=== PATIENT | female | born 1945 | race Caucasian/White ===

== ENCOUNTER 2017-10-25 20:29 | Inpatient (IN) ==
--- OUTSIDE RECORDS SUMMARY | 2017-10-25 21:13 | External Medical Summary | Referral Summary ---
:1945 [facility] Address [address] [place] [address] Care Team Providers Name Role Phone Josh Canas Primary Care Physician Encounter VC Date(s): 08/20/16 - 08/20/16 [facility] [address] [place] [address] [place] Discharge Diagnosis: Lower urinary tract symptoms (LUTS) Discharge Diagnosis: Acute pain of left shoulder Discharge Diagnosis: Left shoulder pain Discharge Diagnosis: Lower urinary tract symptoms (LUTS) Discharge Diagnosis: Diabetes mellitus type 2, uncontrolled, with complications Discharge Disposition: 01-Home or Self Care Attending Physician: Danna Clifton MD Admitting Physician: Josh Canas DO Vital Signs Most recent to oldest [Reference Range]: 1 Temperature Oral [35.8-37.3 degC] 36.1 degC (08/20/16 2:38 PM) Peripheral Pulse Rate [60-100 bpm] 80 bpm (08/20/16 2:38 PM) Respiratory Rate [14-20 br/min] 20 br/min (08/20/16 2:38 PM) Blood Pressure [90-140/60-90 mmHg] 136/82 mmHg (08/20/16 2:38 PM) Problem List Condition Effective Dates Status Health Status Informant Acute pain(Confirmed) Active Antimicrobial resistant Active organism(Confirmed)1 Anxiety(Confirmed) Active At risk for activity Active intolerance(Confirmed)2 At risk for falls(Confirmed)3 Active At risk for infection(Confirmed)4 Active At risk for injury(Confirmed)5 Active At risk for unstable blood glucose Active level(Confirmed)6 At risk of pressure sore(Confirmed) Active Bowel dysfunction(Confirmed)7 Active Chronic back pain(Confirmed) Active Back pain, chronic(Confirmed) Active Chronic tension headaches(Confirmed) Active Coronary disease(Confirmed) < 01/08/15 Resolved Diabetes(Confirmed) < 01/27/14 Resolved patient Gastroparesis due to DM(Confirmed) Active ESBL(Confirmed)8 Active Fluid imbalance(Confirmed)9 Active H/O osteopenia(Confirmed) Active Heart disease(Confirmed) Active patient Hypercholesteremia(Confirmed) Active patient Hypertension(Confirmed) Active patient Acute kidney injury(Confirmed) Active Insomnia(Confirmed) Active Knowledge deficit(Confirmed)10 Active LBP (low back pain)(Confirmed) Active Depression with anxiety(Confirmed) Active Chronic insomnia(Confirmed) Active Depression(Confirmed) Active Tissue perfusion Active alteration(Confirmed)11 Diabetes mellitus type 2, Active uncontrolled, with complications(Confirmed) 1Urine from NOT FOUND collected 04/13/16 12:36:00 [id number] added automatically by system based on initiation of At Risk for Activity Intolerance Plan of Oyff0Lfbf problem was added by Discern Expert.4Problem added automatically by system based on initiation of At Risk for Infection in Nutrition Planof Magi9Ymkgsbi added automatically by system based on initiation of Risk for Injury Plan of Ehni9Dqcveww added automatically by system based on initiation of At Risk for Unstable Blood Glucose Planof Twvd8Ytxihme added automatically by system based on initiation of Bowel Dysfunction Plan of Bult7Tlosj from NOT FOUND collected 09/07/15 17:48:00 [id number] added automatically by system based on initiation of Fluid Volume Imbalance Plan of [id number] added automatically by system based on initiation of Knowledge Deficit Plan of [id number] added automatically by system based on initiation of Tissue Perfusion Cerebral Plan of Care Allergies, Adverse Reactions, Alerts Substance Reaction Severity Status Macrodantin Convulsion Severe Active penicillin Hives Medium Active Medications acetaminophen 500 mg oral tablet 500 mg 1 tabs, Oral, q8hr, Headache, 0 Refill(s) Start Date: 09/14/15 Status: Orderedaspirin 81 mg oral tablet 1 tabs, Oral, Daily, # 30 tabs, 0 Refill(s), other reason (Rx) Start Date: 06/14/14 Status: OrderedGlucometer (DME) DME Item Glucometer (1) Lancets ( 1 box) Test Strips ( 1 box) 6 refills each on Test Strips , Lancets INSURANCE WILL COVER ON EACH Test FBS, 2 Hours after each Meal Daily Diag:E11.65 Length: 99months HgbA1C: 9.1 11/01/2015, See Instructions,... Start Date: 11/22/15 Status: OrderedKeflex 500 mg oral capsule 500 mg 1 caps, Oral, BID, X 7 days, # 14 caps, 0 Refill(s), Pharmacy: [facility], 1 capsOral BID,x7 days Start Date: 08/20/16 Stop Date: 08/27/16 Status: OrderedLevemir 100 units/mL subcutaneous solution 30 units, SubCutaneous, Bedtime (once a day), please give patient 28 day supply , # 10 mL, 0 Refill(s), Pharmacy: [facility], 30 units SubCutaneous Bedtime (once a day),Instr:please give patient 28 day supply Start Date: 05/09/16 Status: Orderedlisinopril 10 mg oral tablet 10 mg 1 tabs, Oral, Daily, 0 Refill(s) Start Date: 01/03/16 Status: OrderedmetFORMIN 500 mg oral tablet, extended release 1,000 mg 2 tabs, Oral, BID, Take with meals, start with 1 tab BID x 1 week, then 2 tabs qAM and 1tabqPM x1 week, then 2 tabs BID, # 120 tabs, 6 Refill(s), Pharmacy: [place] [id number], 2 tabs OralBID,x30 days,Instr:Take with meals , start with 1... Start Date: 11/22/15 Stop Date: 06/19/16 Status: OrderedNovoLOG 100 units/mL subcutaneous solution See Instructions, INJECT 8 UNITS SUBCUTANEOUSLY THREE TIMES DAILY BEFORE MEAL(S) , # 10 unknown unit,eRx: [facility] Start Date: 07/30/16 Status: OrderedReglan 10 mg oral tablet 10 mg 1 tabs, Oral, QID, # 120 tabs, 0 Refill(s), Pharmacy: [facility], 1 tabs Oral QID Start Date: 11/01/15 Status: Orderedsertraline 100 mg oral tablet See Instructions, TAKE TWO TABLETS BY MOUTH ONCE DAILY, # 60 tabs, 2 Refill(s), eRx: [facility], TAKE TWO TABLETS BY MOUTH ONCE DAILY Start Date: 02/28/16 Status: Ordered Results Hematology Most recent to oldest [Reference Range]: 1 WBC [4.8-10.8 10*3/uL] 9.1 10*3/uL (08/20/16 3:24 PM) RBC [4.00-5.20] 4.72 (08/20/16 3:24 PM) Hgb [12.0-16.0 gm/dL] 12.8 gm/dL (08/20/16 3:24 PM) Hct [37.0-47.0 %] 40.9 % (08/20/16 3:24 PM) MCV [82.0-99.0 fL] 86.7 fL (08/20/16 3:24 PM) MCH [27.0-32.0 pg] 27.1 pg (08/20/16 3:24 PM) MCHC [32.0-36.0 gm/dL] 31.3 gm/dL *LOW* (08/20/16 3:24 PM) RDW [11.5-14.5 %] 14.1 % (08/20/16 3:24 PM) Platelet [150-400 10*3/uL] 196 10*3/uL (08/20/16 3:24 PM) MPV [8.8-14.8 fL] 11.0 fL (08/20/16 3:24 PM) Chemistry Most recent to oldest [Reference Range]: 1 Sodium Lvl [135-144 mEq/L] 134 mEq/L *LOW* (08/20/16 3:24 PM) Potassium Lvl [3.5-5.2 mEq/L] 5.5 mEq/L *HI* (08/20/16 3:24 PM) Chloride [99-111 mEq/L] 104 mEq/L (08/20/16 3:24 PM) CO2 [22-31 mEq/L] 19 mEq/L *LOW* (08/20/16 3:24 PM) AGAP [3-20] 11 (08/20/16 3:24 PM) BUN [10-20 mg/dL] 28 mg/dL *HI* (08/20/16 3:24 PM) Glucose Lvl [70-99 mg/dL] 461 mg/dL *HHI* (08/20/16 3:24 PM) Creatinine Lvl [0.57-1.11 mg/dL] 1.35 mg/dL *HI* (08/20/16 3:24 PM) eGFR [>60 mL/min] 39 mL/min 1 *ABN* (08/20/16 3:24 PM) Calcium Lvl [8.9-10.5 mg/dL] 9.6 mg/dL (08/20/16 3:24 PM) Albumin Lvl [3.4-4.8 gm/dL] 4.2 gm/dL (08/20/16 3:24 PM) Phosphorus [2.3-4.7 mg/dL] 3.7 mg/dL (08/20/16 3:24 PM) Hgb A1c [4.1-5.6 %] 10.0 % *HI* (08/20/16 3:24 PM) eAvg Glucose 240.3 mg/dL (08/20/16 3:24 PM) 1Result Comment: Multiply eGFR results by 1.21 for race.Urinalysis Most recent to oldest [Reference Range]: 1 UA Color Yellow (08/20/16 3:28 PM) UA Appear Sl Cloudy (08/20/16 3:28 PM) UA pH [5.0-8.0] 5.5 (08/20/16 3:28 PM) UA Leuk Est [Negative] Pos 1+ *ABN* (08/20/16 3:28 PM) UA Nitrite [Negative] Positive *ABN* (08/20/16 3:28 PM) UA Protein [Negative] Trace *ABN* (08/20/16 3:28 PM) UA Glucose [Negative] Pos 3+ *ABN* (08/20/16 3:28 PM) UA Ketones [Negative] Negative (08/20/16 3:28 PM) UA Urobilinogen [<=1.0 mg/dL] 0.2 mg/dL (08/20/16 3:28 PM) UA Bili [Negative] Negative (08/20/16 3:28 PM) UA Blood [Negative] Trace *ABN* (08/20/16 3:28 PM) UA Spec Grav [1.003-1.030] 1.015 (08/20/16 3:28 PM) Type Cl Catch (08/20/16 3:28 PM) UA WBC [0-4 /HPF] >50 /HPF *ABN* (08/20/16 3:28 PM) UA RBC [0-4] 0-4 (08/20/16 3:28 PM) Epithelial Cells 5-10 (08/20/16 3:28 PM) UA Hyal Cast [0-3] 1-3 (08/20/16 3:28 PM) Immunizations Given and Recorded Vaccine Date Status Refusal Reason influenza virus vaccine, inactivated 05/09/16 Given influenza virus vaccine, inactivated1 05/24/15 Given influenza virus vaccine, inactivated2 05/24/15 Given influenza virus vaccine, inactivated 06/14/14 Given pneumococcal 23-polyvalent vaccine3 01/28/14 Given 1Early/Late Reason: Other : DID NOT CROSS [id number] Comment: did not cross [id number]/Late Reason: Other : STATUS Procedures Procedure Date Related Diagnosis Body Site Open Reduction Internal Fixation Ankle (Left)1 11/01/14 Adrenalectomy Appendectomy Cholecystectomy Hysterectomy Provision of stents or bite blocks Total knee arthroplasty 1auto-populated from documented surgical case Social History Social History Type Response Smoking Status Never smoker Assessment and Plan No data available for this section
--- OUTSIDE RECORDS SUMMARY | 2017-10-25 21:13 | External Medical Summary | Referral Summary ---
:[address] [facility] Address [address] [place] [address] Care Team Providers Name Role Phone Josh Canas Primary Care Physician Encounter VC Date(s): 04/25/16 - 04/25/[address] [facility] [address], [place] [address] Discharge Diagnosis: Left foot pain Discharge Diagnosis: Contusion of foot, right Discharge Diagnosis: Accidental fall Discharge Disposition: 01-Home or Self Care Attending Physician: Benja Moran MD Admitting Physician: Benja Moran MD Vital Signs Most recent to oldest [Reference Range]: 1 Temperature Oral [35.8-37.3 degC] 36.8 degC (04/25/16 10:08 AM) Peripheral Pulse Rate [60-100 bpm] 94 bpm (04/25/16 12:29 PM) Respiratory Rate [14-20 br/min] 16 br/min (04/25/16 10:08 AM) Blood Pressure [90-140/60-90 mmHg] 141/82 mmHg *HI* (04/25/16 12:29 PM) SpO2 100 % (04/25/16 12:29 PM) Problem List Condition Effective Dates Status [...] Chronic tension headaches(Confirmed) Active Coronary disease(Confirmed) < 5/24/15 Resolved Diabetes(Confirmed) < 01/27/14 Resolved patient Gastroparesis [...] 1Urine from NOT FOUND collected 04/13/16 12:36:00 [id number] added automatically by system based on initiation of At Risk for Activity Intolerance Plan of Xlnq8Uznw problem was added by Discern Expert.4Problem added automatically by system based on initiation of At Risk for Infection in Nutrition Planof Scby7Teybzdr added automatically by system based on initiation of Risk for Injury Plan of Wqnd1Nhgcuvq added automatically by system based on initiation of At Risk for Unstable Blood Glucose Planof Cysc0Sdpnsix added automatically by system based on initiation of Bowel Dysfunction Plan of Zfgf8Fgsqy from NOT FOUND collected 09/07/15 17:48:00 [id number] added automatically by system based on initiation of Fluid Volume Imbalance Plan of Qykp76Qjxlqak added automatically by system based on initiation of Knowledge Deficit Plan of Pqxh61Aoeekby added automatically by system based on initiation [...] 11/01/2015, See Instructions,... Start Date: 11/22/15 Status: OrderedLevemir 100 units/mL subcutaneous solution 35 units, SubCutaneous, Bedtime (once a day), # 15 mL, 3 Refill(s), Pharmacy: [facility], 35 units SubCutaneous Bedtime (once a day) Start Date: 01/19/16 Status: Orderedlisinopril 10 mg oral tablet 10 mg 1 tabs, Oral, Daily, 0 Refill(s) Start Date: 01/03/16 Status: OrderedmetFORMIN 500 mg oral tablet, extended release 1,000 mg 2 tabs, Oral, BID, Take with meals, start with 1 tab BID x 1 week, then 2 tabs qAM and 1tabqPM x1 week, then 2 tabs BID, # 120 tabs, 6 Refill(s), Pharmacy: [facility], 2 tabs OralBID,x30 days,Instr:Take with meals , start with 1... Start Date: 11/22/15 Stop Date: 06/19/16 Status: OrderedNovoLOG 10 units, SubCutaneous, TIDAC, 0 Refill(s) Start Date: 11/01/15 Status: OrderedNovoLOG 100 units/mL subcutaneous solution 8 units, SubCutaneous, TIDAC, # 10 mL, 0 Refill(s), Pharmacy: [facility], 8 units SubCutaneous TIDAC Start Date: 04/24/16 Status: OrderedReglan 10 mg oral tablet 10 mg 1 tabs, Oral, QID, # 120 tabs, 0 Refill(s), Pharmacy: [facility], 1 tabs Oral QID Start Date: 11/01/15 Status: Orderedsertraline 100 mg oral tablet See Instructions, TAKE TWO TABLETS BY MOUTH ONCE DAILY, # 60 tabs, 2 Refill(s), eRx: [facility], TAKE TWO TABLETS BY MOUTH ONCE DAILY Start Date: 02/28/16 Status: OrderedtraMADol 50 mg oral tablet 50 mg 1 tabs, Oral, q12hr, as needed for pain, X 3 days, # 6 tabs, 0 Refill(s) Start Date: 04/25/16 Stop Date: 04/28/16 Status: Ordered Results No data available for this section Immunizations Vaccine Date Refusal Reason influenza virus vaccine, inactivated1 05/24/15 influenza virus vaccine, inactivated 06/14/14 pneumococcal 23-polyvalent vaccine2 01/28/14 1Early/Late Reason: Other : DID NOT CROSS [id number] Reason: Other : STATUS Procedures Procedure Date Related Diagnosis Body Site Open Reduction Internal Fixation Ankle (Left)1 11/01/14 Adrenalectomy Appendectomy Cholecystectomy Hysterectomy Provision of stents or bite blocks Total knee arthroplasty 1auto-populated from documented surgical case Social History Social History Type Response Smoking Status Never smoker Assessment and Plan No data available for this section
--- OUTSIDE RECORDS SUMMARY | 2017-10-25 21:13 | External Medical Summary | Referral Summary ---
:1945 Author Organization [facility] Address [address] [place] [address] Care Team Providers Name Role Phone Josh Canas Primary Care Physician Encounter VC Date(s): 04/13/16 - 04/13/16 [facility] [address], [place] [address] Discharge Diagnosis: Neck muscle strain Discharge Diagnosis: Acute UTI Discharge Disposition: 01-Home or Self Care Attending Physician: Chay Wen MD Admitting Physician: Chay Wen MD Vital Signs Most recent to oldest [Reference Range]: 1 Temperature Oral [35.8-37.3 degC] 36.8 degC (04/13/16 11:46 AM) Peripheral Pulse Rate [60-100 bpm] 83 bpm (04/13/16 1:41 PM) Heart Rate Monitored [60-100 bpm] 73 bpm (04/13/16 1:22 PM) Respiratory Rate [14-20 br/min] 18 br/min (04/13/16 1:41 PM) Blood Pressure [90-140/60-90 mmHg] 118/95 mmHg (04/13/16 1:41 PM) Mean Arterial Pressure, Cuff 103 mmHg (04/13/16 1:22 PM) SpO2 98 % (04/13/16 1:41 PM) Problem List Condition Effective Dates Status Health Status Informant Acute pain(Confirmed) Active Anxiety(Confirmed) Active At risk for activity Active intolerance(Confirmed)1 At risk for falls(Confirmed)2 Active At risk for infection(Confirmed)3 Active At risk for injury(Confirmed)4 Active At risk for unstable blood glucose Active level(Confirmed)5 At risk of pressure sore(Confirmed) Active Bowel dysfunction(Confirmed)6 Active Chronic back pain(Confirmed) Active Back pain, chronic(Confirmed) Active Chronic tension headaches(Confirmed) Active Coronary disease(Confirmed) < 01/08/15 Resolved Diabetes(Confirmed) < 01/27/14 Resolved patient Gastroparesis due to DM(Confirmed) Active ESBL(Confirmed)7 Active Fluid imbalance(Confirmed)8 Active H/O osteopenia(Confirmed) Active Heart disease(Confirmed) Active patient Hypercholesteremia(Confirmed) Active patient Hypertension(Confirmed) Active patient Acute kidney injury(Confirmed) Active Insomnia(Confirmed) Active Knowledge deficit(Confirmed)9 Active LBP (low back pain)(Confirmed) Active Depression with anxiety(Confirmed) Active Chronic insomnia(Confirmed) Active Depression(Confirmed) Active Tissue perfusion Active alteration(Confirmed)10 Diabetes mellitus type 2, Active uncontrolled, with complications(Confirmed) 1Problem added automatically by system based on initiation of At Risk for Activity Intolerance Plan of Rafo2Ngtg problem was added by Discern Expert.3Problem added automatically by system based on initiation of At Risk for Infection in Nutrition Planof Daon7Yipknkz added automatically by system based on initiation of Risk for Injury Plan of Zmsf8Kfbuabo added automatically by system based on initiation of At Risk for Unstable Blood Glucose Planof Cyxx8Blfjphb added automatically by system based on initiation of Bowel Dysfunction Plan of Rvzm2Lnzdh from NOT FOUND collected 09/07/15 17:48:00 [id number] added automatically by system based on initiation of Fluid Volume Imbalance Plan of Jukp9Mokswfr added automatically by system based on initiation of Knowledge Deficit Plan of Gdpj75Jjpknzn added automatically by system based on initiation [...] other reason (Rx) Start Date: 06/14/14 Status: Orderedcephalexin 500 mg oral tablet 500 mg 1 tabs, Oral, BID, X 7 days, # 14 tabs, 0 Refill(s) Start Date: 04/13/16 Stop Date: 04/20/16 Status: Orderedcyclobenzaprine 10 mg oral tablet 10 mg 1 tabs, Oral, TID, as needed for spasm, X 5 days, # 15 tabs, 0 Refill(s) Start Date: 04/13/16 Stop Date: 04/18/16 Status: OrderedGlucometer (DME) DME Item Glucometer (1) [...] day), # 15 mL, 3 Refill(s), Pharmacy: [facility], 35 units SubCutaneous Bedtime (once a day) Start Date: 01/19/16 Status: Orderedlisinopril 10 mg oral tablet 10 mg 1 tabs, Oral, Daily, 0 Refill(s) Start Date: 01/03/16 Status: OrderedLortab 5/325 oral tablet 1 tabs, Oral, q6hr, X 3 days, # 12 tabs, 0 Refill(s) Start Date: 04/13/16 Stop Date: 04/16/16 Status: OrderedmetFORMIN 500 mg oral tablet, extended release 1,000 mg 2 tabs, Oral, BID, Take with meals, start with 1 tab BID x 1 week, then 2 tabs qAM and 1tabqPM x1 week, then 2 tabs BID, # 120 tabs, 6 Refill(s), Pharmacy: [facility], 2 tabs OralBID,x30 days,Instr:Take with meals , start with 1... Start Date: 11/22/15 Stop Date: 06/19/16 Status: OrderedNovoLOG 10 units, SubCutaneous, TIDAC, 0 Refill(s) Start Date: 11/01/15 Status: OrderedReglan 10 mg oral tablet 10 mg 1 tabs, Oral, QID, # 120 tabs, 0 Refill(s), Pharmacy: [facility], 1 tabs Oral QID Start Date: 11/01/15 Status: Orderedsertraline 100 mg oral tablet See Instructions, TAKE TWO TABLETS BY MOUTH ONCE DAILY, # 60 tabs, 2 Refill(s), eRx: [facility], TAKE TWO TABLETS BY MOUTH ONCE DAILY Start Date: 02/28/16 Status: Ordered Results Chemistry Most recent to oldest [Reference Range]: 1 Sodium Venous [136-144 mEq/L] 136 mEq/L (04/13/16 12:41 PM) Potassium Venous [3.6-5.1 mEq/L] 4.5 mEq/L 1 (04/13/16 12:41 PM) Calcium Ionized Venous [1.19-1.41 mmol/L] 1.15 mmol/L *LOW* (04/13/16 12:41 PM) Total CO2 Venous [25-29 mEq/L] 14 mEq/L *LOW* (04/13/16 12:41 PM) HGB Venous NPT [12.0-16.0 gm/dL] 12.9 gm/dL (04/13/16 12:41 PM) HCT Venous [37.0-47.0 %] 38.0 % (04/13/16 12:41 PM) Glucose Venous [70-100 mg/dL] 169 mg/dL *HI* (04/13/16 12:41 PM) BUN Venous [4-20] 25 *HI* (04/13/16 12:41 PM) Creatinine Venous [0.4-1.0 mg/dL] 1.2 mg/dL *HI* (04/13/16 12:41 PM) Venous CL [99-109 mEq/L] 114 mEq/L *HI* (04/13/16 12:41 PM) Anion Gap, Les [3-20] 8 (04/13/16 12:41 PM) 1Result Comment: This test was performed on a whole blood specimen. The presence or absence of hemolysis cannot be assessed. Hemolysis can falsely elevate potassium levels. Normals are for venous specimens only.Urinalysis Most recent to oldest [Reference Range]: 1 UA Color Yellow (04/13/16 12:36 PM) UA Appear Cloudy *ABN* (04/13/16 12:36 PM) UA pH [5.0-8.0] 5.0 (04/13/16 12:36 PM) UA Leuk Est [Negative] Pos 3+ *ABN* (04/13/16 12:36 PM) UA Nitrite [Negative] Positive *ABN* (04/13/16 12:36 PM) UA Protein [Negative] Negative (04/13/16 12:36 PM) UA Glucose [Negative] Negative (04/13/16 12:36 PM) UA Ketones [Negative] Negative (04/13/16 12:36 PM) UA Urobilinogen [<1.0] Negative (04/13/16 12:36 PM) UA Bili [Negative] Negative (04/13/16 12:36 PM) UA Blood [Negative] Negative (04/13/16 12:36 PM) UA Spec Grav [1.003-1.030] 1.025 (04/13/16 12:36 PM) Type Clean Catch (04/13/16 12:36 PM) UA WBC [0-4 /HPF] >50 /HPF *ABN* (04/13/16 12:36 PM) UA RBC [0-2] 2-5 (04/13/16 12:36 PM) Epithelial Cells 5-10 (04/13/16 12:36 PM) UA Bacteria Numerous *ABN* (04/13/16 12:36 PM) UA Hyal Cast [0-3] 4-6 *ABN* (04/13/16 12:36 PM) UA Mucous Present (04/13/16 12:36 PM) Immunizations Vaccine Date Refusal Reason influenza virus vaccine, inactivated1 05/24/15 influenza virus vaccine, inactivated 06/14/14 pneumococcal 23-polyvalent vaccine2 01/28/14 1Early/Late Reason: Other : DID NOT CROSS [id number]/Late Reason: Other : STATUS Procedures Procedure Date Related Diagnosis Body Site Open Reduction Internal Fixation Ankle (Left)1 11/01/14 Adrenalectomy Appendectomy Cholecystectomy Hysterectomy Provision of stents or bite blocks Total knee arthroplasty 1auto-populated from documented surgical case Social History Social History Type Response Smoking Status Never smoker Assessment and Plan No data available for this section
--- OUTSIDE RECORDS SUMMARY | 2017-10-25 21:15 | External Medical Summary | Referral Summary ---
:1945 [facility] Address [address] [place] [address] Care Team Providers Name Role Phone Josh Canas Primary Care Physician Encounter VC Date(s): 02/27/15 - 02/27/15 [facility] [address] [place] [address] [place] Discharge Diagnosis: Type 2 diabetes mellitus not at goal Discharge Diagnosis: Ankle pain, left Discharge Disposition: 01-Home or Self Care Attending Physician: Som Hernández MD Admitting Physician: Josh Canas DO Vital Signs No data available for this section Problem List Condition Effective Dates Status Health Status Informant Acute pain(Confirmed) Active Anxiety(Confirmed) Active At risk for activity Active intolerance(Confirmed)1 At risk for falls(Confirmed)2 Active At risk for infection(Confirmed)3 Active At risk for injury(Confirmed)4 Active At risk for unstable blood glucose Active level(Confirmed)5 At risk of pressure sore(Confirmed) Active Chronic back pain(Confirmed) Active Back pain, chronic(Confirmed) Active Chronic tension headaches(Confirmed) Active Coronary disease(Confirmed) < 01/08/15 Resolved Diabetes(Confirmed) < 01/27/14 Resolved patient H/O osteopenia(Confirmed) Active Heart disease(Confirmed) Active patient Hypercholesteremia(Confirmed) Active patient Hypertension(Confirmed) Active patient Acute kidney injury(Confirmed) Active Insomnia(Confirmed) Active Knowledge deficit(Confirmed)6 Active LBP (low back pain)(Confirmed) Active Depression with anxiety(Confirmed) Active Chronic insomnia(Confirmed) Active Depression(Confirmed) Active Tissue perfusion Active alteration(Confirmed)7 Diabetes mellitus type 2, Active uncontrolled, with complications(Confirmed) 1Problem added automatically by system based on initiation of At Risk for Activity Intolerance Plan of Yvzq6Lowc problem was added by Discern Expert.3Problem added automatically by system based on initiation of At Risk for Infection in Nutrition Planof Mzon3Qhbvped added automatically by system based on initiation of Risk for Injury Plan of Migx8Vvnsvvr added automatically by system based on initiation of At Risk for Unstable Blood Glucose Planof Cdkb3Ktlhchu added automatically by system based on initiation of Knowledge Deficit Plan of Bxrf3Iymrcyh added automatically by system based on initiation of Tissue Perfusion Cerebral Plan of Care Allergies, Adverse Reactions, Alerts Substance Reaction Severity Status Macrodantin Convulsion Severe Active penicillin Hives Medium Active Medications aspirin 81 mg oral tablet 1 tabs, Oral, Daily, # 30 tabs, 0 Refill(s), other reason (Rx) Start Date: 06/14/14 Status: OrderedbusPIRone 15 mg oral tablet 15 mg 1 tabs, Oral, BID, 0 Refill(s) Start Date: 07/15/15 Status: OrderedhydrOXYzine hydrochloride 50 mg oral tablet 50 mg 1 tabs, Oral, QID, as needed for anxiety, # 40 tabs, 3 Refill(s), Pharmacy : [facility], 1 tabs Oral QID,PRN:as needed for anxiety Start Date: 08/24/15 Status: OrderedLevemir 100 units/mL subcutaneous solution 30 units, SubCutaneous, Bedtime (once a day), # 15 mL, 3 Refill(s), Pharmacy: [facility], 30 units SubCutaneous Bedtime (once a day) Start Date: 07/24/15 Status: OrderedmetFORMIN 1000 mg oral tablet 1,000 mg 1 tabs, Oral, BID, # 60 tabs, 3 Refill(s), Pharmacy: [facility], 1 tabs Oral BID Start Date: 06/05/15 Status: Orderedmetoprolol tartrate 25 mg oral tablet 25 mg 1 tabs, Oral, BID, # 60 tabs, 0 Refill(s), Pharmacy: [facility] Start Date: 07/16/15 Status: OrderedMiscellaneous DME DME Item Test Strips for Glucometer (Insurance will cover) Test Four Times Daily: FBS, 2 hours after each Meal Quanity: 1 Box (100) Length of Need: 99 months Diag: E11.8 HgbA1C: 8.8 07/15/2015, See Instructions, # 1 boxes, 0 Refill(s), Supply Start Date: 07/24/15 Status: OrderedNovoLOG 100 units/mL subcutaneous solution 10 units, SubCutaneous, TIDAC, # 15 mL, 3 Refill(s), Pharmacy: [facility], 10 units SubCutaneous TIDAC Start Date: 07/24/15 Status: OrderedReglan 10 mg oral tablet 10 mg, Oral, Daily, # 30 tabs, 3 Refill(s), Pharmacy: [facility], 10 mg Oral Daily Start Date: 03/22/15 Status: OrderedtraZODone 50 mg oral tablet 50 mg 1 tabs, Oral, Bedtime (once a day), # 30 tabs, 0 Refill(s), Pharmacy: [facility], 1 tabs Oral Bedtime (once a day) Start Date: 05/10/15 Status: OrderedVoltaren 1% topical gel 1 deric, Topical, QID, as needed for pain, # 100 g, 0 Refill(s) Start Date: 07/14/15 Status: OrderedWellbutrin XL 150 mg/24 hours oral tablet, extended release 150 mg 1 tabs, Oral, q24hr, # 30 tabs, 0 Refill(s), Pharmacy: [facility], 1 tabs Oral q24hr Start Date: 05/10/15 Status: OrderedZoloft 100 mg oral tablet 200 mg 2 tabs, Oral, Daily, # 60 tabs, 3 Refill(s), Pharmacy: [facility], 2 tabs Oral Daily,x30 days Start Date: 06/19/15 Stop Date: 10/17/15 Status: Ordered Results Chemistry Most recent to oldest [Reference Range]: 1 Sodium Lvl [135-144 mEq/L] 137 mEq/L (02/27/15 2:51 PM) Potassium Lvl [3.5-5.2 mEq/L] 5.4 mEq/L *HI* (02/27/15 2:51 PM) Chloride [99-111 mEq/L] 106 mEq/L (02/27/15 2:51 PM) CO2 [22-31 mEq/L] 26 mEq/L (02/27/15 2:51 PM) AGAP [3-20] 5 (02/27/15 2:51 PM) BUN [10-20 mg/dL] 15 mg/dL (02/27/15 2:51 PM) Glucose Lvl [70-99 mg/dL] 219 mg/dL *HI* (02/27/15 2:51 PM) Creatinine Lvl [0.57-1.11 mg/dL] 0.98 mg/dL (02/27/15 2:51 PM) eGFR [>60 mL/min] 56 mL/min 1 *ABN* (02/27/15 2:51 PM) Calcium Lvl [8.9-10.5 mg/dL] 9.5 mg/dL (02/27/15 2:51 PM) 1Result Comment: Multiply eGFR results by 1.21 for race. Immunizations Vaccine Date Refusal Reason influenza virus vaccine, inactivated1 05/24/15 influenza virus vaccine, inactivated 06/14/14 pneumococcal 23-polyvalent vaccine2 01/28/14 1Early/Late Reason: Other : DID NOT CROSS [id number] Reason: Other : STATUS Procedures Procedure Date Related Diagnosis Body Site Open Reduction Internal Fixation Ankle (Left)1 11/01/14 Adrenalectomy Appendectomy Cholecystectomy Hysterectomy Provision of stents or bite blocks Total knee arthroplasty 1auto-populated from documented surgical case Social History Social History Type Response Smoking Status Never smoker Assessment and Plan No data available for this section
--- OUTSIDE RECORDS SUMMARY | 2017-10-25 21:15 | External Medical Summary | Referral Summary ---
:1945 Author [facility] Address [address] [place] [address] Care Team Providers Name Role Phone Josh Canas Primary Care Physician Encounter VC Date(s): 01/12/15 - 01/12/15 [facility] [address] [place] [address] [place] Discharge Disposition: 01-Home or Self Care Attending Physician: Josh Canas DO Admitting Physician: Josh Canas DO Vital Signs [...] At Risk for Activity Intolerance Plan of Cwlk2Xcih problem was added by Discern Expert.3Problem added automatically by system based on initiation of At Risk for Infection in Nutrition Planof Qbst8Fomvkky added automatically by system based on initiation of Risk for Injury Plan of Eoci0Yaojxjs added automatically by system based on initiation of At Risk for Unstable Blood Glucose Planof Jzpu3Vdfacre added automatically by system based on initiation of Knowledge Deficit Plan of Tmkr0Waeqvvb added automatically by system based on initiation [...] as needed for anxiety, # 40 tabs, 0 Refill(s), Pharmacy : [facility], 1 tabs Oral QID,PRN:as needed for anxiety Start Date: 07/24/15 Status: OrderedLevemir 100 units/mL subcutaneous solution 30 units, SubCutaneous, Bedtime (once a day), # 15 mL, 3 Refill(s), Pharmacy: [facility], 30 units SubCutaneous Bedtime (once a day) Start Date: 07/24/15 Status: OrderedmetFORMIN 1000 mg oral tablet 1,000 mg 1 tabs, Oral, BID, # 60 tabs, 3 Refill(s), Pharmacy: [facility], 1 tabs Oral BID Start Date: 06/05/15 Status: Orderedmetoprolol tartrate 25 mg oral tablet 25 mg 1 tabs, Oral, BID, # 60 tabs, 0 Refill(s), Pharmacy: [facility] Start Date: 07/16/15 Status: [...] TIDAC, # 15 mL, 3 Refill(s), Pharmacy: [facility], 10 units SubCutaneous TIDAC Start Date: 07/24/15 Status: OrderedReglan 10 mg oral tablet 10 mg, Oral, Daily, # 30 tabs, 3 Refill(s), Pharmacy: [facility], 10 mg Oral Daily Start Date: 03/22/15 Status: OrderedtraZODone 50 mg oral tablet 50 mg 1 tabs, Oral, Bedtime (once a day), # 30 tabs, 0 Refill(s), Pharmacy: [facility], 1 tabs Oral Bedtime (once a day) Start Date: 05/10/15 Status: OrderedVoltaren 1% topical gel 1 deric, Topical, QID, as needed for pain, # 100 g, 0 Refill(s) Start Date: 07/14/15 Status: OrderedWellbutrin XL 150 mg/24 hours oral tablet, extended release 150 mg 1 tabs, Oral, q24hr, # 30 tabs, 0 Refill(s), Pharmacy: [facility], 1 tabs Oral q24hr Start Date: 05/10/15 Status: OrderedZoloft 100 mg oral tablet 200 mg 2 tabs, Oral, Daily, # 60 tabs, 3 Refill(s), Pharmacy: [facility], 2 tabs Oral Daily,x30 days Start Date: 06/19/15 Stop Date: 10/17/15 Status: Ordered Results No data available for this section Immunizations Vaccine Date Refusal Reason influenza virus vaccine, inactivated1 05/24/15 influenza virus vaccine, inactivated 06/14/14 pneumococcal 23-polyvalent vaccine2 01/28/14 1Early/Late Reason: Other : DID NOT CROSS [id number]/Late Reason: Other : STATUS Procedures Procedure Date Related Diagnosis Body Site Open Reduction Internal Fixation Ankle (Left)1 11/01/14 Adrenalectomy Appendectomy Cholecystectomy Hysterectomy Total knee arthroplasty 1auto-populated from documented surgical case Social History Social History Type Response Smoking Status Never smoker Assessment and Plan No data available for this section
--- OUTSIDE RECORDS SUMMARY | 2017-10-25 21:15 | External Medical Summary | Referral Summary ---
:1945 Author Organization [facility] Address [address] [place] [address] Care Team Providers Name Role Phone Josh Canas Primary Care Physician Encounter VC Date(s): 03/05/16 - 03/05/16 [facility] [address] [place] [address] [place] Discharge Disposition: 01-Home or Self Care Attending Physician: Sabi Bobo MD Admitting Physician: Ken Dickson MD Vital Signs Most recent to oldest [Reference Range]: 1 Temperature Oral [35.8-37.3 degC] 36.8 degC (03/05/16 3:52 PM) Peripheral Pulse Rate [60-100 bpm] 76 bpm (03/05/16 3:52 PM) Respiratory Rate [14-20 br/min] 20 br/min (03/05/16 3:52 PM) Blood Pressure [90-140/60-90 mmHg] 132/62 mmHg (03/05/16 3:52 PM) Problem List Condition Effective Dates Status [...] At Risk for Activity Intolerance Plan of Fszu6Lxcm problem was added by Discern Expert.3Problem added automatically by system based on initiation of At Risk for Infection in Nutrition Planof Jyup5Otufbgi added automatically by system based on initiation of Risk for Injury Plan of Ahav0Lrgtkgk added automatically by system based on initiation of At Risk for Unstable Blood Glucose Planof Tfxc4Huxahxx added automatically by system based on initiation of Bowel Dysfunction Plan of Mngl3Osodt from NOT FOUND collected 09/07/15 17:48:00 BGX3Kicvysy added automatically by system based on initiation of Fluid Volume Imbalance Plan of Jwaj8Katcexy added automatically by system based on initiation of Knowledge Deficit Plan of [id number] added automatically by system based on initiation [...] day), # 15 mL, 3 Refill(s), Pharmacy: [facility], 35 units SubCutaneous Bedtime (once [...] BID, # 120 tabs, 6 Refill(s), Pharmacy: [facility], 2 tabs OralBID,x30 days,Instr:Take with meals , start with 1... Start Date: 11/22/15 Stop Date: 06/19/16 Status: OrderedNovoLOG 10 units, SubCutaneous, TIDAC, 0 Refill(s) Start Date: 11/01/15 Status: OrderedReglan 10 mg oral tablet 10 mg 1 tabs, Oral, QID, # 120 tabs, 0 Refill(s), Pharmacy: [facility], 1 tabs Oral QID Start Date: 11/01/15 Status: Orderedsertraline 100 mg oral tablet See Instructions, TAKE TWO TABLETS BY MOUTH ONCE DAILY, # 60 tabs, 2 Refill(s), eRx: [facility], TAKE TWO TABLETS BY MOUTH ONCE DAILY Start Date: 02/28/16 Status: Ordered Results Urinalysis Most recent to oldest [Reference Range]: 1 UA Color Yellow (03/05/16 4:10 PM) UA Appear Clear (03/05/16 4:10 PM) UA pH [5.0-8.0] 5.0 (03/05/16 4:10 PM) UA Leuk Est [Negative] Negative (03/05/16 4:10 PM) UA Nitrite [Negative] Negative (03/05/16 4:10 PM) UA Protein [Negative] Pos 1+ *ABN* (03/05/16 4:10 PM) UA Glucose [Negative] Trace *ABN* (03/05/16 4:10 PM) UA Ketones [Negative] Negative (03/05/16 4:10 PM) UA Urobilinogen [<=1.0 mg/dL] 0.2 mg/dL (03/05/16 4:10 PM) UA Bili [Negative] Negative (03/05/16 4:10 PM) UA Blood [Negative] Negative (03/05/16 4:10 PM) UA Spec Grav [1.003-1.030] 1.020 (03/05/16 4:10 PM) Type Cl Catch (03/05/16 4:10 PM) UA WBC [0-4] 20-50 *ABN* (03/05/16 4:10 PM) UA RBC [0-4] 0-4 (03/05/16 4:10 PM) Epithelial Cells 2-5 (03/05/16 4:10 PM) UA Bacteria Numerous *ABN* (03/05/16 4:10 PM) UA Hyal Cast [0-3] 4-6 *ABN* (03/05/16 4:10 PM) Immunizations Vaccine Date Refusal Reason influenza virus vaccine, inactivated1 05/24/15 influenza virus vaccine, inactivated 06/14/14 pneumococcal 23-polyvalent vaccine2 01/28/14 1Early/Late Reason: Other : DID NOT CROSS [id number]/Late Reason: Other : STATUS Procedures Procedure Date Related Diagnosis Body Site Open Reduction Internal Fixation Ankle (Left)1 11/01/14 Adrenalectomy Appendectomy Cholecystectomy Hysterectomy Provision of stents or bite blocks Total knee arthroplasty 1auto-populated from documented surgical case Social History Social History Type Response Smoking Status Never smoker Assessment and Plan No data available for this section
--- OUTSIDE RECORDS SUMMARY | 2017-10-25 21:15 | External Medical Summary | Referral Summary ---
:1945 Author Organization [facility] Address [address] [place] [address] Care Team Providers Name Role Phone Josh Canas Primary Care Physician Encounter VC Date(s): 01/31/15 - 01/31/15 [facility] [address] [place], [place] [address] Final: CHRONIC MAXILLARY SINUSITIS Discharge Diagnosis: Headache Discharge Diagnosis: Maxillary sinusitis Discharge Diagnosis: Maxillary sinusitis Discharge Diagnosis: Headache Discharge Diagnosis: Maxillary sinusitis Discharge Diagnosis: Headache Discharge Disposition: 01-Home or Self Care Attending Physician: Juanito Baig MD Admitting Physician: Juanito Baig MD Vital Signs Most recent to oldest [Reference Range]: 1 Temperature Oral [35.8-37.3 degC] 36.8 degC (01/31/15 7:40 AM) Peripheral Pulse Rate [60-100 bpm] 55 bpm *LOW* (01/31/15 10:38 AM) Heart Rate Monitored [60-100 bpm] 55 bpm *LOW* (01/31/15 10:00 AM) Respiratory Rate [14-20 br/min] 18 br/min (01/31/15 10:38 AM) Blood Pressure [90-140/60-90 mmHg] 160/78 mmHg *HI* (01/31/15 10:38 AM) Mean Arterial Pressure, Cuff 123 mmHg (01/31/15 10:00 AM) SpO2 98 % (01/31/15 10:38 AM) Problem List Condition Effective Dates Status Health [...] At Risk for Activity Intolerance Plan of Wxmi2Nvkq problem was added by Discern Expert.3Problem added automatically by system based on initiation of At Risk for Infection in Nutrition Planof Rzmu5Uanhkdy added automatically by system based on initiation of Risk for Injury Plan of Dymz6Avdbqim added automatically by system based on initiation of At Risk for Unstable Blood Glucose Planof Ovwq6Gyvvvbp added automatically by system based on initiation of Knowledge Deficit Plan of Pmst0Nepcqcz added automatically by system based on initiation [...] # 40 tabs, 0 Refill(s), Pharmacy : [facility], 1 tabs Oral QID,PRN:as needed for anxiety Start Date: 07/24/15 Status: OrderedLevemir 100 units/mL subcutaneous solution 30 units, SubCutaneous, Bedtime (once a day), # 15 mL, 3 Refill(s), Pharmacy: [facility], 30 units SubCutaneous Bedtime (once a day) Start Date: 07/24/15 Status: OrderedmetFORMIN 1000 mg oral tablet 1,000 mg 1 tabs, Oral, BID, # 60 tabs, 3 Refill(s), Pharmacy: [facility], 1 tabs Oral BID Start Date: 06/05/15 Status: Orderedmetoprolol tartrate 25 mg oral tablet 25 mg 1 tabs, Oral, BID, # 60 tabs, 0 Refill(s), Pharmacy: [facility] Start Date: 07/16/15 Status: OrderedMiscellaneous [...] TIDAC, # 15 mL, 3 Refill(s), Pharmacy: [facility], 10 units SubCutaneous TIDAC Start Date: 07/24/15 Status: OrderedReglan 10 mg oral tablet 10 mg, Oral, Daily, # 30 tabs, 3 Refill(s), Pharmacy: [facility], 10 mg Oral Daily Start Date: 03/22/15 Status: OrderedtraZODone 50 mg oral tablet 50 mg 1 tabs, Oral, Bedtime (once a day), # 30 tabs, 0 Refill(s), Pharmacy: [facility], 1 tabs Oral Bedtime (once a day) Start Date: 05/10/15 Status: OrderedVoltaren 1% topical gel 1 deric, Topical, QID, as needed for pain, # 100 g, 0 Refill(s) Start Date: 07/14/15 Status: OrderedWellbutrin XL 150 mg/24 hours oral tablet, extended release 150 mg 1 tabs, Oral, q24hr, # 30 tabs, 0 Refill(s), Pharmacy: [facility], 1 tabs Oral q24hr Start Date: 05/10/15 Status: OrderedZoloft 100 mg oral tablet 200 mg 2 tabs, Oral, Daily, # 60 tabs, 3 Refill(s), Pharmacy: [facility], 2 tabs Oral Daily,x30 days Start Date: 06/19/15 Stop Date: 10/17/15 Status: Ordered Results Chemistry Most recent to oldest [Reference Range]: 1 Blood Glucose, Capillary [70-100 mg/dL] 127 mg/dL *HI* (01/31/15 9:58 AM) Immunizations Vaccine Date Refusal Reason influenza virus vaccine, inactivated1 05/24/15 influenza virus vaccine, inactivated 06/14/14 pneumococcal 23-polyvalent vaccine2 01/28/14 1Early/Late Reason: Other : DID NOT CROSS [id number]/Late Reason: Other : STATUS Procedures Procedure Date Related Diagnosis Body Site Open Reduction Internal Fixation Ankle (Left)1 11/01/14 Adrenalectomy Appendectomy Cholecystectomy Hysterectomy Total knee arthroplasty 1auto-populated from documented surgical case Social History Social History Type Response Smoking Status Never smoker Assessment and Plan No data available for this section
--- OUTSIDE RECORDS SUMMARY | 2017-10-25 21:15 | External Medical Summary | Referral Summary ---
:1945 [facility] [address] [place] [address] Care Team Providers Name Role Phone Josh Canas Primary Care Physician Encounter VC Date(s): 04/26/16 - 04/26/16 [facility] [address] [place] [address] [place] Discharge Diagnosis: Diabetes mellitus type 2, uncontrolled, with complications Discharge Diagnosis: Injury of right foot Discharge Disposition: 01-Home or Self Care Attending Physician: Som Hernández MD Admitting Physician: Josh Canas DO Vital Signs Most recent to oldest [Reference Range]: 1 Temperature Oral [35.8-37.3 degC] 36.5 degC (04/26/16 3:02 PM) Peripheral Pulse Rate [60-100 bpm] 80 bpm (04/26/16 3:02 PM) Respiratory Rate [14-20 br/min] 16 br/min (04/26/16 3:02 PM) Blood Pressure [90-140/60-90 mmHg] 142/90 mmHg *HI* (04/26/16 3:02 PM) Problem List Condition Effective Dates Status [...] 1Urine from NOT FOUND collected 04/13/16 12:36:00 [id number] added automatically by system based on initiation of At Risk for Activity Intolerance Plan of Ryej6Rawm problem was added by Discern Expert.4Problem added automatically by system based on initiation of At Risk for Infection in Nutrition Planof [id number] added automatically by system based on initiation of Risk for Injury Plan of Oqii2Yeswknf added automatically by system based on initiation of At Risk for Unstable Blood Glucose Planof Dwme2Rijpdki added automatically by system based on initiation of Bowel Dysfunction Plan of Vich5Rdgcb from NOT FOUND collected 09/07/15 17:48:00 [id number] added automatically by system based on initiation of Fluid Volume Imbalance Plan of [id number] added automatically by system based on initiation of Knowledge Deficit Plan of [id number] added automatically by system based on initiation [...] day), # 15 mL, 3 Refill(s), Pharmacy: [facility], 35 units SubCutaneous Bedtime (once a day) [...] BID, # 120 tabs, 6 Refill(s), Pharmacy: [facility], 2 tabs OralBID,x30 days,Instr:Take with meals , start with 1... Start Date: 11/22/15 Stop Date: 06/19/16 Status: OrderedNovoLOG 10 units, SubCutaneous, TIDAC, 0 Refill(s) Start Date: 11/01/15 Status: OrderedNovoLOG 100 units/mL subcutaneous solution 8 units, SubCutaneous, TIDAC, # 10 mL, 0 Refill(s), Pharmacy: [id number], 8 units SubCutaneous TIDAC Start Date: 04/24/16 Status: OrderedReglan 10 mg oral tablet 10 mg 1 tabs, Oral, QID, # 120 tabs, 0 Refill(s), Pharmacy: [facility], 1 tabs Oral QID Start Date: 11/01/15 Status: Orderedsertraline 100 mg oral tablet See Instructions, TAKE TWO TABLETS BY MOUTH ONCE DAILY, # 60 tabs, 2 Refill(s), eRx: [id number], TAKE TWO TABLETS BY MOUTH ONCE DAILY Start Date: 02/28/16 Status: OrderedtraMADol 50 mg oral tablet 50 mg 1 tabs, Oral, q12hr, as needed for pain, X 3 days, # 6 tabs, 0 Refill(s) Start Date: 04/25/16 Stop Date: 04/28/16 Status: Ordered Results Hematology Most recent to oldest [Reference Range]: 1 WBC [4.8-10.8 10*3/uL] 7.9 10*3/uL (04/26/16 3:57 PM) RBC [4.00-5.20] 4.56 (04/26/16 3:57 PM) Hgb [12.0-16.0 gm/dL] 12.6 gm/dL (04/26/16 3:57 PM) Hct [37.0-47.0 %] 37.6 % (04/26/16 3:57 PM) MCV [82.0-99.0 fL] 82.5 fL (04/26/16 3:57 PM) MCH [27.0-32.0 pg] 27.6 pg (04/26/16 3:57 PM) MCHC [32.0-36.0 gm/dL] 33.5 gm/dL (04/26/16 3:57 PM) RDW [11.5-14.5 %] 14.9 % *HI* (04/26/16 3:57 PM) Platelet [150-400 10*3/uL] 204 10*3/uL (04/26/16 3:57 PM) MPV [8.8-14.8 fL] 10.5 fL (04/26/16 3:57 PM) Chemistry Most recent to oldest [Reference Range]: 1 Sodium Lvl [135-144 mEq/L] 137 mEq/L (04/26/16 3:57 PM) Potassium Lvl [3.5-5.2 mEq/L] 5.3 mEq/L *HI* (04/26/16 3:57 PM) Chloride [99-111 mEq/L] 108 mEq/L (04/26/16 3:57 PM) CO2 [22-31 mEq/L] 21 mEq/L *LOW* (04/26/16 3:57 PM) AGAP [3-20] 8 (04/26/16 3:57 PM) BUN [10-20 mg/dL] 29 mg/dL *HI* (04/26/16 3:57 PM) Glucose Lvl [70-99 mg/dL] 251 mg/dL *HI* (04/26/16 3:57 PM) Creatinine Lvl [0.57-1.11 mg/dL] 1.34 mg/dL *HI* (04/26/16 3:57 PM) eGFR [>60 mL/min] 39 mL/min 1 *ABN* (04/26/16 3:57 PM) Calcium Lvl [8.9-10.5 mg/dL] 9.7 mg/dL (04/26/16 3:57 PM) Albumin Lvl [3.4-4.8 gm/dL] 4.4 gm/dL (04/26/16 3:57 PM) Phosphorus [2.3-4.7 mg/dL] 3.2 mg/dL (04/26/16 3:57 PM) Hgb A1c [4.1-5.6 %] 7.7 % *HI* (04/26/16 3:57 PM) eAvg Glucose 174.3 mg/dL (04/26/16 3:57 PM) 1Result Comment: Multiply eGFR results by 1.21 for race. Immunizations Vaccine Date Refusal Reason influenza virus vaccine, inactivated1 05/24/15 influenza virus vaccine, inactivated 06/14/14 pneumococcal 23-polyvalent vaccine2 01/28/14 1Early/Late Reason: Other : DID NOT CROSS [id number]/Late Reason: Other : STATUS Procedures Procedure Date Related Diagnosis Body Site Open Reduction Internal Fixation Ankle (Left)1 11/01/14 Adrenalectomy Appendectomy Cholecystectomy Hysterectomy Provision of stents or bite blocks Total knee arthroplasty 1auto-populated from documented surgical case Social History Social History Type Response Smoking Status Never smoker Assessment and Plan Extracted from: Title: Ambulatory Patient Education Author: Josh Canas DO Date: 04/26/16 Family [facility] Insulin Treatment for Diabetes Diabetes is a disease that does not go away (chronic). It occurs when the body does not properly use the sugar (glucose) that is released from food after it is digested. Glucose levels are controlled by a hormone called insulin, which is made by your pancreas. Depending on the type of diabetes you have, either of the following will apply: The pancreas does not make any insulin (type 1 diabetes). The pancreas makes too little insulin, and the body cannot respond normally to the insulin that is made (type 2 diabetes). Without insulin, can occur. However, with the addition of insulin, blood sugar monitoring, and treatment, someone with diabetes can live a full and productive life. This document will discuss the role of insulin in your treatment and provide information about its use. HOW IS INSULIN GIVEN? Insulin is a medicine that can only be given by injection. Taking it by mouth makes it inactive because of the acid in your stomach. Insulin is injected under the skin by a syringe and needle, an insuli n pen, a pump, or a jet injector. Your dose will be determined by your health care provider based on your individual needs. You will also be given guidance on which method of giving insulin is right for you. Remember that if you give insulin with a needle and syringe, you must do so using only a special insulin syringe made for this purpose. WHERE ON THE BODY SHOULD INSULIN BE INJECTED? Insulin is injected into the fatty layer of tissue just under your skin. Good places to inject insulin include the upper arm, the front and outer area of the thigh, the hips, and the abdomen. Giving you r insulin in the abdomen is preferred because this provides the most rapid and consistent absorption. Avoid the area 2 inches (5 cm) around the navel and avoid injecting into areas on your body with sca r tissue. In addition, it is important to rotate your injection sites with every shot to prevent irritation and improve absorption. WHAT ARE THE DIFFERENT TYPES OF INSULIN? If you have type 1 diabetes, you must take insulin to stay alive. Your body does not produce it. If you have type 2 diabetes, you might require insulin in addition to, or instead of, other medicines. In either case, proper use of insulin is critical to control your diabetes. There are a number of different types of insulin. Usually, you will give yourself injections, though others can be trained to give them to you. Some people have an insulin pump that delivers insulin con tinuously through a tube (cannula) that is placed under the skin. Using insulin requires that you check your blood sugar several times a day. The exact number of times and time of day to check will vary depending on your type of diabetes, your type of insulin, and [place] atment goals. Your health care provider will direct you. Generally, different insulins have different properties. The following is a general guide. Specifics will vary by product, and new products are introduced periodically. Rapid-acting insulin starts working quickly (in as little as 5 minutes) and wears off in 4 to 6 hours (sometimes longer). This type of insulin works well when taken just before a meal to bring your blood sugar quickly back to normal. Short-acting insulin starts working in about 30 minutes and can last 6 to 10 hours. This type of insulin should be taken about 30 minutes before you start eating a meal. Intermediate-acting insulin starts working in 1-2 hours and wears off after about 10 to 18 hours. This insulin will lower your blood sugar for a longer period of time, but it will not be as effec tive in lowering your blood sugar right after a meal. Long-acting insulin mimics the small amount of insulin that your pancreas usually produces throughout the day. You need to have some insulin present at all times. It is crucial to the metabolism of brain cells and other cells. Long-acting insulin is meant to be used either once or twice a day. It is usually used in combination with other types of insulin, or in combination with other diabetes medicines. Discuss the type of insulin you are taking with your health care provider or pharmacist. You will then be aware of when the insulin can be expected to peak and when it will wear off. This is important t o know so you can plan for meal times and periods of exercise. Your health care provider will usually have a strategy in mind when treating you with insulin. This will vary with your type of diabetes, your diabetes treatment goals, and your health history. It is im portant that you understand this strategy so you can be an active partner in treating your diabetes. Here are some terms you might hear: Basal insulin. This refers to the small amount of insulin that needs to be present in your blood at all times. Sometimes oral medicines will be enough. For other people, and especially for people with type 1 diabetes, insulin is needed. Usually, intermediate-acting or long- acting insulin is used once or twice a day to accomplish this. Prandial (meal-related) insulin. Your blood sugar will rise rapidly after a meal. Rapid-acting or short-acting insulin can be used right before the meal to bring your blood sugar back to normal q uickly. You might be instructed to adjust the amount of insulin depending on how much carbohydrate (starch) is in your meal. Corrective insulin. You might be instructed to check your blood sugar at certain times of the day. You then might use a small amount of rapid-acting or short-acting insulin to bring the blood sugar down to normal if it is elevated. Tight control (also called intensive therapy). Tight control means keeping your blood sugar as close to your target as possible and keeping it from going too high after meals. People with tight c ontrol of their diabetes are shown to have fewer long-term problems from their diabetes. Glycohemoglobin (also called glyco, glycosylated hemoglobin, hemoglobin A1c, or A1c) level. This measures how well your blood sugar has been controlled during the past 1 to 3 months. It helps you r health care provider see how effective your treatment is and decide if any changes are needed. Your health care provider will discuss your target glycohemoglobin level with you. Insulin treatment requires your careful attention. While you are being treated with insulin, you should check your blood glucose at least two times each day. Treatment plans will be different for differ ent people. Some people do well with a simple program. Others require more complicated programs, with multiple insulin injections daily. You will work with your health care provider to develop the best program for you. Regardless of your insulin treatment plan, you must also do your best on weight control, diet and food choices, exercise, blood pressure control, cholesterol control, and stress levels. WHAT ARE THE SIDE EFFECTS OF INSULIN? Although insulin treatment is important, it does have some side effects, such as: Insulin can cause your blood sugar to go too low (hypoglycemia). Weight gain can occur. Improper injection technique can cause hypoglycemia, blood sugar to go too high (hyperglycemia), skin injury or irritation, or other problems. You must learn to inject insulin properly. This information is not intended to replace advice given to you by your health care provider. Make sure you discuss any questions you have with your health care provider. Document Released: 10/31/2009 Document Revised: 2015 Document Reviewed: 01/16/2014 Exit[employer] Patient Information 2016 [employer], [employer]. No follow up information was provided.
--- OUTSIDE RECORDS SUMMARY | 2017-10-25 21:15 | External Medical Summary | Referral Summary ---
:1945 Author Organization [facility] Address [address] [place] [address] Care Team Providers Name Role Phone Josh Canas Primary Care Physician Encounter VC Date(s): 05/24/15 - 05/24/15 [facility] [address] [place] [address] [place] Discharge Diagnosis: Anxiety Discharge Diagnosis: Diabetes mellitus type 2, uncontrolled, with complications Discharge Diagnosis: Chronic back pain Discharge Diagnosis: Hypertension Discharge Diagnosis: H/O osteopenia Discharge Diagnosis: Acute kidney injury Discharge Diagnosis: Insomnia Discharge Diagnosis: Depression Discharge Disposition: 01-Home or Self Care Attending Physician: Karyn Ngo MD Admitting Physician: Josh Canas DO Vital Signs Most recent to oldest [Reference Range]: 1 Temperature Oral [35.8-37.3 degC] 36.5 degC (05/24/15 9:51 AM) Peripheral Pulse Rate [60-100 bpm] 76 bpm (05/24/15 9:51 AM) Respiratory Rate [14-20 br/min] 20 br/min (05/24/15 9:51 AM) Blood Pressure [90-140/60-90 mmHg] 138/78 mmHg (05/24/15 9:51 AM) Problem List Condition Effective Dates Status Health Status Informant Acute pain(Confirmed) Active Anxiety(Confirmed) Active At risk for activity Active intolerance(Confirmed)1 At risk for infection(Confirmed)2 Active At risk for injury(Confirmed)3 Active At risk for unstable blood glucose Active level(Confirmed)4 At risk of pressure sore(Confirmed) Active Chronic back pain(Confirmed) Active Back pain, chronic(Confirmed) Active Coronary disease(Confirmed) < 5/24/15 Resolved Diabetes(Confirmed) < 01/27/14 Resolved patient H/O osteopenia(Confirmed) Active Heart disease(Confirmed) Active patient Hypercholesteremia(Confirmed) Active patient Hypertension(Confirmed) Active patient Acute kidney injury(Confirmed) Active Insomnia(Confirmed) Active Knowledge deficit(Confirmed)5 Active LBP (low back pain)(Confirmed) Active Depression with anxiety(Confirmed) Active Chronic insomnia(Confirmed) Active Depression(Confirmed) Active Tissue perfusion Active alteration(Confirmed)6 Diabetes mellitus type 2, Active uncontrolled, with complications(Confirmed) 1Problem added automatically by system based on initiation of At Risk for Activity Intolerance Plan of Uyuh5Mxnwrzl added automatically by system based on initiation of At Risk for Infection in Nutrition Planof Micx2Emlabns added automatically by system based on initiation of Risk for Injury Plan of [id number] added automatically by system based on initiation of At Risk for Unstable Blood Glucose Planof Etfc8Apdhgin added automatically by system based on initiation of Knowledge Deficit Plan of Hbpa1Pjlfvvc added automatically by system based on initiation of Tissue Perfusion Cerebral Plan of Care Allergies, Adverse Reactions, Alerts Substance Reaction Severity Status Macrodantin Convulsion Severe Active penicillin Hives Medium Active Medications aspirin 81 mg oral tablet 1 tabs, Oral, Daily, # 30 tabs, 0 Refill(s), other reason (Rx) Start Date: 06/14/14 Status: Orderedatorvastatin 40 mg oral tablet 1 tabs, Oral, Bedtime (once a day), # 30 tabs, 11 Refill(s), Pharmacy: [id number], 1 tabs Oral Bedtime (once a day) Start Date: 07/28/14 Status: OrderedhydrOXYzine hydrochloride 50 mg oral tablet 50 mg 1 tabs, Oral, QID, as needed for anxiety, # 40 tabs, 1 Refill(s), called to pharmacy (Rx), 1 tabs Oral QID,PRN:as needed for anxiety Start Date: 05/22/15 Status: OrderedLevemir 100 units/mL subcutaneous solution 20 units, SubCutaneous, 0 Refill(s) Start Date: 05/10/15 Status: Orderedlisinopril 2.5 mg oral tablet 2.5 mg 1 tabs, Oral, Daily, # 30 tabs, 0 Refill(s), Pharmacy: [id number] Start Date: 05/10/15 Status: OrderedLunesta 1 mg oral tablet 1 mg 1 tabs, Oral, Bedtime (once a day), as needed for insomnia, # 30 tabs, 5 Refill(s) Start Date: 01/25/15 Status: OrderedmetFORMIN 1000 mg oral tablet 1,000 mg 1 tabs, Oral, BID, # 60 tabs, 0 Refill(s), Pharmacy: [facility], 1 tabs Oral BID Start Date: 02/28/15 Status: OrderedMetoprolol Tartrate 25 mg, Oral, BID, 0 Refill(s) Start Date: 01/08/15 Status: OrderedNovoLOG 100 units/mL subcutaneous solution 6 units, SubCutaneous, TIDAC, # 15 mL, 3 Refill(s), called to pharmacy (Rx) Start Date: 04/10/15 Status: OrderedReglan 10 mg oral tablet 10 mg, Oral, Daily, # 30 tabs, 3 Refill(s), Pharmacy: [facility], 10 mg Oral Daily Start Date: 03/22/15 Status: OrderedtraZODone 50 mg oral tablet 50 mg 1 tabs, Oral, Bedtime (once a day), # 30 tabs, 0 Refill(s), Pharmacy: [facility], 1 tabs Oral Bedtime (once a day) Start Date: 05/10/15 Status: OrderedVoltaren 1% topical gel 1 deric, Topical, QID, # 100 g, 0 Refill(s), called to pharmacy (Rx) Start Date: 01/13/15 Status: OrderedSixto (DME) DME Item FWW/Dx: L nelly ankle fracture S/P ORIF/ Duration: 20 weeks/ H: 172.5 cm W:68 kg, See Instructions, # 1 Each, 0 Refill(s), Supply Start Date: 11/03/14 Status: OrderedWellbutrin XL 150 mg/24 hours oral tablet, extended release 150 mg 1 tabs, Oral, q24hr, # 30 tabs, 0 Refill(s), Pharmacy: [facility], 1 tabs Oral q24hr Start Date: 05/10/15 Status: OrderedZoloft 100 mg oral tablet 200 mg 2 tabs, Oral, Daily, # 60 tabs, 0 Refill(s), Pharmacy: [id number], 2 tabs Oral Daily,x30 days Start Date: 04/20/15 Stop Date: 05/20/15 Status: Ordered Results No data available for this section Immunizations Vaccine Date Refusal Reason influenza virus vaccine, inactivated 05/24/15 influenza virus vaccine, inactivated 06/14/14 pneumococcal 23-polyvalent vaccine1 01/28/14 1Early/Late Reason: Other : STATUS Procedures Procedure Date Related Diagnosis Body Site Open Reduction Internal Fixation Ankle (Left)1 11/01/14 Adrenalectomy Appendectomy Cholecystectomy Hysterectomy Total knee arthroplasty 1auto-populated from documented surgical case Social History Social History Type Response Smoking Status Never smoker Assessment and Plan No data available for this section
--- OUTSIDE RECORDS SUMMARY | 2017-10-25 21:15 | External Medical Summary | Referral Summary ---
:1945 Author Organization Via [facility] Address [address] [place] [address] Care Team Providers Name Role Phone Josh Canas Primary Care Physician Encounter VC Date(s): 11/19/16 - 11/19/16 [facility] [address], [place] [address] Discharge Diagnosis: Lumbar strain Discharge Diagnosis: Chronic migraine Discharge Disposition: 01-Home or Self Care Attending Physician: Beto Townsend DO Admitting Physician: Beto Townsend DO Referring Physician: No PCP, Pt States Vital Signs Most recent to oldest [Reference Range]: 1 Temperature Oral [35.8-37.3 degC] 36.8 degC (11/19/16 6:18 PM) Peripheral Pulse Rate [60-100 bpm] 69 bpm (11/19/16 9:29 PM) Respiratory Rate [14-20 br/min] 14 br/min (11/19/16 9:29 PM) Blood Pressure [90-140/60-90 mmHg] 156/79 mmHg *HI* (11/19/16 9:29 PM) SpO2 94 % (11/19/16 9:29 PM) Problem List Condition Effective Dates Status [...] deficit(Confirmed)10 Active LBP (low back pain)(Confirmed) Active Lumbar strain(Confirmed) Active Chronic migraine(Confirmed) Active Depression with anxiety(Confirmed) Active Chronic insomnia(Confirmed) Active Depression(Confirmed) Active Tissue perfusion Active alteration(Confirmed)11 Diabetes mellitus, insulin dependent Active (IDDM), uncontrolled(Confirmed) Diabetes mellitus type 2, Resolved uncontrolled, with complications(Confirmed) 1Urine from NOT FOUND collected 04/13/16 12:36:00 [id number] added automatically by system based on initiation of At Risk for Activity Intolerance Plan of Kqzu8Fako problem was added by Discern Expert.4Problem added automatically by system based on initiation of At Risk for Infection in Nutrition Planof Ptku0Flvdzza added automatically by system based on initiation of Risk for Injury Plan of Zwgp8Nrxvrgw added automatically by system based on initiation of At Risk for Unstable Blood Glucose Planof Svif5Gsqlppa added automatically by system based on initiation of Bowel Dysfunction Plan of Rzog0Gxfnr from NOT FOUND collected 09/07/15 17:48:00 [id number] added automatically by system based on initiation of Fluid Volume Imbalance Plan of Mfzb54Fcxymza added automatically by system based on initiation of Knowledge Deficit Plan of Thng15Dwycymr added automatically by system based on initiation [...] other reason (Rx) Start Date: 06/14/14 Status: Orderedcyclobenzaprine 10 mg oral tablet 10 mg 1 tabs, Oral, TID, as needed for spasm, # 30 tabs, 0 Refill(s) Start Date: 11/19/16 Stop Date: 11/20/16 Status: OrderedGlucometer (DME) DME Item Glucometer (1) Lancets ( 1 box) Test Strips ( 1 box) 6 refills each on Test Strips , Lancets INSURANCE WILL COVER ON EACH Test FBS, 2 Hours after each Meal Daily Diag:E11.65 Length: 99months HgbA1C: 9.1 11/01/2015, See Instructions,... Start Date: 11/22/15 Status: OrderedKeflex 500 mg oral capsule 500 mg 1 caps, Oral, q8hr, # 15 caps, 0 Refill(s), Pharmacy: [facility] Start Date: 10/23/16 Status: OrderedLantus Solostar Pen 100 units/mL subcutaneous solution 30 units, SubCutaneous, Daily, # 15 mL, 0 Refill(s) Start Date: 09/13/16 Status: Orderedlisinopril 10 mg oral tablet 10 mg 1 tabs, Oral, Daily, 0 Refill(s) Start Date: 01/03/16 Status: OrderedNovoLOG 100 units/mL subcutaneous solution See Instructions, INJECT 8 UNITS SUBCUTANEOUSLY THREE TIMES DAILY BEFORE MEAL(S) , # 10 unknown unit,eRx: [facility] Start Date: 07/30/16 Status: OrderedPercocet 7.5/325 oral tablet 1 tabs, Oral, q4hr, as needed for pain, # 10 tabs, 0 Refill(s) Start Date: 11/19/16 Stop Date: 11/20/16 Status: Orderedsertraline 100 mg oral tablet 200 mg 2 tabs, Oral, Daily, # 60 tabs, 3 Refill(s), called to pharmacy (Rx) Start Date: 10/02/16 Status: OrderedZofran ODT 4 mg oral tablet, disintegrating 4 mg 1 tabs, Oral, q4hr, Nausea or Vomiting | as needed for nausea/vomiting, # 9 tabs, 0 Refill(s) Start Date: 10/26/16 Stop Date: 10/29/16 Status: Ordered Results Hematology Most recent to oldest [Reference Range]: 1 WBC [4.8-10.8 10*3/uL] 9.3 10*3/uL (11/19/16 8:24 PM) RBC [4.00-5.20] 4.39 (11/19/16 8:24 PM) Hgb [12.0-16.0 gm/dL] 12.4 gm/dL (11/19/16 8:24 PM) Hct [37.0-47.0 %] 37.7 % (11/19/16 8:24 PM) MCV [82.0-99.0 fL] 85.9 fL (11/19/16 8:24 PM) MCH [27.0-32.0 pg] 28.2 pg (11/19/16 8:24 PM) MCHC [32.0-36.0 gm/dL] 32.9 gm/dL (11/19/16 8:24 PM) RDW [11.5-14.5 %] 13.9 % (11/19/16 8:24 PM) Platelet [150-400 10*3/uL] 169 10*3/uL (11/19/16 8:24 PM) MPV [9.4-12.4 fL] 10.9 fL (11/19/16 8:24 PM) Immature Granulocytes [0.0-1.0 %] 0.2 % (11/19/16 8:24 PM) Neutrophils [51-75 %] 62 % (11/19/16 8:24 PM) Lymphocytes [20-46 %] 29 % (11/19/16 8:24 PM) Monocytes [4-11 %] 6 % (11/19/16 8:24 PM) Eosinophils [0-4 %] 2 % (11/19/16 8:24 PM) Basophils [0-2 %] 0 % (11/19/16 8:24 PM) Neutro Absolute [1.90-7.00] 5.79 (11/19/16 8:24 PM) Lymph Absolute [0.80-3.30] 2.72 (11/19/16 8:24 PM) Kidder Absolute [0.30-1.00] 0.58 (11/19/16 8:24 PM) Eos Absolute [0.00-0.50] 0.17 (11/19/16 8:24 PM) Baso Absolute [0.00-0.20] 0.02 (11/19/16 8:24 PM) Chemistry Most recent to oldest [Reference Range]: 1 Sodium Lvl [136-144 mEq/L] 138 mEq/L (11/19/16 8:24 PM) Potassium Lvl [3.6-5.1 mEq/L] 5.0 mEq/L 1 (11/19/16 8:24 PM) Chloride [99-109 mEq/L] 108 mEq/L (11/19/16 8:24 PM) CO2 [22-32 mEq/L] 20 mEq/L *LOW* (11/19/16 8:24 PM) AGAP [3-20] 10 (11/19/16 8:24 PM) BUN [4-20 mg/dL] 25 mg/dL *HI* (11/19/16 8:24 PM) Glucose Lvl [70-100 mg/dL] 80 mg/dL (11/19/16 8:24 PM) Creatinine Lvl [0.44-1.03 mg/dL] 1.31 mg/dL *HI* (11/19/16 8:24 PM) eGFR [>60] 40 2 *ABN* (11/19/16 8:24 PM) Calcium Lvl [8.6-10.0 mg/dL] 8.9 mg/dL (11/19/16 8:24 PM) Albumin Lvl [3.5-4.8 gm/dL] 3.6 gm/dL (11/19/16 8:24 PM) Total Protein [6.1-7.9 gm/dL] 5.7 gm/dL *LOW* (11/19/16 8:24 PM) Globulin [1.9-4.3 gm/dL] 2.1 gm/dL (11/19/16 8:24 PM) ALT [14-54 U/L] 46 U/L (11/19/16 8:24 PM) AST [15-41 U/L] 49 U/L *HI* (11/19/16 8:24 PM) Alk Phos [26-104 U/L] 66 U/L (11/19/16 8:24 PM) Bili Total [0.2-1.2 mg/dL] 1.5 mg/dL 3 *HI* (11/19/16 8:24 PM) 1Result Comment: Hemolyzed specimen. The following tests may be affected: ALT, AST, Ammonia, Iron, Potassium, LDH, Amylase, CPK, and Total Bilirubin.2Result Comment : Multiply eGFR results by 1.21 for race.3Result Comment: Naproxen, specifically the metabolite O-desmethylnaproxen, may cause spurious elevation in Total Bilirubin levels. Immunizations Given and Recorded Vaccine Date Status Refusal Reason influenza virus vaccine, inactivated 05/09/16 Given influenza virus vaccine, inactivated1 05/24/15 Given influenza virus vaccine, inactivated2 05/24/15 Given influenza virus vaccine, inactivated 06/14/14 Given pneumococcal 23-polyvalent vaccine3 01/28/14 Given 1Early/Late Reason: Other : DID NOT CROSS [id number] Comment: did not cross [id number]/Late Reason: Other : STATUS Procedures Procedure Date Related Diagnosis Body Site Open Reduction Internal Fixation Ankle (Left)1 11/01/14 Adrenalectomy Appendectomy Cholecystectomy Hysterectomy Provision of stents or bite blocks Total knee arthroplasty 1auto-populated from documented surgical case Social History Social History Type Response Smoking Status Never smoker Assessment and Plan No data available for this section"
--- OUTSIDE RECORDS SUMMARY | 2017-10-25 21:15 | External Medical Summary | Referral Summary ---
:1945 Author Organization [facility] Address [address] [place] [address] Care Team Providers Name Role Phone Josh Canas Primary Care Physician Encounter VC Date(s): 12/23/14 - 12/23/14 [facility] [address], [place] [address] Final: ASYMPTOMATIC POSTMENOPAUSAL STATUS (AGE-RELATED) (NATURAL) Final: DISORDER OF BONE AND CARTILAGE, UNSPECIFIED Discharge Disposition: 01-Home or Self Care Attending Physician: Jaymie West MD Vital Signs No data available for this [...] At Risk for Activity Intolerance Plan of Rgjy3Lxtvutv added automatically by system based on initiation of At Risk for Infection in Nutrition Planof Pyro5Glhfnsv added automatically by system based on initiation of Risk for Injury Plan of Hebh8Lmypgkt added automatically by system based on initiation of At Risk for Unstable Blood Glucose Planof Xmhh8Sqauwsv added automatically by system based on initiation of Knowledge Deficit Plan of Cikr6Uvalisj added automatically by system based on initiation [...] day), # 30 tabs, 11 Refill(s), Pharmacy: [facility], 1 tabs Oral Bedtime (once a day) Start Date: 07/28/14 Status: OrderedhydrOXYzine hydrochloride 50 mg oral tablet 50 mg 1 tabs, Oral, QID, as needed for anxiety, # 40 tabs, 1 Refill(s), called to pharmacy (Rx), 1 tabs Oral QID,PRN:as needed for anxiety Start Date: 05/22/15 Status: OrderedLevemir 100 units/mL subcutaneous solution 20 units, SubCutaneous, Bedtime (once a day), call office if having hypoglycemic episodes, # 10 mL, 0 Refill(s), Pharmacy: [facility], 20 units SubCutaneous Bedtime (once a day),Instr:call office if having hypoglycemic episodes Start Date: 06/21/15 Status: Orderedlisinopril 2.5 mg oral tablet 2.5 mg 1 tabs, Oral, Daily, # 30 tabs, 3 Refill(s), Pharmacy: [facility] Start Date: 06/19/15 Status: OrderedLunesta 1 mg oral tablet 1 mg 1 tabs, Oral, Bedtime (once a day), as needed for insomnia, # 30 tabs, 5 Refill(s) Start Date: 01/25/15 Status: OrderedmetFORMIN 1000 mg oral tablet 1,000 mg 1 tabs, Oral, BID, # 60 tabs, 3 Refill(s), Pharmacy: [facility], 1 tabs Oral BID Start Date: 06/05/15 Status: OrderedMetoprolol Tartrate 25 mg, Oral, BID, [...] 30 tabs, 0 Refill(s), Pharmacy: [facility], 1 tabs Oral Bedtime (once a day) Start Date: 05/10/15 Status: OrderedVoltaren 1% topical gel 1 deric, Topical, QID, # 100 g, 0 Refill(s), called to pharmacy (Rx) Start Date: 01/13/15 Status: OrderedWalker (DME) DME Item FWW/Dx: L nelly ankle [...] 1Early/Late Reason: Other : DID NOT CROSS [id number]/Late Reason: Other : STATUS Procedures Procedure Date Related Diagnosis Body Site Open Reduction Internal Fixation Ankle (Left)1 11/01/14 Adrenalectomy Appendectomy Cholecystectomy Hysterectomy Total knee arthroplasty 1auto-populated from documented surgical case Social History Social History Type Response Smoking Status Never smoker Assessment and Plan No data available for this section
--- OUTSIDE RECORDS SUMMARY | 2017-10-25 21:15 | External Medical Summary | Referral Summary ---
:1945 [facility] Address [address] [place] [address] Care Team Providers Name Role Phone Josh Canas Primary Care Physician Encounter VC Date(s): 01/19/16 - 01/19/16 [facility] [address] [place] [address] [place] Discharge Diagnosis: Diabetes mellitus type 2, uncontrolled, with complications Discharge Disposition: 01-Home or Self Care Attending Physician: Jaymie West MD Admitting Physician: Josh Canas DO Vital Signs Most recent to oldest [Reference Range]: 1 Temperature Oral [35.8-37.3 degC] 37.2 degC (01/19/16 10:53 AM) Peripheral Pulse Rate [60-100 bpm] 70 bpm (01/19/16 10:53 AM) Respiratory Rate [14-20 br/min] 16 br/min (01/19/16 10:53 AM) Blood Pressure [90-140/60-90 mmHg] 120/68 mmHg (01/19/16 10:53 AM) Problem List Condition Effective Dates Status [...] At Risk for Activity Intolerance Plan of Polx8Kpie problem was added by Discern Expert.3Problem added automatically by system based on initiation of At Risk for Infection in Nutrition Planof Dqkc9Ewljgfy added automatically by system based on initiation of Risk for Injury Plan of Azjs8Adjxwck added automatically by system based on initiation of At Risk for Unstable Blood Glucose Planof Kvqo1Xncyamo added automatically by system based on initiation of Bowel Dysfunction Plan of Gmdu8Sjgqv from NOT FOUND collected 09/07/15 17:48:00 [id number] added automatically by system based on initiation of Fluid Volume Imbalance Plan of Fvjd1Lzcwqho added automatically by system based on initiation of Knowledge Deficit Plan of Whkk60Xdwaeyh added automatically by system based on initiation [...] day), # 15 mL, 3 Refill(s), Pharmacy: [facility], 35 units SubCutaneous Bedtime (once [...] BID, # 120 tabs, 6 Refill(s), Pharmacy: [facility], 2 tabs OralBID,x30 days,Instr:Take with meals , start with 1... Start Date: 11/22/15 Stop Date: 06/19/16 Status: Orderedmetoprolol tartrate 25 mg oral tablet 25 mg 1 tabs, Oral, BID, # 60 tabs, 0 Refill(s), Pharmacy: [facility] Start Date: 07/16/15 Status: OrderedNovoLOG 10 units, SubCutaneous, TIDAC, 0 Refill(s) Start Date: 11/01/15 Status: OrderedReglan 10 mg oral tablet 10 mg 1 tabs, Oral, QID, # 120 tabs, 0 Refill(s), Pharmacy: [facility], 1 tabs Oral QID Start Date: 11/01/15 Status: OrderedZoloft 100 mg oral tablet 200 mg 2 tabs, Oral, Daily, # 60 tabs, 3 Refill(s), Pharmacy: [facility], 2 tabs Oral Daily,x30 days Start Date: 06/19/15 Stop Date: 10/17/15 Status: Ordered Results No data available for this section Immunizations Vaccine Date Refusal Reason influenza virus vaccine, inactivated1 05/24/15 influenza virus vaccine, inactivated 06/14/14 pneumococcal 23-polyvalent vaccine2 01/28/14 1Early/Late Reason: Other : DID NOT CROSS [id number]/Late Reason: Other : STATUS Procedures Procedure Date Related Diagnosis Body Site Open Reduction Internal Fixation Ankle (Left)1 11/01/14 Adrenalectomy Appendectomy Cholecystectomy Hysterectomy Provision of stents or bite blocks Total knee arthroplasty 1auto-populated from documented surgical case Social History Social History Type Response Smoking Status Never smoker Assessment and Plan No data available for this section
--- OUTSIDE RECORDS SUMMARY | 2017-10-25 21:16 | External Medical Summary | Referral Summary ---
:1945 Author Organization [facility] Address [address] [place] [address] Care Team Providers Name Role Phone Josh Canas Primary Care Physician Encounter VC Date(s): 04/05/15 - 04/05/15 [facility] [address] [place] [address] [place] Discharge Diagnosis: Acute hyponatremia Discharge Diagnosis: Chronic generalized pain Discharge Diagnosis: Diabetes Discharge Diagnosis: Visit for suture removal Discharge Disposition: 01-Home or Self Care Attending Physician: Seth Sawyer MD Admitting Physician: Josh Canas DO Vital Signs Most recent to oldest [Reference Range]: 1 Temperature Oral [35.8-37.3 degC] 38 degC *HI* (04/05/15 2:35 PM) Peripheral Pulse Rate [60-100 bpm] 68 bpm (04/05/15 2:35 PM) Respiratory Rate [14-20 br/min] 16 br/min (04/05/15 2:35 PM) Blood Pressure [90-140/60-90 mmHg] 132/90 mmHg (04/05/15 2:35 PM) Problem List Condition Effective Dates Status [...] 01/08/15 Resolved Diabetes(Confirmed) < 01/27/14 Resolved patient ESBL(Confirmed)7 Active Fluid imbalance(Confirmed)8 Active H/O osteopenia(Confirmed) [...] At Risk for Activity Intolerance Plan of Yeka5Letn problem was added by Discern Expert.3Problem added automatically by system based on initiation of At Risk for Infection in Nutrition Planof Gdqd7Lnggnlr added automatically by system based on initiation of Risk for Injury Plan of Rqtt6Clevwkh added automatically by system based on initiation of At Risk for Unstable Blood Glucose Planof Ccbh2Fzwwpiv added automatically by system based on initiation of Bowel Dysfunction Plan of Hwak3Cmibc from NOT FOUND collected 09/07/15 17:48:00 [id number] added automatically by system based on initiation of Fluid Volume Imbalance Plan of Ewzv5Giqnghj added automatically by system based on initiation of Knowledge Deficit Plan of Pmbl72Dvkukml added automatically by system based on initiation [...] other reason (Rx) Start Date: 06/14/14 Status: OrderedBentyl 10 mg oral capsule 10 mg 1 caps, Oral, QID, Abdominal Cramping, 0 Refill(s) Start Date: 09/14/15 Status: OrderedColace 100 mg oral capsule 100 mg 1 caps, Oral, BID, 0 Refill(s) Start Date: 09/14/15 Status: OrderedHeparin Lock Flush 10 units/mL intravenous solution 10 units 1 mL, IV Push, BID, 0 Refill(s) Start Date: 09/14/15 Status: OrderedhydrOXYzine hydrochloride 50 mg oral tablet 50 mg 1 tabs, Oral, QID, as needed for anxiety, # 40 tabs, 3 Refill(s), Pharmacy : [facility], 1 tabs Oral QID,PRN:as needed for anxiety Start Date: 08/24/15 Status: Orderedketorolac 15 mg/mL injectable solution 15 mg 1 mL, IV Push, q6hr, Other (See Comment), Use for moderate-severe pain (5- 05/27). not to exceed 4 days duration for all dose forms, 0 Refill(s) Start Date: 09/14/15 Status: OrderedLevemir 100 units/mL subcutaneous solution 30 units, SubCutaneous, Bedtime (once a day), # 15 mL, 3 Refill(s), Pharmacy: [facility], 30 units SubCutaneous Bedtime (once a day) Start Date: 07/24/15 Status: Orderedmetoprolol tartrate 25 mg oral tablet 25 mg 1 tabs, Oral, BID, # 60 tabs, 0 Refill(s), Pharmacy: [facility] Start Date: 07/16/15 Status: OrderedMiraLax 17 g 1 packets, Oral, Daily, Constipation, 0 Refill(s) Start Date: 09/14/15 Status: OrderedNovoLOG 100 units/mL subcutaneous solution 10 units, SubCutaneous, TIDAC, # 15 mL, 3 Refill(s), Pharmacy: [facility], 10 units SubCutaneous TIDAC Start Date: 07/24/15 Status: OrderedZoloft 100 mg oral tablet 200 mg 2 tabs, Oral, Daily, # 60 tabs, 3 Refill(s), Pharmacy: [facility], 2 tabs Oral Daily,x30 days Start Date: 06/19/15 Stop Date: 10/17/15 Status: Ordered Results Chemistry Most recent to oldest [Reference Range]: 1 Sodium Lvl [135-144 mEq/L] 135 mEq/L (04/05/15 3:13 PM) Potassium Lvl [3.5-5.2 mEq/L] 4.8 mEq/L (04/05/15 3:13 PM) Chloride [99-111 mEq/L] 102 mEq/L (04/05/15 3:13 PM) CO2 [22-31 mEq/L] 24 mEq/L (04/05/15 3:13 PM) AGAP [3-20] 9 (04/05/15 3:13 PM) BUN [10-20 mg/dL] 25 mg/dL *HI* (04/05/15 3:13 PM) Glucose Lvl [70-99 mg/dL] 263 mg/dL *HI* (04/05/15 3:13 PM) Creatinine Lvl [0.57-1.11 mg/dL] 1.16 mg/dL *HI* (04/05/15 3:13 PM) eGFR [>60 mL/min] 46 mL/min 1 *ABN* (04/05/15 3:13 PM) Calcium Lvl [8.9-10.5 mg/dL] 10.0 mg/dL (04/05/15 3:13 PM) Hgb A1c [4.1-5.6 %] 7.8 % *HI* (04/05/15 3:13 PM) eAvg Glucose 177.2 mg/dL (04/05/15 3:13 PM) 1Result Comment: Multiply eGFR results by 1.21 for race. Immunizations Vaccine Date Refusal Reason influenza virus vaccine, inactivated1 05/24/15 influenza virus vaccine, inactivated 06/14/14 pneumococcal 23-polyvalent vaccine2 01/28/14 1Early/Late Reason: Other : DID NOT CROSS [id number]/Late Reason: Other : STATUS Procedures Procedure Date Related Diagnosis Body Site Open Reduction Internal Fixation Ankle (Left)1 11/01/14 Adrenalectomy Appendectomy Cholecystectomy Hysterectomy Provision of stents or bite blocks Total knee arthroplasty 1auto-populated from documented surgical case Social History Social History Type Response Smoking Status Never smoker Assessment and Plan No data available for this section
--- OUTSIDE RECORDS SUMMARY | 2017-10-25 21:16 | External Medical Summary | Referral Summary ---
:1945 Author Organization Via [facility] Address [address] [place] [address] Care Team Providers Name Role Phone Josh Canas Primary Care Physician Encounter VC Date(s): 01/08/15 - 01/12/15 [facility] [address], [place] [address] Final: ACUTE AND SUBACUTE NECROSIS OF LIVER Final: Diabetes mellitus with ketoacidosis, type II or unspecified type, uncontrolled Final: HYPOSMOLALITY AND/OR HYPONATREMIA Final: Acute Kidney Failure, Unspecified Final: CORONARY ATHEROSCLEROSIS OF UNSPECIFIED TYPE OF VESSEL, RINCON OR GRAFT Final: POISONING BY AROMATIC ANALGESICS, NOT ELSEWHERE CLASSIFIED Final: UNSPECIFIED ESSENTIAL HYPERTENSION Final: ANEMIA, UNSPECIFIED Final: DEPRESSIVE DISORDER, NOT ELSEWHERE CLASSIFIED Final: ANXIETY STATE, UNSPECIFIED Final: ACCIDENTAL POISONING BY AROMATIC ANALGESICS, NOT ELSEWHERE CLASSIFIED Final: HOME ACCIDENTS Final: OTHER AND UNSPECIFIED HYPERLIPIDEMIA Discharge Disposition: 01-Home or Self Care Attending Physician: Comfort Davila MD Admitting Physician: Ortega Albarado MD Vital Signs Most recent to oldest [Reference Range]: 1 Temperature Oral [35.8-37.3 degC] 36.9 degC (01/12/15 3:00 PM) Temperature Temporal Artery [36.3-37.8 degC] 36.5 degC (01/10/15 8:00 PM) Apical Heart Rate [60-100 bpm] 89 bpm (01/08/15 4:51 PM) Peripheral Pulse Rate [60-100 bpm] 65 bpm (01/12/15 3:00 PM) Heart Rate Monitored [60-100 bpm] 61 bpm (01/11/15 3:00 AM) Respiratory Rate [14-20 br/min] 16 br/min (01/12/15 3:00 PM) Blood Pressure [90-140/60-90 mmHg] 131/64 mmHg (01/12/15 3:00 PM) Mean Arterial Pressure, Cuff 88 mmHg (01/10/15 9:00 PM) SpO2 96 % (01/12/15 3:00 PM) Problem List Condition Effective Dates Status [...] At Risk for Activity Intolerance Plan of [id number] problem was added by Discern Expert.3Problem added automatically by system based on initiation of At Risk for Infection in Nutrition Planof [id number] added automatically by system based on initiation of Risk for Injury Plan of [id number] added automatically by system based on initiation of At Risk for Unstable Blood Glucose Planof Aers5Ppdtseu added automatically by system based on initiation of Knowledge Deficit Plan of [id number] added automatically by system based on initiation [...] # 40 tabs, 0 Refill(s), Pharmacy : [id number], 1 tabs Oral QID,PRN:as needed for anxiety Start Date: 07/24/15 Status: OrderedLevemir 100 units/mL subcutaneous solution 30 units, SubCutaneous, Bedtime (once a day), # 15 mL, 3 Refill(s), Pharmacy: [facility], 30 units SubCutaneous Bedtime (once a day) Start Date: 07/24/15 Status: OrderedmetFORMIN 1000 mg oral tablet 1,000 mg 1 tabs, Oral, BID, # 60 tabs, 3 Refill(s), Pharmacy: [facility], 1 tabs Oral BID Start Date: 06/05/15 Status: Orderedmetoprolol tartrate 25 mg oral tablet 25 mg 1 tabs, Oral, BID, # 60 tabs, 0 Refill(s), Pharmacy: [id number] Start Date: 07/16/15 Status: [...] TIDAC, # 15 mL, 3 Refill(s), Pharmacy: [id number], 10 units SubCutaneous TIDAC Start Date: 07/24/15 Status: OrderedReglan 10 mg oral tablet 10 mg, Oral, Daily, # 30 tabs, 3 Refill(s), Pharmacy: [facility], 10 mg Oral Daily Start Date: 03/22/15 Status: OrderedtraZODone 50 mg oral tablet 50 mg 1 tabs, Oral, Bedtime (once a day), # 30 tabs, 0 Refill(s), Pharmacy: [facility], 1 tabs Oral Bedtime (once a day) Start Date: 05/10/15 Status: OrderedVoltaren 1% topical gel 1 deric, Topical, QID, as needed for pain, # 100 g, 0 Refill(s) Start Date: 07/14/15 Status: OrderedWellbutrin XL 150 mg/24 hours oral tablet, extended release 150 mg 1 tabs, Oral, q24hr, # 30 tabs, 0 Refill(s), Pharmacy: [facility], 1 tabs Oral q24hr Start Date: 05/10/15 Status: OrderedZoloft 100 mg oral tablet 200 mg 2 tabs, Oral, Daily, # 60 tabs, 3 Refill(s), Pharmacy: [id number], 2 tabs Oral Daily,x30 days Start Date: 06/19/15 Stop Date: 10/17/15 Status: Ordered Results Blood Gases Most recent to oldest [Reference Range]: 1 pH [7.35-7.45] 7.35 (01/08/15 7:27 PM) pCO2 Art [35-45 mmHg] 29 mmHg *LOW* (01/08/15 7:27 PM) Arterial PO2 [80-100 mmHg] 91 mmHg (01/08/15 7:27 PM) Bicarbonate [22-26 mEq/L] 16 mEq/L *LOW* (01/08/15 7:27 PM) Base Excess Art [0-2] -9 *LOW* (01/08/15 7:27 PM) pO2 Art [90.0-97.0 %] 96.2 % (01/08/15 7:27 PM) O2 Panel Room Air (01/08/15 7:27 PM) FiO2 Art [0-100] 21 (01/08/15 7:27 PM) Spec Site Radial-L (01/08/15 7:27 PM) Hematology Most recent to oldest [Reference Range]: 1 WBC [4.8-10.8 10*3/uL] 8.3 10*3/uL (01/12/15 4:54 AM) RBC [4.00-5.20 10*6/uL] 3.89 10*6/uL *LOW* (01/12/15 4:54 AM) Hgb [12.0-16.0 gm/dL] 10.6 gm/dL *LOW* (5/28/15 4:54 AM) Hct [37.0-47.0 %] 33.2 % *LOW* (01/12/15 4:54 AM) MCV [82.0-99.0 fL] 85.3 fL (01/12/15 4:54 AM) MCH [27.0-32.0 pg] 27.2 pg (01/12/15 4:54 AM) MCHC [32.0-36.0 gm/dL] 31.9 gm/dL *LOW* (01/12/15 4:54 AM) RDW [11.5-14.5 %] 15.0 % *HI* (01/12/15 4:54 AM) Platelet [150-400 10*3/uL] 215 10*3/uL (01/12/15 4:54 AM) MPV [9.4-12.4 fL] 9.3 fL *LOW* (01/12/15 4:54 AM) Immature Granulocytes [0.0-1.0 %] 0.6 % (01/09/15 4:22 AM) Neutrophils [51-75 %] 78 % *HI* (01/09/15 4:22 AM) Band Man [0-8 %] 4 % (01/08/15 2:06 PM) Lymphocytes [20-46 %] 12 % *LOW* (01/09/15 4:22 AM) Monocytes [4-11 %] 9 % (01/09/15 4:22 AM) Eosinophils [0-4 %] 1 % (01/09/15 4:22 AM) Basophils [0-2 %] 0 % (01/09/15 4:22 AM) Neutro Absolute [1.90-7.00 10*3] 5.62 10*3 (01/09/15 4:22 AM) Lymph Absolute [0.80-3.30 10*3] 0.86 10*3 (01/09/15 4:22 AM) Jay Absolute [0.30-1.00 10*3] 0.65 10*3 (01/09/15 4:22 AM) Eos Absolute [0.00-0.50 10*3] 0.05 10*3 (01/09/15 4:22 AM) Baso Absolute [0.00-0.20 10*3] 0.01 10*3 (01/09/15 4:22 AM) Hyperseg Present *ABN* (01/08/15 2:06 PM) Polychrom Occasional *ABN* (01/08/15 2:06 PM) Ovalocytes Occasional *ABN* (01/08/15 2:06 PM) Nucleated RBC Automated [0 /100 WBC] 0.0 /100 WBC (01/09/15 4:22 AM) Differential Scanned Slide (01/09/15 4:22 AM) Reticulocyte [0.6-2.5 %] 2.0 % (01/10/15 2:49 AM) Coagulation Most recent to oldest [Reference Range]: 1 INR [0.9-1.2] 1.0 (01/11/15 2:40 AM) Chemistry Most recent to oldest [Reference Range]: 1 Sodium Lvl [136-144 mEq/L] 132 mEq/L *LOW* (01/12/15 4:54 AM) Potassium Lvl [3.6-5.1 mEq/L] 4.1 mEq/L (01/12/15 4:54 AM) Chloride [99-109 mEq/L] 98 mEq/L *LOW* (01/12/15 4:54 AM) CO2 [22-32 mEq/L] 27 mEq/L (01/12/15 4:54 AM) AGAP [3-20] 7 (01/12/15 4:54 AM) BUN [4-20 mg/dL] 12 mg/dL (01/12/15 4:54 AM) Glucose Lvl [70-100 mg/dL] 170 mg/dL *HI* (01/12/15 4:54 AM) Creatinine Lvl [0.44-1.03 mg/dL] 0.69 mg/dL (01/12/15 4:54 AM) eGFR [>60] >60 1 (01/12/15 4:54 AM) Calcium Lvl [8.6-10.0 mg/dL] 8.8 mg/dL (01/12/15 4:54 AM) Albumin Lvl [3.5-4.8 gm/dL] 2.6 gm/dL *LOW* (01/12/15 4:54 AM) Total Protein [6.1-7.9 gm/dL] 5.0 gm/dL *LOW* (01/11/15 2:40 AM) Globulin [1.9-4.3 gm/dL] 2.5 gm/dL (01/11/15 2:40 AM) ALT [14-54 U/L] 605 U/L *HI* (01/11/15 2:40 AM) AST [15-41 U/L] 187 U/L *HI* (01/11/15 2:40 AM) Alk Phos [26-104 U/L] 82 U/L (01/11/15 2:40 AM) Bili Total [0.2-1.2 mg/dL] 0.6 mg/dL 2 (01/11/15 2:40 AM) Iron [50-170 mcg/dL] 36 mcg/dL *LOW* (01/10/15 2:49 AM) TIBC [286-569 mcg/dL] 249 mcg/dL *LOW* (01/10/15 2:49 AM) Iron Sat 14 % (01/10/15 2:49 AM) Transferrin [192-382 mg/dL] 167 mg/dL *LOW* (01/10/15 2:49 AM) Ferritin Lvl [11-307 ng/mL] 612 ng/mL *HI* (01/10/15 2:49 AM) Magnesium Lvl [1.8-2.5 mg/dL] 1.7 mg/dL *LOW* (01/12/15 4:54 AM) Phosphorus [2.4-4.7 mg/dL] 2.7 mg/dL 3 (01/12/15 4:54 AM) Troponin [<0.06 ng/mL] <0.05 ng/mL (01/08/15 2:06 PM) Lipase Lvl [8-48 U/L] 27 U/L (01/08/15 2:06 PM) Lactic Acid Lvl [0.5-2.2 mEq/L] 1.3 mEq/L (01/08/15 6:55 PM) Osmolality [275-300 mOsm/kg] 307 mOsm/kg *HI* (01/08/15 2:06 PM) Vitamin B12 Lvl [213-816 pg/mL] 1480 pg/mL *HI* (01/10/15 2:49 AM) Folate Lvl [7.0-31.4 ng/mL] 11.7 ng/mL (01/10/15 2:49 AM) Blood Glucose, Capillary [70-100 mg/dL] 122 mg/dL *HI* (01/12/15 2:19 PM) Blood Glucose, Capillary Out of Range High (01/10/15 9:43 AM) Hep A IgM Negative (01/08/15 6:55 PM) Hep Bs Ag Negative (01/08/15 6:55 PM) Hep C Ab Negative (01/08/15 6:55 PM) Hep B Core IgM Negative (01/08/15 6:55 PM) TSH with Reflex Free T4 [0.35-5.50] 0.66 (01/09/15 4:22 AM) Hgb A1c [4.1-5.6 %] 12.0 % *HI* (01/09/15 4:22 AM) eAvg Glucose 297.7 mg/dL (01/09/15 4:22 AM) 1Result Comment: Multiply eGFR results by 1.21 for race.2Result Comment: Naproxen, specifically the metabolite O-desmethylnaproxen, may cause spurious elevation in Total Bilirubin levels.3Result Comment: High dosages of liposomal Amphotericin B (AmBisome) therapy or other drug preparations that use a liposomal envelope to facilitate drug delivery may cause falsely elevated results for phosphorus.Therapeutic Drug Monitoring Most recent to oldest [Reference Range]: 1 Acetaminophen Lvl [10-30 mcg/mL] <10 mcg/mL (01/08/15 2:06 PM) Salicylate Lvl [0-30 mg/dL] <4 mg/dL (01/08/15 6:55 PM) Toxicology Most recent to oldest [Reference Range]: 1 Ethanol Lvl Not Detected (01/08/15 6:55 PM) Location, Toxicology CCU (01/09/15 12:51 AM) [facility] (01/09/15 12:51 AM) Reason UDS (01/09/15 12:51 AM) SSN NA (01/09/15 12:51 AM) U Amphetamine Scrn Negative (01/09/15 6:19 AM) U Cocaine Scrn Negative (01/09/15 6:19 AM) U Cannab Scrn Negative (01/09/15 6:19 AM) U Opiate Scrn Positive *ABN* (01/09/15 6:19 AM) U PCP Scrn Negative (01/09/15 6:19 AM) U Benzodiazepine Scrn Negative (01/09/15 6:19 AM) U Barbiturate Scrn Negative (01/09/15 6:19 AM) Methadone Lvl Negative (01/09/15 6:19 AM) Tricyclics Negative 1 (01/09/15 6:19 AM) 1Result Comment: Cut-off concentrations: Amphetamines: 1000 ng/mL Cocaine: 300 ng/mL Cannabinoid: 50 ng/mL Opiate: 300 ng/mL Phencyclidine (PCP): 25 ng/mL Benzodiazepine: 200 ng/mL Barbiturate: 200 ng/mL Methadone: 300 ng/mL Tricyclic: 300 ng/mL The urine drug screen assays are qualitative screens. A more specific GC/MS method must be performed to obtain a confirmed analytical result. Unconfirmed screening results must not be used for non-medical purposes(e.g. employment or legal testing)Urinalysis Most recent to oldest [Reference Range]: 1 UA Color Lt Yellow (01/08/15 2:06 PM) UA Appear Clear (01/08/15 2:06 PM) UA pH [5.0-8.0] 6.5 (01/08/15 2:06 PM) UA Leuk Est [Negative] Negative (01/08/15 2:06 PM) UA Nitrite [Negative] Negative (01/08/15 2:06 PM) UA Protein [Negative] Negative (01/08/15 2:06 PM) UA Glucose [Negative] Pos 3+ *ABN* (01/08/15 2:06 PM) UA Ketones [Negative] Pos 3+ *ABN* (01/08/15 2:06 PM) UA Urobilinogen [<1.0] Negative (01/08/15 2:06 PM) UA Bili [Negative] Negative (01/08/15 2:06 PM) UA Blood [Negative] Negative (01/08/15 2:06 PM) UA Spec Grav [1.003-1.030] 1.020 (01/08/15 2:06 PM) Type Clean Catch (01/08/15 2:06 PM) Immunizations Vaccine Date Refusal Reason influenza virus vaccine, inactivated1 05/24/15 influenza virus vaccine, inactivated 06/14/14 pneumococcal 23-polyvalent vaccine2 01/28/14 1Early/Late Reason: Other : DID NOT CROSS [id number] Reason: Other : STATUS Procedures Procedure Date Related Diagnosis Body Site Arterial puncture, withdrawal of blood for 01/08/15 diagnosis Open Reduction Internal Fixation Ankle (Left)1 11/01/14 Adrenalectomy Appendectomy Cholecystectomy Hysterectomy Total knee arthroplasty 1auto-populated from documented surgical case Social History Social History Type Response Smoking Status Never smoker Assessment and Plan No data available for this section
--- OUTSIDE RECORDS SUMMARY | 2017-10-25 21:16 | External Medical Summary | Referral Summary ---
:1945 Author Organization [facility] Address [address] [place] [address] Care Team Providers Name Role Phone Josh Canas Primary Care Physician Encounter VC Date(s): 09/13/16 - 09/13/16 [facility] [address] [place] [address] [place] Discharge Diagnosis: Chronic kidney disease Discharge Diagnosis: Diabetes mellitus, insulin dependent (IDDM), uncontrolled Discharge Disposition: 01-Home or Self Care Attending Physician: Comfort Davila MD Admitting Physician: Josh Canas DO Vital Signs Most recent to oldest [Reference Range]: 1 Temperature Oral [35.8-37.3 degC] 36.5 degC (09/13/16 2:32 PM) Peripheral Pulse Rate [60-100 bpm] 70 bpm (09/13/16 2:32 PM) Respiratory Rate [14-20 br/min] 16 br/min (09/13/16 2:32 PM) Blood Pressure [90-140/60-90 mmHg] 120/78 mmHg (09/13/16 2:32 PM) Problem List Condition Effective Dates Status [...] 1Urine from NOT FOUND collected 04/13/16 12:36:00 [id number] added automatically by system based on initiation of At Risk for Activity Intolerance Plan of Fphz4Getc problem was added by Discern Expert.4Problem added automatically by system based on initiation of At Risk for Infection in Nutrition Planof [id number] added automatically by system based on initiation of Risk for Injury Plan of [id number] added automatically by system based on initiation of At Risk for Unstable Blood Glucose Planof [id number] added automatically by system based on initiation of Bowel Dysfunction Plan of Xbmr8Dtpch from NOT FOUND collected 09/07/15 17:48:00 [id number] added automatically by system based on initiation of Fluid Volume Imbalance Plan of [id number] added automatically by system based on initiation of Knowledge Deficit Plan of [id number] added automatically by system based on initiation [...] 11/01/2015, See Instructions,... Start Date: 11/22/15 Status: OrderedLantus Solostar Pen 100 units/mL subcutaneous solution 30 units, SubCutaneous, Daily, # 15 mL, 0 Refill(s) Start Date: 09/13/16 Status: Orderedlisinopril 10 mg oral tablet 10 mg 1 tabs, Oral, Daily, 0 Refill(s) Start Date: 01/03/16 Status: OrderedNovoLOG 100 units/mL subcutaneous solution See Instructions, INJECT 8 UNITS SUBCUTANEOUSLY THREE TIMES DAILY BEFORE MEAL(S) , # 10 unknown unit,eRx: [facility] Start Date: 07/30/16 Status: Orderedsertraline 100 mg oral tablet See Instructions, TAKE TWO TABLETS BY MOUTH ONCE DAILY, # 60 tabs, 2 Refill(s), eRx: [facility], TAKE TWO TABLETS BY MOUTH ONCE DAILY Start Date: 02/28/16 Status: Ordered Results No data available for this section Immunizations Given and Recorded Vaccine Date Status Refusal Reason influenza virus vaccine, inactivated 05/09/16 Given influenza virus vaccine, inactivated1 05/24/15 Given influenza virus vaccine, inactivated2 05/24/15 Given influenza virus vaccine, inactivated 06/14/14 Given pneumococcal 23-polyvalent vaccine3 01/28/14 Given 1Early/Late Reason: Other : DID NOT CROSS [id number] Comment: did not cross [id number]/Late Reason: Other : STATUS Procedures Procedure Date Related Diagnosis Body Site Open Reduction Internal Fixation Ankle (Left)1 11/01/14 Adrenalectomy Appendectomy Cholecystectomy Hysterectomy Provision of stents or bite blocks Total knee arthroplasty 1auto-populated from documented surgical case Social History Social History Type Response Smoking Status Never smoker Assessment and Plan No data available for this section
--- OUTSIDE RECORDS SUMMARY | 2017-10-25 21:16 | External Medical Summary | Referral Summary ---
:1945 [address] [facility] Address [address] [place] [address] Care Team Providers Name Role Phone Josh Canas Primary Care Physician Encounter VC Date(s): 07/14/15 - 07/16/[address] [facility] [address], [place] [address] Discharge Diagnosis: Hyperkalemia Discharge Diagnosis: Hyperglycemia Discharge Disposition: 01-Home or Self Care Attending Physician: Danna Clifton MD Admitting Physician: Danna Clifton MD Vital Signs Most recent to oldest [Reference Range]: 1 Temperature Oral [35.8-37.3 degC] 36.8 degC (07/16/15 12:00 PM) Peripheral Pulse Rate [60-100 bpm] 62 bpm (07/16/15 12:00 PM) Heart Rate Monitored [60-100 bpm] 54 bpm *LOW* (07/16/15 9:33 AM) Respiratory Rate [14-20 br/min] 16 br/min (07/16/15 12:00 PM) Blood Pressure [90-140/60-90 mmHg] 166/84 mmHg *HI* (07/16/15 12:00 PM) Mean Arterial Pressure, Cuff 107 mmHg (07/14/15 11:30 PM) SpO2 96 % (07/16/15 12:00 PM) Problem List Condition Effective Dates Status [...] At Risk for Activity Intolerance Plan of [id number] problem was added by Discern Expert.3Problem added automatically by system based on initiation of At Risk for Infection in Nutrition Planof [id number] added automatically by system based on initiation of Risk for Injury Plan of Fmmr2Mnzhspd added automatically by system based on initiation of At Risk for Unstable Blood Glucose Planof Dyid7Nogdyme added automatically by system based on initiation of Knowledge Deficit Plan of [id number] added automatically by system based on initiation of Tissue Perfusion Cerebral Plan of Care Allergies, Adverse Reactions, Alerts Substance Reaction Severity Status Macrodantin Convulsion Severe Active penicillin Hives Medium Active Medications aspirin 81 mg oral tablet 1 tabs, Oral, Daily, # 30 tabs, 0 Refill(s), other reason (Rx) Start Date: 06/14/14 Status: OrderedbusPIRone 15 mg, Oral, Daily, as needed, 0 Refill(s) Start Date: 07/15/15 Status: OrderedbusPIRone 15 mg oral tablet 15 mg 1 tabs, Oral, BID, 0 Refill(s) Start Date: 07/15/15 Status: OrderedhydrOXYzine hydrochloride 50 mg oral tablet 50 mg 1 tabs, Oral, QID, as needed for anxiety, # 40 tabs, 1 Refill(s), called to pharmacy (Rx), 1 tabs Oral QID,PRN:as needed for anxiety Start Date: 05/22/15 Status: Orderedibuprofen 400 mg oral tablet 400 mg 1 tabs, Oral, q8hr, Pain Mild (1-3), 0 Refill(s) Start Date: 07/16/15 Status: OrderedLevemir 12 units, SubCutaneous, Bedtime (once a day), 0 Refill(s) Start Date: 07/15/15 Status: OrderedmetFORMIN 1000 mg oral tablet 1,000 mg 1 tabs, Oral, BID, # 60 tabs, 3 Refill(s), Pharmacy: [id number], 1 tabs Oral BID Start Date: 06/05/15 Status: Orderedmetoprolol tartrate 25 mg oral tablet 25 mg 1 tabs, Oral, BID, # 60 tabs, 0 Refill(s), Pharmacy: [id number] Start Date: 07/16/15 Status: OrderedNovoLOG 100 units/mL subcutaneous solution 6 units, SubCutaneous, TIDAC, # 15 mL, 3 Refill(s), called to pharmacy (Rx) Start Date: 04/10/15 Status: OrderedReglan 10 mg oral tablet 10 mg, Oral, Daily, # 30 tabs, 3 Refill(s), Pharmacy: [id number], 10 mg Oral Daily Start Date: 03/22/15 Status: OrderedtraZODone 50 mg oral tablet 50 mg 1 tabs, Oral, Bedtime (once a day), # 30 tabs, 0 Refill(s), Pharmacy: [id number], 1 tabs Oral Bedtime (once a day) Start Date: 05/10/15 Status: OrderedVoltaren 1% topical gel 1 deric, Topical, QID, as needed for pain, # 100 g, 0 Refill(s) Start Date: 07/14/15 Status: OrderedWellbutrin XL 150 mg/24 hours oral tablet, extended release 150 mg 1 tabs, Oral, q24hr, # 30 tabs, 0 Refill(s), Pharmacy: [id number], 1 tabs Oral q24hr Start Date: 05/10/15 Status: OrderedZoloft 100 mg oral tablet 200 mg 2 tabs, Oral, Daily, # 60 tabs, 3 Refill(s), Pharmacy: [id number], 2 tabs Oral Daily,x30 days Start Date: 06/19/15 Stop Date: 10/17/15 Status: Ordered Results Hematology Most recent to oldest [Reference Range]: 1 WBC [4.8-10.8 10*3/uL] 5.0 10*3/uL (07/16/15 4:17 AM) RBC [4.00-5.20] 3.76 *LOW* (07/16/15 4:17 AM) Hgb [12.0-16.0 gm/dL] 10.2 gm/dL *LOW* (07/16/15 4:17 AM) Hct [37.0-47.0 %] 31.8 % *LOW* (07/16/15 4:17 AM) MCV [82.0-99.0 fL] 84.6 fL (07/16/15 4:17 AM) MCH [27.0-32.0 pg] 27.1 pg (07/16/15: AM) MCHC [32.0-36.0 gm/dL] 32.1 gm/dL (07/16/15 4:17 AM) RDW [11.5-14.5 %] 13.5 % (07/16/15 4:17 AM) Platelet [150-400 10*3/uL] 130 10*3/uL *LOW* (07/16/15 4:17 AM) MPV [9.4-12.4 fL] 10.8 fL (07/16/15 4:17 AM) Immature Granulocytes [0.0-1.0 %] 0.0 % (07/16/15 4:17 AM) Neutrophils [51-75 %] 49 % *LOW* (07/16/15 4:17 AM) Lymphocytes [20-46 %] 36 % (07/16/15 4:17 AM) Monocytes [4-11 %] 11 % (07/16/15 4:17 AM) Eosinophils [0-4 %] 4 % (07/16/15 4:17 AM) Basophils [0-2 %] 0 % (07/16/15 4:17 AM) Neutro Absolute [1.90-7.00 10*3] 2.49 10*3 (07/16/15 4:17 AM) Lymph Absolute [0.80-3.30 10*3] 1.80 10*3 (07/16/15 4:17 AM) [place] Absolute [0.30-1.00 10*3] 0.55 10*3 (07/16/15 4:17 AM) Eos Absolute [0.00-0.50 10*3] 0.18 10*3 (07/16/15 4:17 AM) Baso Absolute [0.00-0.20 10*3] 0.02 10*3 (07/16/15 4:17 AM) Coagulation Most recent to oldest [Reference Range]: 1 INR [0.9-1.2] 1.0 (07/15/15 1:46 AM) Chemistry Most recent to oldest [Reference Range]: 1 Sodium Lvl [136-144 mEq/L] 133 mEq/L *LOW* (07/16/15 4:17 AM) Potassium Lvl [3.6-5.1 mEq/L] 4.5 mEq/L (07/16/15 4:17 AM) Chloride [99-109 mEq/L] 103 mEq/L (07/16/15 4:17 AM) CO2 [22-32 mEq/L] 24 mEq/L (07/16/15 4:17 AM) AGAP [3-20] 6 (07/16/15 4:17 AM) BUN [4-20 mg/dL] 16 mg/dL (07/16/15 4:17 AM) Glucose Lvl [70-100 mg/dL] 130 mg/dL *HI* (07/16/15 4:17 AM) Creatinine Lvl [0.44-1.03 mg/dL] 0.87 mg/dL (07/16/15 4:17 AM) eGFR [>60] >60 1 (07/16/15 4:17 AM) Calcium Lvl [8.6-10.0 mg/dL] 8.7 mg/dL (07/16/15 4:17 AM) Albumin Lvl [3.5-4.8 gm/dL] 2.7 gm/dL *LOW* (07/16/15 4:17 AM) Total Protein [6.1-7.9 gm/dL] 5.1 gm/dL *LOW* (07/16/15 4:17 AM) Globulin [1.9-4.3 gm/dL] 2.4 gm/dL (07/16/15 4:17 AM) ALT [14-54 U/L] 65 U/L *HI* (07/16/15 4:17 AM) AST [15-41 U/L] 39 U/L (07/16/15 4:17 AM) Alk Phos [26-104 U/L] 80 U/L (07/16/15 4:17 AM) Bili Total [0.2-1.2 mg/dL] 0.8 mg/dL 2 (07/16/15 4:17 AM) Bili Direct [0.0-0.2 mg/dL] 0.1 mg/dL (07/15/15 12:34 AM) Bili Indirect [0.0-1.0 mg/dL] 0.7 mg/dL (07/15/15 12:34 AM) Magnesium Lvl [1.8-2.5 mg/dL] 1.2 mg/dL *LOW* (07/16/15 4:17 AM) Troponin [<0.06 ng/mL] <0.05 ng/mL (07/14/15 7:34 PM) Ammonia [9-35 mcmol/L] 26 mcmol/L (07/15/15 12:33 AM) Osmolality [275-300 mOsm/kg] 297 mOsm/kg (07/15/15 12:34 AM) Sodium Venous [136-144 mEq/L] 134 mEq/L *LOW* (07/14/15 11:08 PM) Potassium Venous [3.6-5.1 mEq/L] 5.6 mEq/L 3 *HI* (07/14/15 11:08 PM) Calcium Ionized Venous [1.19-1.41 mmol/L] 1.24 mmol/L (07/14/15 11:08 PM) Total CO2 Venous [25-29 mEq/L] 22 mEq/L *LOW* (07/14/15 11:08 PM) HGB Venous NPT [12.0-16.0 gm/dL] 12.2 gm/dL (07/14/15 11:08 PM) HCT Venous [37.0-47.0 %] 36.0 % *LOW* (07/14/15 11:08 PM) Glucose Venous [70-100 mg/dL] 304 mg/dL *HI* (07/14/15 11:08 PM) BUN Venous [4-20] 23 *HI* (07/14/15 11:08 PM) Creatinine Venous [0.4-1.0 mg/dL] 0.9 mg/dL (07/14/15 11:08 PM) Venous CL [99-109 mEq/L] 102 mEq/L (07/14/15 11:08 PM) Anion Gap, Les [3-20] 10 (07/14/15 11:08 PM) Blood Glucose, Capillary [74-106 mg/dL] 233 mg/dL *HI* (07/16/15 12:35 PM) TSH with Reflex Free T4 [0.35-5.50] 2.30 (07/15/15 12:34 AM) Hgb A1c [4.1-5.6 %] 8.8 % *HI* (07/15/15 12:33 AM) eAvg Glucose 205.9 mg/dL (07/15/15 12:33 AM) 1Result Comment: Multiply eGFR results by 1.21 for race.2Result Comment: Naproxen, specifically the metabolite O-desmethylnaproxen, may cause spurious elevation in Total Bilirubin levels.3Result Comment: This test was performed on a whole blood specimen. The presence or absence of hemolysis cannot be assessed. Hemolysis can falsely elevate potassium levels. Normals are for venous specimens only.Therapeutic Drug Monitoring Most recent to oldest [Reference Range]: 1 Acetaminophen Lvl [10-30 ug/mL] <10 ug/mL (07/15/15 12:34 AM) Salicylate Lvl [0-30 mg/dL] <4 mg/dL (07/15/15 12:34 AM) Toxicology Most recent to oldest [Reference Range]: 1 Ethanol Lvl Not Detected (07/15/15 12:34 AM) U Amphetamine Scrn Negative (07/14/15 7:34 PM) U Cocaine Scrn Negative (07/14/15 7:34 PM) U Cannab Scrn Negative (07/14/15 7:34 PM) U Opiate Scrn Positive *ABN* (07/14/15 7:34 PM) U PCP Scrn Negative (07/14/15 7:34 PM) U Benzodiazepine Scrn Negative (07/14/15 7:34 PM) U Barbiturate Scrn Negative (07/14/15 7:34 PM) Methadone Lvl Negative (07/14/15 7:34 PM) Tricyclics Negative 1 (07/14/15 7:34 PM) 1Result Comment: Cut-off concentrations: Amphetamines: 1000 ng/mL [...] [Reference Range]: 1 UA Color Lt Yellow (07/14/15 7:34 PM) UA Appear Clear (07/14/15 7:34 PM) UA pH [5.0-8.0] 7.0 (07/14/15 7:34 PM) UA Leuk Est [Negative] Negative (07/14/15 7:34 PM) UA Nitrite [Negative] Negative (07/14/15 7:34 PM) UA Protein [Negative] Negative (07/14/15 7:34 PM) UA Glucose [Negative] Pos 3+ *ABN* (07/14/15 7:34 PM) UA Ketones [Negative] Negative (07/14/15 7:34 PM) UA Urobilinogen [<1.0] Negative (07/14/15 7:34 PM) UA Bili [Negative] Negative (07/14/15 7:34 PM) UA Blood [Negative] Negative (07/14/15 7:34 PM) UA Spec Grav [1.003-1.030] 1.013 (07/14/15 7:34 PM) Type Clean Catch (07/14/15 7:34 PM) Immunizations Vaccine Date Refusal Reason influenza virus vaccine, inactivated1 05/24/15 influenza virus vaccine, inactivated 06/14/14 pneumococcal 23-polyvalent vaccine2 01/28/14 1Early/Late Reason: Other : DID NOT CROSS [id number] Reason: Other : STATUS Procedures Procedure Date Related Diagnosis Body Site Open Reduction Internal Fixation Ankle (Left)1 3/17/15 Adrenalectomy Appendectomy Cholecystectomy Hysterectomy Total knee arthroplasty 1auto-populated from documented surgical case Social History Social History Type Response Smoking Status Never smoker Assessment and Plan No data available for this section
--- OUTSIDE RECORDS SUMMARY | 2017-10-25 21:16 | External Medical Summary | Referral Summary ---
:1945 Author [facility] Address [address] [place] [address] Care Team Providers Name Role Phone Josh Canas Primary Care Physician Encounter VC Date(s): 01/03/16 - 01/03/16 [facility] [address] [place] [address] [place] Discharge Diagnosis: Diabetes mellitus type 2, uncontrolled, with complications Discharge Disposition: 01-Home or Self Care Attending Physician: Danna Clifton MD Admitting Physician: Josh Canas DO Vital Signs Most recent to oldest [Reference Range]: 1 Temperature Oral [35.8-37.3 degC] 36.6 degC (01/03/16 11:08 AM) Peripheral Pulse Rate [60-100 bpm] 76 bpm (01/03/16 11:08 AM) Respiratory Rate [14-20 br/min] 20 br/min (01/03/16 11:08 AM) Blood Pressure [90-140/60-90 mmHg] 118/78 mmHg (01/03/16 11:08 AM) Problem List Condition Effective Dates Status [...] At Risk for Activity Intolerance Plan of Wzud2Nhag problem was added by Discern Expert.3Problem added automatically by system based on initiation of At Risk for Infection in Nutrition Planof Tdls5Fdowsbm added automatically by system based on initiation of Risk for Injury Plan of Oaeq9Sxpcvoe added automatically by system based on initiation of At Risk for Unstable Blood Glucose Planof Atbd5Saslors added automatically by system based on initiation of Bowel Dysfunction Plan of Xcsm5Ynggs from NOT FOUND collected 09/07/15 17:48:00 HQS2Tvsvnog added automatically by system based on initiation of Fluid Volume Imbalance Plan of Bdxi5Xhnaqgi added automatically by system based on initiation of Knowledge Deficit Plan of Gktw23Eldnscn added automatically by system based on initiation [...] BID, 0 Refill(s) Start Date: 09/14/15 Status: OrderedGlucometer (DME) DME Item Glucometer (1) Lancets ( 1 box) Test Strips ( 1 box) 6 refills each on Test Strips , Lancets INSURANCE WILL COVER ON EACH Test FBS, 2 Hours after each Meal Daily Diag:E11.65 Length: 99months HgbA1C: 9.1 11/01/2015, See Instructions,... Start Date: 11/22/15 Status: OrderedHeparin Lock Flush 10 units/mL intravenous solution 10 units 1 mL, IV Push, BID, 0 Refill(s) Start Date: 09/14/15 Status: OrderedhydrOXYzine hydrochloride 50 mg oral tablet 50 mg 1 tabs, Oral, QID, as needed for anxiety, # 40 tabs, 3 Refill(s), Pharmacy : [facility], 1 tabs Oral QID,PRN:as needed for anxiety Start Date: 08/24/15 Status: Orderedketorolac 15 mg/mL injectable solution 15 mg 1 mL, IV Push, q6hr, Other (See Comment), Use for moderate-severe pain (5- 10/10). not to exceed 4 days duration for all dose forms, 0 Refill(s) Start Date: 09/14/15 Status: OrderedLevemir 100 units/mL subcutaneous solution 30 units, SubCutaneous, Bedtime (once a day), # 15 mL, 3 Refill(s), Pharmacy: [facility], 30 units SubCutaneous Bedtime (once a day) Start Date: 07/24/15 Status: Orderedlisinopril 10 mg oral tablet 10 mg 1 tabs, Oral, Daily, 0 Refill(s) Start Date: 01/03/16 Status: OrderedmetFORMIN 500 mg oral tablet, extended release 1,000 mg 2 tabs, Oral, BID, Take with meals, start with 1 tab BID x 1 week, then 2 tabs qAM and 1tabqPM x1 week, then 2 tabs BID, # 120 tabs, 6 Refill(s), Pharmacy: [facility], 2 tabs OralBID,x30 days,Instr:Take with meals , start with 1... Start Date: 11/22/15 Stop Date: 06/19/16 Status: Orderedmetoprolol tartrate 25 mg oral tablet 25 mg 1 tabs, Oral, BID, # 60 tabs, 0 Refill(s), Pharmacy: [facility] Start Date: 07/16/15 Status: OrderedMiraLax 17 g 1 packets, Oral, Daily, Constipation, 0 Refill(s) Start Date: 09/14/15 Status: OrderedNovoLOG 8 units, SubCutaneous, TIDAC, 0 Refill(s) Start Date: 11/01/15 Status: OrderedReglan 10 mg oral tablet 10 mg 1 tabs, Oral, QID, # 120 tabs, 0 Refill(s), Pharmacy: [facility], 1 tabs Oral QID Start Date: 11/01/15 Status: OrderedZoloft 100 mg oral tablet 200 mg 2 tabs, Oral, Daily, # 60 tabs, 3 Refill(s), Pharmacy: [facility], 2 tabs Oral Daily,x30 days Start Date: 06/19/15 Stop Date: 10/17/15 Status: Ordered Results Chemistry Most recent to oldest [Reference Range]: 1 Sodium Lvl [135-144 mEq/L] 134 mEq/L *LOW* (01/03/16 12:11 PM) Potassium Lvl [3.5-5.2 mEq/L] 4.8 mEq/L (01/03/16 12:11 PM) Chloride [99-111 mEq/L] 105 mEq/L (01/03/16 12:11 PM) CO2 [22-31 mEq/L] 20 mEq/L *LOW* (01/03/16 12:11 PM) AGAP [3-20] 9 (01/03/16 12:11 PM) BUN [10-20 mg/dL] 17 mg/dL (01/03/16 12:11 PM) Glucose Lvl [70-99 mg/dL] 252 mg/dL *HI* (01/03/16 12:11 PM) Creatinine Lvl [0.57-1.11 mg/dL] 0.93 mg/dL (01/03/16 12:11 PM) eGFR [>60 mL/min] 60 mL/min 1 (01/03/16 12:11 PM) Calcium Lvl [8.9-10.5 mg/dL] 9.1 mg/dL (01/03/16 12:11 PM) 1Result Comment: Multiply eGFR results by 1.21 for race. Immunizations Vaccine Date Refusal Reason influenza virus vaccine, inactivated1 05/24/15 influenza virus vaccine, inactivated 06/14/14 pneumococcal 23-polyvalent vaccine2 01/28/14 1Early/Late Reason: Other : DID NOT CROSS [id number]/Late Reason: Other : STATUS Procedures Procedure Date Related Diagnosis Body Site Open Reduction Internal Fixation Ankle (Left)1 11/01/14 Adrenalectomy Appendectomy Cholecystectomy Hysterectomy Provision of stents or bite blocks Total knee arthroplasty 1auto-populated from documented surgical case Social History Social History Type Response Smoking Status Never smoker Assessment and Plan No data available for this section
--- OUTSIDE RECORDS SUMMARY | 2017-10-25 21:16 | External Medical Summary | Referral Summary ---
:1945 Author Organization Via [facility] Address [address] [place] [address] Care Team Providers Name Role Phone Josh Canas Primary Care Physician Encounter VC Date(s): 08/24/15 - 08/24/15 [facility] [address], [place] [address] Discharge Diagnosis: Acute lower UTI Discharge Diagnosis: Chronic tension headache Discharge Disposition: 01-Home or Self Care Attending Physician: Arun Perdomo MD Admitting Physician: Arun Perdomo MD Vital Signs Most recent to oldest [Reference Range]: 1 Temperature Temporal Artery [36.3-37.8 degC] 36.5 degC (08/24/15 4:45 AM) Peripheral Pulse Rate [60-100 bpm] 71 bpm (08/24/15 6:54 AM) Respiratory Rate [14-20 br/min] 18 br/min (08/24/15 4:45 AM) Blood Pressure [90-140/60-90 mmHg] 156/87 mmHg *HI* (08/24/15 6:54 AM) SpO2 98 % (08/24/15 6:54 AM) Problem List Condition Effective Dates Status [...] At Risk for Activity Intolerance Plan of [id number] problem was added by Discern Expert.3Problem added automatically by system based on initiation of At Risk for Infection in Nutrition Planof Hvdt9Jzpfxim added automatically by system based on initiation of Risk for Injury Plan of Kioo2Afornta added automatically by system based on initiation of At Risk for Unstable Blood Glucose Planof Xgln8Gdqkgjz added automatically by system based on initiation of Knowledge Deficit Plan of Qspx4Cusygrz added automatically by system based on initiation of Tissue Perfusion Cerebral Plan of Care Allergies, Adverse Reactions, Alerts Substance Reaction Severity Status Macrodantin Convulsion Severe Active penicillin Hives Medium Active Medications acetaminophen 500 mg oral tablet 500 mg 1 tabs, Oral, q4hr, as needed for pain, X 7 days, # 42 tabs, 0 Refill(s) Start Date: 08/24/15 Stop Date: 08/31/15 Status: Orderedaspirin 81 mg oral tablet 1 tabs, Oral, Daily, # 30 tabs, 0 Refill(s), other reason (Rx) Start Date: 06/14/14 Status: OrderedbusPIRone 15 mg oral tablet 15 mg 1 tabs, Oral, BID, 0 Refill(s) Start Date: 07/15/15 Status: Orderedcefuroxime 250 mg oral tablet 250 mg 1 tabs, Oral, BID, X 7 days, # 14 tabs, 0 Refill(s) Start Date: 08/24/15 Stop Date: 08/31/15 Status: OrderedhydrOXYzine hydrochloride 50 mg oral tablet 50 mg 1 tabs, Oral, QID, as needed for anxiety, # 40 tabs, 3 Refill(s), Pharmacy : [facility], 1 tabs Oral QID,PRN:as needed for anxiety Start Date: 08/24/15 Status: OrderedLevemir 100 units/mL subcutaneous solution 30 units, SubCutaneous, Bedtime (once a day), # 15 mL, 3 Refill(s), Pharmacy: [facility], 30 units SubCutaneous Bedtime (once a day) Start Date: 07/24/15 Status: OrderedmetFORMIN 1000 mg oral tablet 1,000 mg 1 tabs, Oral, BID, # 60 tabs, 3 Refill(s), Pharmacy: [facility], 1 tabs Oral BID Start Date: 06/05/15 Status: Orderedmetoprolol tartrate 25 mg oral tablet 25 mg 1 tabs, Oral, BID, # 60 tabs, 0 Refill(s), Pharmacy: [facility] Start Date: 07/16/15 Status: [...] TIDAC, # 15 mL, 3 Refill(s), Pharmacy: [facility], 10 units SubCutaneous TIDAC Start Date: 07/24/15 Status: OrderedReglan 10 mg oral tablet 10 mg 1 tabs, Oral, QID, Headache, X 7 days, # 28 tabs, 0 Refill(s) Start Date: 08/24/15 Stop Date: 08/31/15 Status: OrderedReglan 10 mg oral tablet 10 mg, Oral, Daily, # 30 tabs, 3 Refill(s), Pharmacy: [facility], 10 mg Oral Daily Start Date: 03/22/15 Status: OrderedtraZODone 50 mg oral tablet 50 mg 1 tabs, Oral, Bedtime (once a day), # 30 tabs, 0 Refill(s), Pharmacy: [facility], 1 tabs Oral Bedtime (once a day) Start Date: 05/10/15 Status: OrderedVoltaren 1% topical gel 1 deric, Topical, QID, as needed for pain, # 100 g, 0 Refill(s) Start Date: 07/14/15 Status: OrderedWellbutrin XL 150 mg/24 hours oral tablet, extended release 150 mg 1 tabs, Oral, q24hr, # 30 tabs, 0 Refill(s), Pharmacy: [facility], 1 tabs Oral q24hr Start Date: 05/10/15 Status: OrderedZoloft 100 mg oral tablet 200 mg 2 tabs, Oral, Daily, # 60 tabs, 3 Refill(s), Pharmacy: [facility], 2 tabs Oral Daily,x30 days Start Date: 06/19/15 Stop Date: 10/17/15 Status: Ordered Results Hematology Most recent to oldest [Reference Range]: 1 WBC [4.8-10.8 10*3/uL] 11.3 10*3/uL *HI* (08/24/15 5:32 AM) RBC [4.00-5.20] 4.79 (08/24/15 5:32 AM) Hgb [12.0-16.0 gm/dL] 12.7 gm/dL (08/24/15 5:32 AM) Hct [37.0-47.0 %] 38.0 % (08/24/15 5:32 AM) MCV [82.0-99.0 fL] 79.3 fL *LOW* (08/24/15 5:32 AM) MCH [27.0-32.0 pg] 26.5 pg *LOW* (08/24/15 5:32 AM) MCHC [32.0-36.0 gm/dL] 33.4 gm/dL (08/24/15 5:32 AM) RDW [11.5-14.5 %] 13.6 % (08/24/15 5:32 AM) Platelet [150-400 10*3/uL] 226 10*3/uL (08/24/15 5:32 AM) MPV [9.4-12.4 fL] 9.9 fL (08/24/15 5:32 AM) Immature Granulocytes [0.0-1.0 %] 0.0 % (08/24/15 5:32 AM) Neutrophils [51-75 %] 65 % (08/24/15 5:32 AM) Lymphocytes [20-46 %] 28 % (08/24/15 5:32 AM) Monocytes [4-11 %] 6 % (08/24/15 5:32 AM) Eosinophils [0-4 %] 1 % (08/24/15 5:32 AM) Basophils [0-2 %] 0 % (08/24/15 5:32 AM) Neutro Absolute [1.90-7.00 10*3] 7.29 10*3 *HI* (08/24/15 5:32 AM) Lymph Absolute [0.80-3.30 10*3] 3.15 10*3 (08/24/15 5:32 AM) [place] Absolute [0.30-1.00 10*3] 0.72 10*3 (08/24/15 5:32 AM) Eos Absolute [0.00-0.50 10*3] 0.11 10*3 (08/24/15 5:32 AM) Baso Absolute [0.00-0.20 10*3] 0.02 10*3 (08/24/15 5:32 AM) Chemistry Most recent to oldest [Reference Range]: 1 Sodium Lvl [136-144 mEq/L] 139 mEq/L (08/24/15 5:32 AM) Potassium Lvl [3.6-5.1 mEq/L] 4.3 mEq/L (08/24/15 5:32 AM) Chloride [99-109 mEq/L] 106 mEq/L (08/24/15 5:32 AM) CO2 [22-32 mEq/L] 21 mEq/L *LOW* (08/24/15 5:32 AM) AGAP [3-20] 12 (08/24/15 5:32 AM) BUN [4-20 mg/dL] 27 mg/dL *HI* (08/24/15 5:32 AM) Glucose Lvl [70-100 mg/dL] 213 mg/dL *HI* (08/24/15 5:32 AM) Creatinine Lvl [0.44-1.03 mg/dL] 1.58 mg/dL *HI* (08/24/15 5:32 AM) eGFR [>60] 32 1 *ABN* (08/24/15 5:32 AM) Calcium Lvl [8.6-10.0 mg/dL] 9.5 mg/dL (08/24/15 5:32 AM) Albumin Lvl [3.5-4.8 gm/dL] 4.2 gm/dL (08/24/15 5:32 AM) Total Protein [6.1-7.9 gm/dL] 6.8 gm/dL (08/24/15 5:32 AM) Globulin [1.9-4.3 gm/dL] 2.6 gm/dL (08/24/15 5:32 AM) ALT [14-54 U/L] 21 U/L (08/24/15 5:32 AM) AST [15-41 U/L] 21 U/L (08/24/15 5:32 AM) Alk Phos [26-104 U/L] 70 U/L (08/24/15 5:32 AM) Bili Total [0.2-1.2 mg/dL] 0.6 mg/dL 2 (08/24/15 5:32 AM) Lipase Lvl [8-48 U/L] 52 U/L *HI* (08/24/15 5:32 AM) Blood Glucose, Capillary [70-100 mg/dL] 169 mg/dL *HI* (08/24/15 4:50 AM) 1Result Comment: Multiply eGFR results by 1.21 for race.2Result Comment: Naproxen, specifically the metabolite O-desmethylnaproxen, may cause spurious elevation in Total Bilirubin levels.Urinalysis Most recent to oldest [Reference Range]: 1 UA Color Yellow (08/24/15 5:32 AM) UA Appear Clear (08/24/15 5:32 AM) UA pH [5.0-8.0] 5.0 (08/24/15 5:32 AM) UA Leuk Est [Negative] Pos 2+ *ABN* (08/24/15 5:32 AM) UA Nitrite [Negative] Negative (08/24/15 5:32 AM) UA Protein [Negative] Negative (08/24/15 5:32 AM) UA Glucose [Negative] Negative (08/24/15 5:32 AM) UA Ketones [Negative] Negative (08/24/15 5:32 AM) UA Urobilinogen [<1.0] Negative (08/24/15 5:32 AM) UA Bili [Negative] Negative (08/24/15 5:32 AM) UA Blood [Negative] Negative (08/24/15 5:32 AM) UA Spec Grav [1.003-1.030] 1.020 (08/24/15 5:32 AM) Type Voided (08/24/15 5:32 AM) UA WBC [0-4] 20-50 *ABN* (08/24/15 5:32 AM) UA RBC [0-2] 0-2 (08/24/15 5:32 AM) Epithelial Cells 0-2 (08/24/15 5:32 AM) UA Bacteria None Seen (08/24/15 5:32 AM) UA Hyal Cast [0-3] 1-3 (08/24/15 5:32 AM) Immunizations Vaccine Date Refusal Reason influenza virus vaccine, inactivated1 05/24/15 influenza virus vaccine, inactivated 06/14/14 pneumococcal 23-polyvalent vaccine2 01/28/14 1Early/Late Reason: Other : DID NOT CROSS [id number]/Late Reason: Other : STATUS Procedures Procedure Date Related Diagnosis Body Site Open Reduction Internal Fixation Ankle (Left)1 11/01/14 Adrenalectomy Appendectomy Cholecystectomy Hysterectomy Total knee arthroplasty 1auto-populated from documented surgical case Social History Social History Type Response Smoking Status Never smoker Assessment and Plan No data available for this section
--- OUTSIDE RECORDS SUMMARY | 2017-10-25 21:16 | External Medical Summary | Referral Summary ---
:1945 Author Organization [facility] Address [address] [place] [address] Care Team Providers Name Role Phone Josh Canas Primary Care Physician Encounter VC Date(s): 10/23/16 - 10/23/16 [facility] [address] [place] [address] [place] Discharge Diagnosis: Acute lower UTI (urinary tract infection) Discharge Disposition: 01-Home or Self Care Attending Physician: Helio Grover MD Admitting Physician: Helio Grover MD Vital Signs Most recent to oldest [Reference Range]: 1 Temperature Oral [35.8-37.3 degC] 36.2 degC (10/23/16 8:59 AM) Peripheral Pulse Rate [60-100 bpm] 70 bpm (10/23/16 8:59 AM) Respiratory Rate [14-20 br/min] 16 br/min (10/23/16 8:59 AM) Blood Pressure [90-140/60-90 mmHg] 120/70 mmHg (10/23/16 8:59 AM) Problem List Condition Effective Dates Status [...] 1Urine from NOT FOUND collected 04/13/16 12:36:00 [id number] added automatically by system based on initiation of At Risk for Activity Intolerance Plan of Iiqn4Fxps problem was added by Discern Expert.4Problem added automatically by system based on initiation of At Risk for Infection in Nutrition Planof Tmix0Wwsprhi added automatically by system based on initiation of Risk for Injury Plan of Yrdp2Spwezum added automatically by system based on initiation of At Risk for Unstable Blood Glucose Planof Faug1Mfuhrfn added automatically by system based on initiation of Bowel Dysfunction Plan of Rctt6Fozsp from NOT FOUND collected 09/07/15 17:48:00 [id number] added automatically by system based on initiation of Fluid Volume Imbalance Plan of Oykf29Auqgszv added automatically by system based on initiation of Knowledge Deficit Plan of Xfgh44Qyiooas added automatically by system based on initiation [...] q8hr, # 15 caps, 0 Refill(s), Pharmacy: [facility] Start Date: 10/23/16 Status: OrderedLantus [...] BEFORE MEAL(S) , # 10 unknown unit,eRx: [facility] Start Date: 07/30/16 Status: Orderedsertraline 100 mg oral tablet 200 mg 2 tabs, Oral, Daily, # 60 tabs, 3 Refill(s), called to pharmacy (Rx) Start Date: 10/02/16 Status: Ordered Results Urinalysis Most recent to oldest [Reference Range]: 1 UA Color Yellow (10/23/16 9:30 AM) UA Appear Cloudy *ABN* (10/23/16 9:30 AM) UA pH [5.0-8.0] 5.5 (10/23/16 9:30 AM) UA Leuk Est [Negative] Pos 3+ *ABN* (10/23/16 9:30 AM) UA Nitrite [Negative] Negative (10/23/16 9:30 AM) UA Protein [Negative] Pos 2+ *ABN* (10/23/16 9:30 AM) UA Glucose [Negative] Negative (10/23/16 9:30 AM) UA Ketones [Negative] Negative (10/23/16 9:30 AM) UA Urobilinogen [<=1.0 mg/dL] 0.2 mg/dL (10/23/16 9:30 AM) UA Bili [Negative] Negative (10/23/16 9:30 AM) UA Blood [Negative] Pos 2+ *ABN* (10/23/16 9:30 AM) UA Spec Grav [1.003-1.030] >=1.030 (10/23/16 9:30 AM) Type Cl Catch (10/23/16 9:30 AM) UA WBC [0-4 /HPF] >50 /HPF *ABN* (10/23/16 9:30 AM) UA RBC [0-4] 10-20 *ABN* (10/23/16 9:30 AM) Epithelial Cells 10-20 (10/23/16 9:30 AM) UA Bacteria Numerous *ABN* (10/23/16 9:30 AM) Immunizations Given and Recorded Vaccine Date Status Refusal Reason influenza virus vaccine, inactivated 05/09/16 Given influenza virus vaccine, inactivated1 05/24/15 Given influenza virus vaccine, inactivated2 05/24/15 Given influenza virus vaccine, inactivated 06/14/14 Given pneumococcal 23-polyvalent vaccine3 01/28/14 Given 1Early/Late Reason: Other : DID NOT CROSS [id number] Comment: did not cross vhqrxynxs5Wgdlh/Late Reason: Other : STATUS Procedures Procedure Date Related Diagnosis Body Site Open Reduction Internal Fixation Ankle (Left)1 11/01/14 Adrenalectomy Appendectomy Cholecystectomy Hysterectomy Provision of stents or bite blocks Total knee arthroplasty 1auto-populated from documented surgical case Social History Social History Type Response Smoking Status Never smoker Assessment and Plan Extracted from: Title: Office Visit Note Author: Helio Grover MD Date: 10/23/16 Assessment/Plan Acute lower UTI (urinary tract infection) will treat with Kefex for 5 days Follow upwith PCP Culture pending History of urinary tract infection will see Nephro or Uro next month
--- OUTSIDE RECORDS SUMMARY | 2017-10-25 21:16 | External Medical Summary | Referral Summary ---
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 Discharge Diagnosis: Anxiety Discharge Diagnosis: Diabetes mellitus type 2, uncontrolled, with complications Discharge Disposition: 01-Home or Self Care Attending Physician: Som Hernández MD Admitting Physician: Josh Canas DO Vital Signs Most recent to oldest [Reference Range]: 1 Temperature Oral [35.8-37.3 degC] 36.6 degC (11/22/15 1:26 PM) Blood Pressure [90-140/60-90 mmHg] 130/84 mmHg (11/22/15 1:26 PM) Problem List Condition Effective Dates Status [...] At Risk for Activity Intolerance Plan of Rwyj9Gjvh problem was added by Discern Expert.3Problem added automatically by system based on initiation of At Risk for Infection in Nutrition Planof Tsbg5Qpfbvle added automatically by system based on initiation of Risk for Injury Plan of Cvpx4Ibchois added automatically by system based on initiation of At Risk for Unstable Blood Glucose Planof Edkn5Smmkqul added automatically by system based on initiation of Bowel Dysfunction Plan of Wved5Qbnvi from NOT FOUND collected 09/07/15 17:48:00 LNH0Lemtzrk added automatically by system based on initiation of Fluid Volume Imbalance Plan of Rzkp5Mjrlmqr added automatically by system based on initiation of Knowledge Deficit Plan of Frcu78Sejrpjx added automatically by system based on initiation [...] # 40 tabs, 3 Refill(s), Pharmacy : [facility], 1 tabs Oral QID,PRN:as [...] day), # 15 mL, 3 Refill(s), Pharmacy: [facility], 30 units SubCutaneous Bedtime (once a day) Start Date: 07/24/15 Status: OrderedmetFORMIN 500 mg oral tablet, extended release 1,000 mg 2 tabs, Oral, BID, Take with meals, start with 1 tab BID x 1 week, then 2 tabs qAM and 1tabqPM x1 week, then 2 tabs BID, # 120 tabs, 6 Refill(s), Pharmacy: [facility], 2 tabs OralBID,x30 days,Instr:Take with meals , start with 1... Start Date: 11/22/15 Stop Date: 06/19/16 Status: Orderedmetoprolol tartrate 25 mg oral tablet 25 mg 1 tabs, Oral, BID, # 60 tabs, 0 Refill(s), Pharmacy: [facility] Start Date: 07/16/15 Status: OrderedMiraLax 17 g 1 packets, Oral, Daily, Constipation, 0 Refill(s) Start Date: 09/14/15 Status: OrderedNovoLOG 8 units, SubCutaneous, TIDAC, 0 Refill(s) Start Date: 11/01/15 Status: OrderedReglan 10 mg oral tablet 10 mg 1 tabs, Oral, QID, # 120 tabs, 0 Refill(s), Pharmacy: [facility], 1 tabs Oral QID Start Date: 11/01/15 Status: OrderedZoloft 100 mg oral tablet 200 mg 2 tabs, Oral, Daily, # 60 tabs, 3 Refill(s), Pharmacy: [facility], 2 tabs Oral Daily,x30 days Start Date: 06/19/15 Stop Date: 10/17/15 Status: Ordered Results No data available for this section Immunizations Vaccine Date Refusal Reason influenza virus vaccine, inactivated1 05/24/15 influenza virus vaccine, inactivated 06/14/14 pneumococcal 23-polyvalent vaccine2 01/28/14 1Early/Late Reason: Other : DID NOT CROSS [id number]/Late Reason: Other : STATUS Procedures Procedure Date Related Diagnosis Body Site Open Reduction Internal Fixation Ankle (Left)1 11/01/14 Adrenalectomy Appendectomy Cholecystectomy Hysterectomy Provision of stents or bite blocks Total knee arthroplasty 1auto-populated from documented surgical case Social History Social History Type Response Smoking Status Never smoker Assessment and Plan Referrals to Other ProvidersCKD 2/2 DM Referred by: Josh Canas DO
--- OUTSIDE RECORDS SUMMARY | 2017-10-25 21:17 | External Medical Summary | Referral Summary ---
:1945 Author Organization Via [facility] Address [address] [place] [address] Care Team Providers Name Role Phone Josh Canas Primary Care Physician Encounter VC Date(s): 09/07/15 - 09/07/15 [facility] [address], [place] [address] Discharge Diagnosis: Hyperglycemia Discharge Diagnosis: UTI (urinary tract infection) Discharge Diagnosis: Noncompliance with medication regimen Discharge Disposition: 01-Home or Self Care Attending Physician: Marvin Espinoza MD Admitting Physician: Marvin Espinoza MD Vital Signs Most recent to oldest [Reference Range]: 1 2 Temperature Oral [35.8-37.3 degC] 37.1 degC (09/07/15 7:41 PM) Peripheral Pulse Rate [60-100 bpm] 81 bpm (09/07/15 7:41 PM) Heart Rate Monitored [60-100 bpm] 81 bpm (09/07/15 7:41 PM) Respiratory Rate [14-20 br/min] 14 br/min (09/07/15 7:41 PM) Blood Pressure [90-140/60-90 mmHg] 127/57 mmHg 127/57 mmHg (09/07/15 7:41 PM) (09/07/15 7:41 PM) Mean Arterial Pressure, Cuff 93 mmHg (09/07/15 7:41 PM) SpO2 98 % 95 % (09/07/15 7:41 PM) (09/07/15 7:41 PM) Problem List Condition Effective Dates Status [...] At Risk for Activity Intolerance Plan of Ruak4Grco problem was added by Discern Expert.3Problem added automatically by system based on initiation of At Risk for Infection in Nutrition Planof Mudu9Gsskctb added automatically by system based on initiation of Risk for Injury Plan of Wdvx5Rbacmdz added automatically by system based on initiation of At Risk for Unstable Blood Glucose Planof Aizw2Uxlkakk added automatically by system based on initiation of Knowledge Deficit Plan of Tbtv1Vircfks added automatically by system based on initiation [...] BID, # 60 tabs, 3 Refill(s), Pharmacy: [facility], 1 tabs Oral BID [...] Daily, # 30 tabs, 3 Refill(s), Pharmacy: [facility], 10 mg Oral Daily Start Date: 03/22/15 Status: OrderedtraZODone 50 mg oral tablet 50 mg 1 tabs, Oral, Bedtime (once a day), # 30 tabs, 0 Refill(s), Pharmacy: [facility], 1 tabs Oral Bedtime (once a day) Start Date: 05/10/15 Status: OrderedVoltaren 1% topical gel 1 deric, Topical, QID, as needed for pain, # 100 g, 0 Refill(s) Start Date: 07/14/15 Status: OrderedWellbutrin XL 150 mg/24 hours oral tablet, extended release 150 mg 1 tabs, Oral, q24hr, # 30 tabs, 0 Refill(s), Pharmacy: [facility], 1 tabs Oral q24hr Start Date: 05/10/15 Status: OrderedZoloft 100 mg oral tablet 200 mg 2 tabs, Oral, Daily, # 60 tabs, 3 Refill(s), Pharmacy: [facility], 2 tabs Oral Daily,x30 days Start Date: 06/19/15 Stop Date: 10/17/15 Status: Ordered Results Chemistry Most recent to oldest [Reference Range]: 1 Sodium Lvl [136-144 mEq/L] 130 mEq/L *LOW* (09/07/15 4:50 PM) Potassium Lvl [3.6-5.1 mEq/L] 4.7 mEq/L (09/07/15 4:50 PM) Chloride [99-109 mEq/L] 100 mEq/L (09/07/15 4:50 PM) CO2 [22-32 mEq/L] 24 mEq/L (09/07/15 4:50 PM) AGAP [3-20] 6 (09/07/15 4:50 PM) BUN [4-20 mg/dL] 23 mg/dL *HI* (09/07/15 4:50 PM) Glucose Lvl [70-100 mg/dL] 374 mg/dL *HI* (09/07/15 4:50 PM) Creatinine Lvl [0.44-1.03 mg/dL] 1.42 mg/dL *HI* (09/07/15 4:50 PM) eGFR [>60] 37 1 *ABN* (09/07/15 4:50 PM) Calcium Lvl [8.6-10.0 mg/dL] 8.6 mg/dL (09/07/15 4:50 PM) Sodium Venous [136-144 mEq/L] 132 mEq/L *LOW* (09/07/15 4:57 PM) Potassium Venous [3.6-5.1 mEq/L] 4.7 mEq/L 2 (09/07/15 4:57 PM) Calcium Ionized Venous [1.19-1.41 mmol/L] 1.13 mmol/L *LOW* (09/07/15 4:57 PM) Total CO2 Venous [25-29 mEq/L] 18 mEq/L *LOW* (09/07/15 4:57 PM) HGB Venous NPT [12.0-16.0 gm/dL] 12.2 gm/dL (09/07/15 4:57 PM) HCT Venous [37.0-47.0 %] 36.0 % *LOW* (09/07/15 4:57 PM) Glucose Venous [70-100 mg/dL] 369 mg/dL *HI* (09/07/15 4:57 PM) BUN Venous [4-20] 26 *HI* (09/07/15 4:57 PM) Creatinine Venous [0.4-1.0 mg/dL] 1.4 mg/dL *HI* (09/07/15 4:57 PM) Venous CL [99-109 mEq/L] 100 mEq/L (09/07/15 4:57 PM) Anion Gap, Les [3-20] 14 (09/07/15 4:57 PM) Blood Glucose, Capillary [70-100 mg/dL] 170 mg/dL *HI* (09/07/15 7:20 PM) 1Result Comment: Multiply eGFR results by 1.21 for race.2Result Comment: This test was performed on a whole blood specimen. The presence or absence of hemolysis cannot be assessed. Hemolysis can falsely elevate potassium levels. Normals are for venous specimens only.Toxicology Most recent to oldest [Reference Range]: 1 U Amphetamine Scrn Negative (09/07/15 4:50 PM) U Cocaine Scrn Negative (09/07/15 4:50 PM) U Cannab Scrn Negative (09/07/15 4:50 PM) U Opiate Scrn Positive *ABN* (09/07/15 4:50 PM) U PCP Scrn Negative (09/07/15 4:50 PM) U Benzodiazepine Scrn Positive *ABN* (09/07/15 4:50 PM) U Barbiturate Scrn Negative (09/07/15 4:50 PM) Methadone Lvl Negative (09/07/15 4:50 PM) Tricyclics Negative 1 (09/07/15 4:50 PM) 1Result Comment: Cut-off concentrations: Amphetamines: 1000 [...] oldest [Reference Range]: 1 UA Color Yellow (09/07/15 5:48 PM) UA Appear Cloudy *ABN* (09/07/15 5:48 PM) UA pH [5.0-8.0] 5.0 (09/07/15 5:48 PM) UA Leuk Est [Negative] Pos 3+ *ABN* (09/07/15 5:48 PM) UA Nitrite [Negative] Positive *ABN* (09/07/15 5:48 PM) UA Protein [Negative] Pos 1+ *ABN* (09/07/15 5:48 PM) UA Glucose [Negative] Pos 3+ *ABN* (09/07/15 5:48 PM) UA Ketones [Negative] Negative (09/07/15 5:48 PM) UA Urobilinogen [<1.0] Negative (09/07/15 5:48 PM) UA Bili [Negative] Negative (09/07/15 5:48 PM) UA Blood [Negative] Pos 1+ *ABN* (09/07/15 5:48 PM) UA Spec Grav [1.003-1.030] 1.010 (09/07/15 5:48 PM) Type Clean Catch (09/07/15 5:48 PM) UA WBC [0-4 /HPF] >50 /HPF *ABN* (09/07/15 5:48 PM) UA RBC [0-2] 5-10 *ABN* (09/07/15 5:48 PM) Epithelial Cells None Seen (09/07/15 5:48 PM) UA Bacteria Occasional *ABN* (09/07/15 5:48 PM) UA Hyal Cast [0-3] 1-3 (09/07/15 5:48 PM) UA Mucous Present (09/07/15 5:48 PM) Immunizations Vaccine Date Refusal Reason influenza virus vaccine, inactivated1 05/24/15 influenza virus vaccine, inactivated 06/14/14 pneumococcal 23-polyvalent vaccine2 01/28/14 1Early/Late Reason: Other : DID NOT CROSS [id number]/Late Reason: Other : STATUS Procedures Procedure Date Related Diagnosis Body Site Open Reduction Internal Fixation Ankle (Left)1 11/01/14 Adrenalectomy Appendectomy Cholecystectomy Hysterectomy Provision of stents or bite blocks Total knee arthroplasty 1auto-populated from documented surgical case Social History Social History Type Response Smoking Status Never smoker Assessment and Plan No data available for this section
--- OUTSIDE RECORDS SUMMARY | 2017-10-25 21:17 | External Medical Summary | Referral Summary ---
:1945 Author Organization Via [facility] Address [address] [place] [address] Care Team Providers Name Role Phone Josh Canas Primary Care Physician Encounter VC Date(s): 09/11/15 - 09/14/15 [facility] [address] [place] [address] Disposition: [facility] Attending Physician: Seth Sawyer MD Admitting Physician: Danna Clifton MD Vital Signs Most recent to oldest [Reference Range]: 1 Temperature Oral [35.8-37.3 degC] 36.8 degC (09/14/15 12:00 PM) Peripheral Pulse Rate [60-100 bpm] 58 bpm *LOW* (09/14/15 12:00 PM) Heart Rate Monitored [60-100 bpm] 54 bpm *LOW* (09/13/15 8:30 PM) Respiratory Rate [14-20 br/min] 18 br/min (09/14/15 12:00 PM) Blood Pressure [90-140/60-90 mmHg] 140/73 mmHg (09/14/15 12:00 PM) Mean Arterial Pressure, Cuff 102 mmHg (09/11/15 7:15 PM) SpO2 96 % (09/14/15 12:00 PM) Problem List Condition Effective Dates [...] At Risk for Activity Intolerance Plan of Gfou7Fmwj problem was added by Discern Expert.3Problem added automatically by system based on initiation of At Risk for Infection in Nutrition Planof Idgi8Sewaefn added automatically by system based on initiation of Risk for Injury Plan of Ihub3Dyiyjll added automatically by system based on initiation of At Risk for Unstable Blood Glucose Planof Kihj0Utkgkye added automatically by system based on initiation of Bowel Dysfunction Plan of Sfup5Yawgc from NOT FOUND collected 09/07/15 17:48:00 [id number] added automatically by system based on initiation of Fluid Volume Imbalance Plan of Zytj2Zzerzbo added automatically by system based on initiation of Knowledge Deficit Plan of Yewh45Mopiuug added automatically by system based on initiation [...] # 40 tabs, 3 Refill(s), Pharmacy : [facility], 1 tabs Oral QID,PRN:as [...] # 15 mL, 3 Refill(s), Pharmacy: [facility], 30 units SubCutaneous Bedtime (once a day) Start Date: 07/24/15 Status: Orderedmeropenem 500 mg intravenous injection 500 mg, IV, q8hr, # 4,500 mg, 0 Refill(s), other reason (Rx) Start Date: 09/14/15 Stop Date: 09/17/15 Status: Orderedmetoprolol tartrate 25 mg oral tablet 25 mg 1 tabs, Oral, BID, # 60 tabs, 0 Refill(s), Pharmacy: [facility] Start Date: 07/16/15 Status: OrderedMiraLax 17 g 1 packets, Oral, Daily, Constipation, 0 Refill(s) Start Date: 09/14/15 Status: OrderedNovoLOG 100 units/mL subcutaneous solution 10 units, SubCutaneous, TIDAC, # 15 mL, 3 Refill(s), Pharmacy: [facility], 10 units SubCutaneous TIDAC Start Date: 07/24/15 Status: OrderedZoloft 100 mg oral tablet 200 mg 2 tabs, Oral, Daily, # 60 tabs, 3 Refill(s), Pharmacy: [facility], 2 tabs Oral Daily,x30 days Start Date: 06/19/15 Stop Date: 10/17/15 Status: Ordered Results Hematology Most recent to oldest [Reference Range]: 1 WBC [4.8-10.8 10*3/uL] 6.3 10*3/uL (09/12/15 4:16 AM) RBC [4.00-5.20] 3.89 *LOW* (09/12/15 4:16 AM) Hgb [12.0-16.0 gm/dL] 9.9 gm/dL *LOW* (09/12/15 4:16 AM) Hct [37.0-47.0 %] 31.6 % *LOW* (09/12/15 4:16 AM) MCV [82.0-99.0 fL] 81.2 fL *LOW* (09/12/15 4:16 AM) MCH [27.0-32.0 pg] 25.4 pg *LOW* (09/12/15 4:16 AM) MCHC [32.0-36.0 gm/dL] 31.3 gm/dL *LOW* (09/12/15 4:16 AM) RDW [11.5-14.5 %] 14.1 % (09/12/15 4:16 AM) Platelet [150-400 10*3/uL] 165 10*3/uL (09/12/15 4:16 AM) MPV [9.4-12.4 fL] 9.9 fL (09/12/15 4:16 AM) Immature Granulocytes [0.0-1.0 %] 0.0 % (09/12/15 4:16 AM) Neutrophils [51-75 %] 55 % (09/12/15 4:16 AM) Lymphocytes [20-46 %] 35 % (09/12/15 4:16 AM) Monocytes [4-11 %] 7 % (09/12/15 4:16 AM) Eosinophils [0-4 %] 3 % (09/12/15 4:16 AM) Basophils [0-2 %] 0 % (09/12/15 4:16 AM) Neutro Absolute [1.90-7.00 10*3] 3.44 10*3 (09/12/15 4:16 AM) Lymph Absolute [0.80-3.30 10*3] 2.18 10*3 (1/26/16 4:16 AM) [place] Absolute [0.30-1.00 10*3] 0.46 10*3 (09/12/15 4:16 AM) Eos Absolute [0.00-0.50 10*3] 0.19 10*3 (09/12/15 4:16 AM) Baso Absolute [0.00-0.20 10*3] 0.02 10*3 (09/12/15 4:16 AM) Nucleated RBC Automated [0 /100 WBC] 0.0 /100 WBC (09/12/15 4:16 AM) Chemistry Most recent to oldest [Reference Range]: 1 Sodium Lvl [136-144 mEq/L] 138 mEq/L (09/14/15 5:24 AM) Potassium Lvl [3.6-5.1 mEq/L] 4.5 mEq/L (09/14/15 5:24 AM) Chloride [99-109 mEq/L] 111 mEq/L *HI* (09/14/15 5:24 AM) CO2 [22-32 mEq/L] 23 mEq/L (09/14/15 5:24 AM) AGAP [3-20] 4 (09/14/15 5:24 AM) BUN [4-20 mg/dL] 10 mg/dL (09/14/15 5:24 AM) Glucose Lvl [70-100 mg/dL] 178 mg/dL *HI* (09/14/15 5:24 AM) Creatinine Lvl [0.44-1.03 mg/dL] 0.81 mg/dL (09/14/15 5:24 AM) eGFR [>60] >60 1 (09/14/15 5:24 AM) Calcium Lvl [8.6-10.0 mg/dL] 8.5 mg/dL *LOW* (09/14/15 5:24 AM) Albumin Lvl [3.5-4.8 gm/dL] 2.7 gm/dL *LOW* (09/14/15 5:24 AM) Total Protein [6.1-7.9 gm/dL] 5.2 gm/dL *LOW* (09/12/15 4:16 AM) ALT [14-54 U/L] 24 U/L (09/12/15 4:16 AM) AST [15-41 U/L] 17 U/L (09/12/15 4:16 AM) Alk Phos [26-104 U/L] 85 U/L (09/12/15 4:16 AM) Bili Total [0.2-1.2 mg/dL] 0.5 mg/dL 2 (09/12/15 4:16 AM) Bili Direct [0.0-0.2 mg/dL] 0.1 mg/dL (09/12/15 4:16 AM) Bili Indirect [0.0-1.0 mg/dL] 0.4 mg/dL (09/12/15 4:16 AM) Phosphorus [2.4-4.7 mg/dL] 3.1 mg/dL 3 (09/14/15 5:24 AM) Blood Glucose, Capillary [74-106 mg/dL] 142 mg/dL *HI* (09/14/15 11:55 AM) 1Result Comment: Multiply eGFR results by 1.21 for race.2Result Comment: Naproxen, specifically the metabolite O-desmethylnaproxen, may cause spurious elevation in Total Bilirubin levels.3Result Comment: High dosages of liposomal Amphotericin B (AmBisome) therapy or other drug preparations that use a liposomal envelope to facilitate drug delivery may cause falsely elevated results for phosphorus.Toxicology Most recent to oldest [Reference Range]: 1 U Amphetamine Scrn Negative (09/12/15 10:45 AM) U Cocaine Scrn Negative (09/12/15 10:45 AM) U Cannab Scrn Negative (09/12/15 10:45 AM) U Opiate Scrn Positive *ABN* (09/12/15 10:45 AM) U PCP Scrn Negative (09/12/15 10:45 AM) U Benzodiazepine Scrn Positive *ABN* (09/12/15 10:45 AM) U Barbiturate Scrn Negative (09/12/15 10:45 AM) Methadone Lvl Negative (09/12/15 10:45 AM) Tricyclics Negative 1 (09/12/15 10:45 AM) 1Result Comment: Cut-off concentrations: Amphetamines: 1000 [...] to oldest [Reference Range]: 1 UA Color Straw (09/11/15 8:23 PM) UA Appear Sl Cloudy (09/11/15 8:23 PM) UA pH [5.0-8.0] 5.0 (09/11/15 8:23 PM) UA Leuk Est [Negative] Pos 3+ *ABN* (09/11/15 8:23 PM) UA Nitrite [Negative] Positive *ABN* (09/11/15 8:23 PM) UA Protein [Negative] Negative (09/11/15 8:23 PM) UA Glucose [Negative] Negative (09/11/15 8:23 PM) UA Ketones [Negative] Negative (09/11/15 8:23 PM) UA Urobilinogen [<1.0] Negative (09/11/15 8:23 PM) UA Bili [Negative] Negative (09/11/15 8:23 PM) UA Blood [Negative] Negative (09/11/15 8:23 PM) UA Spec Grav [1.003-1.030] 1.005 (09/11/15 8:23 PM) Type Not Specified (09/11/15 8:23 PM) UA WBC [0-4] 10-20 *ABN* (09/11/15 8:23 PM) UA RBC [0-2] 0-2 (09/11/15 8:23 PM) Epithelial Cells 0-2 (09/11/15 8:23 PM) UA Bacteria Moderate *ABN* (09/11/15 8:23 PM) Microbiology Reports TEST:Urine Culture STATUS:Auth (Verified) BODY SITE: SOURCE:Urine COLLECTED DATE/TIME:09/11/15 8:23 PMUrine CultureMixed rosalinda indicative of vaginal and/or skin contaminationTEST:Blood Culture STATUS:Order in Progress BODY SITE: SOURCE:Blood COLLECTED DATE/TIME:09/11/15 6:50 PMBlood CultureNo growth after 12 hours incubation. Nursing unit will be called if growth is detected. - A blood culture drawn through a catheter with a differential time to positivity at least 2 hours sooner than one drawn from a peripheral vein at the same time suggests a catheter-related bloodstream infection.TEST:Blood Culture STATUS:Order in Progress BODY SITE: SOURCE:Blood COLLECTED DATE/TIME:09/11/15 6:23 PMBlood CultureNo growth after 12 hours incubation. Nursing unit will be called if growth is detected. - A blood culture drawn through a catheter with a differential time to positivity at least 2 hours sooner than one drawn from a peripheral vein at the same time suggests a catheter-related bloodstream infection. Immunizations Vaccine Date Refusal Reason influenza virus vaccine, inactivated1 05/24/15 influenza virus vaccine, inactivated 06/14/14 pneumococcal 23-polyvalent vaccine2 01/28/14 1Early/Late Reason: Other : DID NOT CROSS [id number]/Late Reason: Other : STATUS Procedures Procedure Date Related Diagnosis Body Site Insertion of peripherally inserted central venous 09/12/15 catheter (PICC), without subcutaneous port or pump; age 5 years or older.. Open Reduction Internal Fixation Ankle (Left)1 11/01/14 Adrenalectomy Appendectomy Cholecystectomy Hysterectomy Provision of stents or bite blocks Total knee arthroplasty 1auto-populated from documented surgical case Social History Social History Type Response Smoking Status Never smoker Assessment and Plan No data available for this section
--- OUTSIDE RECORDS SUMMARY | 2017-10-25 21:17 | External Medical Summary | Referral Summary ---
:1945 [facility] Address [address] [place] [address] Care Team Providers Name Role Phone Josh Canas Primary Care Physician Encounter VC Date(s): 04/19/16 - 04/19/16 [facility] [address] [place] [address] [place] Discharge Diagnosis: Neck pain Discharge Diagnosis: Bacterial UTI Discharge Diagnosis: Trigger point Discharge Diagnosis: Hypoglycemia Discharge Disposition: 01-Home or Self Care Attending Physician: Jaymie West MD Admitting Physician: Josh Canas DO Vital Signs Most recent to oldest [Reference Range]: 1 Temperature Oral [35.8-37.3 degC] 37.2 degC (04/19/16 10:34 AM) Peripheral Pulse Rate [60-100 bpm] 92 bpm (04/19/16 10:34 AM) Respiratory Rate [14-20 br/min] 20 br/min (04/19/16 10:34 AM) Blood Pressure [90-140/60-90 mmHg] 110/70 mmHg (04/19/16 10:34 AM) Problem List Condition Effective Dates Status [...] 1Urine from NOT FOUND collected 04/13/16 12:36:00 PBL9Tiyrads added automatically by system based on initiation of At Risk for Activity Intolerance Plan of Emog9Mewh problem was added by Discern Expert.4Problem added automatically by system based on initiation of At Risk for Infection in Nutrition Planof Vtja6Btunqrj added automatically by system based on initiation of Risk for Injury Plan of Cmoo6Mxababj added automatically by system based on initiation of At Risk for Unstable Blood Glucose Planof Nwmt8Pqevxee added automatically by system based on initiation of Bowel Dysfunction Plan of Oeeo2Khwxs from NOT FOUND collected 09/07/15 17:48:00 QCN3Drararc added automatically by system based on initiation of Fluid Volume Imbalance Plan of Nmha05Kitywrb added automatically by system based on initiation of Knowledge Deficit Plan of Dytc84Vcfciwg added automatically by system based on initiation [...] Start Date: 04/13/16 Stop Date: 04/20/16 Status: OrderedGlucometer (DME) DME Item Glucometer (1) [...] day), # 15 mL, 3 Refill(s), Pharmacy: [facility], 35 units SubCutaneous Bedtime [...] BID, # 120 tabs, 6 Refill(s), Pharmacy: [facility], 2 tabs OralBID,x30 days,Instr:Take with meals , start with 1... Start Date: 11/22/15 Stop Date: 06/19/16 Status: OrderedNovoLOG 10 units, SubCutaneous, TIDAC, 0 Refill(s) Start Date: 11/01/15 Status: OrderedReglan 10 mg oral tablet 10 mg 1 tabs, Oral, QID, # 120 tabs, 0 Refill(s), Pharmacy: [facility], 1 tabs Oral QID Start Date: 11/01/15 Status: Orderedsertraline 100 mg oral tablet See Instructions, TAKE TWO TABLETS BY MOUTH ONCE DAILY, # 60 tabs, 2 Refill(s), eRx: [facility], TAKE TWO TABLETS BY MOUTH ONCE DAILY Start Date: 02/28/16 Status: Ordered Results No data available for this section Immunizations Vaccine Date Refusal Reason influenza virus vaccine, inactivated1 05/24/15 influenza virus vaccine, inactivated 06/14/14 pneumococcal 23-polyvalent vaccine2 01/28/14 1Early/Late Reason: Other : DID NOT CROSS [id number]/Late Reason: Other : STATUS Procedures Procedure Date Related Diagnosis Body Site Injection(s); single or multiple trigger 04/19/16 point(s), 1 or 2 muscle(s) Open Reduction Internal Fixation Ankle (Left)1 11/01/14 Adrenalectomy Appendectomy Cholecystectomy Hysterectomy Provision of stents or bite blocks Total knee arthroplasty 1auto-populated from documented surgical case Social History Social History Type Response Smoking Status Never smoker Assessment and Plan Extracted from: Title: Ambulatory Patient Education Author: Josh Canas DO Date: 04/19/16 Family Medicine Blood Glucose Monitoring, Adult Monitoring your blood glucose (also know as blood sugar) helps you to manage your diabetes. It also helps you and your health care provider monitor your diabetes and determine how well your treatment plan is working. WHY SHOULD YOU MONITOR YOUR BLOOD GLUCOSE? It can help you understand how food, exercise, and medicine affect your blood glucose. It allows you to know what your blood glucose is at any given moment. You can quickly tell if you are having low blood glucose (hypoglycemia) or high blood glucose (hyperglycemia). It can help you and your health care provider know how to adjust your medicines. It can help you understand how to manage an illness or adjust medicine for exercise. WHEN SHOULD YOU TEST? Your health care provider will help you decide how often you should check your blood glucose. This may depend on the type of diabetes you have, your diabetes control, or the types of medicines you are t aking. Be sure to write down all of your blood glucose readings so that this information can be reviewed with your health care provider. See below for examples of testing times that your health care provider may suggest. Type 1 Diabetes Test at least 2 times per day if your diabetes is well controlled, if you are using an insulin pump, or if you perform multiple daily injections. If your diabetes is not well controlled or if you are sick, you may need to test more often. It is a good idea to also test: Before every insulin injection. Before and after exercise. Between meals and 2 hours after a meal. Occasionally between 2:00 a.m. and 3:00 a.m. Type 2 Diabetes If you are taking insulin, test at least 2 times per day. However, it is best to test before every insulin injection. If you take medicines by mouth (orally), test 2 times a day. If you are on a controlled diet, test once a day. If your diabetes is not well controlled or if you are sick, you may need to monitor more often. HOW TO MONITOR YOUR BLOOD GLUCOSE Supplies Needed Blood glucose meter. Test strips for your meter. Each meter has its own strips. You must use the strips that go with your own meter. A pricking needle (lancet). A device that holds the lancet (lancing device). A journal or log book to write down your results. Procedure Wash your hands with soap and water. Alcohol is not preferred. Prick the side of your finger (not the tip) with the lancet. Gently milk the finger until a small drop of blood appears. Follow the instructions that come with your meter for inserting the test strip, applying blood to the strip, and using your blood glucose meter. Other Areas to Get Blood for Testing Some meters allow you to use other areas of your body (other than your finger) to test your blood. These areas are called alternative sites. The most common alternative sites are: The forearm. The thigh. The back area of the lower leg. The palm of the hand. The blood flow in these areas is slower. Therefore, the blood glucose values you get may be delayed, and the numbers are different from what you would get from your fingers. Do not use alternative sites if you think you are having hypoglycemia. Your reading will not be accurate. Always use a finger if you are having hypoglycemia. Also, if you cannot feel your lows (hypoglycemia unawareness), always use your fingers for your blood glucose checks. ADDITIONAL TIPS FOR GLUCOSE MONITORING Do not reuse lancets. Always carry your supplies with you. All blood glucose meters have a 24-hour "hotline" number to call if you have questions or need help. Adjust (calibrate) your blood glucose meter with a control solution after finishing a few boxes of strips. BLOOD GLUCOSE RECORD KEEPING It is a good idea to keep a daily record or log of your blood glucose readings. Most glucose meters, if not all, keep your glucose records stored in the meter. Some meters come with the ability to downl oad your records to your home computer. Keeping a record of your blood glucose readings is especially helpful if you are wanting to look for patterns. Make notes to go along with the blood glucose readi ngs because you might forget what happened at that exact time. Keeping good records helps you and your health care provider to work together to achieve good diabetes management. This information is not intended to replace advice given to you by your health care provider. Make sure you discuss any questions you have with your health care provider. Document Released: 08/06/2004 Document Revised: 2015 Document Reviewed: 12/27/2013 Exit[employer] Patient Information 2016 [employer]. No follow up information was provided. Extracted from: Title: Office Visit Note Author: Missael Josh K DO Date: 04/19/16 Assessment/Plan Hypoglycemia reduce levemir from 35U qHS to 30qHS and novolog from 10U TIDAC to 8U TIDAC. will record BG over this week and bring log to next visit. Counseled over hypoglycemia episodes, she is to call clinic i f she continues to have any low blood glucose levels. Hx of UTI still on treatmentwithkeflex. reviewed cultures, continue keflex. Resolving. Will follow at next visit. Left shoulder pain Suspect the patient slept wrong and now has hypertonic musculature in the subacute phase which has resulted in trigger point of her left supraspinatus muscle. recommended trigger point injection. T he procedure, risks, potential consequences and complications, and alternatives have been explained to the patient in person in detail, and the patient expressed understanding and accepted. We will inje ct this today as noted below.Attempted to send patient to PT but patient denies wanting to go because she statesshe cant afford this. Demonstrated and educated patient on stretching exercises to perNo body tenderness, no indication for imaging apparent today. trigger point injection Area was cleaned with alcohol and in sterile fashion I Injected 3ml of 1% lidocainejust superior and medial to the superior medial aspect of the scapula on the left at the point of greatest tendernes s.The area was then subsequently needled. Patient tolerated the procedure well. no blood loss. routine post procedure wound care was given. Patient is to return in 1 week for follow-up of hypoglycemia and diabetes management. I discussed the patient with the precepting physician who is in agreement with the above stated assessment and plan and was also present for a phelps portion of the encounter including the procedure trigger point injection as noted above. I personally interviewed and examined this patient, reviewed the chart and note, and discussed it with the Resident/REGIONAL ACCOUNT EXECUTIVE/PA/RN/PharmD, and was physically present and assisted during the entire procedur e, and concur with the assessment and plan as above.
--- OUTSIDE RECORDS SUMMARY | 2017-10-25 21:17 | External Medical Summary | Referral Summary ---
:1945 Author Organization Via [facility] Address [address] [place] [address] Care Team Providers Name Role Phone anibal Josh Shaista Primary Care Physician Encounter VC Date(s): 04/20/15 - 04/20/15 [facility] [address] [place] [address] [place] Discharge Diagnosis: Depression Discharge Diagnosis: Anxiety Discharge Disposition: 01-Home or Self Care Attending Physician: Comfort Davila MD Admitting Physician: Feroz Chino MD Vital Signs Most recent to oldest [Reference Range]: 1 Temperature Oral [35.8-37.3 degC] 37 degC (04/20/15 1:57 PM) Peripheral Pulse Rate [60-100 bpm] 69 bpm (04/20/15 1:57 PM) Respiratory Rate [14-20 br/min] 17 br/min (04/20/15 1:57 PM) Blood Pressure [90-140/60-90 mmHg] 100/60 mmHg (04/20/15 1:57 PM) SpO2 97 % (04/20/15 1:57 PM) Problem List Condition Effective Dates Status [...] At Risk for Activity Intolerance Plan of Oxek5Sdmd problem was added by Discern Expert.3Problem added automatically by system based on initiation of At Risk for Infection in Nutrition Planof Rnav6Lscbtmn added automatically by system based on initiation of Risk for Injury Plan of Bsug4Wvobunj added automatically by system based on initiation of At Risk for Unstable Blood Glucose Planof Uhiy0Imjczuf added automatically by system based on initiation of Bowel Dysfunction Plan of Esqj0Kdntl from NOT FOUND collected 09/07/15 17:48:00 IYY2Ovjkfqm added automatically by system based on initiation of Fluid Volume Imbalance Plan of Kqck3Czfuzjm added automatically by system based on initiation of Knowledge Deficit Plan of Xgal61Yfnzloh added automatically by system based on initiation [...] # 40 tabs, 3 Refill(s), Pharmacy : [facility], 1 tabs Oral QID,PRN:as needed [...] day), # 15 mL, 3 Refill(s), Pharmacy: [facility], 30 units SubCutaneous Bedtime (once a day) Start Date: 07/24/15 Status: Orderedmetoprolol tartrate 25 mg oral tablet 25 mg 1 tabs, Oral, BID, # 60 tabs, 0 Refill(s), Pharmacy: [facility] Start Date: 07/16/15 Status: OrderedMiraLax 17 g 1 packets, Oral, Daily, Constipation, 0 Refill(s) Start Date: 09/14/15 Status: OrderedNovoLOG 100 units/mL subcutaneous solution 10 units, SubCutaneous, TIDAC, # 15 mL, 3 Refill(s), Pharmacy: [facility], 10 units SubCutaneous TIDAC Start Date: 07/24/15 Status: OrderedZoloft 100 mg oral tablet 200 mg 2 tabs, Oral, Daily, # 60 tabs, 3 Refill(s), Pharmacy: [facility], 2 tabs Oral Daily,x30 days Start Date: 06/19/15 Stop Date: 10/17/15 Status: Ordered Results No data available for this section Immunizations Vaccine Date Refusal Reason influenza virus vaccine, inactivated1 05/24/15 influenza virus vaccine, inactivated 06/14/14 pneumococcal 23-polyvalent vaccine2 01/28/14 1Early/Late Reason: Other : DID NOT CROSS [id number]/Late Reason: Other : STATUS Procedures Procedure Date Related Diagnosis Body Site Open Reduction Internal Fixation Ankle (Left)1 11/01/14 Adrenalectomy Appendectomy Cholecystectomy Hysterectomy Provision of stents or bite blocks Total knee arthroplasty 1auto-populated from documented surgical case Social History Social History Type Response Smoking Status Never smoker Assessment and Plan Extracted from: Title: OV - anxiety Author: Feroz Chino MD Date: 04/20/15 Assessment/Plan Anxiety Depression Patient's symptoms are most consistent with major depressive disorder as well as generalized anxiety disorder. Given the length of time that they last in the symptoms, I'm less concerned fo r panic attacks. I do not feel that Ativan is anappropriate treatment at this time, especially because she has not been trialed at the maximum dose of her Zoloft. Plan: Increase Zoloft to 200 mg daily. - Hydroxyzine 50 mg 4 times daily as needed for acute anxiety. Patient counseled on side effects of this medication, including drowsiness. -Patient provided with handout to follow up with a mental health counselor. Patient states that she will pursue this. Follow-up visit in [address] Lennon. PHQ-9 of 10-14. - The patient was briefly assessed in regards to major depressive disorder. - Will have patient schedule a follow up visit to discuss diagnosis and treatment options for depression. Orders: hydrOXYzine, 50 mg 1 tabs, Oral, QID, as needed for anxiety, # 40 tabs, 0 Refill(s), Pharmacy: [facility], 1 tabs Oral QID,PRN:as needed for anxiety sertraline, 200 mg 2 tabs, Oral, Daily, # 60 tabs, 0 Refill(s), Pharmacy: [facility], 2 tabs Oral Daily,x30 days I have discussed this patient with my preceptor, Dr. Davila. Feroz Chino M.D. PGY-2, Family Medicine Addendum by Comfort Davila MD on I discussed the patient with the April 20, 2015 17:00:10 CDT Resident/ALODIZE MACHINE HELPER/PA/RN/PharmD, reviewed the chart , and concur with the assessment and plan as above. ~Comfort Davila MD
--- OUTSIDE RECORDS SUMMARY | 2017-10-25 21:17 | External Medical Summary | Referral Summary ---
:1945 Author Organization [facility] Address [address] [place] [address] Care Team Providers Name Role Phone anibal Josh K Primary Care Physician Encounter VC Date(s): 01/25/15 - 01/25/15 [facility] [address] [place] [address] [place] Discharge Diagnosis: Diabetes Discharge Diagnosis: Insomnia Discharge Disposition: 01-Home or Self Care Attending Physician: Karyn Ngo MD Admitting Physician: Yue Ruby DO Vital Signs Most recent to oldest [Reference Range]: 1 Temperature Oral [35.8-37.3 degC] 36.3 degC (01/25/15 1:55 PM) Peripheral Pulse Rate [60-100 bpm] 72 bpm (01/25/15 1:55 PM) Respiratory Rate [14-20 br/min] 16 br/min (01/25/15 1:55 PM) Blood Pressure [90-140/60-90 mmHg] 98/52 mmHg (01/25/15 1:55 PM) Problem List Condition Effective Dates Status [...] At Risk for Activity Intolerance Plan of Bwun9Jkdwdll added automatically by system based on initiation of At Risk for Infection in Nutrition Planof Pnvl6Jmwpxbl added automatically by system based on initiation of Risk for Injury Plan of Ltnd8Pzravok added automatically by system based on initiation of At Risk for Unstable Blood Glucose Planof Zvfw6Ylopolt added automatically by system based on initiation of Knowledge Deficit Plan of Yvmp7Obuqmce added automatically by system based on initiation [...] day), # 30 tabs, 11 Refill(s), Pharmacy: [facility], 1 tabs Oral Bedtime [...] episodes, # 10 mL, 0 Refill(s), Pharmacy: [facility], 20 units SubCutaneous Bedtime (once a day),Instr:call office if having hypoglycemic episodes Start Date: 06/21/15 Status: Orderedlisinopril 2.5 mg oral tablet 2.5 mg 1 tabs, Oral, Daily, # 30 tabs, 3 Refill(s), Pharmacy: [facility] Start Date: 06/19/15 Status: OrderedLunesta 1 mg oral tablet 1 mg 1 tabs, Oral, Bedtime (once a day), as needed for insomnia, # 30 tabs, 5 Refill(s) Start Date: 01/25/15 Status: OrderedmetFORMIN 1000 mg oral tablet 1,000 mg 1 tabs, Oral, BID, # 60 tabs, 3 Refill(s), Pharmacy: [facility], 1 tabs Oral BID Start Date: 06/05/15 Status: OrderedMetoprolol Tartrate 25 mg, Oral, BID, 0 Refill(s) Start Date: 01/08/15 Status: OrderedNovoLOG 100 units/mL subcutaneous solution 6 units, SubCutaneous, TIDAC, # 15 mL, 3 Refill(s), called to pharmacy (Rx) Start Date: 04/10/15 Status: OrderedReglan 10 mg oral tablet 10 mg, Oral, Daily, # 30 tabs, 3 Refill(s), Pharmacy: [facility], 10 mg Oral Daily Start Date: 03/22/15 Status: OrderedtraZODone 50 mg oral tablet 50 mg 1 tabs, Oral, Bedtime (once a day), # 30 tabs, 0 Refill(s), Pharmacy: [facility], 1 tabs Oral Bedtime (once [...] q24hr, # 30 tabs, 0 Refill(s), Pharmacy: [facility], 1 tabs Oral q24hr Start Date: 05/10/15 Status: OrderedZoloft 100 mg oral tablet 200 mg 2 tabs, Oral, Daily, # 60 tabs, 3 Refill(s), Pharmacy: [facility], 2 tabs Oral Daily,x30 days Start Date: 06/19/15 Stop Date: 10/17/15 Status: Ordered Results No data available for this section Immunizations Vaccine Date Refusal Reason influenza virus vaccine, inactivated1 05/24/15 influenza virus vaccine, inactivated 06/14/14 pneumococcal 23-polyvalent vaccine2 01/28/14 1Early/Late Reason: Other : DID NOT CROSS [id number]/Late Reason: Other : STATUS Procedures Procedure Date Related Diagnosis Body Site Open Reduction Internal Fixation Ankle (Left)1 11/01/14 Adrenalectomy Appendectomy Cholecystectomy Hysterectomy Total knee arthroplasty 1auto-populated from documented surgical case Social History Social History Type Response Smoking Status Never smoker Assessment and Plan Extracted from: Title: Office Visit Note: DM Author: Friend, Yue Vasquez DO Date: Assessment/Plan Diabetes We made sure pharmacy had Lantus for Heriberto before she left the clinic. I gave her a low dose insulin sliding scale and reviewed it at length with her. I want her back in the office in 1 claudia h to review logs with Dr Canas. I am hoping we will be able to titrate her off insulin and back on oral medications. Insomnia Will try lunesta. I doubt her insurance will cover. If not she may increase her trazadone to 1.5 tabs (150 mg tabs). Is not to take both medications simultaneously. Orders: eszopiclone, 1 mg 1 tabs, Oral, Bedtime (once a day), as needed for insomnia, # 30 tabs, 5 Refill(s) I discussed the patient with the preceptor. FU in 1 mo for DM. I discussed the patient with the resident, reviewed the chart, and concur with the assessment and plan as above. Ileana Ngo MD, MMM, FAAFP
--- OUTSIDE RECORDS SUMMARY | 2017-10-25 21:17 | External Medical Summary | Referral Summary ---
:1945 [facility] Address [address] [place] [address] Care Team Providers Name Role Phone Josh Canas Primary Care Physician Encounter VC Date(s): 01/08/15 - 01/08/15 [facility] [address] [place] [address] [place] Discharge Disposition: 01-Home or Self Care [...] At Risk for Activity Intolerance Plan of Jind3Faza problem was added by Discern Expert.3Problem added automatically by system based on initiation of At Risk for Infection in Nutrition Planof Hhsa6Gsqjhkz added automatically by system based on initiation of Risk for Injury Plan of Qnkv9Ldjusly added automatically by system based on initiation of At Risk for Unstable Blood Glucose Planof Pkxq4Odgypbc added automatically by system based on initiation of Knowledge Deficit Plan of Ybzm7Pxvovce added automatically by system based on initiation [...] BID, # 60 tabs, 3 Refill(s), Pharmacy: [facility], 1 tabs Oral BID Start Date: 06/05/15 Status: Orderedmetoprolol tartrate 25 mg oral tablet 25 mg 1 tabs, Oral, BID, # 60 tabs, 0 Refill(s), Pharmacy: [facility] Start Date: 07/16/15 Status: OrderedNovoLOG 100 units/mL subcutaneous solution 6 units, SubCutaneous, TIDAC, # 15 mL, 3 Refill(s), called to pharmacy (Rx) Start Date: 04/10/15 Status: OrderedReglan 10 mg oral tablet 10 mg, Oral, Daily, # 30 tabs, 3 Refill(s), Pharmacy: [facility], 10 mg Oral Daily Start Date: 03/22/15 Status: OrderedtraZODone 50 mg oral tablet 50 mg 1 tabs, Oral, Bedtime (once a day), # 30 tabs, 0 Refill(s), Pharmacy: [facility], 1 tabs Oral Bedtime (once a day) Start Date: 05/10/15 Status: OrderedVoltaren 1% topical gel 1 deric, Topical, QID, as needed for pain, # 100 g, 0 Refill(s) Start Date: 07/14/15 Status: OrderedWellbutrin XL 150 mg/24 hours oral tablet, extended release 150 mg 1 tabs, Oral, q24hr, # 30 tabs, 0 Refill(s), Pharmacy: [facility], 1 tabs Oral q24hr Start Date: 05/10/15 Status: OrderedZoloft 100 mg oral tablet 200 mg 2 tabs, Oral, Daily, # 60 tabs, 3 Refill(s), Pharmacy: [facility], 2 tabs Oral Daily,x30 days Start Date: 06/19/15 Stop Date: 10/17/15 Status: Ordered Results No data available for this section Immunizations Vaccine Date Refusal Reason influenza virus vaccine, inactivated1 05/24/15 influenza virus vaccine, inactivated 06/14/14 pneumococcal 23-polyvalent vaccine2 01/28/14 1Early/Late Reason: Other : DID NOT CROSS [id number]/Late Reason: Other : STATUS Procedures Procedure Date Related Diagnosis Body Site Open Reduction Internal Fixation Ankle (Left)1 11/01/14 Adrenalectomy Appendectomy Cholecystectomy Hysterectomy Total knee arthroplasty 1auto-populated from documented surgical case Social History Social History Type Response Smoking Status Never smoker Assessment and Plan No data available for this section
--- OUTSIDE RECORDS SUMMARY | 2017-10-25 21:17 | External Medical Summary | Referral Summary ---
:1945 Author Care Team Providers Name Role Phone FriendYue Primary Care Physician Encounter VC [facility] [id number] Date(s): 11/30/14 - 11/30/14 Via [facility], [facility] Medicine [facility] [place] [address] Discharge Diagnosis: Encounter for pain management counseling Discharge Disposition: Home or Self Care Attending Physician: Helio Grover MD Admitting Physician: Yue Ruby DO Vital Signs Most recent to oldest [Reference Range]: 1 Temperature Oral [35.8-37.3 degC] 36.1 degC (11/30/14 3:13 PM) Peripheral Pulse Rate [60-100 bpm] 72 bpm (11/30/14 3:13 PM) Respiratory Rate [14-20 br/min] 18 br/min (11/30/14 3:13 PM) Blood Pressure [90-140/60-90 mmHg] 120/60 mmHg (11/30/14 3:13 PM) Problem List Condition Effective Dates Status Health Status Informant Acute pain(Confirmed) Active Anxiety(Confirmed) Active At risk for activity Active intolerance(Confirmed)1 At risk for infection(Confirmed)2 Active At risk for injury(Confirmed)3 Active Chronic back pain(Confirmed) Active Back pain, chronic(Confirmed) Active Depression(Confirmed) Active Diabetes(Confirmed) Active patient Heart disease(Confirmed) Active patient LBP (low back pain)(Confirmed) Active Depression with anxiety(Confirmed) Active Chronic insomnia(Confirmed) Active Tissue perfusion Active alteration(Confirmed)4 1Problem added automatically by system based on initiation of At Risk for Activity Intolerance Plan of Cgfb4Cftttss added automatically by system based on initiation of At Risk for Infection in Nutrition Planof Onjm6Hrbltps added automatically by system based on initiation of Risk for Injury Plan of Palj2Lcedknf added automatically by system based on initiation of Tissue Perfusion Cerebral Plan of Care Allergies, Adverse Reactions, Alerts Substance Reaction Severity Status Macrodantin Convulsion Severe Active penicillin Adverse Reaction Active Medications amitriptyline 50 mg oral tablet 1 tabs, Oral, Bedtime (once a day), # 30 tabs, 4 Refill(s), Pharmacy: [facility], 1 tabsOral Bedtime (once a day) Start Date: 11/30/14 Status: Orderedaspirin 81 mg oral tablet 1 tabs, Oral, Daily, # 30 tabs, 0 Refill(s), other reason (Rx) Start Date: 06/14/14 Status: Orderedatorvastatin 40 mg oral tablet 1 tabs, Oral, Bedtime (once a day), # 30 tabs, 11 Refill(s), Pharmacy: [facility], 1 tabs Oral Bedtime (once a day) Start Date: 07/28/14 Status: OrderedBrilinta 90 mg oral tablet 1 tabs, Oral, BID, 0 Refill(s) Start Date: 01/31/14 Status: OrderedbusPIRone 15 mg oral tablet 1 tabs, Oral, BID, May take up to TID., # 90 tabs, 11 Refill(s), Pharmacy: [facility], 1tabs Oral BID,Instr:May take up to TID. Special Instructions: May take up to TID. Start Date: 10/20/14 Status: Orderedmagnesium oxide 1 tabs, Oral, Daily, 0 Refill(s) Start Date: 11/01/14 Status: OrderedmetFORMIN 1000 mg oral tablet 1 tabs, Oral, BID, # 60 tabs, 2 Refill(s), Pharmacy: [facility], 1 tabs Oral BID Start Date: 08/19/14 Status: Orderedmetoclopramide 10 mg, Oral, TID, as needed for nausea/vomiting, 0 Refill(s) Start Date: 01/28/14 Status: Orderedmetoprolol tartrate 25 mg oral tablet 1 tabs, Oral, BID, 0 Refill(s) Start Date: 01/31/14 Status: OrderedNorco 10 mg-325 mg oral tablet 1 tabs, Oral, q4hr, as needed for pain, # 120 tabs, 0 Refill(s) Start Date: 11/11/14 Status: Orderedsertraline 100 mg oral tablet 1.5 tabs, Oral, Daily, # 135 tabs, 3 Refill(s), Pharmacy: [facility] , 1.5 tabs Oral Daily Start Date: 06/14/14 Status: OrderedWalker (DME) DME Item FWW/Dx: L nelly ankle fracture S/P ORIF/ Duration: 20 weeks/ H: 172.5 cm W:68 kg, See Instructions, # 1 Each, 0 Refill(s), Supply Special Instructions: FWW/Dx: L nelly ankle fracture S/P ORIF/ Duration: 20 weeks/ H: 172.5 cm W:68kg Start Date: 11/03/14 Status: Ordered Results No data available for this section Immunizations Vaccine Date Refusal Reason influenza virus vaccine, inactivated 06/14/14 pneumococcal 23-polyvalent [...]
--- OUTSIDE RECORDS SUMMARY | 2017-10-25 21:17 | External Medical Summary | Referral Summary ---
:1945 [facility] Address [address] [place] [address] Care Team Providers Name Role Phone Josh Canas Primary Care Physician Encounter [facility] Date(s): 01/11/15 - 01/11/15 [facility] [address] [place] [address] [place] Discharge Disposition: 01-Home or Self Care [...] At Risk for Activity Intolerance Plan of Mwjg0Zgag problem was added by Discern Expert.3Problem added automatically by system based on initiation of At Risk for Infection in Nutrition Planof Qvqr1Paiktqa added automatically by system based on initiation of Risk for Injury Plan of Bnfd2Briddvl added automatically by system based on initiation of At Risk for Unstable Blood Glucose Planof Kvhu6Nwfumws added automatically by system based on initiation of Knowledge Deficit Plan of Aghe9Bvvqxkn added automatically by system based on initiation [...] day), # 30 tabs, 0 Refill(s), Pharmacy: [facility], 1 tabs Oral Bedtime (once [...] 1Early/Late Reason: Other : DID NOT CROSS [id number]/Late Reason: Other : STATUS Procedures Procedure Date Related Diagnosis Body Site Open Reduction Internal Fixation Ankle (Left)1 11/01/14 Adrenalectomy Appendectomy Cholecystectomy Hysterectomy Total knee arthroplasty 1auto-populated from documented surgical case Social History Social History Type Response Smoking Status Never smoker Assessment and Plan No data available for this section
--- OUTSIDE RECORDS SUMMARY | 2017-10-25 21:17 | External Medical Summary | Referral Summary ---
:1945 Author Organization Via [facility] Address [address] [place] [address] Care Team Providers Name Role Phone Josh Canas Primary Care Physician Encounter VC Date(s): 04/16/15 - 04/16/15 [facility] [address], [place] [address] Discharge Diagnosis: Migraine Discharge Diagnosis: Depression Discharge Diagnosis: Anxiety Final: Migraine without aura, without mention of intractable migraine, without mention of status migrainosus Final: ANXIETY STATE, UNSPECIFIED Final: DEPRESSIVE DISORDER, NOT ELSEWHERE CLASSIFIED Discharge Disposition: 01-Home or Self Care Attending Physician: Colten Huggins MD Admitting Physician: Colten Huggins MD Vital Signs Most recent to oldest [Reference Range]: 1 Temperature Oral [35.8-37.3 degC] 36.4 degC (04/16/15 11:21 AM) Peripheral Pulse Rate [60-100 bpm] 73 bpm (04/16/15 3:48 PM) Heart Rate Monitored [60-100 bpm] 77 bpm (04/16/15 2:12 PM) Respiratory Rate [14-20 br/min] 16 br/min (04/16/15 3:48 PM) Blood Pressure [90-140/60-90 mmHg] 176/88 mmHg *HI* (04/16/15 3:48 PM) Mean Arterial Pressure, Cuff 110 mmHg (04/16/15 2:12 PM) SpO2 97 % (04/16/15 3:48 PM) Problem List Condition Effective Dates Status [...] At Risk for Activity Intolerance Plan of Abje7Ljew problem was added by Discern Expert.3Problem added automatically by system based on initiation of At Risk for Infection in Nutrition Planof Krov0Tjyipdn added automatically by system based on initiation of Risk for Injury Plan of Soyx8Vrwbidc added automatically by system based on initiation of At Risk for Unstable Blood Glucose Planof Ozgq6Cfffnrd added automatically by system based on initiation of Bowel Dysfunction Plan of Rfwc7Btabp from NOT FOUND collected 09/07/15 17:48:00 [id number] added automatically by system based on initiation of Fluid Volume Imbalance Plan of Dcrx3Iybxgib added automatically by system based on initiation of Knowledge Deficit Plan of Swnn37Izppaix added automatically by system based on initiation [...] 40 tabs, 3 Refill(s), Pharmacy : [facility], 1 tabs Oral QID,PRN:as needed [...] # 15 mL, 3 Refill(s), Pharmacy: [facility], 30 units SubCutaneous Bedtime (once a day) Start Date: 07/24/15 Status: Orderedmetoprolol tartrate 25 mg oral tablet 25 mg 1 tabs, Oral, BID, # 60 tabs, 0 Refill(s), Pharmacy: [facility] Start Date: 07/16/15 Status: OrderedMiraLax 17 g 1 packets, Oral, Daily, Constipation, 0 Refill(s) Start Date: 09/14/15 Status: OrderedNovoLOG 100 units/mL subcutaneous solution 10 units, SubCutaneous, TIDAC, # 15 mL, 3 Refill(s), Pharmacy: [facility], 10 units SubCutaneous TIDAC Start Date: 07/24/15 Status: OrderedZoloft 100 mg oral tablet 200 mg 2 tabs, Oral, Daily, # 60 tabs, 3 Refill(s), Pharmacy: [facility], 2 tabs Oral Daily,x30 days Start Date: 06/19/15 Stop Date: 10/17/15 Status: Ordered Results No data available for this section Immunizations Vaccine Date Refusal Reason influenza virus vaccine, inactivated1 05/24/15 influenza virus vaccine, inactivated 06/14/14 pneumococcal 23-polyvalent vaccine2 01/28/14 1Early/Late Reason: Other : DID NOT CROSS [id number]/Late Reason: Other : STATUS Procedures Procedure Date Related Diagnosis Body Site Open Reduction Internal Fixation Ankle (Left)1 11/01/14 Adrenalectomy Appendectomy Cholecystectomy Hysterectomy Provision of stents or bite blocks Total knee arthroplasty 1auto-populated from documented surgical case Social History Social History Type Response Smoking Status Never smoker Assessment and Plan No data available for this section
--- OUTSIDE RECORDS SUMMARY | 2017-10-25 21:18 | External Medical Summary | Referral Summary ---
:1945 Author Organization [facility] Address [address] [place] [address] Care Team Providers Name Role Phone Josh Canas Primary Care Physician Encounter VC Date(s): 07/24/15 - 07/24/15 [facility] [address] [place] [address] [place] Discharge Diagnosis: Transaminitis Discharge Diagnosis: LAVELLE (acute kidney injury) Discharge Diagnosis: Diabetes mellitus type 2, uncontrolled, with complications Discharge Diagnosis: Hypertension Discharge Diagnosis: Depression Discharge Diagnosis: LBP (low back pain) Discharge Disposition: 01-Home or Self Care Attending Physician: Killian Cordero MD Admitting Physician: Josh Canas DO Vital Signs Most recent to oldest [Reference Range]: 1 Temperature Oral [35.8-37.3 degC] 36.3 degC (07/24/15 1:08 PM) Peripheral Pulse Rate [60-100 bpm] 68 bpm (07/24/15 1:08 PM) Respiratory Rate [14-20 br/min] 20 br/min (07/24/15 1:08 PM) Blood Pressure [90-140/60-90 mmHg] 138/70 mmHg (07/24/15 1:08 PM) Problem List Condition Effective Dates Status [...] At Risk for Activity Intolerance Plan of Hobt6Slqh problem was added by Discern Expert.3Problem added automatically by system based on initiation of At Risk for Infection in Nutrition Planof Wmkr8Rqujmsz added automatically by system based on initiation of Risk for Injury Plan of Qbjg1Fbhjvoo added automatically by system based on initiation of At Risk for Unstable Blood Glucose Planof Bwpu1Msjrmbp added automatically by system based on initiation of Knowledge Deficit Plan of Weim2Vfpgpbk added automatically by system based on initiation [...] # 40 tabs, 0 Refill(s), Pharmacy : [facility], 1 tabs Oral QID,PRN:as needed for anxiety Start Date: 07/24/15 Status: OrderedLevemir 100 units/mL subcutaneous solution 30 units, SubCutaneous, Bedtime (once a day), # 15 mL, 3 Refill(s), Pharmacy: [facility], 30 units SubCutaneous Bedtime (once a day) Start Date: 07/24/15 Status: OrderedmetFORMIN 1000 mg oral tablet 1,000 mg 1 tabs, Oral, BID, # 60 tabs, 3 Refill(s), Pharmacy: [facility], 1 tabs Oral BID Start Date: 06/05/15 Status: Orderedmetoprolol tartrate 25 mg oral tablet 25 mg 1 tabs, Oral, BID, # 60 tabs, 0 Refill(s), Pharmacy: [facility] Start Date: 07/16/15 Status: OrderedMiscellaneous [...] TIDAC, # 15 mL, 3 Refill(s), Pharmacy: [facility], 10 units SubCutaneous TIDAC Start Date: 07/24/15 Status: OrderedReglan 10 mg oral tablet 10 mg, Oral, Daily, # 30 tabs, 3 Refill(s), Pharmacy: [facility], 10 mg Oral Daily Start Date: 03/22/15 Status: OrderedtraZODone 50 mg oral tablet 50 mg 1 tabs, Oral, Bedtime (once a day), # 30 tabs, 0 Refill(s), Pharmacy: [facility], 1 tabs Oral Bedtime (once a day) Start Date: 05/10/15 Status: OrderedVoltaren 1% topical gel 1 deric, Topical, QID, as needed for pain, # 100 g, 0 Refill(s) Start Date: 07/14/15 Status: OrderedWellbutrin XL 150 mg/24 hours oral tablet, extended release 150 mg 1 tabs, Oral, q24hr, # 30 tabs, 0 Refill(s), Pharmacy: [facility], 1 tabs Oral q24hr Start Date: 05/10/15 Status: OrderedZoloft 100 mg oral tablet 200 mg 2 tabs, Oral, Daily, # 60 tabs, 3 Refill(s), Pharmacy: [facility], 2 tabs Oral Daily,x30 days Start Date: 06/19/15 Stop Date: 10/17/15 Status: Ordered Results Chemistry Most recent to oldest [Reference Range]: 1 Sodium Lvl [135-144 mEq/L] 137 mEq/L (07/24/15 2:52 PM) Potassium Lvl [3.5-5.2 mEq/L] 5.2 mEq/L (07/24/15 2:52 PM) Chloride [99-111 mEq/L] 107 mEq/L (07/24/15 2:52 PM) CO2 [22-31 mEq/L] 20 mEq/L *LOW* (07/24/15 2:52 PM) AGAP [3-20] 10 (07/24/15 2:52 PM) BUN [10-20 mg/dL] 27 mg/dL *HI* (07/24/15 2:52 PM) Glucose Lvl [70-99 mg/dL] 103 mg/dL *HI* (07/24/15 2:52 PM) Creatinine Lvl [0.57-1.11 mg/dL] 1.07 mg/dL (07/24/15 2:52 PM) eGFR [>60 mL/min] 51 mL/min 1 *ABN* (07/24/15 2:52 PM) Calcium Lvl [8.9-10.5 mg/dL] 9.6 mg/dL (07/24/15 2:52 PM) Albumin Lvl [3.4-4.8 gm/dL] 4.4 gm/dL (07/24/15 2:52 PM) Total Protein [6.2-8.1 gm/dL] 6.6 gm/dL (07/24/15 12:01 AM) Globulin [1.8-4.0 gm/dL] 2.4 gm/dL (07/24/15 12:01 AM) ALT [0-55 U/L] 16 U/L (07/24/15 12:01 AM) AST [5-34 U/L] 15 U/L (07/24/15 12:01 AM) Alk Phos [40-150 U/L] 84 U/L (07/24/15 12:01 AM) Bili Total [0.2-1.2 mg/dL] 0.6 mg/dL (07/24/15 12:01 AM) Phosphorus [2.3-4.7 mg/dL] 3.9 mg/dL (07/24/15 2:52 PM) 1Result Comment: Multiply eGFR results by 1.21 for race.Urinalysis Most recent to oldest [Reference Range]: 1 UA WBC [0-4] 5-10 *ABN* (07/24/15 12:01 AM) UA RBC [0-4] 0-4 (07/24/15 12:01 AM) Epithelial Cells 5-10 (07/24/15 12:01 AM) UA Hyal Cast [0-3] 4-6 *ABN* (07/24/15 12:01 AM) Immunizations Vaccine Date Refusal Reason influenza virus vaccine, inactivated1 05/24/15 influenza virus vaccine, inactivated 06/14/14 pneumococcal 23-polyvalent vaccine2 01/28/14 1Early/Late Reason: Other : DID NOT CROSS [id number]/Late Reason: Other : STATUS Procedures Procedure Date Related Diagnosis Body Site Open Reduction Internal Fixation Ankle (Left)1 11/01/14 Adrenalectomy Appendectomy Cholecystectomy Hysterectomy Total knee arthroplasty 1auto-populated from documented surgical case Social History Social History Type Response Smoking Status Never smoker Assessment and Plan No data available for this section
--- OUTSIDE RECORDS SUMMARY | 2017-10-25 21:18 | External Medical Summary | Referral Summary ---
:1945 Author Organization [facility] Address [address] [place] [address] Care Team Providers Name Role Phone anibal Josh Shaista Primary Care Physician Encounter VC Date(s): 05/09/16 - 05/09/16 [facility] [address] [place] [address] [place] Discharge Diagnosis: Ankle sprain Discharge Diagnosis: Diabetes Discharge Disposition: 01-Home or Self Care Attending Physician: Comfort Davila MD Admitting Physician: Mary Lou Wiley MD Vital Signs Most recent to oldest [Reference Range]: 1 Temperature Oral [35.8-37.3 degC] 36.7 degC (05/09/16 10:44 AM) Apical Heart Rate [60-100 bpm] 80 bpm (05/09/16 10:44 AM) Respiratory Rate [14-20 br/min] 18 br/min (05/09/16 10:44 AM) Blood Pressure [90-140/60-90 mmHg] 122/70 mmHg (05/09/16 10:44 AM) Problem List Condition Effective Dates Status [...] 1Urine from NOT FOUND collected 04/13/16 12:36:00 [id number] added automatically by system based on initiation of At Risk for Activity Intolerance Plan of Fhdu1Cxyw problem was added by Discern Expert.4Problem added automatically by system based on initiation of At Risk for Infection in Nutrition Planof Vpbq7Frlwewv added automatically by system based on initiation of Risk for Injury Plan of Coxo5Bixejdi added automatically by system based on initiation of At Risk for Unstable Blood Glucose Planof Phfg4Frstsij added automatically by system based on initiation of Bowel Dysfunction Plan of Fjrs4Chpfo from NOT FOUND collected 09/07/15 17:48:00 RDT9Jzduhyq added automatically by system based on initiation of Fluid Volume Imbalance Plan of Oiig72Lewvnqd added automatically by system based on initiation of Knowledge Deficit Plan of Zwbk40Ykafbat added automatically by system based on initiation [...] 11/22/15 Status: OrderedLevemir 100 units/mL subcutaneous solution 30 units, SubCutaneous, Bedtime (once a day), please give patient 28 day supply , # 10 mL, 0 Refill(s), Pharmacy: [facility], 30 units SubCutaneous Bedtime (once a day),Instr:please [...] BID, # 120 tabs, 6 Refill(s), Pharmacy: [facility], 2 tabs OralBID,x30 days,Instr:Take with meals , start with 1... Start Date: 11/22/15 Stop Date: 06/19/16 Status: OrderedNovoLOG 10 units, SubCutaneous, TIDAC, 0 Refill(s) Start Date: 11/01/15 Status: OrderedNovoLOG 100 units/mL subcutaneous solution 8 units, SubCutaneous, TIDAC, please give patient 28 day supply, # 10 mL, 0 Refill(s), Pharmacy: [facility], 8 units SubCutaneous TIDAC,Instr: please give patient 28 day supply Start Date: 05/09/16 Status: OrderedReglan 10 mg oral tablet 10 mg 1 tabs, Oral, QID, # 120 tabs, 0 Refill(s), Pharmacy: [facility], 1 tabs Oral QID Start Date: 11/01/15 Status: Orderedsertraline 100 mg oral tablet See Instructions, TAKE TWO TABLETS BY MOUTH ONCE DAILY, # 60 tabs, 2 Refill(s), eRx: [facility], TAKE TWO TABLETS BY MOUTH ONCE DAILY Start Date: 02/28/16 Status: Ordered Results No data available for this section Immunizations Vaccine Date Refusal Reason influenza virus vaccine, inactivated 05/09/16 influenza virus vaccine, inactivated1 05/24/15 influenza virus vaccine, inactivated 06/14/14 pneumococcal 23-polyvalent vaccine2 01/28/14 1Early/Late Reason: Other : DID NOT CROSS [id number]/Late Reason: Other : STATUS Procedures Procedure Date Related Diagnosis Body Site Open Reduction Internal Fixation Ankle (Left)1 11/01/14 Adrenalectomy Appendectomy Cholecystectomy Hysterectomy Provision of stents or bite blocks Total knee arthroplasty 1auto-populated from documented surgical case Social History Social History Type Response Smoking Status Never smoker Assessment and Plan Extracted from: Title: Ambulatory Patient Education Author: Lesvia Morales DO Date: 05/09/16 Family Medicine Ankle Sprain An ankle sprain is an injury to the strong, fibrous tissues (ligaments) that hold the bones of your ankle joint together. CAUSES An ankle sprain is usually caused by a fall or by twisting your ankle. Ankle sprains most commonly occur when you step on the outer edge of your foot, and your ankle turns inward. People who participate in sports are more prone to these types of injuries. SYMPTOMS Pain in your ankle. The pain may be present at rest or only when you are trying to stand or walk. Swelling. Bruising. Bruising may develop immediately or within 1 to 2 days after your injury. Difficulty standing or walking, particularly when turning corners or changing directions. DIAGNOSIS Your caregiver will ask you details about your injury and perform a physical exam of your ankle to determine if you have an ankle sprain. During the physical exam, your caregiver will press on and apply pressure to specific areas of your foot and ankle. Your caregiver will try to move your ankle in certain ways. An X-ray exam may be done to be sure a bone was not broken or a ligament did not separate from one of the bones in your ankle (avulsion fracture). TREATMENT Certain types of braces can help stabilize your ankle. Your caregiver can make a recommendation for this. Your caregiver may recommend the use of medicine for pain. If your sprain is severe, your caregi pierre may refer you to a surgeon who helps to restore function to parts of your skeletal system (orthopedist) or a physical therapist. HOME CARE INSTRUCTIONS Apply ice to your injury for 12 days or as directed by your caregiver. Applying ice helps to reduce inflammation and pain. Put ice in a plastic bag. Place a towel between your skin and the bag. Leave the ice on for 15-20 minutes at a time, every 2 hours while you are awake. Only take lbpu-bfp-acmpluk or prescription medicines for pain, discomfort, or fever as directed by your caregiver. Elevate your injured ankle above the level of your heart as much as possible for 23 days. If your caregiver recommends crutches, use them as instructed. Gradually put weight on the affected ankle. Continue to use crutches or a cane until you can walk without feeling pain in your ankle. If you have a plaster splint, wear the splint as directed by your caregiver. Do not rest it on anything harder than a pillow for the first 24 hours. Do not put weight on it. Do not get it wet. You may take it off to take a shower or bath. You may have been given an elastic bandage to wear around your ankle to provide support. If the elastic bandage is too tight (you have numbness or tingling in your foot or your foot becomes cold and blue), adjust the bandage to make it comfortable. If you have an air splint, you may blow more air into it or let air out to make it more comfortable. You may take your splint off at night and before taking a shower or bath. Wiggle your toes in the splint several times per day to decrease swelling. SEEK MEDICAL CARE IF: You have rapidly increasing bruising or swelling. Your toes feel extremely cold or you lose feeling in your foot. Your pain is not relieved with medicine. SEEK IMMEDIATE MEDICAL CARE IF: Your toes are numb or blue. You have severe pain that is increasing. MAKE SURE YOU: Understand these instructions. Will watch your condition. Will get help right away if you are not doing well or get worse. This information is not intended to replace advice given to you by your health care provider. Make sure you discuss any questions you have with your health care provider. Document Released: 08/04/2006 Document Revised: 2015 Document Reviewed: 08/15/2012 Exit[employer] Patient Information 2016 [employer]. No follow up information was provided. Extracted from: Title: OV-DM Check Author: Lesvia Morales DO Date: 05/09/16 Assessment/Plan TII DM HgA1c 7.7 on 04/26, improved from 9.1 on 10/31 Pt has rx for Metformin, but has not been taking it BUN/Cr: 15/09.34 on 04/26, it appears that patient has hx. of LAVELLE and possibly CKD Consider restarting Metformin (risk of poor BG control vs. kidney function), will talk with Dr. Canas as he is her PCP and hasbetrina followingher kidney function, will inquire as to whether he chiquis es to re-start the Metformin. Will send him a message and have him call her with instructions. On Novolog and Levemir, re-fills today Did not bring BG log today, will bring next time Ankle Injury Pt fell and twisted ankle, went to ED 04/23, seen by Dr. Owen Canas for this problem on 04/24 Pain and swelling are improving Reassurance given that ankle sprains often take time to heal, advised to elevate, use ice, and activity to tolerance Shoulder Pain Pt instructed to schedule OMT appt. for recurrent shoulder pain I discussed the patient with the preceptor, Dr. Davila.The preceptor also was present for the phelps portion of the encounter. Addendum by Comfort Davila MD on I discussed the patient with the May 09, 2016 15:09:46 CDT Resident/VP GENETIC/PA/RN/PharmD, reviewed the chart and was physically present during the critical portion of the provided service, and concur with the assessment and plan as above. ~Comfort Davila MD
--- OUTSIDE RECORDS SUMMARY | 2017-10-25 21:18 | External Medical Summary | Referral Summary ---
:1945 [facility] Address [address] [place] [address] Care Team Providers Name Role Phone Josh Canas Primary Care Physician Encounter VC Date(s): 01/10/15 - 01/10/15 [facility] [address] [place] [address] [place] Discharge Disposition: 01-Home or Self Care [...] At Risk for Activity Intolerance Plan of Qpqf8Pado problem was added by Discern Expert.3Problem added automatically by system based on initiation of At Risk for Infection in Nutrition Planof Weip1Aapzdau added automatically by system based on initiation of Risk for Injury Plan of Veit0Islaaut added automatically by system based on initiation of At Risk for Unstable Blood Glucose Planof Ueja0Mladwhb added automatically by system based on initiation of Knowledge Deficit Plan of Ofbj1Eylshwz added automatically by system based on initiation [...] BID, # 60 tabs, 3 Refill(s), Pharmacy: [facility], 1 tabs Oral BID Start Date: 06/05/15 Status: Orderedmetoprolol tartrate 25 mg oral tablet 25 mg 1 tabs, Oral, BID, # 60 tabs, 0 Refill(s), Pharmacy: [facility] Start Date: 07/16/15 Status: OrderedNovoLOG 100 units/mL subcutaneous solution 6 units, SubCutaneous, TIDAC, # 15 mL, 3 Refill(s), called to pharmacy (Rx) Start Date: 04/10/15 Status: OrderedReglan 10 mg oral tablet 10 mg, Oral, Daily, # 30 tabs, 3 Refill(s), Pharmacy: [facility], 10 mg Oral Daily Start Date: 03/22/15 Status: OrderedtraZODone 50 mg oral tablet 50 mg 1 tabs, Oral, Bedtime (once a day), # 30 tabs, 0 Refill(s), Pharmacy: [facility], 1 tabs Oral Bedtime (once a day) Start Date: 05/10/15 Status: OrderedVoltaren 1% topical gel 1 deric, Topical, QID, as needed for pain, # 100 g, 0 Refill(s) Start Date: 07/14/15 Status: OrderedWellbutrin XL 150 mg/24 hours oral tablet, extended release 150 mg 1 tabs, Oral, q24hr, # 30 tabs, 0 Refill(s), Pharmacy: [facility], 1 tabs Oral q24hr Start Date: 05/10/15 Status: OrderedZoloft 100 mg oral tablet 200 mg 2 tabs, Oral, Daily, # 60 tabs, 3 Refill(s), Pharmacy: [facility], 2 tabs Oral Daily,x30 days Start Date: 06/19/15 Stop Date: 10/17/15 Status: Ordered Results No data available for this section Immunizations Vaccine Date Refusal Reason influenza virus vaccine, inactivated1 05/24/15 influenza virus vaccine, inactivated 06/14/14 pneumococcal 23-polyvalent vaccine2 01/28/14 1Early/Late Reason: Other : DID NOT CROSS [id number]/Late Reason: Other : STATUS Procedures Procedure Date Related Diagnosis Body Site Open Reduction Internal Fixation Ankle (Left)1 11/01/14 Adrenalectomy Appendectomy Cholecystectomy Hysterectomy Total knee arthroplasty 1auto-populated from documented surgical case Social History Social History Type Response Smoking Status Never smoker Assessment and Plan No data available for this section
--- OUTSIDE RECORDS SUMMARY | 2017-10-25 21:18 | External Medical Summary | Referral Summary ---
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 Discharge Diagnosis: Diabetes mellitus type 2, uncontrolled, with complications Discharge Disposition: 01-Home or Self Care Attending Physician: Karyn Ngo MD Admitting Physician: Josh Canas DO Vital Signs Most recent to oldest [Reference Range]: 1 Temperature Oral [35.8-37.3 degC] 36.5 degC (11/01/15 1:49 PM) Peripheral Pulse Rate [60-100 bpm] 90 bpm (11/01/15 1:49 PM) Respiratory Rate [14-20 br/min] 20 br/min (11/01/15 1:49 PM) Blood Pressure [90-140/60-90 mmHg] 110/70 mmHg (11/01/15 1:49 PM) Problem List Condition Effective Dates Status [...] At Risk for Activity Intolerance Plan of Xzaw9Leak problem was added by Discern Expert.3Problem added automatically by system based on initiation of At Risk for Infection in Nutrition Planof Qtiw9Iqubayq added automatically by system based on initiation of Risk for Injury Plan of Momw6Qvgtzvx added automatically by system based on initiation of At Risk for Unstable Blood Glucose Planof Xxhb5Qtqzjrp added automatically by system based on initiation of Bowel Dysfunction Plan of Tvtv8Ojpoj from NOT FOUND collected 09/07/15 17:48:00 BIC5Qwzpopy added automatically by system based on initiation of Fluid Volume Imbalance Plan of Heeg8Mqanuby added automatically by system based on initiation of Knowledge Deficit Plan of Qela40Sckvijd added automatically by system based on initiation [...] tabs, 3 Refill(s), Pharmacy : [facility], 1 tabs Oral QID,PRN:as needed [...] 15 mL, 3 Refill(s), Pharmacy: [facility], 30 units SubCutaneous Bedtime (once a day) Start Date: 07/24/15 Status: Orderedmetoprolol tartrate 25 mg oral tablet 25 mg 1 tabs, Oral, BID, # 60 tabs, 0 Refill(s), Pharmacy: [facility] Start Date: 07/16/15 Status: OrderedMiraLax 17 g 1 packets, Oral, Daily, Constipation, 0 Refill(s) Start Date: 09/14/15 Status: OrderedNovoLOG 8 units, SubCutaneous, TIDAC, 0 Refill(s) Start Date: 11/01/15 Status: OrderedNovoLOG 100 units/mL subcutaneous solution 10 units, SubCutaneous, TIDAC, # 15 mL, 3 Refill(s), Pharmacy: [facility], 10 units SubCutaneous TIDAC Start Date: 07/24/15 Status: OrderedReglan 10 mg oral tablet 10 mg 1 tabs, Oral, QID, # 120 tabs, 0 Refill(s), Pharmacy: [facility], 1 tabs Oral QID Start Date: 11/01/15 Status: OrderedZoloft 100 mg oral tablet 200 mg 2 tabs, Oral, Daily, # 60 tabs, 3 Refill(s), Pharmacy: [facility], 2 tabs Oral Daily,x30 days Start Date: 06/19/15 Stop Date: 10/17/15 Status: Ordered Results Hematology Most recent to oldest [Reference Range]: 1 WBC [4.8-10.8 10*3/uL] 8.8 10*3/uL (11/01/15 2:46 PM) RBC [4.00-5.20] 5.19 (11/01/15 2:46 PM) Hgb [12.0-16.0 gm/dL] 13.0 gm/dL (11/01/15 2:46 PM) Hct [37.0-47.0 %] 39.6 % (11/01/15 2:46 PM) MCV [82.0-99.0 fL] 76.3 fL *LOW* (11/01/15 2:46 PM) MCH [27.0-32.0 pg] 25.0 pg *LOW* (11/01/15 2:46 PM) MCHC [32.0-36.0 gm/dL] 32.8 gm/dL (11/01/15 2:46 PM) RDW [11.5-14.5 %] 14.4 % (11/01/15 2:46 PM) Platelet [150-400 10*3/uL] 208 10*3/uL (11/01/15 2:46 PM) MPV [8.8-14.8 fL] 10.3 fL (11/01/15 2:46 PM) Immature Granulocytes [0.0-1.0 %] 0.1 % (11/01/15 2:46 PM) Neutrophils [51-75 %] 58 % (11/01/15 2:46 PM) Lymphocytes [20-46 %] 34 % (11/01/15 2:46 PM) Monocytes [4-11 %] 5 % (11/01/15 2:46 PM) Eosinophils [0-4 %] 2 % (11/01/15 2:46 PM) Basophils [0-2 %] 1 % (11/01/15 2:46 PM) Neutro Absolute [1.90-7.00 10*3] 5.07 10*3 (11/01/15 2:46 PM) Lymph Absolute [0.80-3.30 10*3] 3.00 10*3 (11/01/15 2:46 PM) [place] Absolute [0.30-1.00 10*3] 0.47 10*3 (11/01/15 2:46 PM) Eos Absolute [0.00-0.50 10*3] 0.19 10*3 (11/01/15 2:46 PM) Baso Absolute [0.00-0.20 10*3] 0.05 10*3 (11/01/15 2:46 PM) Chemistry Most recent to oldest [Reference Range]: 1 Sodium Lvl [135-144 mEq/L] 135 mEq/L (11/01/15 2:46 PM) Potassium Lvl [3.5-5.2 mEq/L] 4.9 mEq/L (11/01/15 2:46 PM) Chloride [99-111 mEq/L] 105 mEq/L (11/01/15 2:46 PM) CO2 [22-31 mEq/L] 21 mEq/L *LOW* (11/01/15 2:46 PM) AGAP [3-20] 9 (11/01/15 2:46 PM) BUN [10-20 mg/dL] 26 mg/dL *HI* (11/01/15 2:46 PM) Glucose Lvl [70-99 mg/dL] 230 mg/dL *HI* (11/01/15 2:46 PM) Creatinine Lvl [0.57-1.11 mg/dL] 1.36 mg/dL *HI* (11/01/15 2:46 PM) eGFR [>60 mL/min] 38 mL/min 1 *ABN* (11/01/15 2:46 PM) Calcium Lvl [8.9-10.5 mg/dL] 9.8 mg/dL (11/01/15 2:46 PM) Albumin Lvl [3.4-4.8 gm/dL] 4.4 gm/dL (11/01/15 2:46 PM) Total Protein [6.2-8.1 gm/dL] 6.8 gm/dL (11/01/15 2:46 PM) Globulin [1.8-4.0 gm/dL] 2.4 gm/dL (11/01/15 2:46 PM) ALT [0-55 U/L] 15 U/L (11/01/15 2:46 PM) AST [5-34 U/L] 15 U/L (11/01/15 2:46 PM) Alk Phos [40-150 U/L] 95 U/L (11/01/15 2:46 PM) Bili Total [0.2-1.2 mg/dL] 0.7 mg/dL (11/01/15 2:46 PM) Chol [0-199 mg/dL] 266 mg/dL *HI* (11/01/15 2:46 PM) Trig [0-149 mg/dL] 171 mg/dL *HI* (11/01/15 2:46 PM) HDL [40-84 mg/dL] 72 mg/dL (11/01/15 2:46 PM) LDL [0-130 mg/dL] 160 mg/dL *HI* (11/01/15 2:46 PM) VLDL Cholesterol [0-28 mg/dL] 34 mg/dL *HI* (11/01/15 2:46 PM) Cardiac Risk [0.0-5.0] 3.7 (11/01/15 2:46 PM) TSH with Reflex Free T4 [0.35-4.94] 0.56 (11/01/15 2:46 PM) Hgb A1c [4.1-5.6 %] 9.1 % *HI* (11/01/15 2:46 PM) eAvg Glucose 214.5 mg/dL (11/01/15 2:46 PM) 1Result Comment: Multiply eGFR results by 1.21 for race. Immunizations Vaccine Date Refusal Reason influenza virus vaccine, inactivated1 05/24/15 influenza virus vaccine, inactivated 06/14/14 pneumococcal 23-polyvalent vaccine2 01/28/14 1Early/Late Reason: Other : DID NOT CROSS [id number]/Late Reason: Other : STATUS Procedures Procedure Date Related Diagnosis Body Site Open Reduction Internal Fixation Ankle (Left)1 11/01/14 Adrenalectomy Appendectomy Cholecystectomy Hysterectomy Provision of stents or bite blocks Total knee arthroplasty 1auto-populated from documented surgical case Social History Social History Type Response Smoking Status Never smoker Assessment and Plan No data available for this section
--- OUTSIDE RECORDS SUMMARY | 2017-10-25 21:18 | External Medical Summary | Referral Summary ---
:1945 Author Organization [facility] Address [address] [place] [address] Care Team Providers Name Role Phone Josh Canas Primary Care Physician Encounter VC Date(s): 05/24/15 - 05/24/15 [facility] [address] [place] [address] Discharge Diagnosis: Anxiety Discharge Diagnosis: Diabetes mellitus [...] At Risk for Activity Intolerance Plan of Epds4Xicg problem was added by Discern Expert.3Problem added automatically by system based on initiation of At Risk for Infection in Nutrition Planof Dlqw8Szfvlaa added automatically by system based on initiation of Risk for Injury Plan of Oyel6Zvrtflr added automatically by system based on initiation of At Risk for Unstable Blood Glucose Planof Kvsr9Yhbsoqi added automatically by system based on initiation of Bowel Dysfunction Plan of Eihf8Qewnz from NOT FOUND collected 09/07/15 17:48:00 LYC6Ojvedfo added automatically by system based on initiation of Fluid Volume Imbalance Plan of Xmqq9Biaifrg added automatically by system based on initiation of Knowledge Deficit Plan of Utwg42Hwcmcps added automatically by system based on initiation [...] # 40 tabs, 3 Refill(s), Pharmacy : [facility], 1 tabs Oral QID,PRN:as [...] day), # 15 mL, 3 Refill(s), Pharmacy: [facility], 30 units SubCutaneous Bedtime (once a day) Start Date: 07/24/15 Status: OrderedmetFORMIN 500 mg oral tablet, extended release 1,000 mg 2 tabs, Oral, BID, Take with meals, start with 1 tab BID x 1 week, then 2 tabs qAM and 1tabqPM x1 week, then 2 tabs BID, # 120 tabs, 6 Refill(s), Pharmacy: [facility], 2 tabs OralBID,x30 days,Instr:Take with meals , start with 1... Start Date: 11/22/15 Stop Date: 06/19/16 Status: Orderedmetoprolol tartrate 25 mg oral tablet 25 mg 1 tabs, Oral, BID, # 60 tabs, 0 Refill(s), Pharmacy: [facility] Start Date: 07/16/15 Status: OrderedMiraLax 17 g 1 packets, Oral, Daily, Constipation, 0 Refill(s) Start Date: 09/14/15 Status: OrderedNovoLOG 8 units, SubCutaneous, TIDAC, 0 Refill(s) Start Date: 11/01/15 Status: OrderedReglan 10 mg oral tablet 10 mg 1 tabs, Oral, QID, # 120 tabs, 0 Refill(s), Pharmacy: [facility], 1 tabs Oral QID Start Date: 11/01/15 Status: OrderedZoloft 100 mg oral tablet 200 mg 2 tabs, Oral, Daily, # 60 tabs, 3 Refill(s), Pharmacy: [facility], 2 tabs Oral Daily,x30 days Start Date: 06/19/15 Stop Date: 10/17/15 Status: Ordered Results No data available for this section Immunizations Vaccine Date Refusal Reason influenza virus vaccine, inactivated1 05/24/15 influenza virus vaccine, inactivated 06/14/14 pneumococcal 23-polyvalent vaccine2 01/28/14 1Early/Late Reason: Other : DID NOT CROSS [id number]/Late Reason: Other : STATUS Procedures Procedure Date Related Diagnosis Body Site Open Reduction Internal Fixation Ankle (Left)1 11/01/14 Adrenalectomy Appendectomy Cholecystectomy Hysterectomy Provision of stents or bite blocks Total knee arthroplasty 1auto-populated from documented surgical case Social History Social History Type Response Smoking Status Never smoker Assessment and Plan No data available for this section
--- OUTSIDE RECORDS SUMMARY | 2017-10-25 21:18 | External Medical Summary | Referral Summary ---
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 Discharge Diagnosis: Depression Discharge Diagnosis: Anxiety Discharge Disposition: 01-Home or Self Care Attending Physician: Dani Kenny MD Admitting Physician: Josh Canas DO Vital Signs Most recent to oldest [Reference Range]: 1 Temperature Oral [35.8-37.3 degC] 37 degC (05/10/15 3:05 PM) Peripheral Pulse Rate [60-100 bpm] 76 bpm (05/10/15 3:05 PM) Respiratory Rate [14-20 br/min] 17 br/min (05/10/15 3:05 PM) Blood Pressure [90-140/60-90 mmHg] 140/68 mmHg (05/10/15 3:05 PM) SpO2 99 % (05/10/15 3:05 PM) Problem List Condition Effective Dates Status [...] At Risk for Activity Intolerance Plan of Riuk9Yuhd problem was added by Discern Expert.3Problem added automatically by system based on initiation of At Risk for Infection in Nutrition Planof Lukr6Qqkbmpn added automatically by system based on initiation of Risk for Injury Plan of Otnt1Fryuahl added automatically by system based on initiation of At Risk for Unstable Blood Glucose Planof Cfrz8Xsdgmgt added automatically by system based on initiation of Bowel Dysfunction Plan of Ejsn0Ovqhf from NOT FOUND collected 09/07/15 17:48:00 HXU8Omwumjl added automatically by system based on initiation of Fluid Volume Imbalance Plan of Wbac2Gioeqie added automatically by system based on initiation of Knowledge Deficit Plan of Hzjd74Qnsvxim added automatically by system based on initiation [...] # 40 tabs, 3 Refill(s), Pharmacy : [facility], 1 tabs Oral QID,PRN:as [...] day), # 15 mL, 3 Refill(s), Pharmacy: [facility], 30 units SubCutaneous Bedtime (once a day) Start Date: 07/24/15 Status: Orderedmetoprolol tartrate 25 mg oral tablet 25 mg 1 tabs, Oral, BID, # 60 tabs, 0 Refill(s), Pharmacy: [facility] Start Date: 07/16/15 Status: OrderedMiraLax 17 g 1 packets, Oral, Daily, Constipation, 0 Refill(s) Start Date: 09/14/15 Status: OrderedNovoLOG 8 units, SubCutaneous, TIDAC, 0 Refill(s) Start Date: 11/01/15 Status: OrderedNovoLOG 100 units/mL subcutaneous solution 10 units, SubCutaneous, TIDAC, # 15 mL, 3 Refill(s), Pharmacy: [facility], 10 units SubCutaneous TIDAC Start Date: 07/24/15 Status: OrderedReglan 10 mg oral tablet 10 mg 1 tabs, Oral, QID, # 120 tabs, 0 Refill(s), Pharmacy: [facility], 1 tabs Oral QID Start Date: 11/01/15 Status: OrderedZoloft 100 mg oral tablet 200 mg 2 tabs, Oral, Daily, # 60 tabs, 3 Refill(s), Pharmacy: [facility], 2 tabs Oral Daily,x30 days Start Date: 06/19/15 Stop Date: 10/17/15 Status: Ordered Results Chemistry Most recent to oldest [Reference Range]: 1 Sodium Lvl [135-144 mEq/L] 136 mEq/L (05/10/15 4:11 PM) Potassium Lvl [3.5-5.2 mEq/L] 5.4 mEq/L *HI* (05/10/15 4:11 PM) Chloride [99-111 mEq/L] 110 mEq/L (05/10/15 4:11 PM) CO2 [22-31 mEq/L] 20 mEq/L *LOW* (05/10/15 4:11 PM) AGAP [3-20] 6 (05/10/15 4:11 PM) BUN [10-20 mg/dL] 19 mg/dL (05/10/15 4:11 PM) Glucose Lvl [70-99 mg/dL] 176 mg/dL *HI* (05/10/15 4:11 PM) Creatinine Lvl [0.57-1.11 mg/dL] 1.33 mg/dL *HI* (05/10/15 4:11 PM) eGFR [>60 mL/min] 39 mL/min 1 *ABN* (05/10/15 4:11 PM) Calcium Lvl [8.9-10.5 mg/dL] 8.9 mg/dL (05/10/15 4:11 PM) 1Result Comment: Multiply eGFR results by 1.21 for race. Immunizations Vaccine Date Refusal Reason influenza virus vaccine, inactivated1 05/24/15 influenza virus vaccine, inactivated 06/14/14 pneumococcal 23-polyvalent vaccine2 01/28/14 1Early/Late Reason: Other : DID NOT CROSS [id number]/Late Reason: Other : STATUS Procedures Procedure Date Related Diagnosis Body Site Open Reduction Internal Fixation Ankle (Left)1 11/01/14 Adrenalectomy Appendectomy Cholecystectomy Hysterectomy Provision of stents or bite blocks Total knee arthroplasty 1auto-populated from documented surgical case Social History Social History Type Response Smoking Status Never smoker Assessment and Plan No data available for this section
--- OUTSIDE RECORDS SUMMARY | 2017-10-25 21:18 | External Medical Summary | Referral Summary ---
:1945 Author Organization [facility] Address [address] [place] [address] Care Team Providers Name Role Phone AshGuzman dominique A Primary Care Physician Encounter VC Date(s): 11/20/16 - 11/20/16 [facility] [address] [place] [address] [place] Discharge Diagnosis: Diabetes mellitus, insulin dependent (IDDM), uncontrolled Discharge Disposition: 01-Home or Self Care Attending Physician: Jaymie West MD Admitting Physician: Josh Canas DO Vital Signs Most recent to oldest [Reference Range]: 1 Temperature Oral [35.8-37.3 degC] 36.3 degC (11/20/16 3:25 PM) Peripheral Pulse Rate [60-100 bpm] 70 bpm (11/20/16 3:25 PM) Respiratory Rate [14-20 br/min] 16 br/min (11/20/16 3:25 PM) Blood Pressure [90-140/60-90 mmHg] 118/68 mmHg (11/20/16 3:25 PM) Problem List Condition Effective Dates Status [...] 1Urine from NOT FOUND collected 04/13/16 12:36:00 WZQ9Fragply added automatically by system based on initiation of At Risk for Activity Intolerance Plan of Macu0Zyki problem was added by Discern Expert.4Problem added automatically by system based on initiation of At Risk for Infection in Nutrition Planof Adgf3Imwgchi added automatically by system based on initiation of Risk for Injury Plan of Htwd5Krwyacx added automatically by system based on initiation of At Risk for Unstable Blood Glucose Planof Bfwu7Alscxzk added automatically by system based on initiation of Bowel Dysfunction Plan of Affg1Ezxus from NOT FOUND collected 09/07/15 17:48:00 FEK9Mytslqx added automatically by system based on initiation of Fluid Volume Imbalance Plan of Mepv68Pyfugvf added automatically by system based on initiation of Knowledge Deficit Plan of Etqs23Wrtcilv added automatically by system based on initiation [...] q8hr, # 15 caps, 0 Refill(s), Pharmacy: [facility] Start Date: 10/23/16 Status: OrderedLantus [...] BEFORE MEAL(S) , # 10 unknown unit,eRx: [facility] Start Date: 07/30/16 Status: Orderedsertraline [...] 10/26/16 Stop Date: 10/29/16 Status: Ordered Results Chemistry Most recent to oldest [Reference Range]: 1 Hgb A1c [4.1-5.6 %] 7.4 % *HI* (11/20/16 4:18 PM) eAvg Glucose 165.7 mg/dL (11/20/16 4:18 PM) Urinalysis Most recent to oldest [Reference Range]: 1 UA WBC [0-4] 10-20 *ABN* (11/20/16 4:09 PM) UA RBC [0-4] 0-4 (11/20/16 4:09 PM) Epithelial Cells 5-10 (11/20/16 4:09 PM) UA Hyal Cast [0-3] 1-3 (11/20/16 4:09 PM) Immunizations Given and Recorded Vaccine Date Status Refusal Reason influenza virus vaccine, inactivated 05/09/16 Given influenza virus vaccine, inactivated1 05/24/15 Given influenza virus vaccine, inactivated2 05/24/15 Given influenza virus vaccine, inactivated 06/14/14 Given pneumococcal 23-polyvalent vaccine3 01/28/14 Given 1Early/Late Reason: Other : DID NOT CROSS [id number] Comment: did not cross [id number]/Late Reason: Other : STATUS Procedures Procedure Date Related Diagnosis Body Site Open Reduction Internal Fixation Ankle (Left)1 11/01/14 Adrenalectomy Appendectomy Cholecystectomy Hysterectomy Provision of stents or bite blocks Total knee arthroplasty 1auto-populated from documented surgical case Social History Social History Type Response Smoking Status Never smoker Assessment and Plan Extracted from: Title: Ambulatory Patient Education Author: Josh Canas DO Date: 11/20/16 Preventive Health Blood Glucose Monitoring, Adult Monitoring your blood [...] 08/06/2004 Document Revised: 2015 Document Reviewed: 12/27/2013 Elsevier Interactive Patient Education 2016 [employer] No follow up information was provided.
--- OUTSIDE RECORDS SUMMARY | 2017-10-25 21:18 | External Medical Summary | Referral Summary ---
:[address] [facility] Address [address] [place] [address] Care Team Providers Name Role Phone Josh Canas Primary Care Physician Encounter VC Date(s): 10/26/16 - 10/26/[address] [facility] [address], [place] [address] Discharge Diagnosis: Acute UTI Discharge Diagnosis: Nausea & vomiting Discharge Disposition: 01-Home or Self Care Attending Physician: Tavo Palomares DO Admitting Physician: Juanito Baig MD Vital Signs Most recent to oldest [Reference Range]: 1 Temperature Oral [35.8-37.3 degC] 36.6 degC (10/26/16 2:41 PM) Peripheral Pulse Rate [60-100 bpm] 67 bpm (10/26/16 5:24 PM) Respiratory Rate [14-20 br/min] 18 br/min (10/26/16 5:24 PM) Blood Pressure [90-140/60-90 mmHg] 162/81 mmHg *HI* (10/26/16 5:24 PM) SpO2 97 % (10/26/16 5:24 PM) Problem List Condition Effective Dates Status [...] 1Urine from NOT FOUND collected 04/13/16 12:36:00 JTW8Kmfctag added automatically by system based on initiation of At Risk for Activity Intolerance Plan of Xkww7Uknc problem was added by Discern Expert.4Problem added automatically by system based on initiation of At Risk for Infection in Nutrition Planof Wfhx3Pxaqqkf added automatically by system based on initiation of Risk for Injury Plan of Yboi2Eccjovn added automatically by system based on initiation of At Risk for Unstable Blood Glucose Planof Losh4Uyuktqi added automatically by system based on initiation of Bowel Dysfunction Plan of Ltuc7Qwtbi from NOT FOUND collected 09/07/15 17:48:00 YMG5Qacqqvj added automatically by system based on initiation of Fluid Volume Imbalance Plan of Geap15Fmwhrxt added automatically by system based on initiation of Knowledge Deficit Plan of Pcab55Glaugrl added automatically by system based on initiation [...] q8hr, # 15 caps, 0 Refill(s), Pharmacy: [facility] Start Date: 10/23/16 Status: OrderedLantus [...] BEFORE MEAL(S) , # 10 unknown unit,eRx: [facility] Start Date: 07/30/16 Status: Orderedphenazopyridine 100 mg oral tablet 100 mg 1 tabs, Oral, TID, Pain, X 3 days, # 9 tabs, 0 Refill(s) Start Date: 10/26/16 Stop Date: 10/29/16 Status: Orderedsertraline 100 mg oral tablet 200 [...] oldest [Reference Range]: 1 WBC [4.8-10.8 10*3/uL] 8.5 10*3/uL (10/26/16 3:31 PM) RBC [4.00-5.20] 4.59 (10/26/16 3:31 PM) Hgb [12.0-16.0 gm/dL] 13.0 gm/dL (10/26/16 3:31 PM) Hct [37.0-47.0 %] 39.3 % (10/26/16 3:31 PM) MCV [82.0-99.0 fL] 85.6 fL (10/26/16 3:31 PM) MCH [27.0-32.0 pg] 28.3 pg (10/26/16 3:31 PM) MCHC [32.0-36.0 gm/dL] 33.1 gm/dL (10/26/16 3:31 PM) RDW [11.5-14.5 %] 13.8 % (10/26/16 3:31 PM) Platelet [150-400 10*3/uL] 167 10*3/uL (10/26/16 3:31 PM) MPV [9.4-12.4 fL] 10.6 fL (10/26/16 3:31 PM) Immature Granulocytes [0.0-1.0 %] 0.1 % (10/26/16 3:31 PM) Neutrophils [51-75 %] 70 % (10/26/16 3:31 PM) Lymphocytes [20-46 %] 23 % (10/26/16 3:31 PM) Monocytes [4-11 %] 5 % (10/26/16 3:31 PM) Eosinophils [0-4 %] 1 % (10/26/16 3:31 PM) Basophils [0-2 %] 0 % (10/26/16 3:31 PM) Neutro Absolute [1.90-7.00] 5.95 (10/26/16 3:31 PM) Lymph Absolute [0.80-3.30] 1.99 (10/26/16 3:31 PM) [place] Absolute [0.30-1.00] 0.44 (10/26/16 3:31 PM) Eos Absolute [0.00-0.50] 0.09 (10/26/16 3:31 PM) Baso Absolute [0.00-0.20] 0.02 (10/26/16 3:31 PM) Chemistry Most recent to oldest [Reference Range]: 1 Sodium Lvl [136-144 mEq/L] 137 mEq/L (10/26/16 3:31 PM) Potassium Lvl [3.6-5.1 mEq/L] 4.6 mEq/L (10/26/16 3:31 PM) Chloride [99-109 mEq/L] 102 mEq/L (10/26/16 3:31 PM) CO2 [22-32 mEq/L] 24 mEq/L (10/26/16 3:31 PM) AGAP [3-20] 11 (10/26/16 3:31 PM) BUN [4-20 mg/dL] 20 mg/dL (10/26/16 3:31 PM) Glucose Lvl [70-100 mg/dL] 169 mg/dL *HI* (10/26/16 3:31 PM) Creatinine Lvl [0.44-1.03 mg/dL] 1.07 mg/dL *HI* (10/26/16 3:31 PM) eGFR [>60] 51 1 *ABN* (10/26/16 3:31 PM) Calcium Lvl [8.6-10.0 mg/dL] 9.1 mg/dL (10/26/16 3:31 PM) Albumin Lvl [3.5-4.8 gm/dL] 4.0 gm/dL (10/26/16 3:31 PM) Total Protein [6.1-7.9 gm/dL] 6.5 gm/dL (10/26/16 3:31 PM) Globulin [1.9-4.3 gm/dL] 2.5 gm/dL (10/26/16 3:31 PM) ALT [14-54 U/L] 34 U/L (10/26/16 3:31 PM) AST [15-41 U/L] 35 U/L (10/26/16 3:31 PM) Alk Phos [26-104 U/L] 81 U/L (10/26/16 3:31 PM) Bili Total [0.2-1.2 mg/dL] 0.9 mg/dL 2 (10/26/16 3:31 PM) Troponin [<0.06 ng/mL] <0.05 ng/mL (10/26/16 3:31 PM) Lipase Lvl [8-48 U/L] 26 U/L (10/26/16 3:31 PM) Blood Glucose, Capillary [70-100 mg/dL] 163 mg/dL *HI* (10/26/16 2:48 PM) 1Result Comment: Multiply eGFR results by 1.21 for race.2Result Comment: Naproxen, specifically the metabolite O-desmethylnaproxen, may cause spurious elevation in Total Bilirubin levels.Urinalysis Most recent to oldest [Reference Range]: 1 UA Color Yellow (10/26/16 3:31 PM) UA Appear Sl Cloudy (10/26/16 3:31 PM) UA pH [5.0-8.0] 5.0 (10/26/16 3:31 PM) UA Leuk Est [Negative] Pos 1+ *ABN* (10/26/16 3:31 PM) UA Nitrite [Negative] Negative (10/26/16 3:31 PM) UA Protein [Negative] Negative (10/26/16 3:31 PM) UA Glucose [Negative] Negative (10/26/16 3:31 PM) UA Ketones [Negative] Pos 1+ *ABN* (10/26/16 3:31 PM) UA Urobilinogen [<1.0] Negative (10/26/16 3:31 PM) UA Bili [Negative] Negative (10/26/16 3:31 PM) UA Blood [Negative] Negative (10/26/16 3:31 PM) UA Spec Grav [1.003-1.030] 1.025 (10/26/16 3:31 PM) Type Catheter (10/26/16 3:31 PM) UA WBC [0-4] 10-20 *ABN* (10/26/16 3:31 PM) UA RBC [0-2] 0-2 (10/26/16 3:31 PM) Epithelial Cells 0-2 (10/26/16 3:31 PM) UA Bacteria Occasional *ABN* (10/26/16 3:31 PM) UA Mucous Present (10/26/16 3:31 PM) Immunizations Given and Recorded Vaccine Date Status Refusal Reason influenza virus vaccine, inactivated 05/09/16 Given influenza virus vaccine, inactivated1 05/24/15 Given influenza virus vaccine, inactivated2 05/24/15 Given influenza virus vaccine, inactivated 06/14/14 Given pneumococcal 23-polyvalent vaccine3 01/28/14 Given 1Early/Late Reason: Other : DID NOT CROSS [id number] Comment: did not cross [id number]/Late Reason: Other : STATUS Procedures Procedure Date Related Diagnosis Body Site Open Reduction Internal Fixation Ankle (Left)1 11/01/14 Adrenalectomy Appendectomy Cholecystectomy Hysterectomy Provision of stents or bite blocks Total knee arthroplasty 1auto-populated from documented surgical case Social History Social History Type Response Smoking Status Never smoker Assessment and Plan No data available for this section"
--- OUTSIDE RECORDS SUMMARY | 2017-10-25 21:18 | External Medical Summary | Referral Summary ---
:1945 Author [facility] Address [address] [place] [address] Care Team Providers Name Role Phone Josh Canas Primary Care Physician Encounter VC Date(s): 01/09/15 - 01/09/15 [facility] [address] [place] [address] [place] Discharge Disposition: 01-Home or Self Care [...] At Risk for Activity Intolerance Plan of Qcgu9Ylpp problem was added by Discern Expert.3Problem added automatically by system based on initiation of At Risk for Infection in Nutrition Planof Dzal7Mgpyieg added automatically by system based on initiation of Risk for Injury Plan of Klzz4Weuydqq added automatically by system based on initiation of At Risk for Unstable Blood Glucose Planof Dgnw5Fddofdt added automatically by system based on initiation of Knowledge Deficit Plan of Zeun0Jyxacyu added automatically by system based on initiation [...] BID, # 60 tabs, 3 Refill(s), [facility], 1 tabs Oral BID Start Date: 06/05/15 Status: Orderedmetoprolol tartrate 25 mg oral tablet 25 mg 1 tabs, Oral, BID, # 60 tabs, 0 Refill(s), [facility]acy[facility] Start Date: 07/16/15 Status: OrderedNovoLOG 100 units/mL subcutaneous solution 6 units, SubCutaneous, TIDAC, # 15 mL, 3 Refill(s), called to pharmacy (Rx) Start Date: 04/10/15 Status: OrderedReglan 10 mg oral tablet 10 mg, Oral, Daily, # 30 tabs, 3 Refill(s), Pharmacy: [facility], 10 mg Oral Daily Start [...] q24hr, # 30 tabs, 0 Refill(s), Pharmacy: [facility], 1 tabs Oral q24hr Start Date: 05/10/15 Status: OrderedZoloft 100 mg oral tablet 200 mg 2 tabs, Oral, Daily, # 60 tabs, 3 Refill(s), Pharmacy: [facility], 2 tabs Oral Daily,x30 days Start Date: 06/19/15 Stop Date: 10/17/15 Status: Ordered Results No data available for this section Immunizations Vaccine Date Refusal Reason influenza virus vaccine, inactivated1 05/24/15 influenza virus vaccine, inactivated 06/14/14 pneumococcal 23-polyvalent vaccine2 01/28/14 1Early/Late Reason: Other : DID NOT CROSS [id number]/Late Reason: Other : STATUS Procedures Procedure Date Related Diagnosis Body Site Open Reduction Internal Fixation Ankle (Left)1 11/01/14 Adrenalectomy Appendectomy Cholecystectomy Hysterectomy Total knee arthroplasty 1auto-populated from documented surgical case Social History Social History Type Response Smoking Status Never smoker Assessment and Plan No data available for this section
--- OUTSIDE RECORDS SUMMARY | 2017-10-25 21:19 | External Medical Summary | Referral Summary ---
:1945 Author Organization [facility] Address [address] [place] [address] Care Team Providers Name Role Phone Josh Canas Primary Care Physician Encounter [facility] [id number] Date(s): 03/26/15 - 03/26/15 [facility] [address], [place] [address] Discharge Diagnosis: Lip laceration Discharge Diagnosis: Syncope Discharge Diagnosis: Head injury Final: HEAD INJURY, UNSPECIFIED Final: OPEN WOUND OF LIP, UNCOMPLICATED Final: SYNCOPE AND COLLAPSE Final: FALL RESULTING IN STRIKING AGAINST SHARP OBJECT Final: ACCIDENTS CAUSED BY OTHER SPECIFIED CUTTING AND PIERCING INSTRUMENTS OR OBJECTS Final: HOME ACCIDENTS Discharge Disposition: 01-Home or Self Care Attending Physician: Alexander Galaviz MD Admitting Physician: Alexander Galaviz MD Vital Signs Most recent to oldest [Reference Range]: 1 Temperature Oral [35.8-37.3 degC] 36.9 degC (03/26/15 11:52 AM) Peripheral Pulse Rate [60-100 bpm] 83 bpm (03/26/15 11:52 AM) Heart Rate Monitored [60-100 bpm] 69 bpm (03/26/15 2:53 PM) Respiratory Rate [14-20 br/min] 16 br/min (03/26/15 2:53 PM) Blood Pressure [90-140/60-90 mmHg] 120/93 mmHg (03/26/15 2:53 PM) Mean Arterial Pressure, Cuff 108 mmHg (03/26/15 2:53 PM) SpO2 99 % (03/26/15 2:53 PM) Problem List Condition Effective Dates Status [...] At Risk for Activity Intolerance Plan of Bwjo4Stou problem was added by Discern Expert.3Problem added automatically by system based on initiation of At Risk for Infection in Nutrition Planof Plak6Iyouaan added automatically by system based on initiation of Risk for Injury Plan of Didb2Nlytqhd added automatically by system based on initiation of At Risk for Unstable Blood Glucose Planof Bicg2Kpbdkxx added automatically by system based on initiation of Bowel Dysfunction Plan of Dfrl9Ogrtp from NOT FOUND collected 09/07/15 17:48:00 XED5Spmbcyy added automatically by system based on initiation of Fluid Volume Imbalance Plan of Grgq2Mkkitns added automatically by system based on initiation of Knowledge Deficit Plan of Altl69Avsjqqe added automatically by system based on initiation [...] # 40 tabs, 3 Refill(s), Pharmacy : [facility], 1 tabs Oral QID,PRN:as needed [...] day), # 15 mL, 3 Refill(s), Pharmacy: [facility], 30 units SubCutaneous Bedtime (once a day) Start Date: 07/24/15 Status: Orderedmetoprolol tartrate 25 mg oral tablet 25 mg 1 tabs, Oral, BID, # 60 tabs, 0 Refill(s), Pharmacy: [facility] Start Date: 07/16/15 Status: OrderedMiraLax 17 g 1 packets, Oral, Daily, Constipation, 0 Refill(s) Start Date: 09/14/15 Status: OrderedNovoLOG 100 units/mL subcutaneous solution 10 units, SubCutaneous, TIDAC, # 15 mL, 3 Refill(s), Pharmacy: [facility], 10 units SubCutaneous TIDAC Start Date: 07/24/15 Status: OrderedZoloft 100 mg oral tablet 200 mg 2 tabs, Oral, Daily, # 60 tabs, 3 Refill(s), Pharmacy: [facility], 2 tabs Oral Daily,x30 days Start Date: 06/19/15 Stop Date: 10/17/15 Status: Ordered Results Hematology Most recent to oldest [Reference Range]: 1 WBC [4.8-10.8 10*3/uL] 9.1 10*3/uL (03/26/15 1:20 PM) RBC [4.00-5.20 10*6/uL] 4.47 10*6/uL (03/26/15 1:20 PM) Hgb [12.0-16.0 gm/dL] 12.0 gm/dL (03/26/15 1:20 PM) Hct [37.0-47.0 %] 37.1 % (03/26/15 1:20 PM) MCV [82.0-99.0 fL] 83.0 fL (03/26/15 1:20 PM) MCH [27.0-32.0 pg] 26.8 pg *LOW* (03/26/15 1:20 PM) MCHC [32.0-36.0 gm/dL] 32.3 gm/dL (03/26/15 1:20 PM) RDW [11.5-14.5 %] 13.8 % (03/26/15 1:20 PM) Platelet [150-400 10*3/uL] 147 10*3/uL *LOW* (03/26/15 1:20 PM) MPV [9.4-12.4 fL] 10.3 fL (03/26/15 1:20 PM) Immature Granulocytes [0.0-1.0 %] 0.0 % (03/26/15 1:20 PM) Neutrophils [51-75 %] 66 % (03/26/15 1:20 PM) Lymphocytes [20-46 %] 24 % (03/26/15 1:20 PM) Monocytes [4-11 %] 7 % (03/26/15 1:20 PM) Eosinophils [0-4 %] 2 % (03/26/15 1:20 PM) Basophils [0-2 %] 0 % (03/26/15 1:20 PM) Neutro Absolute [1.90-7.00 10*3] 6.03 10*3 (03/26/15 1:20 PM) Lymph Absolute [0.80-3.30 10*3] 2.19 10*3 (03/26/15 1:20 PM) [place] Absolute [0.30-1.00 10*3] 0.65 10*3 (03/26/15 1:20 PM) Eos Absolute [0.00-0.50 10*3] 0.20 10*3 (03/26/15 1:20 PM) Baso Absolute [0.00-0.20 10*3] 0.03 10*3 (03/26/15 1:20 PM) Coagulation Most recent to oldest [Reference Range]: 1 INR [0.9-1.2] 1.0 (03/26/15 1:20 PM) Chemistry Most recent to oldest [Reference Range]: 1 Sodium Lvl [136-144 mEq/L] 130 mEq/L *LOW* (03/26/15 1:20 PM) Potassium Lvl [3.6-5.1 mEq/L] 4.5 mEq/L (03/26/15 1:20 PM) Chloride [99-109 mEq/L] 101 mEq/L (03/26/15 1:20 PM) CO2 [22-32 mEq/L] 22 mEq/L (03/26/15 1:20 PM) AGAP [3-20] 7 (03/26/15 1:20 PM) BUN [4-20 mg/dL] 43 mg/dL *HI* (03/26/15 1:20 PM) Glucose Lvl [70-100 mg/dL] 164 mg/dL *HI* (03/26/15 1:20 PM) Creatinine Lvl [0.44-1.03 mg/dL] 1.72 mg/dL *HI* (03/26/15 1:20 PM) eGFR [>60] 29 1 *ABN* (03/26/15 1:20 PM) Calcium Lvl [8.6-10.0 mg/dL] 9.2 mg/dL (03/26/15 1:20 PM) Albumin Lvl [3.5-4.8 gm/dL] 4.1 gm/dL (03/26/15 1:20 PM) Total Protein [6.1-7.9 gm/dL] 6.5 gm/dL (03/26/15 1:20 PM) Globulin [1.9-4.3 gm/dL] 2.4 gm/dL (03/26/15 1:20 PM) ALT [14-54 U/L] 14 U/L (03/26/15 1:20 PM) AST [15-41 U/L] 18 U/L (03/26/15 1:20 PM) Alk Phos [26-104 U/L] 51 U/L (03/26/15 1:20 PM) Bili Total [0.2-1.2 mg/dL] 0.8 mg/dL 2 (03/26/15 1:20 PM) BNP [0-99 pg/mL] 13 pg/mL (03/26/15 1:20 PM) Troponin [<0.06 ng/mL] <0.05 ng/mL (03/26/15 1:20 PM) Blood Glucose, Capillary [70-100 mg/dL] 152 mg/dL *HI* (03/26/15 11:51 AM) 1Result Comment: Multiply eGFR results by 1.21 for race.2Result Comment: Naproxen, specifically the metabolite O-desmethylnaproxen, may cause spurious elevation in Total Bilirubin levels. Immunizations Vaccine Date Refusal Reason influenza virus vaccine, inactivated1 05/24/15 influenza virus vaccine, inactivated 06/14/14 pneumococcal 23-polyvalent vaccine2 01/28/14 1Early/Late Reason: Other : DID NOT CROSS [id number]/Late Reason: Other : STATUS Procedures Procedure Date Related Diagnosis Body Site Repair lip, full thickness; vermilion only 03/26/15 Open Reduction Internal Fixation Ankle (Left)1 11/01/14 Adrenalectomy Appendectomy Cholecystectomy Hysterectomy Provision of stents or bite blocks Total knee arthroplasty 1auto-populated from documented surgical case Social History Social History Type Response Smoking Status Never smoker Assessment and Plan No data available for this section
--- OUTSIDE RECORDS SUMMARY | 2017-10-25 21:19 | External Medical Summary | Referral Summary ---
:1945 Author Organization Via [facility] Address [address] [place] [address] Care Team Providers Name Role Phone Josh Canas Primary Care Physician Encounter VC Date(s): 08/30/15 - 08/30/15 [facility] [address] [place], [place] [address] Discharge Diagnosis: Benzodiazepine overdose Discharge Diagnosis: Altered mental status Discharge Disposition: -Home or Self Care Attending Physician: Elaine Stuart MD Admitting Physician: lEaine Stuart MD Vital Signs Most recent to oldest [Reference Range]: 1 Temperature Oral [35.8-37.3 degC] 36.6 degC (08/30/15 6:15 PM) Peripheral Pulse Rate [60-100 bpm] 60 bpm (08/30/15 8:15 PM) Respiratory Rate [14-20 br/min] 16 br/min (08/30/15 8:15 PM) Blood Pressure [90-140/60-90 mmHg] 130/75 mmHg (08/30/15 8:15 PM) SpO2 100 % (08/30/15 8:15 PM) Problem List Condition Effective Dates Status [...] At Risk for Activity Intolerance Plan of Nzpt8Htdz problem was added by Discern Expert.3Problem added automatically by system based on initiation of At Risk for Infection in Nutrition Planof Dlny8Djbphzi added automatically by system based on initiation of Risk for Injury Plan of Skaz2Pkeggbu added automatically by system based on initiation of At Risk for Unstable Blood Glucose Planof Yjyk1Bnfspth added automatically by system based on initiation of Knowledge Deficit Plan of Bdia8Yavukto added automatically by system based on initiation [...] # 40 tabs, 3 Refill(s), Pharmacy : [id number], 1 tabs Oral QID,PRN:as needed for anxiety Start Date: 08/24/15 Status: OrderedLevemir 100 units/mL subcutaneous solution 30 units, SubCutaneous, Bedtime (once a day), # 15 mL, 3 Refill(s), Pharmacy: [id number], 30 units SubCutaneous Bedtime (once a day) Start Date: 07/24/15 Status: OrderedmetFORMIN 1000 mg oral tablet 1,000 mg 1 tabs, Oral, BID, # 60 tabs, 3 Refill(s), Pharmacy: [facility], 1 tabs Oral BID Start Date: 06/05/15 Status: Orderedmetoprolol tartrate 25 mg oral tablet 25 mg 1 tabs, Oral, BID, # 60 tabs, 0 Refill(s), Pharmacy: [facility] Start Date: 07/16/15 Status: OrderedMiscellaneous [...] TIDAC, # 15 mL, 3 Refill(s), Pharmacy: [facility], 10 units SubCutaneous TIDAC Start Date: 07/24/15 Status: OrderedReglan 10 mg oral tablet 10 mg 1 tabs, Oral, QID, Headache, X 7 days, # 28 tabs, 0 Refill(s) Start Date: 08/24/15 Stop Date: 08/31/15 Status: OrderedReglan 10 mg oral tablet 10 mg, Oral, Daily, # 30 tabs, 3 Refill(s), Pharmacy: [facility], 10 mg Oral Daily Start Date: 03/22/15 Status: OrderedtraZODone 50 mg oral tablet 50 mg 1 tabs, Oral, Bedtime (once a day), # 30 tabs, 0 Refill(s), Pharmacy: [facility], 1 tabs Oral Bedtime (once a day) Start Date: 05/10/15 Status: OrderedVoltaren 1% topical gel 1 deric, Topical, QID, as needed for pain, # 100 g, 0 Refill(s) Start Date: 07/14/15 Status: OrderedWellbutrin XL 150 mg/24 hours oral tablet, extended release 150 mg 1 tabs, Oral, q24hr, # 30 tabs, 0 Refill(s), Pharmacy: [facility], 1 tabs Oral q24hr Start Date: 05/10/15 Status: OrderedZoloft 100 mg oral tablet 200 mg 2 tabs, Oral, Daily, # 60 tabs, 3 Refill(s), Pharmacy: [facility], 2 tabs Oral Daily,x30 days Start Date: 06/19/15 Stop Date: 10/17/15 Status: Ordered Results Hematology Most recent to oldest [Reference Range]: 1 WBC [4.8-10.8 10*3/uL] 8.4 10*3/uL (08/30/15 6:48 PM) RBC [4.00-5.20] 4.15 (08/30/15 6:48 PM) Hgb [12.0-16.0 gm/dL] 10.6 gm/dL *LOW* (08/30/15 6:48 PM) Hct [37.0-47.0 %] 34.2 % *LOW* (08/30/15 6:48 PM) MCV [82.0-99.0 fL] 82.4 fL (08/30/15 6:48 PM) MCH [27.0-32.0 pg] 25.5 pg *LOW* (08/30/15 6:48 PM) MCHC [32.0-36.0 gm/dL] 31.0 gm/dL *LOW* (08/30/15 6:48 PM) RDW [11.5-14.5 %] 13.8 % (08/30/15 6:48 PM) Platelet [150-400 10*3/uL] 183 10*3/uL (08/30/15 6:48 PM) MPV [9.4-12.4 fL] 10.6 fL (08/30/15 6:48 PM) Immature Granulocytes [0.0-1.0 %] 0.1 % (08/30/15 6:48 PM) Neutrophils [51-75 %] 45 % *LOW* (08/30/15 6:48 PM) Lymphocytes [20-46 %] 43 % (08/30/15 6:48 PM) Monocytes [4-11 %] 8 % (08/30/15 6:48 PM) Eosinophils [0-4 %] 4 % (08/30/15 6:48 PM) Basophils [0-2 %] 0 % (08/30/15 6:48 PM) Neutro Absolute [1.90-7.00 10*3] 3.78 10*3 (08/30/15 6:48 PM) Lymph Absolute [0.80-3.30 10*3] 3.60 10*3 *HI* (08/30/15 6:48 PM) [place] Absolute [0.30-1.00 10*3] 0.69 10*3 (08/30/15 6:48 PM) Eos Absolute [0.00-0.50 10*3] 0.29 10*3 (08/30/15 6:48 PM) Baso Absolute [0.00-0.20 10*3] 0.03 10*3 (08/30/15 6:48 PM) Chemistry Most recent to oldest [Reference Range]: 1 Sodium Lvl [136-144 mEq/L] 136 mEq/L (08/30/15 6:48 PM) Potassium Lvl [3.6-5.1 mEq/L] 4.5 mEq/L (08/30/15 6:48 PM) Chloride [99-109 mEq/L] 107 mEq/L (08/30/15 6:48 PM) CO2 [22-32 mEq/L] 23 mEq/L (08/30/15 6:48 PM) AGAP [3-20] 6 (08/30/15 6:48 PM) BUN [4-20 mg/dL] 24 mg/dL *HI* (08/30/15 6:48 PM) Glucose Lvl [70-100 mg/dL] 118 mg/dL *HI* (08/30/15 6:48 PM) Creatinine Lvl [0.44-1.03 mg/dL] 1.13 mg/dL *HI* (08/30/15 6:48 PM) eGFR [>60] 48 1 *ABN* (08/30/15 6:48 PM) Calcium Lvl [8.6-10.0 mg/dL] 9.1 mg/dL (08/30/15 6:48 PM) Albumin Lvl [3.5-4.8 gm/dL] 3.6 gm/dL (08/30/15 6:48 PM) Total Protein [6.1-7.9 gm/dL] 5.9 gm/dL *LOW* (08/30/15 6:48 PM) Globulin [1.9-4.3 gm/dL] 2.3 gm/dL (08/30/15 6:48 PM) ALT [14-54 U/L] 15 U/L (08/30/15 6:48 PM) AST [15-41 U/L] 21 U/L (08/30/15 6:48 PM) Alk Phos [26-104 U/L] 62 U/L (08/30/15 6:48 PM) Bili Total [0.2-1.2 mg/dL] 0.4 mg/dL 2 (08/30/15 6:48 PM) 1Result Comment: Multiply eGFR results by 1.21 for race.2Result Comment: Naproxen, specifically the metabolite O-desmethylnaproxen, may cause spurious elevation in Total Bilirubin levels.Therapeutic Drug Monitoring Most recent to oldest [Reference Range]: 1 Acetaminophen Lvl [10-30 ug/mL] 16 ug/mL (08/30/15 6:48 PM) Salicylate Lvl [0-30 mg/dL] <4 mg/dL (08/30/15 6:48 PM) Toxicology Most recent to oldest [Reference Range]: 1 Ethanol Lvl None Detected (08/30/15 6:48 PM) U Amphetamine Scrn Negative (08/30/15 6:48 PM) U Cocaine Scrn Negative (08/30/15 6:48 PM) U Cannab Scrn Negative (08/30/15 6:48 PM) U Opiate Scrn Positive *ABN* (08/30/15 6:48 PM) U PCP Scrn Negative (08/30/15 6:48 PM) U Benzodiazepine Scrn Positive *ABN* (08/30/15 6:48 PM) U Barbiturate Scrn Negative (08/30/15 6:48 PM) Methadone Lvl Negative (08/30/15 6:48 PM) Tricyclics Negative 1 (08/30/15 6:48 PM) 1Result Comment: Cut-off concentrations: Amphetamines: 1000 [...] oldest [Reference Range]: 1 UA Color Yellow (08/30/15 6:48 PM) UA Appear Sl Cloudy (08/30/15 6:48 PM) UA pH [5.0-8.0] 5.0 (08/30/15 6:48 PM) UA Leuk Est [Negative] Pos 1+ *ABN* (08/30/15 6:48 PM) UA Nitrite [Negative] Negative (08/30/15 6:48 PM) UA Protein [Negative] Negative (08/30/15 6:48 PM) UA Glucose [Negative] Pos 1+ *ABN* (08/30/15 6:48 PM) UA Ketones [Negative] Negative (08/30/15 6:48 PM) UA Urobilinogen [<1.0] Negative (08/30/15 6:48 PM) UA Bili [Negative] Negative (08/30/15 6:48 PM) UA Blood [Negative] Pos 2+ *ABN* (08/30/15 6:48 PM) UA Spec Grav [1.003-1.030] 1.015 (08/30/15 6:48 PM) Type Clean Catch (08/30/15 6:48 PM) UA WBC [0-4] 5-10 *ABN* (08/30/15 6:48 PM) UA RBC [0-2] 10-20 *ABN* (08/30/15 6:48 PM) Epithelial Cells 10-20 (08/30/15 6:48 PM) UA Bacteria Moderate *ABN* (08/30/15 6:48 PM) UA Mucous Present (08/30/15 6:48 PM) Immunizations Vaccine Date Refusal Reason influenza virus vaccine, inactivated1 05/24/15 influenza virus vaccine, inactivated 06/14/14 pneumococcal 23-polyvalent vaccine2 01/28/14 1Early/Late Reason: Other : DID NOT CROSS [id number]/Late Reason: Other : STATUS Procedures Procedure Date Related Diagnosis Body Site Open Reduction Internal Fixation Ankle (Left)1 11/01/14 Adrenalectomy Appendectomy Cholecystectomy Hysterectomy Total knee arthroplasty 1auto-populated from documented surgical case Social History Social History Type Response Smoking Status Never smoker Assessment and Plan No data available for this section
--- OUTSIDE RECORDS SUMMARY | 2017-10-25 21:19 | External Medical Summary | Referral Summary ---
:1945 Author Organization [facility] Address [address] [place] [address] Care Team Providers Name Role Phone Josh Canas Primary Care Physician Encounter VC Date(s): 08/26/16 - 08/26/16 [facility] [address] [place] [address] [place] Discharge Disposition: 01-Home or Self Care Attending Physician: Som Hernández MD Admitting Physician: Ze Guevara MD Vital Signs Most recent to oldest [Reference Range]: 1 Temperature Oral [35.8-37.3 degC] 36.5 degC (08/26/16 11:05 AM) Peripheral Pulse Rate [60-100 bpm] 72 bpm (08/26/16 11:05 AM) Respiratory Rate [14-20 br/min] 20 br/min (08/26/16 11:05 AM) Blood Pressure [90-140/60-90 mmHg] 122/78 mmHg (08/26/16 11:05 AM) Problem List Condition Effective Dates Status [...] 1Urine from NOT FOUND collected 04/13/16 12:36:00 [id number] added automatically by system based on initiation of At Risk for Activity Intolerance Plan of Avaj0Pfjl problem was added by Discern Expert.4Problem added automatically by system based on initiation of At Risk for Infection in Nutrition Planof Vmab0Xzwcpke added automatically by system based on initiation of Risk for Injury Plan of Scsf3Cxywroe added automatically by system based on initiation of At Risk for Unstable Blood Glucose Planof Fmif4Vliqyys added automatically by system based on initiation of Bowel Dysfunction Plan of Bqco0Hqhdd from NOT FOUND collected 09/07/15 17:48:00 ZQR4Ylrectm added automatically by system based on initiation of Fluid Volume Imbalance Plan of Wget57Afgfjia added automatically by system based on initiation of Knowledge Deficit Plan of Clyr27Wnvciwx added automatically by system based on initiation [...] HgbA1C: 9.1 11/01/2015, See Instructions,... Start Date: 4/6/16 Status: OrderedKeflex 500 mg oral capsule 500 mg 1 caps, Oral, BID, X 7 days, # 14 caps, 0 Refill(s), Pharmacy: [facility], 1 capsOral BID,x7 days Start Date: 08/20/16 Stop Date: 08/27/16 Status: OrderedLevemir 100 units/mL subcutaneous solution 30 units, SubCutaneous, Bedtime (once a day), please give patient 28 day supply , # 10 mL, 0 Refill(s), Pharmacy: [facility], 30 units SubCutaneous Bedtime (once a day),Instr:please [...] BID, # 120 tabs, 6 Refill(s), Pharmacy: [place] [id number], 2 tabs OralBID,x30 days,Instr:Take with meals , start with 1... Start Date: 11/22/15 Stop Date: 06/19/16 Status: OrderedNovoLOG 100 units/mL subcutaneous solution See Instructions, INJECT 8 UNITS SUBCUTANEOUSLY THREE TIMES DAILY BEFORE MEAL(S) , # 10 unknown unit,eRx: [facility] Start Date: 07/30/16 Status: OrderedReglan 10 mg oral tablet 10 mg 1 tabs, Oral, QID, # 120 tabs, 0 Refill(s), Pharmacy: [facility], 1 tabs Oral QID Start Date: 11/01/15 Status: Orderedsertraline 100 mg oral tablet See Instructions, TAKE TWO TABLETS BY MOUTH ONCE DAILY, # 60 tabs, 2 Refill(s), eRx: [facility], TAKE TWO TABLETS BY MOUTH ONCE DAILY Start Date: 02/28/16 Status: Ordered Results Chemistry Most recent to oldest [Reference Range]: 1 Sodium Lvl [135-144 mEq/L] 136 mEq/L (08/26/16 11:48 AM) Potassium Lvl [3.5-5.2 mEq/L] 5.1 mEq/L (08/26/16 11:48 AM) Chloride [99-111 mEq/L] 107 mEq/L (08/26/16 11:48 AM) CO2 [22-31 mEq/L] 17 mEq/L *LOW* (08/26/16 11:48 AM) AGAP [3-20] 12 (08/26/16 11:48 AM) BUN [10-20 mg/dL] 25 mg/dL *HI* (08/26/16 11:48 AM) Glucose Lvl [70-99 mg/dL] 254 mg/dL *HI* (08/26/16 11:48 AM) Creatinine Lvl [0.57-1.11 mg/dL] 1.37 mg/dL *HI* (08/26/16 11:48 AM) eGFR [>60 mL/min] 38 mL/min 1 *ABN* (08/26/16 11:48 AM) Calcium Lvl [8.9-10.5 mg/dL] 9.5 mg/dL (08/26/16 11:48 AM) Albumin Lvl [3.4-4.8 gm/dL] 4.4 gm/dL (08/26/16 11:48 AM) Phosphorus [2.3-4.7 mg/dL] 3.2 mg/dL (08/26/16 11:48 AM) 1Result Comment: Multiply eGFR results by 1.21 for race. Immunizations Given and Recorded Vaccine Date Status Refusal Reason influenza virus vaccine, inactivated 05/09/16 Given influenza virus vaccine, inactivated1 05/24/15 Given influenza virus vaccine, inactivated2 05/24/15 Given influenza virus vaccine, inactivated 06/14/14 Given pneumococcal 23-polyvalent vaccine3 01/28/14 Given 1Early/Late Reason: Other : DID NOT CROSS [id number] Comment: did not cross habamqgeg3Gthcm/Late Reason: Other : STATUS Procedures Procedure Date Related Diagnosis Body Site Open Reduction Internal Fixation Ankle (Left)1 11/01/14 Adrenalectomy Appendectomy Cholecystectomy Hysterectomy Provision of stents or bite blocks Total knee arthroplasty 1auto-populated from documented surgical case Social History Social History Type Response Smoking Status Never smoker Assessment and Plan No data available for this section
--- OUTSIDE RECORDS SUMMARY | 2017-10-25 21:19 | External Medical Summary ---
:1945 Author Name GENERATED, SYSTEM Care Team Providers Name Role Phone Unavailable Primary Care Provider Unavailable Reason For Visit Reason for Visit from 03/28/2017 6:09 PM:Pt Stated Reason for Adm : Hyperglycemia , suicidial Chief Complaint HYPERGLYCEMIA Social History Social History from 03/29/2017 11:52 AM:Tobacco Use? : Never SmokerSocial History from 03/28/2017 6:09 PM:Tobacco Use? : Never Smoker Functional Status Functional Status from 03/29/2017 7:26 AM:LOC : AlertOriented To : Person,Place, Time,EventWeight Bearing Status : FullAssist Level : Dependent# Assists : 1Functional Status from 03/28/2017 7:20 PM:LOC : AlertOriented To : Person,Place, TimeWeight Bearing Status : FullAssist Level : Partial# Assists : 1Functional Status from 03/28/2017 6:09 PM:LOC : AlertOriented To : Person,Place,Time, EventWeight Bearing Status : FullAssist Level : Dependent# Assists : 1 Vital Signs Hospital Vital Signs from 03/29/2017 2:10 PM:Height : 5/8 ft,inBP : 133/ 80Hospital Vital Signs from 03/29/2017 12:00 PM:Heart Rate : 72Resp Rate : 11Systolic BP (mmHg) : 132Diastolic BP (mmHg) : 80Mean BP (mmHg) : 90O2 Saturation (%) : 98Hospital Vital Signs from 03/29/2017 11:00 AM:Temp : 98.3Heart Rate : 70Resp Rate : 12Systolic BP (mmHg) : 123Diastolic BP (mmHg) : 55Mean BP (mmHg) : 92O2 Saturation (%) : 97Hospital Vital Signs from 03/29/2017 10:00 AM:Heart Rate : 78Resp Rate : 7Systolic BP (mmHg) : 131Diastolic BP (mmHg ) : 64Mean BP (mmHg) : 86O2 Saturation (%) : 98Hospital Vital Signs from 2016 9:00 AM:Heart Rate : 72Resp Rate : 11Systolic BP (mmHg) : 128Diastolic BP ( mmHg) : 51Mean BP (mmHg) : 75O2 Saturation (%) : 96Hospital Vital Signs from 07/2017 8:00 AM:Heart Rate : 72Resp Rate : 14Systolic BP (mmHg) : 148Diastolic BP (mmHg) : 72Mean BP (mmHg) : 96O2 Saturation (%) : 98Hospital Vital Signs from 03/29/2017 7:26 AM:Heart Rate : 88Hospital Vital Signs from 03/29/2017 7:00 AM:Temp : 98.4Heart Rate : 81Resp Rate : 12Systolic BP (mmHg) : 104Diastolic BP (mmHg) : 73Mean BP (mmHg) : 90O2 Saturation (%) : 96Hospital Vital Signs from 07/2017 6:00 AM:Heart Rate : 73Resp Rate : 14Systolic BP (mmHg) : 127Diastolic BP (mmHg) : 55Mean BP (mmHg) : 72O2 Saturation (%) : 96Hospital Vital Signs from 03/29/2017 5:00 AM:Heart Rate : 79Resp Rate : 13Systolic BP (mmHg) : 128Diastolic BP (mmHg) : 75Mean BP (mmHg) : 95O2 Saturation (%) : 95Hospital Vital Signs from 03/29/2017 4:00 AM:Heart Rate : 86Resp Rate : 13Systolic BP ( mmHg) : 121Diastolic BP (mmHg) : 54Mean BP (mmHg) : 77O2 Saturation (%) : 95Hospital Vital Signs from 03/29/2017 3:00 AM:Temp : 98.9Heart Rate : 71Resp Rate : 13Systolic BP (mmHg) : 96Diastolic BP (mmHg) : 42Mean BP (mmHg) : 72O2 Saturation (%) : 95Hospital Vital Signs from 03/29/2017 2:00 AM:Heart Rate : 74Resp Rate : 9Systolic BP (mmHg) : 115Diastolic BP (mmHg) : 86Mean BP (mmHg) : 98O2 Saturation (%) : 96Hospital Vital Signs from 03/29/2017 1:00 AM:Heart Rate : 89Resp Rate : 16Systolic BP (mmHg) : 118Diastolic BP (mmHg) : 66Mean BP (mmHg ) : 79O2 Saturation (%) : 95Hospital Vital Signs from 03/29/2017 12:00 AM:Heart Rate : 81Resp Rate : 14Systolic BP (mmHg) : 113Diastolic BP (mmHg) : 93Mean BP ( mmHg) : 99O2 Saturation (%) : 94Hospital Vital Signs from 03/28/2017 11:00 PM: Temp : 98.7Heart Rate : 87Resp Rate : 20Systolic BP (mmHg) : 148Diastolic BP ( mmHg) : 76Mean BP (mmHg) : 111O2 Saturation (%) : 98Hospital Vital Signs from 06/2017 10:00 PM:Heart Rate : 90Resp Rate : 14Systolic BP (mmHg) : 121Diastolic BP (mmHg) : 56Mean BP (mmHg) : 72O2 Saturation (%) : 98Hospital Vital Signs from 03/28/2017 9:00 PM:Heart Rate : 96Resp Rate : 16Systolic BP (mmHg) : 147Diastolic BP (mmHg) : 63Mean BP (mmHg) : 104O2 Saturation (%) : 100Hospital Vital Signs from 03/28/2017 8:00 PM:Heart Rate : 83Resp Rate : 8Systolic BP (mmHg ) : 132Diastolic BP (mmHg) : 50Mean BP (mmHg) : 91O2 Saturation (%) : 97Hospital Vital Signs from 03/28/2017 7:20 PM:Heart Rate : 86Hospital Vital Signs from 03/28/2017 7:00 PM:Temp : 98.3Heart Rate : 83Resp Rate : 9Systolic BP (mmHg) : 141Diastolic BP (mmHg) : 61Mean BP (mmHg) : 83O2 Saturation (%) : 98Hospital Vital Signs from 03/28/2017 6:09 PM:Weight : 82.8/ kgHeight : 5/8 ft, inHospital Vital Signs from 03/28/2017 6:00 PM:Temp : 98.1Heart Rate : 76Resp Rate : 10Systolic BP (mmHg) : 142Diastolic BP (mmHg) : 62Mean BP (mmHg) : 84O2 Saturation (%) : 97Hospital Vital Signs from 03/28/2017 5:51 PM:Heart Rate : 79Resp Rate : 17Systolic BP (mmHg) : 148Diastolic BP (mmHg) : 67Mean BP (mmHg) : 94O2 Saturation (%) : 98 Results Chemistry from 03/29/2017 4:15 [id number] MMOL/L (136-145 MMOL/L) POTASSIUM4.0 MMOL/L (3.5-5.1 MMOL/L) [id number] MMOL/L H (98-107 MMOL/L) DIA871.2 MMOL/L (21.0-32.0 MMOL/L) *ANION GAP5.8 MMOL/L L (8.0-16.0 MMOL/L) BUN22 MG/DL H (7-18 MG/DL) CREATININE1.06 MG/DL H (0.55-1.02 MG/DL) *BUN/CREATININE RATIO20.8 H (9.1-17.0 ) [id number] MG/DL H (65-99 MG/DL) *GFR EST NON AFR [id number] ML/MIN (Reference Range: not available) *GFR EST AFR AMER61 ML/MIN (Reference Range: not available) CALCIUM8.6 MG/DL (8.5-10.1 MG/DL) ALBUMIN2.9 GM/DL L (3.4-5.0 GM/DL) PHOSPHORUS1.6 MG/DL L (2.6-4.7 MG/DL)Hematology from 03/29/2017 4:15 AMWBC7.4 X10e3/UL (3.6-11.2 X10e3/UL) RBC3.87 X10e6/UL (3.63-4.92 X10e6/UL) KSJJLWHFFC58.4 G/DL L (11.0-14.3 G/DL) DVLFJTAALC01.1 % L (31.2-41.9 %) *MCV80.4 FL (79.0-98.0 FL) *MCH26.8 PG L (27.0-33.0 PG) *MCHC33.4 G/DL (32.0-36.0 G/DL) *RDW15.5 % (12.3-17.0 %) *RDWSD43.3 (37.1-47.8 ) [id number] X10e3/UL L (159-386 X10e3/UL) *MPV9.0 FL (7.4-10.4 FL) AUTOMATED DIFFPERFORMED (Reference Range: not available) SEGS59.2 % (Reference Range: not available) *CGJPOADKEXL12.8 % (Reference Range: not available) *MONOCYTES6.5 % (Reference Range: not available) *EOSINOPHILS2.8 % (Reference Range: not available) *BASOPHILS0.7 % (Reference Range: not available) *ABSOLUTE NEUTROPHILS4.40 X10e3/UL (1.80-7.80 X10e3/UL) *ABSOLUTE LYMPHOCYTES2.30 X10e3/UL (1.00-3.00 X10e3/UL) *ABSOLUTE MONOCYTES0.50 X10e3/UL (0.30-1.00 X10e3/UL) *ABSOLUTE EOSINOPHILS0.20 X10e3/UL (0.00-0.50 X10e3/UL) *ABSOLUTE BASOPHILS0.00 X10e3/UL (0.00-0.20 X10e3/UL) Problems Encounter Diagnosis Acute Urinary Tract infection Status:Active.Fall Risk Status:Active.Feeling Suicidal Status:Active.Hyperglycemia Status:Active.Mobility Impairment Status: Active. Encounters Encounter Diagnosis Acute Urinary Tract infection Status:Active.Fall Risk Status:Active.Feeling Suicidal Status:Active.Hyperglycemia Status:Active.Mobility Impairment Status: Active. Plan of Care Follow-up Appointments from 03/29/2017 11:52 AM:#1 Office appointment: : PCP in [facility] : Patient will call on Friday to make return apptTreatment Plan from 03/29/2017 1:12 PM:Care Management Note : BODY,TD,TH,BUTTON,INPUT, SELECT,TEXTAREA{FONT-SIZE: 10pt; FONT-FAMILY: [place],Helvetica; COLOR: black;} P, DIV,UL,OL,BLOCKQUOTE{MARGIN-BOTTOM: 0px; MARGIN-TOP: 0px;} BODY{MARGIN: 5px;} Patient discharging to home later today. SW notified of plan. Patient remained Outpatient Observation status appropriate and did not meet Medicare's 2 midnight benchmark.Treatment Plan from 03/29/2017 12:09 AM:Care Management Note : BODY,TD,TH,BUTTON,INPUT,SELECT,TEXTAREA{FONT-SIZE: 10pt; FONT-FAMILY: [place], Connorvetica; COLOR: black;} P,DIV,UL,OL,BLOCKQUOTE{MARGIN-BOTTOM: 0px; MARGIN-TOP : 0px;} BODY{MARGIN: 5px;} Patient is Outpatient Observation status in an ICU bed. Patient was visiting a friend and was notfeeling well. Blood sugar was taken and note to be 500 and Patient was brought to ER. Patient was diagnosed with hyperglycemia, suicidal ideation, UTI, and ARF. POC currently includes lovenox daily, home medications PO, mag IV 4 doses, rocephin IV daily, NS@100, NS 1L bolus 1, insulin drip, and Psych consult. Abnormal labs: Na-130, TCO2- 17.9, Bun- 37, Cr- 1.74, Glu- 618, Alb- 3.3, mag- 1.6, Fe- 41, Platelets- 139. VSS on RA, BP noted at 146/67, and NSR on telemetry. UA was positive or > 1000Glucose, Nitrites, and moderate bacteria. Culture is pending results at this time. SW notified of POC. Care Management will continue to follow. Procedures No relevant procedures performed. Immunizations No immunizations administered or ordered. Hospital Course Hospital Discharge Instructions How to care for yourself at home from 03/29/2017 11:52 AM:Discharge Activity : Activity as toleratedDischarge Diet : Diet as directed by dieticianDischarge Diet: : Diabetic 2000 calorie diet, low fat, low cholesterol dietCall your doctor if: : Fever over 101 F or severe chills,Chest pain or other unexplained symptoms,Tingling or numbness develops,A sudden increase or decrease in weight, You have persistent or worsening symptoms,If you have Heart Failure and you gain 3 pounds within 1 week or your symptoms worsen. (Weigh at home tomorrow morning)Specific Discharge Teaching Instructions provided: : YesDischarge on Warfarin : No Allergies, Adverse Reactions, Alerts This section is livestock sales representative of the current allergy information, at the time of the CCD generation. In the case of regeneration of the CCD, the allergy information may not reflect the state of known allergies at the time of the CCD' s subject visit. Macrodantin causes Neck/head stiffness. Onset Hours.Penicillins causes Hives. Onset sudden.No Latex Allergy.No IV Contrast Allergy. Medication It is the responsibility of the patient or patient livestock sales representative to confirm the list of medicationswith either the patient's personal care provider or the patient's follow-up care provider to ensure the patient has an appropriate list of medications to take at home. Discharge medicationsNew medicationsciprofloxacin HCl 250 mg Tablet, Ordered By : JARETH IRAHETA MD Directions: 1 tablet oral twice a day Continued medicationsinsulin aspart (NovoLOG PenFill) 100 unit/mL Cartridge, Ordered By: JARETH IRAHETA MD Directions: 10 unit subcutaneous three times a day with or after meal insulin glargine (LanTUS) 100 unit/mL Solution, Ordered By: JARETH LANGLEY MD Directions: 30 unit subcutaneous daily at bedtime Changed medicationssertraline 200mg Tablet, Ordered By: JARETH IRAHETA MD Directions: 1 tablet oral daily Stopped medicationsNone
--- OUTSIDE RECORDS SUMMARY | 2017-10-25 21:19 | External Medical Summary | Referral Summary ---
:1945 Author Organization [facility] Address [address] [place] [address] Care Team Providers Name Role Phone Josh Canas Primary Care Physician Encounter VC Date(s): 02/24/15 - 02/24/15 [facility] [address], [place] [address] Discharge Diagnosis: Left foot pain Final: EDEMA Final: PAIN IN LIMB Discharge Disposition: 01-Home or Self Care Attending Physician: Beto Brar MD Admitting Physician: Beto Brar MD Referring Physician: Self Referred, X Vital Signs Most recent to oldest [Reference Range]: 1 Temperature Oral [35.8-37.3 degC] 36.8 degC (02/24/15 6:58 PM) Peripheral Pulse Rate [60-100 bpm] 62 bpm (02/24/15 10:45 PM) Respiratory Rate [14-20 br/min] 18 br/min (02/24/15 10:45 PM) Blood Pressure [90-140/60-90 mmHg] 141/70 mmHg *HI* (02/24/15 10:45 PM) SpO2 99 % (02/24/15 10:45 PM) Problem List Condition Effective Dates Status [...] At Risk for Activity Intolerance Plan of Mshc1Elva problem was added by Discern Expert.3Problem added automatically by system based on initiation of At Risk for Infection in Nutrition Planof Qwso8Virzyhs added automatically by system based on initiation of Risk for Injury Plan of [id number] added automatically by system based on initiation of At Risk for Unstable Blood Glucose Planof Gvuj0Sppxgia added automatically by system based on initiation of Knowledge Deficit Plan of [id number] added automatically by system based on initiation [...] # 40 tabs, 3 Refill(s), Pharmacy : [facility], 1 tabs Oral QID,PRN:as needed for anxiety Start Date: 08/24/15 Status: OrderedLevemir 100 units/mL subcutaneous solution 30 units, SubCutaneous, Bedtime (once a day), # 15 mL, 3 Refill(s), Pharmacy: [facility], 30 units SubCutaneous Bedtime (once a day) Start Date: 07/24/15 Status: OrderedmetFORMIN 1000 mg oral tablet 1,000 mg 1 tabs, Oral, BID, # 60 tabs, 3 Refill(s), Pharmacy: [facility], 1 tabs Oral BID Start Date: 06/05/15 Status: Orderedmetoprolol tartrate 25 mg oral tablet 25 mg 1 tabs, Oral, BID, # 60 tabs, 0 Refill(s), Pharmacy: [facility] Start Date: 07/16/15 Status: [...] TIDAC, # 15 mL, 3 Refill(s), Pharmacy: [facility], 10 units SubCutaneous TIDAC Start Date: 07/24/15 Status: OrderedReglan 10 mg oral tablet 10 mg, Oral, Daily, # 30 tabs, 3 Refill(s), Pharmacy: [facility], 10 mg Oral Daily Start Date: 03/22/15 Status: OrderedtraZODone 50 mg oral tablet 50 mg 1 tabs, Oral, Bedtime (once a day), # 30 tabs, 0 Refill(s), Pharmacy: [facility], 1 tabs Oral Bedtime (once a day) Start Date: 05/10/15 Status: OrderedVoltaren 1% topical gel 1 deric, Topical, QID, as needed for pain, # 100 g, 0 Refill(s) Start Date: 07/14/15 Status: OrderedWellbutrin XL 150 mg/24 hours oral tablet, extended release 150 mg 1 tabs, Oral, q24hr, # 30 tabs, 0 Refill(s), Pharmacy: [facility], 1 tabs Oral q24hr Start Date: 05/10/15 Status: OrderedZoloft 100 mg oral tablet 200 mg 2 tabs, Oral, Daily, # 60 tabs, 3 Refill(s), Pharmacy: [facility], 2 tabs Oral Daily,x30 days Start Date: 06/19/15 Stop Date: 10/17/15 Status: Ordered Results No data available for this section Immunizations Vaccine Date Refusal Reason influenza virus vaccine, inactivated1 05/24/15 influenza virus vaccine, inactivated 06/14/14 pneumococcal 23-polyvalent vaccine2 01/28/14 1Early/Late Reason: Other : DID NOT CROSS [id number] Reason: Other : STATUS Procedures Procedure Date Related Diagnosis Body Site Open Reduction Internal Fixation Ankle (Left)1 11/01/14 Adrenalectomy Appendectomy Cholecystectomy Hysterectomy Total knee arthroplasty 1auto-populated from documented surgical case Social History Social History Type Response Smoking Status Never smoker Assessment and Plan No data available for this section
--- OUTSIDE RECORDS SUMMARY | 2017-10-25 21:19 | External Medical Summary | Referral Summary ---
:1945 Author Organization [facility] Address [address] [place] [address] Care Team Providers Name Role Phone anibal Josh Shaista Primary Care Physician Encounter VC Date(s): 01/25/15 - 01/25/[address] [facility] [address] [place] [address] [place] Discharge Diagnosis: Diabetes Discharge Diagnosis: Insomnia [...] At Risk for Activity Intolerance Plan of Rohs1Fkfd problem was added by Discern Expert.3Problem added automatically by system based on initiation of At Risk for Infection in Nutrition Planof Eghe0Sinjkmu added automatically by system based on initiation of Risk for Injury Plan of Nsej2Phqdowb added automatically by system based on initiation of At Risk for Unstable Blood Glucose Planof Tbeq6Cjdbzrk added automatically by system based on initiation of Knowledge Deficit Plan of Nkop9Hjrcinf added automatically by system based on initiation [...] # 40 tabs, 0 Refill(s), Pharmacy : [facility], 1 tabs Oral QID,PRN:as needed for anxiety Start Date: 07/24/15 Status: OrderedLevemir 100 units/mL subcutaneous solution 30 units, SubCutaneous, Bedtime (once a day), # 15 mL, 3 Refill(s), Pharmacy: [facility], 30 units SubCutaneous Bedtime (once a day) Start Date: 07/24/15 Status: OrderedmetFORMIN 1000 mg oral tablet 1,000 mg 1 tabs, Oral, BID, # 60 tabs, 3 Refill(s), Pharmacy: [facility], 1 tabs Oral BID Start Date: 06/05/15 Status: Orderedmetoprolol tartrate 25 mg oral tablet 25 mg 1 tabs, Oral, BID, # 60 tabs, 0 Refill(s), Pharmacy: [facility] Start Date: 07/16/15 Status: [...] TIDAC, # 15 mL, 3 Refill(s), Pharmacy: [facility], 10 units SubCutaneous TIDAC Start Date: 07/24/15 Status: OrderedReglan 10 mg oral tablet 10 mg, Oral, Daily, # 30 tabs, 3 Refill(s), Pharmacy: [facility], 10 mg Oral Daily Start Date: 03/22/15 Status: OrderedtraZODone 50 mg oral tablet 50 mg 1 tabs, Oral, Bedtime (once a day), # 30 tabs, 0 Refill(s), Pharmacy: [facility], 1 tabs Oral Bedtime (once a day) Start Date: 05/10/15 Status: OrderedVoltaren 1% topical gel 1 deric, Topical, QID, as needed for pain, # 100 g, 0 Refill(s) Start Date: 07/14/15 Status: OrderedWellbutrin XL 150 mg/24 hours oral tablet, extended release 150 mg 1 tabs, Oral, q24hr, # 30 tabs, 0 Refill(s), Pharmacy: [facility], 1 tabs Oral q24hr Start Date: 05/10/15 Status: OrderedZoloft 100 mg oral tablet 200 mg 2 tabs, Oral, Daily, # 60 tabs, 3 Refill(s), Pharmacy: [facility], 2 tabs Oral Daily,x30 days Start Date: 06/19/15 Stop Date: 10/17/15 Status: Ordered Results No data available for this section Immunizations Vaccine Date Refusal Reason influenza virus vaccine, inactivated1 05/24/15 influenza virus vaccine, inactivated 06/14/14 pneumococcal 23-polyvalent vaccine2 01/28/14 1Early/Late Reason: Other : DID NOT CROSS [id number]/Late Reason: Other : STATUS Procedures Procedure Date [...]
--- OUTSIDE RECORDS SUMMARY | 2017-10-25 21:19 | External Medical Summary | Referral Summary ---
:1945 Author Organization [facility] Address [address] [place] [address] Care Team Providers Name Role Phone Josh Canas Primary Care Physician Encounter VC Date(s): 06/18/15 - 06/18/15 [facility] [address], [place] [address] Discharge Diagnosis: Chronic tension headaches Discharge Disposition: 01-Home or Self Care Attending Physician: Beto Townsend DO Admitting Physician: Beto Townsend DO Referring Physician: No PCP, Pt States Vital Signs Most recent to oldest [Reference Range]: 1 Temperature Oral [35.8-37.3 degC] 36.8 degC (06/18/15 8:54 PM) Peripheral Pulse Rate [60-100 bpm] 78 bpm (06/18/15 11:20 PM) Respiratory Rate [14-20 br/min] 16 br/min (06/18/15 11:20 PM) Blood Pressure [90-140/60-90 mmHg] 126/85 mmHg (06/18/15 11:20 PM) SpO2 96 % (06/18/15 11:20 PM) Problem List Condition Effective Dates Status [...] At Risk for Activity Intolerance Plan of [id number] added automatically by system based on initiation of At Risk for Infection in Nutrition Planof Mopf8Abuvdst added automatically by system based on initiation of Risk for Injury Plan of Dkzj2Pwxnpuz added automatically by system based on initiation of At Risk for Unstable Blood Glucose Planof Aicc4Esdpgdw added automatically by system based on initiation of Knowledge Deficit Plan of Cdwd1Zkytrih added automatically by system based on initiation [...] day), # 30 tabs, 11 Refill(s), Pharmacy: [facility], 1 tabs Oral Bedtime [...] Daily, # 30 tabs, 0 Refill(s), [facility] Start Date: 05/10/15 Status: OrderedLunesta 1 mg oral tablet 1 mg 1 tabs, Oral, Bedtime (once a day), as needed for insomnia, # 30 tabs, 5 Refill(s) Start Date: 01/25/15 Status: OrderedmetFORMIN 1000 mg oral tablet 1,000 mg 1 tabs, Oral, BID, # 60 tabs, 3 Refill(s), Pharmacy: [facility], 1 tabs Oral BID Start Date: 06/05/15 Status: OrderedMetoprolol Tartrate 25 mg, Oral, BID, 0 Refill(s) Start Date: 01/08/15 Status: OrderedNorco 5 mg-325 mg oral tablet 1 tabs, Oral, q6hr, as needed for pain, # 6 tabs, 0 Refill(s) Start Date: 06/18/15 Stop Date: 06/19/15 Status: OrderedNovoLOG 100 units/mL subcutaneous solution 6 units, SubCutaneous, TIDAC, # 15 mL, 3 Refill(s), called to pharmacy (Rx) Start Date: 04/10/15 Status: OrderedReglan 10 mg oral tablet 10 mg, Oral, Daily, # 30 tabs, 3 Refill(s), Pharmacy: [facility], 10 mg Oral Daily Start Date: 03/22/15 Status: OrderedtraZODone 50 mg oral tablet 50 mg 1 tabs, Oral, Bedtime (once a day), # 30 tabs, 0 Refill(s), Pharmacy: [facility], 1 tabs Oral [...] q24hr, # 30 tabs, 0 Refill(s), Pharmacy: [facility], 1 tabs Oral q24hr Start Date: 05/10/15 Status: OrderedZoloft 100 mg oral tablet 200 mg 2 tabs, Oral, Daily, # 60 tabs, 0 Refill(s), Pharmacy: [facility], 2 tabs Oral Daily,x30 days Start Date: 04/20/15 Stop Date: 05/20/15 Status: Ordered Results Chemistry Most recent to oldest [Reference Range]: 1 Sodium Venous [136-144 mEq/L] 133 mEq/L *LOW* (06/18/15 9:33 PM) Potassium Venous [3.6-5.1 mEq/L] 4.4 mEq/L 1 (06/18/15 9:33 PM) Calcium Ionized Venous [1.19-1.41 mmol/L] 1.23 mmol/L (06/18/15 9:33 PM) Total CO2 Venous [25-29 mEq/L] 21 mEq/L *LOW* (06/18/15 9:33 PM) HGB Venous NPT [12.0-16.0 gm/dL] 11.9 gm/dL *LOW* (06/18/15 9:33 PM) HCT Venous [37.0-47.0 %] 35.0 % *LOW* (06/18/15 9:33 PM) Glucose Venous [70-100 mg/dL] 220 mg/dL *HI* (06/18/15 9:33 PM) BUN Venous [4-20] 20 (06/18/15 9:33 PM) Creatinine Venous [0.4-1.0 mg/dL] 1.2 mg/dL *HI* (06/18/15 9:33 PM) Venous CL [99-109 mEq/L] 102 mEq/L (06/18/15 9:33 PM) Anion Gap, Les [3-20] 10 (06/18/15 9:33 PM) 1Result Comment: This test was performed on a whole blood specimen. The presence or absence of hemolysis cannot be assessed. Hemolysis can falsely elevate potassium levels. Normals are for venous specimens only. Immunizations Vaccine Date Refusal Reason influenza virus vaccine, inactivated1 05/24/15 influenza virus vaccine, inactivated 06/14/14 pneumococcal 23-polyvalent vaccine2 01/28/14 1Early/Late Reason: Other : DID NOT CROSS [id number] Reason: Other : STATUS Procedures Procedure Date Related Diagnosis Body Site Open Reduction Internal Fixation Ankle (Left)1 11/01/14 Adrenalectomy Appendectomy Cholecystectomy Hysterectomy Total knee arthroplasty 1auto-populated from documented surgical case Social History Social History Type Response Smoking Status Never smoker Assessment and Plan No data available for this section
--- OUTSIDE RECORDS SUMMARY | 2017-10-25 21:20 | External Medical Summary | Continuity of Care Document ---
:1945 Author Organization [facility] Allergies Active Description Code Type Severity Reaction Onset Reported/ Identified Relationship Clinical to Patient Status Yes nitrofuranto nitro Drug Severe HIVES 07/13/2017 in furan Aller toin gy Yes Penicillins Penic Drug Severe HIVES 07/13/2017 illin Aller s gy Medications Medication Packaging Start Date Stop Date Route Dosage Sig Tablet 03/29/2017 oral 1 tablet ciprofloxacin HCl Problems Date Dx Attending Type Code Diagnosis Diagnosed By Coded 07/22/2014 Guy FRANCOIS, F 008.8 VIRAL ENTERITIS NOS Kasi D 07/22/2014 Guy FRANCOIS, F 250.00 DIAB FELY WO COMPL, Kasi D TYPE II OR UNSPEC TYPE, NOT UN 07/22/2014 Guy FRANCOIS, F 272.4 HYPERLIPIDEMIA Kasi D NEC/NOS 07/22/2014 Guy FRANCOIS, F 275.2 DIS MAGNESIUM Kasi D METABOLISM 07/22/2014 Guy FRANCOIS, F 276.1 HYPOSMOLALITY Kasi D 07/22/2014 Guy FRANCOIS, F 276.2 ACIDOSIS Kasi D 07/22/2014 Guy FRANCOIS, F 296.20 DEPRESS Kasi D DISORDER-UNSPEC 07/22/2014 Guy FRANCOIS, F 401.9 HYPERTENSION NOS Kasi D 07/22/2014 Guy FRANCOIS, F 412 OLD MYOCARDIAL Kasi D INFARCT 07/22/2014 Guy FRANCOIS, F 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 07/22/2014 Guy FRANCOIS, F 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 07/22/2014 Guy FRANCOIS, F 584.9 ACUTE RENAL FAILURE, Kasi D UNSPECIFIED 07/22/2014 Guy FRANCOIS, F 780.79 OTH MALAISE FATIGUE Kasi D 07/22/2014 Guy FRANCOIS, F 920 CONTUSION Kasi D FACE/SCALP/NCK 07/22/2014 Guy FRANCOIS, F E849.0 ACCIDENT IN HOME Kasi D 07/22/2014 Guy FRANCOIS, F E885.9 FALL FROM SLIPPING, Kasi D TRIPPING, OR STUMBLING NEC 07/22/2014 Guy FRANCOIS, F V43.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 07/22/2014 Guy FRANCOIS, F V45.82 PERCUTANEOUS TRANSLUM Kasi Boss CORON ANGIOPLASTY STATUS 07/22/2014 Tovar , F V58.66 LONG-TERM (CURRENT) Kasi Boss USE OF ASPIRIN 08/31/2017 Jazzmine Meléndez MD A41.9 SEPSIS, UNSPECIFIED A ORGANISM 08/31/2017 Jazzmine Meléndez MD B96.20 UNSP ESCHERICHIA COLI A THE CAUSE OF DISEASES CLA 08/31/2017 Jazzmine Meléndez MD E11.9 TYPE 2 DIABETES A MELLITUS WITHOUT COMPLICATIONS 08/31/2017 Jazzmine Meléndez MD E55.9 VITAMIN D DEFICIENCY, A UNSPECIFIED 08/31/2017 Jazzmine Meléndez MD E78.5 HYPERLIPIDEMIA, A UNSPECIFIED 08/31/2017 Jazzmine Meléndez MD F03.90 UNSPECIFIED DEMENTIA A WITHOUT BEHAVIORAL DISTURBANC 08/31/2017 Jazzmine Meléndez MD G93.41 METABOLIC A ENCEPHALOPATHY 08/31/2017 Jazzmine Meléndez MD 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 08/31/2017 Jazzmine Meléndez MD J32.9 CHRONIC SINUSITIS, A UNSPECIFIED 08/31/2017 Jazzmine Meléndez MD N30.00 ACUTE CYSTITIS A WITHOUT HEMATURIA 08/31/2017 Jazzmine Meléndez MD N39.0 URINARY TRACT A INFECTION, SITE NOT SPECIFIED 08/31/2017 Jazzmine Meléndez MD R41.82 ALTERED MENTAL A STATUS, UNSPECIFIED 08/31/2017 Jazzmine Meléndez MD Z79.4 SENIOR CARE (CURRENT) A USE OF INSULIN 08/31/2017 Jazzmine Meléndez MD Z79.[address] ATT[address]ANT (CURRENT) A USE OF ASPIRIN 08/31/2017 Jazzmine Meléndez MD Z88.0 ALLERGY STATUS TO A PENICILLIN 08/31/2017 Jazzmine Meléndez MD 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 angina pectoris 09/15/2017 ARELY CURTIS, N39.0 Urinary tract JHON BALDWIN MD infection, site not RODY A specified 09/15/2017 ARELY CURTIS, Z16.12 Extended spectrum JHON BALDWIN MD beta lactamase (ESBL) RODY A resistance 09/15/2017 ARELY CURTIS, Z16.24 Resistance to JHON BALDWIN MD multiple antibiotics RODY A 09/15/2017 ARELY CURTIS, Z79.2 snf (current) JHON BALDWIN MD use of antibiotics RODY A 09/15/2017 ARELY CURTIS, Z79.4 snf (current) JHON BALDWIN MD use of insulin RODY A 09/15/2017 ARELY CURTIS, Z88.0 Allergy status to JHON BALDWIN MD penicillin RODY A 10/03/2017 ARELY CURTIS, A41.9 Sepsis, unspecified JHON MCGEE MD organism JHON E 10/03/2017 ARELY CURTIS, B96.29 Other Escherichia JHON MCGEE MD coli [E. 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 MCGEE MD disease of knik JHON E coronary artery without angina pectoris 10/03/2017 ARELY CURTIS, N39.0 Urinary tract JHON MCGEE MD infection, site not JHON E specified 10/03/2017 ARELY CURTIS, Z16.12 Extended spectrum JHON MCGEE MD beta lactamase (ESBL) JHON Crys resistance 10/03/2017 ARELY CURTIS, Z16.24 Resistance to JHON MCGEE MD multiple antibiotics JHON Crys 10/03/2017 ARELY CURTIS, Z79.2 snf (current) JHON MCGEE MD use of antibiotics JHON Crys 10/03/2017 ARELY CURTIS, 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 JHON Spangler 10/03/2017 ARELY CURTIS, Z88.0 Allergy status to JHON MCGEE MD penicillin JHON Spangler Procedures Code Description Performed By Performed On INSERTION OF Jazzmine Meléndez MD 08/31/2017 [id number] INFUSION DEV INTO [place], [place] [address] Initial RODY BALDWIN MD 09/15/2017 hospital care, per day, for the evaluation and management of a patient, which requires these 04154 Subsequent RODY BALDWIN MD 09/15/2017 hospital care, per day, for the evaluation [place], [place] [address] Initial RODY BALDWIN MD 09/22/2017 hospital care, per day, for the evaluation and management of a patient, which requires these 67249 Subsequent RODY BALDWIN MD 09/22/2017 hospital care, per day, for the evaluation and management of a patient, which requires at LAB Lab only JHON MCGEE MD 10/03/2017 <section xmlns="urn:hl7-org:v3" xmlns:xsi="http://www.w3.org/ 2001/XMLSchema-instance"> <templateId root=" [id number]" /> <templateId root=" [id number]" /> <code codeSystemName=" LOINC" codeSystem="[email or web address]" code="45962-7&quot ; displayName="Results" /> <title>Results</title> &lt ;text> <table> <thead> <tr> <th& gt;Test</th> <th>Result</th> <th>Range </th> </tr> </thead> <tbody> &lt ;tr> <th colspan="10">METABOLIC PANEL, COMPREHN - 14:20</th> </tr> <tr> <td> POTASSIUM</td> <td>5.0 mmol/L</td> <td> 3.5-5.3</td> </tr> <tr> <td>EST GFR(MDRD)</td> <td>12 mL/min</td> <td> > 59</td> </tr> <tr> <td> ANION GAP</td> <td>20 mmol/L</td> <td> 5-15</td> </tr> <tr> <td>EST CrCl (CG)</td> <td>13 mL/min</td> <td> > 59</td> </tr> <tr> <td> GLUCOSE</td> <td>299 mg/dL</td> <td>70 -99</td> </tr> <tr> <td>CALCIUM</ td> <td>8.2 mg/dL</td> <td>8.5-10.1</ td> </tr> <tr> <td>BLOOD UREA NITROGEN</td> <td>60 mg/dL</td> <td>7-20 </td> </tr> <tr> <td>CREATININE& lt;/td> <td>3.9 mg/dL</td> <td>0.6-1.0&lt ;/td> </tr> <tr> <td>SODIUM</td& gt; <td>131 mmol/L</td> <td>135-148</td&gt ; </tr> <tr> <td>CHLORIDE</td> <td>96 mmol/L</td> <td>98-110</td> </tr& gt; <tr> <td>AST/SGOT</td> <td> 11 Units/L</td> <td>10-37</td> </tr> <tr> <td>ALT/SGPT</td> <td>11 Units/L</td> <td>< 66</td> </tr> <tr> <td>CARBON DIOXIDE</td> <td> 15 mmol/L</td> <td>21-32</td> </tr> &lt ;tr> <td>TOTAL PROTEIN</td> <td>7.2 gm/dL </td> <td>6.4-8.2</td> </tr> < tr> <td>ALBUMIN</td> <td>4.1 gm/dL</td > <td>3.4-5.0</td> </tr> <tr> <td>BILI TOTAL</td> <td>2.1 mg/dL</td&gt ; <td>0.0-1.0</td> </tr> <tr> <td>ALKALINE PHOSPHATASE TOTAL</td> <td>55 IU/L</ td> <td>45-117</td> </tr> <tr&gt ; <th colspan="10">MAGNESIUM - 07/22/14 14:20</th&gt ; </tr> <tr> <td>MAGNESIUM</td> <td>1.7 mg/dL</td> <td>1.8-2.4</td> & lt;/tr> <tr> <th colspan="10">BETA HYDROXYBUTYRATE - 07/22/14 14:20</th> </tr> <tr&gt ; <td>BETA HYDROXYBUTYRATE</td> <td>0.4 mmol /L</td> <td>< 0.6</td> </tr> <tr> <th colspan="10">LIPASE - 07/22/14 14:20 </th> </tr> <tr> <td>LIPASE</ td> <td>276 Units/L</td> <td>73-393</ td> </tr> <tr> <th colspan="10"> THYROID STIM HORMONE (TSH) - 07/22/14 14:20</th> </tr> <tr> <td>THYROID STIM HORMONE (TSH)</td> & lt;td>0.83 uIU/mL</td> <td>0.34-4.82</td> & lt;/tr> <tr> <th colspan="10"> HEMOGLOBIN A1C - 07/22/14 14:20</th> </tr> <tr> <td>HEMOGLOBIN A1C</td> <td>7.0 %& lt;/td> <td>< 5.7</td> </tr> <tr> <th colspan="10">TROPONIN I BEDSIDE - 14:47</th> </tr> <tr> <td>METHOD< /td> <td>Bedside </td> <td /> < /tr> <tr> <td>TROPONIN I</td> < td>< 0.04 ng/mL</td> <td>< 0.11</td&gt ; </tr> <tr> <th colspan="10"> CBC W/DIFF - 07/23/14 06:02</th> </tr> <tr> <td>EOSINOPHIL #</td> <td>0.1 k/cumm</td> <td>0.1-0.5</td> </tr> <tr><td& gt;EOSINOPHIL %</td> <td>1 %</td> <td>2-4</td> </tr> <tr> & lt;td>GRANULOCYTE #</td> <td>5.1 k/cumm</td> <td>2.0-9.0</td> </tr> <tr> <td> GRANULOCYTE %</td> <td>68 %</td> <td>50-75</td> </tr> <tr> & lt;td>LYMPHOCYTE #</td> <td>1.7 k/cumm</td> <td>1.0-4.0</td> </tr> <tr> &lt ;td>LYMPHOCYTE %</td> <td>23 %</td&gt ; <td>20-30</td> </tr> <tr> <td>MEAN CELL HGB</td> <td>28.0 pg</td> <td>27.0-33.0</td> </tr> <tr> <td>MEAN CELL HGB CONCENTRATION</td> <td>32.6 g /dL</td> <td>32.0-37.0</td> </tr> < tr> <td>MEAN CELL VOLUME</td> <td>86.1 fl </td> <td>80.0-100.0</td> </tr> & lt;tr> <td>MONOCYTE #</td> <td>0.5 k/cumm</td& gt; <td>0.1-1.0</td> </tr> <tr> <td>MONOCYTE %</td> <td>7 %</ td> <td>4-6</td> </tr> <tr> <td>RED BLOOD CELL</td> <td>4.03 m/cumm</ td> <td>4.00-6.00</td> </tr> <tr> <td>RED CELL DISTRIBUTION WIDTH</td> <td> 14.7 %</td> <td>11.0-15.6</td> </tr > <tr> <td>WHITE BLOOD CELL</td> <td >7.5 k/cumm</td> <td>5.0-10.0</td> </tr& gt; <tr> <td>HEMOGLOBIN</td> <td>11.3 gm/dL</td> <td>12.0-16.0</td> </tr> < tr> <td>HEMATOCRIT</td> <td>34.7 &#37 ;</td> <td>37.0-47.0</td> </tr> <tr& gt; <td>PLATELET COUNT</td> <td>177 k/cumm& lt;/td> <td>150-400</td> </tr> < tr> <th colspan="10">METABOLIC PANEL, [facility] - 01/29 06:02</th> </tr> <tr> <td> POTASSIUM</td> <td>4.5 mmol/L</td> <td&gt ;3.5-5.3</td> </tr> <tr> <td>EST GFR (MDRD)</td> <td>14 mL/min</td> <td&gt ;> 59</td> </tr> <tr> <td> ANION GAP</td> <td>12mmol/L</td> <td>5 -15</td> </tr> <tr> <td>EST CrCl (CG)</td> <td>15 mL/min</td> <td>& gt;59</td> </tr> <tr> <td>GLUCOSE </td> <td>179 mg/dL</td> <td>70-99< /td> </tr> <tr> <td>CALCIUM</td&gt ; <td>7.2 mg/dL</td> <td>8.5-10.1</td&gt ; </tr> <tr> <td>BLOOD UREA NITROGEN&lt ;/td> <td>59 mg/dL</td> <td>7-20</td& gt; </tr> <tr> <td>CREATININE</td> <td>3.4 mg/dL</td> <td>0.6-1.0</td> </tr& gt; <tr> <td>SODIUM</td> <td> 132 mmol/L</td> <td>135-148</td> </tr> <tr> <td>CHLORIDE</td> <td>104 mmol/L</td> <td>98-110</td> </tr> &lt ;tr> <td>AST/SGOT</td> <td>8 Units/L</ td> <td>10-37</td> </tr> <tr> <td>ALT/SGPT</td> <td>10 Units/L</td&gt ; <td>< 66</td> </tr> <tr> <td>CARBON DIOXIDE</td> <td>16 mmol/L</ td> <td>21-32</td> </tr> <tr> <td>TOTAL PROTEIN</td> <td>5.8 gm/dL</td&gt ; <td>6.4-8.2</td> </tr> <tr> &lt ;td>ALBUMIN</td> <td>3.3 gm/dL</td> < td>3.4-5.0</td> </tr> <tr> <td&gt ;BILI TOTAL</td> <td>1.1 mg/dL</td> <td& gt;0.0-1.0</td> </tr> <tr> <td> ALKALINE PHOSPHATASE TOTAL</td> <td>46 IU/L</td> < td>45-117</td> </tr> <tr> <th colspan="10">LIPID PANEL - 12/06/14 06:02</th> </tr > <tr> <td>CHOLESTEROL/HDL RATIO</td> <td>3.7 </td> <td> < 5.0</td> </tr> <tr> <td>LDL CHOLESTEROL</td> <td>17 mg/dL</td> <td>< 100</td> </tr> <tr> <td>VLDL CHOLESTEROL</td> <td>54 mg/dL</td> <td>< 30</td> </tr> <tr> <td>TRIGLYCERIDES</td> <td>269 mg/dL</td> <td>< 150</td> </tr> <tr> <td>CHOLESTEROL</td> <td>97 mg/dL</td> <td>< 200</td& gt; </tr> <tr> <td>HDL CHOLESTEROL</td& gt; <td>26 mg/dL</td> <td>> 39</td > </tr> <tr> <th colspan="10" >PHOSPHORUS - 07/23/14 06:02</th> </tr> <tr> <td>PHOSPHORUS</td> <td>5.0 mg/dL</td&gt ; <td>2.5-4.9</td> </tr> <tr> <th colspan="10">MAGNESIUM - 07/23/14 06:02</th> & lt;/tr> <tr> <td>MAGNESIUM</td> & lt;td>2.0 mg/dL</td> <td>1.8-2.4</td> </ tr> <tr> <th colspan="10">GLUCOSE (POC ) - 07/23/14 06:10</th> </tr> <tr> < td>GLUCOSE (POC)</td> <td>178 mg/dL</td> <td>70-99</td> </tr> <tr> <th colspan="10">UR SODIUM - 07/23/14 07:08</th> </tr& gt; <tr> <td>UR SODIUM COMMENT</td> <td> RANDOM </td> <td /> </tr> <tr> <td>UR SODIUM LEVEL</td> <td>57 mmol/L</td& gt; <td>20-40</td> </tr> <tr> & lt;th colspan="10">UR CREATININE - 07/23/14 07:08</th> </tr> <tr> <td>UR CREATININE COMMENT</td> <td>RANDOM </td> <td /> </tr> <tr> <td>UR CREATININE LEVEL</td> < td>63.5 mg/dL</td> <td>44-467</td> </tr& gt; <tr> <th colspan="10">LACTIC ACID - 09:21</th> </tr> <tr> <td> LACTIC ACID</td> <td>1.4 mmol/L</td> <td& gt;0.5-2.2</td> </tr> <tr> <th colspan= "10">TROPONIN I - 07/23/14 09:21</th> </tr> & lt;tr> <td>TROPONIN I</td> <td>< 0.02 ng/mL</td> <td>< 0.07</td> </tr > <tr> <th colspan="10">CREATINE KINASE (CK/CPK) - 07/23/14 09:21</th> </tr> <tr> <td>CREATINE KINASE (CK/CPK)</td> <td>63 Units/L</td> <td>< 193</td> </tr&gt ; <tr> <th colspan="10">GLUCOSE (POC) - 10:03</th> </tr> <tr> <td> GLUCOSE (POC)</td> <td>293 mg/dL</td> <td>70- 99</td> </tr> <tr> <th colspan=&quot ;10">GLUCOSE (POC) - 07/23/14 13:58</th> </tr> <tr> <td>GLUCOSE (POC)</td> <td>358 mg/dL</td> <td>70-99</td> </tr> & lt;tr> <th colspan="10">GLUCOSE (POC) - 07/23/14 20: 48</th> </tr> <tr> <td>GLUCOSE ( POC)</td> <td>65 mg/dL</td> <td>70-99& lt;/td> </tr> <tr> <th colspan="10& quot;>GLUCOSE (POC) - 07/23/14 21:46</th> </tr> <tr > <td>GLUCOSE (POC)</td> <td>99mg/dL</ td> <td>70-99</td> </tr> <tr> <th colspan="10">GLUCOSE (POC) - 07/24/14 05:29</th > </tr> <tr> <td>GLUCOSE (POC)</ td> <td>189 mg/dL</td> <td>70-99</td> </tr> <tr> <th colspan="10">CBC W/ DIFF - 07/24/14 06:40</th> </tr> <tr> & lt;td>EOSINOPHIL #</td> <td>0.1 k/cumm</td> <td>0.1-0.5</td> </tr> <tr> & lt;td>EOSINOPHIL %</td> <td>2 %</td& gt; <td>2-4</td> </tr> <tr> <td>GRANULOCYTE #</td> <td>4.7 k/cumm</td&gt ; <td>2.0-9.0</td> </tr> <tr> <td>GRANULOCYTE %</td> <td>57 &#37 ;</td> <td>50-75</td> </tr> < tr> <td>LYMPHOCYTE #</td> <td>2.6 k/cumm& lt;/td> <td>1.0-4.0</td> </tr> < tr> <td>LYMPHOCYTE %</td> <td>32 %</td> <td>20-30</td> </tr> <tr> <td>MEAN CELL HGB</td> <td>28.8 pg< /td> <td>27.0-33.0</td> </tr> <tr > <td>MEAN CELL HGB CONCENTRATION</td> <td& gt;32.2 g/dL</td> <td>32.0-37.0</td> </tr& gt; <tr> <td>MEAN CELL VOLUME</td> & lt;td>89.5 fl</td> <td>80.0-100.0</td> < /tr> <tr> <td>MONOCYTE #</td> < td>0.7 k/cumm</td> <td>0.1-1.0</td> </tr > <tr> <td>MONOCYTE %</td> < td>9 %</td> <td>4-6</td> </tr&gt ; <tr> <td>RED BLOOD CELL</td> <td >3.71 m/cumm</td> <td>4.00-6.00</td> </ tr> <tr> <td>RED CELL DISTRIBUTION WIDTH</td& gt; <td>14.9%</td> <td>11.0-15.6< /td> </tr> <tr> <td>WHITE BLOOD CELL< /td> <td>8.3 k/cumm</td> <td>5.0-10.0< /td> </tr> <tr> <td>HEMOGLOBIN</ td> <td>10.7 gm/dL</td> <td>12.0-16.0</ td> </tr> <tr> <td>HEMATOCRIT</td& gt; <td>33.2 %</td> <td>37.0-47.0&lt ;/td> </tr> <tr> <td>PLATELET COUNT& lt;/td> <td>145 k/cumm</td> <td>150-400& lt;/td> </tr> <tr> <th colspan="10 ">RENAL FUNCTION PANEL- 07/24/14 08:58</th> </tr> <tr> <td>POTASSIUM</td> <td>4.5 mmol/L</td> <td>3.5-5.3</td> </tr> <tr> <td>EST GFR (MDRD)</td> <td> 37 mL/min</td> <td>> 59</td> </tr&gt ; <tr> <td>ANION GAP</td> <td> 7 mmol/L</td> <td>5-15</td> </tr> <tr > <td>EST CrCl (CG)</td> <td>35 mL/min&lt ;/td> <td>> 59</td> </tr> &lt ;tr> <td>GLUCOSE</td> <td>237 mg/dL</td> <td>70-99</td> </tr> <tr> <td>CALCIUM</td> <td>7.7 mg/dL</td> & lt;td>8.5-10.1</td> </tr> <tr> <td> BLOOD UREA NITROGEN</td> <td>31 mg/dL</td> & lt;td>7-20</td> </tr> <tr> <td&gt ;CREATININE</td> <td>1.5 mg/dL</td> <td>0.6- 1.0</td> </tr> <tr> <td>SODIUM&lt ;/td> <td>137 mmol/L</td> <td>135-148< /td> </tr> <tr> <td>CHLORIDE</td& gt; <td>109 mmol/L</td> <td>98-110</td> </tr> <tr> <td>CARBON DIOXIDE</td> <td>21 mmol/L</td> <td>21-32</td> </ tr> <tr> <td>ALBUMIN</td> <td& gt;3.0 gm/dL</td> <td>3.4-5.0</td> </tr&gt ; <tr> <td>PHOSPHORUS</td> <td> 2.1 mg/dL</td> <td>2.5-4.9</td> </tr> <tr> <th colspan="10">MAGNESIUM - 07/24/14 08:58</th> </tr> <tr> <td> MAGNESIUM</td> <td>1.7 mg/dL</td> <td> 1.8-2.4</td> </tr> <tr> <th colspan= "10">GLUCOSE (POC) - 07/24/14 10:06</th> </tr> <tr> <td>GLUCOSE (POC)</td> <td&gt ;190 mg/dL</td> <td>70-99</td> </tr> <tr> <th colspan="10">GLUCOSE (POC) - 12:53</th> </tr> <tr> <td> GLUCOSE (POC)</td> <td>226 mg/dL</td> <td >70-99</td> </tr> <tr> <th colspan=&quot ;10">GLUCOSE (POC) - 07/24/14 13:43</th> </tr> < tr> <td>GLUCOSE (POC)</td> <td>248 mg/dL& lt;/td> <td>70-99</td> </tr> <tr> <th colspan="10">GLUCOSE (POC) - 07/24/14 16:54</th > </tr> <tr> <td>GLUCOSE (POC)</ td> <td>144 mg/dL</td> <td>70-99</td& gt; </tr> <tr> <th colspan="10"& gt;CBC W/DIFF - 07/25/14 05:44</th> </tr> <tr> <td>EOSINOPHIL #</td> <td>0.2 k/cumm</td& gt; <td>0.1-0.5</td> </tr> <tr> <td>EOSINOPHIL %</td> <td>3 &#37 ;</td> <td>2-4</td> </tr> <tr& gt; <td>GRANULOCYTE #</td> <td>3.1 k/cumm&lt ;/td> <td>2.0-9.0</td> </tr> <tr& gt; <td>GRANULOCYTE %</td><td>54 %&lt ;/td> <td>50-75</td> </tr> <tr&gt ; <td>LYMPHOCYTE #</td> <td>1.9 k/cumm</ td> <td>1.0-4.0</td> </tr> <tr&gt ; <td>LYMPHOCYTE %</td> <td>34 & #37;</td> <td>20-30</td> </tr> & lt;tr> <td>MEAN CELL HGB</td> <td>28.6 pg </td> <td>27.0-33.0</td> </tr> & lt;tr> <td>MEAN CELL HGB CONCENTRATION</td> &lt ;td>33.3 g/dL</td> <td>32.0-37.0</td> </ tr> <tr> <td>MEAN CELL VOLUME</td> <td>85.8 fl</td> <td>80.0-100.0</td> & lt;/tr> <tr> <td>MONOCYTE #</td> & lt;td>0.4 k/cumm</td> <td>0.1-1.0</td> < /tr> <tr> <td>MONOCYTE %</td> <td>8 %</td> <td>4-6</td> & lt;/tr> <tr> <td>RED BLOOD CELL</td> <td>3.46 m/cumm</td> <td>4.00-6.00</td> </tr> <tr> <td>RED CELL DISTRIBUTION WIDTH& lt;/td> <td>14.5 %</td> <td>11.0- 15.6</td> </tr> <tr> <td>WHITE BLOOD CELL</td> <td>5.6 k/cumm</td> <td& gt;5.0-10.0</td> </tr> <tr> <td> HEMOGLOBIN</td> <td>9.9 gm/dL</td> <td&gt ;12.0-16.0</td> </tr> <tr> <td> HEMATOCRIT</td> <td>29.7 %</td> < td>37.0-47.0</td> </tr> <tr> <td& gt;PLATELET COUNT</td> <td>161 k/cumm</td> & lt;td>150-400</td> </tr> <tr> <th colspan="10">METABOLIC PANEL, [facility] - 07/25/14 05:44</th> </tr> <tr> <td>POTASSIUM</td> <td>5.2 mmol/L</td> <td>3.5-5.3</td> </tr> <tr> <td>EST GFR (MDRD)</td&gt ; <td>59 mL/min</td> <td>> 59</td& gt; </tr> <tr> <td>ANION GAP</td&gt ; <td>8 mmol/L</td> <td>5-15</td> </tr> <tr> <td>EST CrCl (CG)</td> <td>52 mL/min</td> <td>> 59</td> </tr> <tr> <td>GLUCOSE</td> & lt;td>262 mg/dL</td> <td>70-99</td> </tr > <tr> <td>CALCIUM</td> <td> 8.3 mg/dL</td> <td>8.5-10.1</td> </tr> <tr> <td>BLOOD UREA NITROGEN</td> &lt ;td>22 mg/dL</td> <td>7-20</td> </tr&gt ; <tr> <td>CREATININE</td> <td> 1.0 mg/dL</td> <td>0.6-1.0</td> </tr> <tr> <td>SODIUM</td> <td>149 mmol/L</ td> <td>135-148</td> </tr> <tr&gt ; <td>CHLORIDE</td> <td>116 mmol/L</td&gt ; <td>98-110</td> </tr> <tr> <td>AST/SGOT</td> <td>6 Units/L</td> & lt;td>10-37</td> </tr> <tr> <td& gt;ALT/SGPT</td> <td>12 Units/L</td> <td& gt;< 66</td> </tr> <tr> <td& gt;CARBON DIOXIDE</td> <td>25 mmol/L</td> & lt;td>21-32</td> </tr> <tr> <td& gt;TOTAL PROTEIN</td> <td>5.5 gm/dL</td> &lt ;td>6.4-8.2</td> </tr> <tr> <td&gt ;ALBUMIN</td> <td>2.9 gm/dL</td> <td>3.4-5.0 </td> </tr> <tr> <td>BILI TOTAL& lt;/td> <td>0.4 mg/dL</td> <td>0.0-1.0&lt ;/td> </tr> <tr> <td>ALKALINE PHOSPHATASE TOTAL</td> <td>41 IU/L</td> < td>45-117</td> </tr> <tr><th colspan=&quot ;10">PHOSPHORUS - 07/25/14 05:44</th> </tr> & lt;tr> <td>PHOSPHORUS</td> <td>1.8 mg/dL& lt;/td> <td>2.5-4.9</td> </tr> < tr> <th colspan="10">MAGNESIUM - 07/25/14 05:44</ th> </tr> <tr> <td>MAGNESIUM</td& gt; <td>1.4 mg/dL</td> <td>1.8-2.4</td&gt ; </tr> <tr> <th colspan="10"> GLUCOSE (POC) - 07/25/14 05:51</th> </tr> <tr> <td>GLUCOSE (POC)</td> <td>258 mg/dL</td> <td>70-99</td> </tr> <tr> <th colspan="10">CAMPYLOBACTER ANTIGEN - 07/25/14 08:09</th > </tr> <tr> <td>Microbiology</td&gt ; <td> </td> <td /> </tr> <tr> <th colspan="10">STOOL LEUKOCYTES - 07/25 08:09</th> </tr> <tr> <td> Microbiology</td> <td> </td> <td /> </tr> <tr> <th colspan="10"> OVA AND PARASITES - 07/25/14 08:09</th> </tr> <tr& gt; <td>Microbiology</td> <td> </td> <td /> </tr> <tr> <th colspan="10">GLUCOSE (POC) - 07/25/14 10:20</th> </ tr> <tr> <td>GLUCOSE (POC)</td> < td>316 mg/dL</td> <td>70-99</td> </tr&gt ; <tr> <th colspan="10">HGB HCT - 11:17</th> </tr> <tr> <td> MEAN CELL VOLUME</td> <td>85.5 fl</td> < td>80.0-100.0</td> </tr> <tr> <td> HEMOGLOBIN</td> <td>10.4 gm/dL</td> <td& gt;12.0-16.0</td> </tr> <tr> <td> HEMATOCRIT</td> <td>31.2 %</td> < td>37.0-47.0</td> </tr> <tr> <th colspan="10">METABOLIC PANEL, BASIC - 07/25/14 11:17</th> </tr> <tr> <td>POTASSIUM</td> <td>4.6 mmol/L</td> <td>3.5-5.3</td> & lt;/tr> <tr> <td>EST GFR (MDRD)</td> <td>> 60 mL/min</td> <td>> 59</ td> </tr> <tr> <td>ANION GAP</td& gt; <td>5 mmol/L</td> <td>5-15</td> </tr> <tr> <td>EST CrCl (CG)</td> <td>58 mL/min</td> <td>> 59</td> </tr> <tr> <td>GLUCOSE</td> <td>252 mg/dL</td> <td>70-99</td> </tr&gt ; <tr> <td>CALCIUM</td> <td> 8.7 mg/dL</td> <td>8.5-10.1</td> </tr> <tr> <td>BLOOD UREA NITROGEN</td> < td>19 mg/dL</td> <td>7-20</td> </tr> <tr> <td>CREATININE</td> <td> 0.9 mg/dL</td> <td>0.6-1.0</td> </tr> & lt;tr> <td>SODIUM</td> <td>137 mmol/L< /td> <td>135-148</td> </tr> <tr& gt; <td>CHLORIDE</td> <td>109 mmol/L</td& gt; <td>98-110</td> </tr> <tr> <td>CARBON DIOXIDE</td> <td>23 mmol/L</td&gt ; <td>21-32</td> </tr> <tr> < th colspan="10">CBC W/DIFF - 01/22/17 19:30</th> </ tr> <tr> <td>EOSINOPHIL #</td> &lt ;td>0.2 k/cumm</td> <td>0.1-0.5</td> </tr> <tr> <td>EOSINOPHIL %</td> < td>2 %</td> <td>2-4</td> </tr&gt ; <tr> <td>GRANULOCYTE #</td> <td& gt;6.2 k/cumm</td> <td>2.0-9.0</td> </tr&gt ; <tr> <td>GRANULOCYTE %</td> <td>68 %</td> <td>50-75</td> & lt;/tr> <tr> <td>LYMPHOCYTE #</td> < td>2.3 k/cumm</td> <td>1.0-4.0</td> </tr ><tr> <td>LYMPHOCYTE %</td> < td>25 %</td> <td>20-30</td> </tr > <tr> <td>MEANCELL HGB</td> < td>26.7 pg</td> <td>27.0-33.0</td> </tr> <tr> <td>MEAN CELL HGB CONCENTRATION</td>< td>32.4 g/dL</td> <td>32.0-37.0</td> </ tr> <tr> <td>MEAN CELL VOLUME</td> <td>82.3 fl</td><td>80.0-100.0</td> </tr&gt ; <tr> <td>MONOCYTE #</td> <td> 0.5 k/cumm</td> <td>0.1-1.0</td> </tr> <tr> <td>MONOCYTE %</td> < td>5 %</td> <td>4-6</td> </tr&gt ; <tr> <td>RED BLOOD CELL</td> <td >4.57 m/cumm</td> <td>4.00-6.00</td> </ tr> <tr> <td>RED CELL DISTRIBUTION WIDTH</td& gt; <td>13.7 %</td> <td>11.0-15.6&lt ;/td> </tr> <tr> <td>WHITE BLOOD CELL</td> <td>9.1 k/cumm</td> <td>5.0- 10.0</td> </tr> <tr> <td> HEMOGLOBIN</td> <td>12.2 gm/dL</td> <td& gt;12.0-16.0</td> </tr> <tr> <td> HEMATOCRIT</td> <td>37.6 %</td> < td>37.0-47.0</td> </tr> <tr> <td& gt;PLATELET COUNT</td> <td>191 k/cumm</td><td> 150-450</td> </tr> <tr> <th colspan= "10">SED RATE - 01/22/17 19:30</th> </tr> <tr> <td>SED RATE</td> <td>11 mm/hr& lt;/td> <td>0-15</td> </tr> <tr& gt; <th colspan="10">METABOLIC PANEL, COMPREHN - 19:30</th> </tr> <tr> <td> POTASSIUM</td> <td>4.3 mmol/L</td> <td> 3.5-5.3</td> </tr> <tr> <td>EST GFR ( MDRD)</td> <td>34 mL/min</td> <td>& gt; 59</td> </tr> <tr> <td>ANION GAP</td> <td>12 mmol/L</td> <td>5-15& lt;/td> </tr> <tr> <td>EST CrCl (CG) </td> <td>38 mL/min</td> <td>> 59</td> </tr> <tr> <td>GLUCOSE&lt ;/td> <td>238 mg/dL</td> <td>70-99</td > </tr> <tr> <td>CALCIUM</td> <td>9.0 mg/dL</td> <td>8.5-10.1</td> </tr> <tr><td>BLOOD UREA NITROGEN</td> <td>24 mg/dL</td> <td>7-20</td> </tr> <tr> <td>CREATININE</td><td> 1.5 mg/dL</td> <td>0.6-1.0</td> </tr> <tr> <td>SODIUM</td> <td>139 mmol/L</td> <td>135-148</td> </tr> <tr> <td>CHLORIDE</td> <td>106 mmol/L< /td> <td>98-110</td> </tr> <tr&gt ; <td>AST/SGOT</td> <td>13 Units/L</td&gt ; <td>10-37</td> </tr> <tr> <td>ALT/SGPT</td> <td>< 6 Units/L</td&gt ; <td>< 66</td> </tr> <tr&gt ; <td>CARBON DIOXIDE</td> <td>21 mmol/L</ td> <td>21-32</td> </tr> <tr> <td>TOTAL PROTEIN</td> <td>6.7 gm/dL</td > <td>6.4-8.2</td> </tr> <tr> <td>ALBUMIN</td> <td>3.7gm/dL</td> <td>3.4-5.0</td> </tr> <tr><td& gt;BILI TOTAL</td> <td>0.7 mg/dL</td> <td >0.0-1.0</td> </tr> <tr> <td> ALKALINE PHOSPHATASE TOTAL</td> <td>81 IU/L</td> <td>45-117</td> </tr> <tr> < th colspan="10">CSF TOTAL PROTEIN - 01/24/17 19:05</th> </tr> <tr> <td>CSF TOTAL PROTEIN</td> <td>46 mg/dL</td> <td>15-45</td> </tr> <tr> <td>CSF COLOR-CENTRIFUGED</td> <td>COLORLESS </td> <td>COLORLESS</td&gt ; </tr> <tr> <th colspan="10"&gt ;CSF GLUCOSE - 01/24/17 19:05</th> </tr> <tr> <td>CSF GLUCOSE</td> <td>113 mg/dL</td&gt ; <td>40-70</td> </tr> <tr> <th colspan="10">CSF CELL CT/DIFF - 01/24/17 19:05</th> </tr> <tr> <td>CSF APPEARANCE</td& gt; <td>CLEAR </td> <td>CLEAR</td> </tr><tr> <td>CSF COLOR</td> < td>COLORLESS </td><td>COLORLESS</td> </tr> <tr> <td>CSF RBC</td> <td>168 #/ cumm</td> <td>0-5</td> </tr> <tr& gt; <td>CSF TUBE #</td> <td>#1 </td> <td /> </tr> <tr> <td> CSF VOLUME</td> <td>4.0 mL</td> <td /&gt ; </tr> <tr> <td>CSF WBC</td> <td>1 #/cumm</td> <td>0-5</td> </tr& gt; <tr> <th colspan="10">CSF CELL CT/ DIFF - 01/24/1719:05</th> </tr> <tr> & lt;td>CSF APPEARANCE</td> <td>CLEAR </td> & lt;td>CLEAR</td> </tr> <tr> <td& gt;CSF COLOR</td> <td>COLORLESS </td> <td >COLORLESS</td> </tr> <tr> <td&gt ;CSF RBC</td> <td>1 #/cumm</td> <td>0- 5</td> </tr> <tr> <td>CSF TUBE #& lt;/td> <td>#4 </td> <td/> </tr > <tr> <td>CSF VOLUME</td> <td& gt;4.0 mL</td> <td /> </tr> <tr> <td>CSF WBC</td> <td>2 #/cumm</td> <td>0-5</td> </tr> <tr> & lt;th colspan="10">GRAM STAIN - 01/24/17 19:05</th> & lt;/tr> <tr> <td>Microbiology</td> <td> </td> <td /> </tr> <tr& gt; <th colspan="10">CBC W/DIFF - 02/23/17 20:35</th > </tr> <tr><td>EOSINOPHIL #</td> <td>0.1 k/cumm</td> <td>0.1-0.5</td> </tr> <tr> <td>EOSINOPHIL %</td& gt; <td>1 %</td> <td>2-4</td> </tr><tr> <td>GRANULOCYTE #</td> <td>5.2 k/cumm</td> <td>2.0-9.0</td> </tr > <tr> <td>GRANULOCYTE%</td> <td>70 %</td> <td>50-75</td> & lt;/tr> <tr> <td>LYMPHOCYTE #</td> <td>1.7 k/cumm</td> <td>1.0-4.0</td> & lt;/tr> <tr> <td>LYMPHOCYTE %</td> <td>24 %</td> <td>20-30</td> & lt;/tr> <tr> <td>MEAN CELL HGB</td> <td>27.5 pg</td> <td>27.0-33.0</td> & lt;/tr> <tr> <td>MEAN CELL HGB CONCENTRATION</td& gt; <td>33.1 g/dL</td> <td>32.0-37.0</td& gt; </tr> <tr> <td>MEAN CELL VOLUME< /td> <td>83.0 fl</td> <td>80.0-100.0</ td> </tr> <tr> <td>MONOCYTE #</td ><td>0.4 k/cumm</td> <td>0.1-1.0</td> </tr> <tr> <td>MONOCYTE %</td&gt ; <td>5 %</td> <td>4-6</td> </tr> <tr> <td>RED BLOOD CELL</td> <td>4.11 m/cumm</td> <td>4.00-6.00</td> </tr> <tr> <td>RED CELL DISTRIBUTION WIDTH</td> <td>14.5 %</td> <td&gt ;11.0-15.6</td> </tr> <tr> <td> WHITE BLOOD CELL</td> <td>7.4 k/cumm</td> <td&gt ;5.0-10.0</td> </tr> <tr> <td> HEMOGLOBIN</td> <td>11.3 gm/dL</td> <td& gt;12.0-16.0</td> </tr> <tr> <td> HEMATOCRIT</td> <td>34.1 %</td> < td>37.0-47.0</td> </tr> <tr> <td& gt;PLATELET COUNT</td> <td>148 k/cumm</td> & lt;td>150-450</td> </tr> <tr> < th colspan="10">METABOLIC PANEL, [facility] - 02/23/17 20:35</th& gt; </tr> <tr> <td>POTASSIUM</td&gt ; <td>4.5 mmol/L</td> <td>3.5-5.3</td&gt ; </tr> <tr> <td>EST GFR (MDRD)</td> <td>40mL/min</td> <td>> 59</td&gt ; </tr> <tr> <td>ANION GAP</td> <td>14 mmol/L</td> <td>5-15</td> &lt ;/tr> <tr> <td>EST CrCl (CG)</td> <td>44 mL/min</td> <td>> 59</td> </tr> <tr> <td>GLUCOSE</td> &lt ;td>317 mg/dL</td> <td>70-99</td> </tr& gt; <tr> <td>CALCIUM</td> <td>9.3 mg/ dL</td> <td>8.5-10.1</td> </tr> & lt;tr> <td>BLOOD UREA NITROGEN</td> <td> 25 mg/dL</td> <td>7-20</td> </tr> & lt;tr> <td>CREATININE</td> <td>1.3 mg/dL& lt;/td> <td>0.6-1.0</td> </tr> < tr> <td>SODIUM</td> <td>137 mmol/L</td > <td>135-148</td> </tr> <tr> <td>CHLORIDE</td> <td>104 mmol/L</td&gt ; <td>98-110</td> </tr> <tr> <td>AST/SGOT</td> <td>13 Units/L</td> <td>10-37</td> </tr> <tr> <td>ALT/SGPT</td> <td>18 Units/L</td> <td>< 66</td> </tr> <tr> & lt;td>CARBON DIOXIDE</td> <td>19 mmol/L</td> <td>21-32</td> </tr> <tr> <td> TOTAL PROTEIN</td> <td>6.7 gm/dL</td> <td >6.4-8.2</td> </tr> <tr> <td> ALBUMIN</td> <td>3.3 gm/dL</td> <td> 3.4-5.0</td> </tr> <tr> <td>BILI TOTAL</td> <td>0.6 mg/dL</td> <td>0.0- 1.0</td> </tr> <tr> <td>ALKALINE PHOSPHATASE TOTAL</td> <td>92 IU/L</td> < td>45-117</td> </tr> <tr> <th colspan="10">TROPONIN I - 02/23/17 20:35</th> </tr& gt; <tr> <td>TROPONIN I</td> <td& gt;< 0.02 ng/mL</td> <td>< 0.07</td> </tr><tr> <th colspan="10">GLUCOSE, METER - 03/28/17 15:18</th> </tr> <tr> <td >GLUCOSE, METER</td> <td>548 </td> <td >65-99</td> </tr> <tr> <th colspan="10">CBC WITH PLATELET AND DIFFERENTIAL - 03/28/17 15:25&lt ;/th> </tr> <tr> <td>SEGS</td&gt ; <td>58.1 %</td> <td>NRG</td&gt ; </tr> <tr> <td>*BASOPHILS</td> <td>1.1 %</td> <td>NRG</td> </tr> <tr> <td>*EOSINOPHILS</td> <td>2.8 %</td> <td>NRG</td> </tr> <tr> <td>AUTOMATED DIFF</td&gt ; <td>PERFORMED </td> <td>NRG</td> </tr> <tr> <td>*LYMPHOCYTES</td> <td>30.6 %</td> <td>NRG</td> </tr> <tr> <td>*MONOCYTES</td> <td>7.4 %</td> <td>NRG</td> & lt;/tr> <tr> <td>*ABSOLUTE BASOPHILS</td> <td>0.10 10*3/uL</td> <td>0.00-0.20</td& gt; </tr> <tr> <td>*ABSOLUTE EOSINOPHILS</td> <td>0.20 10*3/uL</td> < td>0.00-0.50</td> </tr> <tr> <td& gt;*ABSOLUTE LYMPHOCYTES</td> <td>2.50 10*3/uL</td> <td>1.00-3.00</td> </tr> <tr> <td>*ABSOLUTE MONOCYTES</td> <td>0.60 10*3/uL& lt;/td> <td>0.30-1.00</td> </tr> &lt ;tr> <td>*ABSOLUTE NEUTROPHILS</td> <td> 4.80 10*3/uL</td> <td>1.80-7.80</td> </tr& gt; <tr> <td>MPV</td> <td>8.8 fL& lt;/td> <td>7.4-10.4</td> </tr> < tr> <td>PLATELETS</td> <td>139 10*3/uL&lt ;/td> <td>159-386</td> </tr> <tr& gt; <td>WBC</td> <td>8.2 10*3/uL</td> <td>3.6-11.2</td> </tr> <tr> <td>RBC</td> <td>3.98 </td> < td>3.63-4.92</td> </tr> <tr> <td> HEMOGLOBIN</td> <td>10.6 </td> <td> 11.0-14.3</td> </tr> <tr> <td> HEMATOCRIT</td> <td>32.4 %</td> < td>31.2-41.9</td> </tr> <tr> <td& gt;MCV</td> <td>81.3 fL</td> <td>79.0- 98.0</td> </tr> <tr> <td>MCH</ td><td>26.7 pg</td> <td>27.0-33.0</td> </tr> <tr> <td>MCHC</td> &lt ;td>32.9 </td> <td>32.0-36.0</td> </tr& gt; <tr> <td>RDW</td> <td>15.7 %</td> <td>12.3-17.0</td> </tr> <tr> <td>RDWSD</td> <td>45.1 & lt;/td> <td>37.1-47.8</td> </tr> &lt ;tr> <th colspan="10">VENOUS BLOOD GAS - 03/28/17 15 :25</th> </tr> <tr> <td>*INGA. BASE EXCESS</td> <td>-7.7 </td> <td>- 3.0-3.0</td> </tr> <tr> <td>INGA. BICARBONATE</td> <td>17.3 meq/L</td> <td& gt;22.0-29.0</td> </tr> <tr> <td> INGA. O2 SATURATION</td> <td>96.8 %</td><td >70.0-80.0</td> </tr> <tr> <td&gt ;VENOUS PCO2</td> <td>35.2 mm[Hg]</td> < td>38.0-50.0</td> </tr> <tr> <td& gt;*VENOUS PH</td> <td>7.312 </td> <td&gt ;7.320-7.430</td> </tr> <tr> <td> *VENOUS PO2</td> <td>85 mm[Hg]</td> <td& gt;38-42</td> </tr> <tr> <td>* VENOUS TCO2</td> <td>16.3 </td> <td> 23.0-30.0</td> </tr> <tr> <th colspan="10">KETONE (B-HYDROXY) WB - 03/28/17 15:25</th> </tr> <tr> <td>KETONE (B-HYDROXY) WB</td > <td><0.6mmol/L</td> <td>< 0.6</td> </tr> <tr> <th colspan="10& quot;>DKA CALCULATIONS - 03/28/17 15:25</th> </tr> <tr> <td>SODIUM</td> <td>130 mmol/L&lt ;/td> <td>136-145</td> </tr> <tr> <td>BUN</td> <td>37 </td> &lt ;td>7-18</td> </tr> <tr> <td> GLUCOSE</td> <td>616 </td> <td>65-99& lt;/td> </tr> <tr> <td>SODIUM, CORRECTED</td> <td>138 mmol/L</td> <td&gt ;136-145</td> </tr> <tr> <td> OSMOLALITY, CALCULATED</td> <td>307 mosm/kg</td> <td>278-305</td> </tr> <tr> <thcolspan="10">COMPREHENSIVE METABOLIC PANEL - 03/28/17 15:25 </th> </tr> <tr> <td>BILIFUBIN TOTAL</td> <td>0.50 </td> <td>0.20- 1.00</td> </tr> <tr> <td>TOTAL PROTEIN</td> <td>6.4 </td> <td>6.4-8.2 </td></tr> <tr> <td>ALBUMIN</td> <td>3.3 </td> <td>3.4-5.0</td> </tr> <tr> <td>*GLOBULIN</td> & lt;td>3.1 </td> <td>2.3-3.5</td> </tr&gt ; <tr> <td>*A/G RATIO</td> <td> 1.1 </td> <td>1.5-2.2</td> </tr> & lt;tr> <td>ALK PHOS</td> <td>92 U/L</ td> <td>46-116</td> </tr> <tr&gt ; <td>ALT (SGPT)</td> <td>19 U/L</td> <td>16-63</td> </tr> <tr> <td>AST (SGOT)</td> <td>19 U/L</td> <td>15-37</td> </tr> <tr> < th colspan="10">MAGNESIUM - 03/28/17 15:25</th> </ tr> <tr> <td>MAGNESIUM</td> <td >1.6</td> <td>1.8-2.4</td> </tr> <tr> <th colspan="10">PHOSPHORUS - 03/28/17 15:25</th> </tr> <tr> <td> PHOSPHORUS</td> <td>2.7 </td> <td>2.6- 4.7</td> </tr> <tr> <th colspan=& quot;10">TROPONIN-I - 03/28/17 15:25</th> </tr> <tr> <td>TROPONIN-I</td> <td>& lt;0.017 ng/mL</td> <td>0.000-0.056</td> </ tr> <tr> <th colspan="10">DRUG SCREEN PLASMA -03/28/17 15:25</th> </tr> <tr> <td>ALCOHOL</td> <td><0.003 </td> <td>NRG</td> </tr> <tr> <td> ACETAMINOPHEN</td> <td>7 </td><td>10-30</td& gt; </tr> <tr> <td>SALICYLATE</td&gt ; <td>1.2 </td> <td>2.8-20.0</td> </tr> <tr> <th colspan="10">GFR ESTIMATION - 03/28/17 15:25</th> </tr> <tr> <td>*GFR EST NON AFR CYMRO</td> <td>29 mL/min& lt;/td> <td>NRG</td> </tr> <tr&gt ; <td>*GRFA EST AFR AMER</td> <td>33 mL/min& lt;/td> <td>NRG</td> </tr> <tr&gt ; <th colspan="10">IRON PROFILE - 03/28/17 15:25</th > </tr> <tr> <td>*PERCENT SATURATION </td> <td>12 %</td> <td>20-55& lt;/td> </tr> <tr> <td>IRON</td& gt; <td>41 ug/dL</td> <td>50-170</td> </tr> <tr> <th colspan="10"> FERRITIN - 03/28/17 15:25</th> </tr> <tr> <td>FERRITIN</td> <td>55 ng/mL</td> <td>13-150</td> </tr> <tr> &lt ;th colspan="10">TSH - 03/28/17 15:25</th> </tr&gt ; <tr> <td>TSH</td> <td>1.636 u[IU] /L</td> <td>0.340-4.820</td> </tr> <tr> <th colspan="10">VITAMIN B12 & FOLATE - 03/28/1715:25</th> </tr> <tr> <td>VITAMIN B12</td> <td>301 pg/mL</td> < td>180-914</td> </tr> <tr> <th colspan="10">URINALYSIS (CULTURE PRN) - 03/28/17 16:22</th> </tr> <tr> <td>*URINE APPEARANCE</td > <td>CLEAR </td> <td>CLEAR</td> </tr> <tr> <td>*URINE BILIRUBIN</td> <td>NEGATIVE </td> <td>NEGATIVE</td> </tr> <tr> <td>*URINE BLOOD</td> <td>NEGATIVE </td> <td>NEGATIVE</td> </tr> <tr> <td>*URINE GLUCOSE</td> <td>>1000 </td> <td>NEGATIVE</td&gt ; </tr> <tr> <td>*URINE KETONES</td& gt; <td>NEGATIVE </td> <td>NEGATIVE</td& gt; </tr> <tr> <td>*URINE LEUKOCYTES&lt ;/td> <td>NEGATIVE </td> <td>NEGATIVE< /td> </tr> <tr> <td>URINE PH</td& gt; <td>5.5 </td> <td>5.0-8.0</td> </tr> <tr> <td>*URINE PROTEIN</td> <td>NEGATIVE </td> <td>NEGATIVE</td> &lt ;/tr> <tr> <td>URINE SPECIFIC GRAVITY</td> <td>1.010 </td> <td><=1.005->= 1.030</td> </tr> <tr> <td>*URINE UROBILINOGEN</td> <td>0.2 </td> <td> 0.2-1.0</td> </tr> <tr> <td>* URINE COLOR</td> <td>YELLOW </td> <td>STRAW/ YELL/DK YELL</td> </tr> <tr> <th colspan="10">URINE MICROSCOPIC - 03/28/17 16:22</th> & lt;/tr> <tr> <td>WBC</td> <td& gt;1-5 /[HPF]</td> <td>0-5</td> </tr> <tr> <td>RBC</td> <td>0-1 /[HPF] </td> <td>0-1</td> </tr> <tr& gt; <td>MICROSCOPIC EXAM PERFORMED</td> <td> PERFORMED </td> <td>NRG</td> </tr> <tr> <td>SQUAMOUS EP. CELLS</td> <td> FEW /[LPF]</td> <td>NEG-FEW</td> </tr> <tr> <td>BACTERIA</td> <td> MODERATE /[HPF]</td> <td>NEGATIVE</td> </tr > <tr> <th colspan="10">UR DRUGS OF ABUSE SCREEN - 03/28/17 16:22</th> </tr> <tr> <td>*COCAINE</td> <td>NEGATIVE ng/mL</td& gt; <td>NEG <150</td> </tr> <tr& gt; <td>*BARBITURATES</td> <td>NEGATIVE ng/ mL</td> <td>NEG <200</td> </tr> <tr> <td>*BENZODIAZEINE</td> <td& gt;NEGATIVE ng/mL</td> <td>NEG <200</td> </tr> <tr> <td>*AMPHETAMINE</td> <td>NEGATIVE ng/mL</td> <td>NEG <500</ td> </tr> <tr> <td>*CANNABINOIDS< /td> <td>NEGATIVE </td> <td>NEG < 50</td> </tr> <tr> <td>*OPIATES& lt;/td> <td>POSITIVE ng/mL</td> <td>NEG & amp;lt;300</td> </tr> <tr> <td>* PCP</td> <td>NEGATIVE ng/mL</td> <td> NEG <25</td> </tr> <tr> <th colspan="10">CULTURE URINE - 03/28/17 16:22</th> </tr > <tr> <td>CULTURE URINE</td> < td>>100,000 cfu/ml~ESBL + organism isolated.~Use Infection Control Precautions. </td> <td>NRG</td> </tr& gt; <tr> <th colspan="10">ISOLATE1 - 03/28 16:22</th> </tr> <tr> <td> ORGANISM</td> <td>Escherichia coli </td> &lt ;td>NRG</td> </tr> <tr> <td> Ampicillin</td> <td>>=32 </td> <td >NRG</td> </tr> <tr> <td>Ampicillin /sulbactam</td> <td>>=32 </td> <td >NRG</td> </tr> <tr> <td> Cefazolin</td> <td>>=64 </td> <td&gt ;NRG</td> </tr> <tr> <td>Cefepime</td > <td>=2 </td> <td>NRG</td> </tr> <tr> <td>Ceftazidime</td> < td><=1 </td> <td>NRG</td> </tr&gt ; <tr> <td>Ceftriaxone</td> <td&gt ;=32 </td> <td>NRG</td> </tr> &lt ;tr> <td>Ertapenem</td> <td><=0.5 </td > <td>NRG</td> </tr> <tr> <td>ESBL</td> <td>Pos </td> < td>NRG</td> </tr> <tr> <td> Gentamicin</td> <td>>=16 </td> <td >NRG</td> </tr> <tr> <td> Levofloxacin</td> <td>>=8 </td> < td>NRG</td> </tr> <tr> <td> Meropenem</td> <td><=0.25 </td> <td> NRG</td> </tr> <tr> <td> Nitrofurantoin</td> <td><=16 </td> <td >NRG</td> </tr> <tr> <td> Piperacillin/tazobactam</td> <td>=8 </td> & lt;td>NRG</td> </tr> <tr> <td> Tobramycin</td> <td>=8 </td> <td>NRG< /td> </tr> <tr> <td>Trimethoprim/ Sulfa</td> <td>>=320 </td> <td> NRG</td> </tr> <tr> <td>Aztreonam</ td> <td>=4 </td> <td>NRG</td> </tr> <tr> <th colspan="10"> GLUCOSE, METER - 03/28/17 17:08</th> </tr> <tr> <td>GLUCOSE, METER</td> <td>420 </td> <td>65-99</td> </tr> <tr> & lt;th colspan="10">GLUCOSE, METER - 03/28/17 18:25</th> </tr> <tr> <td>GLUCOSE, METER</td> <td>472 </td> <td>65-99</td> &lt ;/tr> <tr> <th colspan="10">GLUCOSE, METER - 03/28/17 19:49</th> </tr> <tr> <td>GLUCOSE, METER</td> <td>385 </td> <td>65-99</td> </tr> <tr> <th colspan=& quot;10">GLUCOSE, METER - 03/28/17 20:59</th> </tr> <tr> <td>GLUCOSE, METER</td> <td>213 & lt;/td> <td>65-99</td> </tr> <tr> <th colspan="10">GLUCOSE, METER - 03/28/17 22:22</th&gt ; </tr> <tr> <td>GLUCOSE, METER</td& gt; <td>85 </td> <td>65-99</td> & lt;/tr> <tr> <th colspan="10">GLUCOSE, METER - 03/29/17 00:16</th> </tr> <tr> <td>GLUCOSE, METER</td> <td>148 </td> <td>65-99</td> </tr> <tr> <th colspan="10">GLUCOSE, METER - 03/29/17 01:23</th> < /tr> <tr> <td>GLUCOSE, METER</td> <td>149 </td> <td>65-99</td> </tr&gt ; <tr> <th colspan="10">GLUCOSE, METER - 03/29/17 02:25</th> </tr> <tr> <td& gt;GLUCOSE, METER</td> <td>146 </td> <td& gt;65-99</td> </tr> <tr> <th colspan ="10">GLUCOSE, METER - 03/29/17 03:26</th> </tr&gt ; <tr> <td>GLUCOSE, METER</td> <td >119 </td> <td>65-99</td> </tr> <tr> <th colspan="10">CBC WITH PLATELET AND DIFFERENTIAL - 03/29/17 04:15</th> </tr> <tr> <td>SEGS</td> <td>59.2 %</td> <td>NRG</td> </tr> <tr> < td>*BASOPHILS</td> <td>0.7 %</td> & lt;td>NRG</td> </tr> <tr> <td> *EOSINOPHILS</td> <td>2.8 %</td> &lt ;td>NRG</td> </tr> <tr> <td> AUTOMATED DIFF</td> <td>PERFORMED </td> < td>NRG</td> </tr> <tr> <td>* LYMPHOCYTES</td> <td>30.8 %</td> &lt ;td>NRG</td> </tr> <tr> <td>* MONOCYTES</td> <td>6.5 %</td> <td >NRG</td> </tr> <tr> <td>*ABSOLUTE BASOPHILS</td> <td>0.00 10*3/uL</td> <td& gt;0.00-0.20</td> </tr> <tr> <td> *ABSOLUTE EOSINOPHILS</td> <td>0.20 10*3/uL</td> <td>0.00-0.50</td> </tr> <tr> &lt ;td>*ABSOLUTE LYMPHOCYTES</td> <td>2.30 10*3/uL</td& gt; <td>1.00-3.00</td> </tr> <tr&gt ; <td>*ABSOLUTE MONOCYTES</td> <td>0.50 10*3 /uL</td> <td>0.30-1.00</td> </tr> <tr > <td>*ABSOLUTE NEUTROPHILS</td> <td> 4.40 10*3/uL</td> <td>1.80-7.80</td> </tr& gt; <tr> <td>MPV</td> <td>9.0 fL</td> <td>7.4-10.4</td> </tr> & lt;tr> <td>PLATELETS</td> <td>135 10*3/uL </td> <td>159-386</td> </tr> < tr> <td>WBC</td> <td>7.4 10*3/uL</td& gt; <td>3.6-11.2</td> </tr> <tr> <td>RBC</td> <td>3.87 </td> <td> 3.63-4.92</td> </tr> <tr> <td> HEMOGLOBIN</td> <td>10.4 </td> <td> 11.0-14.3</td> </tr> <tr> <td> HEMATOCRIT</td> <td>31.1 %</td> < td>31.2-41.9</td> </tr> <tr> <td& gt;MCV</td> <td>80.4 fL</td> <td>79.0- 98.0</td> </tr> <tr> <td>MCH</td > <td>26.8 pg</td> <td>27.0-33.0</td& gt; </tr> <tr> <td>MCHC</td> <td>33.4 </td> <td>32.0-36.0</td> </tr> <tr> <td>RDW</td> <td>15.5 %</td> <td>12.3-17.0</td> </tr> <tr> <td>RDWSD</td> <td>43.3 & lt;/td> <td>37.1-47.8</td> </tr> &lt ;tr> <th colspan="10">RENAL FUNCTION PANEL - 03/29/17 04: 15</th> </tr> <tr> <td>SODIUM< /td> <td>138 mmol/L</td> <td>136-145</td > </tr> <tr> <td>POTASSIUM</td&gt ; <td>4.0 mmol/L</td> <td>3.5-5.1</td&gt ; </tr> <tr> <td>CHLORIDE</td> <td>109 mmol/L</td> <td>98-107</td> </tr> <tr> <td>TCO2</td> & lt;td>23.2 mmol/L</td> <td>21.0-32.0</td> </ tr> <tr> <td>*ANION GAP</td> < td>5.8 mmol/L</td> <td>8.0-16.0</td> </ tr> <tr> <td>BUN</td> <td> 22 </td> <td>7-18</td> </tr> < tr> <td>CREATININE</td> <td>1.06 </td& gt; <td>0.55-1.02</td> </tr> <tr&gt ; <td>*BUN/CREATININE RATIO</td> <td>20.8 & lt;/td> <td>9.1-17.0</td> </tr> < tr> <td>GLUCOSE</td> <td>113 </td> <td>65-99</td> </tr> <tr> <td>CALCIUM</td> <td>8.6 </td> &lt ;td>8.5-10.1</td> </tr> <tr> <td> ALBUMIN</td> <td>2.9 </td> <td>3.4-5.0 </td> </tr> <tr> <td>PHOSPHORUS& lt;/td> <td>1.6 </td> <td>2.6-4.7</td& gt; </tr> <tr> <th colspan="10">GFR ESTIMATION - 03/29/17 04:15</th> </tr> <tr> <td>*GFR EST NON AFR CYMRO</td> <td>53 mL/ min</td> <td>NRG</td> </tr> <tr& gt; <td>*GRFA EST AFR AMER</td> <td>61 mL/ min</td> <td>NRG</td> </tr> < tr> <th colspan="10">GLUCOSE, METER - 03/29/17 04:34 </th> </tr> <tr> <td>GLUCOSE, METER&lt ;/td> <td>109 </td> <td>65-99</td> </tr> <tr> <th colspan="10"> GLUCOSE, METER - 03/29/17 06:29</th> </tr> <tr> <td>GLUCOSE, METER</td> <td>130 </td&gt ; <td>65-99</td> </tr> <tr> <th colspan="10">GLUCOSE, METER - 03/29/17 07:22</th&gt ; </tr> <tr> <td>GLUCOSE, METER</td& gt; <td>120 </td> <td>65-99</td> </tr> <tr> <th colspan="10">GLUCOSE, METER - 03/29/17 09:33</th> </tr> <tr> <td >GLUCOSE, METER</td> <td>225 </td> <td>65-99 </td> </tr> <tr> <th colspan=" 10">GLUCOSE, METER - 03/29/17 10:54</th> </tr> <tr> <td>GLUCOSE, METER</td> <td> 200 </td> <td>65-99</td> </tr> &lt ;tr> <th colspan="10">CHEM/HEM PROFILE-BEDSIDE - 09:33</th> </tr> <tr> <td> POTASSIUM</td> <td>5.4 mmol/L</td> <td&gt ;3.5-5.3</td> </tr> <tr> <td> METHOD</td> <td>Bedside </td> <td /> </tr> <tr> <td>ANION GAP</td> < td>17 mmol/L</td> <td>10-20</td> </tr&gt ; <tr> <td>METHOD</td> <td> Bedside </td> <td /> </tr> <tr> <td>GLUCOSE</td> <td>266 mg/dL</td> <td>70-99</td> </tr> <tr> <td>BLOOD UREA NITROGEN</td> <td>21 mg/dL</td&gt ; <td>7-20</td> </tr> <tr> <td>CREATININE</td> <td>1.0 mg/dL</td> <td>0.6-1.0</td> </tr> <tr> <td>HEMOGLOBIN</td> <td>14.6 gm/dL</td> <td>12.0-16.0</td> </tr> <tr> <td>HEMATOCRIT</td> <td>43.0 %</td> <td>37.0-47.0</td> </tr> <tr> <td>SODIUM</td> <td>138 mmol/L</td> <td>135-148</td> </tr> <tr> <td>CHLORIDE</td> <td>105 mmol/L</td> <td>98-110</td> </tr> <tr> &lt ;td>CARBON DIOXIDE</td> <td>22 mmol/L</td> <td>21-32</td> </tr> <tr> < td>CALCIUM IONIZED</td> <td>4.8 mg/dL</td> <td>4.5-5.3</td> </tr> <tr> & lt;th colspan="10">CBC W/DIFF - 08/30/17 09:40</th> & lt;/tr> <tr> <td>BASOPHIL #</td> & lt;td>0.0 k/cumm</td> <td>0.0-0.2</td> < /tr> <tr> <td>BASOPHIL %</td> <td>0.4 %</td> <td>0-1</td> < /tr> <tr> <td>EOSINOPHIL #</td> & lt;td>0.2 k/cumm</td> <td>0.1-0.5</td> </tr > <tr> <td>EOSINOPHIL %</td> <td>2.2 %</td> <td>2-4</td> </tr> <tr> <td>GRANULOCYTE #</td> <td>6.4 k/cumm</td> <td>2.0-9.0</td> & lt;/tr> <tr> <td>GRANULOCYTE %</td&gt ; <td>69.1 %</td> <td>50-75</td& gt; </tr> <tr> <td>LYMPHOCYTE #</td& gt; <td>2.2 k/cumm</td> <td>1.0-4.0</td& gt; </tr> <tr> <td>LYMPHOCYTE % </td> <td>23.4 %</td> <td>20- 30</td> </tr> <tr> <td>MEAN CELL HGB</td> <td>26.4 pg</td> <td>27.0-33.0</ td> </tr> <tr> <td>MEAN CELL HGB CONCENTRATION</td> <td>32.7 g/dL</td> <td >32.0-37.0</td> </tr> <tr> <td&gt ;MEAN CELL VOLUME</td> <td>80.9 fl</td> < td>80.0-100.0</td> </tr> <tr> <td >MONOCYTE #</td> <td>0.4 k/cumm</td> < td>0.1-1.0</td> </tr> <tr> <td> MONOCYTE %</td> <td>4.6 %</td> <td>4-6</td> </tr> <tr> < td>MEAN PLATELET VOLUME</td> <td>10.5 fl</td> <td>8.5-10.9</td> </tr> <tr> <td>RED BLOOD CELL</td> <td>5.03 m/cumm</td&gt ; <td>4.00-6.00</td> </tr> <tr> <td>RED CELL DISTRIBUTION WIDTH</td> <td> 13.6 %</td> <td>11.0-15.6</td> </tr > <tr> <td>WHITE BLOOD CELL</td> & lt;td>9.3 k/cumm</td> <td>5.0-10.0</td> &lt ;/tr> <tr> <td>HEMOGLOBIN</td> &lt ;td>13.3 gm/dL</td> <td>12.0-16.0</td> < /tr> <tr> <td>HEMATOCRIT</td> < td>40.7 %</td> <td>37.0-47.0</td> & lt;/tr> <tr> <td>NRBC %</td> <td>0.0 /100 WBC</td> <td>0.0-0.0</td> </tr> <tr> <td>PLATELET COUNT</td> <td>196 k/cumm</td> <td>150-400</td> &lt ;/tr> <tr> <td>IMMATURE GRANULOCYTE %< /td> <td>0.3 %</td> <td>0.0-0.6& lt;/td> </tr> <tr> <td>IMMATURE GRANULOCYTE #</td> <td>0.03 k/cumm</td> <td& gt;0.00-0.09</td> </tr> <tr> <th colspan ="10">THYROID STIM HORMONE (TSH) - 08/30/17 09:40</th> </tr> <tr> <td>THYROID STIM HORMONE (TSH)&lt ;/td> <td>0.89 uIU/mL</td> <td>0.34-4.82& lt;/td> </tr> <tr> <th colspan="10 ">VITAMIN D 25-HYDROXY - 08/30/17 09:40</th> </tr> <tr> <td>VITAMIN D 25-HYDROXY</td> < td>7.2 ng/mL</td> <td>30.0-100.0</td> </ tr> <tr> <th colspan="10">VITAMIN B12 - 09:40</th> </tr> <tr> <td> VITAMIN B12</td> <td>414 pg/mL</td> <td& gt;211-911</td> </tr> <tr> <th colspan="10">HEMOGLOBIN A1C - 08/30/17 09:40</th> < /tr> <tr> <td>HEMOGLOBIN A1C</td> <td>9.5 %</td> <td>< 5.7</td> </tr> <tr> <th colspan="10"> URINALYSIS, ROUTINE - 08/30/17 10:30</th> </tr> <tr > <td>UA LEUKOCYTE ESTERASE DIPSTICK</td> < td>NEGATIVE </td> <td>NEGATIVE</td> </tr > <tr> <td>UANITRITE DIPSTICK</td> <td>POSITIVE </td> <td>NEGATIVE</td> & lt;/tr> <tr> <td>UA PROTEIN DIPSTICK</td> & lt;td>TRACE </td> <td>NEGATIVE</td> </tr > <tr> <td>UA GLUCOSE DIPSTICK</td> <td>4+ </td> <td>NEGATIVE</td> </ tr> <tr> <td>UA KETONE DIPSTICK</td> <td>1+ </td> <td>NEGATIVE</td> </ tr> <tr> <td>UA UROBILINOGEN DIPSTICK</td> <td>NORMAL</td> <td>NORMAL</td> </tr> <tr> <td>UA BILIRUBIN DIPSTICK</td > <td>NEGATIVE </td> <td>NEGATIVE</td& gt; </tr> <tr> <td>UA BLOOD DIPSTICK&lt ;/td> <td>NEGATIVE </td> <td>NEGATIVE</ td> </tr> <tr> <td>UA SPECIFIC GRAVITY&lt ;/td> <td>1.023 </td> <td>1.015-1.025</ td> </tr> <tr> <td>URPH</td> <td>6.0 </td> <td>5.0-7.0</td> </tr> <tr> <th colspan="10">UA - 08/30/17 10:30</th> </tr> <tr> <td>UA BACTERIA</td> <td>5+ </td> <td>NEGATIVE</td> </tr> <tr> <td& gt;UA EPITHELIAL CELLS</td> <td>0 epi/hpf</td> <td>0 - 1+</td> </tr> <tr> & lt;td>UA RBC</td> <td>0 rbc/hpf</td> <td>0 - 3</td> </tr> <tr> <td>UA VOLUME FOR EXAM</td> <td>12.0 mL</td><td>(12mL STD)</td> </tr> <tr> <td>UA WBC& lt;/td> <td>10-20 wbc/hpf</td> <td>0 - 5& lt;/td> </tr> <tr> <td>WBC CLUMPS&lt ;/td> <td>PRESENT </td> <td>NEGATIVE</ td> </tr> <tr> <th colspan="10& quot;>UR DRUGS OF ABUSE SCREEN - 08/30/17 10:30</th> </tr&gt ; <tr> <td>UR AMPHETAMINES SCREEN</td> <td>NEG (<1000 ng/mL) </td> <td>NEGATIVE& lt;/td> </tr> <tr> <td>UR BARBITURATE SCREEN</td> <td>NEG (< 200 ng/mL) </ td> <td>NEGATIVE</td> </tr> <tr> <td>DRUGS OF ABUSE SCREEN COMMENT</td> <td> </td> <td /> </tr> <tr> <td>UR OPIATES SCREEN</td> <td>POS (> 300 ng/mL) </td> <td>NEGATIVE</td> </tr&gt ; <tr> <td>UR PHENCYCLIDINE (PCP) SCREEN</td> <td>NEG (< 25 ng/mL) </td> <td> NEGATIVE</td> </tr> <tr> <td>UR CANNABINOIDS (THC) SCREEN</td> <td>NEG (< 50 ng/mL ) </td> <td>NEGATIVE</td> </tr> & lt;tr> <td>UR COCAINE METABOLITE SCREEN</td> & lt;td>NEG (< 300 ng/mL) </td> <td>NEGATIVE</ td> </tr> <tr> <td>URMETHADONE SCREEN</td> <td>NEG (< 300 ng/mL) </td> <td>NEGATIVE</td> </tr> <tr> <td>UR BENZODIAZEPINE SCREEN</td> <td>NEG (&lt ; 200 ng/mL) </td> <td>NEGATIVE</td> </tr& gt; <tr> <th colspan="10">URINE CULTURE - 08/30/17 10:30</th> </tr> <tr> <td& gt;Microbiology</td> <td> </td> <td /&gt ; </tr> <tr> <th colspan="10"> GLUCOSE (POC) - 08/30/17 11:35</th> </tr> <tr> <td>GLUCOSE (POC)</td> <td>149 mg/dL</td& gt; <td>70-99</td> </tr> <tr> <th colspan="10">AMMONIA (NH3) - 08/30/17 13:21</th&gt ; </tr> <tr> <td>AMMONIA (NH3)</td> <td>10 mcmol/L</td> <td>11-32</td> </tr> <tr> <th colspan="10">GLUCOSE (POC) - 08/30/17 16:22</th> </tr> <tr> <td>GLUCOSE (POC)</td> <td>158 mg/dL</td> <td>70-99</td> </tr> <tr> & lt;th colspan="10">GLUCOSE (POC) - 08/30/17 20:38</th> </tr> <tr> <td>GLUCOSE (POC)</td> <td>213 mg/dL</td> <td>70-99</td> </tr> <tr> <th colspan="10">CBC W/ DIFF - 08/31/17 05:22</th> </tr> <tr> &lt ;td>BASOPHIL #</td> <td>0.0 k/cumm</td> < td>0.0-0.2</td> </tr> <tr> <td&gt ;BASOPHIL%</td> <td>0.2 %</td> <td>0-1</td> </tr> <tr> <td& gt;EOSINOPHIL #</td> <td>0.2k/cumm</td> < td>0.1-0.5</td> </tr> <tr> <td> EOSINOPHIL %</td> <td>1.9 %</td> <td>2-4</td> </tr> <tr> &lt ;td>GRANULOCYTE #</td> <td>5.7 k/cumm</td> <td>2.0-9.0</td> </tr> <tr> <td& gt;GRANULOCYTE %</td> <td>67.1 %</td&gt ; <td>50-75</td> </tr> <tr> <td>LYMPHOCYTE #</td> <td>2.0 k/cumm</td> <td>1.0-4.0</td> </tr> <tr> <td>LYMPHOCYTE %</td><td>23.5 %</td& gt; <td>20-30</td> </tr> <tr> <td>MEAN CELL HGB</td> <td>26.0 pg</td> <td>27.0-33.0</td> </tr> <tr> <td>MEAN CELL HGB CONCENTRATION</td> <td> 31.5 g/dL</td> <td>32.0-37.0</td> </tr> <tr> <td>MEAN CELL VOLUME</td> < td>82.6 fl</td> <td>80.0-100.0</td> </tr > <tr> <td>MONOCYTE #</td> <td& gt;0.6 k/cumm</td> <td>0.1-1.0</td> </tr&gt ; <tr> <td>MONOCYTE %</td> & lt;td>7.1 %</td> <td>4-6</td> </ tr> <tr> <td>MEAN PLATELET VOLUME</td> <td>10.6 fl</td> <td>8.5-10.9</td> </tr> <tr> <td>RED BLOOD CELL</td> <td>4.61 m/cumm</td> <td>4.00-6.00</td> </tr> <tr> <td>RED CELL DISTRIBUTION WIDTH</td> <td>13.8 %</td> <td&gt ;11.0-15.6</td> </tr> <tr> <td> WHITE BLOOD CELL</td> <td>8.5 k/cumm</td> & lt;td>5.0-10.0</td> </tr> <tr> < td>HEMOGLOBIN</td> <td>12.0 gm/dL</td> & lt;td>12.0-16.0</td> </tr> <tr> < td>HEMATOCRIT</td> <td>38.1 %</td> <td>37.0-47.0</td> </tr> <tr> <td>NRBC %</td> <td>0.0 /100 WBC</td> <td>0.0-0.0</td> </tr> <tr> <td>PLATELET COUNT</td> <td>166 k/cumm</td&gt ; <td>150-400</td> </tr> <tr> <td>IMMATURE GRANULOCYTE %</td> <td> 0.2 %</td> <td>0.0-0.6</td> </tr&gt ; <tr> <td>IMMATURE GRANULOCYTE #</td> <td>0.02 k/cumm</td> <td>0.00-0.09</td> & lt;/tr> <tr> <th colspan="10"> METABOLIC PANEL, BASIC - 08/31/17 05:22</th> </tr> &lt ;tr> <td>POTASSIUM</td> <td>3.8 mmol/L&lt ;/td> <td>3.5-5.3</td> </tr> <tr& gt; <td>EST GFR (MDRD)</td> <td>55 mL/min< /td> <td>> 59</td> </tr> < tr> <td>ANION GAP</td> <td>9 mmol/L</ td> <td>5-15</td> </tr> <tr> <td>EST CrCl (CG)</td> <td>59 mL/min</td> <td>> 59</td> </tr> <tr> <td>GLUCOSE</td> <td>163 mg/dL</td> <td>70-99</td> </tr> <tr> <td>CALCIUM</td> <td>8.8 mg/dL</td> <td>8.5-10.1</td> </tr> <tr> <td> BLOOD UREA NITROGEN</td> <td>14 mg/dL</td> & lt;td>7-20</td> </tr> <tr> <td&gt ;CREATININE</td> <td>1.0 mg/dL</td> <td& gt;0.6-1.0</td> </tr> <tr> <td> SODIUM</td> <td>138 mmol/L</td> <td> 135-148</td> </tr> <tr> <td>CHLORIDE& lt;/td> <td>107 mmol/L</td> <td>98-110&lt ;/td> </tr> <tr> <td>CARBON DIOXIDE& lt;/td> <td>22 mmol/L</td> <td>21-32</td> </tr> <tr> <th colspan="10"> MAGNESIUM - 08/31/17 05:22</th> </tr> <tr> <td>MAGNESIUM</td> <td>1.6 mg/dL</td> <td>1.8-2.4</td> </tr> <tr> <th colspan="10">GLUCOSE (POC) - 08/31/17 05:44</th> </tr> <tr> <td>GLUCOSE (POC)</td> & lt;td>148 mg/dL</td> <td>70-99</td> </tr > <tr> <th colspan="10">GLUCOSE (POC) - 08/31/17 10:56</th> </tr> <tr> <td >GLUCOSE (POC)</td> <td>242 mg/dL</td> & lt;td>70-99</td> </tr> <tr> <th colspan="10">ARTERIAL BLOOD GAS - 08/31/17 11:40</th> </tr> <tr> <td>ABG BASE EXCESS</td> & lt;td>-3.2 meq/L</td> <td>-3.0-3.0</td> &lt ;/tr><tr> <td>ABG BICARBONATE</td> <td >18.2 meq/L</td> <td>23.0-28.0</td> </tr&gt ; <tr> <td>ABG PCO2</td> <td> 24 mm Hg</td> <td>34-45</td> </tr> <tr> <td>ABG PH</td> <td>7.50 </ td> <td>7.35-7.45</td> </tr> <tr> <td>ABG PO2</td> <td>32 mm Hg</td> <td>75-100</td> </tr> <tr> <td>ABG O2 SATURATION</td> <td>72 %</td&gt ; <td>93-100</td> </tr> <tr> <thcolspan="10">PARATHYROID HORMONE (INTACT) - 08/31/17 15 :16</th> </tr> <tr> <td> PARATHYROID HORMONE (INTACT)</td> <td>72 pg/mL</td> <td>14-85</td> </tr> <tr> <th colspan="10">GLUCOSE (POC) - 08/31/17 16:13</th> </tr> <tr> <td>GLUCOSE (POC)</td> <td>239 mg/dL</td><td>70-99</td> </ tr> <tr> <th colspan="10">GLUCOSE (POC ) - 08/31/17 20:19</th> </tr> <tr> < td>GLUCOSE (POC)</td> <td>254 mg/dL</td> <td>70-99</td> </tr> <tr> <th colspan="10">CBC W/DIFF - 09/01/17 05:22</th> </tr& gt; <tr> <td>BASOPHIL #</td> <td> 0.0 k/cumm</td> <td>0.0-0.2</td> </tr>& lt;tr> <td>BASOPHIL %</td> <td> 0.3 %</td> <td>0-1</td> </tr> <tr> <td>EOSINOPHIL #</td> <td> 0.2 k/cumm</td> <td>0.1-0.5</td> </tr> & lt;tr> <td>EOSINOPHIL %</td> <td> 2.8 %</td> <td>2-4</td> </tr> <tr> <td>GRANULOCYTE #</td> <td>3.8 k/ cumm</td> <td>2.0-9.0</td> </tr> <tr> <td>GRANULOCYTE %</td> <td& gt;58.7 %</td> <td>50-75</td> </tr& gt; <tr> <td>LYMPHOCYTE #</td> <td >2.0 k/cumm</td> <td>1.0-4.0</td> </tr& gt; <tr> <td>LYMPHOCYTE %</td> <td>30.5 %</td> <td>20-30</td> </tr> <tr> <td>MEAN CELL HGB</td> <td>25.5 pg</td> <td>27.0-33.0</td> </tr> <tr> <td>MEAN CELL HGB CONCENTRATION </td> <td>31.1 g/dL</td> <td>32.0-37.0 </td> </tr> <tr> <td>MEAN CELL VOLUME</td> <td>81.8 fl</td> <td>80.0- 100.0</td> </tr> <tr> <td> MONOCYTE #</td> <td>0.5 k/cumm</td> <td& gt;0.1-1.0</td> </tr> <tr> <td>MONOCYTE %</td> <td>7.4 %</td> <td >4-6</td> </tr> <tr> <td>MEAN PLATELET VOLUME</td> <td>10.2 fl</td> <td >8.5-10.9</td> </tr> <tr> <td> RED BLOOD CELL</td> <td>4.40 m/cumm</td> &lt ;td>4.00-6.00</td> </tr> <tr> <td >RED CELL DISTRIBUTION WIDTH</td> <td>13.9 %< /td> <td>11.0-15.6</td> </tr> <tr > <td>WHITE BLOOD CELL</td> <td>6.5 k/ cumm</td> <td>5.0-10.0</td> </tr> <tr> <td>HEMOGLOBIN</td> <td>11.2 gm /dL</td> <td>12.0-16.0</td> </tr> <tr> <td>HEMATOCRIT</td> <td>36.0 & amp;#37;</td> <td>37.0-47.0</td> </tr> <tr> <td>NRBC %</td> <td& gt;0.0 /100 WBC</td> <td>0.0-0.0</td> </tr& gt; <tr> <td>PLATELET COUNT</td> < td>150 k/cumm</td> <td>150-400</td> </tr > <tr> <td>IMMATURE GRANULOCYTE %</td& gt; <td>0.3 %</td> <td>0.0-0.6</ td> </tr> <tr> <td>IMMATURE GRANULOCYTE #</td> <td>0.02 k/cumm</td> <td> 0.00-0.09</td> </tr><tr> <th colspan=" 10">METABOLIC PANEL, BASIC - 09/01/17 05:22</th> </tr&gt ; <tr> <td>POTASSIUM</td> <td> 3.4 mmol/L</td> <td>3.5-5.3</td> </tr> <tr> <td>EST GFR (MDRD)</td> <td>& gt; 60 mL/min</td> <td>> 59</td> </ tr> <tr> <td>ANION GAP</td> <td >10 mmol/L</td> <td>5-15</td> </tr> <tr> <td>EST CrCl (CG)</td> <td>& amp;gt; 60 mL/min</td> <td>> 59</td> & lt;/tr> <tr> <td>GLUCOSE</td> < td>161 mg/dL</td> <td>70-99</td> </tr> <tr> <td>CALCIUM</td> <td>8.0 mg/dL</td> <td>8.5-10.1</td> </tr> <tr> <td>BLOOD UREA NITROGEN</td> <td& gt;10 mg/dL</td> <td>7-20</td> </tr> <tr> <td>CREATININE</td> <td>0.9 mg/dL</td> <td>0.6-1.0</td> </tr> <tr> <td>SODIUM</td> <td>138 mmol/L& lt;/td> <td>135-148</td> </tr> < tr> <td>CHLORIDE</td> <td>107 mmol/L</td> <td>98-110</td> </tr> <tr> <td>CARBON DIOXIDE</td> <td>21 mmol/L</td> <td>21-32</td> </tr> <tr> <th colspan="10">HEPATIC FUNCTION PANEL - 09/01/17 05:22</ th> </tr> <tr><td>BILI UNCONJUGATED</td&gt ; <td>0.6 mg/dL</td> <td>0.0-0.7</td> </tr> <tr> <td>AST/SGOT</td>< td>16 Units/L</td> <td>10-37</td> </tr& gt; <tr> <td>ALT/SGPT</td> <td> 21 Units/L</td> <td>< 66</td> </tr& gt; <tr> <td>TOTAL PROTEIN</td> < td>6.5 gm/dL</td> <td>6.4-8.2</td> </tr& gt; <tr> <td>ALBUMIN</td> <td> 3.3 gm/dL</td> <td>3.4-5.0</td> </tr> <tr> <td>BILI TOTAL</td> <td>0.7 mg/dL </td> <td>0.0-1.0</td> </tr> < tr> <td>ALKALINE PHOSPHATASE TOTAL</td> <td& gt;79 IU/L</td> <td>45-117</td> </tr> <tr> <td>BILI CONJUGATED</td> <td>0.1 mg/ dL</td> <td>0.0-0.3</td> </tr> & lt;tr> <th colspan="10">PHOSPHORUS - 09/01/17 05:22& lt;/th> </tr> <tr> <td>PHOSPHORUS&lt ;/td> <td>2.3 mg/dL</td> <td>2.5-4.9</ td> </tr> <tr> <th colspan="10& quot;>MAGNESIUM - 09/01/17 05:22</th> </tr> <tr& gt; <td>MAGNESIUM</td> <td>1.7 mg/dL</td& gt; <td>1.8-2.4</td> </tr> <tr> & lt;th colspan="10">GLUCOSE (POC) - 09/01/17 05:40</th> </tr> <tr> <td>GLUCOSE (POC)</td> & lt;td>160 mg/dL</td> <td>70-99</td> </tr> <tr> <th colspan="10">GLUCOSE (POC) - 11:14</th> </tr> <tr> <td> GLUCOSE (POC)</td> <td>166 mg/dL</td> <td >70-99</td> </tr> <tr> <th colspan="10">GLUCOSE (POC) -09/01/17 17:47</th> </ tr> <tr> <td>GLUCOSE (POC)</td> & lt;td>194 mg/dL</td> <td>70-99</td> </tr > <tr> <th colspan="10">GLUCOSE (POC) - 09/01/17 20:37</th> </tr> <tr> <td& gt;GLUCOSE (POC)</td> <td>140 mg/dL</td> &lt ;td>70-99</td> </tr> <tr> <th colspan=& quot;10">CBC W/DIFF - 09/02/17 05:05</th> </tr> <tr> <td>BASOPHIL #</td> <td>0.0 k/ cumm</td><td>0.0-0.2</td> </tr> <tr&gt ; <td>BASOPHIL %</td> <td>0.3 &# 37;</td> <td>0-1</td> </tr> < tr> <td>EOSINOPHIL #</td> <td>0.2 k/cumm& lt;/td> <td>0.1-0.5</td> </tr> < tr> <td>EOSINOPHIL %</td> <td> 2.6 %</td> <td>2-4</td> </tr> <tr> <td>GRANULOCYTE #</td> <td>4.6 k/ cumm</td> <td>2.0-9.0</td> </tr> <tr> <td>GRANULOCYTE %</td> <td& gt;61.5 %</td> <td>50-75</td> </tr& gt; <tr> <td>LYMPHOCYTE #</td> <td >2.0 k/cumm</td> <td>1.0-4.0</td> </tr> <tr> <td>LYMPHOCYTE %</td> & lt;td>26.8 %</td> <td>20-30</td> & lt;/tr> <tr> <td>MEAN CELL HGB</td> <td>26.5 pg</td> <td>27.0-33.0</td> & lt;/tr> <tr> <td>MEAN CELL HGB CONCENTRATION</ td> <td>32.7 g/dL</td> <td>32.0-37.0</ td> </tr> <tr> <td>MEAN CELL VOLUME</td > <td>81.1 fl</td> <td>80.0-100.0</td& gt; </tr> <tr> <td>MONOCYTE #</td> <td>0.6 k/cumm</td> <td>0.1-1.0</td> </tr> <tr> <td>MONOCYTE %</td&gt ; <td>8.5 %</td> <td>4-6</td> </tr><tr> <td>MEAN PLATELET VOLUME</td> <td>10.8 fl</td> <td>8.5-10.9</td> </tr> <tr> <td>RED BLOOD CELL</td> <td>4.71 m/cumm</td> <td>4.00-6.00</td> </tr> <tr> <td>RED CELL DISTRIBUTION WIDTH</td> <td>13.8 %</td> <td>11.0- 15.6</td> </tr> <tr> <td>WHITE BLOOD CELL</td> <td>7.4 k/cumm</td> <td>5.0- 10.0</td> </tr> <tr> <td> HEMOGLOBIN</td> <td>12.5 gm/dL</td> <td& gt;12.0-16.0</td> </tr> <tr> <td> HEMATOCRIT</td> <td>38.2 %</td> < td>37.0-47.0</td> </tr> <tr> <td> NRBC %</td> <td>0.0 /100 WBC</td> & lt;td>0.0-0.0</td> </tr> <tr> <td >PLATELET COUNT</td> <td>127 k/cumm</td> <td>150-400</td> </tr> <tr> <td& gt;IMMATURE GRANULOCYTE %</td> <td>0.3%< /td> <td>0.0-0.6</td> </tr> <tr& gt; <td>IMMATURE GRANULOCYTE #</td> <td>0.02 k/ cumm</td> <td>0.00-0.09</td> </tr> <tr> <td>IMMATURE PLATELET FRACTION</td> <td>2.5 %</td> <td>1.1-6.1</td> </tr> <tr> <th colspan="10">RENAL FUNCTION PANEL - 09/02/17 05:05</th> </tr> <tr> <td>POTASSIUM</td> <td>3.9 mmol/L</td&gt ; <td>3.5-5.3</td> </tr> <tr> <td>EST GFR (MDRD)</td> <td>> 60 mL/min </td> <td>> 59</td> </tr> <tr> <td>ANION GAP</td> <td>13 mmol/L</td&gt ; <td>5-15</td> </tr> <tr> <td>EST CrCl (CG)</td> <td>> 60 mL/min< /td> <td>> 59</td> </tr> <tr&gt ; <td>GLUCOSE</td> <td>187 mg/dL</td> <td>70-99</td> </tr> <tr> <td>CALCIUM</td> <td>8.4 mg/dL</td> <td>8.5-10.1</td> </tr> <tr> <td >BLOOD UREA NITROGEN</td> <td>11 mg/dL</td> <td>7-20</td> </tr> <tr> < td>CREATININE</td> <td>0.9 mg/dL</td> &lt ;td>0.6-1.0</td> </tr> <tr> <td& gt;SODIUM</td> <td>139 mmol/L</td> <td&gt ;135-148</td> </tr> <tr> <td> CHLORIDE</td> <td>109 mmol/L</td> <td> 98-110</td> </tr> <tr> <td>CARBON DIOXIDE</td> <td>17 mmol/L</td> <td>21 -32</td> </tr> <tr> <td>ALBUMIN& lt;/td> <td>3.5 gm/dL</td> <td>3.4-5.0&lt ;/td> </tr> <tr> <td>PHOSPHORUS</ td> <td>3.2 mg/dL</td> <td>2.5-4.9</td > </tr> <tr> <th colspan="10"> MAGNESIUM - 09/02/17 05:05</th> </tr><tr> < td>MAGNESIUM</td> <td>2.1 mg/dL</td> < td>1.8-2.4</td> </tr> <tr> <th colspan="10">GLUCOSE (POC) - 09/02/17 05:21</th> </ tr> <tr> <td>GLUCOSE (POC)</td> & lt;td>208 mg/dL</td> <td>70-99</td> </tr > <tr> <th colspan="10">GLUCOSE (POC) - 09/02/17 11:25</th> </tr> <tr> <td >GLUCOSE (POC)</td> <td>295 mg/dL</td> & lt;td>70-99</td> </tr> <tr> <th colspan="10">GLUCOSE (POC) - 09/02/17 16:05</th> </tr& gt; <tr> <td>GLUCOSE (POC)</td> < td>252 mg/dL</td> <td>70-99</td> </tr&gt ; <tr> <th colspan="10">GLUCOSE (POC) - 21:30</th> </tr> <tr> <td> GLUCOSE (POC)</td> <td>173 mg/dL</td> <td>70- 99</td> </tr> <tr> <th colspan=&quot ;10">GLUCOSE (POC) - 09/03/17 00:11</th> </tr> <tr> <td>GLUCOSE (POC)</td> <td>188 mg/dL</td> <td>70-99</td> </tr> & lt;tr> <th colspan="10">GLUCOSE (POC) - 09/03/17 04: 33</th> </tr> <tr> <td>GLUCOSE ( POC)</td> <td>131 mg/dL</td> <td>70-99 </td> </tr> <tr> <th colspan="10& quot;>CBC W/DIFF - 01/ 05:16</th> </tr> <tr> <td>BASOPHIL #</td> <td>0.0 k/cumm</td& gt; <td>0.0-0.2</td> </tr> <tr> <td>BASOPHIL %</td> <td>0.4 &#37 ;</td> <td>0-1</td> </tr> <tr& gt; <td>EOSINOPHIL #</td> <td>0.3 k/cumm</td> <td>0.1-0.5</td> </tr> <tr> <td>EOSINOPHIL %</td> <td>4.8 % </td> <td>2-4</td> </tr> <tr& gt; <td>GRANULOCYTE #</td> <td>4.5 k/cumm&lt ;/td> <td>2.0-9.0</td> </tr> <tr> <td>GRANULOCYTE %</td> <td>63.4 &# 37;</td> <td>50-75</td> </tr> &lt ;tr> <td>LYMPHOCYTE #</td> <td>1.7 k/cumm& lt;/td> <td>1.0-4.0</td> </tr> < tr> <td>LYMPHOCYTE %</td> <td> 24.0 %</td> <td>20-30</td> </tr&gt ; <tr> <td>MEAN CELL HGB</td> <td& gt;25.8 pg</td> <td>27.0-33.0</td> </tr&gt ; <tr> <td>MEAN CELL HGB CONCENTRATION</td> <td>31.6 g/dL</td> <td>32.0-37.0</td> </tr> <tr> <td>MEAN CELL VOLUME</td& gt; <td>81.7 fl</td> <td>80.0-100.0</td& gt; </tr> <tr> <td>MONOCYTE #</td> <td>0.5 k/cumm</td> <td>0.1-1.0</td> </tr> <tr> <td>MONOCYTE %</td&gt ; <td>7.3 %</td> <td>4-6</td> </tr> <tr> <td>MEAN PLATELET VOLUME</td > <td>10.2 fl</td> <td>8.5-10.9</td&gt ; </tr> <tr> <td>RED BLOOD CELL</td> <td>4.49 m/cumm</td> <td>4.00-6.00</td& gt; </tr> <tr> <td>RED CELL DISTRIBUTIONWIDTH</td> <td>13.9 %</td> <td>11.0-15.6</td> </tr> <tr> <td>WHITE BLOOD CELL</td> <td>7.0 k/cumm</td&gt ; <td>5.0-10.0</td> </tr> <tr> <td>HEMOGLOBIN</td> <td>11.6 gm/dL</td> <td>12.0-16.0</td> </tr> <tr> <td>HEMATOCRIT</td> <td>36.7 %</td&gt ; <td>37.0-47.0</td> </tr> <tr> <td>NRBC %</td> <td>0.0 /100 WBC< /td> <td>0.0-0.0</td> </tr> <tr& gt; <td>PLATELET COUNT</td> <td>140 k/cumm& lt;/td> <td>150-400</td> </tr> < tr> <td>IMMATURE GRANULOCYTE %</td> < td>0.1 %</td> <td>0.0-0.6</td> < /tr> <tr> <td>IMMATURE GRANULOCYTE #</td> <td>0.01 k/cumm</td> <td>0.00-0.09</td&gt ; </tr> <tr> <td>IMMATURE PLATELET FRACTION</td> <td>1.9 %</td> <td& gt;1.1-6.1</td> </tr> <tr> <th colspan="10">METABOLIC PANEL, BASIC - 09/03/17 05:16</th> </tr> <tr><td>POTASSIUM</td> <td >4.1 mmol/L</td> <td>3.5-5.3</td> </tr& gt; <tr> <td>EST GFR (MDRD)</td> < td>> 60 mL/min</td> <td>> 59</td> </tr> <tr> <td>ANION GAP</td> <td>8 mmol/L</td> <td>5-15</td> </tr&gt ; <tr> <td>EST CrCl (CG)</td> <td& gt;> 60 mL/min</td> <td>> 59</td> </tr> <tr> <td>GLUCOSE</td> & lt;td>123 mg/dL</td> <td>70-99</td> </tr > <tr> <td>CALCIUM</td> <td> 8.3 mg/dL</td> <td>8.5-10.1</td> </tr> <tr> <td>BLOOD UREA NITROGEN</td> &lt ;td>10 mg/dL</td> <td>7-20</td> </tr&gt ; <tr> <td>CREATININE</td> <td> 0.9 mg/dL</td> <td>0.6-1.0</td> </tr> <tr> <td>SODIUM</td> <td>140 mmol/L</td> <td>135-148</td> </tr> <tr> <td>CHLORIDE</td> <td>110 mmol /L</td> <td>98-110</td> </tr> &lt ;tr> <td>CARBON DIOXIDE</td> <td>22 mmol/ L</td> <td>21-32</td> </tr> <tr> <th colspan="10">GLUCOSE (POC) - 09/03/17 10:56</th > </tr> <tr> <td>GLUCOSE (POC)</td&gt ; <td>219 mg/dL</td> <td>70-99</td> </tr> <tr> <th colspan="10"> CBC W/MANUAL DIFF - 09/08/17 14:45</th> </tr> <tr> <td>MEAN CELL HGB</td> <td>25.9 pg</td> <td>27.0-33.0</td> </tr> <tr> &lt ;td>MEAN CELL HGB CONCENTRATION</td> <td>31.6 g/dL</ td> <td>32.0-37.0</td> </tr> <tr& gt; <td>MEAN CELL VOLUME</td> <td>81.9 fl&lt ;/td> <td>80.0-100.0</td> </tr> < tr> <td>MEAN PLATELET VOLUME</td> <td> 10.3 fl</td> <td>8.5-10.9</td> </tr> < tr> <td>RED BLOOD CELL</td> <td>4.52 m/ cumm</td> <td>4.00-6.00</td></tr> <tr > <td>RED CELL DISTRIBUTION WIDTH</td> <td& gt;13.7 %</td> <td>11.0-15.6</td> < /tr> <tr> <td>WHITE BLOOD CELL</td> <td>7.3 k/cumm</td> <td>5.0-10.0</td> </ tr> <tr> <td>HEMOGLOBIN</td> < td>11.7 gm/dL</td> <td>12.0-16.0</td> </ tr> <tr> <td>HEMATOCRIT</td> < td>37.0 %</td> <td>37.0-47.0</td> & lt;/tr> <tr> <td>NRBC %</td> <td>0.0 /100 WBC</td> <td>0.0-0.0</td> </tr> <tr> <td>PLATELET COUNT</td> <td>202 k/cumm</td> <td>150-400</td> </tr> <tr> <td>IMMATURE GRANULOCYTE %& lt;/td> <td>0.1 %</td> <td>0.0- 0.6</td> </tr> <tr> <td>IMMATURE GRANULOCYTE #</td> <td>0.01 k/cumm</td> < td>0.00-0.09</td> </tr> <tr> <th colspan="10">MANUAL DIFF(O) - 09/08/17 14:45</th> < /tr> <tr> <td>BASOPHIL #</td> < td>0.1 k/cumm</td> <td>0.0-0.2</td> </tr&gt ; <tr> <td>BASOPHIL %</td> & lt;td>1.0 %</td> <td>0-1</td> </ tr> <tr> <td>EOSINOPHIL #</td> <td& gt;0.1 k/cumm</td> <td>0.1-0.5</td> </tr&gt ; <tr> <td>EOSINOPHIL %</td> <td>1.0 %</td> <td>2-4</td> < /tr> <tr> <td>GRANULOCYTE #</td> & lt;td>5.1 k/cumm</td> <td>2.0-9.0</td> < /tr> <tr> <td>LYMPHOCYTE #</td> & lt;td>1.8 k/cumm</td> <td>1.0-4.0</td> </tr > <tr> <td>LYMPHOCYTE %</td> <td>25.0 %</td> <td>20-30</td> </tr> <tr> <td>DIFFERENTIAL</td> <td>MANUAL </td> <td /> </tr> <tr> <td>MONOCYTE #</td> <td>0.2 k/cumm</td> <td>0.1-1.0</td> </tr> <tr> <td>MONOCYTE %</td> <td> 3.0 %</td> <td>4-6</td> </tr> <tr> <td>RBC MORPH</td> <td>NOTED & lt;/td> <td /> </tr> <tr> <td&gt ;SEGMENTED NEUTROPHIL %</td> <td>70 %</ td> <td>50-70</td> </tr> <tr> <td>REACTIVE LYMPH</td> <td>NOTED </td> <td /> </tr> <tr> <th colspan="10">METABOLIC PANEL, BASIC - 09/08/17 14:45</th> </tr> <tr> <td>POTASSIUM</td> <td>4.0 mmol/L</td> <td>3.5-5.3</td> </tr> <tr><td>EST GFR (MDRD)</td> < td>55 mL/min</td> <td>> 59</td> < /tr> <tr> <td>ANION GAP</td> <td>7 mmol/L</td> <td>5-15</td> </tr> & lt;tr> <td>EST CrCl (CG)</td> <td>59 mL/ min</td> <td>> 59</td> </tr> <tr> <td>GLUCOSE</td> <td>234 mg/ dL</td> <td>70-99</td> </tr> <tr&gt ; <td>CALCIUM</td> <td>9.0 mg/dL</td>& lt;td>8.5-10.1</td> </tr> <tr> < td>BLOOD UREA NITROGEN</td> <td>15 mg/dL</td> <td>7-20</td> </tr> <tr> & lt;td>CREATININE</td> <td>1.0 mg/dL</td> <td>0.6-1.0</td> </tr> <tr> < td>SODIUM</td> <td>139 mmol/L</td> <td >135-148</td> </tr> <tr> <td> CHLORIDE</td> <td>106 mmol/L</td> <td> 98-110</td> </tr> <tr> <td> CARBON DIOXIDE</td> <td>26 mmol/L</td> < td>21-32</td> </tr> <tr> <th colspan="10">METABOLIC PANEL, [facility] - 09/15/17 09:50</th> </tr> <tr> <td>POTASSIUM</td> <td>4.5 mmol/L</td> <td>3.5-5.3</td> </tr> <tr> <td>EST GFR (MDRD)</td> <td>40 mL/min</td> <td>> 59</td&gt ; </tr> <tr> <td>ANION GAP</td> <td>7 mmol/L</td> <td>5-15</td> & lt;/tr> <tr> <td>EST CrCl (CG)</td> <td>46 mL/min</td> <td>> 59</td> </tr> <tr> <td>GLUCOSE</td> &lt ;td>213 mg/dL</td> <td>70-99</td> </tr& gt; <tr> <td>CALCIUM</td> <td> 8.9 mg/dL</td> <td>8.5-10.1</td> </tr> <tr> <td>BLOOD UREA NITROGEN</td> < td>19 mg/dL</td> <td>7-20</td> </tr> <tr> <td>CREATININE</td> <td> 1.3 mg/dL</td> <td>0.6-1.0</td> </tr> & lt;tr> <td>SODIUM</td> <td>137 mmol/L< /td> <td>135-148</td> </tr> <tr& gt; <td>CHLORIDE</td> <td>105 mmol/L</td& gt; <td>98-110</td> </tr> <tr> <td>CARBON DIOXIDE</td> <td>25 mmol/L</td&gt ; <td>21-32</td> </tr> <tr> <th colspan="10">CBC - 09/15/17 09:50</th> &lt ;/tr> <tr> <td>MEAN CELL HGB</td> <td>26.0 pg</td> <td>27.0-33.0</td> < /tr> <tr> <td>MEAN CELL HGB CONCENTRATION</td& gt; <td>30.3 g/dL</td> <td>32.0-37.0</td&gt ; </tr> <tr> <td>MEAN CELL VOLUME</td&gt ; <td>85.6 fl</td> <td>80.0-100.0</td> </tr> <tr> <td>MEAN PLATELET VOLUME</ td> <td>10.7 fl</td> <td>8.5-10.9</td& gt; </tr> <tr> <td>RED BLOOD CELL</ td> <td>4.43 m/cumm</td> <td>4.00-6.00&lt ;/td> </tr> <tr> <td>RED CELL DISTRIBUTION WIDTH</td> <td>14.0 %</td> <td>11.0-15.6</td> </tr> <tr> <td>WHITE BLOOD CELL</td> <td>9.8 k/cumm</td&gt ; <td>5.0-10.0</td> </tr> <tr> <td>HEMOGLOBIN</td> <td>11.5 gm/dL</td&gt ; <td>12.0-16.0</td> </tr> <tr> <td>HEMATOCRIT</td> <td>37.9 %</td& gt; <td>37.0-47.0</td> </tr> <tr&gt ; <td>NRBC %</td> <td>0.0 /100 WBC& lt;/td> <td>0.0-0.0</td> </tr> < tr> <td>PLATELET COUNT</td> <td>186 k/ cumm</td> <td>150-400</td> </tr> <tr> <th colspan="10">URINE CULTURE - 09/16/17 11 :24</th> </tr> <tr> <td> Microbiology</td> <td> </td> <td /> </tr> <tr> <th colspan="10"> URINALYSIS, ROUTINE - 09/16/17 11:30</th> </tr> <tr > <td>UA LEUKOCYTE ESTERASEDIPSTICK</td> <td >NEGATIVE </td> <td>NEGATIVE</td> </tr> <tr> <td>UA NITRITE DIPSTICK</td> & lt;td>NEGATIVE </td> <td>NEGATIVE</td> < /tr> <tr> <td>UA PROTEIN DIPSTICK</td> <td>NEGATIVE </td> <td>NEGATIVE</td> </tr> <tr> <td>UA GLUCOSE DIPSTICK</td&gt ; <td>2+ </td> <td>NEGATIVE</td> </tr> <tr> <td>UA KETONE DIPSTICK</td&gt ; <td>NEGATIVE </td> <td>NEGATIVE</td&gt ; </tr> <tr> <td>UA UROBILINOGEN DIPSTICK</td> <td>NORMAL </td> <td> NORMAL</td> </tr> <tr> <td>UA BILIRUBIN DIPSTICK</td> <td>NEGATIVE </td> & lt;td>NEGATIVE</td> </tr> <tr> <td& gt;UA BLOOD DIPSTICK</td> <td>NEGATIVE </td> <td>NEGATIVE</td> </tr> <tr> & lt;td>UA SPECIFIC GRAVITY</td> <td>1.022 </td> <td>1.015-1.025</td> </tr> <tr> <td>UR PH</td> <td>6.0 </td> & lt;td>5.0-7.0</td> </tr> <tr> < th colspan="10">URINALYSIS, COMPLETE W/REFLEX TO CULTURE - 05:02</th> </tr> <tr> <td>COLOR& lt;/td> <td>YELLOW </td> <td>YELLOW</ td> </tr> <tr> <td>APPEARANCE</td > <td>CLEAR </td> <td>CLEAR</td> & lt;/tr> <tr> <td>SPECIFIC GRAVITY</td> <td>1.026 </td> <td>1.001-1.035</td> </tr> <tr> <td>PH</td> <td> 5.5 </td> <td>5.0-8.0</td> </tr> < tr> <td>GLUCOSE</td> <td>3+ </td> <td>NEGATIVE</td> </tr> <tr> <td>BILIRUBIN</td> <td>NEGATIVE </td> <td>NEGATIVE</td> </tr> <tr> <td>KETONES</td> <td>NEGATIVE</td> &lt ;td>NEGATIVE</td> </tr> <tr> <td& gt;OCCULT BLOOD</td> <td>NEGATIVE </td> < td>NEGATIVE</td> </tr> <tr> <td& gt;PROTEIN</td> <td>TRACE </td> <td> NEGATIVE</td> </tr> <tr> <td>NITRITE< /td> <td>NEGATIVE </td> <td>NEGATIVE</ td> </tr> <tr> <td>LEUKOCYTE ESTERASE</td> <td>NEGATIVE </td> <td> NEGATIVE</td> </tr> <tr> <td>WBC& lt;/td> <td>0-5 /HPF</td> <td>< OR =5</td> </tr> <tr> <td>RBC</td > <td>0-2 /HPF</td> <td>< OR=2</td& gt; </tr> <tr> <td>SQUAMOUS EPITHELIAL CELLS</td> <td>6-10 /HPF</td> <td>&amp ;lt; OR=5</td> </tr> <tr> <td> BACTERIA</td> <td>NONE SEEN /HPF</td> <td >NONE SEEN</td> </tr> <tr> <td&gt ;HYALINE CAST</td> <td>NONE SEEN /LPF</td> <td> NONE SEEN</td> </tr> <tr> <td>Misc. Result, see notes for description</td> <td>NO CULTURE INDICATED </td> <td>NRG</td> </tr> </tbody> </table> </text> <entry> <organizer moodCode="EVN" classCode="BATTERY"> <templateId root="[id number]" /> <id nullFlavor=& quot;NA" /> <code codeSystem="local" code="METABC " displayName="METABOLIC PANEL, COMPREHN" /> < statusCode code="completed" /> <component> < observation moodCode="EVN" classCode="OBS"> < templateId root="[id number]" /> <id nullFlavor="NA" /> <code codeSystem="local" code="K" displayName="POTASSIUM" /> < statusCode code="completed"/> <effectiveTime value=& quot;[id number]" /> <value unit="mmol/L" xsi: type="PQ" value="5.0" /> <referenceRange> <observationRange> <text>3.5-5.3</text> </observationRange> </referenceRange> </ observation> </component> <component> < observation moodCode="EVN" classCode="OBS"> < templateId root="[id number]" /> < id nullFlavor="NA" /> <code codeSystem="local&quot ; code="eGFR" displayName="EST GFR (MDRD)" /> & lt;statusCode code="completed" /><effectiveTime value=" [id number]" /> <value unit="mL/min" xsi:type=& quot;PQ" value="12" /> <interpretationCode codeSystem="local" code="*" /> < referenceRange> <observationRange> <text>& amp;gt; 59</text> </observationRange> </ referenceRange> </observation> </component> < component><observation moodCode="EVN" classCode="OBS"& gt; <templateId root="[id number]" /&gt ; <id nullFlavor="NA" /> <code codeSystem=" local" code="GAP" displayName="ANION GAP" /> <statusCode code="completed" /> <effectiveTime value="[id number]" /> <value unit="mmol/L" xsi:type="PQ" value="20" /> < interpretationCode codeSystem="local" code="*" /> <referenceRange> <observationRange> < text>5-15</text> </observationRange> </ referenceRange> </observation> </component> < component> <observation moodCode="EVN" classCode=" OBS"> <templateId root="[id number]& quot; /> <id nullFlavor="NA" /> <code codeSystem="local" code="eCrCl" displayName="EST CrCl ( CG)" /> <statusCode code="completed" /> <effectiveTime value="[id number]" /> <value unit="mL/min" xsi:type="PQ" value="13" /> <interpretationCode codeSystem="local" code="*" /&gt ; <referenceRange> <observationRange> <text>> 59</text> </observationRange> </referenceRange> </observation> </component> <component> <observation moodCode="EVN" classCode="OBS"> <templateId root=" [id number]" /> <id nullFlavor="NA& quot; /> <code codeSystem="local" code="GLU" displayName="GLUCOSE" /> <statusCode code=" completed" /> <effectiveTime value="[id number]" /> <value unit="mg/dL" xsi:type="PQ" value=& quot;299" /> <interpretationCode codeSystem="local&quot ; code="*" /> <referenceRange> < observationRange> <text>70-99</text> </ observationRange> </referenceRange> </observation&gt ; </component> <component> <observation moodCode ="EVN" classCode="OBS"> <templateId root=& quot;[id number]" /> <id nullFlavor=&quot ;NA" /> <code codeSystem="local" code="CA& quot; displayName="CALCIUM" /> <statusCode code="completed& quot; /> <effectiveTime value="[id number]" /> <value unit="mg/dL" xsi:type="PQ" value="8.2& quot; /> <interpretationCode codeSystem="local" code=& quot;*" /> <referenceRange> < observationRange> <text>8.5-10.1</text> & lt;/observationRange> </referenceRange> </ observation> </component> <component> < observation moodCode="EVN" classCode="OBS"> < templateId root="2.16.840.1.594814.10.20.22.4.2" /> < id nullFlavor="NA" /> <code codeSystem="local&quot ; code="BUN" displayName="BLOOD UREA NITROGEN" /> <statusCode code="completed" /> <effectiveTime value="507856777102" /> <value unit="mg/dL" xsi:type="PQ" value="60" /> < interpretationCode codeSystem="local" code="*" /> <referenceRange> <observationRange> <text&gt ;7-20</text> </observationRange> </ referenceRange> </observation> </component> < component> <observation moodCode="EVN" classCode=" OBS"> <templateId root="2.16.840.1.169694.10.20.22.4.2" / > <id nullFlavor="NA" /> <code codeSystem="local" code="CREAT" displayName="CREATININE " /> <statusCode code="completed" /> & lt;effectiveTime value="693367357676" /> <value unit=& quot;mg/dL" xsi:type="PQ" value="3.9" /> & lt;interpretationCode codeSystem="local" code="*" /> <referenceRange> <observationRange> <text& gt;0.6-1.0</text> </observationRange> </ referenceRange> </observation> </component> < component> <observation moodCode="EVN" classCode=" OBS"> <templateId root="2.16.840.1.863200.10.20.22.4.2& quot; /> <id nullFlavor="NA" /> <code codeSystem="local" code="NA" displayName="SODIUM" /> <statusCode code="completed" /> < effectiveTime value="037901956813" /> <value unit=&quot ;mmol/L" xsi:type="PQ" value="131" /> < interpretationCode codeSystem="local" code="*" /> <referenceRange> <observationRange> < text>135-148</text> </observationRange> </ referenceRange> </observation> </component> < component> <observation moodCode="EVN" classCode=" OBS"> <templateId root="2.16.840.1.855324.10.20.22.4.2& quot; /> <id nullFlavor="NA" /> <code codeSystem="local" code="CL" displayName="CHLORIDE&quot ; /> <statusCode code="completed" /> < effectiveTime value="377783628824" /> <value unit=&quot ;mmol/L" xsi:type="PQ" value="96" /> < interpretationCode codeSystem="local" code="*" /> <referenceRange> <observationRange> < text>98-110</text> </observationRange> </ referenceRange> </observation> </component> < component> <observation moodCode="EVN" classCode=" OBS"> <templateId root="2.16.840.1.846608.10.20.22.4.2& quot; /> <id nullFlavor="NA"/> <code codeSystem="local" code="AST" displayName="AST/SGOT& quot; /> <statusCode code="completed" /> & lt;effectiveTime value="882180619148" /> <value unit=& quot;Units/L" xsi:type="PQ" value="11" /> & lt;referenceRange> <observationRange> <text>10-37 </text> </observationRange> </referenceRange& gt; </observation> </component> <component> <observation moodCode="EVN" classCode="OBS"> <templateId root="2.16.840.1.833071.10.20.22.4.2" /> <id nullFlavor="NA" /> <codecodeSystem=" local" code="ALT" displayName="ALT/SGPT" /> <statusCode code="completed" /> <effectiveTime value="658780205366" /> <value unit="Units/L&quot ; xsi:type="PQ" value="11" /> <referenceRange > <observationRange> <text>< 66&lt ;/text> </observationRange> </referenceRange&gt ; </observation> </component> <component> <observation moodCode="EVN" classCode="OBS"> <templateId root="2.16.840.1.195303.10.20.22.4.2" /> <id nullFlavor="NA" /> <code codeSystem=" local" code="CO2" displayName="CARBON DIOXIDE" /> <statusCodecode="completed" /> < effectiveTime value="274802695861" /> <value unit="mmol /L" xsi:type="PQ" value="15" /> < interpretationCode codeSystem="local" code="*" /> <referenceRange> <observationRange> < text>21-32</text> </observationRange> </ referenceRange> </observation> </component> < component> <observation moodCode="EVN" classCode=" OBS"> <templateId root="2.16.840.1.058592.10.20.22.4.2& quot; /> <id nullFlavor="NA" /> <code codeSystem="local" code="TP" displayName="TOTAL PROTEIN " /> <statusCode code="completed" /> < effectiveTime value="528293938831" /> <value unit=&quot ;gm/dL" xsi:type="PQ" value="7.2" /> < referenceRange> <observationRange> <text> 6.4-8.2</text> </observationRange> </ referenceRange> </observation> </component> < component> <observation moodCode="EVN" classCode=" OBS"> <templateId root="2.16.840.1.142494.10.20.22.4.2& quot; /> <id nullFlavor="NA" /> <code codeSystem="local" code="ALB" displayName="ALBUMIN&quot ; /> <statusCode code="completed" /> < effectiveTimevalue="383139203411" /> <value unit=" gm/dL" xsi:type="PQ" value="4.1" /> < referenceRange> <observationRange> <text>3.4- 5.0</text> </observationRange> </ referenceRange> </observation> </component> < component> <observation moodCode="EVN" classCode=" OBS"> <templateId root="2.16.840.1.825624.10.20.22.4.2& quot; /> <id nullFlavor="NA" /> <code codeSystem="local" code="BILTOT" displayName="BILI TOTAL" /> <statusCode code="completed" /> <effectiveTime value="796308256084" /> <value unit="mg/dL" xsi:type="PQ" value="2.1" /> <interpretationCode codeSystem="local" code="*" /&gt ; <referenceRange> <observationRange> & lt;text>0.0-1.0</text> </observationRange> & lt;/referenceRange> </observation> </component> <component> <observation moodCode="EVN" classCode=& quot;OBS"> <templateId root=" 2.16.840.1.738827.10.20.22.4.2" /> <id nullFlavor="NA& quot; /> <code codeSystem="local" code="ALKP&quot ; displayName="ALKALINE PHOSPHATASE TOTAL" /> < statusCode code="completed" /> <effectiveTime value=& quot;343320377658" /> <value unit="IU/L" xsi:type=& quot;PQ" value="55" /><referenceRange> < observationRange> <text>45-117</text> &lt ;/observationRange> </referenceRange> </observation& gt; </component> </organizer> </entry> <entry> <organizer moodCode="EVN" classCode="BATTERY"> <templateId root="2.16.840.1.711669.10.20.22.4.1" /> &lt ;id nullFlavor="NA" /> <code codeSystem="local" code="MAG" displayName="MAGNESIUM" /> < statusCode code="completed" /> <component> < observation moodCode="EVN" classCode="OBS"> < templateId root="2.16.840.1.178087.10.20.22.4.2" /> < id nullFlavor="NA" /> <code codeSystem="local&quot ; code="MAG" displayName="MAGNESIUM" /> < statusCode code="completed" /> <effectiveTime value=& quot;148656229444" /> <value unit="mg/dL" xsi:type ="PQ" value="1.7" /> < interpretationCodecodeSystem="local" code="*" /> <referenceRange> <observationRange> < text>1.8-2.4</text> </observationRange> </ referenceRange> </observation> </component> </ organizer> </entry> <entry> <organizer moodCode="EVN " classCode="BATTERY"> <templateId root=" 2.16.840.1.737060.10..22.4.1" /> <idnullFlavor="NA" /> <code codeSystem="local" code="BETHYD" displayName="BETA HYDROXYBUTYRATE" /> <statusCode code=& quot;completed" /> <component> <observation moodCode="EVN" classCode="OBS"> <templateId root="2.16.840.1.345883.10..22.4.2" /> <id nullFlavor ="NA" /> <code codeSystem="local" code=" BETHYD" displayName="BETA HYDROXYBUTYRATE" /> < statusCode code="completed" /> <effectiveTime value=& quot;948247420933" /> <value unit="mmol/L" xsi: type="PQ" value="0.4" /> <referenceRange> <observationRange> <text>< 0.6</text> </observationRange> </referenceRange> &lt ;/observation> </component> </organizer> </entry> & lt;entry> <organizer moodCode="EVN" classCode="BATTERY& quot;> <templateId root="2.16.840.1.855887.10.20.22.4.1" /& gt; <id nullFlavor="NA" /> <code codeSystem=" local" code="LIP" displayName="LIPASE" /> < statusCode code="completed" /> <component> < observation moodCode="EVN" classCode="OBS"> < templateId root="2.16.840.1.422121.10.20.22.4.2" /> < id nullFlavor="NA" /> <code codeSystem="local&quot ; code="LIP" displayName="LIPASE" /> < statusCode code="completed" /> <effectiveTime value=& quot;848550253060" /> <value unit="Units/L" xsi: type="PQ" value="276" /> <referenceRange> <observationRange> <text>73-393</text&gt ; </observationRange> </referenceRange> & lt;/observation> </component> </organizer> </entry&gt ; <entry> <organizer moodCode="EVN" classCode=" BATTERY"> <templateId root="2.16.840.1.617506.10.20.22.4.1& quot; /> <id nullFlavor="NA" /> <code codeSystem ="local" code="TSH" displayName="THYROID STIM HORMONE ( TSH)" /> <statusCode code="completed" /> < component> <observation moodCode="EVN" classCode=" OBS"> <templateId root="2.16.840.1.106105.10.20.22.4.2& quot; /> <id nullFlavor="NA" /> <code codeSystem="local" code="TSH" displayName="THYROID STIM HORMONE (TSH)" /> <statusCode code="completed&quot ; /> <effectiveTime value="985187503104" /> < value unit="uIU/mL"xsi:type="PQ" value="0.83" /&gt ; <referenceRange> <observationRange> <text>0.34-4.82</text> </observationRange> </referenceRange> </observation> </component&gt ; </organizer> </entry> <entry> <organizer moodCode ="EVN" classCode="BATTERY"> <templateId root=& quot;2.16.840.1.314171.10.20.22.4.1" /> <id nullFlavor="NA& quot; /> <code codeSystem="local" code="HBA1C" displayName="HEMOGLOBIN A1C" /> <statusCode code=" completed" /><component> <observation moodCode="EVN " classCode="OBS"> <templateId root=" 2.16.840.1.167515.10.20.22.4.2" /> <id nullFlavor="NA& quot; /> <code codeSystem="local" code="HBA1C&quot ; displayName="HEMOGLOBIN A1C" /> <statusCode code=& quot;completed" /> <effectiveTime value="701412161522& quot; /> <value unit="%" xsi:type="PQ&quot ; value="7.0" /> <interpretationCode codeSystem=" local" code="*" /> <referenceRange> <observationRange> <text>< 5.7</text> </observationRange> </referenceRange> </ observation> </component> </organizer> </entry> & lt;entry> <organizer moodCode="EVN" classCode="BATTERY& quot;> <templateId root="2.16.840.1.372237.10.20.22.4.1" /& gt; <id nullFlavor="NA" /> <code codeSystem=" local" code="iTROPI" displayName="TROPONIN I BEDSIDE" / > <statusCode code="completed" /> <component&gt ; <observation moodCode="EVN" classCode="OBS"> <templateId root="2.16.840.1.797048.10.20.22.4.2" /> <id nullFlavor="NA" /> <code codeSystem=& quot;local" code="CMETHOD" displayName="METHOD" /> <statusCode code="completed" /> < effectiveTime value="303072321354" /> <value unit=&quot ;" xsi:type="PQ" value="Bedside" /> < referenceRange> <observationRange> <text /> </observationRange> </referenceRange> </ observation> </component> <component> < observation moodCode="EVN" classCode="OBS"> < templateId root="2.16.840.1.333168.10.20.22.4.2" /> < id nullFlavor="NA" /> <code codeSystem="local&quot ; code="TROPI" displayName="TROPONIN I" /> < statusCode code="completed" /> <effectiveTime value=& quot;491354913528" /> <value unit="ng/mL" xsi:type ="PQ" value="< 0.04" /> < referenceRange> <observationRange> <text> < 0.11</text> </observationRange> </ referenceRange> </observation> </component> </ organizer> </entry> <entry> <organizer moodCode="EVN " classCode="BATTERY"> <templateId root=" 2.16.840.1.734390.10.20.22.4.1" /> <id nullFlavor="NA&quot ; /> <code codeSystem="local" code="CBCD" displayName="CBC W/DIFF" /> <statusCode code=" completed" /> <component> <observation moodCode=& quot;EVN" classCode="OBS"> <templateId root=" 2.16.840.1.508651...22.4.2" /> <id nullFlavor="NA& quot; /> <code codeSystem="local" code="EO#" displayName="EOSINOPHIL #" /> <statusCode code=" completed" /> <effectiveTime value="522602110049" /> <value unit="k/cumm" xsi:type="PQ" value=& quot;0.1" /> <referenceRange> <observationRange&gt ; <text>0.1-0.5</text> </observationRange > </referenceRange> </observation> </ component> <component> <observation moodCode="EVN& quot; classCode="OBS"> <templateId root=" 2.16.840.1.348101.10.20.22.4.2" /> <id nullFlavor="NA& quot; /> <code codeSystem="local" code="EO&#37 ;" displayName="EOSINOPHIL %" /> < statusCode code="completed" /> <effectiveTime value=& quot;082822899273" /> <value unit="%" xsi: type="PQ" value="1" /> <interpretationCode codeSystem ="local" code="*" /> <referenceRange> <observationRange> <text>2-4</text> </observationRange> </referenceRange> </ observation> </component> <component> < observation moodCode="EVN" classCode="OBS"> < templateId root="2.16.840.1.357525.10.20.22.4.2" /> < id nullFlavor="NA" /> <code codeSystem="local&quot ; code="GR#"displayName="GRANULOCYTE #" /> < statusCode code="completed" /> <effectiveTime value=& quot;693451331393" /> <value unit="k/cumm" xsi: type="PQ" value="5.1" /> <referenceRange>& lt;observationRange> <text>2.0-9.0</text> </observationRange> </referenceRange> </ observation> </component> <component> < observation moodCode="EVN" classCode="OBS">< templateId root="2.16.840.1.492124.10.20.22.4.2" /> < id nullFlavor="NA" /> <code codeSystem="local&quot ; code="GR%" displayName="GRANULOCYTE %" /& gt; <statusCode code="completed" /> < effectiveTime value="105314339646" /> <value unit=&quot ;%" xsi:type="PQ" value="68" /> &lt ;referenceRange> <observationRange> <text>50-75</ text> </observationRange> </referenceRange> </observation> </component> <component> <observation moodCode="EVN" classCode="OBS"> <templateId root="2.16.840.1.526697...22.4.2" /> <id nullFlavor="NA" /> <code codeSystem=" local" code="LY#" displayName="LYMPHOCYTE #" /> <statusCode code="completed" /> < effectiveTime value="841706777926" /> <value unit=&quot ;k/cumm" xsi:type="PQ" value="1.7" /> < referenceRange> <observationRange> <text> 1.0-4.0</text> </observationRange> </ referenceRange> </observation> </component> < component> <observation moodCode="EVN" classCode="OBS&quot ;> <templateId root="2.16.840.1.822993.10.20.22.4.2" /& gt; <id nullFlavor="NA" /> <code codeSystem=& quot;local" code="LY%" displayName="LYMPHOCYTE & #37;" /> <statusCode code="completed" /> <effectiveTime value="123822443881" /> <value unit="%" xsi:type="PQ" value="23" /> <referenceRange> <observationRange> <text>20-30</text> </observationRange> &lt ;/referenceRange> </observation> </component> & lt;component><observation moodCode="EVN" classCode="OBS& quot;> <templateId root="2.16.840.1.090258.10.20.22.4.2&quot ; /> <id nullFlavor="NA" /> <code codeSystem=& quot;local" code="MCH" displayName="MEAN CELL HGB"/&gt ; <statusCode code="completed" /> < effectiveTime value="323463286932" /> <value unit=&quot ;pg" xsi:type="PQ" value="28.0" /> < referenceRange> <observationRange> <text> 27.0-33.0</text> </observationRange> </ referenceRange> </observation> </component> < component> <observation moodCode="EVN" classCode=" OBS"> <templateId root="2.16.840.1.051407.10.20.22.4.2& quot; /> <id nullFlavor="NA" /> <code codeSystem="local" code="MCHC" displayName="MEAN CELL HGB CONCENTRATION" /> <statusCode code="completed&quot ; /> <effectiveTime value="994956968882" /> <value unit="g/dL" xsi:type="PQ" value="32.6&quot ; /> <referenceRange> <observationRange> <text>32.0-37.0</text> </observationRange&gt ; </referenceRange> </observation> </ component> <component> <observation moodCode="EVN& quot; classCode="OBS"> <templateId root=" 2.16.840.1.404207.10.20.22.4.2" /> <id nullFlavor="NA& quot; /> <code codeSystem="local" code="MCV" displayName="MEAN CELL VOLUME" /> <statusCode code=& quot;completed" /> <effectiveTime value="263394088010& quot; /> <value unit="fl" xsi:type="PQ" value ="86.1" /> <referenceRange> < observationRange> <text>80.0-100.0</text> </observationRange> </referenceRange> </ observation> </component> <component> < observation moodCode="EVN" classCode="OBS"> < templateId root="2.16.840.1.867226.10.20.22.4.2" /> < id nullFlavor="NA" /> <code codeSystem="local&quot ; code="MO#" displayName="MONOCYTE #" /> < statusCode code="completed" /> <effectiveTime value=& quot;463499523999" /> <value unit="k/cumm" xsi: type="PQ" value="0.5" /> <referenceRange> <observationRange> <text>0.1-1.0</text& gt; </observationRange> </referenceRange> &lt ;/observation> </component> <component> < observation moodCode="EVN" classCode="OBS"> < templateId root="2.16.840.1.586134.10.20.22.4.2" /> <id nullFlavor="NA" /> <code codeSystem="local" code="MO%" displayName="MONOCYTE %" /> <statusCode code="completed" /> < effectiveTime value="068587405417" /> <value unit=&quot ;%" xsi:type="PQ" value="7" /> < interpretationCode codeSystem="local" code="*" /> <referenceRange> <observationRange> <text >4-6</text> </observationRange> </ referenceRange> </observation> </component> < component> <observation moodCode="EVN" classCode=" OBS"> <templateId root="2.16.840.1.613404.10.20.22.4.2&quot ; /> <id nullFlavor="NA" /> <code codeSystem="local" code="RBC" displayName="RED BLOOD CELL" /> <statusCode code="completed" /> <effectiveTime value="557022718662" /> <value unit="m/cumm" xsi:type="PQ" value="4.03" /> <referenceRange> <observationRange> & lt;text>4.00-6.00</text> </observationRange> & lt;/referenceRange> </observation> </component> <component> <observation moodCode="EVN" classCode=& quot;OBS"> <templateId root=" 2.16.840.1.236706.10.20.22.4.2" /> <id nullFlavor="NA& quot; /> <code codeSystem="local" code="RDW" displayName="RED CELL DISTRIBUTION WIDTH" /> < statusCode code="completed" /> <effectiveTime value=& quot;350849451722" /> <value unit="%" xsi: type="PQ" value="14.7" /> <referenceRange&gt ; <observationRange> <text>11.0-15.6</ text> </observationRange> </referenceRange> </observation> </component> <component> <observation moodCode="EVN" classCode="OBS"> <templateId root="2.16.840.1.674840.10.20.22.4.2" /> <id nullFlavor="NA" /> <code codeSystem=" local" code="WBC" displayName="WHITE BLOOD CELL" /> <statusCode code="completed" /> < effectiveTime value="606097513912" /> <value unit=&quot ;k/cumm" xsi:type="PQ" value="7.5" /> < referenceRange> <observationRange> <text> 5.0-10.0</text> </observationRange> </ referenceRange> </observation> </component> < component> <observation moodCode="EVN" classCode="OBS& quot;> <templateId root="2.16.840.1.048796.10.20.22.4.2&quot ; /> <id nullFlavor="NA" /> <code codeSystem="local" code="HGBT" displayName="HEMOGLOBIN& quot; /> <statusCode code="completed" /> & lt;effectiveTime value="220643436117" /> <value unit=& quot;gm/dL" xsi:type="PQ" value="11.3" /> & lt;interpretationCode codeSystem="local" code="*"/> <referenceRange> <observationRange> &lt ;text>12.0-16.0</text> </observationRange> & lt;/referenceRange> </observation> </component> <component> <observation moodCode="EVN" classCode=& quot;OBS"> <templateId root=" 2.16.840.1.564085.10.20.22.4.2" /> <id nullFlavor="NA& quot; /> <code codeSystem="local" code="HCTT&quot ; displayName="HEMATOCRIT" /> <statusCode code=" completed" /> <effectiveTime value="927795051364" /> <value unit="%" xsi:type="PQ" value=& quot;34.7" /> <interpretationCode codeSystem="local" code= "*" /> <referenceRange> < observationRange> <text>37.0-47.0</text> </ observationRange> </referenceRange> </observation&gt ; </component> <component> <observation moodCode ="EVN" classCode="OBS"> <templateId root=& quot;2.16.840.1.681605.10.20.22.4.2" /><id nullFlavor="NA" /> <code codeSystem="local" code="PLT" displayName="PLATELET COUNT" /> <statusCode code=" completed" /> <effectiveTime value="749097397050" /> <value unit="k/cumm" xsi:type="PQ" value=& quot;177" /> <referenceRange> <observationRange& gt; <text>150-400</text> </ observationRange> </referenceRange> </observation&gt ; </component> </organizer> </entry> <entry> & lt;organizer moodCode="EVN" classCode="BATTERY"> &lt ;templateId root="2.16.840.1.332916.10.20.22.4.1" /> <id nullFlavor="NA" /> <code codeSystem="local" code= "METABC" displayName="METABOLIC PANEL, COMPREHN" /> <statusCode code="completed" /> <component> & lt;observation moodCode="EVN" classCode="OBS"> & lt;templateId root="2.16.840.1.161230.10.20.22.4.2" /> <id nullFlavor="NA" /> <code codeSystem="local" code="K" displayName="POTASSIUM" /> < statusCode code="completed" /> <effectiveTime value=& quot;384141202321" /> <value unit="mmol/L" xsi: type="PQ" value="4.5" /> <referenceRange> <observationRange> <text>3.5-5.3</text> </observationRange> </referenceRange> </ observation> </component> <component> < observation moodCode="EVN" classCode="OBS"> < templateId root="2.16.840.1.715437.10.20.22.4.2" /> < id nullFlavor="NA" /> <code codeSystem="local&quot ; code="eGFR" displayName="EST GFR (MDRD)" /> & lt;statusCode code="completed" /> <effectiveTime value= "159630449908" /> <value unit="mL/min" xsi: type="PQ" value="14" /> <interpretationCode codeSystem="local" code="*" /> < referenceRange> <observationRange> <text>&amp ;gt; 59</text> </observationRange> </ referenceRange> </observation> </component> < component> <observation moodCode="EVN" classCode=" OBS"> <templateId root="2.16.840.1.370454.10.20.22.4.2& quot; /> <id nullFlavor="NA" /> <code codeSystem= "local" code="GAP" displayName="ANION GAP" /> <statusCode code="completed" /> < effectiveTime value="740385678186" /> <value unit=&quot ;mmol/L" xsi:type="PQ" value="12" /> < referenceRange> <observationRange> <text> 5-15</text> </observationRange> </ referenceRange> </observation> </component> < component> <observation moodCode="EVN" classCode=" OBS"> <templateId root="2.16.840.1.355451.10.20.22.4.2& quot; /> <id nullFlavor="NA" /> <code codeSystem="local" code="eCrCl" displayName="EST CrCl ( CG)" /> <statusCode code="completed" /> <effectiveTime value="109824184857" /> <value unit ="mL/min" xsi:type="PQ" value="15" /> < interpretationCode codeSystem="local" code="*" /> <referenceRange> <observationRange> < text>> 59</text> </observationRange> </ referenceRange> </observation> </component> < component> <observation moodCode="EVN" classCode=" OBS"> <templateId root="2.16.840.1.602575.10.20.22.4.2& quot; /> <id nullFlavor="NA" /> <code codeSystem ="local" code="GLU" displayName="GLUCOSE" /> <statusCode code="completed" /> < effectiveTime value="375263254336" /> <value unit=&quot ;mg/dL" xsi:type="PQ" value="179" /> < interpretationCode codeSystem="local" code="*" /> <referenceRange> <observationRange> < text>70-99</text> </observationRange></ referenceRange> </observation> </component> < component> <observation moodCode="EVN" classCode="OBS& quot;> <templateId root="2.16.840.1.583837.10.20.22.4.2&quot ; /> <id nullFlavor="NA" /> <code codeSystem="local" code="CA" displayName="CALCIUM&quot ; /> <statusCode code="completed" /> < effectiveTime value="256346280229" /> <value unit=&quot ;mg/dL" xsi:type="PQ" value="7.2" /> < interpretationCode codeSystem="local" code="*" /> <referenceRange> <observationRange> < text>8.5-10.1</text> </observationRange> < /referenceRange> </observation> </component> &lt ;component> <observation moodCode="EVN" classCode=" OBS"> <templateId root="2.16.840.1.740623.10.20.22.4.2& quot; /> <id nullFlavor="NA" /> <code codeSystem="local" code="BUN" displayName="BLOOD UREA NITROGEN" /> <statusCode code="completed" /> <effectiveTime value="730112560189" /> <value unit="mg/dL" xsi:type="PQ" value="59" /> <interpretationCode codeSystem="local" code="*" /&gt ; <referenceRange> <observationRange> <text>7-20</text> </observationRange> </referenceRange> </observation> </component> <component> <observation moodCode="EVN" classCode=& quot;OBS"> <templateId root=" 2.16.840.1.697828.10.20.22.4.2" /> <id nullFlavor="NA& quot; /> <code codeSystem="local" code="CREAT&quot ;displayName="CREATININE" /> <statusCode code=" completed" /> <effectiveTime value="704015065962" /&gt ; <value unit="mg/dL" xsi:type="PQ" value=" 3.4" /> <interpretationCode codeSystem="local" code="*" /> <referenceRange> < observationRange> <text>0.6-1.0</text> & lt;/observationRange> </referenceRange> </ observation> </component> <component> <observation moodCode="EVN" classCode="OBS"> <templateId root="2.16.840.1.833477.10.20.22.4.2" /> <id nullFlavor ="NA" /> <code codeSystem="local" code="NA& quot; displayName="SODIUM" /> <statusCode code=" completed" /> <effectiveTime value="[id number]" /> <value unit="mmol/L" xsi:type="PQ" value=& quot;132" /> <interpretationCode codeSystem="local&quot ; code="*" /> <referenceRange> < observationRange> <text>135-148</text> & lt;/observationRange> </referenceRange> </ observation> </component> <component> < observation moodCode="EVN" classCode="OBS"> < templateId root="[id number]" /> < id nullFlavor="NA" /> <code codeSystem="local&quot ; code="CL" displayName="CHLORIDE" /> < statusCode code="completed" /> <effectiveTime value=& quot;[id number]" /> <value unit="mmol/L" xsi: type="PQ" value="104" /> <referenceRange> <observationRange> <text>98-110</text&gt ; </observationRange> </referenceRange> & lt;/observation> </component> <component> < observation moodCode="EVN" classCode="OBS"> < templateId root="2.16.840.1.133916.10.20.22.4.2" /> < id nullFlavor="NA" /> <code codeSystem="local&quot ; code="AST" displayName="AST/SGOT" /> < statusCode code="completed" /> <effectiveTime value=" 580383910725" /> <value unit="Units/L" xsi:type=& quot;PQ" value="8" /> <interpretationCode codeSystem="local" code="*" /> < referenceRange> <observationRange> <text> 10-37</text> </observationRange> </ referenceRange> </observation> </component> < component> <observation moodCode="EVN" classCode=" OBS"> <templateId root="2.16.840.1.296940...22.4.2& quot; /> <id nullFlavor="NA" /> <code codeSystem="local" code="ALT" displayName="ALT/SGPT& quot; /> <statusCode code="completed" /> &lt ;effectiveTime value="377874433940" /> <value unit=& quot;Units/L" xsi:type="PQ" value="10" /> & lt;referenceRange> <observationRange> <text& gt;< 66</text> </observationRange> </ referenceRange> </observation> </component> < component> <observation moodCode="EVN" classCode=" OBS"> <templateId root="2.16.840.1.863089.10..22.4.2& quot; /> <id nullFlavor="NA" /> <code codeSystem="local" code="CO2" displayName="CARBON DIOXIDE" /> <statusCode code="completed" /> <effectiveTime value="471595947556" /> < value unit="mmol/L" xsi:type="PQ" value="16" /&gt ; <interpretationCode codeSystem="local" code="*&quot ; /> <referenceRange> <observationRange> <text>21-32</text> </observationRange> </referenceRange> </observation> </component> <component> <observation moodCode="EVN" classCode="OBS"> <templateId root=" 2.16.840.1.785212.10.20.22.4.2" /> <id nullFlavor="NA" / > <code codeSystem="local" code="TP" displayName="TOTAL PROTEIN" /> <statusCode code=" completed" /> <effectiveTime value="075740334944" /> <value unit="gm/dL" xsi:type="PQ" value=& quot;5.8" /> <interpretationCode codeSystem="local&quot ; code="*" /> <referenceRange> < observationRange> <text>6.4-8.2</text> & lt;/observationRange> </referenceRange> </observation > </component> <component> <observation moodCode="EVN" classCode="OBS"> <templateId root="2.16.840.1.976969.10.20.22.4.2" /> <id nullFlavor ="NA" /> <code codeSystem="local" code=" ALB" displayName="ALBUMIN" /> <statusCode code=& quot;completed" /> <effectiveTime value="002282001609& quot; /> <value unit="gm/dL" xsi:type="PQ" value="3.3" /> <interpretationCode codeSystem=" local" code="*" /> <referenceRange> <observationRange> <text>3.4-5.0</text> </observationRange> </referenceRange> </observation& gt; </component> <component> <observation moodCode="EVN" classCode="OBS"> <templateId root="2.16.840.1.947414.10.20.22.4.2" /> <id nullFlavor ="NA" /> <code codeSystem="local" code=" BILTOT" displayName="BILI TOTAL" /> <statusCode code="completed" /> <effectiveTime value=" 244462855312" /> <value unit="mg/dL" xsi:type=& quot;PQ" value="1.1" /> <interpretationCode codeSystem=& quot;local" code="*" /> <referenceRange> <observationRange> <text>0.0-1.0</text> & lt;/observationRange> </referenceRange> </ observation> </component> <component> < observation moodCode="EVN" classCode="OBS"> < templateId root="2.16.840.1.574812.10.20.22.4.2" /> < id nullFlavor="NA" /> <code codeSystem="local&quot ; code="ALKP" displayName="ALKALINE PHOSPHATASE TOTAL" /&gt ; <statusCode code="completed" /> < effectiveTime value="961438850418" /> <value unit=&quot ;IU/L" xsi:type="PQ" value="46" /> < referenceRange> <observationRange> <text> 45-117</text> </observationRange> </ referenceRange> </observation> </component> </ organizer> </entry> <entry> <organizer moodCode="EVN "classCode="BATTERY"> <templateId root=" 2.16.840.1.697106.10.20.22.4.1" /> <id nullFlavor="NA&quot ; /> <code codeSystem="local" code="HDLPRO" displayName="LIPID PANEL" /> <statusCode code=" completed" /> <component> <observation moodCode=& quot;EVN" classCode="OBS"> <templateId root=" 2.16.840.1.356245.10.20.22.4.2" /> <id nullFlavor="NA& quot; /> <code codeSystem="local" code="CHOL/HDL& quot; displayName="CHOLESTEROL/HDL RATIO" /> < statusCode code="completed" /> <effectiveTime value=& quot;561110178208" /> <value unit="" xsi:type=& quot;PQ" value="3.7" /> <referenceRange> <observationRange> <text> < 5.0</text&gt ; </observationRange> </referenceRange> & lt;/observation> </component> <component> < observation moodCode="EVN" classCode="OBS"> < templateId root="2.16.840.1.762770.10.20.22.4.2" /> < idnullFlavor="NA" /> <code codeSystem="local&quot ; code="LDLX"displayName="LDL CHOLESTEROL" /> & lt;statusCode code="completed" /> <effectiveTime value= "990096020226" /> <value unit="mg/dL" xsi: type="PQ" value="17" /> <referenceRange>& lt;observationRange> <text>< 100</text> </observationRange> </referenceRange> </ observation> </component> <component> < observation moodCode="EVN" classCode="OBS"> < templateId root="2.16.840.1.416084.10.20.22.4.2" /> < id nullFlavor="NA" /> <code codeSystem="local&quot ; code="VLDL" displayName="VLDL CHOLESTEROL" /> <statusCode code="completed" /> <effectiveTime value=" 303068514387" /> <value unit="mg/dL" xsi:type=& quot;PQ" value="54" /> <interpretationCode codeSystem="local" code="*" /> < referenceRange> <observationRange> <text>& amp;lt; 30</text> </observationRange> </ referenceRange> </observation> </component> < component><observation moodCode="EVN" classCode="OBS"& gt; <templateId root="2.16.840.1.448410.10.20.22.4.2" /&gt ; <id nullFlavor="NA" /> <code codeSystem=" local" code="TRIG" displayName="TRIGLYCERIDES" /> <statusCode code="completed" /> < effectiveTime value="416462330483" /> <value unit=&quot ;mg/dL" xsi:type="PQ" value="269" /> < interpretationCode codeSystem="local" code="*" /> <referenceRange> <observationRange> < text>< 150</text> </observationRange> </referenceRange> </observation> </component> <component> <observation moodCode="EVN" classCode=& quot;OBS"> <templateId root=" 2.16.840.1.272629.10.20.22.4.2" /> <id nullFlavor="NA& quot; /> <code codeSystem="local" code="CHOL&quot ; displayName="CHOLESTEROL" /> <statusCode code=" completed" /> <effectiveTime value="359527579398" /> <value unit="mg/dL" xsi:type="PQ" value=&quot ;97" /> <referenceRange> <observationRange& gt; <text>< 200</text> </ observationRange> </referenceRange> </observation&gt ; </component> <component> <observation moodCode ="EVN" classCode="OBS"> <templateId root=& quot;2.16.840.1.123483.10.20.22.4.2"/> <id nullFlavor=" NA" /> <code codeSystem="local"code="HDL&quot ; displayName="HDL CHOLESTEROL" /> <statusCode code=& quot;completed" /> <effectiveTime value="338106132779& quot; /> <value unit="mg/dL" xsi:type="PQ" value="26" /> <interpretationCode codeSystem=" local" code="*" /> <referenceRange> < observationRange> <text>> 39</text> </observationRange> </referenceRange> </ observation> </component> </organizer> </entry> & lt;entry> <organizer moodCode="EVN" classCode="BATTERY& quot;> <templateId root="2.16.840.1.157815.10.20.22.4.1" /& gt; <id nullFlavor="NA" /> <code codeSystem=" local" code="PHOS" displayName="PHOSPHORUS" /> <statusCode code="completed" /> <component> & lt;observation moodCode="EVN" classCode="OBS"> & lt;templateId root="2.16.840.1.312217.10.20.22.4.2" /> &lt ;id nullFlavor="NA" /> <code codeSystem="local& quot; code="PHOS" displayName="PHOSPHORUS" /> & lt;statusCode code="completed" /> <effectiveTime value=" 580311616360" /> <value unit="mg/dL" xsi:type=& quot;PQ" value="5.0" /> <interpretationCode codeSystem="local" code="*" /> < referenceRange> <observationRange> <text> 2.5-4.9</text> </observationRange> </ referenceRange> </observation> </component> </ organizer> </entry> <entry> <organizer moodCode="EVN " classCode="BATTERY"> <templateId root=" 2.16.840.1.222602.10.20.22.4.1" /> <id nullFlavor="NA&quot ; /> <code codeSystem="local" code="MAG" displayName="MAGNESIUM" /> <statusCode code="completed " /> <component> <observation moodCode="EVN& quot; classCode="OBS"> <templateId root=" 2.16.840.1.666068.10..22.4.2" /> <id nullFlavor="NA& quot; /> <code codeSystem="local" code="MAG" displayName="MAGNESIUM" /> <statusCode code=" completed" /> <effectiveTime value="918326387747" /> <value unit="mg/dL" xsi:type="PQ" value=& quot;2.0" /> <referenceRange> < observationRange> <text>1.8-2.4</text> & lt;/observationRange> </referenceRange> </observation> </component> </organizer> </entry> <entry> & lt;organizer moodCode="EVN" classCode="BATTERY"> &lt ;templateId root="2.16.840.1.253248.10.20.22.4.1" /> <id nullFlavor="NA" /> <code codeSystem="local" code= "GLUMON" displayName="GLUCOSE (POC)" /> < statusCode code="completed" /> <component> < observation moodCode="EVN" classCode="OBS"> < templateId root="2.16.840.1.608912.10.20.22.4.2" /> < id nullFlavor="NA" /> <code codeSystem="local&quot ; code="GLUMON" displayName="GLUCOSE (POC)" /> < statusCode code="completed" /> <effectiveTime value=& quot;787813854295" /> <value unit="mg/dL" xsi:type ="PQ" value="178" /> <interpretationCode codeSystem="local" code="*" /> < referenceRange> <observationRange> <text> 70-99</text> </observationRange> </ referenceRange> </observation> </component> </ organizer> </entry> <entry> <organizer moodCode="EVN " classCode="BATTERY"> <templateId root=" 2.16.840.1.647203.10.20.22.4.1" /> <id nullFlavor="NA&quot ; /> <code codeSystem="local" code="TESSIE" displayName="UR SODIUM" /> <statusCode code="completed " /> <component> <observation moodCode="EVN& quot; classCode="OBS"> <templateId root=" 2.16.840.1.338104.10..22.4.2" /> <id nullFlavor="NA& quot; /> <code codeSystem="local" code="NAUCOM& quot; displayName="UR SODIUM COMMENT" /> <statusCode code="completed" /> <effectiveTime value=" 509374070717" /> <value unit="" xsi:type="PQ& quot; value="RANDOM" /> <referenceRange> <observationRange> <text /> </ observationRange> </referenceRange> </observation&gt ; </component> <component> <observation moodCode ="EVN" classCode="OBS"><templateId root=" 2.16.840.1.113909.10.20.22.4.2" /> <id nullFlavor="NA& quot; /> <code codeSystem="local" code="NAULEV& quot; displayName="UR SODIUM LEVEL" /> <statusCode code ="completed" /> <effectiveTime value="678304785846 " /> <value unit="mmol/L" xsi:type="PQ" value="57" /> <interpretationCode codeSystem=" local" code="*" /> <referenceRange> <observationRange> <text>20-40</text> < /observationRange> </referenceRange> </observation& gt; </component> </organizer> </entry><entry> <organizer moodCode="EVN" classCode="BATTERY"> <templateId root="2.16.840.1.774006.10.20.22.4.1" /> < id nullFlavor="NA"/> <code codeSystem="local" code="CREATU" displayName="UR CREATININE" /> < statusCode code="completed" /> <component> < observation moodCode="EVN" classCode="OBS"> < templateId root="2.16.840.1.815384.10.20.22.4.2" /> < id nullFlavor="NA" /> <code codeSystem="local" code=& quot;CREATUCOM" displayName="UR CREATININE COMMENT" /> <statusCode code="completed" /> <effectiveTime value="080877308079" /> <value unit="" xsi: type="PQ" value="RANDOM" /> <referenceRange& gt; <observationRange> <text /> </ observationRange> </referenceRange></observation> & lt;/component> <component> <observation moodCode=" EVN" classCode="OBS"> <templateId root=" 2.16.840.1.830645.10.20.22.4.2" /> <id nullFlavor="NA& quot; /> <code codeSystem="local" code="CREATULEV& quot; displayName="UR CREATININE LEVEL" /> <statusCode code=& quot;completed" /> <effectiveTime value="615028630304& quot; /> <value unit="mg/dL" xsi:type="PQ" value="63.5"/> <referenceRange> < observationRange> <text>44-467</text> &lt ;/observationRange> </referenceRange> </observation& gt; </component> </organizer> </entry> <entry&gt ; <organizer moodCode="EVN" classCode="BATTERY"> <templateId root="2.16.840.1.227841.10.20.22.4.1" /> & lt;id nullFlavor="NA" /> <code codeSystem="local&quot ; code="LACT" displayName="LACTIC ACID" /> < statusCode code="completed" /> <component> < observation moodCode="EVN" classCode="OBS"> < templateId root="2.16.840.1.411319.10.20.22.4.2" /> < id nullFlavor="NA" /> <code codeSystem="local&quot ; code="LACT" displayName="LACTIC ACID" /> < statusCodecode="completed" /> <effectiveTime value=& quot;655283563974" /> <value unit="mmol/L" xsi:type=& quot;PQ" value="1.4" /> <referenceRange> <observationRange> <text>0.5-2.2</text> </observationRange> </referenceRange> </ observation> </component> </organizer> </entry> & lt;entry> <organizer moodCode="EVN" classCode="BATTERY& quot;> <templateId root="2.16.840.1.183645.10.20.22.4.1" /& gt; <id nullFlavor="NA" /> <code codeSystem=" local" code="TROPI" displayName="TROPONIN I" /> <statusCode code="completed" /> <component> <observation moodCode="EVN" classCode="OBS"> <templateId root="2.16.840.1.230994.10.20.22.4.2" /> & lt;id nullFlavor="NA" /> <code codeSystem="local& quot; code="TROPI" displayName="TROPONIN I" /> & lt;statusCode code="completed" /> <effectiveTime value= "532734810205" /> <valueunit="ng/mL" xsi:type ="PQ" value="< 0.02" /> < referenceRange> <observationRange> <text> < 0.07</text> </observationRange> </ referenceRange> </observation> </component> </ organizer> </entry> <entry> <organizer moodCode="EVN " classCode="BATTERY"> <templateId root=" 2.16.840.1.982078.10.20.22.4.1" /> <id nullFlavor="NA&quot ; /> <code codeSystem="local" code="CK" displayName="CREATINE KINASE (CK/CPK)" /> <statusCode code= "completed" /> <component> <observation moodCode="EVN" classCode="OBS"> <templateId root="2.16.840.1.501825.10.20.22.4.2" /> <id nullFlavor ="NA" /> <code codeSystem="local" code=" CK" displayName="CREATINE KINASE (CK/CPK)" /> < statusCode code="completed" /> <effectiveTime value=& quot;251794465023" /> <value unit="Units/L" xsi: type="PQ" value="63" /> <referenceRange> <observationRange> <text>< 193</text& gt; </observationRange> </referenceRange> </observation> </component> </organizer> </entry > <entry> <organizer moodCode="EVN" classCode=" BATTERY"> <templateId root="2.16.840.1.877722.10.20.22.4.1& quot; /> <id nullFlavor="NA" /> <code codeSystem ="local" code="GLUMON" displayName="GLUCOSE (POC)&quot ; /> <statusCode code="completed" /> <component& gt; <observation moodCode="EVN" classCode="OBS"&gt ; <templateId root="2.16.840.1.495656.10.20.22.4.2" /> <id nullFlavor="NA" /> <code codeSystem=& quot;local" code="GLUMON" displayName="GLUCOSE (POC)" / > <statusCode code="completed" /> < effectiveTime value="087432757732" /> <value unit=&quot ;mg/dL" xsi:type="PQ" value="293" /> < interpretationCode codeSystem="local" code="*" /> <referenceRange> <observationRange> < text>70-99</text> </observationRange> </ referenceRange> </observation> </component> </ organizer> </entry> <entry> <organizer moodCode="EVN " classCode="BATTERY"> <templateId root=" 2.16.840.1.436819.10.20.22.4.1" /> <id nullFlavor="NA&quot ; /> <code codeSystem="local" code="GLUMON" displayName="GLUCOSE (POC)" /> <statusCode code=" completed" /> <component> <observation moodCode=& quot;EVN" classCode="OBS"> <templateId root=" 2.16.840.1.535647.10.20.22.4.2" /> <id nullFlavor="NA" / > <code codeSystem="local" code="GLUMON" displayName="GLUCOSE (POC)" /> <statusCode code=" completed" /> <effectiveTime value="056906660695" /> <value unit="mg/dL" xsi:type="PQ" value=& quot;358" /> <interpretationCode codeSystem="local&quot ; code="*" /> <referenceRange> < observationRange> <text>70-99</text> < /observationRange> </referenceRange> </observation& gt; </component> </organizer> </entry> <entry&gt ; <organizer moodCode="EVN" classCode="BATTERY"> <templateId root="2.16.840.1.879544.10.20.22.4.1" /> & lt;id nullFlavor="NA" /> <code codeSystem="local&quot ; code="GLUMON" displayName="GLUCOSE (POC)" /> < statusCode code="completed" /> <component> < observation moodCode="EVN" classCode="OBS"> < templateId root="2.16.840.1.916948.10.20.22.4.2" /> < id nullFlavor="NA" /> <code codeSystem="local&quot ; code="GLUMON" displayName="GLUCOSE (POC)" /> & lt;statusCode code="completed" /> <effectiveTime value= "509845504023" /> <value unit="mg/dL" xsi: type="PQ" value="65" /> <interpretationCode codeSystem="local" code="*" /> < referenceRange> <observationRange> <text>70-99 </text> </observationRange> </referenceRange& gt; </observation> </component> </organizer> & lt;/entry> <entry> <organizer moodCode="EVN" classCode ="BATTERY"> <templateId root=" 2.16.840.1.879160.10.20.22.4.1" /> <id nullFlavor="NA&quot ; /> <code codeSystem="local" code="GLUMON" displayName="GLUCOSE (POC)" /> <statusCode code=" completed" /> <component> <observation moodCode=& quot;EVN" classCode="OBS"> <templateId root=" 2.16.840.1.832594.10.20.22.4.2" /> <id nullFlavor="NA& quot; /> <code codeSystem="local" code="GLUMON" displayName="GLUCOSE (POC)"/> <statusCode code=" completed" /> <effectiveTime value="848257229447" /> <value unit="mg/dL" xsi:type="PQ" value=& quot;99" /> <referenceRange> < observationRange> <text>70-99</text> < /observationRange> </referenceRange> </observation> </component> </organizer> </entry> <entry> <organizer moodCode="EVN" classCode="BATTERY"> <templateId root="2.16.840.1.594099.10.20.22.4.1" /> < id nullFlavor="NA" /> <code codeSystem="local" code="GLUMON" displayName="GLUCOSE (POC)" /> < statusCode code="completed" /> <component> < observation moodCode="EVN" classCode="OBS"> < templateId root="2.16.840.1.238310.10.20.22.4.2" /> < id nullFlavor="NA" /> <code codeSystem="local&quot ; code="GLUMON" displayName="GLUCOSE (POC)" /> < statusCode code="completed" /> <effectiveTime value=& quot;173331018757" /> <value unit="mg/dL" xsi:type ="PQ" value="189" /> <interpretationCode codeSystem="local" code="*" /> <referenceRange> <observationRange> <text>70-99</text> </observationRange> </referenceRange> &lt ;/observation> </component> </organizer> </entry> <entry> <organizer moodCode="EVN" classCode=" BATTERY"> <templateId root="2.16.840.1.725987.10.20.22.4.1& quot; /> <id nullFlavor="NA" /> <code codeSystem ="local" code="CBCD" displayName="CBC W/DIFF" /&gt ; <statusCode code="completed" /> <component> <observation moodCode="EVN" classCode="OBS"> <templateId root="2.16.840.1.357532.10.20.22.4.2" /> <id nullFlavor="NA" /> <code codeSystem=" local" code="EO#" displayName="EOSINOPHIL #" /> <statusCode code="completed" /> < effectiveTime value="732603337938" /> <valueunit=" k/cumm" xsi:type="PQ" value="0.1" /> < referenceRange> <observationRange> <text> 0.1-0.5</text> </observationRange> </ referenceRange> </observation> </component> < component> <observation moodCode="EVN" classCode=" OBS"> <templateId root="2.16.840.1.253987.10.20.22.4.2& quot; /> <id nullFlavor="NA" /> <code codeSystem="local" code="EO%" displayName=" EOSINOPHIL %" /> <statusCode code="completed& quot; /> <effectiveTime value="449883477720" /> <value unit="%" xsi:type="PQ" value="2 " /> <referenceRange> <observationRange&gt ; <text>2-4</text> </observationRange&gt ; </referenceRange> </observation> </ component> <component> <observation moodCode="EVN& quot; classCode="OBS"> <templateId root=" 2.16.840.1.630756.10..22.4.2" /> <id nullFlavor="NA& quot; /> <code codeSystem="local" code="GR#" displayName="GRANULOCYTE #" /> <statusCode code=" completed" /> <effectiveTime value="220605359018" /&gt ; <value unit="k/cumm" xsi:type="PQ" value=&quot ;4.7" /> <referenceRange> <observationRange > <text>2.0-9.0</text> </ observationRange> </referenceRange> </observation&gt ; </component> <component> <observation moodCode ="EVN" classCode="OBS"> <templateId root=& quot;2.16.840.1.013346.10..22.4.2" /> <id nullFlavor=&quot ;NA" /> <code codeSystem="local" code="GR&amp ;#37;" displayName="GRANULOCYTE %" /> < statusCode code="completed" /> <effectiveTime value=" 105928747676" /> <value unit="%" xsi:type= "PQ" value="57" /> <referenceRange> <observationRange> <text>50-75</text> </observationRange> </referenceRange> </ observation> </component> <component> < observation moodCode="EVN" classCode="OBS"> < templateId root="2.16.840.1.386340.10.20.22.4.2" /> < id nullFlavor="NA" /> <code codeSystem="local&quot ; code="LY#" displayName="LYMPHOCYTE #" /> < statusCode code="completed" /> <effectiveTime value=& quot;453317470107" /> <value unit="k/cumm" xsi: type="PQ" value="2.6" /> <referenceRange> <observationRange> <text>1.0-4.0</text& gt; </observationRange> </referenceRange> </observation> </component> <component> &lt ;observation moodCode="EVN" classCode="OBS"> &lt ;templateId root="2.16.840.1.860132.10.20.22.4.2" /> < id nullFlavor="NA" /> <code codeSystem="local" code=& quot;LY%" displayName="LYMPHOCYTE %" /> <statusCode code="completed" /> <effectiveTime value="050976179643" /> <value unit="%& quot; xsi:type="PQ" value="32" /> < interpretationCode codeSystem="local" code="*" /> <referenceRange> <observationRange><text>20-30& lt;/text> </observationRange> </referenceRange& gt; </observation> </component> <component> <observation moodCode="EVN" classCode="OBS"> <templateId root="2.16.840.1.626591.10.20.22.4.2" /> <id nullFlavor="NA" /> <code codeSystem=" local" code="MCH" displayName="MEAN CELL HGB" /> <statusCode code="completed" /> < effectiveTime value="651221706575" /> <value unit=&quot ;pg" xsi:type="PQ" value="28.8" /> < referenceRange> <observationRange> <text> 27.0-33.0</text> </observationRange> </ referenceRange> </observation> </component> < component> <observation moodCode="EVN" classCode=" OBS"> <templateId root="216.840.1.123750.10.20.22.4.2& quot; /> <id nullFlavor="NA" /> <code codeSystem="local" code="MCHC" displayName="MEAN CELL HGB CONCENTRATION" /> <statusCode code="completed&quot ; /> <effectiveTime value="616549442085" /> <value unit="g/dL" xsi:type="PQ" value="32.2&quot ; /> <referenceRange> <observationRange> <text>32.0-37.0</text> </observationRange> </referenceRange> </observation> </component& gt; <component> <observation moodCode="EVN" classCode="OBS"> <templateId root=" 2..840.1.485842.10.20.22.4.2" /> <id nullFlavor="NA& quot; /> <code codeSystem="local" code="MCV" displayName="MEAN CELL VOLUME" /> <statusCode code=& quot;completed" /> <effectiveTime value="230396890001& quot; /><value unit="fl" xsi:type="PQ" value=" 89.5" /> <referenceRange> <observationRange > <text>80.0-100.0</text> </ observationRange> </referenceRange> </observation&gt ;</component> <component> <observation moodCode=&quot ;EVN" classCode="OBS"> <templateId root=" 2.16.840.1.165618.10.20.22.4.2" /> <id nullFlavor="NA" /> <code codeSystem="local" code="MO#" displayName="MONOCYTE #" /> <statusCode code=" completed" /> <effectiveTime value="453102481164" /> <value unit="k/cumm" xsi:type="PQ" value=& quot;0.7" /> <referenceRange> <observationRange > <text>0.1-1.0</text> </ observationRange> </referenceRange> </observation&gt ; </component> <component> <observation moodCode=& quot;EVN" classCode="OBS"> <templateId root=" 2.16.840.1.060499.10.20.22.4.2" /> <id nullFlavor="NA& quot; /> <code codeSystem="local" code="MO&#37 ;" displayName="MONOCYTE %" /> < statusCode code="completed" /> <effectiveTime value=& quot;251072796728" /> <value unit="%" xsi: type="PQ" value="9" /> <interpretationCode codeSystem="local" code="*" /> < referenceRange> <observationRange> <text> 4-6</text> </observationRange> </referenceRange> </observation> </component> <component> <observation moodCode="EVN" classCode="OBS"> <templateId root="2.16.840.1.007329.10.20.22.4.2" /> <id nullFlavor="NA" /> <code codeSystem=" local" code="RBC" displayName="RED BLOOD CELL" /> <statusCode code="completed" /> < effectiveTime value="[id number]" /> <value unit=&quot ;m/cumm" xsi:type="PQ"value="3.71" /> < interpretationCode codeSystem="local" code="*" /> <referenceRange> <observationRange> < text>4.00-6.00</text> </observationRange> &lt ;/referenceRange> </observation> </component> < component> <observation moodCode="EVN" classCode=" OBS"> <templateId root="[id number]& quot; /> <id nullFlavor="NA" /> <code codeSystem="local" code="RDW" displayName="RED CELL DISTRIBUTION WIDTH" /> <statusCode code="completed" /> <effectiveTime value="[id number]" /> & lt;value unit="%" xsi:type="PQ" value="14.9& quot; /> <referenceRange> <observationRange> <text>11.0-15.6</text> </ observationRange> </referenceRange> </observation&gt ; </component> <component> <observation moodCode ="EVN" classCode="OBS"> <templateId root=& quot;2.16.840.1.894810.10.20.22.4.2" /> <id nullFlavor=&quot ;NA" /> <code codeSystem="local" code="WBC& quot; displayName="WHITE BLOOD CELL" /><statusCode code=" completed" /> <effectiveTime value="946005074069" /> <value unit="k/cumm" xsi:type="PQ" value=& quot;8.3" /> <referenceRange> < observationRange> <text>5.0-10.0</text> & lt;/observationRange> </referenceRange> </ observation> </component> <component> < observation moodCode="EVN" classCode="OBS"> < templateId root="2.16.840.1.948764.10.20.22.4.2" /> < id nullFlavor="NA" /> <code codeSystem="local&quot ; code="HGBT" displayName="HEMOGLOBIN" /> < statusCode code="completed" /> <effectiveTime value=& quot;399824578715" /> <value unit="gm/dL" xsi:type=" PQ" value="10.7" /> <interpretationCode codeSystem ="local" code="*" /> <referenceRange> <observationRange> <text>12.0-16.0</text&gt ; </observationRange> </referenceRange> & lt;/observation> </component> <component> < observation moodCode="EVN" classCode="OBS"> < templateId root="2.16.840.1.511293.10.20.22.4.2" /> < id nullFlavor="NA" /> <code codeSystem="local&quot ; code="HCTT" displayName="HEMATOCRIT" /> < statusCode code="completed" /> <effectiveTime value=" 386862754666" /> <value unit="%" xsi:type= "PQ" value="33.2" /> <interpretationCode codeSystem="local" code="*" /> < referenceRange> <observationRange> <text> 37.0-47.0</text> </observationRange> </ referenceRange> </observation> </component> < component> <observation moodCode="EVN" classCode=" OBS"> <templateId root="2.16.840.1.657028.10.20.22.4.2& quot; /> <id nullFlavor="NA" /> <code codeSystem="local" code="PLT" displayName="PLATELET COUNT" /> <statusCode code="completed" /> <effectiveTimevalue="350130552439" /> <value unit="k/cumm" xsi:type="PQ" value="145" /> <interpretationCode codeSystem="local" code="*" /& gt; <referenceRange> <observationRange> <text>150-400</text> </observationRange> </referenceRange> </observation> </component> </organizer> </entry> <entry> <organizer moodCode=& quot;EVN" classCode="BATTERY"> <templateId root=" 2.16.840.1.274690.10.20.22.4.1" /> <id nullFlavor="NA&quot ; /> <code codeSystem="local" code="RENAL" displayName="RENAL FUNCTION PANEL" /> <statusCode code=& quot;completed" /> <component> <observation moodCode="EVN" classCode="OBS"> <templateId root="2.16.840.1.365677.10.20.22.4.2" /> <id nullFlavor ="NA" /> <code codeSystem="local" code=" K" displayName="POTASSIUM" /> <statusCode code=" completed" /> <effectiveTime value="492261255670" /> <value unit="mmol/L" xsi:type="PQ" value=& quot;4.5"/> <referenceRange> < observationRange> <text>3.5-5.3</text> & lt;/observationRange> </referenceRange> </ observation> </component> <component> < observation moodCode="EVN" classCode="OBS"> < templateId root="2.16.840.1.307094.10.20.22.4.2" /> < id nullFlavor="NA" /> <code codeSystem="local&quot ; code="eGFR" displayName="EST GFR (MDRD)" /> & lt;statusCode code="completed" /> <effectiveTime value= "335248260883" /> <value unit="mL/min" xsi:type=& quot;PQ" value="37" /> <interpretationCode codeSystem="local" code="*" /> < referenceRange> <observationRange> <text> > 59</text> </observationRange> </ referenceRange> </observation> </component> < component> <observation moodCode="EVN" classCode=" OBS"> <templateId root="2.16.840.1.203990.10.20.22.4.2& quot; /> <id nullFlavor="NA" /> <code codeSystem="local" code="GAP" displayName="ANION GAP& quot; /> <statusCode code="completed" /> & lt;effectiveTime value="903892832346" /> <value unit=& quot;mmol/L" xsi:type="PQ" value="7" /> &lt ;referenceRange> <observationRange> <text&gt ;5-15</text> </observationRange> </ referenceRange> </observation> </component> < component> <observation moodCode="EVN" classCode=" OBS"> <templateId root="2.16.840.1.802259.10.20.22.4.2& quot; /> <id nullFlavor="NA" /> <code codeSystem="local" code="eCrCl" displayName="EST CrCl ( CG)" /> <statusCode code="completed" /> <effectiveTime value="415346440836" /> <value unit="mL/min" xsi:type="PQ" value="35" /> <interpretationCode codeSystem="local" code="*" /&gt ; <referenceRange> <observationRange> <text >> 59</text> </observationRange> </ referenceRange> </observation> </component> < component> <observation moodCode="EVN" classCode=" OBS"> <templateId root="2.16.840.1.485337.10.20.22.4.2& quot; /> <id nullFlavor="NA" /> <code codeSystem="local" code="GLU" displayName="GLUCOSE&quot ; /> <statusCode code="completed" /> < effectiveTime value="032338043456" /> <value unit=&quot ;mg/dL" xsi:type="PQ" value="237" /> < interpretationCode codeSystem="local" code="*" /> <referenceRange> <observationRange> < text>70-99</text> </observationRange> </ referenceRange> </observation> </component> < component> <observation moodCode="EVN" classCode=" OBS"> <templateId root="2.16.840.1.699374.10.20.22.4.2& quot; /> <id nullFlavor="NA" /> <code codeSystem="local" code="CA" displayName="CALCIUM&quot ; /> <statusCode code="completed" /> < effectiveTime value="125107822717" /> <value unit=&quot ;mg/dL" xsi:type="PQ" value="7.7" /> < interpretationCode codeSystem="local" code="*" /> <referenceRange> <observationRange> < text>8.5-10.1</text> </observationRange> </ referenceRange> </observation> </component> < component> <observation moodCode="EVN" classCode=" OBS"> <templateId root="2.16.840.1.620483.10.20.22.4.2& quot; /> <id nullFlavor="NA"/> <code codeSystem="local" code="BUN" displayName="BLOOD UREA NITROGEN" /> <statusCode code="completed" /> <effectiveTime value="680128611645" /> < value unit="mg/dL" xsi:type="PQ" value="31" /> <interpretationCode codeSystem="local" code="*&quot ; /> <referenceRange> <observationRange>< text>7-20</text> </observationRange> </ referenceRange> </observation> </component> < component> <observation moodCode="EVN" classCode=" OBS"> <templateId root="2.16.840.1.962994.10.20.22.4.2& quot; /> <id nullFlavor="NA" /> <code codeSystem="local" code="CREAT" displayName="CREATININE " /> <statusCode code="completed" /> & lt;effectiveTime value="829213794034" /> <value unit=& quot;mg/dL" xsi:type="PQ" value="1.5" /> < interpretationCode codeSystem="local" code="*" /> <referenceRange> <observationRange> < text>0.6-1.0</text> </observationRange> </ referenceRange> </observation> </component> < component> <observation moodCode="EVN" classCode=" OBS"> <templateId root="2.16.840.1.429504.10.20.22.4.2& quot; /> <id nullFlavor="NA" /> <code codeSystem="local" code="NA" displayName="SODIUM" /> <statusCode code="completed" /> < effectiveTime value="201798003707" /> <value unit=&quot ;mmol/L" xsi:type="PQ" value="137" /> < referenceRange> <observationRange> <text>135-148< /text> </observationRange> </referenceRange> </observation> </component> <component> <observation moodCode="EVN" classCode="OBS"> < templateId root="2.16.840.1.419456.10.20.22.4.2" /> < id nullFlavor="NA" /> <code codeSystem="local&quot ; code="CL" displayName="CHLORIDE" /> < statusCode code="completed" /> <effectiveTime value=& quot;153441253859" /> <value unit="mmol/L" xsi: type="PQ" value="109" /> <referenceRange> <observationRange> <text>98-110</text&gt ; </observationRange> </referenceRange> & lt;/observation> </component> <component> < observation moodCode="EVN" classCode="OBS"> < templateId root="2.16.840.1.940708.10..22.4.2" /> < id nullFlavor="NA" /> <code codeSystem="local" code=& quot;CO2" displayName="CARBON DIOXIDE" /> < statusCode code="completed" /> <effectiveTime value=& quot;475616198088" /> <value unit="mmol/L" xsi: type="PQ" value="21" /> <referenceRange> <observationRange> <text>21-32</text> </observationRange> </referenceRange> </ observation> </component> <component> < observation moodCode="EVN" classCode="OBS"> < templateId root="2.16.840.1.620174.10..22.4.2" /> < id nullFlavor="NA" /> <code codeSystem="local&quot ; code="ALB" displayName="ALBUMIN" /> < statusCode code="completed" /> <effectiveTime value=& quot;718117097119" /> <value unit="gm/dL" xsi:type=& quot;PQ" value="3.0" /> <interpretationCode codeSystem=& quot;local" code="*" /> <referenceRange> <observationRange> <text>3.4-5.0</text> &lt ;/observationRange> </referenceRange> </observation& gt; </component> <component> <observation moodCode="EVN" classCode="OBS"> <templateId root="2.16.840.1.298643.10.20.22.4.2" /> <id nullFlavor ="NA" /> <code codeSystem="local" code=" PHOS" displayName="PHOSPHORUS" /> <statusCode code ="completed" /> <effectiveTime value="343584278582 " /> <value unit="mg/dL" xsi:type="PQ" value="2.1" /> <interpretationCode codeSystem=" local" code="*" /> <referenceRange> <observationRange> <text>2.5-4.9</text> </observationRange> </referenceRange> </observation&gt ; </component> </organizer> </entry> <entry> <organizer moodCode="EVN" classCode="BATTERY"> <templateId root="2.16.840.1.463144.10.20.22.4.1" /> < id nullFlavor="NA" /> <code codeSystem="local" code="MAG" displayName="MAGNESIUM" /> < statusCode code="completed" /> <component> < observation moodCode="EVN" classCode="OBS"> < templateIdroot="2.16.840.1.442137.10.20.22.4.2" /> <id nullFlavor="NA" /> <code codeSystem="local" code="MAG" displayName="MAGNESIUM" /> < statusCode code="completed" /> <effectiveTime value=& quot;638489882346" /> <value unit="mg/dL" xsi:type ="PQ" value="1.7" /> <interpretationCode codeSystem="local" code="*"/> <referenceRange > <observationRange> <text>1.8-2.4</ text> </observationRange> </referenceRange> </observation> </component> </organizer> </ entry> <entry> <organizer moodCode="EVN" classCode=& quot;BATTERY"> <templateId root=" 2.16.840.1.929847.10.20.22.4.1" /> <id nullFlavor="NA&quot ; /> <code codeSystem="local" code="GLUMON" displayName="GLUCOSE (POC)" /> <statusCode code=" completed" /> <component> <observation moodCode=& quot;EVN" classCode="OBS"> <templateId root=" 2.16.840.1.200378.10.20.22.4.2" /> <id nullFlavor="NA& quot; /> <code codeSystem="local" code="GLUMON& quot; displayName="GLUCOSE (POC)" /> <statusCode code=& quot;completed" /> <effectiveTime value="287214665791& quot; /> <value unit="mg/dL" xsi:type="PQ" value="190" /> <interpretationCode codeSystem="local& quot; code="*" /> <referenceRange> < observationRange> <text>70-99</text> </ observationRange> </referenceRange> </observation&gt ; </component> </organizer> </entry> <entry> <organizer moodCode="EVN" classCode="BATTERY"> <templateId root="2.16.840.1.098799.10.20.22.4.1" /> < id nullFlavor="NA" /> <code codeSystem="local" code="GLUMON" displayName="GLUCOSE (POC)" /> < statusCode code="completed" /> <component> < observation moodCode="EVN" classCode="OBS"> < templateId root="2.16.840.1.624473.10.20.22.4.2" /> <id nullFlavor="NA" /> <code codeSystem="local" code="GLUMON" displayName="GLUCOSE (POC)" /> &lt ;statusCode code="completed" /> <effectiveTime value=& quot;327653539631" /> <value unit="mg/dL" xsi:type ="PQ" value="226" /> <interpretationCode codeSystem="local" code="*" /> < referenceRange> <observationRange> <text>70-99</ text> </observationRange> </referenceRange> </observation> </component> </organizer> </ entry> <entry> <organizer moodCode="EVN" classCode=& quot;BATTERY"> <templateId root=" 2.16.840.1.502017.10.20.22.4.1" /> <id nullFlavor="NA&quot ; /> <code codeSystem="local" code="GLUMON" displayName="GLUCOSE (POC)" /> <statusCode code=" completed" /> <component> <observation moodCode=" EVN" classCode="OBS"> <templateId root=" 2.16.840.1.106338.10.20.22.4.2" /> <id nullFlavor="NA& quot; /> <code codeSystem="local" code="GLUMON& quot; displayName="GLUCOSE (POC)" /> <statusCode code=& quot;completed" /> <effectiveTime value="476717006521" /&gt ; <value unit="mg/dL" xsi:type="PQ" value=" 248" /> <interpretationCode codeSystem="local" code="*" /> <referenceRange> < observationRange> <text>70-99</text> < /observationRange> </referenceRange> </observation& gt; </component> </organizer> </entry> <entry&gt ; <organizer moodCode="EVN" classCode="BATTERY"> <templateId root="2.16.840.1.120470.10.20.22.4.1" /> & lt;id nullFlavor="NA" /> <code codeSystem="local&quot ; code="GLUMON" displayName="GLUCOSE (POC)" /> < statusCode code="completed" /> <component> < observation moodCode="EVN" classCode="OBS"> < templateId root="2.16.840.1.167323.10.20.22.4.2" /> < id nullFlavor="NA" /> <code codeSystem="local" code="GLUMON" displayName="GLUCOSE (POC)" /> &lt ;statusCode code="completed" /> <effectiveTime value=& quot;935796699882" /> <value unit="mg/dL" xsi:type ="PQ" value="144" /> <interpretationCode codeSystem="local" code="*" /> < referenceRange> <observationRange> <text> 70-99</text> </observationRange> </ referenceRange> </observation> </component> </ organizer> </entry> <entry> <organizer moodCode="EVN " classCode="BATTERY"> <templateId root=" 2.16.840.1.858663.10.20.22.4.1" /> <id nullFlavor="NA&quot ; /> <code codeSystem="local" code="CBCD" displayName="CBC W/DIFF" /> <statusCode code=" completed" /> <component> <observation moodCode=& quot;EVN" classCode="OBS"> <templateId root=" 2.16.840.1.889663.10.20.22.4.2" /> <id nullFlavor="NA& quot; /> <code codeSystem="local" code="EO#" displayName="EOSINOPHIL #" /> <statusCode code=" completed" /> <effectiveTime value="469072074472" /> <value unit="k/cumm" xsi:type="PQ" value=&quot ;0.2" /><referenceRange> <observationRange> <text>0.1-0.5</text> </observationRange> </referenceRange> </observation> </component > <component> <observation moodCode="EVN" classCode="OBS"> <templateId root=" 2.16.840.1.117308.10.20.22.4.2" /> <id nullFlavor="NA& quot; /> <code codeSystem="local" code="EO&#37 ;" displayName="EOSINOPHIL %" /> < statusCode code="completed" /> <effectiveTime value=& quot;848444902620" /> <value unit="%" xsi:type=& quot;PQ" value="3" /> <referenceRange> <observationRange> <text>2-4</text> </observationRange> </referenceRange> </ observation> </component> <component> < observation moodCode="EVN" classCode="OBS"> < templateId root="2.16.840.1.017721.10.20.22.4.2" /> <id nullFlavor="NA" /> <code codeSystem="local" code="GR#" displayName="GRANULOCYTE #" /> < statusCode code="completed" /> <effectiveTime value=& quot;925751326489" /> <value unit="k/cumm" xsi: type="PQ" value="3.1" /> <referenceRange> <observationRange> <text>2.0-9.0</text& gt; </observationRange> </referenceRange> </observation> </component> <component> &lt ;observation moodCode="EVN" classCode="OBS"> &lt ;templateId root="2.16.840.1.575855.10.20.22.4.2" /> < id nullFlavor="NA" /> <code codeSystem="local&quot ; code="GR%" displayName="GRANULOCYTE %" /& gt; <statusCode code="completed" /> < effectiveTime value="937296431035" /> <value unit=&quot ;%" xsi:type="PQ" value="54" /> &lt ;referenceRange> <observationRange> <text&gt ;50-75</text> </observationRange> </ referenceRange> </observation> </component> < component> <observation moodCode="EVN" classCode=" OBS"> <templateId root="2.16.840.1.333667.10.20.22.4.2& quot; /> <id nullFlavor="NA" /> <code codeSystem="local" code="LY#" displayName="LYMPHOCYTE # " /> <statusCode code="completed" /> < effectiveTime value="573752315646" /> <value unit=&quot ;k/cumm" xsi:type="PQ" value="1.9" /> < referenceRange> <observationRange> <text> 1.0-4.0</text> </observationRange> </ referenceRange> </observation> </component> < component> <observation moodCode="EVN" classCode=" OBS"> <templateId root="2.16.840.1.791928.10.20.22.4.2& quot; /> <id nullFlavor="NA" /> <code codeSystem="local" code="LY%" displayName=" LYMPHOCYTE %" /> <statusCode code="completed& quot; /><effectiveTime value="352349313132" /> < value unit="%"xsi:type="PQ" value="34" /& gt; <interpretationCode codeSystem="local" code="*& quot; /> <referenceRange> <observationRange> <text>20-30</text> </observationRange&gt ; </referenceRange> </observation> </ component> <component> <observation moodCode="EVN& quot; classCode="OBS"> <templateId root=" 2.16.840.1.569362.10.20.22.4.2" /> <id nullFlavor="NA& quot; /> <code codeSystem="local" code="MCH" displayName="MEAN CELL HGB" /> <statusCode code=" completed" /> <effectiveTime value="693016218597" /> <value unit="pg" xsi:type="PQ" value=&quot ;28.6" /> <referenceRange> < observationRange> <text>27.0-33.0</text> </observationRange> </referenceRange> </observation& gt; </component> <component> <observation moodCode="EVN" classCode="OBS"> <templateId root="2.16.840.1.581954.10.20.22.4.2" /> <id nullFlavor ="NA" /> <code codeSystem="local" code=" MCHC" displayName="MEAN CELL HGB CONCENTRATION" /> &lt ;statusCode code="completed" /> <effectiveTime value=& quot;440365849754" /> <value unit="g/dL" xsi:type= "PQ" value="33.3" /> <referenceRange> <observationRange> <text>32.0-37.0</text&gt ; </observationRange> </referenceRange> </ observation> </component> <component> < observation moodCode="EVN" classCode="OBS"> < templateId root="2.16.840.1.126938.10..22.4.2" /> < id nullFlavor="NA" /> <code codeSystem="local&quot ; code="MCV" displayName="MEAN CELL VOLUME" /> & lt;statusCode code="completed" /> <effectiveTime value= "672474127163" /> <value unit="fl" xsi:type=& quot;PQ" value="85.8" /> <referenceRange> <observationRange> <text>80.0-100.0</text> </observationRange> </referenceRange> < /observation> </component> <component> < observation moodCode="EVN" classCode="OBS"> < templateId root="2.16.840.1.723888.10.20.22.4.2" /> < id nullFlavor="NA" /> <code codeSystem="local&quot ; code="MO#" displayName="MONOCYTE #" /> < statusCode code="completed" /> <effectiveTime value=& quot;301292366630" /> <value unit="k/cumm" xsi: type="PQ" value="0.4" /> <referenceRange> <observationRange> <text>0.1-1.0</text& gt; </observationRange> </referenceRange> </ observation> </component> <component> < observation moodCode="EVN" classCode="OBS"> < templateId root="2.16.840.1.389716.10.20.22.4.2" /> <id nullFlavor="NA" /> <code codeSystem="local" code="MO%" displayName="MONOCYTE %" /> <statusCode code="completed" /> < effectiveTime value="588065868537" /> <value unit=&quot ;%" xsi:type="PQ" value="8" /> < interpretationCode codeSystem="local" code="*" /> <referenceRange> <observationRange> <text&gt ;4-6</text> </observationRange> </ referenceRange> </observation> </component> < component> <observation moodCode="EVN" classCode=" OBS"> <templateId root="2.16.840.1.657116.10.20.22.4.2" /& gt; <id nullFlavor="NA" /> <code codeSystem ="local" code="RBC" displayName="RED BLOOD CELL" / > <statusCode code="completed" /> < effectiveTime value="951595528148" /> <value unit=&quot ;m/cumm" xsi:type="PQ" value="3.46" /> < interpretationCode codeSystem="local" code="*" /> <referenceRange> <observationRange> <text& gt;4.00-6.00</text> </observationRange> </ referenceRange> </observation> </component> < component> <observation moodCode="EVN" classCode=" OBS"> <templateId root="2.16.840.1.630649.10.20.22.4.2& quot; /> <id nullFlavor="NA" /> <code codeSystem="local" code="RDW" displayName="RED CELL DISTRIBUTION WIDTH" /> <statusCode code="completed&quot ; /> <effectiveTime value="520838918858" /> <value unit="%" xsi:type="PQ" value="14.5& quot; /> <referenceRange> <observationRange> <text>11.0-15.6</text> </observationRange > </referenceRange> </observation> </ component> <component> <observation moodCode="EVN& quot; classCode="OBS"> <templateId root=" 2.16.840.1.114346.10.20.22.4.2" /> <id nullFlavor="NA& quot; /> <code codeSystem="local" code="WBC" displayName="WHITE BLOOD CELL" /> <statusCode code=& quot;completed" /> <effectiveTime value="973228578289& quot; /> <value unit="k/cumm" xsi:type="PQ" value="5.6" /> <referenceRange> < observationRange> <text>5.0-10.0</text> </ observationRange> </referenceRange> </observation&gt ; </component> <component> <observation moodCode ="EVN" classCode="OBS"> <templateId root=& quot;2.16.840.1.871107.10.20.22.4.2" /> <id nullFlavor=&quot ;NA" /> <code codeSystem="local" code="HGBT& quot; displayName="HEMOGLOBIN" /> <statusCode code=& quot;completed" /> <effectiveTime value="224833087165& quot; /> <value unit="gm/dL" xsi:type="PQ" value="9.9" /> <interpretationCode codeSystem=" local" code="*" /> <referenceRange> <observationRange> <text>12.0-16.0</text> </observationRange> </referenceRange> </ observation> </component> <component> < observation moodCode="EVN" classCode="OBS"> < templateId root="2.16.840.1.204489.10.20.22.4.2" /> <id nullFlavor="NA" /> <code codeSystem="local" code="HCTT" displayName="HEMATOCRIT" /> < statusCode code="completed" /> <effectiveTime value=& quot;592749384713" /> <value unit="%" xsi: type="PQ" value="29.7" /> < interpretationCode codeSystem="local" code="*" /> <referenceRange> <observationRange> <text> 37.0-47.0</text> </observationRange> </ referenceRange> </observation> </component>< component> <observation moodCode="EVN" classCode=" OBS"> <templateId root="2.16.840.1.362708.10.20.22.4.2" /> <id nullFlavor="NA" /> <code codeSystem="local" code="PLT" displayName="PLATELET COUNT" /> <statusCode code="completed" /> <effectiveTime value="963339535318" /> <value unit="k/cumm" xsi:type="PQ" value="161" /> <referenceRange> <observationRange> & lt;text>150-400</text> </observationRange> </ referenceRange> </observation> </component> </ organizer> </entry> <entry> <organizer moodCode="EVN " classCode="BATTERY"> <templateId root=" 2.16.840.1.552735.10.20.22.4.1" /> <id nullFlavor="NA&quot ; /> <code codeSystem="local" code="METABC" displayName="METABOLIC PANEL, COMPREHN" /> <statusCode code ="completed" /> <component> <observation moodCode ="EVN" classCode="OBS"> <templateId root=" 2.16.840.1.707808.10.20.22.4.2" /> <id nullFlavor="NA& quot; /> <code codeSystem="local" code="K" displayName="POTASSIUM" /> <statusCode code=" completed" /> <effectiveTime value="174284752666" /> <value unit="mmol/L" xsi:type="PQ" value=& quot;5.2" /> <referenceRange> < observationRange> <text>3.5-5.3</text> & lt;/observationRange></referenceRange> </observation> </component> <component> <observation moodCode=" EVN" classCode="OBS"> <templateId root=" 2.16.840.1.870008.10.20.22.4.2" /> <id nullFlavor="NA& quot; /> <code codeSystem="local" code="eGFR" displayName="EST GFR (MDRD)" /> <statusCode code=" completed" /> <effectiveTime value="327154507015" /> <value unit="mL/min" xsi:type="PQ" value=& quot;59" /> <interpretationCode codeSystem="local&quot ; code="*" /> <referenceRange> < observationRange> <text>> 59</text> </observationRange> </referenceRange> </ observation> </component> <component> < observation moodCode="EVN" classCode="OBS"> < templateId root="2.16.840.1.195361.10.20.22.4.2" /> < id nullFlavor="NA" /> <code codeSystem="local&quot ; code="GAP" displayName="ANION GAP" /> < statusCode code="completed" /> <effectiveTime value=& quot;538043861237" /> <value unit="mmol/L" xsi:type ="PQ" value="8" /> <referenceRange> < observationRange> <text>5-15</text> </ observationRange> </referenceRange> </observation&gt ; </component> <component> <observation moodCode=& quot;EVN" classCode="OBS"> <templateId root=" 2.16.840.1.287869.10.20.22.4.2" /> <id nullFlavor="NA& quot; /> <code codeSystem="local" code="eCrCl&quot ; displayName="EST CrCl (CG)" /> <statusCode code=&quot ;completed" /> <effectiveTime value="441724886961&quot ; /> <value unit="mL/min" xsi:type="PQ" value ="52" /> <interpretationCode codeSystem="local& quot; code="*" /> <referenceRange> < observationRange> <text>> 59</text> </observationRange> </referenceRange> </ observation> </component> <component> < observation moodCode="EVN" classCode="OBS"> < templateId root="2.16.840.1.077983.10..[id number]" /> < id nullFlavor="NA" /> <code codeSystem="local&quot ; code="GLU" displayName="GLUCOSE" /> < statusCode code="completed" /> <effectiveTime value=& quot;[id number]" /> <value unit="mg/dL" xsi:type ="PQ" value="262" /> <interpretationCode codeSystem="local" code="*" /> < referenceRange> <observationRange> <text>70-99</ text> </observationRange> </referenceRange> </observation> </component> <component> <observation moodCode="EVN" classCode="OBS"> <templateId root="2.16.840.1.179379.10..22.4.2" /> <id nullFlavor="NA" /> <code codeSystem=" local" code="CA" displayName="CALCIUM" /> & lt;statusCode code="completed" /> <effectiveTime value= "639136308255" /> <value unit="mg/dL" xsi: type="PQ" value="8.3" /> <interpretationCode codeSystem="local" code="*" /> < referenceRange> <observationRange> <text> 8.5-10.1</text> </observationRange> </ referenceRange> </observation> </component> < component> <observation moodCode="EVN" classCode=" OBS"> <templateId root="2.16.840.1.801658.10.20.22.4.2& quot; /> <id nullFlavor="NA" /> <code codeSystem="local" code="BUN" displayName="BLOOD UREA NITROGEN" /> <statusCode code="completed" /> <effectiveTime value="645544883194" /> < value unit="mg/dL" xsi:type="PQ" value="22" /> <interpretationCode codeSystem="local" code="*&quot ; /> <referenceRange> <observationRange> <text>7-20</text> </observationRange> </referenceRange> </observation> </component& gt; <component> <observation moodCode="EVN" classCode="OBS"> <templateId root=" 2.16.840.1.005208.10..22.4.2" /> <id nullFlavor="NA& quot; /> <code codeSystem="local" code="CREAT&quot ; displayName="CREATININE" /> <statusCode code=" completed" /> <effectiveTime value="394538507120" /> <value unit="mg/dL" xsi:type="PQ" value=& quot;1.0" /> <referenceRange> < observationRange> <text>0.6-1.0</text> & lt;/observationRange> </referenceRange> </ observation> </component> <component> < observation moodCode="EVN" classCode="OBS"> < templateId root="2.16.840.1.638414.10.20.22.4.2" /> < id nullFlavor="NA" /> <code codeSystem="local" code=& quot;NA" displayName="SODIUM" /> <statusCode code=" completed" /> <effectiveTime value="407230666594" /> <value unit="mmol/L" xsi:type="PQ" value=& quot;149" /> <interpretationCode codeSystem="local&quot ; code="*" /> <referenceRange> < observationRange> <text>135-148</text> & lt;/observationRange> </referenceRange> </ observation> </component> <component> < observation moodCode="EVN" classCode="OBS"> < templateId root="2.16.840.1.018560.10.20.22.4.2" /> < id nullFlavor="NA" /> <code codeSystem="local&quot ; code="CL" displayName="CHLORIDE" /> < statusCode code="completed" /> <effectiveTime value=& quot;986110684281" /> <value unit="mmol/L" xsi: type="PQ" value="116" /> <interpretationCode codeSystem="local" code="*" /> < referenceRange> <observationRange> <text> 98-110</text> </observationRange> </ referenceRange> </observation> </component> < component> <observation moodCode="EVN" classCode=" OBS"> <templateId root="2.16.840.1.534683.10..22.4.2& quot; /> <id nullFlavor="NA" /> <code codeSystem="local" code="AST" displayName="AST/SGOT& quot; /> <statusCode code="completed" /> & lt;effectiveTime value="205670841931" /> <value unit=& quot;Units/L" xsi:type="PQ" value="6" /> & lt;interpretationCode codeSystem="local" code="*" /> <referenceRange> <observationRange> & lt;text>10-37</text> </observationRange> < /referenceRange> </observation> </component> < component> <observation moodCode="EVN" classCode=" OBS"> <templateId root="2.16.840.1.257630.10.20.22.4.2& quot; /> <id nullFlavor="NA" /> <code codeSystem="local" code="ALT" displayName="ALT/SGPT& quot; /> <statusCode code="completed" /> & lt;effectiveTime value="151224878711" /> <value unit=& quot;Units/L" xsi:type="PQ" value="12" /> < referenceRange> <observationRange> <text> < 66</text> </observationRange> </ referenceRange> </observation> </component> < component> <observation moodCode="EVN" classCode=" OBS"> <templateId root="2.16.840.1.597264.10.20.22.4.2& quot; /> <id nullFlavor="NA" /> <code codeSystem="local" code="CO2" displayName="CARBON DIOXIDE" /> <statusCode code="completed" /> <effectiveTime value="902950562778" /> < value unit="mmol/L" xsi:type="PQ" value="25" /&gt ; <referenceRange> <observationRange> <text>21-32</text> </observationRange> </ referenceRange> </observation> </component> < component> <observation moodCode="EVN" classCode=" OBS"> <templateId root="2.16.840.1.180193.10.20.22.4.2& quot; /> <id nullFlavor="NA" /> <code codeSystem="local" code="TP" displayName="TOTAL PROTEIN " /> <statusCode code="completed" /> & lt;effectiveTime value="754705864527" /> <value unit=& quot;gm/dL" xsi:type="PQ" value="5.5" /> & lt;interpretationCode codeSystem="local" code="*" /> <referenceRange> <observationRange> & lt;text>6.4-8.2</text> </observationRange> </ referenceRange> </observation> </component> < component> <observation moodCode="EVN" classCode=" OBS"> <templateId root="2.16.840.1.553325.10.20.22.4.2& quot; /> <id nullFlavor="NA" /> <code codeSystem="local" code="ALB" displayName="ALBUMIN&quot ; /> <statusCode code="completed" /> < effectiveTime value="357680251080" /> <value unit=&quot ;gm/dL" xsi:type="PQ" value="2.9" /> < interpretationCode codeSystem="local" code="*" /> <referenceRange> <observationRange> < text>3.4-5.0</text> </observationRange> </ referenceRange> </observation> </component> < component> <observation moodCode="EVN" classCode=" OBS"> <templateId root="2.16.840.1.410930.10.20.22.4.2& quot; /> <id nullFlavor="NA" /> <code codeSystem="local" code="BILTOT" displayName="BILI TOTAL" /> <statusCodecode="completed" /> <effectiveTime value="126639626925" /> <value unit=& quot;mg/dL" xsi:type="PQ" value="0.4" /> & lt;referenceRange> <observationRange> <text& gt;0.0-1.0</text> </observationRange> </ referenceRange> </observation> </component> < component> <observation moodCode="EVN" classCode=" OBS"> <templateId root="2.16.840.1.343167.10.20.22.4.2& quot; /> <id nullFlavor="NA" /> <code codeSystem="local" code="ALKP" displayName="ALKALINE PHOSPHATASE TOTAL" /> <statusCode code="completed&quot ; /> <effectiveTime value="549270289755" /> < value unit="IU/L" xsi:type="PQ" value="41" /> <interpretationCode codeSystem="local" code="*" /> <referenceRange> <observationRange> <text>45-117</text> </observationRange> </referenceRange> </observation> </component&gt ; </organizer> </entry> <entry> <organizer moodCode ="EVN" classCode="BATTERY"> <templateId root=& quot;2.16.840.1.977011.10.20.22.4.1" /> <id nullFlavor="NA& quot; /> <code codeSystem="local" code="PHOS" displayName="PHOSPHORUS" /> <statusCode code=" completed" /> <component> <observation moodCode=& quot;EVN" classCode="OBS"> <templateId root=" 2.16.840.1.062053.10.20.22.4.2" /> <id nullFlavor="NA& quot; /> <code codeSystem="local" code="PHOS&quot ; displayName="PHOSPHORUS" /> <statusCode code=" completed" /> <effectiveTime value="842422197574" /> <value unit="mg/dL" xsi:type="PQ" value="1.8 " /> <interpretationCode codeSystem="local" code=& quot;*" /> <referenceRange> < observationRange> <text>2.5-4.9</text> & lt;/observationRange> </referenceRange> </ observation> </component> </organizer> </entry> & lt;entry> <organizer moodCode="EVN" classCode="BATTERY& quot;> <templateId root="2.16.840.1.582561.10.20.22.4.1" /> <id nullFlavor="NA" /> <code codeSystem="local " code="MAG" displayName="MAGNESIUM" /> < statusCode code="completed" /> <component> < observation moodCode="EVN" classCode="OBS"> < templateId root="2.16.840.1.663286.10.20.22.4.2" /> < id nullFlavor="NA" /> <code codeSystem="local" code=& quot;MAG" displayName="MAGNESIUM" /> <statusCode code="completed" /> <effectiveTime value=" 089826014013" /> <value unit="mg/dL" xsi:type=& quot;PQ" value="1.4" /> <interpretationCode codeSystem="local" code="*" /> <referenceRange& gt; <observationRange> <text>1.8-2.4</ text> </observationRange> </referenceRange> </observation> </component> </organizer> </ entry> <entry> <organizer moodCode="EVN" classCode=& quot;BATTERY"> <templateId root=" 2.16.840.1.067340.10.20.22.4.1" /> <id nullFlavor="NA&quot ; /> <code codeSystem="local" code="GLUMON" displayName="GLUCOSE (POC)" /> <statusCode code=" completed" /> <component> <observation moodCode=& quot;EVN" classCode="OBS"> <templateId root=" 2.16.840.1.342932.10.20.22.4.2" /> <id nullFlavor="NA& quot; /> <code codeSystem="local" code="GLUMON& quot; displayName="GLUCOSE (POC)" /> <statusCode code=& quot;completed" /> <effectiveTime value="377549718613& quot; /> <value unit="mg/dL" xsi:type="PQ" value= "258" /> <interpretationCode codeSystem="local& quot; code="*" /> <referenceRange> < observationRange> <text>70-99</text> < /observationRange> </referenceRange> </observation& gt; </component> </organizer> </entry> <entry&gt ; <organizer moodCode="EVN" classCode="BATTERY"> <templateId root="2.16.840.1.190975.10.20.22.4.1" /> & lt;id nullFlavor="NA" /> <code codeSystem="local&quot ; code="CAMPYAG" displayName="CAMPYLOBACTER ANTIGEN" /> <statusCode code="completed" /> <component> <observation moodCode="EVN" classCode="OBS"> <templateId root="2.16.840.1.819748.10.20.22.4.2" /> <id nullFlavor="NA" /> <code codeSystem=" local" code="MB" displayName="Microbiology" /> <statusCode code="completed" /> <effectiveTime value="959368571587" /> <value xsi:type="ST" value="<pre><b>CAMPYLOBACTER ANTIGEN - STOOL CULTURE - E. COLI SHIGA-LIKE TOXIN</b> See BelowCAMPYLOBACTER ANTIGEN(F) Rishi Date/ Time: 07/25/2014 08:09 Radha Date/Time: 07/27/2014 09: 56SOURCE: STOOLSPEC DESC: CAMPYLOBACTERANTIGENNEGATIVEWE[facility] - [id number] [place], [place] [address]Jec BelowSTOOL CULTURE(F) Rishi Date/Time: 07/25/2014 08:09 Radha Date/Time: 07/27/2014 09:56SOURCE: STOOLSPEC DESC: NO MORIS OR SHIGNEGATIVE FOR SALMONELLA AND SHIGELLANO E. COLI 0157NO E. COLI 0157:H7 ISOLATEDWE[facility]LEY [facility] - [id number] [place], [place] [address]Yuv BelowE. COLISHIGA-LIKE TOXIN (F) Rishi Date/Time: 07/25/2014 08:09 Radha Date/ Time: 07/27/2014 09:56SOURCE: STOOLSPEC DESC: SHIGA-TOXIN 1NEGATIVESHIGA- TOXIN 2NEGATIVEWE[facility] - [id number] [place] [address]</ pre>" /> <referenceRange> < observationRange> <text /> </ observationRange> </referenceRange> </observation&gt ; </component> </organizer> </entry> <entry> <organizer moodCode="EVN" classCode="BATTERY"> <templateId root="2.16.840.1.654225.10.20.22.4.1" /> < id nullFlavor="NA" /> <code codeSystem="local" code="STWBC" displayName="STOOL LEUKOCYTES" /> < statusCode code="completed" /> <component> < observation moodCode="EVN" classCode="OBS"> < templateId root="2.16.840.1.727715.10..22.4.2" /> < id nullFlavor="NA" /> <code codeSystem="local&quot ; code="MB" displayName="Microbiology" /> < statusCode code="completed" /> <effectiveTime value=& quot;306942052790" /> <value xsi:type="ST" value=& quot;<pre><b>STOOL LEUKOCYTES</b> See BelowSTOOL LEUKOCYTES(F ) Rishi Date/Time: 07/25/2014 08:09 Radha Date/Time: 07/25/2014 14:47SOURCE: STOOLSPEC DESC: UNKNOWNSTWBC RESULTNO NEUTROPHILS [facility] [place] - [phone] [place] [address]</ pre>" /> <referenceRange> < observationRange> <text /> </observationRange&gt ; </referenceRange></observation> </component> </organizer> </entry> <entry><organizer moodCode=&quot ;EVN" classCode="BATTERY"> <templateId root=" 2.16.840.1.668929.10.20.22.4.1" /> <id nullFlavor="NA&quot ; /> <code codeSystem="local" code="OP" displayName="OVA AND PARASITES" /> <statusCode code=" completed" /> <component> <observation moodCode=& quot;EVN" classCode="OBS"> <templateId root=" 2.16.840.1.702851.10.20.22.4.2" /> <id nullFlavor="NA& quot; /> <code codeSystem="local" code="MB" displayName="Microbiology" /> <statusCode code=" completed" /> <effectiveTime value="647332676044" /> <value xsi:type="ST" value="<pre><b&gt ;OVA AND PARASITES</b> See BelowOVA AND PARASITES(F) Rishi Date/ Time: 07/25/2014 08:09 Radha Date/Time: 07/26/2014 14:14SOURCE: STOOLSPEC DESC: BARIUM AND MEDICATIONS SUCH ANTIBIOTICS AND NONABSORBABLEANTIDIARHEAL PREPARATIONS INTERFERE WITH THE DETECTION OFINTESTINAL PARASITES. SPECIMEN COLLECTION FOR PARASITESSHOULD BE DELAYED 7 - 14 DAYS AFTER THESE TREATMENTS.TNPTEST NOT PERFORMEDWEST VALLEY [facility] - [phone] [place] [address]</pre>" /> < referenceRange> <observationRange> <text /& gt; </observationRange> </referenceRange> </ observation> </component> </organizer> </entry> & lt;entry> <organizer moodCode="EVN" classCode="BATTERY& quot;> <templateId root="2.16.840.1.408539.10.20.22.4.1" /& gt; <id nullFlavor="NA" /> <code codeSystem=" local" code="GLUMON" displayName="GLUCOSE (POC)" /> <statusCode code="completed" /> <component> <observation moodCode="EVN" classCode="OBS"> <templateId root="2.16.840.1.634052.10.20.22.4.2" /> & lt;id nullFlavor="NA" /> <code codeSystem="local& quot; code="GLUMON" displayName="GLUCOSE (POC)" /> <statusCode code="completed" /> <effectiveTime value="926216630408" /> <value unit="mg/dL" xsi:type="PQ" value="316" /> < interpretationCode codeSystem="local" code="*" /> <referenceRange> <observationRange> < text>70-99</text> </observationRange> </ referenceRange> </observation> </component> </ organizer> </entry> <entry> <organizer moodCode="EVN " classCode="BATTERY"> <templateId root=" 2.16.840.1.939266.10.20.22.4.1" /> <id nullFlavor="NA&quot ; /> <code codeSystem="local" code="HH" displayName="HGB HCT" /> <statusCode code="completed " /> <component> <observation moodCode="EVN& quot; classCode="OBS"> <templateId root=" 2.16.840.1.929094.10.20.22.4.2" /> <id nullFlavor="NA& quot; /> <code codeSystem="local" code="MCV" displayName="MEANCELL VOLUME" /> <statusCode code=&quot ;completed" /> <effectiveTime value="846328114752&quot ; /> <value unit="fl" xsi:type="PQ" value=& quot;85.5" /> <referenceRange> < observationRange> <text>80.0-100.0</text> </observationRange> </referenceRange> </ observation> </component> <component> <observation moodCode="EVN" classCode="OBS"> <templateId root="2.16.840.1.935629.10.20.22.4.2" /> <id nullFlavor ="NA" /> <code codeSystem="local" code="HGBT& quot; displayName="HEMOGLOBIN" /> <statusCode code=& quot;completed" /> <effectiveTime value="497775914846& quot; /> <value unit="gm/dL" xsi:type="PQ" value="10.4" /> <interpretationCode codeSystem=" local" code="*" /> <referenceRange> <observationRange> <text>12.0-16.0</text> </observationRange> </referenceRange> </ observation> </component> <component> < observation moodCode="EVN" classCode="OBS"> < templateId root="2.16.840.1.171749.10.20.22.4.2" /> < id nullFlavor="NA" /> <code codeSystem="local&quot ; code="HCTT" displayName="HEMATOCRIT" /> < statusCode code="completed" /> <effectiveTime value=& quot;640559172119" /> <value unit="%" xsi:type=& quot;PQ" value="31.2" /><interpretationCode codeSystem=& quot;local" code="*" /> <referenceRange> <observationRange> <text>37.0-47.0</text> </observationRange> </referenceRange> </ observation> </component> </organizer> </entry> & lt;entry> <organizer moodCode="EVN" classCode="BATTERY& quot;> <templateId root="2.16.840.1.749243.10.20.22.4.1" /& gt; <id nullFlavor="NA" /> <code codeSystem=" local" code="METAB" displayName="METABOLIC PANEL, BASIC&quot ; /> <statusCode code="completed" /> <component& gt; <observation moodCode="EVN" classCode="OBS"&gt ; <templateId root="2.16.840.1.994886.10.20.22.4.2" /> <id nullFlavor="NA" /> <code codeSystem=& quot;local" code="K" displayName="POTASSIUM" /> <statusCode code="completed" /> < effectiveTime value="644752632692" /> <value unit=&quot ;mmol/L" xsi:type="PQ" value="4.6" /> < referenceRange> <observationRange> <text> 3.5-5.3</text> </observationRange> </ referenceRange> </observation> </component> < component> <observation moodCode="EVN" classCode=" OBS"> <templateId root="2.16.840.1.674882.10.20.22.4.2& quot; /> <id nullFlavor="NA" /> <code codeSystem="local" code="eGFR" displayName="EST GFR ( MDRD)" /> <statusCode code="completed" /> <effectiveTime value="204396202964" /> <value unit ="mL/min" xsi:type="PQ" value="> 60" /> <referenceRange> <observationRange> < text>> 59</text> </observationRange> & lt;/referenceRange> </observation> </component> <component> <observation moodCode="EVN" classCode=& quot;OBS"> <templateId root=" 2.16.840.1.854147.10.20.22.4.2" /> <id nullFlavor="NA& quot; /> <code codeSystem="local" code="GAP" displayName="ANION GAP" /> <statusCode code=" completed" /> <effectiveTime value="051324157790" /> <value unit="mmol/L" xsi:type="PQ" value=& quot;5" /> <referenceRange> < observationRange> <text>5-15</text> </ observationRange></referenceRange> </observation> &lt ;/component> <component> <observation moodCode="EVN& quot; classCode="OBS"> <templateId root=" 2.16.840.1.889013.10.20.22.4.2" /> <id nullFlavor="NA& quot; /> <code codeSystem="local" code="eCrCl&quot ; displayName="EST CrCl (CG)" /> <statusCode code=&quot ;completed" /> <effectiveTime value="836648268849&quot ; /> <value unit="mL/min" xsi:type="PQ" value ="58" /> <interpretationCode codeSystem="local& quot; code="*" /> <referenceRange> < observationRange> <text>> 59</text> </observationRange> </referenceRange> </ observation> </component> <component> < observation moodCode="EVN" classCode="OBS"> < templateId root="2.16.840.1.199790.10.20.22.4.2" /> < id nullFlavor="NA" /> <code codeSystem="local&quot ; code="GLU" displayName="GLUCOSE" /> < statusCode code="completed" /> <effectiveTime value=& quot;219227739668" /> <value unit="mg/dL" xsi:type=& quot;PQ" value="252" /><interpretationCode codeSystem=&quot ;local" code="*" /> <referenceRange> <observationRange> <text>70-99</text> </observationRange> </referenceRange> </ observation> </component> <component> < observation moodCode="EVN" classCode="OBS"> < templateId root="2.16.840.1.779282.10.20.22.4.2" /> < id nullFlavor="NA" /> <code codeSystem="local&quot ; code="CA" displayName="CALCIUM" /> < statusCode code="completed" /> <effectiveTime value=" 131178898045" /> <value unit="mg/dL" xsi:type=& quot;PQ" value="8.7" /> <referenceRange> <observationRange> <text>8.5-10.1</text> </observationRange> </referenceRange> </ observation> </component> <component> < observation moodCode="EVN" classCode="OBS"> < templateId root="2.16.840.1.802142.10.20.22.4.2" /> < id nullFlavor="NA" /> <code codeSystem="local&quot ; code="BUN" displayName="BLOODUREA NITROGEN" /> <statusCode code="completed" /> <effectiveTime value="767538328650" /> <value unit="mg/dL" xsi:type="PQ" value="19" /> <referenceRange& gt; <observationRange> <text>7-20</text& gt; </observationRange> </referenceRange> </observation> </component> <component> &lt ;observation moodCode="EVN" classCode="OBS"> &lt ;templateId root="2.16.840.1.663024.10.20.22.4.2" /> < id nullFlavor="NA" /> <code codeSystem="local" code=& quot;CREAT" displayName="CREATININE" /> < statusCode code="completed" /> <effectiveTime value=& quot;680608572494" /> <value unit="mg/dL" xsi:type ="PQ" value="0.9" /> <referenceRange> <observationRange> <text>0.6-1.0</text> </observationRange> </referenceRange> </ observation> </component> <component> < observation moodCode="EVN" classCode="OBS"> < templateId root="2.16.840.1.776650.10.20.22.4.2" /> < id nullFlavor="NA" /> <code codeSystem="local&quot ; code="NA" displayName="SODIUM" /> < statusCode code="completed" /> <effectiveTime value=& quot;883457018467" /> <value unit="mmol/L" xsi:type=& quot;PQ" value="137" /><referenceRange> < observationRange> <text>135-148</text> & lt;/observationRange> </referenceRange> </ observation> </component> <component> < observation moodCode="EVN" classCode="OBS"> < templateId root="2.16.840.1.484505.10.20.22.4.2" /> < id nullFlavor="NA" /> <code codeSystem="local&quot ; code="CL" displayName="CHLORIDE" /> < statusCode code="completed" /> <effectiveTime value=& quot;377708517008" /> <value unit="mmol/L" xsi: type="PQ" value="109" /> <referenceRange> <observationRange> <text>98-110</text&gt ; </observationRange> </referenceRange> & lt;/observation> </component> <component> < observation moodCode="EVN" classCode="OBS"> < templateId root="2.16.840.1.674228.10.20.22.4.2" /> < id nullFlavor="NA" /> <code codeSystem="local&quot ; code="CO2" displayName="CARBON DIOXIDE" /> &lt ;statusCode code="completed" /> <effectiveTime value=" 143839301314" /> <value unit="mmol/L"xsi:type=& quot;PQ" value="23" /> <referenceRange> <observationRange> <text>21-32</text> </observationRange> </referenceRange> </ observation> </component> </organizer> </entry> & lt;entry> <organizer moodCode="EVN" classCode="BATTERY& quot;> <templateId root="2.16.840.1.522144.10.20.22.4.1" /& gt; <id nullFlavor="NA" /> <code codeSystem=" local" code="CBCD" displayName="CBC W/DIFF" /> <statusCode code="completed" /> <component> & lt;observation moodCode="EVN" classCode="OBS"> & lt;templateId root="2.16.840.1.365574.10.20.22.4.2" /> &lt ;id nullFlavor="NA" /> <code codeSystem="local& quot; code="EO#" displayName="EOSINOPHIL #" /> & lt;statusCode code="completed" /> <effectiveTime value= "562161123876" /> <value unit="k/cumm" xsi: type="PQ" value="0.2" /> <referenceRange> <observationRange> <text>0.1-0.5</text&gt ; </observationRange> </referenceRange> & lt;/observation> </component> <component> < observation moodCode="EVN" classCode="OBS"> < templateId root="2.16.840.1.227499.10.20.22.4.2" /> < id nullFlavor="NA" /><code codeSystem="local" code=& quot;EO%" displayName="EOSINOPHIL %" /> <statusCode code="completed" /> < effectiveTimevalue="946516843097" /> <value unit=" %" xsi:type="PQ" value="2" /> < referenceRange> <observationRange> <text>2- 4</text> </observationRange> </referenceRange > </observation> </component> <component> <observation moodCode="EVN" classCode="OBS"> <templateId root="2.16.840.1.926538.10.20.22.4.2" /> <id nullFlavor="NA" /> <code codeSystem=& quot;local" code="GR#" displayName="GRANULOCYTE #" /&gt ; <statusCode code="completed" /> < effectiveTime value="586708462865" /> <value unit=&quot ;k/cumm" xsi:type="PQ" value="6.2" /> < referenceRange> <observationRange> <text> 2.0-9.0</text> </observationRange> </ referenceRange></observation> </component> < component> <observation moodCode="EVN" classCode=" OBS"> <templateId root="2.16.840.1.624255.10.20.22.4.2& quot; /> <id nullFlavor="NA" /> <code codeSystem="local" code="GR%" displayName=" GRANULOCYTE %" /> <statusCode code="completed" /> <effectiveTime value="116928331872" /> & lt;value unit="%" xsi:type="PQ" value="68&quot ; /> <referenceRange> <observationRange> <text>50-75</text> </observationRange> </referenceRange> </observation> </component& gt; <component> <observation moodCode="EVN" classCode="OBS"> <templateId root=" 2.16.840.1.590593.10.20.22.4.2" /> <id nullFlavor="NA& quot; /> <code codeSystem="local" code="LY#" displayName="LYMPHOCYTE #" /> <statusCode code=" completed" /> <effectiveTime value="406237666873" /> <value unit="k/cumm" xsi:type="PQ" value=& quot;2.3" /> <referenceRange> <observationRange> <text>1.0-4.0</text> </observationRange& gt; </referenceRange> </observation> </ component> <component> <observation moodCode="EVN& quot; classCode="OBS"> <templateId root=" 2.16.840.1.079936.10.20.22.4.2" /> <id nullFlavor="NA& quot; /> <code codeSystem="local" code="LY&#37 ;" displayName="LYMPHOCYTE %" /> < statusCodecode="completed" /> <effectiveTime value=& quot;810792478183" /> <value unit="%" xsi:type= "PQ" value="25" /> <referenceRange> < observationRange> <text>20-30</text> < /observationRange> </referenceRange> </observation& gt; </component> <component> <observation moodCode="EVN" classCode="OBS"> <templateId root="2.1[id number]" /> <id nullFlavor ="NA" /> <code codeSystem="local" code=" MCH" displayName="MEAN CELL HGB" /> <statusCode code="completed" /> <effectiveTime value=" [id number]" /> <value unit="pg" xsi:type=" PQ" value="26.7" /> <interpretationCode codeSystem ="local" code="*" /> <referenceRange> <observationRange> <text>27.0-33.0</text&gt ; </observationRange> </referenceRange> & lt;/observation> </component> <component> < observation moodCode="EVN" classCode="OBS">< templateId root="[id number]" /> < id nullFlavor="NA" /> <code codeSystem="local&quot ; code="[facility]C" displayName="MEAN CELL HGB CONCENTRATION" /&gt ; <statusCode code="completed" /> < effectiveTime value="[id number]" /> <value unit=&quot ;g/dL" xsi:type="PQ" value="32.4" /> < referenceRange> <observationRange> <text> 32.0-37.0</text> </observationRange> </ referenceRange> </observation> </component> < component> <observation moodCode="EVN" classCode=" OBS"> <templateId root="2.16.840.1.270056.10.20.22.4.2& quot; /> <id nullFlavor="NA" /> <code codeSystem="local" code="MCV" displayName="MEAN CELL VOLUME" /> <statusCode code="completed" /> <effectiveTime value="769101396253" /> <value unit="fl" xsi:type="PQ" value="82.3" /> <referenceRange> <observationRange> < text>80.0-100.0</text> </observationRange> </ referenceRange> </observation> </component> < component> <observation moodCode="EVN" classCode="OBS& quot;> <templateIdroot="2.16.840.1.928670.10.20.22.4.2&quot ; /> <id nullFlavor="NA" /> <code codeSystem="local" code="MO#" displayName="MONOCYTE #& quot; /> <statusCode code="completed" /> & lt;effectiveTime value="676226514132" /> <value unit=& quot;k/cumm" xsi:type="PQ" value="0.5" /> & lt;referenceRange> <observationRange> <text>0.1-1.0& lt;/text> </observationRange> </referenceRange& gt; </observation> </component> <component> <observation moodCode="EVN" classCode="OBS"> <templateId root="2.16.840.1.320456.10.20.22.4.2" /> <id nullFlavor="NA" /> <code codeSystem=&quot ;local" code="MO%" displayName="MONOCYTE %& quot; /> <statusCode code="completed" /> & lt;effectiveTime value="302124842669" /> <value unit=& quot;%" xsi:type="PQ" value="5" /> <referenceRange> <observationRange><text>4-6</ text> </observationRange> </referenceRange> </observation> </component> <component> & lt;observation moodCode="EVN" classCode="OBS"> & lt;templateId root="2.16.840.1.677481.10.20.22.4.2" /> &lt ;id nullFlavor="NA" /> <code codeSystem="local& quot; code="RBC" displayName="RED BLOOD CELL" /> <statusCode code="completed" /> <effectiveTime value="722800995033"/> <value unit="m/cumm" xsi:type="PQ" value="4.57" /> <referenceRange > <observationRange> <text>4.00-6.00</ text> </observationRange> </referenceRange> </observation> </component> <component> <observation moodCode="EVN" classCode="OBS"> <templateId root="2.16.840.1.041629.10.20.22.4.2" /> <id nullFlavor="NA" /> <code codeSystem=" local" code="RDW" displayName="RED CELL DISTRIBUTION WIDTH& quot; /> <statusCode code="completed" /> & lt;effectiveTime value="819505170819"/> <value unit=& quot;%" xsi:type="PQ" value="13.7" /> <referenceRange> <observationRange> < text>11.0-15.6</text> </observationRange> &lt ;/referenceRange> </observation> </component> & lt;component> <observation moodCode="EVN" classCode=&quot ;OBS"> <templateId root="2.16.840.1.577510.10.20.22.4.2 " /> <id nullFlavor="NA" /> <code codeSystem="local" code="WBC" displayName="WHITE BLOOD CELL" /> <statusCode code="completed" /> <effectiveTime value="970898350594" /> <value unit= "k/cumm" xsi:type="PQ" value="9.1" /> < referenceRange> <observationRange> <text> 5.0-10.0</text> </observationRange> </ referenceRange> </observation> </component> < component> <observation moodCode="EVN" classCode=" OBS"> <templateId root="2.16.840.1.954113.10.20.22.4.2& quot; /> <id nullFlavor="NA" /> <code codeSystem="local" code="HGBT" displayName="HEMOGLOBIN& quot; /> <statusCode code="completed" /> & lt;effectiveTime value="090210197556" /> <value unit=& quot;gm/dL" xsi:type="PQ" value="12.2" /> & lt;referenceRange> <observationRange> <text& gt;12.0-16.0</text></observationRange> </referenceRange& gt; </observation> </component> <component> <observation moodCode="EVN" classCode="OBS"> <templateId root="2.16.840.1.418844...22.4.2" /> <id nullFlavor="NA" /> <code codeSystem=&quot ;local" code="HCTT" displayName="HEMATOCRIT" /> <statusCode code="completed" /> <effectiveTime value="450824055163" /> <value unit="%& quot; xsi:type="PQ" value="37.6" /> < referenceRange> <observationRange> <text>37.0- 47.0</text> </observationRange> </ referenceRange> </observation> </component> < component> <observation moodCode="EVN" classCode=" OBS"> <templateId root="2.16.840.1.448873.10.20.22.4.2&quot ; /> <id nullFlavor="NA" /> <code codeSystem="local" code="PLT" displayName="PLATELET COUNT" /> <statusCode code="completed" /> <effectiveTime value="898254623421" /> <value unit="k/cumm" xsi:type="PQ" value="191" /> <referenceRange> <observationRange> & lt;text>150-450</text> </observationRange> </ referenceRange> </observation> </component> </ organizer> </entry> <entry> <organizer moodCode="EVN " classCode="BATTERY"> <templateId root=" 2.16.840.1.496484.10.20.22.4.1" /> <id nullFlavor="NA&quot ; /> <code codeSystem="local" code="SED" displayName="SED RATE" /> <statusCode code="completed& quot; /> <component> <observation moodCode="EVN& quot; classCode="OBS"> <templateId root=" 2.16.840.1.014224.10.20.22.4.2" /> <id nullFlavor="NA& quot; /> <code codeSystem="local" code="SED" displayName="SED RATE" /> <statusCode code=" completed" /> <effectiveTime value="365009885178" /> <value unit="mm/hr" xsi:type="PQ" value=& quot;11" /> <referenceRange> < observationRange> <text>0-15</text> </ observationRange> </referenceRange> </observation&gt ; </component> </organizer> </entry> <entry> <organizer moodCode="EVN" classCode="BATTERY"> <templateId root="2.16.840.1.975106.10.20.22.4.1" /> < id nullFlavor="NA" /> <code codeSystem="local" code= "METABC" displayName="METABOLIC PANEL, COMPREHN" /> <statusCode code="completed" /> <component> < observation moodCode="EVN" classCode="OBS"> < templateId root="2.16.840.1.083800.10.20.22.4.2" /> < id nullFlavor="NA" /> <code codeSystem="local" code="K" displayName="POTASSIUM" /> < statusCode code="completed" /> <effectiveTime value=& quot;745655755814" /> <value unit="mmol/L" xsi: type="PQ" value="4.3" /> <referenceRange> <observationRange> <text>3.5-5.3</text& gt; </observationRange> </referenceRange> & lt;/observation> </component> <component> < observation moodCode="EVN" classCode="OBS"> < templateId root="2.16.840.1.609695.10.20.22.4.2" /> < id nullFlavor="NA" /> <code codeSystem="local&quot ; code="eGFR" displayName="EST GFR (MDRD)" /> & lt;statusCode code="completed" /> <effectiveTime value= "979321381680" /> <value unit="mL/min" xsi: type="PQ" value="34" /> <interpretationCode codeSystem="local" code="*" /> < referenceRange> <observationRange> <text> > 59</text> </observationRange> </ referenceRange> </observation> </component> < component> <observation moodCode="EVN" classCode=" OBS"> <templateId root="2.16.840.1.424785.10.20.22.4.2& quot; /> <id nullFlavor="NA" /> <code codeSystem="local" code="GAP" displayName="ANION GAP& quot; /> <statusCode code="completed" /> & lt;effectiveTime value="933562719936" /> <value unit=& quot;mmol/L" xsi:type="PQ" value="12" /> & lt;referenceRange> <observationRange> <text&gt ;5-15</text> </observationRange> </ referenceRange> </observation> </component> < component> <observation moodCode="EVN" classCode=" OBS"> <templateId root="2.16.840.1.229349.10.20.22.4.2& quot; /> <id nullFlavor="NA" /> <code codeSystem="local" code="eCrCl" displayName="EST CrCl ( CG)" /> <statusCode code="completed" /> < effectiveTime value="927195242844" /> <value unit=&quot ;mL/min" xsi:type="PQ" value="38" /> < interpretationCode codeSystem="local" code="*" /> <referenceRange> <observationRange> < text>> 59</text> </observationRange> & lt;/referenceRange> </observation> </component> <component> <observation moodCode="EVN" classCode="OBS& quot;> <templateId root="2.16.840.1.269711.10.20.22.4.2&quot ; /> <id nullFlavor="NA" /> <code codeSystem= "local" code="GLU" displayName="GLUCOSE" /> <statusCode code="completed" /> < effectiveTime value="505590076873" /> <value unit=&quot ;mg/dL" xsi:type="PQ" value="238" /> < interpretationCode codeSystem="local" code="*" /> <referenceRange> <observationRange> <text >70-99</text> </observationRange> </ referenceRange> </observation> </component> < component> <observation moodCode="EVN" classCode=" OBS"> <templateId root="2.16.840.1.573442.10.20.22.4.2& quot; /> <id nullFlavor="NA" /> <code codeSystem="local" code="CA" displayName="CALCIUM&quot ; /> <statusCode code="completed" /> < effectiveTime value="448397161888" /> <value unit=&quot ;mg/dL" xsi:type="PQ" value="9.0" /> < referenceRange> <observationRange> <text> 8.5-10.1</text> </observationRange> </ referenceRange> </observation> </component> < component> <observation moodCode="EVN" classCode=" OBS"> <templateId root="2.16.840.1.660341.10.20.22.4.2& quot; /> <idnullFlavor="NA" /> <code codeSystem="local" code="BUN" displayName="BLOOD UREA NITROGEN" /> <statusCode code="completed" /> <effectiveTime value="405899094044" /> < value unit="mg/dL" xsi:type="PQ" value="24" /> <interpretationCode codeSystem="local" code="*&quot ; /> <referenceRange> <observationRange> <text>7-20</text> </observationRange> &lt ;/referenceRange> </observation> </component> & lt;component> <observation moodCode="EVN" classCode=" OBS"> <templateIdroot="2.16.840.1.563880.10.20.22.4.2& quot; /> <id nullFlavor="NA" /> <code codeSystem="local" code="CREAT" displayName="CREATININE " /> <statusCode code="completed" /> & lt;effectiveTime value="324899332443" /> <value unit=& quot;mg/dL" xsi:type="PQ" value="1.5" /> & lt;interpretationCode codeSystem="local" code="*" /> <referenceRange> <observationRange> & lt;text>0.6-1.0</text> </observationRange> & lt;/referenceRange> </observation> </component> <component> <observation moodCode="EVN" classCode=& quot;OBS"> <templateId root=" 2.16.840.1.193227.10.20.22.4.2" /> <id nullFlavor="NA& quot; /> <code codeSystem="local" code="NA" displayName="SODIUM" /> <statusCode code=" completed" /> <effectiveTime value="793583203699" /> <value unit="mmol/L" xsi:type="PQ" value=& quot;139" /> <referenceRange> < observationRange> <text>135-148</text> </ observationRange> </referenceRange> </observation&gt ; </component> <component> <observation moodCode ="EVN" classCode="OBS"> <templateId root=& quot;2.16.840.1.350222.10.20.22.4.2" /> <id nullFlavor="NA& quot; /> <code codeSystem="local" code="CL" displayName="CHLORIDE" /> <statusCode code=" completed" /> <effectiveTime value="537049288043" /> <value unit="mmol/L" xsi:type="PQ" value=& quot;106" /> <referenceRange> <observationRange&gt ; <text>98-110</text> </observationRange& gt; </referenceRange> </observation> </ component> <component> <observation moodCode="EVN& quot; classCode="OBS"> <templateId root=" 2.16.840.1.957059.10..22.4.2" /> <id nullFlavor="NA& quot; /> <code codeSystem="local" code="AST" displayName="AST/SGOT" /> <statusCode code=" completed" /> <effectiveTime value="864547924670" /> <value unit="Units/L" xsi:type="PQ" value= "13" /> <referenceRange> < observationRange> <text>10-37</text> < /observationRange> </referenceRange> </observation& gt; </component> <component><observation moodCode=&quot ;EVN" classCode="OBS"> <templateId root=" 2.16.840.1.461643.10.20.22.4.2" /> <id nullFlavor="NA& quot; /> <code codeSystem="local" code="ALT" displayName="ALT/SGPT" /> <statusCode code=" completed" /> <effectiveTime value="973318832692" /> <value unit="Units/L" xsi:type="PQ" value= "< 6" /> <referenceRange> < observationRange> <text>< 66</text> </ observationRange> </referenceRange> </observation&gt ; </component> <component> <observation moodCode ="EVN" classCode="OBS"> <templateId root=& quot;2.16.840.1.164638.10.20.22.4.2" /> <id nullFlavor=&quot ;NA" /> <code codeSystem="local" code="CO2& quot; displayName="CARBON DIOXIDE" /> <statusCode code=& quot;completed" /> <effectiveTime value="454306003205& quot; /> <value unit="mmol/L" xsi:type="PQ" value="21" /> <referenceRange> < observationRange> <text>21-32</text> < /observationRange> </referenceRange> </observation& gt; </component> <component> <observation moodCode="EVN" classCode="OBS"> <templateId root="2.16.840.1.640519.10..22.4.2" /> <id nullFlavor ="NA" /> <code codeSystem="local" code=" TP" displayName="TOTAL PROTEIN" /> <statusCodecode ="completed" /> <effectiveTime value="876200644522 " /> <value unit="gm/dL" xsi:type="PQ" value= "6.7" /> <referenceRange> < observationRange> <text>6.4-8.2</text> & lt;/observationRange> </referenceRange> </ observation> </component> <component> < observation moodCode="EVN" classCode="OBS"> < templateId root="2.16.840.1.558397.10..22.4.2" /> <id nullFlavor="NA" /> <code codeSystem="local" code="ALB" displayName="ALBUMIN" /> < statusCode code="completed" /> <effectiveTime value=& quot;287240998581" /> <value unit="gm/dL" xsi:type ="PQ" value="3.7" /> <referenceRange> <observationRange> <text>3.4-5.0</text> </observationRange> </referenceRange> </ observation> </component> <component> < observation moodCode="EVN" classCode="OBS"> < templateId root="2.16.840.1.096109.10.20.22.4.2" /> < id nullFlavor="NA" /> <code codeSystem="local&quot ; code="BILTOT" displayName="BILI TOTAL" /> < statusCode code="completed" /><effectiveTime value=" 862274695512" /> <value unit="mg/dL" xsi:type=& quot;PQ" value="0.7" /> <referenceRange> <observationRange> <text>0.0-1.0</text> </observationRange> </referenceRange> </ observation> </component> <component> < observation moodCode="EVN" classCode="OBS"> < templateId root="2.16.840.1.208301.10.20.22.4.2" /> < id nullFlavor="NA"/> <code codeSystem="local&quot ; code="ALKP" displayName="ALKALINE PHOSPHATASE TOTAL" /&gt ; <statusCode code="completed" /> < effectiveTime value="321271298163" /> <value unit=&quot ;IU/L" xsi:type="PQ" value="81" /> < referenceRange> <observationRange> <text> 45-117</text> </observationRange> </ referenceRange> </observation> </component> </ organizer> </entry> <entry> <organizer moodCode="EVN " classCode="BATTERY"> <templateId root=" 2.16.840.1.107386.10.20.22.4.1" /> <id nullFlavor="NA&quot ; /> <code codeSystem="local" code="PROTCSF" displayName="CSF TOTAL PROTEIN" /> <statusCode code=" completed" /> <component> <observation moodCode=& quot;EVN" classCode="OBS"> <templateId root=" 2.16.840.1.955562.10.20.22.4.2" /> <id nullFlavor="NA& quot; /> <code codeSystem="local" code="PROTEINCSF " displayName="CSF TOTAL PROTEIN" /> <statusCode code="completed" /> <effectiveTime value=" " /> <value unit="mg/dL" xsi:type=& quot;PQ" value="46" /> <interpretationCode codeSystem="local" code="*" /> < referenceRange> <observationRange> <text>15- 45</text> </observationRange> </ referenceRange> </observation> </component> < component> <observation moodCode="EVN" classCode=" OBS"> <templateId root="2.16.840.1.336055.10.20.22.4.2& quot; /> <id nullFlavor="NA" /> <code codeSystem="local" code="COLORCSFX" displayName="CSF COLOR-CENTRIFUGED" /> <statusCode code="completed&quot ; /> <effectiveTime value="475903366199" /> <value unit="" xsi:type="PQ" value="COLORLESS&quot ; /> <referenceRange> <observationRange> <text>COLORLESS</text> </observationRange> </referenceRange> </observation> </component> </organizer> </entry> <entry> <organizer moodCode=& quot;EVN" classCode="BATTERY"> <templateId root=" 2.16.840.1.942861.10.20.22.4.1" /> <id nullFlavor="NA&quot ; /> <code codeSystem="local" code="GLUCSF" displayName="CSF GLUCOSE" /> <statusCode code=" completed" /> <component> <observation moodCode=& quot;EVN" classCode="OBS"> <templateId root=" 2.16.840.1.256978.10.20.22.4.2" /> <id nullFlavor="NA& quot; /> <code codeSystem="local" code="GLUCSF& quot; displayName="CSF GLUCOSE" /> <statusCode code=& quot;completed" /> <effectiveTime value="112019337023& quot; /> <value unit="mg/dL" xsi:type="PQ" value="113" /> <interpretationCode codeSystem=" local" code="*" /> <referenceRange> & lt;observationRange> <text>40-70</text> & lt;/observationRange> </referenceRange> </ observation> </component> </organizer> </entry> & lt;entry> <organizer moodCode="EVN" classCode="BATTERY& quot;> <templateId root="2.16.840.1.582717.10.20.22.4.1" /& gt; <id nullFlavor="NA" /> <code codeSystem=" local" code="CLCTCSF" displayName="CSF CELL CT/DIFF" /& gt; <statusCode code="completed" /> <component> <observation moodCode="EVN" classCode="OBS"> <templateId root="2.16.840.1.372775.10.20.22.4.2" /> <id nullFlavor="NA" /> <code codeSystem=& quot;local" code="APPCSF" displayName="CSF APPEARANCE" /> <statusCode code="completed" /> < effectiveTime value="183003675528" /> <value unit=&quot ;" xsi:type="PQ" value="CLEAR" /> <referenceRange > <observationRange> <text>CLEAR</text > </observationRange> </referenceRange> </observation> </component> <component> &lt ;observation moodCode="EVN" classCode="OBS"> &lt ;templateId root="2.16.840.1.449722.10.20.22.4.2" /> < id nullFlavor="NA" /> <code codeSystem="local&quot ; code="COLCSF" displayName="CSF COLOR" /> < statusCode code="completed" /> <effectiveTime value=& quot;231822472556" /> <value unit="" xsi:type=& quot;PQ" value="COLORLESS" /> <referenceRange> <observationRange> <text>COLORLESS</text > </observationRange> </referenceRange> </observation> </component> <component> & lt;observation moodCode="EVN" classCode="OBS"> & lt;templateId root="2.16.840.1.882249.10.20.22.4.2" /> &lt ;id nullFlavor="NA" /> <code codeSystem="local& quot; code="RBCCSF" displayName="CSF RBC" /> &lt ;statusCode code="completed" /> <effectiveTime value=" 317613079884" /> <value unit="#/cumm" xsi:type=& quot;PQ" value="168" /> <interpretationCode codeSystem="local" code="*" /> < referenceRange> <observationRange> <text> 0-5</text> </observationRange> </ referenceRange> </observation> </component> < component> <observation moodCode="EVN" classCode=" OBS"> <templateId root="2.16.840.1.452289.10.20.22.4.2& quot; /> <id nullFlavor="NA" /> <code codeSystem="local" code="TUBECSF" displayName="CSF TUBE #"/> <statusCode code="completed" /> <effectiveTime value="963659142887" /> <value unit="" xsi:type="PQ" value="#1" /> & lt;referenceRange> <observationRange> <text /> </observationRange> </referenceRange> </observation> </component> <component> & lt;observation moodCode="EVN" classCode="OBS"> & lt;templateId root="2.16.840.1.043484.10.20.22.4.2"/> < id nullFlavor="NA" /> <code codeSystem="local&quot ;code="VOLCSF" displayName="CSF VOLUME" /> < statusCode code="completed" /> <effectiveTime value=& quot;116319045050" /> <value unit="mL" xsi:type=& quot;PQ" value="4.0" /> <referenceRange> <observationRange> <text /> </ observationRange> </referenceRange> </observation&gt ; </component> <component> <observation moodCode ="EVN" classCode="OBS"> <templateId root=& quot;2.16.840.1.667133.10.20.22.4.2" /> <id nullFlavor=&quot ;NA" /> <code codeSystem="local" code="WBCCSF " displayName="CSF WBC" /> <statusCode code=" completed" /> <effectiveTime value="379310121817" /> <value unit="#/cumm" xsi:type="PQ" value=& quot;1" /> <referenceRange> < observationRange> <text>0-5</text> </ observationRange> </referenceRange> </observation&gt ; </component> </organizer> </entry> <entry> <organizer moodCode="EVN" classCode="BATTERY"> <templateId root="2.16.840.1.668996.10.20.22.4.1" /> < id nullFlavor="NA" /> <code codeSystem="local" code="CLCTCSF" displayName="CSF CELL CT/DIFF" /> &lt ;statusCode code="completed" /> <component> < observation moodCode="EVN" classCode="OBS"> < templateId root="2.16.840.1.376339.10.20.22.4.2" /> < id nullFlavor="NA" /> <code codeSystem="local&quot ; code="APPCSF" displayName="CSF APPEARANCE" /> <statusCode code="completed" /> <effectiveTime value ="966136455675" /> <value unit="" xsi:type=& quot;PQ" value="CLEAR" /> <referenceRange> <observationRange> <text>CLEAR</text> & lt;/observationRange> </referenceRange> </ observation> </component> <component> < observation moodCode="EVN" classCode="OBS"> < templateId root="2.16.840.1.525511.10.20.22.4.2" /> < id nullFlavor="NA" /> <code codeSystem="local&quot ; code="COLCSF" displayName="CSF COLOR" /><statusCode code="completed" /> <effectiveTime value=" 356634160614" /> <value unit="" xsi:type="PQ& quot; value="COLORLESS" /> <referenceRange> <observationRange> <text>COLORLESS</text> </observationRange> </referenceRange> </ observation> </component> <component> < observation moodCode="EVN" classCode="OBS"> < templateId root="2.16.840.1.389682.10.20.22.4.2" /> < id nullFlavor="NA" /> <code codeSystem="local&quot ; code="RBCCSF" displayName="CSF RBC" /> < statusCode code="completed" /> <effectiveTime value=& quot;611440754706" /> <value unit="#/cumm" xsi:type=" PQ" value="1" /> <referenceRange> & lt;observationRange> <text>0-5</text> </ observationRange> </referenceRange> </observation&gt ; </component> <component> <observation moodCode ="EVN" classCode="OBS"> <templateId root=& quot;2.16.840.1.712031.10.20.22.4.2" /> <id nullFlavor="NA&quot ; /> <code codeSystem="local" code="TUBECSF" displayName="CSF TUBE #" /> <statusCode code=" completed" /> <effectiveTime value="696560031770" /> <value unit="" xsi:type="PQ" value="# 4" /> <referenceRange> <observationRange> <text /> </observationRange> </ referenceRange> </observation> </component> < component> <observation moodCode="EVN" classCode="OBS& quot;> <templateId root="2.16.840.1.511760.10.20.22.4.2&quot ; /> <id nullFlavor="NA" /> <code codeSystem="local" code="VOLCSF" displayName="CSF VOLUME" /> <statusCode code="completed" /> <effectiveTime value="791349204938" /> <value unit="mL" xsi:type="PQ" value="4.0" /> <referenceRange> <observationRange><text /> </observationRange> </referenceRange> </ observation> </component> <component> < observation moodCode="EVN" classCode="OBS"> < templateId root="2.16.840.1.938071.10.20.22.4.2" /> < id nullFlavor="NA" /> <code codeSystem="local&quot ; code="WBCCSF" displayName="CSF WBC" /> < statusCode code="completed" /> <effectiveTime value=& quot;748736089508" /> <value unit="#/cumm" xsi: type="PQ" value="2" /> <referenceRange> <observationRange> <text>0-5</text>< /observationRange> </referenceRange> </observation& gt; </component> </organizer> </entry> <entry&gt ; <organizer moodCode="EVN" classCode="BATTERY"> <templateId root="2.16.840.1.656501.10.20.22.4.1" /> & lt;id nullFlavor="NA" /> <code codeSystem="local&quot ; code="GRAMCSF" displayName="GRAM STAIN" /> < statusCode code="completed" /> <component> < observation moodCode="EVN" classCode="OBS"> < templateId root="2.16.840.1.989524.10.20.22.4.2" /> <id nullFlavor="NA" /> <code codeSystem="local" code="MB" displayName="Microbiology" /> < statusCode code="completed" /> <effectiveTime value=& quot;751907949650" /> <value xsi:type="ST" value=& quot;<pre><b>GRAM STAIN - CSF CULTURE</b> See BelowGRAM STAIN( F) Rishi Date/Time: 01/24/2017 19:05 Radha Date/Time: 01/27/2017 09:18SOURCE: CEREBRAL SPINAL FLUIDSPEC DESC: GRAM STAINNO NEUTROPHILS SEENNO ORGANISMS [facility] [id number] [place] [id number] BelowCSF CULTURE(F) Rishi Date/ Time: 01/24/2017 19:05 Radha Date/Time: 01/27/2017 09:18SOURCE: CEREBRAL SPINAL FLUIDSPEC DESC: NG3NO [facility] [place] [address]</pre>" /> & lt;referenceRange> <observationRange> <text /> </observationRange> </referenceRange> </observation> </component> </organizer> </ entry> <entry> <organizer moodCode="EVN" classCode=& quot;BATTERY"> <templateId root=" 2.16.840.1.813661.10.20.22.4.1" /> <id nullFlavor="NA&quot ; /> <code codeSystem="local" code="CBCD" displayName="CBC W/DIFF" /> <statusCode code=" completed" /> <component> <observation moodCode=& quot;EVN" classCode="OBS"> <templateId root=" 2.16.840.1.511392.10.20.22.4.2" /> <id nullFlavor="NA& quot; /> <code codeSystem="local" code="EO#" displayName="EOSINOPHIL #" /> <statusCode code=" completed" /> <effectiveTime value="448310205692" /> <value unit="k/cumm" xsi:type="PQ" value=& quot;0.1" /> <referenceRange> < observationRange> <text>0.1-0.5</text> & lt;/observationRange> </referenceRange></observation> </component> <component> <observation moodCode=& quot;EVN" classCode="OBS"> <templateId root=" [id number]" /> <id nullFlavor="NA& quot; /> <code codeSystem="local" code="EO&#37 ;" displayName="EOSINOPHIL %" /> <statusCode code="completed" /> <effectiveTime value=" [id number]" /> <value unit="%" xsi:type= "PQ" value="1" /> <interpretationCode codeSystem="local" code="*" /> <referenceRange> <observationRange> <text>2-4</text> </observationRange> </referenceRange> &lt ;/observation> </component> <component> < observation moodCode="EVN" classCode="OBS"> < templateId root="[id number]" /> < id nullFlavor="NA" /> <code codeSystem="local&quot ; code="GR#" displayName="GRANULOCYTE #" /> < statusCode code="completed" /> <effectiveTime value=& quot;096994361398" /> <value unit="k/cumm" xsi: type="PQ" value="5.2" /> <referenceRange> <observationRange> <text>2.0-9.0</text& gt; </observationRange> </referenceRange> </observation> </component> <component> &lt ;observation moodCode="EVN" classCode="OBS"> &lt ;templateId root="2.16.840.1.583334.10.20.22.4.2" /> < id nullFlavor="NA" /> <code codeSystem="local&quot ; code="GR%" displayName="GRANULOCYTE %" /& gt; <statusCode code="completed" /> < effectiveTime value="019885341388" /> <value unit=&quot ;%" xsi:type="PQ" value="70" /> &lt ;referenceRange> <observationRange> <text&gt ;50-75</text> </observationRange> </ referenceRange> </observation> </component> < component> <observation moodCode="EVN" classCode=" OBS"> <templateId root="2.16.840.1.096238.10.20.22.4.2& quot; /> <idnullFlavor="NA" /> <code codeSystem="local" code="LY#" displayName="LYMPHOCYTE # " /> <statusCode code="completed" /> < effectiveTime value="176566417333" /> <value unit=&quot ;k/cumm" xsi:type="PQ" value="1.7" /> < referenceRange> <observationRange> <text> 1.0-4.0</text> </observationRange> </ referenceRange> </observation> </component> < component> <observation moodCode="EVN" classCode=" OBS"> <templateId root="2.16.840.1.956375.10.20.22.4.2& quot; /> <id nullFlavor="NA" /> <code codeSystem="local" code="LY%" displayName=" LYMPHOCYTE %" /> <statusCode code="completed& quot; /> <effectiveTime value="878514518901" /> <value unit="%" xsi:type="PQ" value="24&quot ; /> <referenceRange> <observationRange> <text>20-30</text> </observationRange> </referenceRange> </observation> </component& gt; <component> <observation moodCode="EVN" classCode="OBS"> <templateId root=" 2.16.840.1.304867.10.20.22.4.2" /> <id nullFlavor="NA& quot; /> <code codeSystem="local" code="MCH" displayName="MEAN CELL HGB" /> <statusCode code=" completed" /> <effectiveTime value="005513672776" /> <value unit="pg" xsi:type="PQ" value=&quot ;27.5" /> <referenceRange> < observationRange> <text>27.0-33.0</text> </observationRange> </referenceRange> </ observation> </component> <component> < observation moodCode="EVN" classCode="OBS"> < templateId root="2.16.840.1.277477.10.20.22.4.2" /> < id nullFlavor="NA" /> <code codeSystem="local" code= "MCHC" displayName="MEAN CELL HGB CONCENTRATION" /> <statusCode code="completed" /> <effectiveTime value="544432157857" /> <value unit="g/dL" xsi:type="PQ" value="33.1" /> <referenceRange > <observationRange> <text>32.0-37.0</ text> </observationRange> </referenceRange> </observation> </component> <component> <observation moodCode="EVN" classCode="OBS"> <templateId root="2.16.840.1.242619.10.20.22.4.2" /> <id nullFlavor="NA" /> <code codeSystem="local&quot ; code="MCV" displayName="MEAN CELL VOLUME" /> & lt;statusCode code="completed" /> <effectiveTime value= "543157168466" /> <value unit="fl" xsi:type=& quot;PQ" value="83.0" /> <referenceRange> <observationRange> <text>80.0-100.0</text&gt ; </observationRange> </referenceRange> & lt;/observation> </component> <component> < observationmoodCode="EVN" classCode="OBS"> < templateId root="2.16.840.1.273552.10.20.22.4.2" /> < id nullFlavor="NA" /> <code codeSystem="local&quot ; code="MO#" displayName="MONOCYTE #" /> < statusCode code="completed" /> <effectiveTime value=& quot;589955257757" /> <value unit="k/cumm" xsi: type="PQ" value="0.4" /> <referenceRange> <observationRange> <text>0.1-1.0</text& gt; </observationRange> </referenceRange> </observation> </component> <component> &lt ;observation moodCode="EVN" classCode="OBS"> &lt ;templateId root="2.16.840.1.708764.10.20.22.4.2" /> < id nullFlavor="NA" /> <code codeSystem="local&quot ; code="MO%" displayName="MONOCYTE %" /> <statusCode code="completed" /> < effectiveTime value="073762555644" /> <value unit=&quot ;%" xsi:type="PQ" value="5" /> < referenceRange> <observationRange> <text> 4-6</text> </observationRange> </ referenceRange> </observation> </component> < component> <observation moodCode="EVN" classCode=" OBS"> <templateId root="2.16.840.1.903029.10.20.22.4.2& quot; /> <id nullFlavor="NA" /> <code codeSystem="local" code="RBC" displayName="RED BLOOD CELL" /> <statusCode code="completed" /> <effectiveTime value="129987835763" /> <value unit="m/cumm" xsi:type="PQ" value="4.11" /> <referenceRange> <observationRange> & lt;text>4.00-6.00</text> </observationRange> </ referenceRange> </observation> </component> < component> <observation moodCode="EVN" classCode=" OBS"> <templateId root="2.16.840.1.664354.10.20.22.4.2& quot; /> <id nullFlavor="NA" /> <code codeSystem= "local" code="RDW" displayName="RED CELL DISTRIBUTION WIDTH" /> <statusCode code="completed" /> <effectiveTime value="516522712254" /> <value unit="%" xsi:type="PQ" value="14.5" /> <referenceRange> <observationRange> <text>11.0-15.6</text> </observationRange> </referenceRange> </observation> </component> <component> <observation moodCode="EVN" classCode=& quot;OBS"> <templateId root=" 2.16.840.1.409805.10.20.22.4.2" /> <id nullFlavor="NA" / > <code codeSystem="local" code="WBC" displayName="WHITE BLOOD CELL" /> <statusCode code=& quot;completed" /> <effectiveTime value="771709868383& quot; /> <value unit="k/cumm" xsi:type="PQ" value="7.4" /> <referenceRange> < observationRange> <text>5.0-10.0</text> & lt;/observationRange> </referenceRange> </ observation> </component> <component> < observation moodCode="EVN" classCode="OBS"> < templateId root="2.16.840.1.720471.10.20.22.4.2" /> < id nullFlavor="NA" /> <code codeSystem="local&quot ; code="HGBT" displayName="HEMOGLOBIN" /> < statusCode code="completed" /> <effectiveTime value=" 476245133512" /> <value unit="gm/dL"xsi:type=&quot ;PQ" value="11.3" /> <interpretationCode codeSystem="local" code="*" /> < referenceRange> <observationRange> <text> 12.0-16.0</text> </observationRange> </ referenceRange> </observation> </component> < component> <observation moodCode="EVN" classCode="OBS& quot;> <templateId root="2.16.840.1.330887.10.20.22.4.2&quot ; /> <id nullFlavor="NA" /> <code codeSystem="local" code="HCTT" displayName="HEMATOCRIT& quot; /> <statusCode code="completed" /> & lt;effectiveTime value="507967202252" /> <value unit=& quot;%" xsi:type="PQ" value="34.1" /> <interpretationCode codeSystem="local" code="*" /&gt ; <referenceRange> <observationRange> <text>37.0-47.0</text> </observationRange> </referenceRange> </observation> </component> <component> <observation moodCode="EVN" classCode=& quot;OBS"> <templateId root=" 2.16.840.1.731936.10.20.22.4.2" /> <id nullFlavor="NA& quot; /> <code codeSystem="local" code="PLTT&quot ; displayName="PLATELET COUNT" /> <statusCode code=& quot;completed" /> <effectiveTime value="219797466073& quot; /> <value unit="k/cumm" xsi:type="PQ" value="148" /> <interpretationCode codeSystem="local& quot; code="*" /> <referenceRange> < observationRange> <text>150-450</text> </ observationRange> </referenceRange> </observation&gt ; </component> </organizer> </entry> <entry> <organizer moodCode="EVN" classCode="BATTERY"> <templateId root="2.16.840.1.831130.10.20.22.4.1" /> < id nullFlavor="NA" /> <code codeSystem="local" code="METABC" displayName="METABOLIC PANEL, COMPREHN" /> <statusCode code="completed" /> <component> <observation moodCode="EVN" classCode="OBS"> <templateId root="2.16.840.1.463047.10.20.22.4.2" /> <id nullFlavor="NA" /> <code codeSystem=" local" code="K" displayName="POTASSIUM" /> <statusCode code="completed" /> <effectiveTime value ="923994302466" /> <value unit="mmol/L" xsi: type="PQ" value="4.5" /> <referenceRange> <observationRange> <text>3.5-5.3</text& gt; </observationRange> </referenceRange> </ observation> </component> <component> < observation moodCode="EVN" classCode="OBS"> < templateId root="2.16.840.1.068230.10.20.22.4.2" /> < id nullFlavor="NA" /> <code codeSystem="local&quot ; code="eGFR" displayName="EST GFR (MDRD)" /> & lt;statusCode code="completed"/> <effectiveTime value=& quot;306353564173" /> <value unit="mL/min" xsi: type="PQ" value="40" /> <interpretationCode codeSystem="local" code="*" /> < referenceRange> <observationRange> <text> > 59</text> </observationRange> </ referenceRange> </observation> </component> < component> <observation moodCode="EVN" classCode=" OBS"> <templateId root="2.16.840.1.582595.10..22.4.2& quot; /> <id nullFlavor="NA" /> <code codeSystem="local" code="GAP" displayName="ANION GAP& quot; /> <statusCode code="completed" /> & lt;effectiveTimevalue="243067261531" /> <value unit=& quot;mmol/L" xsi:type="PQ" value="14" /> & lt;referenceRange> <observationRange> <text>5 -15</text> </observationRange> </ referenceRange> </observation> </component> < component> <observation moodCode="EVN" classCode=" OBS"> <templateId root="2.16.840.1.583668.10..22.4.2& quot; /> <id nullFlavor="NA" /> <code codeSystem="local" code="eCrCl" displayName="EST CrCl ( CG)" /> <statusCode code="completed" /> & lt;effectiveTime value="786440192940" /> <value unit=& quot;mL/min" xsi:type="PQ" value="44" /> & lt;interpretationCode codeSystem="local" code="*" /> <referenceRange> <observationRange> <text >> 59</text> </observationRange> </ referenceRange> </observation> </component> < component> <observation moodCode="EVN" classCode=" OBS"> <templateId root="2.16.840.1.850270.10.20.22.4.2& quot; /> <id nullFlavor="NA" /> <code codeSystem="local" code="GLU" displayName="GLUCOSE&quot ; /> <statusCode code="completed" /> < effectiveTime value="993542705193" /> <value unit=&quot ;mg/dL" xsi:type="PQ" value="317" /> < interpretationCode codeSystem="local" code="*" /> <referenceRange> <observationRange> <text> 70-99</text> </observationRange> </ referenceRange> </observation> </component> < component> <observation moodCode="EVN" classCode=" OBS"> <templateId root="2.16.840.1.966206.10.20.22.4.2" /& gt; <id nullFlavor="NA" /> <code codeSystem ="local" code="CA" displayName="CALCIUM" /> <statusCode code="completed" /> < effectiveTime value="411207380090" /> <value unit=&quot ;mg/dL" xsi:type="PQ" value="9.3" /> < referenceRange> <observationRange> <text> 8.5-10.1</text> </observationRange> </ referenceRange> </observation> </component> < component> <observation moodCode="EVN" classCode=" OBS"> <templateId root="2.16.840.1.563054.10.20.22.4.2& quot; /> <id nullFlavor="NA" /> <code codeSystem="local" code="BUN" displayName="BLOOD UREA NITROGEN" /> <statusCode code="completed" /> <effectiveTime value="291724709836" /> < value unit="mg/dL" xsi:type="PQ" value="25" /> <interpretationCode codeSystem="local" code="*&quot ; /> <referenceRange> <observationRange> <text>7-20</text> </observationRange> </referenceRange> </observation> </component& gt; <component> <observation moodCode="EVN" classCode="OBS"> <templateId root=" 2.16.840.1.923513.10.20.22.4.2" /> <id nullFlavor="NA& quot; /> <code codeSystem="local" code="CREAT&quot ; displayName="CREATININE" /> <statusCode code=" completed" /> <effectiveTime value="451877271415" /> <value unit="mg/dL" xsi:type="PQ" value="1.3& quot; /> <interpretationCode codeSystem="local" code=& quot;*" /> <referenceRange> < observationRange> <text>0.6-1.0</text> & lt;/observationRange> </referenceRange> </ observation> </component> <component> < observation moodCode="EVN" classCode="OBS"> < templateId root="2.16.840.1.743709.10.20.22.4.2" /> < id nullFlavor="NA" /> <code codeSystem="local&quot ; code="NA" displayName="SODIUM" /> < statusCode code="completed" /> <effectiveTime value=& quot;300241571533" /> <value unit="mmol/L" xsi: type="PQ" value="137" /> <referenceRange> <observationRange> <text>135-148</text& gt; </observationRange> </referenceRange> < /observation> </component> <component> < observation moodCode="EVN" classCode="OBS"> < templateId root="2.16.840.1.775247.10.20.22.4.2" /> < id nullFlavor="NA" /> <code codeSystem="local&quot ; code="CL" displayName="CHLORIDE" /> < statusCode code="completed" /> <effectiveTime value=& quot;043487678825" /> <value unit="mmol/L" xsi: type="PQ" value="104" /> <referenceRange> <observationRange> <text>98-110</text> </observationRange> </referenceRange> </ observation> </component> <component> < observation moodCode="EVN" classCode="OBS"> < templateId root="2.16.840.1.394918.10.20.22.4.2" /> < id nullFlavor="NA" /> <code codeSystem="local&quot ; code="AST" displayName="AST/SGOT" /> < statusCode code="completed" /> <effectiveTime value=& quot;289327360690" /> <value unit="Units/L" xsi: type="PQ" value="13" /> <referenceRange> <observationRange> <text>10-37</text> </observationRange> </referenceRange> & lt;/observation> </component> <component> < observation moodCode="EVN" classCode="OBS"> < templateId root="2.16.840.1.661629.10.20.22.4.2" /> < id nullFlavor="NA" /> <code codeSystem="local&quot ; code="ALT" displayName="ALT/SGPT" /> < statusCode code="completed" /> <effectiveTime value=& quot;164577674164" /> <value unit="Units/L" xsi: type="PQ" value="18" /> <referenceRange> <observationRange> <text>< 66</ text> </observationRange> </referenceRange> & lt;/observation> </component> <component> < observation moodCode="EVN" classCode="OBS"> < templateId root="2.16.840.1.267010.10.20.22.4.2" /> <id nullFlavor="NA" /> <code codeSystem="local" code="CO2" displayName="CARBON DIOXIDE" /> < statusCode code="completed" /> <effectiveTime value=& quot;415033022496" /> <value unit="mmol/L" xsi: type="PQ" value="19" /> <interpretationCode codeSystem="local" code="*" /> < referenceRange> <observationRange> <text> 21-32</text> </observationRange> </referenceRange > </observation> </component> <component> <observation moodCode="EVN" classCode="OBS"> <templateId root="2.16.840.1.015030.10.20.22.4.2" /> <id nullFlavor="NA"/> <code codeSystem=&quot ;local" code="TP" displayName="TOTAL PROTEIN" /> <statusCode code="completed" /> < effectiveTime value="625395390321" /> <value unit=&quot ;gm/dL" xsi:type="PQ" value="6.7" /> < referenceRange> <observationRange> <text>6.4- 8.2</text> </observationRange> </ referenceRange> </observation> </component> < component> <observation moodCode="EVN" classCode=" OBS"> <templateId root="2.16.840.1.979612.10.20.22.4.2& quot; /> <id nullFlavor="NA" /> <code codeSystem="local" code="ALB" displayName="ALBUMIN&quot ; /> <statusCode code="completed" /> < effectiveTime value="620332402778" /> <value unit=&quot ;gm/dL" xsi:type="PQ" value="3.3" /> < interpretationCode codeSystem="local" code="*" /> <referenceRange> <observationRange> < text>3.4-5.0</text> </observationRange> </ referenceRange> </observation> </component> < component> <observation moodCode="EVN" classCode=" OBS"> <templateId root="2.16.840.1.489491.10.20.22.4.2& quot; /> <id nullFlavor="NA" /> <code codeSystem="local" code="BILTOT" displayName="BILI TOTAL" /> <statusCode code="completed" /> <effectiveTime value="432128663621" /> <value unit="mg/dL" xsi:type="PQ" value="0.6" /> <referenceRange> <observationRange> &lt ;text>0.0-1.0</text> </observationRange> < /referenceRange> </observation> </component> &lt ;component> <observation moodCode="EVN" classCode=" OBS"> <templateId root="2.16.840.1.042449.10.20.22.4.2& quot; /> <id nullFlavor="NA" /> <code codeSystem="local" code="ALKP" displayName="ALKALINE PHOSPHATASE TOTAL" /> <statusCode code="completed&quot ; /> <effectiveTime value="458801999046" /> <value unit="IU/L" xsi:type="PQ" value="92" / > <referenceRange> <observationRange> <text>45-117</text> </observationRange> </referenceRange> </observation> </component> </organizer> </entry> <entry> <organizer moodCode=& quot;EVN" classCode="BATTERY"> <templateId root=" 2.16.840.1.195505.10.20.22.4.1" /> <id nullFlavor="NA" /> <code codeSystem="local" code="TROPI" displayName="TROPONIN I" /> <statusCode code=" completed" /> <component> <observation moodCode=& quot;EVN" classCode="OBS"> <templateId root=" 2.16.840.1.255506.10..22.4.2" /> <id nullFlavor="NA& quot; /> <code codeSystem="local" code="TROPI&quot ; displayName="TROPONIN I" /> <statusCode code=" completed" /> <effectiveTime value="003810230842" /> <value unit="ng/mL" xsi:type="PQ" value="& amp;lt; 0.02" /> <referenceRange> <observationRange& gt; <text>< 0.07</text> </ observationRange> </referenceRange> </observation&gt ; </component> </organizer> </entry> <entry> <organizer moodCode="EVN" classCode="BATTERY"> & lt;templateId root="2.16.840.1.704420.10.20.22.4.1" /> <id nullFlavor="NA" /> <code codeSystem="local" code= "POCGM" displayName="GLUCOSE, METER" /> < statusCode code="completed"/> <component> < observation moodCode="EVN" classCode="OBS"> < templateId root="2.16.840.1.089753.10.20.22.4.2" /> < id nullFlavor="NA" /> <code codeSystem="local&quot ; code="POCGM"displayName="GLUCOSE, METER" /> & lt;statusCode code="completed" /> <effectiveTime value= "054014316904" /> <value unit="" xsi:type=& quot;PQ" value="548" /> <interpretationCode codeSystem="local" code="" /> < referenceRange> <observationRange> <text> 65-99</text> </observationRange> </ referenceRange> </observation> </component> </ organizer> </entry> <entry> <organizer moodCode="EVN " classCode="BATTERY"> <templateId root=" 2.16.840.1.540852.10.20.22.4.1" /> <id nullFlavor="NA&quot ; /> <code codeSystem="local" code="CBC" displayName="CBCWITH PLATELET AND DIFFERENTIAL" /> < statusCode code="completed" /><component> < observation moodCode="EVN" classCode="OBS"> < templateId root="2.16.840.1.210416.10.20.22.4.2" /> < id nullFlavor="NA" /> <code codeSystem="local&quot ; code="SEGR" displayName="SEGS" /> < statusCode code="completed" /> <effectiveTime value=& quot;819487158823" /> <value unit="%" xsi: type="PQ" value="58.1" /> <referenceRange&gt ; <observationRange> <text>NRG</text> </observationRange> </referenceRange> & lt;/observation> </component> <component>< observation moodCode="EVN" classCode="OBS"> < templateId root="2.16.840.1.288760.10.20.22.4.2" /> < id nullFlavor="NA" /> <code codeSystem="local" code ="BASOR" displayName="*BASOPHILS" /> < statusCode code="completed" /> <effectiveTime value=& quot;559804200269" /> <value unit="%" xsi: type="PQ" value="1.1" /> <referenceRange> <observationRange> <text>NRG</text> & lt;/observationRange> </referenceRange> </observation > </component> <component> <observation moodCode="EVN" classCode="OBS"> <templateId root="2.16.840.1.942517.10.20.22.4.2" /> <id nullFlavor ="NA" /> <code codeSystem="local" code=" EOSR" displayName="*EOSINOPHILS" /> <statusCode code="completed" /> <effectiveTime value=" 568906782592" /> <value unit="%" xsi:type= "PQ" value="2.8" /> <referenceRange> <observationRange> <text>NRG</text> </observationRange> </referenceRange> </ observation> </component> <component> < observation moodCode="EVN" classCode="OBS"> < templateId root="2.16.840.1.370454.10.20.22.4.2" /> < id nullFlavor="NA" /> <code codeSystem="local&quot ; code="ADIFP" displayName="AUTOMATED DIFF" /> & lt;statusCode code="completed" /> <effectiveTime value= "931244612802" /> <value unit="" xsi:type="PQ& quot; value="PERFORMED" /> <referenceRange> <observationRange> <text>NRG</text> < /observationRange> </referenceRange> </observation& gt; </component> <component> <observation moodCode="EVN" classCode="OBS"> <templateId root="2.16.840.1.941042.10.20.22.4.2" /> <id nullFlavor=" NA" /> <code codeSystem="local" code="LYMPR& quot; displayName="*LYMPHOCYTES" /> <statusCode code=& quot;completed" /> <effectiveTime value="768849445957& quot; /> <value unit="%" xsi:type="PQ&quot ; value="30.6" /> <referenceRange> < observationRange> <text>NRG</text> </ observationRange> </referenceRange> </observation&gt ; </component> <component> <observation moodCode= "EVN" classCode="OBS"> <templateId root=" 2.16.840.1.721276.10.20.22.4.2" /> <id nullFlavor="NA& quot; /> <code codeSystem="local" code="MONOR&quot ; displayName="*MONOCYTES" /> <statusCode code=" completed" /><effectiveTime value="576165011712" /> <value unit="%"xsi:type="PQ" value=" 7.4" /> <referenceRange> <observationRange& gt; <text>NRG</text> </observationRange& gt; </referenceRange> </observation> </component > <component> <observation moodCode="EVN" classCode="OBS"> <templateId root=" 2.16.840.1.587473.10.20.22.4.2" /> <id nullFlavor="NA& quot;/> <code codeSystem="local" code="ABACT&quot ; displayName="*ABSOLUTE BASOPHILS" /> <statusCode code ="completed" /> <effectiveTime value="662624327982 " /> <value unit="10*3/uL" xsi:type="PQ&quot ; value="0.10" /> <referenceRange> < observationRange> <text>0.00-0.20</text> </observationRange> </referenceRange> </observation> </component> <component> <observation moodCode=& quot;EVN" classCode="OBS"> <templateIdroot=" 2.16.840.1.963460.10.20.22.4.2" /> <id nullFlavor="NA& quot; /> <code codeSystem="local" code="AEOCT&quot ; displayName="*ABSOLUTE EOSINOPHILS" /> <statusCode code="completed" /> <effectiveTime value=" 328482448313" /> <value unit="10*3/uL" xsi:type=& quot;PQ" value="0.20" /> <referenceRange> <observationRange> <text>0.00-0.50</text> </observationRange> </referenceRange> & lt;/observation> </component> <component> < observation moodCode="EVN" classCode="OBS"> < templateId root="2.16.840.1.779661.10.20.22.4.2" /> < id nullFlavor="NA" /> <code codeSystem="local" code="ALYCT" displayName="*ABSOLUTE LYMPHOCYTES" /> <statusCode code="completed" /> <effectiveTime value="270185413132" /> <value unit="10*3/uL&quot ; xsi:type="PQ" value="2.50" /> < referenceRange> <observationRange> <text> 1.00-3.00</text> </observationRange> </ referenceRange> </observation> </component> < component><observation moodCode="EVN" classCode="OBS"& gt; <templateId root="2.16.840.1.040916.10.20.22.4.2" /&gt ; <id nullFlavor="NA" /> <code codeSystem=" local" code="AMOCT" displayName="*ABSOLUTE MONOCYTES" / > <statusCode code="completed" /> < effectiveTime value="425713915746" /> <value unit=&quot ;10*3/uL" xsi:type="PQ" value="0.60" /> &lt ;referenceRange> <observationRange> <text> 0.30-1.00</text> </observationRange> </ referenceRange> </observation> </component> < component> <observation moodCode="EVN" classCode=" OBS"> <templateId root="2.16.840.1.845219.10.20.22.4.2& quot; /> <id nullFlavor="NA" /> <code codeSystem="local" code="ANECT" displayName="*ABSOLUTE NEUTROPHILS" /> <statusCode code="completed" /&gt ; <effectiveTime value="345946720737" /> < value unit="10*3/uL" xsi:type="PQ" value="4.80" /& gt; <referenceRange> <observationRange> & lt;text>1.80-7.80</text> </observationRange> </referenceRange> </observation> </component> <component> <observation moodCode="EVN" classCode=& quot;OBS"> <templateId root=" 2.16.840.1.393656.10.20.22.4.2" /> <id nullFlavor="NA& quot; /> <code codeSystem="local" code="MPV" displayName="MPV" /> <statusCode code="completed& quot; /> <effectiveTime value="796268837798" /> <value unit="fL" xsi:type="PQ" value="8.8&quot ; /> <referenceRange> <observationRange> <text>7.4-10.4</text> </observationRange> </referenceRange> </observation> </component& gt; <component> <observation moodCode="EVN" classCode="OBS"> <templateId root=" 2.16.840.1.546494.10.20.22.4.2" /> <id nullFlavor="NA& quot; /> <code codeSystem="local" code="PLT" displayName="PLATELETS" /> <statusCode code=" completed" /> <effectiveTime value="669883081463" /> <value unit="10*3/uL" xsi:type="PQ" value= "139" /> <interpretationCode codeSystem="local& quot; code="*" /> <referenceRange> < observationRange> <text>159-386</text> & lt;/observationRange> </referenceRange> </ observation> </component> <component> < observation moodCode="EVN" classCode="OBS"> < templateId root="[id number]" /> < id nullFlavor="NA" /> <code codeSystem="local&quot ; code="WBCIR" displayName="WBC" /> < statusCode code="completed" /> <effectiveTime value=& quot;[id number]" /> <value unit="10*3/uL" xsi: type="PQ" value="8.2" /> <referenceRange> <observationRange> <text>3.6-11.2</text& gt; </observationRange></referenceRange> </ observation> </component> <component> < observation moodCode="EVN" classCode="OBS"> < templateId root="[id number]" /> < id nullFlavor="NA" /> <code codeSystem="local&quot ; code="RBC" displayName="RBC" /> < statusCode code="completed" /> <effectiveTime value=& quot;433421957818" /> <value unit="" xsi:type=& quot;PQ" value="3.98" /> <referenceRange> <observationRange> <text>3.63-4.92</text> </observationRange> </referenceRange> </ observation> </component> <component> < observation moodCode="EVN" classCode="OBS"> < templateId root="2.16.840.1.755933.10.20.22.4.2" /> < id nullFlavor="NA" /> <code codeSystem="local&quot ; code="HGB" displayName="HEMOGLOBIN" /> < statusCode code="completed" /> <effectiveTime value=& quot;609177197211" /> <value unit="" xsi:type=" PQ" value="10.6" /> <interpretationCode codeSystem ="local" code="*" /> <referenceRange> <observationRange> <text>11.0-14.3</text&gt ; </observationRange> </referenceRange> & lt;/observation> </component> <component> < observation moodCode="EVN" classCode="OBS"> < templateId root="2.16.840.1.991260.10.20.22.4.2" /> < id nullFlavor="NA" /> <code codeSystem="local&quot ; code="HCT"displayName="HEMATOCRIT" /> < statusCode code="completed" /> <effectiveTime value=" 280720209526" /> <value unit="%" xsi:type= "PQ" value="32.4" /> <referenceRange> < observationRange> <text>31.2-41.9</text> </observationRange> </referenceRange> </ observation> </component> <component> < observation moodCode="EVN" classCode="OBS"> < templateId root="2.16.840.1.128703.10.20.22.4.2" /> < id nullFlavor="NA" /> <code codeSystem="local&quot ; code="MCV" displayName="MCV" /> < statusCode code="completed" /> <effectiveTime value=& quot;550351914004" /> <value unit="fL" xsi:type=& quot;PQ" value="81.3" /> <referenceRange> <observationRange> <text>79.0-98.0</text> </observationRange> </referenceRange> </ observation> </component> <component> < observation moodCode="EVN" classCode="OBS"> < templateId root="2.16.840.1.443962.10.20.22.4.2" /> < id nullFlavor="NA" /><code codeSystem="local" code=& quot;MCH" displayName="MCH" /> <statusCode code=" completed" /> <effectiveTime value="920632590505" /> <value unit="pg" xsi:type="PQ" value=&quot ;26.7" /> <interpretationCode codeSystem="local" code="*" /> <referenceRange> < observationRange> <text>27.0-33.0</text> </observationRange> </referenceRange> </ observation> </component> <component> < observation moodCode="EVN" classCode="OBS"> < templateId root="2.16.840.1.673284.10.20.22.4.2" /> < id nullFlavor="NA" /> <code codeSystem="local&quot ; code="MCHC" displayName="MCHC" /> < statusCode code="completed" /> <effectiveTime value=& quot;681563924001" /> <value unit="" xsi:type=& quot;PQ" value="32.9" /> <referenceRange> &lt ;observationRange> <text>32.0-36.0</text> </observationRange> </referenceRange> </ observation> </component> <component> < observation moodCode="EVN" classCode="OBS"> < templateId root="2.16.840.1.251165.10.20.22.4.2" /> < id nullFlavor="NA" /> <code codeSystem="local&quot ; code="RDW" displayName="RDW" /> < statusCode code="completed" /> <effectiveTime value=& quot;871844007543" /> <value unit="%" xsi: type="PQ" value="15.7" /> <referenceRange&gt ; <observationRange> <text>12.3-17.0</ text> </observationRange></referenceRange> < /observation> </component> <component> < observation moodCode="EVN" classCode="OBS"> < templateId root="2.16.840.1.843255.10.20.22.4.2" /> < id nullFlavor="NA" /> <code codeSystem="local&quot ; code="RDWSD" displayName="RDWSD" /> < statusCode code="completed" /> <effectiveTime value=& quot;250001694073" /> <value unit="" xsi:type=& quot;PQ" value="45.1" /> <referenceRange> <observationRange> <text>37.1-47.8</text> </observationRange> </referenceRange> </ observation> </component> </organizer> </entry> & lt;entry> <organizer moodCode="EVN" classCode="BATTERY& quot;> <templateId root="2.16.840.1.101649.10.20.22.4.1" /& gt; <id nullFlavor="NA" /> <code codeSystem=" local" code="VBG" displayName="VENOUS BLOOD GAS" /> <statusCode code="completed" /> <component> <observation moodCode="EVN" classCode="OBS"> <templateId root="2.16.840.1.401234.10.20.22.4.2" /> <id nullFlavor="NA" /> <code codeSystem=" local" code="VBE" displayName="*INGA. BASE EXCESS" /&gt ; <statusCode code="completed" /> < effectiveTime value="299712181550" /> <value unit=&quot ;" xsi:type="PQ" value="-7.7" /> < interpretationCode codeSystem="local" code="*" /> <referenceRange> <observationRange> < text>-3.0-3.0</text> </observationRange> < /referenceRange> </observation> </component> &lt ;component> <observation moodCode="EVN" classCode=" OBS"> <templateId root="2.16.840.1.690272.10.20.22.4.2& quot; /> <id nullFlavor="NA" /> <code codeSystem="local" code="VHCO3" displayName="INGA. BICARBONATE" /> <statusCode code="completed" /&gt ; <effectiveTime value="021930857558" /> < value unit="meq/L" xsi:type="PQ" value="17.3" /&gt ; <interpretationCode codeSystem="local" code="*&quot ; /> <referenceRange> <observationRange> <text>22.0-29.0</text> </observationRange> </referenceRange> </observation> </component& gt; <component> <observation moodCode="EVN" classCode="OBS"> <templateId root=" 2.16.840.1.353577.10.20.22.4.2" /> <id nullFlavor="NA& quot; /> <code codeSystem="local" code="VOSAT&quot ; displayName="INGA. O2 SATURATION" /> <statusCode code= "completed" /> <effectiveTime value="263241815251& quot; /> <value unit="%" xsi:type="PQ&quot ; value="96.8" /> <interpretationCode codeSystem=" local" code="*" /> <referenceRange> <observationRange> <text>70.0-80.0</text> </observationRange> </referenceRange> </ observation> </component> <component> < observation moodCode="EVN" classCode="OBS"> < templateId root="2.16.840.1.764242.10.20.22.4.2" /> < id nullFlavor="NA"/> <code codeSystem="local&quot ; code="VPCO2" displayName="VENOUSPCO2" /> < statusCode code="completed" /> <effectiveTimevalue=& quot;967701113786" /> <value unit="mm[Hg]" xsi: type="PQ" value="35.2" /> < interpretationCode codeSystem="local" code="*" /> <referenceRange> <observationRange> < text>38.0-50.0</text> </observationRange> &lt ;/referenceRange> </observation> </component> & lt;component> <observation moodCode="EVN" classCode=&quot ;OBS"> <templateId root="2.16.840.1.597640.10.20.22.4.2 " /> <id nullFlavor="NA" /> <code codeSystem="local" code="VPH" displayName="*VENOUS PH& quot; /> <statusCode code="completed" /> & lt;effectiveTime value="755505416219" /> <value unit=& quot;" xsi:type="PQ" value="7.312" /> < interpretationCode codeSystem="local" code="*" /> <referenceRange> <observationRange> < text>7.320-7.430</text> </observationRange> </ referenceRange> </observation> </component> < component> <observation moodCode="EVN" classCode=" OBS"> <templateId root="2.16.840.1.215291.10.20.22.4.2& quot; /> <id nullFlavor="NA" /> <code codeSystem="local" code="VPO2" displayName="*VENOUS PO2 " /> <statusCode code="completed" /> & lt;effectiveTime value="045781225359" /> <value unit=& quot;mm[Hg]" xsi:type="PQ" value="85" /> & lt;interpretationCode codeSystem="local" code="*" /> <referenceRange> <observationRange> & lt;text>38-42</text> </observationRange> </ referenceRange> </observation> </component> < component> <observation moodCode="EVN" classCode=" OBS"> <templateId root="2.16.840.1.836027.10.20.22.4.2& quot; /> <id nullFlavor="NA" /> <code codeSystem="local" code="VTCO2" displayName="*VENOUS TCO2" /> <statusCode code="completed" /> <effectiveTime value="928197568392" /> <value unit="" xsi:type="PQ" value="16.3" /> <interpretationCode codeSystem="local" code="*" /> <referenceRange> <observationRange> & lt;text>23.0-30.0</text> </observationRange> </referenceRange> </observation> </component> </ organizer> </entry> <entry> <organizer moodCode="EVN " classCode="BATTERY"> <templateId root=" 2.16.840.1.101597.10.20.22.4.1" /> <id nullFlavor="NA&quot ; /> <code codeSystem="local" code="KET" displayName="KETONE (B-HYDROXY) WB" /> <statusCode code=& quot;completed" /> <component> <observation moodCode="EVN" classCode="OBS"> <templateId root="2.16.840.1.683130.10.20.22.4.2" /> <id nullFlavor ="NA" /> <code codeSystem="local" code=" KET" displayName="KETONE (B-HYDROXY) WB" /> < statusCode code="completed" /> <effectiveTime value=& quot;209079457923" /> <value unit="mmol/L" xsi: type="PQ" value="<0.6" /> < referenceRange> <observationRange> <text>< 0.6</text> </observationRange> </ referenceRange> </observation> </component> </ organizer> </entry> <entry> <organizer moodCode="EVN " classCode="BATTERY"> <templateId root=" 2.16.840.1.035628.10.20.22.4.1" /> <id nullFlavor="NA&quot ; /> <code codeSystem="local" code="DKA" displayName="DKA CALCULATIONS" /> <statusCode code=" completed" /> <component><observation moodCode="EVN& quot; classCode="OBS"> <templateId root=" 2..840.1.364859.10..22.4.2" /> <id nullFlavor="NA& quot; /> <code codeSystem="local" code="NA" displayName="SODIUM" /> <statusCode code="completed& quot; /> <effectiveTime value="013868302353" /> <value unit="mmol/L" xsi:type="PQ" value="130& quot; /> <interpretationCode codeSystem="local" code=& quot;*" /> <referenceRange> <observationRange& gt; <text>136-145</text> </ observationRange> </referenceRange> </observation&gt ; </component> <component> <observation moodCode ="EVN" classCode="OBS"> <templateId root=& quot;2.16.840.1.652060.10.20.22.4.2" /> <id nullFlavor=&quot ;NA" /> <code codeSystem="local" code="BUN& quot; displayName="BUN" /> <statusCode code=" completed" /> <effectiveTime value="619451424959" /> <value unit="" xsi:type="PQ" value=" 37" /> <interpretationCode codeSystem="local" code ="*" /> <referenceRange> < observationRange> <text>7-18</text> </ observationRange> </referenceRange> </observation> </component> <component> <observation moodCode=& quot;EVN" classCode="OBS"> <templateId root=" 2.16.840.1.285054.10.20.22.4.2" /> <id nullFlavor="NA& quot; /> <code codeSystem="local" code="GLU" displayName="GLUCOSE" /> <statusCode code=" completed" /> <effectiveTime value="894013638241" /> <value unit="" xsi:type="PQ" value=" 616" /> <interpretationCode codeSystem="local" code="" /> <referenceRange> < observationRange> <text>65-99</text> < /observationRange> </referenceRange> </observation& gt; </component> <component> <observation moodCode="EVN" classCode="OBS"> <templateId root="2.16.840.1.558070.10.20.22.4.2" /> <id nullFlavor ="NA" /> <code codeSystem="local" code=" NACOR" displayName="SODIUM, CORRECTED" /> < statusCodecode="completed" /> <effectiveTime value=& quot;611523082653" /> <value unit="mmol/L" xsi:type=& quot;PQ" value="138" /> <referenceRange> <observationRange> <text>136-145</text> </observationRange> </referenceRange> </ observation> </component> <component> < observation moodCode="EVN" classCode="OBS"> < templateId root="2.16.840.1.681469.10.20.22.4.2" /> < id nullFlavor="NA" /> <code codeSystem="local&quot ; code="OSMOC" displayName="OSMOLALITY, CALCULATED" /> <statusCode code="completed" /> < effectiveTime value="107538577521" /> <value unit=&quot ;mosm/kg" xsi:type="PQ" value="307" /> < interpretationCode codeSystem="local" code="*" /> <referenceRange> <observationRange> < text>278-305</text> </observationRange> </ referenceRange> </observation> </component> </ organizer> </entry> <entry> <organizer moodCode="EVN " classCode="BATTERY"> <templateId root=" 2.16.840.1.318709.10.20.22.4.1" /> <id nullFlavor="NA&quot ; /> <code codeSystem="local" code="CMP" displayName="COMPREHENSIVE METABOLIC PANEL" /> <statusCode code="completed" /> <component> <observation moodCode="EVN" classCode="OBS"> <templateId root="2.16.840.1.387278.10.20.22.4.2" /> <id nullFlavor ="NA" /> <code codeSystem="local" code=" BILT" displayName="BILIFUBIN TOTAL" /> < statusCode code="completed" /> <effectiveTime value=& quot;046618002162" /> <value unit="" xsi:type=& quot;PQ" value="0.50" /> <referenceRange> <observationRange> <text>0.20-1.00</text> </observationRange> </referenceRange> & lt;/observation> </component> <component> < observation moodCode="EVN" classCode="OBS"> < templateId root="2.16.840.1.318522.10.20.22.4.2" /> < idnullFlavor="NA" /> <code codeSystem="local&quot ; code="TP" displayName="TOTAL PROTEIN" /> < statusCode code="completed" /> <effectiveTime value=" 744581926843" /> <value unit="" xsi:type="PQ& quot; value="6.4" /> <referenceRange> &lt ;observationRange> <text>6.4-8.2</text> & lt;/observationRange> </referenceRange> </observation& gt; </component> <component> <observation moodCode="EVN" classCode="OBS"> <templateId root="2.16.840.1.936330.10.20.22.4.2" /> <id nullFlavor ="NA" /> <code codeSystem="local" code=" ALB" displayName="ALBUMIN" /> <statusCode code=& quot;completed" /> <effectiveTime value="207269801047& quot; /> <value unit="" xsi:type="PQ" value=& quot;3.3" /> <interpretationCode codeSystem="local&quot ; code="*"/> <referenceRange> < observationRange> <text>3.4-5.0</text> & lt;/observationRange> </referenceRange> </ observation> </component> <component> < observation moodCode="EVN" classCode="OBS"> < templateId root="2.16.840.1.665663.10.20.22.4.2" /> < id nullFlavor="NA" /> <code codeSystem="local&quot ; code="GLOB" displayName="*GLOBULIN" /> < statusCode code="completed" /> <effectiveTime value=& quot;769001638743" /> <value unit="" xsi:type="PQ&quot ; value="3.1" /> <referenceRange> < observationRange> <text>2.3-3.5</text> </ observationRange> </referenceRange> </observation&gt ; </component> <component> <observation moodCode ="EVN" classCode="OBS"> <templateId root=& quot;2.16.840.1.639579.10.20.22.4.2" /><id nullFlavor="NA" /> <code codeSystem="local" code="AGR" displayName="*A/G RATIO" /> <statusCode code=" completed" /> <effectiveTime value="034336724015" /> <value unit="" xsi:type="PQ" value=" 1.1" /> <interpretationCode codeSystem="local" code="*" /> <referenceRange> < observationRange> <text>1.5-2.2</text> & lt;/observationRange> </referenceRange> </ observation> </component> <component> < observation moodCode="EVN" classCode="OBS"> < templateId root="2.16.840.1.517254.10.20.22.4.2" /> < id nullFlavor="NA" /> <code codeSystem="local" code="ALP" displayName="ALK PHOS" /> < statusCode code="completed" /> <effectiveTime value=& quot;952538188701" /> <value unit="U/L" xsi:type=& quot;PQ" value="92" /> <referenceRange> <observationRange> <text>46-116</text> </observationRange> </referenceRange> </ observation> </component> <component> < observation moodCode="EVN" classCode="OBS"> < templateId root="2.16.840.1.371420.10.20.22.4.2" /> < id nullFlavor="NA" /> <code codeSystem="local&quot ; code="ALT" displayName="ALT (SGPT)" /> < statusCode code="completed" /> <effectiveTime value=& quot;575722563538" /> <value unit="U/L" xsi:type=& quot;PQ" value="19" /> <referenceRange> <observationRange> <text>16-63</text> </observationRange> </referenceRange> </ observation> </component> <component> < observation moodCode="EVN" classCode="OBS"> < templateId root="2.16.840.1.873366.10.20.22.4.2" /> <id nullFlavor="NA" /> <code codeSystem="local" code="AST" displayName="AST (SGOT)" /> < statusCode code="completed" /> <effectiveTime value=& quot;461885574884" /> <value unit="U/L" xsi:type=& quot;PQ" value="19" /> <referenceRange> & lt;observationRange> <text>15-37</text> & lt;/observationRange> </referenceRange> </ observation> </component> </organizer> </entry> & lt;entry> <organizer moodCode="EVN" classCode="BATTERY& quot;> <templateId root="2.16.840.1.571354.10.20.22.4.1" /& gt; <id nullFlavor="NA" /> <code codeSystem="local& quot; code="MG" displayName="MAGNESIUM" /> < statusCode code="completed" /> <component> < observation moodCode="EVN" classCode="OBS"> < templateId root="2.16.840.1.621936.10.20.22.4.2" /> < id nullFlavor="NA" /> <code codeSystem="local&quot ; code="MG" displayName="MAGNESIUM" /> < statusCode code="completed" /> <effectiveTime value=& quot;926003888642" /> <value unit="" xsi:type=& quot;PQ" value="1.6" /> <interpretationCode codeSystem="local" code="*" /> < referenceRange> <observationRange> <text> 1.8-2.4</text> </observationRange> </ referenceRange> </observation> </component> </ organizer> </entry> <entry> <organizer moodCode="EVN " classCode="BATTERY"> <templateId root=" 2.16.840.1.406700.10.20.22.4.1" /> <id nullFlavor="NA&quot ; /> <code codeSystem="local" code="PHOS" displayName= "PHOSPHORUS" /> <statusCode code="completed" /&gt ; <component> <observation moodCode="EVN" classCode="OBS"> <templateId root=" 2.16.840.1.154362.10.20.22.4.2" /> <id nullFlavor="NA& quot; /> <code codeSystem="local" code="PHOS&quot ; displayName="PHOSPHORUS" /> <statusCode code=" completed" /> <effectiveTime value="368626524146" /> <value unit="" xsi:type="PQ" value=" 2.7" /> <referenceRange> <observationRange> <text>2.6-4.7</text> </observationRange&gt ; </referenceRange> </observation> </ component> </organizer> </entry> <entry> < organizer moodCode="EVN" classCode="BATTERY"> < templateId root="2.16.840.1.616248.10.20.22.4.1" /> <id nullFlavor="NA" /> <code codeSystem="local" code= "TROPI" displayName="TROPONIN-I" /> <statusCode code="completed" /> <component> <observation moodCode="EVN" classCode="OBS"> <templateId root="2.16.840.1.496276.10.20.22.4.2" /> <id nullFlavor ="NA" /> <code codeSystem="local" code=" TROPI" displayName="TROPONIN-I" /> <statusCode code="completed" /> <effectiveTime value=" 268032852373" /> <value unit="ng/mL" xsi:type=& quot;PQ" value="<0.017" /> <referenceRange& gt; <observationRange> <text>0.000-0.056< /text> </observationRange> </referenceRange> </observation> </component> </organizer> < /entry> <entry> <organizer moodCode="EVN" classCode=& quot;BATTERY"> <templateId root=" 2.16.840.1.489038.10.20.22.4.1" /> <id nullFlavor="NA&quot ; /> <code codeSystem="local" code="DRUGS" displayName="DRUG SCREEN PLASMA" /> <statusCode code=" completed" /> <component> <observation moodCode=& quot;EVN" classCode="OBS"> <templateId root=" 2.16.840.1.546861.10.20.22.4.2" /> <id nullFlavor="NA& quot; /> <code codeSystem="local" code="ALC" displayName="ALCOHOL" /> <statusCode code=" completed" /> <effectiveTime value="472759268576" /> <value unit="" xsi:type="PQ" value="& amp;lt;0.003" /> <referenceRange> < observationRange> <text>NRG</text> </ observationRange> </referenceRange> </observation&gt ; </component> <component> <observation moodCode ="EVN" classCode="OBS"> <templateId root=& quot;2..840.1.134798.10..22.4.2" /> <id nullFlavor="NA&quot ; /> <code codeSystem="local" code="ACTMN" displayName="ACETAMINOPHEN" /> <statusCode code=" completed" /> <effectiveTime value="619334656174" /> <value unit="" xsi:type="PQ" value="7 " /> <interpretationCode codeSystem="local" code=& quot;*" /> <referenceRange> < observationRange> <text>10-30</text> < /observationRange></referenceRange> </observation> & lt;/component> <component> <observation moodCode="EVN& quot; classCode="OBS"> <templateId root=" 2.16.840.1.086052.10.20.22.4.2" /> <id nullFlavor="NA& quot; /> <code codeSystem="local" code="MORIS" displayName="SALICYLATE" /> <statusCode code=" completed" /> <effectiveTime value="351312997449" /> <value unit="" xsi:type="PQ" value=" 1.2" /> <interpretationCode codeSystem="local" code="*" /> <referenceRange> < observationRange> <text>2.8-20.0</text> & lt;/observationRange> </referenceRange> </ observation> </component> </organizer> </entry> & lt;entry> <organizer moodCode="EVN" classCode="BATTERY& quot;> <templateId root="2.16.840.1.869522.10.20.22.4.1" /& gt; <id nullFlavor="NA" /> <code codeSystem=" local" code="GFRE" displayName="GFR ESTIMATION" /> <statusCode code="completed" /> <component> <observation moodCode="EVN" classCode="OBS"> <templateId root="2.16.840.1.139562.10.20.22.4.2" /> <id nullFlavor="NA" /> <code codeSystem=" local" code="GFRN" displayName="*GFR EST NON AFR CYMRO& quot; /> <statusCode code="completed" /> & lt;effectiveTime value="026500374765" /> <value unit=& quot;mL/min" xsi:type="PQ" value="29" /> & lt;referenceRange> <observationRange> <text& gt;NRG</text> </observationRange> </ referenceRange> </observation> </component> < component> <observation moodCode="EVN" classCode=" OBS"> <templateId root="2.16.840.1.558588.10.20.22.4.2& quot; /> <id nullFlavor="NA" /> <code codeSystem="local" code="GFRA" displayName="*GRFA EST AFR AMER" /> <statusCode code="completed" /> <effectiveTime value="771786426398" /> <value unit= "mL/min" xsi:type="PQ" value="33" /> & lt;referenceRange> <observationRange> <text& gt;NRG</text> </observationRange> </referenceRange > </observation> </component> </organizer> </entry> <entry> <organizer moodCode="EVN" classCode="BATTERY"> <templateId root=" 2.16.840.1.458228.10.20.22.4.1" /> <id nullFlavor="NA&quot ; /> <code codeSystem="local" code="IRONP" displayName="IRON PROFILE" /> <statusCode code=" completed" /> <component> <observation moodCode=& quot;EVN" classCode="OBS"> <templateId root=" 2.16.840.1.510367.10.20.22.4.2" /> <id nullFlavor="NA& quot; /> <code codeSystem="local" code="IRNSA&quot ; displayName="*PERCENT SATURATION" /> <statusCode code ="completed" /> <effectiveTime value="256288031865 " /> <value unit="%" xsi:type="PQ& quot; value="12" /> <interpretationCode codeSystem=& quot;local" code="*" /> <referenceRange> <observationRange> <text>20-55</text> </observationRange> </referenceRange> </ observation> </component> <component> < observation moodCode="EVN" classCode="OBS"> < templateId root="2.16.840.1.254760.10.20.22.4.2" /> < id nullFlavor="NA" /> <code codeSystem="local&quot ; code="IRN" displayName="IRON" /> < statusCode code="completed" /> <effectiveTime value=& quot;042863692965" /> <value unit="ug/dL" xsi:type ="PQ" value="41" /> <interpretationCode codeSystem="local" code="*" /> < referenceRange> <observationRange> <text>50-170</ text> </observationRange> </referenceRange> </observation> </component> </organizer> </ entry> <entry> <organizer moodCode="EVN" classCode=& quot;BATTERY"> <templateId root=" 2.16.840.1.660682.10.20.22.4.1" /> <id nullFlavor="NA&quot ; /> <code codeSystem="local" code="FERR" displayName="FERRITIN" /> <statusCode code="completed& quot; /> <component> <observationmoodCode="EVN&quot ; classCode="OBS"> <templateId root=" 2.16.840.1.589387.10.20.22.4.2" /> <id nullFlavor="NA& quot; /> <code codeSystem="local" code="FERR&quot ; displayName="FERRITIN" /> <statusCode code=" completed" /> <effectiveTime value="472879626629"/ > <value unit="ng/mL" xsi:type="PQ" value=& quot;55" /> <referenceRange> <observationRange > <text>13-150</text> </ observationRange> </referenceRange> </observation&gt ; </component> </organizer> </entry> <entry> <organizermoodCode="EVN" classCode="BATTERY"> <templateId root="2.16.840.1.585617.10.20.22.4.1" /> < id nullFlavor="NA" /> <code codeSystem="local" code="TSH" displayName="TSH" /> <statusCode code= "completed" /> <component> <observation moodCode="EVN" classCode="OBS"> <templateId root="2.16.840.1.449161.10.20.22.4.2" /> <id nullFlavor ="NA" /> <code codeSystem="local" code=" TSH" displayName="TSH" /> <statusCode code=" completed" /> <effectiveTime value="964957545195" /> <value unit="u[IU]/L" xsi:type="PQ" value= "1.636" /> <referenceRange> < observationRange> <text>0.340-4.820</text> </observationRange> </referenceRange> </ observation> </component> </organizer> </entry> & lt;entry> <organizer moodCode="EVN" classCode="BATTERY& quot;> <templateId root="2.16.840.1.275861.10.20.22.4.1"/& gt; <id nullFlavor="NA" /> <code codeSystem=" local" code="B12FO" displayName="VITAMIN B12 & FOLATE" /> <statusCode code="completed" /> &lt ;component> <observation moodCode="EVN" classCode=" OBS"> <templateId root="2.16.840.1.800884.10.20.22.4.2& quot; /> <id nullFlavor="NA" /> <code codeSystem="local" code="B12" displayName="VITAMIN B12& quot; /> <statusCode code="completed" /> & lt;effectiveTime value="[id number]" /> <value unit=& quot;pg/mL" xsi:type="PQ" value="301" /> & lt;referenceRange> <observationRange> <text& gt;180-914</text> </observationRange> </ referenceRange> </observation> </component> </ organizer> </entry> <entry> <organizer moodCode="EVN "classCode="BATTERY"> <templateId root=" [id number]" /> <id nullFlavor="NA&quot ; /> <code codeSystem="local" code="UAPRN" displayName="URINALYSIS (CULTURE PRN)" /> <statusCode code= "completed" /> <component> <observation moodCode="EVN" classCode="OBS"> <templateId root="2.16.840.1.445031.10.20.22.4.2" /> <id nullFlavor= "NA" /> <code codeSystem="local" code=" NISH" displayName="*URINE APPEARANCE" /> < statusCode code="completed" /> <effectiveTime value=& quot;200613159708" /> <value unit="" xsi:type=& quot;PQ" value="CLEAR" /> <referenceRange> <observationRange> <text>CLEAR</text> </observationRange> </referenceRange> </ observation> </component> <component> < observation moodCode="EVN" classCode="OBS"> < templateId root="2.16.840.1.094251.10.20.22.4.2" /> < id nullFlavor="NA" /> <code codeSystem="local&quot ; code="UBIL" displayName="*URINE BILIRUBIN" /> <statusCode code="completed" /> <effectiveTime value= "040480086124" /> <value unit=""xsi:type=& quot;PQ" value="NEGATIVE" /> <referenceRange> <observationRange> <text>NEGATIVE</text& gt; </observationRange> </referenceRange> </observation> </component> <component> &lt ;observation moodCode="EVN" classCode="OBS">< templateId root="2.16.840.1.218197.10.20.22.4.2" /> < id nullFlavor="NA" /> <code codeSystem="local&quot ; code="UBLO" displayName="*URINE BLOOD" /> < statusCode code="completed" /> <effectiveTime value=& quot;934432120388" /> <value unit="" xsi:type=& quot;PQ" value="NEGATIVE" /> <referenceRange> <observationRange> <text>NEGATIVE</text& gt; </observationRange> </referenceRange> </observation> </component> <component> < observation moodCode="EVN" classCode="OBS"> < templateId root="2.16.840.1.439270.10.20.22.4.2" /> < id nullFlavor="NA" /> <code codeSystem="local" code="UGLU" displayName="*URINE GLUCOSE" /> < statusCode code="completed" /> <effectiveTime value=& quot;959089837671" /> <value unit="" xsi:type=& quot;PQ" value=">1000" /> < interpretationCode codeSystem="local" code="*" /> <referenceRange> <observationRange> < text>NEGATIVE</text> </observationRange> < /referenceRange> </observation> </component> < component> <observation moodCode="EVN" classCode=" OBS"> <templateId root="2.16.840.1.550784.10..22.4.2& quot; /> <id nullFlavor="NA" /> <code codeSystem="local" code="UKET" displayName="*URINE KETONES" /> <statusCode code="completed" /> <effectiveTime value="282917367623"/> <value unit="" xsi:type="PQ" value="NEGATIVE" /> <referenceRange> <observationRange> < text>NEGATIVE</text> </observationRange> < /referenceRange> </observation> </component> &lt ;component> <observation moodCode="EVN" classCode=" OBS"> <templateId root="2.16.840.1.919010.10.20.22.4.2& quot; /> <id nullFlavor="NA" /> <code codeSystem="local" code="ULEU" displayName="*URINE LEUKOCYTES" /> <statusCode code="completed" /> <effectiveTime value="549330911651" /> <value unit="" xsi:type="PQ" value="NEGATIVE" /> <referenceRange> <observationRange> &lt ;text>NEGATIVE</text> </observationRange> &lt ;/referenceRange> </observation> </component> < component> <observation moodCode="EVN" classCode=" OBS"> <templateId root="2.16.840.1.918619.10..22.4.2& quot; /> <id nullFlavor="NA" /> <code codeSystem="local" code="UPH" displayName="URINE PH& quot; /> <statusCode code="completed" /> & lt;effectiveTime value="638204016403" /> <value unit=& quot;" xsi:type="PQ" value="5.5" /> < referenceRange> <observationRange> <text>5.0-8.0& lt;/text> </observationRange> </referenceRange& gt; </observation> </component> <component> <observation moodCode="EVN" classCode="OBS"> <templateId root="2.16.840.1.178422.10.20.22.4.2" /> & lt;id nullFlavor="NA" /> <code codeSystem="local& quot; code="UPRO" displayName="*URINE PROTEIN" /> <statusCode code="completed" /> <effectiveTime value="976255783321" /> <value unit="" xsi: type="PQ" value="NEGATIVE" /> <referenceRange > <observationRange> <text>NEGATIVE</ text> </observationRange> </referenceRange> </observation> </component> <component> < observation moodCode="EVN" classCode="OBS"> < templateId root="2.16.840.1.969345.10.20.22.4.2" /> < id nullFlavor="NA" /> <code codeSystem="local&quot ; code="SGUR" displayName="URINE SPECIFIC GRAVITY" /> <statusCode code="completed" /> < effectiveTime value="102505289656" /> <value unit=&quot ;" xsi:type="PQ" value="1.010" /> < referenceRange> <observationRange> <text> <=1.005->=1.030</text> </observationRange> </referenceRange> </observation> </ component> <component> <observation moodCode="EVN& quot; classCode="OBS"> <templateId root=" 2.16.840.1.541414.10..22.4.2" /> <id nullFlavor="NA& quot; /> <code codeSystem="local" code="URO" displayName="*URINE UROBILINOGEN" /> <statusCode code=& quot;completed" /> <effectiveTime value="694537263843& quot; /> <value unit="" xsi:type="PQ" value=& quot;0.2" /> <referenceRange> < observationRange> <text>0.2-1.0</text> & lt;/observationRange> </referenceRange> </ observation> </component> <component> < observation moodCode="EVN" classCode="OBS"> < templateId root="2.16.840.1.785719.10..22.4.2" /> < id nullFlavor="NA" /> <code codeSystem="local" code="COLOR" displayName="*URINE COLOR" /> < statusCode code="completed" /> <effectiveTime value=& quot;693678287770" /> <value unit="" xsi:type=& quot;PQ" value="YELLOW" /> <referenceRange> <observationRange> <text>STRAW/YELL/DK YELL</text> </observationRange> </referenceRange> < /observation> </component> </organizer> </entry> <entry> <organizer moodCode="EVN" classCode="BATTERY& quot;> <templateId root="2.16.840.1.195674.10.20.22.4.1" /& gt; <id nullFlavor="NA" /> <code codeSystem=" local" code="UMIC" displayName="URINE MICROSCOPIC" /&gt ; <statusCode code="completed" /> <component> <observation moodCode="EVN" classCode="OBS"> <templateId root="2.16.840.1.225763.10.20.22.4.2" /> <id nullFlavor="NA" /> <code codeSystem="local& quot; code="WBCUR" displayName="WBC" /> < statusCode code="completed" /> <effectiveTime value=& quot;328729251628" /> <value unit="/[HPF]" xsi: type="PQ" value="1-5" /> <referenceRange> <observationRange> <text>0-5</text> </observationRange> </referenceRange> </ observation> </component> <component> < observation moodCode="EVN" classCode="OBS"> < templateId root="2.16.840.1.806039.10.20.22.4.2" /> < id nullFlavor="NA" /> <code codeSystem="local&quot ; code="RBCUR" displayName="RBC" /> < statusCode code="completed" /> <effectiveTime value=& quot;853932165930" /> <value unit="/[HPF]" xsi:type=" PQ" value="0-1" /> <referenceRange> <observationRange> <text>0-1</text> </ observationRange> </referenceRange> </observation&gt ; </component> <component> <observation moodCode ="EVN" classCode="OBS"> <templateId root=& quot;2.16.840.1.505683.10.20.22.4.2" /> <id nullFlavor="NA& quot; /> <code codeSystem="local" code="UMICP&quot ; displayName="MICROSCOPIC EXAM PERFORMED" /> < statusCode code="completed" /> <effectiveTime value=& quot;252223809598" /> <value unit="" xsi:type=& quot;PQ" value="PERFORMED" /> <referenceRange> <observationRange> <text>NRG</text> & lt;/observationRange> </referenceRange> </ observation> </component> <component> < observation moodCode="EVN" classCode="OBS"> < templateId root="2.16.840.1.972394.10.20.22.4.2" /> < id nullFlavor="NA" /> <code codeSystem="local&quot ; code="SQEP" displayName="SQUAMOUS EP. CELLS" /> <statusCode code="completed" /> <effectiveTime value="199317451020" /> <value unit="/[LPF]" xsi:type="PQ" value="FEW" /> <referenceRange& gt; <observationRange> <text>NEG-FEW</text& gt; </observationRange> </referenceRange> </observation> </component> <component> < observation moodCode="EVN" classCode="OBS"> < templateId root="2.16.840.1.341159.10..22.4.2" /> < id nullFlavor="NA" /> <code codeSystem="local&quot ; code="BACT" displayName="BACTERIA" /> < statusCode code="completed" /> <effectiveTime value=& quot;749955527561" /> <value unit="/[HPF]" xsi: type="PQ" value="MODERATE" /> < interpretationCode codeSystem="local" code="*" /> <referenceRange> <observationRange> < text>NEGATIVE</text> </observationRange> < /referenceRange> </observation> </component> </ organizer> </entry> <entry> <organizer moodCode="EVN " classCode="BATTERY"> <templateId root=" 2.16.840.1.871863.10.20.22.4.1" /> <id nullFlavor="NA&quot ; /> <code codeSystem="local" code="DRUGU" displayName="UR DRUGS OF ABUSE SCREEN" /> <statusCode code= "completed" /> <component> <observation moodCode="EVN" classCode="OBS"> <templateId root="2.16.840.1.163438.10.20.22.4.2" /> <id nullFlavor ="NA" /> <code codeSystem="local" code=" COCU" displayName="*COCAINE" /> <statusCode code=& quot;completed" /> <effectiveTime value="125445762186& quot; /> <value unit="ng/mL" xsi:type="PQ" value="NEGATIVE" /> <referenceRange> < observationRange> <text>NEG <150</text> </observationRange> </referenceRange> </ observation> </component> <component> < observation moodCode="EVN" classCode="OBS"> < templateId root="2.16.840.1.460083.10.20.22.4.2" /> < id nullFlavor="NA" /> <code codeSystem="local&quot ; code="BARU" displayName="*BARBITURATES" /> &lt ;statusCode code="completed" /> <effectiveTime value=& quot;861989809890" /> <value unit="ng/mL" xsi:type ="PQ"value="NEGATIVE" /> <referenceRange> <observationRange> <text>NEG <200< /text> </observationRange> </referenceRange> </observation> </component> <component> & lt;observation moodCode="EVN" classCode="OBS"> & lt;templateId root="2.16.840.1.620711.10.20.22.4.2" /> &lt ;id nullFlavor="NA" /> <code codeSystem="local&quot ; code="BNZU" displayName="*BENZODIAZEINE" /> & lt;statusCode code="completed" /> <effectiveTime value= "434493259307" /> <value unit="ng/mL" xsi: type="PQ" value="NEGATIVE" /> <referenceRange > <observationRange> <text>NEG <200&lt ;/text> </observationRange> </referenceRange&gt ; </observation> </component> <component> &lt ;observation moodCode="EVN" classCode="OBS"> &lt ;templateId root="2.16.840.1.560989.10..22.4.2" /> < id nullFlavor="NA" /> <code codeSystem="local" code="AMPU" displayName="*AMPHETAMINE" /> < statusCode code="completed" /> <effectiveTime value=& quot;730085518455" /> <value unit="ng/mL" xsi:type ="PQ" value="NEGATIVE" /> <referenceRange&gt ; <observationRange> <text>NEG <500</text& gt; </observationRange> </referenceRange> </observation> </component> <component> &lt ;observation moodCode="EVN" classCode="OBS"> &lt ;templateId root="2.16.840.1.445739.10..22.4.2" /> < id nullFlavor="NA" /><code codeSystem="local" code=& quot;THCU" displayName="*CANNABINOIDS" /> < statusCode code="completed" /> <effectiveTime value=& quot;468188088586" /> <value unit="" xsi:type=& quot;PQ" value="NEGATIVE" /> <referenceRange> <observationRange> <text>NEG <50</ text> </observationRange> </referenceRange> </observation> </component> <component> <observation moodCode="EVN" classCode="OBS"> <templateId root="2.16.840.1.464330.10.20.22.4.2" /> <id nullFlavor="NA" /> <code codeSystem=" local" code="MORPU" displayName="*OPIATES" /> <statusCode code="completed" /> <effectiveTime value="107926252330" /> <value unit="ng/mL" xsi:type="PQ" value="POSITIVE" /> < interpretationCode codeSystem="local" code="*" /> < referenceRange> <observationRange> <text> NEG <300</text> </observationRange> </ referenceRange> </observation> </component> < component> <observation moodCode="EVN" classCode=" OBS"> <templateId root="2.16.840.1.598317.10..22.4.2& quot; /> <id nullFlavor="NA" /> <code codeSystem="local" code="PCPU" displayName="*PCP" /> <statusCode code="completed" /> < effectiveTime value="336249919550" /> <valueunit=" ng/mL" xsi:type="PQ" value="NEGATIVE" /> & lt;referenceRange> <observationRange> <text& gt;NEG <25</text> </observationRange> </ referenceRange> </observation> </component> </ organizer> </entry> <entry> <organizer moodCode="EVN " classCode="BATTERY"> <templateId root=" 2.16.840.1.725132.10.20.22.4.1" /> <id nullFlavor="NA&quot ; /> <code codeSystem="local" code="CXURN" displayName="CULTURE URINE" /> <statusCode code=" completed" /> <component> <observation moodCode=& quot;EVN" classCode="OBS"> <templateId root=" 2.16.840.1.495107.10.20.22.4.2" /> <id nullFlavor="NA& quot; /> <code codeSystem="local" code="CXURN&quot ; displayName="CULTURE URINE" /> <statusCode code=&quot ;completed" /> <effectiveTime value="181278729462&quot ; /> <value unit="" xsi:type="PQ" value=&quot ;>100,000 cfu/ml~ESBL + organism isolated.~Use Infection Control Precautions." /> <interpretationCode codeSystem=" local" code="*" /> <referenceRange> <observationRange> <text>NRG</text> & lt;/observationRange> </referenceRange> </ observation> </component> </organizer> </entry> & lt;entry> <organizer moodCode="EVN" classCode="BATTERY& quot;> <templateId root="2.16.840.1.687134.10.20.22.4.1" /& gt; <id nullFlavor="NA" /> <code codeSystem=" local" code="ISOLATE1" displayName="ISOLATE1" /> <statusCode code="completed" /> <component> <observation moodCode="EVN" classCode="OBS"> <templateId root="2.16.840.1.311838.10.20.22.4.2" /> & lt;id nullFlavor="NA" /> <code codeSystem="local& quot; code="ORG" displayName="ORGANISM" /> < statusCode code="completed" /> <effectiveTime value=& quot;742022849741" /> <value unit="" xsi:type=& quot;PQ" value="Escherichia coli" /> < referenceRange> <observationRange> <text>NRG& lt;/text> </observationRange> </referenceRange& gt; </observation> </component> <component> <observation moodCode="EVN" classCode="OBS"> <templateId root="2.16.840.1.943469.10.20.22.4.2" /> <id nullFlavor="NA" /> <code codeSystem=&quot ;local" code="28-1" displayName="Ampicillin" /> < statusCode code="completed" /> <effectiveTime value=& quot;198872337732" /> <value unit="" xsi:type=& quot;PQ" value=">=32" /> <referenceRange&gt ; <observationRange> <text>NRG</text> </observationRange> </referenceRange> & lt;/observation> </component> <component> < observation moodCode="EVN" classCode="OBS"> < templateId root="2.16.840.1.453236.10.20.22.4.2" /> < id nullFlavor="NA" /> <code codeSystem="local&quot ; code="32-3" displayName="Ampicillin/sulbactam" /> <statusCode code="completed" /> <effectiveTime value="054029953098" /> <value unit="" xsi: type="PQ" value=">=32" /> <referenceRange& gt; <observationRange> <text>NRG</text&gt ; </observationRange> </referenceRange> & lt;/observation> </component> <component> < observation moodCode="EVN" classCode="OBS"> < templateId root="2.16.840.1.076194.10.20.22.4.2" /> < id nullFlavor="NA" /> <code codeSystem="local&quot ; code="76-0" displayName="Cefazolin" /> < statusCode code="completed" /> <effectiveTime value=& quot;948560545251" /> <value unit="" xsi:type=& quot;PQ" value=">=64" /> <referenceRange&gt ; <observationRange> <text>NRG</text> </observationRange> </referenceRange> & lt;/observation> </component> <component> < observation moodCode="EVN" classCode="OBS"> < templateId root="2.16.840.1.781926.10.20.22.4.2" /> < id nullFlavor="NA" /> <code codeSystem="local&quot ; code="6644-9"displayName="Cefepime" /> < statusCode code="completed" /> <effectiveTime value=" 017312569997" /> <value unit="" xsi:type="PQ& quot; value="=2" /> <referenceRange> < observationRange> <text>NRG</text> </ observationRange></referenceRange> </observation> &lt ;/component> <component> <observation moodCode="EVN& quot; classCode="OBS"> <templateId root=" 2.16.840.1.322089.10.20.22.4.2" /> <id nullFlavor="NA& quot; /> <code codeSystem="local" code="133-9&quot ; displayName="Ceftazidime" /> <statusCode code=" completed" /> <effectiveTime value="069944536600" /> <value unit="" xsi:type="PQ" value="& amp;lt;=1" /> <referenceRange> < observationRange> <text>NRG</text> </ observationRange> </referenceRange> </observation&gt ; </component> <component> <observation moodCode ="EVN" classCode="OBS"> <templateId root=& quot;2.16.840.1.851452.10.20.22.4.2" /> <id nullFlavor=&quot ;NA" /> <code codeSystem="local" code="141-2& quot; displayName="Ceftriaxone" /><statusCode code=" completed" /> <effectiveTime value="005298373329" /> <value unit="" xsi:type="PQ" value="= 32" /> <referenceRange> <observationRange&gt ; <text>NRG</text> </observationRange&gt ; </referenceRange> </observation> </ component> <component> <observation moodCode="EVN& quot; classCode="OBS"> <templateId root=" 2.16.840.1.094497.10.20.22.4.2"/> <id nullFlavor="NA& quot; /> <code codeSystem="local"code="20889-1& quot; displayName="Ertapenem" /> <statusCode code=&quot ;completed" /> <effectiveTime value="543451524104&quot ; /> <value unit="" xsi:type="PQ" value=&quot ;<=0.5" /> <referenceRange> < observationRange> <text>NRG</text> </ observationRange> </referenceRange> </observation&gt ; </component> <component> <observation moodCode ="EVN" classCode="OBS"> <templateId root=& quot;2.16.840.1.690287.10.20.22.4.2" /> <id nullFlavor=&quot ;NA" /> <code codeSystem="local" code="esbl& quot; displayName="ESBL" /> <statusCode code=" completed" /> <effectiveTime value="601861429495" /> <value unit="" xsi:type="PQ" value="Pos& quot; /> <referenceRange> <observationRange> <text>NRG</text> </observationRange> </referenceRange> </observation> </component> <component> <observation moodCode="EVN" classCode=& quot;OBS"> <templateIdroot=" 2.16.840.1.152545.10.20.22.4.2" /> <id nullFlavor="NA& quot; /> <code codeSystem="local" code="267-5&quot ; displayName="Gentamicin" /> <statusCode code=" completed" /> <effectiveTime value="944400276692" /> <value unit="" xsi:type="PQ" value="& amp;gt;=16" /> <referenceRange> < observationRange> <text>NRG</text> </ observationRange> </referenceRange> </observation&gt ; </component> <component> <observation moodCode ="EVN" classCode="OBS"> <templateId root=& quot;2.16.840.1.684547.10.20.22.4.2" /> <id nullFlavor=&quot ;NA" /> <code codeSystem="local" code="76929- 8" displayName="Levofloxacin" /> <statusCode code=" completed" /> <effectiveTime value="609244708271" /> <value unit="" xsi:type="PQ" value="& amp;gt;=8" /> <referenceRange> < observationRange> <text>NRG</text> </ observationRange> </referenceRange> </observation&gt ; </component> <component> <observation moodCode ="EVN" classCode="OBS"> <templateId root=& quot;2.16.840.1.847628.10.20.22.4.2" /> <id nullFlavor=&quot ;NA" /> <code codeSystem="local" code="6652-2 " displayName="Meropenem" /> <statusCode code=& quot;completed" /> <effectiveTime value="785809570729& quot; /> <value unit="" xsi:type="PQ" value="& amp;lt;=0.25" /> <referenceRange> <observationRange& gt; <text>NRG</text> </observationRange& gt; </referenceRange> </observation> </ component> <component> <observation moodCode="EVN& quot; classCode="OBS"> <templateId root=" 2.16.840.1.383482.10.20.22.4.2" /> <id nullFlavor="NA& quot; /> <code codeSystem="local" code="363-2&quot ; displayName="Nitrofurantoin" /> <statusCode code=& quot;completed" /> <effectiveTime value="307158352225& quot; /> <value unit="" xsi:type="PQ" value=& quot;<=16" /> <referenceRange> < observationRange> <text>NRG</text> </ observationRange> </referenceRange> </observation&gt ; </component> <component> <observation moodCode ="EVN" classCode="OBS"> <templateId root=& quot;2.16.840.1.295877.10.20.22.4.2" /> <id nullFlavor=&quot ;NA" /> <code codeSystem="local" code="412-7& quot;displayName="Piperacillin/tazobactam" /> < statusCode code="completed" /> <effectiveTime value=& quot;112952060195" /> <value unit="" xsi:type=& quot;PQ" value="=8" /> <referenceRange> < observationRange> <text>NRG</text> </ observationRange> </referenceRange> </observation&gt ; </component> <component> <observation moodCode ="EVN" classCode="OBS"> <templateId root=& quot;2.16.840.1.109597.10.20.22.4.2" /> <id nullFlavor=&quot ;NA" /> <code codeSystem="local" code="508-2& quot; displayName="Tobramycin" /> <statusCode code=& quot;completed" /> <effectiveTime value="082333570283& quot; /> <value unit="" xsi:type="PQ" value=& quot;=8" /> <referenceRange> < observationRange> <text>NRG</text> </ observationRange> </referenceRange> </observation&gt ; </component> <component> <observation moodCode ="EVN" classCode="OBS"> <templateId root=& quot;2.16.840.1.855333.10.20.22.4.2" /> <id nullFlavor=&quot ;NA" /> <code codeSystem="local" code="516-5& quot; displayName="Trimethoprim/Sulfa" /> <statusCode code="completed" /> <effectiveTime value=" 378982077053" /> <value unit="" xsi:type="PQ& quot; value=">=320" /> <referenceRange> <observationRange> <text>NRG</text> </ observationRange> </referenceRange> </observation> </component> <component> <observation moodCode= "EVN" classCode="OBS"> <templateId root=&quot ;2.16.840.1.235860.10.20.22.4.2" /> <id nullFlavor="NA& quot; /> <code codeSystem="local" code="44-8&quot ; displayName="Aztreonam" /> <statusCode code=" completed" /> <effectiveTime value="624870521834" /> <value unit="" xsi:type="PQ" value="= 4" /> <referenceRange> <observationRange&gt ; <text>NRG</text> </observationRange> </referenceRange> </observation> </component> </organizer> </entry> <entry> <organizer moodCode= "EVN" classCode="BATTERY"> <templateId root=&quot ;2.16.840.1.203653.10.20.22.4.1" /> <id nullFlavor="NA&quot ; /> <code codeSystem="local" code="POCGM" displayName="GLUCOSE, METER" /> <statusCode code=" completed" /> <component> <observation moodCode=& quot;EVN" classCode="OBS"> <templateId root=" 2.16.840.1.031882.10.20.22.4.2" /> <id nullFlavor="NA& quot; /> <code codeSystem="local" code="POCGM&quot ; displayName="GLUCOSE, METER" /> <statusCode code=& quot;completed" /> <effectiveTime value="816039055267& quot; /> <value unit="" xsi:type="PQ" value=& quot;420" /> <interpretationCode codeSystem="local&quot ; code="*" /> <referenceRange> <observationRange& gt; <text>65-99</text> </observationRange > </referenceRange> </observation> </ component> </organizer> </entry> <entry> < organizer moodCode="EVN" classCode="BATTERY"> < templateId root="2.16.840.1.627801.10.20.22.4.1" /> <id nullFlavor="NA" /> <code codeSystem="local" code= "POCGM"displayName="GLUCOSE, METER" /> < statusCode code="completed" /> <component> < observation moodCode="EVN" classCode="OBS"> < templateId root="2.16.840.1.164284.10.20.22.4.2" /> < id nullFlavor="NA" /> <code codeSystem="local&quot ; code="POCGM" displayName="GLUCOSE, METER" /> & lt;statusCode code="completed" /> <effectiveTime value=" 163676146985" /> <value unit="" xsi:type="PQ& quot; value="472" /> <interpretationCode codeSystem=& quot;local" code="*" /> <referenceRange> <observationRange> <text>65-99</text> </observationRange> </referenceRange> </ observation> </component> </organizer> </entry> & lt;entry> <organizer moodCode="EVN" classCode="BATTERY& quot;> <templateId root="2.16.840.1.560186.10.20.22.4.1" /& gt; <id nullFlavor="NA" /> <code codeSystem=" local" code="POCGM" displayName="GLUCOSE, METER" /> <statusCode code="completed" /> <component> <observation moodCode="EVN" classCode="OBS"> <templateId root="2.16.840.1.095299.10.20.22.4.2" /> <id nullFlavor="NA" /> <code codeSystem="local&quot ; code="POCGM" displayName="GLUCOSE, METER"/> & lt;statusCode code="completed" /> <effectiveTime value= "490119587073" /> <value unit="" xsi:type=& quot;PQ" value="385" /> <interpretationCode codeSystem="local" code="*" /> <referenceRange& gt; <observationRange> <text>65-99</text& gt; </observationRange> </referenceRange> </observation> </component> </organizer> </entry > <entry> <organizermoodCode="EVN" classCode=" BATTERY"> <templateId root="2.16.840.1.617521.10.20.22.4.1& quot; /> <id nullFlavor="NA" /> <code codeSystem ="local" code="POCGM" displayName="GLUCOSE, METER&quot ; /> <statusCode code="completed" /> <component& gt; <observation moodCode="EVN" classCode="OBS"&gt ; <templateId root="2.16.840.1.412945.10.20.22.4.2" /> <id nullFlavor="NA" /> <code codeSystem=& quot;local" code="POCGM" displayName="GLUCOSE, METER" / > <statusCodecode="completed" /> < effectiveTime value="543021608041" /> <value unit="& quot; xsi:type="PQ" value="213" /> < interpretationCode codeSystem="local" code="*" /> <referenceRange> <observationRange> < text>65-99</text> </observationRange> </ referenceRange> </observation> </component> </ organizer> </entry> <entry> <organizer moodCode="EVN " classCode="BATTERY"> <templateId root=" [id number]" /> <id nullFlavor="NA&quot ; /> <code codeSystem="local" code="POCGM" displayName="GLUCOSE, METER" /> <statusCode code=" completed" /> <component> <observation moodCode=& quot;EVN" classCode="OBS"> <templateId root=" [id number]" /> <id nullFlavor="NA& quot; /> <code codeSystem="local" code="POCGM&quot ; displayName="GLUCOSE, METER" /> <statusCode code=& quot;completed" /> <effectiveTime value="[id number]& quot; /> <value unit="" xsi:type="PQ" value=& quot;85" /> <referenceRange> < observationRange> <text>65-99</text> < /observationRange> </referenceRange> </observation& gt; </component> </organizer> </entry> <entry&gt ; <organizer moodCode="EVN" classCode="BATTERY"> <templateId root="2.16.840.1.710019.10.20.22.4.1" /> & lt;id nullFlavor="NA" /> <code codeSystem="local&quot ; code="POCGM" displayName="GLUCOSE, METER" /> < statusCode code="completed" /> <component> < observation moodCode="EVN" classCode="OBS"> < templateId root="2.16.840.1.467110.10.20.22.4.2" /> < id nullFlavor="NA" /> <code codeSystem="local&quot ; code="POCGM" displayName="GLUCOSE, METER" /> & lt;statusCode code="completed" /> <effectiveTime value= "451382787652" /> <value unit="" xsi:type=& quot;PQ" value="148" /> <interpretationCode codeSystem="local" code="*" /> < referenceRange> <observationRange> <text>65-99</ text> </observationRange> </referenceRange> </observation> </component> </organizer> </ entry> <entry> <organizer moodCode="EVN" classCode=& quot;BATTERY"> <templateId root=" 2.16.840.1.149816.10.20.22.4.1" /> <id nullFlavor="NA&quot ; /> <code codeSystem="local" code="POCGM" displayName="GLUCOSE, METER" /> <statusCode code=" completed" /> <component> <observation moodCode=& quot;EVN" classCode="OBS"> <templateId root=" 2.16.840.1.350548.10.20.22.4.2" /> <id nullFlavor="NA& quot; /> <code codeSystem="local" code="POCGM&quot ; displayName="GLUCOSE, METER" /> <statusCode code=& quot;completed" /> <effectiveTime value="225433205149& quot; /> <value unit="" xsi:type="PQ" value=& quot;149" /> <interpretationCode codeSystem="local&quot ; code="*" /> <referenceRange> < observationRange> <text>65-99</text> < /observationRange> </referenceRange> </observation& gt; </component> </organizer> </entry> <entry&gt ; <organizer moodCode="EVN" classCode="BATTERY"> <templateId root="2.16.840.1.668677.10.20.22.4.1" /> & lt;id nullFlavor="NA" /> <code codeSystem="local&quot ; code="POCGM" displayName="GLUCOSE, METER" /> < statusCodecode="completed" /> <component> < observation moodCode="EVN" classCode="OBS"> < templateId root="2.16.840.1.698202.10.20.22.4.2" /> < id nullFlavor="NA" /> <code codeSystem="local&quot ; code="POCGM" displayName="GLUCOSE, METER" /> & lt;statusCode code="completed" /> <effectiveTime value= "228674360343" /><value unit="" xsi:type="PQ&quot ; value="146" /> <interpretationCode codeSystem=" local" code="*" /> <referenceRange> < observationRange> <text>65-99</text> < /observationRange> </referenceRange> </observation& gt; </component> </organizer> </entry> <entry&gt ; <organizer moodCode="EVN" classCode="BATTERY"> <templateId root="2.16.840.1.302295.10.20.22.4.1" /> < id nullFlavor="NA" /> <code codeSystem="local" code="POCGM" displayName="GLUCOSE, METER" /> < statusCode code="completed" /> <component> < observation moodCode="EVN" classCode="OBS"> < templateId root="2.16.840.1.907391.10.20.22.4.2" /> < id nullFlavor="NA" /> <code codeSystem="local&quot ; code="POCGM" displayName="GLUCOSE, METER" /> & lt;statusCode code="completed" /> <effectiveTime value=& quot;712200477460" /> <value unit="" xsi:type=& quot;PQ" value="119" /> <interpretationCode codeSystem="local" code="*" /> < referenceRange> <observationRange> <text> 65-99</text> </observationRange> </ referenceRange> </observation> </component> </ organizer> </entry> <entry> <organizer moodCode="EVN " classCode="BATTERY"> <templateId root=" 2.16.840.1.956905.10.20.22.4.1" /> <id nullFlavor="NA&quot ; /> <code codeSystem="local" code="CBC" displayName="CBC WITH PLATELET AND DIFFERENTIAL" /> < statusCode code="completed" /> <component> < observation moodCode="EVN" classCode="OBS">< templateId root="2.16.840.1.573970.10.20.22.4.2" /> < id nullFlavor="NA" /> <code codeSystem="local&quot ; code="SEGR" displayName="SEGS" /> < statusCode code="completed" /> <effectiveTime value=& quot;318245728317" /> <value unit="%" xsi: type="PQ" value="59.2" /> <referenceRange&gt ; <observationRange> <text>NRG</text> </observationRange> </referenceRange> & lt;/observation> </component> <component> < observation moodCode="EVN" classCode="OBS"> < templateId root="2.16.840.1.726591.10.20.22.4.2" /> < id nullFlavor="NA" /><code codeSystem="local" code=& quot;BASOR" displayName="*BASOPHILS" /> < statusCode code="completed" /> <effectiveTime value=& quot;561563538605" /> <value unit="%" xsi: type="PQ" value="0.7" /> <referenceRange> <observationRange> <text>NRG</text> </observationRange> </referenceRange> </ observation> </component> <component> < observation moodCode="EVN" classCode="OBS"> < templateId root="2.16.840.1.102576.10..22.4.2" /> < id nullFlavor="NA" /> <code codeSystem="local&quot ; code="EOSR" displayName="*EOSINOPHILS" /> < statusCode code="completed" /> <effectiveTime value=& quot;038317652054" /> <value unit="%" xsi: type="PQ" value="2.8" /> <referenceRange> <observationRange> <text>NRG</text> </observationRange> </referenceRange> < /observation> </component> <component> < observation moodCode="EVN"classCode="OBS"> < templateId root="2.16.840.1.002392.10..22.4.2" /> < id nullFlavor="NA" /> <code codeSystem="local&quot ; code="ADIFP" displayName="AUTOMATED DIFF" /> & lt;statusCode code="completed" /> <effectiveTime value= "744095807573" /> <value unit="" xsi:type=& quot;PQ" value="PERFORMED" /> <referenceRange> <observationRange> <text>NRG</text> </observationRange> </referenceRange> </ observation> </component> <component> < observation moodCode="EVN" classCode="OBS"> < templateId root="2.16.840.1.163773.10.20.22.4.2" /> < id nullFlavor="NA" /> <code codeSystem="local&quot ; code="LYMPR" displayName="*LYMPHOCYTES" /> &lt ;statusCode code="completed" /> <effectiveTime value=& quot;975335033429" /> <value unit="%" xsi: type="PQ" value="30.8" /> <referenceRange&gt ; <observationRange> <text>NRG</text> </observationRange> </referenceRange> </ observation> </component> <component> < observation moodCode="EVN" classCode="OBS"> < templateId root="2.16.840.1.289024.10..22.4.2" /> < id nullFlavor="NA" /> <code codeSystem="local&quot ; code="MONOR" displayName="*MONOCYTES" /> < statusCode code="completed" /> <effectiveTime value=& quot;770001958400" /> <value unit="%" xsi: type="PQ" value="6.5" /> <referenceRange> <observationRange> <text>NRG</text> </observationRange> </referenceRange> </ observation> </component> <component> < observation moodCode="EVN" classCode="OBS"> < templateId root="2.16.840.1.980540.10.20.22.4.2" /> < id nullFlavor="NA" /> <code codeSystem="local&quot ; code="ABACT" displayName="*ABSOLUTE BASOPHILS" /> <statusCode code="completed" /> <effectiveTime value="539022953647" /> <value unit="10*3/uL&quot ; xsi:type="PQ" value="0.00" /> < referenceRange> <observationRange> <text> 0.00-0.20</text> </observationRange> </ referenceRange> </observation> </component> < component> <observation moodCode="EVN" classCode="OBS&quot ;> <templateId root="2.16.840.1.709595.10..22.4.2" /& gt; <id nullFlavor="NA" /> <code codeSystem=& quot;local" code="AEOCT" displayName="*ABSOLUTE EOSINOPHILS& quot; /> <statusCode code="completed" /> & lt;effectiveTime value="895596112796" /> <value unit=& quot;10*3/uL" xsi:type="PQ" value="0.20" /> <referenceRange> <observationRange> < text>0.00-0.50</text> </observationRange> &lt ;/referenceRange> </observation> </component> & lt;component> <observation moodCode="EVN" classCode=&quot ;OBS"> <templateId root="2.16.840.1.978773.10.20.22.4.2 " /> <id nullFlavor="NA" /> <code codeSystem="local" code="ALYCT" displayName="*ABSOLUTE LYMPHOCYTES" /> <statusCode code="completed" /&gt ; <effectiveTime value="507832526244" /> < value unit="10*3/uL" xsi:type="PQ" value="2.30" /& gt; <referenceRange> <observationRange> <text>1.00-3.00</text> </observationRange> </referenceRange> </observation> </component&gt ; <component> <observation moodCode="EVN" classCode="OBS"> <templateId root=" 2.16.840.1.709482.10.20.22.4.2" /> <id nullFlavor="NA& quot; /><code codeSystem="local" code="AMOCT" displayName="*ABSOLUTE MONOCYTES" /> <statusCode code=& quot;completed" /> <effectiveTime value="217102508589& quot; /> <value unit="10*3/uL" xsi:type="PQ" value="0.50" /> <referenceRange> < observationRange> <text>0.30-1.00</text> </ observationRange> </referenceRange> </observation&gt ; </component> <component> <observation moodCode ="EVN" classCode="OBS"> <templateId root=& quot;2.16.840.1.411612.10.20.22.4.2" /> <id nullFlavor=&quot ;NA" /> <code codeSystem="local" code="ANECT& quot; displayName="*ABSOLUTE NEUTROPHILS" /> < statusCode code="completed" /> <effectiveTime value=& quot;509203169144" /> <value unit="10*3/uL" xsi: type="PQ" value="4.40" /> <referenceRange&gt ; <observationRange> <text>1.80-7.80</text> </observationRange> </referenceRange> </ observation> </component> <component> < observation moodCode="EVN" classCode="OBS"> < templateId root="2.16.840.1.456744.10.20.22.4.2" /> < id nullFlavor="NA" /> <code codeSystem="local&quot ; code="MPV" displayName="MPV" /> < statusCode code="completed" /> <effectiveTime value=& quot;408761154973" /> <value unit="fL" xsi:type=& quot;PQ" value="9.0" /> <referenceRange> & lt;observationRange> <text>7.4-10.4</text> </observationRange> </referenceRange> </ observation> </component> <component> < observation moodCode="EVN" classCode="OBS"> < templateId root="2.16.840.1.202946.10.20.22.4.2"/> <id nullFlavor="NA" /> <code codeSystem="local" code="PLT" displayName="PLATELETS" /> < statusCode code="completed" /> <effectiveTime value=& quot;611536091782" /> <value unit="10*3/uL" xsi: type="PQ" value="135" /> <interpretationCode codeSystem="local" code="*" /> < referenceRange> <observationRange> <text>159-386& lt;/text> </observationRange> </referenceRange& gt; </observation> </component> <component> <observation moodCode="EVN" classCode="OBS"> <templateId root="2.16.840.1.421950.10.20.22.4.2" /> & lt;id nullFlavor="NA" /> <code codeSystem="local& quot; code="WBCIR" displayName="WBC" /> < statusCode code="completed" /> <effectiveTime value=& quot;387883596412" /> <value unit="10*3/uL" xsi: type="PQ" value="7.4" /> <referenceRange> <observationRange> <text>3.6-11.2</text& gt; </observationRange> </referenceRange> </observation> </component> <component> < observation moodCode="EVN" classCode="OBS"> < templateId root="2.16.840.1.001533.10.20.22.4.2" /> < id nullFlavor="NA" /> <code codeSystem="local" code="RBC" displayName="RBC" /> <statusCode code= "completed" /> <effectiveTime value="794369747458& quot; /> <value unit="" xsi:type="PQ" value=& quot;3.87"/> <referenceRange> < observationRange> <text>3.63-4.92</text> </observationRange> </referenceRange> </ observation> </component> <component> < observation moodCode="EVN" classCode="OBS"> < templateId root="2.16.840.1.762078.10.20.22.4.2" /> < id nullFlavor="NA" /> <code codeSystem="local&quot ; code="HGB" displayName="HEMOGLOBIN" /> < statusCode code="completed" /> <effectiveTime value=& quot;140546859135" /> <value unit="" xsi:type="PQ& quot; value="10.4" /> <interpretationCode codeSystem=& quot;local" code="*" /> <referenceRange> <observationRange> <text>11.0-14.3</text> </observationRange> </referenceRange> < /observation> </component> <component> < observation moodCode="EVN" classCode="OBS"> < templateId root="2.16.840.1.675478.10.20.22.4.2" /> < id nullFlavor="NA" /> <code codeSystem="local&quot ; code="HCT" displayName="HEMATOCRIT" /> < statusCode code="completed" /> <effectiveTime value=" 119247527782" /> <value unit="%" xsi:type= "PQ" value="31.1" /> <interpretationCode codeSystem="local" code="*" /> < referenceRange> <observationRange> <text> 31.2-41.9</text> </observationRange></referenceRange& gt; </observation> </component> <component> <observation moodCode="EVN" classCode="OBS"> <templateId root="2.16.840.1.654209.10.20.22.4.2" /> <id nullFlavor="NA" /> <code codeSystem=" local" code="MCV" displayName="MCV" /> < statusCode code="completed" /> <effectiveTime value=& quot;848331586725" /> <value unit="fL" xsi:type=& quot;PQ" value="80.4" /> <referenceRange> <observationRange> <text>79.0-98.0</text> </observationRange> </referenceRange> </ observation> </component> <component> < observation moodCode="EVN" classCode="OBS"> < templateId root="2.16.840.1.862329.10.20.22.4.2" /> < id nullFlavor="NA" /> <code codeSystem="local&quot ; code="MCH" displayName="MCH" /> < statusCode code="completed" /> <effectiveTime value=& quot;141734075024" /> <value unit="pg" xsi:type="PQ& quot; value="26.8" /> <interpretationCode codeSystem=& quot;local" code="*" /> <referenceRange> <observationRange> <text>27.0-33.0</text> </observationRange> </referenceRange> &lt ;/observation> </component> <component> < observation moodCode="EVN" classCode="OBS"> < templateId root="2.16.840.1.306460.10..22.4.2" /> < id nullFlavor="NA" /> <code codeSystem="local&quot ; code="MCHC" displayName="MCHC" /> < statusCode code="completed" /> <effectiveTime value=& quot;892169134153" /> <value unit="" xsi:type=& quot;PQ" value="33.4" /> <referenceRange> <observationRange> <text>32.0-36.0</text> </observationRange> </referenceRange> </ observation> </component> <component> < observation moodCode="EVN" classCode="OBS"> < templateId root="2.16.840.1.601222.10..22.4.2" /> < id nullFlavor="NA" /> <code codeSystem="local&quot ; code="RDW" displayName="RDW" /> < statusCode code="completed" /> <effectiveTime value=& quot;267603007807" /> <value unit="%" xsi: type="PQ" value="15.5" /> <referenceRange&gt ; <observationRange> <text>12.3-17.0</text> </observationRange> </referenceRange> </ observation> </component> <component> < observation moodCode="EVN" classCode="OBS"> < templateId root="2.16.840.1.743555.10.20.22.4.2" /> < id nullFlavor="NA" /> <code codeSystem="local&quot ; code="RDWSD" displayName="RDWSD" /> < statusCode code="completed" /> <effectiveTime value=& quot;152452810112"/> <value unit="" xsi:type=&quot ;PQ" value="43.3" /> <referenceRange> < observationRange> <text>37.1-47.8</text> </observationRange> </referenceRange> </ observation> </component> </organizer> </entry> & lt;entry> <organizermoodCode="EVN" classCode="BATTERY& quot;> <templateId root="2.16.840.1.873298.10.20.22.4.1" /& gt; <id nullFlavor="NA" /> <code codeSystem=" local" code="RENL" displayName="RENAL FUNCTION PANEL" / > <statusCode code="completed" /> <component&gt ; <observation moodCode="EVN" classCode="OBS"> <templateId root="2.16.840.1.883443.10.20.22.4.2" /> <id nullFlavor="NA" /> <code codeSystem=& quot;local" code="NA" displayName="SODIUM" /> <statusCode code="completed" /> <effectiveTime value="484315867795" /> <value unit="mmol/L" xsi:type="PQ" value="138" /> <referenceRange& gt; <observationRange> <text>136-145</ text> </observationRange> </referenceRange> </observation> </component> <component> & lt;observation moodCode="EVN" classCode="OBS"> & lt;templateId root="2.16.840.1.236897.10.20.22.4.2" /> <id nullFlavor="NA" /> <code codeSystem="local" code="K" displayName="POTASSIUM" /> < statusCode code="completed" /> <effectiveTime value=& quot;329944205166" /> <value unit="mmol/L" xsi: type="PQ" value="4.0" /> <referenceRange> <observationRange> <text>3.5-5.1</text> </observationRange> </referenceRange> </ observation> </component><component> <observation moodCode="EVN" classCode="OBS"> <templateId root=& quot;2.16.840.1.523376.10.20.22.4.2" /> <id nullFlavor=&quot ;NA" /> <code codeSystem="local" code="CL& quot; displayName="CHLORIDE" /> <statusCode code=" completed" /> <effectiveTime value="407833067762" /> <value unit="mmol/L" xsi:type="PQ" value=& quot;109" /> <interpretationCode codeSystem="local&quot ; code="*" /> <referenceRange> < observationRange> <text>98-107</text> </ observationRange> </referenceRange> </observation&gt ; </component> <component> <observation moodCode ="EVN" classCode="OBS"> <templateId root=& quot;2.16.840.1.315985.10.20.22.4.2" /> <id nullFlavor=&quot ;NA" /> <code codeSystem="local" code="TCO2& quot; displayName="TCO2" /> <statusCode code=" completed" /> <effectiveTime value="944618732790" /> <value unit="mmol/L" xsi:type="PQ" value=& quot;23.2" /> <referenceRange> < observationRange> <text>21.0-32.0</text> </observationRange> </referenceRange> </ observation> </component> <component> < observation moodCode="EVN" classCode="OBS"> < templateId root="2.16.840.1.169303.10.20.22.4.2" /> < id nullFlavor="NA" /> <code codeSystem="local&quot ; code="AGAP" displayName="*ANION GAP" /> < statusCode code="completed" /> <effectiveTime value=& quot;742149043406" /> <value unit="mmol/L" xsi: type="PQ" value="5.8" /> <interpretationCode codeSystem="local" code="*" /> < referenceRange> <observationRange> <text> 8.0-16.0</text> </observationRange> </ referenceRange> </observation> </component> < component> <observation moodCode="EVN" classCode=" OBS"> <templateId root="2.16.840.1.423264.10.20.22.4.2& quot; /> <id nullFlavor="NA" /> <code codeSystem="local" code="BUN" displayName="BUN" /& gt; <statusCode code="completed" /> < effectiveTime value="600823347947" /> <value unit=&quot ;" xsi:type="PQ" value="22" /> < interpretationCode codeSystem="local" code="*" /> <referenceRange> <observationRange><text>7-18&lt ;/text> </observationRange> </referenceRange&gt ; </observation> </component> <component> <observation moodCode="EVN" classCode="OBS"> <templateId root="2.16.840.1.504108.10.20.22.4.2" /> <id nullFlavor="NA" /> <code codeSystem=" local" code="CREA" displayName="CREATININE" /> <statusCode code="completed" /> <effectiveTime value="566793448683" /> <value unit="" xsi: type="PQ" value="1.06" /> <interpretationCode codeSystem="local" code="*" /> < referenceRange> <observationRange> <text> 0.55-1.02</text> </observationRange> </referenceRange > </observation> </component> <component> <observation moodCode="EVN" classCode="OBS"> <templateId root="2.16.840.1.823559.10.20.22.4.2" />&lt ;id nullFlavor="NA" /> <code codeSystem="local& quot; code="B/C" displayName="*BUN/CREATININE RATIO" /> <statusCode code="completed" /> < effectiveTime value="700552603064" /> <value unit=&quot ;" xsi:type="PQ" value="20.8" /> < interpretationCode codeSystem="local" code="*" /> <referenceRange> <observationRange> < text>9.1-17.0</text> </observationRange> < /referenceRange> </observation> </component> &lt ;component> <observation moodCode="EVN" classCode=" OBS"> <templateId root="2.16.840.1.220062.10.20.22.4.2& quot; /> <id nullFlavor="NA" /> <code codeSystem="local" code="GLU" displayName="GLUCOSE&quot ; /> <statusCode code="completed" /> < effectiveTime value="510160140115" /> <value unit=&quot ;" xsi:type="PQ" value="113" /> < interpretationCode codeSystem="local" code="*" /> <referenceRange> <observationRange> < text>65-99</text> </observationRange> </ referenceRange> </observation> </component> < component> <observation moodCode="EVN" classCode=" OBS"> <templateId root="2.16.840.1.433530.10.20.22.4.2& quot; /> <id nullFlavor="NA" /> <code codeSystem="local" code="CA" displayName="CALCIUM&quot ; /> <statusCode code="completed" /> < effectiveTime value="752598896894" /> <value unit=&quot ;" xsi:type="PQ" value="8.6" /> < referenceRange> <observationRange> <text> 8.5-10.1</text> </observationRange> </referenceRange&gt ; </observation> </component> <component> <observation moodCode="EVN" classCode="OBS"> <templateId root="2.16.840.1.933350.10.20.22.4.2" /> <id nullFlavor="NA" /> <code codeSystem=" local" code="ALB" displayName="ALBUMIN" /> <statusCode code="completed" /> <effectiveTime value=& quot;839820191876" /> <value unit="" xsi:type=& quot;PQ" value="2.9" /> <interpretationCode codeSystem="local" code="*" /> < referenceRange> <observationRange> <text> 3.4-5.0</text> </observationRange> </ referenceRange> </observation> </component> < component> <observation moodCode="EVN" classCode=" OBS"> <templateId root="2.16.840.1.051082.10.20.22.4.2& quot; /> <id nullFlavor="NA" /> <code codeSystem ="local" code="PHOS" displayName="PHOSPHORUS" /&gt ; <statusCode code="completed" /> < effectiveTime value="872991320037" /> <value unit=&quot ;" xsi:type="PQ" value="1.6" /> < interpretationCode codeSystem="local" code="*" /> < referenceRange> <observationRange> <text> 2.6-4.7</text> </observationRange> </ referenceRange> </observation> </component> </ organizer> </entry> <entry> <organizer moodCode="EVN " classCode="BATTERY"> <templateId root=" 2..840.1.241469.10.20.22.4.1" /> <id nullFlavor="NA&quot ; /> <code codeSystem="local" code="GFRE" displayName="GFR ESTIMATION" /> <statusCode code=" completed" /> <component> <observation moodCode=& quot;EVN" classCode="OBS"> <templateId root=" 2.16.840.1.348717.10.20.22.4.2" /> <id nullFlavor="NA& quot; /> <code codeSystem="local" code="GFRN&quot ; displayName="*GFR EST NON AFR CYMRO" /> < statusCode code="completed" /> <effectiveTime value=& quot;335187076101" /> <value unit="mL/min" xsi: type="PQ" value="53" /> <referenceRange> <observationRange> <text>NRG</text> </observationRange> </referenceRange> </ observation> </component> <component> < observation moodCode="EVN" classCode="OBS"> < templateId root="2.16.840.1.470867.10.20.22.4.2" /> < id nullFlavor="NA" /> <code codeSystem="local&quot ; code="GFRA" displayName="*GRFA EST AFR AMER" /> <statusCode code="completed" /> <effectiveTime value="551198257931" /> <value unit="mL/min" xsi:type="PQ" value="61" /> <referenceRange& gt; <observationRange> <text>NRG</text&gt ;</observationRange> </referenceRange> </ observation> </component> </organizer> </entry> & lt;entry> <organizer moodCode="EVN" classCode="BATTERY& quot;> <templateId root="2.16.840.1.732121.10.20.22.4.1" /& gt; <id nullFlavor="NA" /> <code codeSystem=" local" code="POCGM" displayName="GLUCOSE, METER" /> <statusCode code="completed" /> <component> <observation moodCode="EVN" classCode="OBS"> <templateId root="2.16.840.1.782012.10.20.22.4.2" /> &lt ;id nullFlavor="NA" /> <code codeSystem="local& quot; code="POCGM" displayName="GLUCOSE, METER" /> <statusCode code="completed" /> <effectiveTime value="085890073601" /> <value unit="" xsi: type="PQ" value="109" /> <interpretationCode codeSystem="local" code="*" /> < referenceRange> <observationRange> <text> 65-99</text> </observationRange> </referenceRange& gt; </observation> </component> </organizer> & lt;/entry> <entry> <organizer moodCode="EVN" classCode ="BATTERY"> <templateId root=" 2.16.840.1.664215.10.20.22.4.1" /> <id nullFlavor="NA&quot ; /> <code codeSystem="local" code="POCGM" displayName="GLUCOSE, METER" /> <statusCode code=" completed" /> <component> <observation moodCode=& quot;EVN" classCode="OBS"> <templateId root=" 2.16.840.1.276054.10.20.22.4.2" /> <id nullFlavor="NA& quot; /> <code codeSystem="local" code="POCGM&quot ; displayName="GLUCOSE, METER" /> <statusCode code=& quot;completed" /> <effectiveTime value="278226489120& quot; /> <value unit="" xsi:type="PQ" value=& quot;130" /> <interpretationCode codeSystem="local&quot ; code="*" /> <referenceRange> < observationRange> <text>65-99</text> < /observationRange> </referenceRange> </observation&gt ; </component> </organizer> </entry> <entry> <organizer moodCode="EVN" classCode="BATTERY"> <templateId root="2.16.840.1.640824.10.20.22.4.1" /> < id nullFlavor="NA" /><code codeSystem="local" code=& quot;POCGM" displayName="GLUCOSE, METER" /> < statusCode code="completed" /> <component> < observation moodCode="EVN" classCode="OBS"> < templateId root="[id number]" /> < id nullFlavor="NA" /> <codecodeSystem="local&quot ; code="POCGM" displayName="GLUCOSE, METER" /> < statusCode code="completed" /> <effectiveTime value=& quot;[id number]" /> <value unit="" xsi:type=& quot;PQ" value="120" /> <interpretationCode codeSystem="local" code="*" /> < referenceRange> <observationRange> <text> 65-99</text> </observationRange> </ referenceRange> </observation> </component> </ organizer> </entry> <entry> <organizer moodCode="EVN " classCode="BATTERY"> <templateId root=" 2.16.840.1.015317.10.20.22.4.1" /> <id nullFlavor="NA&quot ; /> <code codeSystem="local" code="POCGM" displayName="GLUCOSE, METER" /> <statusCode code=" completed" /> <component> <observation moodCode=& quot;EVN" classCode="OBS"> <templateId root=" 2.16.840.1.889323.10.20.22.4.2" /> <id nullFlavor="NA& quot; /> <code codeSystem="local" code="POCGM&quot ; displayName="GLUCOSE, METER" /> <statusCode code=& quot;completed" /> <effectiveTime value="877242869276& quot; /> <value unit="" xsi:type="PQ" value=& quot;225" /> <interpretationCode codeSystem="local&quot ; code="*" /> <referenceRange> <observationRange > <text>65-99</text> </ observationRange> </referenceRange> </observation&gt ; </component> </organizer> </entry> <entry> <organizer moodCode="EVN" classCode="BATTERY"> <templateId root="2.16.840.1.420026.10.20.22.4.1" /> < id nullFlavor="NA" /> <code codeSystem="local" code="POCGM" displayName="GLUCOSE, METER" /> < statusCode code="completed" /> <component> < observation moodCode="EVN" classCode="OBS"> < templateId root="2.16.840.1.657186.10.20.22.4.2" /> < id nullFlavor="NA" /> <code codeSystem="local&quot ; code="POCGM" displayName="GLUCOSE, METER" /> & lt;statusCode code="completed" /> <effectiveTime value=" 699307488055" /> <value unit="" xsi:type="PQ& quot; value="200" /> <interpretationCode codeSystem=& quot;local" code="*" /> <referenceRange> <observationRange> <text>65-99</text> </observationRange> </referenceRange> </ observation> </component> </organizer> </entry>&lt ;entry> <organizer moodCode="EVN" classCode="BATTERY& quot;> <templateId root="2.16.840.1.929541.10.20.22.4.1" /& gt; <id nullFlavor="NA"/> <code codeSystem=" local" code="iCHEM8" displayName="CHEM/HEM PROFILE-BEDSIDE& quot; /> <statusCode code="completed" /> < component> <observation moodCode="EVN" classCode=" OBS"> <templateId root="2.16.840.1.918282.10.20.22.4.2& quot; /> <id nullFlavor="NA" /> <code codeSystem="local" code="K" displayName="POTASSIUM&quot ; /> <statusCode code="completed" /> < effectiveTime value="243921231986" /> <value unit=&quot ;mmol/L" xsi:type="PQ" value="5.4" /> < interpretationCode codeSystem="local" code="*" /> <referenceRange> <observationRange> < text>3.5-5.3</text> </observationRange> </ referenceRange> </observation> </component> < component> <observation moodCode="EVN" classCode=" OBS"> <templateId root="2.16.840.1.721911.10.20.22.4.2& quot; /> <id nullFlavor="NA" /> <code codeSystem="local" code="CMETHOD" displayName="METHOD& quot; /> <statusCode code="completed" /> & lt;effectiveTime value="262590874771" /> <value unit="& quot; xsi:type="PQ" value="Bedside" /> < referenceRange> <observationRange> <text /& gt; </observationRange> </referenceRange> </observation> </component> <component> &lt ;observation moodCode="EVN" classCode="OBS"> &lt ;templateId root="2.16.840.1.620675.10..22.4.2" /> < id nullFlavor="NA" /> <code codeSystem="local&quot ; code="GAP" displayName="ANION GAP" /> < statusCode code="completed" /> <effectiveTime value=& quot;302871948166" /> <value unit="mmol/L" xsi: type="PQ" value="17" /> <referenceRange> <observationRange> <text>10-20</text> </observationRange> </referenceRange> </ observation> </component> <component> < observation moodCode="EVN" classCode="OBS"> < templateId root="2.16.840.1.809979.10..22.4.2" /> < id nullFlavor="NA" /> <code codeSystem="local&quot ; code="HMETHOD" displayName="METHOD" /> < statusCode code="completed" /> <effectiveTime value=& quot;741606939849" /> <value unit="" xsi:type=& quot;PQ" value="Bedside" /> <referenceRange> <observationRange> <text /> </ observationRange> </referenceRange> </observation&gt ; </component> <component> <observation moodCode ="EVN" classCode="OBS"> <templateId root=& quot;2.16.840.1.592545.10.20.22.4.2" /> <id nullFlavor=&quot ;NA" /> <code codeSystem="local" code="GLU& quot; displayName="GLUCOSE" /> <statusCode code=" completed" /> <effectiveTime value="900808085616" /> <value unit="mg/dL" xsi:type="PQ" value=& quot;266" /> <interpretationCode codeSystem="local&quot ; code="*" /> <referenceRange> < observationRange> <text>70-99</text> < /observationRange> </referenceRange> </observation& gt; </component> <component> <observation moodCode= "EVN" classCode="OBS"> <templateId root=" 2.16.840.1.826598.10.20.22.4.2" /> <id nullFlavor="NA& quot; /> <code codeSystem="local" code="BUN" displayName="BLOOD UREA NITROGEN" /> <statusCode code=& quot;completed" /> <effectiveTime value="271197011926" /> <value unit="mg/dL" xsi:type="PQ" value=& quot;21" /> <interpretationCode codeSystem="local&quot ; code="*" /> <referenceRange> < observationRange> <text>7-20</text> </ observationRange> </referenceRange> </observation&gt ; </component> <component> <observation moodCode ="EVN" classCode="OBS"> <templateId root=& quot;2.16.840.1.596296.10.20.22.4.2" /> <id nullFlavor=&quot ;NA" /> <code codeSystem="local" code="CREAT" displayName="CREATININE" /> <statusCode code=" completed" /> <effectiveTime value="085781943538" /> <value unit="mg/dL" xsi:type="PQ" value=& quot;1.0" /> <referenceRange> < observationRange> <text>0.6-1.0</text> & lt;/observationRange> </referenceRange> </observation&gt ; </component> <component> <observation moodCode ="EVN" classCode="OBS"> <templateId root=& quot;2.16.840.1.736692.10.20.22.4.2" /> <id nullFlavor=&quot ;NA" /> <code codeSystem="local" code="HGBT& quot; displayName="HEMOGLOBIN" /> <statusCode code=& quot;completed" /> <effectiveTime value="794727533395& quot; /> <value unit="gm/dL" xsi:type="PQ" value="14.6" /> <referenceRange> < observationRange> <text>12.0-16.0</text> </observationRange> </referenceRange> </ observation> </component> <component> < observation moodCode="EVN" classCode="OBS"> < templateId root="2.16.840.1.931081.10.20.22.4.2" /> < id nullFlavor="NA" /> <code codeSystem="local&quot ; code="HCTT" displayName="HEMATOCRIT" /> < statusCode code="completed" /> <effectiveTime value=& quot;384098149877" /> <value unit="%" xsi: type="PQ" value="43.0" /> <referenceRange&gt ; <observationRange> <text>37.0-47.0</ text> </observationRange> </referenceRange> </observation></component> <component> < observation moodCode="EVN" classCode="OBS"> < templateId root="2.16.840.1.751571.10.20.22.4.2" /> <id nullFlavor="NA" /> <code codeSystem="local" code="NA" displayName="SODIUM" /> < statusCode code="completed" /> <effectiveTime value=& quot;747169358102" /> <value unit="mmol/L" xsi: type="PQ" value="138" /> <referenceRange> <observationRange> <text>135-148</text> </observationRange> </referenceRange> </ observation> </component> <component> < observation moodCode="EVN" classCode="OBS"> < templateId root="2.16.840.1.090041.10.20.22.4.2" /> < id nullFlavor="NA" /> <code codeSystem="local&quot ; code="CL" displayName="CHLORIDE" /> < statusCode code="completed" /> <effectiveTime value=& quot;245509388129" /> <value unit="mmol/L" xsi: type="PQ" value="105" /> <referenceRange> <observationRange> <text>98-110</text&gt ; </observationRange> </referenceRange> & lt;/observation> </component> <component>< observation moodCode="EVN" classCode="OBS"> < templateId root="2.16.840.1.631526.10.20.22.4.2" /> < id nullFlavor="NA" /> <code codeSystem="local" code ="CO2" displayName="CARBON DIOXIDE" /> < statusCode code="completed" /> <effectiveTime value=& quot;460049906470" /> <value unit="mmol/L" xsi: type="PQ" value="22" /> <referenceRange> <observationRange><text>21-32</text> &lt ;/observationRange> </referenceRange> </observation& gt; </component> <component> <observation moodCode="EVN" classCode="OBS"> <templateId root="2.16.840.1.930603.10.20.22.4.2" /> <id nullFlavor ="NA" /> <code codeSystem="local" code=" CAION" displayName="CALCIUM IONIZED" /><statusCode code=& quot;completed" /> <effectiveTime value="459948287186& quot; /> <value unit="mg/dL" xsi:type="PQ" value="4.8" /> <referenceRange> < observationRange> <text>4.5-5.3</text> & lt;/observationRange> </referenceRange> </ observation> </component> </organizer> </entry> & lt;entry> <organizer moodCode="EVN" classCode="BATTERY& quot;> <templateId root="2.16.840.1.204804.10.20.22.4.1" /& gt; <id nullFlavor="NA" /> <code codeSystem=" local" code="CBCD" displayName="CBC W/DIFF" /> <statusCode code="completed" /> <component> & lt;observation moodCode="EVN" classCode="OBS"> & lt;templateId root="2.16.840.1.664868.10.20.22.4.2" /> &lt ;id nullFlavor="NA" /> <code codeSystem="local& quot; code="BA#" displayName="BASOPHIL #" /> &lt ;statusCode code="completed" /> <effectiveTime value=& quot;354720011360" /> <value unit="k/cumm" xsi:type=" PQ" value="0.0" /> <referenceRange> <observationRange> <text>0.0-0.2</text> </observationRange> </referenceRange> </ observation> </component> <component> < observation moodCode="EVN" classCode="OBS"> < templateId root="2.16.840.1.027100.10..22.4.2" /> <id nullFlavor="NA" /> <code codeSystem="local" code="BA%" displayName="BASOPHIL %" /> <statusCode code="completed" /> < effectiveTime value="545338873188" /> <value unit=&quot ;%" xsi:type="PQ" value="0.4" /> & lt;referenceRange> <observationRange> <text& gt;0-1</text> </observationRange> </referenceRange& gt; </observation> </component> <component> <observation moodCode="EVN" classCode="OBS"> <templateId root="2.16.840.1.883728.10..22.4.2" /> &lt ;id nullFlavor="NA" /> <code codeSystem="local& quot; code="EO#" displayName="EOSINOPHIL #" /> & lt;statusCode code="completed"/> <effectiveTime value=& quot;243513605179" /> <value unit="k/cumm" xsi: type="PQ" value="0.2" /> <referenceRange> <observationRange> <text>0.1-0.5</text> </observationRange> </referenceRange> </ observation> </component> <component> < observation moodCode="EVN" classCode="OBS"> < templateId root="2.16.840.1.502526.10.20.22.4.2" /> < id nullFlavor="NA" /> <code codeSystem="local&quot ; code="EO%" displayName="EOSINOPHIL %" /&gt ; <statusCode code="completed" /> < effectiveTime value="929968619023" /> <value unit=&quot ;%" xsi:type="PQ" value="2.2" /> & lt;referenceRange> <observationRange> <text>2- 4</text> </observationRange> </referenceRange > </observation> </component> <component> <observation moodCode="EVN" classCode="OBS"> <templateId root="2.16.840.1.319236.10..22.4.2" /> <id nullFlavor="NA" /> <code codeSystem="local& quot; code="GR#" displayName="GRANULOCYTE #" /> <statusCode code="completed" /> <effectiveTime value ="628460829981" /> <value unit="k/cumm" xsi: type="PQ" value="6.4" /> <referenceRange> <observationRange> <text>2.0-9.0</text& gt; </observationRange> </referenceRange> </ observation> </component> <component> < observation moodCode="EVN" classCode="OBS"> < templateId root="2.16.840.1.245638.10..22.4.2" /> < id nullFlavor="NA" /> <code codeSystem="local&quot ; code="GR%" displayName="GRANULOCYTE %" /& gt; <statusCode code="completed" /> < effectiveTime value="100123604966" /> <value unit=&quot ;%" xsi:type="PQ" value="69.1" /> & lt;referenceRange> <observationRange> <text& gt;50-75</text> </observationRange> </referenceRange > </observation> </component> <component> <observation moodCode="EVN" classCode="OBS"> <templateId root="2.16.840.1.698209.10.20.22.4.2" /> <id nullFlavor="NA" /> <code codeSystem=& quot;local" code="LY#" displayName="LYMPHOCYTE #" /&gt ; <statusCode code="completed" /> < effectiveTime value="416159162794" /> <value unit=&quot ;k/cumm" xsi:type="PQ" value="2.2" /> < referenceRange> <observationRange> <text>1.0-4.0 </text> </observationRange> </referenceRange& gt; </observation> </component> <component> <observation moodCode="EVN" classCode="OBS"> <templateId root="2.16.840.1.202303.10.20.22.4.2" /> <id nullFlavor="NA" /> <code codeSystem=&quot ;local" code="LY%" displayName="LYMPHOCYTE % " /> <statusCode code="completed" /> & lt;effectiveTime value="647948437205" /> <value unit=& quot;%" xsi:type="PQ"value="23.4" /> <referenceRange> <observationRange> <text& gt;20-30</text> </observationRange> </ referenceRange> </observation> </component> < component> <observation moodCode="EVN" classCode=" OBS"> <templateId root="2.16.840.1.567060.10.20.22.4.2& quot; /> <id nullFlavor="NA" /> <code codeSystem="local" code="MCH" displayName="MEAN CELL HGB" /> <statusCode code="completed" /> &lt ;effectiveTime value="875657377876" /> <value unit=& quot;pg" xsi:type="PQ" value="26.4" /> < interpretationCode codeSystem="local" code="*" /> < referenceRange> <observationRange> <text> 27.0-33.0</text> </observationRange> </ referenceRange> </observation> </component> < component> <observation moodCode="EVN" classCode=" OBS"> <templateId root="2.16.840.1.467597.10.20.22.4.2& quot; /> <id nullFlavor="NA" /> <code codeSystem="local" code="MCHC" displayName="MEAN CELL HGB CONCENTRATION" /> <statusCode code="completed&quot ; /> <effectiveTime value="646556336156" /> & lt;value unit="g/dL" xsi:type="PQ" value="32.7" /& gt;<referenceRange> <observationRange> < text>32.0-37.0</text> </observationRange> &lt ;/referenceRange> </observation> </component> & lt;component> <observation moodCode="EVN" classCode=&quot ;OBS"> <templateId root="2.16.840.1.371580.10.20.22.4.2 " /> <id nullFlavor="NA" /> <code codeSystem="local" code="MCV" displayName="MEAN CELL VOLUME" /> <statusCode code="completed" /> <effectiveTime value="118015829703" /> <value unit="fl" xsi:type="PQ" value="80.9" /> <referenceRange> <observationRange> < text>80.0-100.0</text> </observationRange> </ referenceRange> </observation> </component> < component> <observation moodCode="EVN" classCode=" OBS"> <templateId root="2.16.840.1.220327.10.20.22.4.2& quot; /> <id nullFlavor="NA" /> <code codeSystem="local" code="MO#" displayName="MONOCYTE #& quot; /> <statusCode code="completed" /> & lt;effectiveTime value="620718578236" /> <value unit=& quot;k/cumm" xsi:type="PQ" value="0.4" /> & lt;referenceRange> <observationRange> <text>0.1-1.0 </text> </observationRange> </referenceRange& gt; </observation> </component> <component> <observation moodCode="EVN" classCode="OBS"> & lt;templateId root="2.16.840.1.107781.10.20.22.4.2" /> &lt ;id nullFlavor="NA" /> <code codeSystem="local& quot; code="MO%" displayName="MONOCYTE %" /& gt; <statusCode code="completed" /> < effectiveTime value="807372359191" /> <value unit=&quot ;%" xsi:type="PQ" value="4.6" /> & lt;referenceRange> <observationRange> <text>4-6</ text> </observationRange> </referenceRange> </observation> </component> <component> <observation moodCode="EVN" classCode="OBS"> <templateId root="2.16.840.1.266247.10.20.22.4.2" /> <id nullFlavor="NA" /> <code codeSystem=" local" code="MPVT" displayName="MEAN PLATELET VOLUME" / > <statusCode code="completed" /> < effectiveTime value="554596957872" /> <value unit=&quot ;fl" xsi:type="PQ" value="10.5" /> < referenceRange> <observationRange> <text> 8.5-10.9</text> </observationRange> </referenceRange& gt; </observation> </component> <component> <observation moodCode="EVN" classCode="OBS"> <templateId root="2.16.840.1.925903.10.20.22.4.2" /> <id nullFlavor="NA" /> <code codeSystem=" local" code="RBC" displayName="RED BLOOD CELL" /> <statusCode code="completed" /> < effectiveTime value="863222137571" /> <value unit=&quot ;m/cumm" xsi:type="PQ"value="5.03" /> < referenceRange> <observationRange> <text>4.00- 6.00</text> </observationRange> </ referenceRange> </observation> </component> < component> <observation moodCode="EVN" classCode=" OBS"> <templateId root="2.16.840.1.446308.10.20.22.4.2& quot; /> <id nullFlavor="NA" /> <code codeSystem="local" code="RDW" displayName="RED CELL DISTRIBUTION WIDTH" /> <statusCode code="completed&quot ; /> <effectiveTime value="981550510884" /> <value unit="%" xsi:type="PQ" value="13.6& quot; /> <referenceRange> <observationRange> <text>11.0-15.6</text> </observationRange& gt; </referenceRange> </observation> </ component> <component> <observation moodCode="EVN& quot; classCode="OBS"> <templateId root=" 2.16.840.1.338099.10.20.22.4.2" /> <id nullFlavor="NA& quot; /> <code codeSystem="local" code="WBC" displayName="WHITE BLOOD CELL"/> <statusCode code=&quot ;completed" /> <effectiveTime value="440183015941&quot ; /> <value unit="k/cumm" xsi:type="PQ" value ="9.3" /> <referenceRange> < observationRange><text>5.0-10.0</text> </ observationRange> </referenceRange> </observation&gt ; </component> <component> <observationmoodCode= "EVN" classCode="OBS"> <templateId root=&quot ;2.16.840.1.669755.10.20.22.4.2" /> <id nullFlavor="NA& quot; /> <code codeSystem="local" code="HGBT&quot ; displayName="HEMOGLOBIN" /> <statusCode code=" completed" /> <effectiveTime value="848227792639" /> <value unit="gm/dL" xsi:type="PQ" value=& quot;13.3" /> <referenceRange> < observationRange> <text>12.0-16.0</text> </observationRange> </referenceRange> </ observation> </component> <component> < observation moodCode="EVN" classCode="OBS"> < templateId root="2.16.840.1.315106.10..22.4.2" /> < id nullFlavor="NA" /> <code codeSystem="local&quot ; code="HCTT" displayName="HEMATOCRIT" /> < statusCode code="completed" /> <effectiveTime value=& quot;170666788896" /><value unit="%" xsi:type=&quot ;PQ" value="40.7" /> <referenceRange> <observationRange> <text>37.0-47.0</text> </observationRange> </referenceRange> </ observation> </component> <component> < observation moodCode="EVN" classCode="OBS"> < templateId root="2.16.840.1.212413.10.20.22.4.2" /> < id nullFlavor="NA" /> <code codeSystem="local&quot ; code="NRBC%" displayName="NRBC %" /> <statusCode code="completed" /> < effectiveTime value="390171950624" /><value unit="/100WBC& quot; xsi:type="PQ" value="0.0" /> < referenceRange> <observationRange> <text> 0.0-0.0</text> </observationRange> </ referenceRange> </observation> </component> < component> <observation moodCode="EVN" classCode=" OBS"> <templateId root="2.16.840.1.068274.10.20.22.4.2& quot; /> <id nullFlavor="NA" /> <code codeSystem="local" code="PLTT" displayName="PLATELET COUNT" /> <statusCode code="completed" /> <effectiveTime value="491791279232" /> <value unit="k/cumm" xsi:type="PQ" value="196" /> <referenceRange> <observationRange> & lt;text>150-400</text> </observationRange> & lt;/referenceRange> </observation> </component> <component> <observation moodCode="EVN" classCode=& quot;OBS"> <templateId root=" 2.16.840.1.949610.10..22.4.2" /> <id nullFlavor="NA& quot; /> <code codeSystem="local" code="IG&#37 ;" displayName="IMMATURE GRANULOCYTE %" /> & lt;statusCode code="completed" /> <effectiveTime value= "055897945519" /> <value unit="%" xsi :type="PQ" value="0.3" /> <referenceRange&gt ; <observationRange> <text>0.0-0.6</text& gt; </observationRange> </referenceRange> </ observation> </component> <component> < observation moodCode="EVN" classCode="OBS"> < templateId root="2.16.840.1.055330.10..22.4.2" /> <id nullFlavor="NA" /> <code codeSystem="local" code="IG#" displayName="IMMATURE GRANULOCYTE #" /> <statusCode code="completed" /> <effectiveTime value="728215843437" /> <value unit="k/cumm" xsi:type="PQ" value="0.03" /> <referenceRange > <observationRange> <text>0.00-0.09</ text> </observationRange> </referenceRange> </ observation> </component> </organizer> </entry> & lt;entry> <organizer moodCode="EVN" classCode="BATTERY& quot;> <templateId root="2.16.840.1.471032.10.20.22.4.1" /& gt; <id nullFlavor="NA" /> <code codeSystem=" local" code="TSH" displayName="THYROID STIM HORMONE (TSH)& quot; /> <statusCode code="completed" /> < component> <observation moodCode="EVN" classCode=" OBS"> <templateId root="2.16.840.1.362490.10.20.22.4.2& quot; /> <id nullFlavor="NA" /> <code codeSystem="local" code="TSH" displayName="THYROID STIM HORMONE (TSH)" /> <statusCodecode="completed&quot ; /> <effectiveTime value="191477672314" /> < value unit="uIU/mL" xsi:type="PQ" value="0.89" /& gt;<referenceRange> <observationRange> < text>0.34-4.82</text> </observationRange> &lt ;/referenceRange> </observation> </component> < /organizer> </entry> <entry> <organizer moodCode=" EVN" classCode="BATTERY"> <templateId root=" 2.16.840.1.333873.10.20.22.4.1" /> <id nullFlavor="NA&quot ; /> <code codeSystem="local" code="VITD25" displayName="VITAMIN D 25-HYDROXY" /> <statusCode code=& quot;completed" /> <component> <observation moodCode="EVN" classCode="OBS"> <templateId root="2.16.840.1.548285.10.20.22.4.2" /> <id nullFlavor ="NA" /> <code codeSystem="local" code=" VITD25" displayName="VITAMIN D 25-HYDROXY" /> < statusCode code="completed" /> <effectiveTime value=& quot;988670837706"/> <value unit="ng/mL" xsi:type= "PQ" value="7.2" /> <interpretationCode codeSystem="local" code="*" /> < referenceRange> <observationRange> <text> 30.0-100.0</text> </observationRange> </ referenceRange> </observation> </component> </ organizer> </entry> <entry> <organizer moodCode="EVN " classCode="BATTERY"> <templateId root=" 2.16.840.1.361436.10.20.22.4.1" /> <id nullFlavor="NA&quot ; /> <code codeSystem="local" code="VITB12" displayName="VITAMIN B12" /> <statusCode code=" completed" /> <component> <observation moodCode=& quot;EVN" classCode="OBS"> <templateId root=" 2.16.840.1.470931.10.20.22.4.2" /> <id nullFlavor="NA& quot; /> <code codeSystem="local" code="VITB12& quot; displayName="VITAMIN B12" /> <statusCode code=& quot;completed" /> <effectiveTime value="728788299161& quot; /> <value unit="pg/mL" xsi:type="PQ" value="414" /> <referenceRange> < observationRange> <text>211-911</text> & lt;/observationRange> </referenceRange> </ observation> </component> </organizer> </entry> & lt;entry> <organizer moodCode="EVN" classCode="BATTERY& quot;> <templateId root="2.16.840.1.856745.10.20.22.4.1" /& gt; <id nullFlavor="NA" /> <code codeSystem=" local" code="HBA1C" displayName="HEMOGLOBIN A1C" /> <statusCode code="completed" /> <component> <observation moodCode="EVN" classCode="OBS"> <templateId root="2.16.840.1.408126.10.20.22.4.2" /> < id nullFlavor="NA" /> <code codeSystem="local&quot ; code="HBA1C" displayName="HEMOGLOBIN A1C" /> & lt;statusCode code="completed" /> <effectiveTime value= "644387531097" /> <value unit="%" xsi :type="PQ" value="9.5" /> < interpretationCode codeSystem="local" code="*" /> <referenceRange> <observationRange> < text>< 5.7</text> </observationRange> </referenceRange> </observation> </component> & lt;/organizer> </entry> <entry> <organizer moodCode=&quot ;EVN" classCode="BATTERY"> <templateId root=" 2.16.840.1.345462.10.20.22.4.1" /> <id nullFlavor="NA" /&gt ; <code codeSystem="local" code="UA" displayName=& quot;URINALYSIS, ROUTINE" /> <statusCode code="completed& quot; /> <component> <observation moodCode="EVN& quot; classCode="OBS"> <templateId root=" 2.16.840.1.094794.10.20.22.4.2" /> <id nullFlavor="NA& quot; /> <code codeSystem="local" code="LEUESU& quot; displayName="UA LEUKOCYTE ESTERASE DIPSTICK" /> < statusCode code="completed" /> <effectiveTime value=& quot;226722151232" /> <value unit="" xsi:type=& quot;PQ" value="NEGATIVE" /> <referenceRange> <observationRange> <text>NEGATIVE</text& gt; </observationRange> </referenceRange> </observation> </component> <component> &lt ;observation moodCode="EVN" classCode="OBS"> &lt ;templateId root="2.16.840.1.878344.10.20.22.4.2" /> < idnullFlavor="NA" /> <code codeSystem="local&quot ; code="NITRIU" displayName="UA NITRITE DIPSTICK" /> <statusCode code="completed" /> < effectiveTime value="[id number]" /> <value unit=&quot ;" xsi:type="PQ" value="POSITIVE" /> < interpretationCode codeSystem="local" code="*" /> <referenceRange> <observationRange> < text>NEGATIVE</text> </observationRange> </ referenceRange> </observation> </component> < component> <observation moodCode="EVN" classCode=" OBS"> <templateId root="[id number]& quot; /> <id nullFlavor="NA" /> <code codeSystem="local" code="PROTEIU" displayName="UA PROTEIN DIPSTICK" /> <statusCode code="completed" /> <effectiveTime value="[id number]" /> & lt;value unit="" xsi:type="PQ" value="TRACE" /&gt ; <interpretationCode codeSystem="local"code="*&quot ; /> <referenceRange> <observationRange> <text>NEGATIVE</text> </observationRange> </referenceRange> </observation> </component> <component> <observation moodCode="EVN" classCode=& quot;OBS"> <templateId root=" [id number]" /> <id nullFlavor="NA& quot; /> <code codeSystem="local" code="DGLUU&quot ; displayName="UA GLUCOSE DIPSTICK" /> <statusCode code ="completed" /> <effectiveTime value="409553479018 " /> <value unit="" xsi:type="PQ" value= "4+" /> <interpretationCode codeSystem="local&quot ; code="*" /> <referenceRange> < observationRange> <text>NEGATIVE</text> & lt;/observationRange> </referenceRange> </ observation> </component> <component> < observation moodCode="EVN"classCode="OBS"> < templateId root="2.16.840.1.892412.10.20.22.4.2" /> < id nullFlavor="NA" /> <code codeSystem="local&quot ; code="KETONU" displayName="UA KETONE DIPSTICK" /> <statusCode code="completed" /> <effectiveTime value="713120702990" /> <value unit="" xsi:type=&quot ;PQ" value="1+" /> <interpretationCode codeSystem= "local" code="*" /> <referenceRange> <observationRange> <text>NEGATIVE</text> </observationRange> </referenceRange> </ observation> </component> <component> < observation moodCode="EVN" classCode="OBS"> < templateId root="2.16.840.1.453261.10.20.22.4.2" /> < id nullFlavor="NA" /> <code codeSystem="local&quot ; code="UROBILU" displayName="UA UROBILINOGEN DIPSTICK" /&gt ; <statusCode code="completed" /> < effectiveTime value="726593510037" /> <value unit=&quot ;" xsi:type="PQ" value="NORMAL" /> < referenceRange> <observationRange> <text>NORMAL& lt;/text> </observationRange> </referenceRange& gt; </observation> </component> <component> <observation moodCode="EVN" classCode="OBS"> <templateId root="2.16.840.1.443286.10.20.22.4.2" /> & lt;id nullFlavor="NA" /> <code codeSystem="local& quot; code="BILU" displayName="UA BILIRUBIN DIPSTICK" /> <statusCode code="completed" /> <effectiveTime value="334437215963" /> <value unit="" xsi: type="PQ" value="NEGATIVE" /> <referenceRange > <observationRange> <text>NEGATIVE</ text> </observationRange> </referenceRange> </observation> </component> <component> <observation moodCode="EVN" classCode="OBS"> <templateId root="2.16.840.1.807802.10.20.22.4.2" /> <id nullFlavor="NA" /> <code codeSystem=" local" code="ZHANNA" displayName="UA BLOOD DIPSTICK" /&gt ; <statusCode code="completed" /> < effectiveTime value="560458501505" /> <value unit=&quot ;" xsi:type="PQ" value="NEGATIVE" /> < referenceRange> <observationRange> <text> NEGATIVE</text> </observationRange> </ referenceRange> </observation> </component> < component> <observation moodCode="EVN" classCode="OBS& quot;> <templateId root="2.16.840.1.145303.10.20.22.4.2&quot ; /> <id nullFlavor="NA" /> <code codeSystem="local" code="SPGRU" displayName="UA SPECIFIC GRAVITY" /> <statusCode code="completed" /> <effectiveTimevalue="589912348803" /> & lt;value unit="" xsi:type="PQ" value="1.023" /&gt ; <referenceRange> <observationRange> < text>1.015-1.025</text> </observationRange> & lt;/referenceRange> </observation> </component> <component> <observation moodCode="EVN" classCode=& quot;OBS"> <templateId root=" 2.16.840.1.770834.10.20.22.4.2" /> <id nullFlavor="NA& quot; /> <code codeSystem="local" code="JUAN M" displayName="UR PH" /> <statusCode code="completed" /& gt; <effectiveTime value="152429943594" /> &lt ;value unit="" xsi:type="PQ" value="6.0" /> <referenceRange> <observationRange> & lt;text>5.0-7.0</text> </observationRange> & lt;/referenceRange> </observation> </component> & lt;/organizer> </entry> <entry> <organizer moodCode=&quot ;EVN" classCode="BATTERY"> <templateId root=" 2.16.840.1.267321.10.20.22.4.1" /> <id nullFlavor="NA&quot ; /> <code codeSystem="local" code="UAMICRO" displayName="UA MICROSCOPIC" /> <statusCode code=" completed" /> <component> <observation moodCode=& quot;EVN" classCode="OBS"> <templateId root=" 2.16.840.1.699736.10.20.22.4.2" /> <id nullFlavor="NA& quot; /> <code codeSystem="local" code="BACU&quot ; displayName="UA BACTERIA" /> <statusCode code=" completed" /> <effectiveTime value="908446743870" /> <value unit="" xsi:type="PQ" value="5+& quot; /> <interpretationCode codeSystem="local" code=& quot;*" /> <referenceRange> < observationRange> <text>NEGATIVE</text> & lt;/observationRange> </referenceRange> </ observation> </component> <component> < observation moodCode="EVN" classCode="OBS"> < templateId root="2.16.840.1.607847.10.20.22.4.2" /> < id nullFlavor="NA" /> <code codeSystem="local&quot ; code="EPIU" displayName="UA EPITHELIAL CELLS" /> <statusCode code="completed" /> <effectiveTime value="007732723575" /> <value unit="epi/hpf&quot ; xsi:type="PQ" value="0" /> <referenceRange& gt; <observationRange> <text>0 - 1+</text> </observationRange> </referenceRange> </ observation> </component> <component> < observation moodCode="EVN" classCode="OBS"> < templateId root="2.16.840.1.583670.10..22.4.2" /> < id nullFlavor="NA" /> <code codeSystem="local&quot ; code="RBCU" displayName="UA RBC" /> < statusCode code="completed" /> <effectiveTime value=& quot;066125728011" /> <value unit="rbc/hpf" xsi: type="PQ" value="0" /> <referenceRange> <observationRange> <text>0 - 3</text> </observationRange> </referenceRange> &lt ;/observation> </component> <component> < observation moodCode="EVN" classCode="OBS"> < templateId root="2.16.840.1.654740.10..22.4.2" /> < id nullFlavor="NA" /><code codeSystem="local" code=& quot;UAVOL" displayName="UA VOLUME FOR EXAM" /> < statusCode code="completed" /> <effectiveTime value=& quot;451946994844" /> <value unit="mL" xsi:type=& quot;PQ" value="12.0" /> <referenceRange> <observationRange><text>(12mL STD)</text> & lt;/observationRange> </referenceRange> </ observation> </component> <component> < observation moodCode="EVN" classCode="OBS"> < templateId root="2.16.840.1.212480.10.20.22.4.2" /> < id nullFlavor="NA" /> <code codeSystem="local&quot ; code="WBCU" displayName="UA WBC" /> < statusCode code="completed" /> <effectiveTime value=& quot;818622849403"/> <value unit="wbc/hpf" xsi: type="PQ" value="10-20" /> < interpretationCode codeSystem="local" code="*" /> <referenceRange> <observationRange> < text>0 - 5</text> </observationRange> </ referenceRange> </observation> </component> < component> <observation moodCode="EVN" classCode=" OBS"> <templateId root="2.16.840.1.245745.10.20.22.4.2& quot; /> <id nullFlavor="NA" /> <code codeSystem="local" code="WBCCLUMPS" displayName="WBC CLUMPS" /> <statusCode code="completed" /> <effectiveTime value="922705925797" /> <value unit="" xsi:type="PQ" value="PRESENT" /> <interpretationCode codeSystem="local" code="*" /&gt ; <referenceRange> <observationRange> <text>NEGATIVE</text> </observationRange> </referenceRange> </observation> </component&gt ; </organizer> </entry> <entry> <organizer moodCode ="EVN" classCode="BATTERY"> <templateId root=& quot;2.16.840.1.003018.10.20.22.4.1" /> <id nullFlavor="NA& quot; /> <code codeSystem="local" code="DRUGAB" displayName="UR DRUGS OF ABUSE SCREEN" /> <statusCode code= "completed" /> <component> <observation moodCode="EVN" classCode="OBS"> <templateId root="2.16.840.1.744544.10.20.22.4.2" /> <id nullFlavor ="NA" /> <code codeSystem="local" code=" AMPHU" displayName="UR AMPHETAMINES SCREEN" /> < statusCode code="completed" /> <effectiveTime value=& quot;873671584272" /> <value unit="" xsi:type=& quot;PQ" value="NEG (<1000 ng/mL)" /> < referenceRange> <observationRange> <text> NEGATIVE</text> </observationRange> </ referenceRange> </observation></component> < component> <observation moodCode="EVN" classCode=" OBS"> <templateId root="2.16.840.1.492269.10.20.22.4.2& quot; /> <id nullFlavor="NA" /> <code codeSystem="local" code="BARBU" displayName="UR BARBITURATE SCREEN" /> <statusCode code="completed&quot ; /> <effectiveTime value="341375013888" /> <value unit="" xsi:type="PQ" value="NEG (&lt ; 200 ng/mL)" /> <referenceRange> < observationRange> <text>NEGATIVE</text> & lt;/observationRange> </referenceRange> </ observation> </component> <component> < observation moodCode="EVN" classCode="OBS"> < templateId root="2.16.840.1.166567.10.20.22.4.2"/> <id nullFlavor="NA" /> <code codeSystem="local" code="DAUCOMMENT" displayName="DRUGS OF ABUSE SCREEN COMMENT&quot ; /> <statusCode code="completed" /> < effectiveTime value="013688748929" /> <value unit=&quot ;" xsi:type="PQ" value="" /> < referenceRange> <observationRange> <text /& gt; </observationRange> </referenceRange> </ observation> </component> <component> < observation moodCode="EVN" classCode="OBS"> < templateId root="2.16.840.1.799028.10.20.22.4.2" /> < id nullFlavor="NA" /> <code codeSystem="local&quot ; code="OPIU" displayName="UR OPIATES SCREEN" /> <statusCode code="completed" /> <effectiveTime value="300633892482" /> <value unit="" xsi: type="PQ" value="POS (> 300 ng/mL)" /> & lt;interpretationCode codeSystem="local" code="*" /> <referenceRange> <observationRange> &lt ;text>NEGATIVE</text> </observationRange> &lt ;/referenceRange> </observation> </component> & lt;component> <observation moodCode="EVN" classCode=&quot ;OBS"> <templateId root="2.16.840.1.867045.10.20.22.4.2 " /> <id nullFlavor="NA" /> <code codeSystem="local" code="PCPU" displayName="UR PHENCYCLIDINE (PCP) SCREEN" /> <statusCode code=" completed" /> <effectiveTime value="987629583644" /> <value unit="" xsi:type="PQ" value=" NEG (< 25 ng/mL)" /> <referenceRange> <observationRange> <text>NEGATIVE</text> </observationRange> </referenceRange> </ observation> </component> <component> < observation moodCode="EVN" classCode="OBS"> < templateId root="2.16.840.1.920605.10.20.22.4.2" /> <id nullFlavor="NA" /> <code codeSystem="local" code="THCU" displayName="UR CANNABINOIDS (THC) SCREEN" /&gt ; <statusCode code="completed" /> < effectiveTime value="311784730706" /><value unit="" xsi:type="PQ" value="NEG (< 50 ng/mL)" /> <referenceRange> <observationRange> < text>NEGATIVE</text> </observationRange> < /referenceRange> </observation> </component> &lt ;component> <observation moodCode="EVN" classCode=" OBS"> <templateId root="2.16.840.1.073544.10.20.22.4.2& quot; /> <id nullFlavor="NA" /> <code codeSystem="local" code="COCAU" displayName="UR COCAINE METABOLITE SCREEN" /> <statusCode code=" completed" /> <effectiveTime value="143676896460" /> <value unit="" xsi:type="PQ" value=" NEG (< 300 ng/mL)" /> <referenceRange> <observationRange> <text>NEGATIVE</text> </observationRange> </referenceRange> </ observation> </component> <component> < observation moodCode="EVN" classCode="OBS"> < templateId root="2.16.840.1.709426.10.20.22.4.2" /> < id nullFlavor="NA" /> <code codeSystem="local&quot ; code="METHU" displayName="UR METHADONE SCREEN" /> & lt;statusCode code="completed" /> <effectiveTime value= "237407206772" /> <value unit="" xsi:type=& quot;PQ" value="NEG (< 300 ng/mL)" /> < referenceRange> <observationRange> <text>NEGATIVE </text> </observationRange> </referenceRange& gt; </observation> </component> <component> <observation moodCode="EVN" classCode="OBS"> <templateId root="2.16.840.1.206795.10.20.22.4.2" /> <id nullFlavor="NA" /> <code codeSystem=&quot ;local" code="BENZU" displayName="UR BENZODIAZEPINE SCREEN& quot; /> <statusCode code="completed" /> & lt;effectiveTime value="238399571240" /> <value unit=& quot;" xsi:type="PQ" value="NEG (< 200 ng/mL)" /> <referenceRange> <observationRange> <text>NEGATIVE</text> </observationRange> </referenceRange> </observation> </component > </organizer> </entry> <entry> <organizer moodCode="EVN" classCode="BATTERY"> <templateId root="2.16.840.1.523619.10.20.22.4.1" /> <id nullFlavor=& quot;NA" /> <code codeSystem="local" code="UC& quot; displayName="URINE CULTURE" /> <statusCode code=&quot ;completed" /> <component> <observation moodCode=& quot;EVN" classCode="OBS"> <templateIdroot=" 2.16.840.1.428191.10.20.22.4.2" /> <id nullFlavor="NA& quot; /> <code codeSystem="local" code="MB" displayName="Microbiology" /> <statusCode code=" completed" /> <effectiveTime value="906604517304" /> <value xsi:type="ST" value="<pre> <b>URINE CULTURE</b> See BelowURINE CULTURE(F) Rishi Date/Time: 08/30/2017 10:30 Radha Date/Time: 09/02/2017 11:27SOURCE: URINESPEC DESC: CLEAN CATCHRESULT CALLED TO STAR BY JANNETH AT 1113, 09/02/17.TREATMENT OF ASYMPTOMATIC BACTERIURIA IS NOT USUALLYCLINICALLY INDICATED.Organism #1 ECOLI EXT.SPECTRUM B- LACTAMASECOLONY COUNT >100,000 CFU/ML COMMENTS (Abnormal) .ORGANISM PRODUCES ESBL AND ALL CEPHALOSPRINS T (Abnormal) COMMENT 2 (Abnormal) .PENICILLINS T AZTREONAM SHOULD BE CONSIDERED RESISTANT (Abnormal) InterpFOSFOMYCIN DISK SAMPICILLIN VITEK >=32 RCEFAZOLIN VITEK >=64 RCEFEPIME VITEK <=1 RCEFTRIAXONE VITEK 16 RCIPROFLOXACIN VITEK >=4 RGENTAMICIN VITEK <=1 SMEROPENEM VITEK<=0.25 SNITROFURANTOIN VITEK <=16 STRIMETH/SULFA VITEK >=[address] [facility] [place] [address]</pre>" /> <referenceRange> <observationRange> <text /> </observationRange> </ referenceRange> </observation></component> </ organizer> </entry> <entry> <organizer moodCode="EVN " classCode="BATTERY"> <templateId root=" 2.16.840.1.971397.10.20.22.4.1" /> <id nullFlavor="NA&quot ; /> <code codeSystem="local" code="GLUMON" displayName="GLUCOSE (POC)" /> <statusCode code=" completed" /> <component> <observation moodCode=& quot;EVN" classCode="OBS"> <templateId root=" 2.16.840.1.626212.10.20.22.4.2" /> <id nullFlavor="NA& quot; /> <code codeSystem="local" code="GLUMON& quot; displayName="GLUCOSE (POC)" /> <statusCode code=& quot;completed" /> <effectiveTime value="606583219002& quot; /> <value unit="mg/dL" xsi:type="PQ" value="149" /> <interpretationCode codeSystem=" local" code="*" /> <referenceRange> < observationRange> <text>70-99</text> < /observationRange> </referenceRange> </observation& gt; </component> </organizer> </entry> <entry&gt ; <organizer moodCode="EVN" classCode="BATTERY"> <templateId root="2.16.840.1.604136.10.20.22.4.1" /><id nullFlavor="NA" /> <code codeSystem="local" code= "AMM" displayName="AMMONIA (NH3)" /> <statusCode code="completed" /> <component> <observation moodCode="EVN" classCode="OBS"> <templateId root ="2.16.840.1.035470.10.20.22.4.2" /> <id nullFlavor=& quot;NA" /> <code codeSystem="local" code=" AMM" displayName="AMMONIA (NH3)" /> <statusCode code="completed" /> <effectiveTime value=" 397967525491" /> <value unit="mcmol/L" xsi:type=& quot;PQ" value="10" /> <interpretationCode codeSystem="local" code="*" /> < referenceRange> <observationRange> <text> 11-32</text> </observationRange> </ referenceRange> </observation> </component> </ organizer> </entry> <entry> <organizer moodCode="EVN " classCode="BATTERY"> <templateId root=" 2.16.840.1.137476.10.20.22.4.1" /> <id nullFlavor="NA&quot ; /> <code codeSystem="local" code="GLUMON" displayName="GLUCOSE (POC)" /> <statusCode code=" completed" /> <component> <observation moodCode="EVN& quot; classCode="OBS"> <templateId root=" 2.16.840.1.118237.10.20.22.4.2" /> <id nullFlavor="NA& quot; /> <code codeSystem="local" code="GLUMON" displayName="GLUCOSE (POC)" /> <statusCode code=" completed" /> <effectiveTime value="686438184668" /> <value unit="mg/dL" xsi:type="PQ" value=& quot;158" /> <interpretationCode codeSystem="local&quot ; code="*" /> <referenceRange> < observationRange> <text>70-99</text> < /observationRange> </referenceRange> </observation& gt; </component> </organizer> </entry> <entry&gt ; <organizer moodCode="EVN" classCode="BATTERY"> <templateId root="2.16.840.1.715950.10.20.22.4.1" /> & lt;id nullFlavor="NA" /> <code codeSystem="local&quot ; code="GLUMON" displayName="GLUCOSE (POC)" /> < statusCode code="completed" /> <component> < observation moodCode="EVN" classCode="OBS"> < templateId root="2.16.840.1.709729.10.20.22.4.2" /> < id nullFlavor="NA" /> <code codeSystem="local&quot ; code="GLUMON" displayName="GLUCOSE (POC)" /> & lt;statusCode code="completed" /> <effectiveTime value= "393679675417" /> <value unit="mg/dL" xsi: type="PQ" value="213" /> <interpretationCode codeSystem="local" code="*" /> < referenceRange> <observationRange> <text> 70-99</text> </observationRange> </referenceRange&gt ; </observation> </component> </organizer> &lt ;/entry> <entry> <organizer moodCode="EVN" classCode=& quot;BATTERY"> <templateId root=" 2.16.840.1.715452.10.20.22.4.1" /> <id nullFlavor="NA&quot ; /> <code codeSystem="local" code="CBCD" displayName="CBC W/DIFF" /> <statusCode code=" completed" /> <component> <observation moodCode=& quot;EVN" classCode="OBS"> <templateId root=" 2.16.840.1.947695.10..22.4.2" /> <id nullFlavor="NA" /& gt; <code codeSystem="local" code="BA#" displayName="BASOPHIL #" /> <statusCode code=" completed"/> <effectiveTime value="272796907984" / > <value unit="k/cumm" xsi:type="PQ" value=& quot;0.0" /> <referenceRange> <observationRange& gt; <text>0.0-0.2</text> </ observationRange> </referenceRange> </observation&gt ; </component> <component> <observation moodCode=& quot;EVN" classCode="OBS"> <templateId root=" 2.16.840.1.558398.10..22.4.2" /> <id nullFlavor="NA& quot; /> <code codeSystem="local" code="BA&#37 ;" displayName="BASOPHIL %" /> < statusCode code="completed" /> <effectiveTime value=& quot;464684658295" /> <value unit="%" xsi: type="PQ" value="0.2" /> <referenceRange> <observationRange> <text>0-1</text> </observationRange> </referenceRange> </ observation> </component> <component> < observation moodCode="EVN" classCode="OBS"> < templateId root="2.16.840.1.387686.10.20.22.4.2" /> < id nullFlavor="NA" /> <code codeSystem="local&quot ; code="EO#" displayName="EOSINOPHIL #" /> < statusCode code="completed" /> <effectiveTime value=& quot;929686885208" /> <value unit="k/cumm" xsi: type="PQ" value="0.2" /> <referenceRange> <observationRange> <text>0.1-0.5</text& gt; </observationRange> </referenceRange> </observation> </component> <component> < observation moodCode="EVN" classCode="OBS"> < templateId root="2.16.840.1.584608.10.20.22.4.2" /> < id nullFlavor="NA" /> <code codeSystem="local" code="EO%" displayName="EOSINOPHIL %" /> <statusCode code="completed" /> < effectiveTime value="284562372711" /> <value unit=&quot ;%" xsi:type="PQ" value="1.9" /> & lt;interpretationCode codeSystem="local" code="*" /> <referenceRange> <observationRange> <text& gt;2-4</text> </observationRange> </ referenceRange> </observation> </component> < component> <observation moodCode="EVN" classCode=" OBS"> <templateId root="2.16.840.1.182460.10.20.22.4.2& quot; /> <id nullFlavor="NA" /> <code codeSystem="local" code="GR#" displayName="GRANULOCYTE #" /> <statusCode code="completed" /> < effectiveTime value="058662368717" /> <value unit=&quot ;k/cumm" xsi:type="PQ" value="5.7"/> < referenceRange> <observationRange> <text> 2.0-9.0</text> </observationRange> </ referenceRange> </observation> </component> < component> <observation moodCode="EVN" classCode=" OBS"> <templateId root="2.16.840.1.262173.10.20.22.4.2& quot; /> <id nullFlavor="NA" /> <code codeSystem="local" code="GR%" displayName=" GRANULOCYTE %" /><statusCode code="completed" /&gt ; <effectiveTime value="663622913799" /> < value unit="%" xsi:type="PQ" value="67.1" /> <referenceRange> <observationRange> <text>50-75</text> </observationRange> </referenceRange> </observation> </component&gt ; <component> <observation moodCode="EVN" classCode="OBS"> <templateId root=" 2.16.840.1.488558.10.20.22.4.2" /> <id nullFlavor="NA& quot; /> <code codeSystem="local" code="LY#" displayName="LYMPHOCYTE #" /> <statusCode code=" completed" /> <effectiveTime value="044345892155" /> <value unit="k/cumm" xsi:type="PQ" value=" 2.0" /> <referenceRange> <observationRange& gt; <text>1.0-4.0</text> </ observationRange> </referenceRange> </observation&gt ; </component> <component> <observation moodCode=& quot;EVN" classCode="OBS"> <templateId root=" 2.16.840.1.910936.10.20.22.4.2" /> <id nullFlavor="NA& quot; /> <code codeSystem="local" code="LY&#37 ;" displayName="LYMPHOCYTE %" /> < statusCode code="completed" /> <effectiveTime value=& quot;514195972218" /> <value unit="%" xsi:type=& quot;PQ" value="23.5" /><referenceRange> < observationRange> <text>20-30</text> < /observationRange> </referenceRange> </observation& gt; </component> <component> <observation moodCode ="EVN" classCode="OBS"> <templateId root=& quot;2.16.840.1.577450.10.20.22.4.2" /> <id nullFlavor=" NA" /> <code codeSystem="local" code="MCH& quot; displayName="MEAN CELL HGB" /> <statusCode code=& quot;completed" /> <effectiveTime value="870834835276& quot; /> <value unit="pg" xsi:type="PQ" value ="26.0" /> <interpretationCode codeSystem="local& quot; code="*" /> <referenceRange> < observationRange> <text>27.0-33.0</text> </observationRange> </referenceRange> </ observation> </component> <component> < observation moodCode="EVN" classCode="OBS"> < templateId root="2.16.840.1.969721.10.20.22.4.2" /> < id nullFlavor="NA" /> <code codeSystem="local&quot ; code="MCHC" displayName="MEAN CELL HGB CONCENTRATION" /&gt ; <statusCode code="completed" /> < effectiveTime value="392794476310" /> <value unit=&quot ;g/dL" xsi:type="PQ" value="31.5" /> < interpretationCode codeSystem="local" code="*" /> <referenceRange> <observationRange> < text>32.0-37.0</text> </observationRange> &lt ;/referenceRange> </observation> </component> & lt;component> <observation moodCode="EVN" classCode="OBS "> <templateId root="2.16.840.1.590690.10.20.22.4.2& quot; /> <id nullFlavor="NA" /> <code codeSystem="local" code="MCV" displayName="MEAN CELL VOLUME" /> <statusCode code="completed" /> <effectiveTime value="363730534863" /> <value unit="fl" xsi:type="PQ" value="82.6" /> <referenceRange> <observationRange> <text> 80.0-100.0</text> </observationRange> </ referenceRange> </observation> </component> < component> <observation moodCode="EVN" classCode=" OBS"> <templateId root="2.16.840.1.011703.10.20.22.4.2& quot; /> <id nullFlavor="NA" /> <code codeSystem="local" code="MO#" displayName="MONOCYTE #& quot; /> <statusCode code="completed" /> < effectiveTime value="786622472115" /> <value unit=&quot ;k/cumm" xsi:type="PQ" value="0.6" /> < referenceRange> <observationRange> <text> 0.1-1.0</text> </observationRange> </ referenceRange> </observation> </component> < component> <observation moodCode="EVN" classCode=" OBS"> <templateId root="2.16.840.1.678020.10..22.4.2& quot; /> <id nullFlavor="NA" /> <code codeSystem="local" code="MO%" displayName=" MONOCYTE %" /> <statusCode code="completed&quot ; /> <effectiveTime value="916187168404" /> <value unit="%" xsi:type="PQ" value="7.1& quot;/> <interpretationCode codeSystem="local" code=& quot;*" /><referenceRange> <observationRange> <text>4-6</text> </observationRange> </referenceRange> </observation> </component> <component> <observation moodCode="EVN" classCode= "OBS"> <templateId root=" 2.16.840.1.864773.10.20.22.4.2" /> <id nullFlavor="NA&quot ; /> <code codeSystem="local" code="MPVT" displayName="MEAN PLATELET VOLUME" /> <statusCode code= "completed" /> <effectiveTime value="981826645533& quot; /> <value unit="fl" xsi:type="PQ" value ="10.6" /> <referenceRange> < observationRange> <text>8.5-10.9</text></ observationRange> </referenceRange> </observation&gt ; </component> <component> <observation moodCode ="EVN" classCode="OBS"> <templateId root=& quot;2.16.840.1.048006.10.20.22.4.2" /> <id nullFlavor=&quot ;NA" /> <code codeSystem="local" code="RBC& quot; displayName="RED BLOOD CELL" /> <statusCode code= "completed" /> <effectiveTime value="621799282953& quot; /> <value unit="m/cumm" xsi:type="PQ" value="4.61" /> <referenceRange> < observationRange> <text>4.00-6.00</text> </observationRange> </referenceRange> </ observation> </component> <component> < observation moodCode="EVN" classCode="OBS"> < templateId root="[id number]" /> < id nullFlavor="NA" /> <code codeSystem="local&quot ; code="RDW" displayName="RED CELL DISTRIBUTION WIDTH" /&gt ; <statusCode code="completed" /> < effectiveTime value="[id number]" /> <value unit=&quot ;%" xsi:type="PQ" value="13.8" /> & lt;referenceRange> <observationRange> <text> 11.0-15.6</text> </observationRange> </ referenceRange> </observation> </component> < component> <observation moodCode="EVN" classCode=" OBS"> <templateId root="[id number]& quot; /> <id nullFlavor="NA" /> <code codeSystem="local" code="WBC" displayName="WHITE BLOOD CELL" /> <statusCode code="completed" /> &lt ;effectiveTime value="513025024556" /> <value unit=& quot;k/cumm" xsi:type="PQ" value="8.5" /> & lt;referenceRange> <observationRange> <text& gt;5.0-10.0</text> </observationRange> </ referenceRange> </observation> </component> < component> <observation moodCode="EVN" classCode=" OBS"> <templateId root="2.16.840.1.106379.10.20.22.4.2& quot; /> <id nullFlavor="NA" /> <code codeSystem="local" code="HGBT" displayName="HEMOGLOBIN& quot; /> <statusCode code="completed" /> & lt;effectiveTime value="435607501641" /> <value unit=& quot;gm/dL" xsi:type="PQ" value="12.0" /> & lt;referenceRange> <observationRange> <text& gt;12.0-16.0</text> </observationRange> </ referenceRange> </observation> </component> < component><observation moodCode="EVN" classCode="OBS"& gt; <templateId root="2.16.840.1.356700.10.20.22.4.2" /&gt ; <id nullFlavor="NA" /> <code codeSystem=" local" code="HCTT" displayName="HEMATOCRIT" /> <statusCode code="completed" /> <effectiveTime value="171719175362" /> <value unit="%& quot; xsi:type="PQ" value="38.1" /> < referenceRange> <observationRange> <text>37.0-47.0&lt ;/text> </observationRange> </referenceRange&gt ; </observation> </component> <component> <observation moodCode="EVN" classCode="OBS"> <templateId root="2.16.840.1.687047.10.20.22.4.2" /> <id nullFlavor="NA" /> <codecodeSystem=" local" code="NRBC%" displayName="NRBC %&quot ; /> <statusCode code="completed" /> < effectiveTime value="935701335151" /> <value unit=&quot ;/100WBC" xsi:type="PQ" value="0.0" /> < referenceRange> <observationRange> <text> 0.0-0.0</text> </observationRange> </ referenceRange> </observation> </component> < component> <observation moodCode="EVN" classCode=" OBS"> <templateId root="2.16.840.1.559046.10.20.22.4.2& quot; /> <id nullFlavor="NA" /> <code codeSystem="local" code="PLTT" displayName="PLATELET COUNT" /> <statusCode code="completed" /> <effectiveTime value="964208863652" /> <value unit="k/cumm" xsi:type="PQ" value="166" /> <referenceRange> <observationRange> & lt;text>150-400</text> </observationRange> & lt;/referenceRange> </observation> </component> <component> <observation moodCode="EVN" classCode=& quot;OBS"> <templateId root=" 2.16.840.1.708309.10.20.22.4.2" /> <id nullFlavor="NA& quot; /> <code codeSystem="local" code="IG&#37 ;" displayName="IMMATURE GRANULOCYTE %" /> < statusCode code="completed" /> <effectiveTime value=& quot;819971952677" /> <value unit="%" xsi: type="PQ" value="0.2" /> <referenceRange> <observationRange> <text>0.0-0.6</text& gt; </observationRange> </referenceRange> &lt ;/observation> </component> <component> < observation moodCode="EVN" classCode="OBS"> < templateId root="2.16.840.1.207292.10.20.22.4.2" /> < id nullFlavor="NA" /> <code codeSystem="local&quot ; code="IG#" displayName="IMMATURE GRANULOCYTE #" /> &lt ;statusCode code="completed" /> <effectiveTime value=& quot;345613909628" /> <value unit="k/cumm" xsi: type="PQ" value="0.02" /> <referenceRange&gt ; <observationRange> <text>0.00-0.09</ text> </observationRange> </referenceRange> </observation> </component> </organizer> </ entry> <entry> <organizer moodCode="EVN" classCode=& quot;BATTERY"> <templateId root=" 2.16.840.1.679021.10.20.22.4.1" /> <id nullFlavor="NA&quot ; /> <code codeSystem="local" code="METAB" displayName="METABOLIC PANEL, BASIC"/> <statusCode code=& quot;completed" /> <component> <observation moodCode="EVN" classCode="OBS"> <templateId root="2.16.840.1.815266.10.20.22.4.2" /> <id nullFlavor ="NA" /> <code codeSystem="local" code=" K" displayName="POTASSIUM" /> <statusCode code=& quot;completed" /> <effectiveTime value="575401594354& quot; /> <value unit="mmol/L" xsi:type="PQ" value="3.8" /> <referenceRange> < observationRange> <text>3.5-5.3</text> & lt;/observationRange> </referenceRange> </ observation> </component> <component> < observation moodCode="EVN" classCode="OBS"> < templateId root="2.16.840.1.905665.10.20.22.4.2" /> < id nullFlavor="NA" /> <code codeSystem="local&quot ; code="eGFR" displayName="EST GFR (MDRD)" /> & lt;statusCode code="completed" /> <effectiveTime value= "692949994873" /> <value unit="mL/min" xsi:type=&quot ;PQ" value="55" /> <interpretationCode codeSystem= "local" code="*" /> <referenceRange> <observationRange> <text>> 59</text&gt ; </observationRange> </referenceRange> & lt;/observation> </component> <component> < observation moodCode="EVN" classCode="OBS"> < templateId root="2.16.840.1.169238.10.20.22.4.2" /> < id nullFlavor="NA" /> <code codeSystem="local&quot ; code="GAP" displayName="ANION GAP" /> < statusCode code="completed" /> <effectiveTime value=" 234134241713" /> <value unit="mmol/L" xsi:type=& quot;PQ" value="9" /> <referenceRange> <observationRange> <text>5-15</text> </observationRange> </referenceRange> </ observation> </component> <component> < observation moodCode="EVN" classCode="OBS"> < templateId root="2.16.840.1.707400.10.20.22.4.2" /> < id nullFlavor="NA" /> <code codeSystem="local&quot ; code="eCrCl" displayName="EST CrCl (CG)" /> & lt;statusCode code="completed" /> <effectiveTime value= "953047673465" /> <value unit="mL/min" xsi: type="PQ" value="59" /> <interpretationCode codeSystem="local" code="*" /> < referenceRange> <observationRange> <text> > 59</text> </observationRange> </ referenceRange> </observation> </component> < component> <observation moodCode="EVN" classCode=" OBS"> <templateId root="2.16.840.1.325383.10.20.22.4.2& quot; /> <id nullFlavor="NA" /> <code codeSystem="local" code="GLU" displayName="GLUCOSE&quot ; /> <statusCode code="completed" /> < effectiveTime value="826534402047"/> <value unit=" mg/dL" xsi:type="PQ" value="163" /> < interpretationCode codeSystem="local" code="*" /> <referenceRange> <observationRange> < text>70-99</text> </observationRange> </ referenceRange> </observation> </component> < component> <observation moodCode="EVN" classCode=" OBS"> <templateId root="2.16.840.1.865033.10.20.22.4.2& quot; /> <id nullFlavor="NA" /> <code codeSystem ="local" code="CA" displayName="CALCIUM" /> <statusCode code="completed" /> < effectiveTime value="727088189159" /> <value unit=&quot ;mg/dL" xsi:type="PQ" value="8.8" /> < referenceRange><observationRange> <text>8.5-10.1< /text> </observationRange> </referenceRange> </observation> </component> <component> <observation moodCode="EVN" classCode="OBS"> < templateId root="2.16.840.1.180280.10.20.22.4.2" /> < id nullFlavor="NA" /> <code codeSystem="local&quot ; code="BUN" displayName="BLOOD UREA NITROGEN" /> <statusCode code="completed" /> <effectiveTime value="152921097003" /> <value unit="mg/dL" xsi:type="PQ" value="14" /> <referenceRange& gt; <observationRange> <text>7-20</text& gt; </observationRange> </referenceRange> </ observation> </component> <component> < observation moodCode="EVN" classCode="OBS"> < templateIdroot="2.16.840.1.329063.10..22.4.2" /> <id nullFlavor="NA" /> <code codeSystem="local" code="CREAT" displayName="CREATININE" /> < statusCode code="completed" /> <effectiveTime value=& quot;437194035769" /> <value unit="mg/dL" xsi:type ="PQ" value="1.0" /> <referenceRange> <observationRange> <text>0.6-1.0</text> </observationRange> </referenceRange> </ observation> </component> <component> < observation moodCode="EVN" classCode="OBS"> < templateId root="2.16.840.1.817728.10..22.4.2" /> < id nullFlavor="NA" /> <codecodeSystem="local&quot ; code="NA" displayName="SODIUM" /> < statusCode code="completed" /> <effectiveTime value=& quot;075976212362" /> <value unit="mmol/L" xsi: type="PQ" value="138" /> <referenceRange> <observationRange> <text>135-148</text&gt ; </observationRange> </referenceRange> & lt;/observation> </component> <component> < observation moodCode="EVN" classCode="OBS"> < templateId root="2.16.840.1.931026.10.20.22.4.2" /> < id nullFlavor="NA" /> <code codeSystem="local&quot ; code="CL" displayName="CHLORIDE" /> < statusCode code="completed" /> <effectiveTime value=& quot;677253028633" /> <value unit="mmol/L" xsi: type="PQ" value="107" /> <referenceRange> <observationRange> <text>98-110</text&gt ; </observationRange> </referenceRange> & lt;/observation> </component> <component> < observation moodCode="EVN" classCode="OBS"> < templateId root="2.16.840.1.812927.10.20.22.4.2" /> < id nullFlavor="NA" /> <code codeSystem="local&quot ; code="CO2" displayName="CARBON DIOXIDE" /> &lt ;statusCode code="completed" /> <effectiveTime value=& quot;871124762004" /> <value unit="mmol/L" xsi: type="PQ" value="22" /> <referenceRange> & lt;observationRange> <text>21-32</text> & lt;/observationRange> </referenceRange> </ observation> </component> </organizer> </entry> & lt;entry> <organizer moodCode="EVN" classCode="BATTERY& quot;> <templateId root="2.16.840.1.475938.10.20.22.4.1" /& gt; <id nullFlavor="NA" /> <code codeSystem=" local" code="MAG" displayName="MAGNESIUM" /> & lt;statusCode code="completed" /> <component> &lt ;observation moodCode="EVN" classCode="OBS"> &lt ;templateId root="2.16.840.1.744194.10.20.22.4.2" /> < id nullFlavor="NA" /> <code codeSystem="local&quot ; code="MAG" displayName="MAGNESIUM" /> < statusCode code="completed" /> <effectiveTime value=& quot;431317706524" /> <value unit="mg/dL" xsi:type ="PQ" value="1.6" /> <interpretationCode codeSystem="local" code="*" /> < referenceRange> <observationRange><text>1.8-2.4</ text> </observationRange> </referenceRange> </observation> </component> </organizer> </ entry> <entry> <organizer moodCode="EVN" classCode=& quot;BATTERY"> <templateId root=" 2.16.840.1.373127.10.20.22.4.1" /> <id nullFlavor="NA&quot ; /> <code codeSystem="local" code="GLUMON" displayName="GLUCOSE (POC)" /> <statusCode code=" completed" /> <component> <observation moodCode=& quot;EVN" classCode="OBS"> <templateId root=" 2.16.840.1.632912.10.20.22.4.2" /> <id nullFlavor="NA& quot; /> <code codeSystem="local" code="GLUMON& quot; displayName="GLUCOSE (POC)" /> <statusCode code=& quot;completed" /> <effectiveTime value="981085145480& quot; /> <value unit="mg/dL" xsi:type="PQ" value="148" /> <interpretationCode codeSystem=" local" code="*" /> <referenceRange> < observationRange> <text>70-99</text> < /observationRange> </referenceRange> </observation& gt; </component> </organizer> </entry> <entry&gt ; <organizer moodCode="EVN" classCode="BATTERY"> <templateId root="2.16.840.1.959247.10.20.22.4.1" /> & lt;id nullFlavor="NA" /> <code codeSystem="local&quot ; code="GLUMON" displayName="GLUCOSE (POC)" /> < statusCode code="completed" /> <component> < observation moodCode="EVN" classCode="OBS"> < templateId root="2.16.840.1.521162.10.20.22.4.2" /> < id nullFlavor="NA" /> <code codeSystem="local&quot ; code="GLUMON" displayName="GLUCOSE (POC)" /> & lt;statusCode code="completed" /> <effectiveTime value= "794547685381" /> <value unit="mg/dL" xsi:type=&quot ;PQ" value="242" /> <interpretationCode codeSystem ="local" code="*" /> <referenceRange> <observationRange> <text>70-99</text> </observationRange> </referenceRange> </ observation> </component> </organizer> </entry> & lt;entry> <organizer moodCode="EVN" classCode="BATTERY& quot;> <templateId root="2.16.840.1.869800.10.20.22.4.1" /& gt; <id nullFlavor="NA" /> <code codeSystem=" local" code="ABG" displayName="ARTERIAL BLOOD GAS" /&gt ; <statusCode code="completed" /> <component> <observation moodCode="EVN" classCode="OBS"> <templateId root="2.16.840.1.679547.10.20.22.4.2" /> <id nullFlavor="NA" /> <code codeSystem=" local" code="TERE" displayName="ABG BASE EXCESS" /> <statusCode code="completed" /> < effectiveTime value="934189690306" /> <value unit=&quot ;meq/L" xsi:type="PQ" value="-3.2" /> < interpretationCode codeSystem="local" code="*" /> <referenceRange> <observationRange> < text>-3.0-3.0</text> </observationRange> </ referenceRange> </observation> </component> < component> <observation moodCode="EVN" classCode=" OBS"> <templateId root="2.16.840.1.929413.10.20.22.4.2& quot; /> <id nullFlavor="NA" /> <code codeSystem="local" code="HCO3A" displayName=" ABGBICARBONATE" /> <statusCode code="completed" /& gt; <effectiveTime value="729787461105" /> &lt ;value unit="meq/L" xsi:type="PQ" value="18.2" /& gt; <interpretationCode codeSystem="local" code="*& quot; /> <referenceRange> <observationRange> <text>23.0-28.0</text> </observationRange> </referenceRange> </observation> </component&gt ; <component> <observation moodCode="EVN" classCode="OBS"> <templateId root=" 2.16.840.1.729311.10.20.22.4.2" /> <id nullFlavor="NA& quot; /> <code codeSystem="local" code="PCO2A&quot ; displayName="ABG PCO2" /><statusCode code="completed&quot ; /> <effectiveTime value="014024970188" /> <value unit="mmHg" xsi:type="PQ" value="24" / > <interpretationCode codeSystem="local" code="*& quot; /> <referenceRange> <observationRange> <text>34-45</text> </observationRange> </referenceRange> </observation></component> <component> <observation moodCode="EVN" classCode ="OBS"> <templateId root=" 2.16.840.1.536374.10.20.22.4.2" /> <id nullFlavor="NA" /> <code codeSystem="local" code="PHAX" displayName="ABG PH" /> <statusCode code=" completed" /> <effectiveTime value="055039837829" /> <value unit="" xsi:type="PQ" value=" 7.50" /> <interpretationCode codeSystem="local" code="*" /> <referenceRange> < observationRange> <text>7.35-7.45</text> </observationRange> </referenceRange> </observation> </component> <component> <observation moodCode= "EVN" classCode="OBS"> <templateId root=&quot ;2.16.840.1.749475.10..22.4.2" /> <id nullFlavor="NA& quot; /> <code codeSystem="local" code="PO2A&quot ; displayName="ABG PO2" /> <statusCode code=" completed" /> <effectiveTime value="873485612302" /> <value unit="mmHg" xsi:type="PQ" value=& quot;32" /> <interpretationCode codeSystem="local&quot ; code=""/> <referenceRange> < observationRange> <text>75-100</text> &lt ;/observationRange> </referenceRange> </observation& gt; </component> <component> <observation moodCode="EVN" classCode="OBS"> <templateId root="2.16.840.1.437825.10..22.4.2" /> <id nullFlavor ="NA" /> <code codeSystem="local" code=" SATA" displayName="ABG O2 SATURATION" /> < statusCode code="completed" /> <effectiveTime value=& quot;013624747475" /> <value unit="%" xsi: type="PQ" value="72" /> <interpretationCode codeSystem="local" code="*" /> < referenceRange> <observationRange> <text> 93-100</text> </observationRange> </referenceRange&gt ; </observation> </component> </organizer> &lt ;/entry> <entry> <organizer moodCode="EVN" classCode=& quot;BATTERY"> <templateId root=" 2.16.840.1.614820.10.20.22.4.1" /> <id nullFlavor="NA&quot ; /> <code codeSystem="local"code="PARA" displayName="PARATHYROID HORMONE (INTACT)" /> < statusCodecode="completed" /> <component> < observation moodCode="EVN" classCode="OBS"> < templateId root="2.16.840.1.177421.10.20.22.4.2" /> < id nullFlavor="NA" /> <code codeSystem="local&quot ; code="PARA" displayName="PARATHYROID HORMONE (INTACT)" /& gt; <statusCode code="completed" /> < effectiveTime value="792432513294" /> <value unit=&quot ;pg/mL" xsi:type="PQ" value="72" /> < referenceRange> <observationRange> <text> 14-85</text> </observationRange> </ referenceRange> </observation> </component> </ organizer> </entry> <entry> <organizer moodCode="EVN " classCode="BATTERY"> <templateId root=" 2.16.840.1.445293.10.20.22.4.1" /> <id nullFlavor="NA&quot ; /> <code codeSystem="local" code="GLUMON" displayName="GLUCOSE (POC)" /> <statusCode code=" completed" /> <component> <observation moodCode=& quot;EVN" classCode="OBS"> <templateId root=" 2.16.840.1.533919.10.20.22.4.2" /> <id nullFlavor="NA& quot; /> <code codeSystem="local" code="GLUMON& quot; displayName="GLUCOSE (POC)" /> <statusCode code=& quot;completed" /> <effectiveTime value="483004800083& quot; /> <value unit="mg/dL" xsi:type="PQ" value=& quot;239" /> <interpretationCode codeSystem="local&quot ; code="*" /> <referenceRange> < observationRange> <text>70-99</text> < /observationRange> </referenceRange> </observation& gt; </component> </organizer> </entry> <entry&gt ; <organizer moodCode="EVN" classCode="BATTERY"> <templateId root="2.16.840.1.881078.10.20.22.4.1" /> & lt;id nullFlavor="NA" /> <code codeSystem="local&quot ; code="GLUMON" displayName="GLUCOSE (POC)" /> < statusCode code="completed" /> <component> < observation moodCode="EVN" classCode="OBS"> < templateId root="2.16.840.1.336124.10.20.22.4.2" /> < id nullFlavor="NA" /> <code codeSystem="local&quot ; code="GLUMON" displayName="GLUCOSE (POC)" /> & lt;statusCode code="completed" /> <effectiveTime value= "316768460904" /> <value unit="mg/dL" xsi: type="PQ" value="254" /> <interpretationCode codeSystem="local" code="*" /> < referenceRange> <observationRange> <text> 70-99</text> </observationRange> </referenceRange&gt ; </observation> </component> </organizer> < /entry> <entry> <organizer moodCode="EVN" classCode=& quot;BATTERY"> <templateId root=" 2.16.840.1.253968.10.20.22.4.1" /> <id nullFlavor="NA&quot ; /> <code codeSystem="local" code="CBCD" displayName="CBC W/DIFF" /> <statusCode code=" completed" /> <component> <observation moodCode=& quot;EVN" classCode="OBS"> <templateId root=" 2.16.840.1.612804.10..22.4.2" /> <id nullFlavor="NA& quot; /> <code codeSystem="local" code="BA#" displayName="BASOPHIL #" /> <statusCode code=" completed" /> <effectiveTime value="356650517429" /> <value unit="k/cumm" xsi:type="PQ" value=& quot;0.0" /> <referenceRange> < observationRange> <text>0.0-0.2</text> </ observationRange> </referenceRange> </observation&gt ; </component> <component> <observation moodCode ="EVN" classCode="OBS"> <templateId root=& quot;2.16.840.1.776969.10.20.22.4.2" /> <id nullFlavor=&quot ;NA" /> <code codeSystem="local" code="BA&amp ;#37;" displayName="BASOPHIL %" /> < statusCode code="completed" /> <effectiveTime value=& quot;762129454448" /> <value unit="%" xsi: type="PQ" value="0.3" /> <referenceRange> <observationRange> <text>0-1</text> </observationRange> </referenceRange> </ observation> </component> <component> < observation moodCode="EVN" classCode="OBS"> < templateId root="2.16.840.1.966019.10.20.22.4.2" /> < id nullFlavor="NA" /> <code codeSystem="local&quot ; code="EO#" displayName="EOSINOPHIL #" /> < statusCode code="completed" /> <effectiveTime value=& quot;089558354477" /> <value unit="k/cumm" xsi: type="PQ" value="0.2" /> <referenceRange> <observationRange> <text>0.1-0.5</text& gt; </observationRange> </referenceRange> </observation> </component> <component> &lt ;observation moodCode="EVN" classCode="OBS"> &lt ;templateId root="2.16.840.1.308950.10.20.22.4.2" /> < id nullFlavor="NA" /> <code codeSystem="local&quot ; code="EO%" displayName="EOSINOPHIL %" /&gt ; <statusCode code="completed" /> < effectiveTime value="967941447643" /> <value unit=&quot ;%" xsi:type="PQ" value="2.8" /> & lt;referenceRange> <observationRange> <text& gt;2-4</text> </observationRange> </ referenceRange> </observation> </component> < component> <observation moodCode="EVN" classCode=" OBS"> <templateId root="2.16.840.1.491609.10.20.22.4.2& quot; /> <id nullFlavor="NA" /> <code codeSystem="local" code="GR#" displayName="GRANULOCYTE #" /> <statusCode code="completed" /> <effectiveTime value="482663145010" /> <value unit=& quot;k/cumm" xsi:type="PQ" value="3.8" /> & lt;referenceRange> <observationRange> <text& gt;2.0-9.0</text> </observationRange> </ referenceRange> </observation> </component> < component> <observation moodCode="EVN" classCode=" OBS"> <templateId root="2.16.840.1.658972.10.20.22.4.2& quot; /> <id nullFlavor="NA" /> <code codeSystem="local" code="GR%" displayName=" GRANULOCYTE %" /> <statusCode code="completed& quot; /> <effectiveTime value="653060406729" /> <value unit="%" xsi:type="PQ" value=" 58.7" /> <referenceRange> <observationRange > <text>50-75</text> </observationRange& gt; </referenceRange> </observation></component& gt; <component> <observation moodCode="EVN" classCode="OBS"> <templateId root=" 2.16.840.1.093547.10.20.22.4.2" /> <id nullFlavor="NA" /> <code codeSystem="local" code="LY#" displayName="LYMPHOCYTE #" /> <statusCode code=" completed" /> <effectiveTime value="343966065539" /> <value unit="k/cumm" xsi:type="PQ" value=& quot;2.0" /> <referenceRange> < observationRange> <text>1.0-4.0</text> & lt;/observationRange> </referenceRange> </ observation> </component> <component> < observation moodCode="EVN" classCode="OBS"> < templateId root="2.16.840.1.557234.10.20.22.4.2" /> < id nullFlavor="NA" /> <code codeSystem="local&quot ; code="LY%" displayName="LYMPHOCYTE %" /&gt ; <statusCode code="completed" /> < effectiveTime value="355356563516" /> <value unit=&quot ;%" xsi:type="PQ" value="30.5" /> & lt;interpretationCode codeSystem="local" code="*" /> <referenceRange> <observationRange> & lt;text>20-30</text> </observationRange> < /referenceRange> </observation> </component> &lt ;component> <observation moodCode="EVN" classCode=" OBS"> <templateId root="2.16.840.1.557106.10.20.22.4.2& quot; /> <id nullFlavor="NA" /> <code codeSystem="local" code="MCH" displayName="MEAN CELL HGB" /> <statusCode code="completed" /> <effectiveTime value="552704446730" /> <value unit="pg" xsi:type="PQ" value="25.5" /> <interpretationCode codeSystem="local" code="*" /> <referenceRange> <observationRange> <text>27.0-33.0</text> </observationRange> </referenceRange> </observation> </component&gt ; <component> <observation moodCode="EVN" classCode="OBS"> <templateId root=" 2.16.840.1.073615.10.20.22.4.2" /> <id nullFlavor="NA& quot; /> <code codeSystem="local" code="MCHC&quot ; displayName="MEAN CELL HGB CONCENTRATION" /> < statusCode code="completed" /> <effectiveTime value=& quot;337330189050" /> <value unit="g/dL" xsi:type= "PQ" value="31.1" /> <interpretationCode codeSystem="local" code="*" /> < referenceRange> <observationRange> <text> 32.0-37.0</text> </observationRange> </ referenceRange> </observation> </component> < component> <observation moodCode="EVN" classCode=" OBS"> <templateId root="2.16.840.1.012131.10.20.22.4.2& quot; /> <id nullFlavor="NA" /> <code codeSystem="local" code="MCV" displayName="MEAN CELL VOLUME" /> <statusCodecode="completed" /> <effectiveTime value="345599784474" /> <value unit=& quot;fl" xsi:type="PQ" value="81.8" /> < referenceRange> <observationRange> <text> 80.0-100.0</text> </observationRange> </ referenceRange> </observation> </component> < component> <observation moodCode="EVN" classCode=" OBS"> <templateId root="2.16.840.1.435968.10.20.22.4.2& quot; /> <id nullFlavor="NA" /> <code codeSystem="local" code="MO#" displayName="MONOCYTE #& quot; /> <statusCode code="completed" /> & lt;effectiveTime value="721127963392" /> <value unit=& quot;k/cumm" xsi:type="PQ" value="0.5" /> & lt;referenceRange> <observationRange> <text& gt;0.1-1.0</text> </observationRange> </ referenceRange> </observation> </component> < component> <observation moodCode="EVN" classCode=" OBS"> <templateId root="2.16.840.1.001362.10..22.4.2& quot; /> <id nullFlavor="NA" /> <code codeSystem="local" code="MO%" displayName=" MONOCYTE %" /> <statusCode code="completed&quot ; /> <effectiveTime value="836230619830" /> <value unit="%" xsi:type="PQ" value="7.4& quot; /> <interpretationCode codeSystem="local" code=& quot;*" /> <referenceRange> < observationRange> <text>4-6</text> </ observationRange> </referenceRange> </observation&gt ; </component> <component> <observation moodCode ="EVN" classCode="OBS"> <templateId root=& quot;[id number]" /> <id nullFlavor=&quot ;NA" /> <code codeSystem="local" code="MPVT& quot; displayName="MEANPLATELET VOLUME" /> <statusCode code="completed" /> <effectiveTime value=" [id number]" /> <value unit="fl" xsi:type=" PQ" value="10.2" /> <referenceRange> <observationRange> <text>8.5-10.9</text> </observationRange> </referenceRange> </ observation> </component> <component> < observation moodCode="EVN" classCode="OBS"> < templateId root="[id number]" /> < id nullFlavor="NA" /> <code codeSystem="local" code="RBC" displayName="RED BLOOD CELL" /> < statusCode code="completed" /> <effectiveTime value=& quot;[id number]" /> <value unit="m/cumm" xsi: type="PQ" value="4.40" /> <referenceRange&gt ; <observationRange> <text>4.00-6.00</text> </observationRange> </referenceRange> </ observation> </component> <component> < observation moodCode="EVN" classCode="OBS"> < templateId root="2.16.840.1.548325.10.20.22.4.2" /> < id nullFlavor="NA" /> <code codeSystem="local&quot ; code="RDW" displayName="RED CELL DISTRIBUTION WIDTH" /&gt ; <statusCode code="completed" /> < effectiveTime value="204666761508" /> <value unit=&quot ;%" xsi:type="PQ" value="13.9" /> & lt;referenceRange> <observationRange> <text> 11.0-15.6</text> </observationRange> </ referenceRange> </observation> </component> < component> <observation moodCode="EVN" classCode=" OBS"> <templateId root="2.16.840.1.076331.10.20.22.4.2& quot; /> <id nullFlavor="NA" /> <code codeSystem="local" code="WBC" displayName="WHITE BLOOD CELL" /> <statusCode code="completed" /> <effectiveTime value="138358509321" /> <value unit="k/cumm" xsi:type="PQ" value="6.5" /> <referenceRange> <observationRange> & lt;text>5.0-10.0</text> </observationRange> & lt;/referenceRange> </observation> </component> & lt;component> <observation moodCode="EVN" classCode=&quot ;OBS"> <templateId root="2.16.840.1.318256.10.20.22.4.2 " /> <id nullFlavor="NA" /> <code codeSystem="local" code="HGBT" displayName="HEMOGLOBIN& quot; /> <statusCode code="completed" /> & lt;effectiveTime value="029960441532" /> <value unit=& quot;gm/dL" xsi:type="PQ" value="11.2" /> < interpretationCode codeSystem="local" code="*" /> <referenceRange> <observationRange> < text>12.0-16.0</text> </observationRange> </ referenceRange> </observation></component> < component> <observation moodCode="EVN" classCode=" OBS"> <templateId root="2.16.840.1.155190.10.20.22.4.2& quot; /> <id nullFlavor="NA" /> <code codeSystem="local" code="HCTT" displayName="HEMATOCRIT& quot; /> <statusCode code="completed" /> & lt;effectiveTime value="516675346607" /> <value unit=& quot;%" xsi:type="PQ" value="36.0" /> <interpretationCode codeSystem="local" code="*" /&gt ; <referenceRange> <observationRange> <text>37.0-47.0</text> </observationRange> </referenceRange> </observation> </component&gt ; <component> <observation moodCode="EVN" classCode="OBS"><templateId root=" 2.16.840.1.465250.10.20.22.4.2" /> <id nullFlavor="NA& quot; /> <code codeSystem="local" code="NRBC&# 37;" displayName="NRBC %" /> <statusCode code="completed" /> <effectiveTime value="025323634841& quot; /> <value unit="/100WBC" xsi:type="PQ" value="0.0" /> <referenceRange> < observationRange> <text>0.0-0.0</text> & lt;/observationRange> </referenceRange> </ observation> </component> <component> < observation moodCode="EVN" classCode="OBS"> < templateId root="2.16.840.1.972920.10.20.22.4.2" /> < id nullFlavor="NA" /> <code codeSystem="local&quot ; code="PLTT" displayName="PLATELET COUNT" /> & lt;statusCode code="completed" /> <effectiveTime value= "737119235559" /> <value unit="k/cumm" xsi: type="PQ" value="150" /> <referenceRange> <observationRange> <text>150-400</text& gt; </observationRange> </referenceRange> </observation> </component> <component> < observation moodCode="EVN" classCode="OBS"> < templateId root="2.16.840.1.473438.10.20.22.4.2" /> < id nullFlavor="NA" /> <code codeSystem="local" code="IG%" displayName="IMMATURE GRANULOCYTE %& quot; /> <statusCode code="completed" /> & lt;effectiveTime value="399516249243" /> <value unit=& quot;%" xsi:type="PQ" value="0.3" /> <referenceRange> <observationRange> < text>0.0-0.6</text> </observationRange> </ referenceRange> </observation> </component> < component> <observation moodCode="EVN" classCode=" OBS"> <templateId root="2.16.840.1.867946.10.20.22.4.2& quot; /> <id nullFlavor="NA" /> <code codeSystem="local" code="IG#" displayName="IMMATURE GRANULOCYTE #" /> <statusCode code="completed" /& gt; <effectiveTime value="941511090610" /> &lt ;value unit="k/cumm" xsi:type="PQ" value="0.02" /& gt; <referenceRange> <observationRange> <text>0.00-0.09</text> </observationRange> & lt;/referenceRange> </observation> </component> & lt;/organizer></entry> <entry> <organizer moodCode=" EVN" classCode="BATTERY"> <templateId root=" 2.16.840.1.804715.10.20.22.4.1" /> <id nullFlavor="NA&quot ; /> <code codeSystem="local" code="METAB" displayName="METABOLIC PANEL, BASIC" /> <statusCode code=& quot;completed" /> <component> <observation moodCode="EVN" classCode="OBS"> <templateId root=&quot ;2.16.840.1.380898.10.20.22.4.2" /> <id nullFlavor="NA& quot; /> <code codeSystem="local" code="K" displayName="POTASSIUM" /> <statusCode code=" completed" /> <effectiveTime value="460765701570" /> <value unit="mmol/L" xsi:type="PQ" value=& quot;3.4" /> <interpretationCode codeSystem="local&quot ; code="*" /> <referenceRange> < observationRange> <text>3.5-5.3</text> </ observationRange> </referenceRange> </observation&gt ; </component> <component> <observationmoodCode= "EVN" classCode="OBS"> <templateId root=&quot ;2.16.840.1.362905.10.20.22.4.2" /> <id nullFlavor="NA& quot; /> <code codeSystem="local" code="eGFR&quot ; displayName="EST GFR (MDRD)" /> <statusCode code=" completed" /> <effectiveTime value="464047579766" /> <value unit="mL/min" xsi:type="PQ" value=& quot;> 60" /> <referenceRange> < observationRange> <text>> 59</text> </observationRange> </referenceRange> </ observation> </component> <component> < observation moodCode="EVN" classCode="OBS"> < templateId root="2.16.840.1.301210.10.20.22.4.2" /> < id nullFlavor="NA" /> <code codeSystem="local&quot ; code="GAP" displayName="ANION GAP" /> < statusCode code="completed" /> <effectiveTime value=& quot;711512967715" /> <value unit="mmol/L" xsi: type="PQ" value="10" /> <referenceRange> <observationRange> <text>5-15</text> </observationRange> </referenceRange> </ observation> </component> <component> < observation moodCode="EVN" classCode="OBS"> < templateId root="2.16.840.1.054111.10.20.22.4.2" /> < id nullFlavor="NA" /> <code codeSystem="local&quot ; code="eCrCl" displayName="EST CrCl (CG)" /> & lt;statusCode code="completed" /> <effectiveTime value= "964762646374" /> <value unit="mL/min" xsi: type="PQ" value="> 60" /> < referenceRange> <observationRange> <text> > 59</text> </observationRange> </ referenceRange> </observation> </component> < component> <observation moodCode="EVN" classCode=" OBS"> <templateId root="2..840.1.154117.10..22.4.2& quot; /> <id nullFlavor="NA" /> <code codeSystem="local" code="GLU" displayName="GLUCOSE&quot ; /> <statusCode code="completed" /> < effectiveTime value="368819664343" /> <value unit=&quot ;mg/dL" xsi:type="PQ" value="161" /> < interpretationCode codeSystem="local" code="*" /> <referenceRange> <observationRange> < text>70-99</text> </observationRange> </ referenceRange> </observation> </component> < component> <observation moodCode="EVN" classCode=" OBS"> <templateId root="2.16.840.1.179616.10.20.22.4.2& quot; /> <id nullFlavor="NA" /> <code codeSystem="local" code="CA" displayName="CALCIUM&quot ; /> <statusCode code="completed" /> < effectiveTime value="945426511237" /> <value unit=&quot ;mg/dL" xsi:type="PQ" value="8.0" /> < interpretationCode codeSystem="local" code="*" /> <referenceRange> <observationRange> < text>8.5-10.1</text> </observationRange> < /referenceRange></observation> </component> < component> <observation moodCode="EVN" classCode=" OBS"> <templateId root="2.16.840.1.571664.10.20.22.4.2& quot; /> <id nullFlavor="NA" /> <code codeSystem="local" code="BUN" displayName="BLOOD UREA NITROGEN" /> <statusCode code="completed" /> <effectiveTime value="582156378126"/> < value unit="mg/dL" xsi:type="PQ" value="10" /> <referenceRange> <observationRange> & lt;text>7-20</text> </observationRange> </ referenceRange> </observation> </component> < component> <observation moodCode="EVN" classCode=" OBS"> <templateId root="2.16.840.1.031938.10..22.4.2& quot;/> <id nullFlavor="NA" /> <code codeSystem="local"code="CREAT" displayName="CREATININE& quot; /> <statusCode code="completed" /> & lt;effectiveTime value="497607211477" /> <value unit=& quot;mg/dL" xsi:type="PQ" value="0.9" /> & lt;referenceRange> <observationRange> <text& gt;0.6-1.0</text></observationRange> </referenceRange&gt ; </observation> </component> <component> <observation moodCode="EVN" classCode="OBS"> <templateId root="2.16.840.1.024025.10..22.4.2" /> <id nullFlavor="NA" /> <code codeSystem=" local" code="NA" displayName="SODIUM" /> & lt;statusCode code="completed" /> <effectiveTime value=" 918424001899" /> <value unit="mmol/L"xsi:type=& quot;PQ" value="138" /> <referenceRange> <observationRange> <text>135-148</text> </observationRange> </referenceRange> </ observation> </component> <component> < observation moodCode="EVN" classCode="OBS"> < templateId root="2.16.840.1.580047.10.20.22.4.2" /> < id nullFlavor="NA" /> <code codeSystem="local&quot ; code="CL" displayName="CHLORIDE" /> < statusCode code="completed" /> <effectiveTime value=& quot;821611657601" /> <value unit="mmol/L" xsi: type="PQ" value="107" /> <referenceRange> <observationRange> <text>98-110</text> </observationRange> </referenceRange> </ observation> </component> <component> < observation moodCode="EVN" classCode="OBS"> < templateId root="2.16.840.1.845843.10.20.22.4.2" /> < id nullFlavor="NA" /> <code codeSystem="local&quot ; code="CO2" displayName="CARBON DIOXIDE" /> < statusCode code="completed" /> <effectiveTime value=& quot;349717716944" /> <value unit="mmol/L" xsi: type="PQ" value="21" /> <referenceRange> <observationRange> <text>21-32</text> </observationRange> </referenceRange> & lt;/observation> </component> </organizer> </entry&gt ; <entry> <organizer moodCode="EVN" classCode=" BATTERY"> <templateId root="2.16.840.1.816160.10.20.22.4.1& quot; /> <id nullFlavor="NA" /> <code codeSystem ="local" code="LIVER" displayName="HEPATIC FUNCTION PANEL" /> <statusCode code="completed" /> < component> <observation moodCode="EVN" classCode=" OBS"> <templateId root="2.16.840.1.319011.10..22.4.2& quot; /> <id nullFlavor="NA" /> < codecodeSystem="local" code="BILUC" displayName="BILI UNCONJUGATED" /> <statusCode code="completed" /> <effectiveTime value="184424498384" /> < value unit="mg/dL" xsi:type="PQ" value="0.6" /&gt ; <referenceRange> <observationRange> <text>0.0-0.7</text> </observationRange> </referenceRange> </observation> </component> & lt;component> <observation moodCode="EVN" classCode=&quot ;OBS"> <templateId root="2.16.840.1.478080.10..22.4.2 " /> <id nullFlavor="NA" /> <code codeSystem="local" code="AST" displayName="AST/SGOT& quot; /> <statusCodecode="completed" /> &lt ;effectiveTime value="078341895714" /> <value unit=" Units/L" xsi:type="PQ" value="16" /> < referenceRange> <observationRange> <text> 10-37</text> </observationRange> </ referenceRange> </observation> </component> < component> <observation moodCode="EVN" classCode=" OBS"> <templateId root="2.16.840.1.184122.10.20.22.4.2& quot; /> <id nullFlavor="NA" /> <code codeSystem="local" code="ALT" displayName="ALT/SGPT& quot; /> <statusCode code="completed" /> & lt;effectiveTime value="785329790626" /> <value unit=& quot;Units/L" xsi:type="PQ" value="21" /> & lt;referenceRange> <observationRange> <text> < 66</text> </observationRange> </ referenceRange> </observation> </component> < component> <observation moodCode="EVN" classCode=" OBS"> <templateId root="2.16.840.1.328148.10.20.22.4.2& quot; /> <id nullFlavor="NA" /> <code codeSystem="local" code="TP" displayName="TOTAL PROTEIN " /> <statusCode code="completed" /> < effectiveTime value="712577113647" /> <value unit=&quot ;gm/dL"xsi:type="PQ" value="6.5" /> < referenceRange> <observationRange> <text> 6.4-8.2</text> </observationRange> </ referenceRange> </observation> </component> < component> <observation moodCode="EVN" classCode=" OBS"> <templateId root="2.16.840.1.810303.10.20.22.4.2& quot; /> <id nullFlavor="NA" /> <code codeSystem="local" code="ALB" displayName="ALBUMIN&quot ; /> <statusCode code="completed" /> < effectiveTime value="797587164669" /> <value unit=&quot ;gm/dL" xsi:type="PQ"value="3.3" /> < interpretationCode codeSystem="local" code="*" /> <referenceRange> <observationRange> < text>3.4-5.0</text> </observationRange> </ referenceRange> </observation> </component> < component> <observation moodCode="EVN" classCode=" OBS"> <templateId root="2.16.840.1.139213.10.20.22.4.2& quot; /> <id nullFlavor="NA" /> <code codeSystem="local" code="BILTOT" displayName="BILI TOTAL" /> <statusCode code="completed" /> <effectiveTime value="581752955335" /> <value unit="mg/dL" xsi:type="PQ" value="0.7" /> & lt;referenceRange> <observationRange> <text& gt;0.0-1.0</text> </observationRange> </ referenceRange> </observation> </component> < component> <observation moodCode="EVN" classCode=" OBS"> <templateId root="2.16.840.1.740059.10.20.22.4.2& quot;/> <id nullFlavor="NA" /> <code codeSystem="local"code="ALKP" displayName="ALKALINE PHOSPHATASE TOTAL" /> <statusCode code="completed&quot ; /> <effectiveTime value="670956393326" /> & lt;value unit="IU/L" xsi:type="PQ" value="79" /&gt ; <referenceRange> <observationRange> <text>45-117</text> </observationRange> </referenceRange> </observation> </component> <component> <observation moodCode="EVN" classCode=& quot;OBS"> <templateId root=" 2.16.840.1.864932.10.20.22.4.2" /> <id nullFlavor="NA& quot; /> <code codeSystem="local" code="BILC&quot ; displayName="BILI CONJUGATED" /> <statusCode code=& quot;completed" /> <effectiveTime value="470165054141& quot; /> <value unit="mg/dL" xsi:type="PQ" value="0.1" /> <referenceRange> < observationRange> <text>0.0-0.3</text> & lt;/observationRange> </referenceRange> </ observation> </component> </organizer> </entry> & lt;entry> <organizer moodCode="EVN" classCode="BATTERY& quot;> <templateId root="2.16.840.1.456728.10.20.22.4.1" /& gt; <id nullFlavor="NA" /> <code codeSystem=" local" code="PHOS" displayName="PHOSPHORUS" /> <statusCode code="completed" /> <component> & lt;observation moodCode="EVN" classCode="OBS"> & lt;templateId root="2.16.840.1.721055.10.20.22.4.2" /> &lt ;id nullFlavor="NA" /> <code codeSystem="local& quot; code="PHOS" displayName="PHOSPHORUS" /> & lt;statusCode code="completed" /> <effectiveTime value=& quot;756011936184" /> <value unit="mg/dL" xsi:type ="PQ" value="2.3" /> <interpretationCode codeSystem="local" code="*" /> < referenceRange> <observationRange> <text> 2.5-4.9</text> </observationRange> </ referenceRange> </observation> </component> </ organizer> </entry> <entry> <organizer moodCode="EVN " classCode="BATTERY"> <templateId root=" 2.16.840.1.544283.10.20.22.4.1" /> <id nullFlavor="NA&quot ; /> <code codeSystem="local" code="MAG" displayName="MAGNESIUM" /> <statusCode code="completed " /> <component> <observation moodCode="EVN" classCode="OBS"> <templateId root=" 2.16.840.1.673406.10.20.22.4.2" /> <id nullFlavor="NA& quot; /> <code codeSystem="local" code="MAG" displayName="MAGNESIUM"/> <statusCode code=" completed" /> <effectiveTime value="172540671165" /> <value unit="mg/dL" xsi:type="PQ" value=& quot;1.7" /> <interpretationCode codeSystem="local&quot ; code="*" /> <referenceRange> < observationRange> <text>1.8-2.4</text> & lt;/observationRange> </referenceRange> </ observation> </component> </organizer> </entry> & lt;entry> <organizer moodCode="EVN" classCode="BATTERY& quot;> <templateId root="2.16.840.1.926731.10.20.22.4.1" /& gt; <id nullFlavor="NA" /> <code codeSystem=" local" code="GLUMON" displayName="GLUCOSE (POC)" /> <statusCode code="completed" /> <component> <observation moodCode="EVN" classCode="OBS"> <templateId root="2.16.840.1.123213.10.20.22.4.2" /> <id nullFlavor="NA" /> <code codeSystem=" local" code="GLUMON" displayName="GLUCOSE (POC)" /> <statusCode code="completed" /> < effectiveTime value="674541870089" /> <value unit=&quot ;mg/dL" xsi:type="PQ" value="160" /> < interpretationCode codeSystem="local" code="*" /> <referenceRange> <observationRange> < text>70-99</text> </observationRange> </ referenceRange> </observation> </component> </ organizer> </entry> <entry> <organizer moodCode="EVN " classCode="BATTERY"> <templateId root=" 2.16.840.1.890087.10.20.22.4.1" /> <id nullFlavor="NA&quot ; /> <code codeSystem="local"code="GLUMON" displayName="GLUCOSE (POC)" /> <statusCode code=" completed" /> <component> <observation moodCode=& quot;EVN" classCode="OBS"> <templateId root=" 2.16.840.1.725915.10.20.22.4.2" /> <id nullFlavor="NA&quot ; /> <code codeSystem="local" code="GLUMON" displayName="GLUCOSE (POC)" /> <statusCode code=" completed" /> <effectiveTime value="837650670298" /> <value unit="mg/dL" xsi:type="PQ" value=& quot;166" /> <interpretationCode codeSystem="local&quot ; code="*" /> <referenceRange> < observationRange> <text>70-99</text> < /observationRange> </referenceRange> </observation& gt; </component> </organizer> </entry> <entry&gt ; <organizer moodCode="EVN" classCode="BATTERY"> <templateId root="2.16.840.1.797438.10.20.22.4.1" /> & lt;id nullFlavor="NA" /> <code codeSystem="local&quot ; code="GLUMON" displayName="GLUCOSE (POC)" /> < statusCode code="completed" /><component> < observation moodCode="EVN" classCode="OBS"> < templateId root="2.16.840.1.720978.10.20.22.4.2" /> < id nullFlavor="NA" /> <code codeSystem="local&quot ; code="GLUMON" displayName="GLUCOSE (POC)" /> & lt;statusCode code="completed" /> <effectiveTime value= "086853988201" /> <value unit="mg/dL" xsi: type="PQ" value="194" /> <interpretationCode codeSystem="local" code="*" /> < referenceRange> <observationRange> <text>70 -99</text> </observationRange> </ referenceRange> </observation> </component> </ organizer> </entry> <entry> <organizer moodCode="EVN " classCode="BATTERY"> <templateId root=" 2.16.840.1.336803.10.20.22.4.1" /> <id nullFlavor="NA&quot ; /> <code codeSystem="local" code="GLUMON" displayName="GLUCOSE(POC)" /> <statusCode code=" completed" /> <component><observation moodCode="EVN& quot; classCode="OBS"> <templateId root=" 2.16.840.1.583589.10.20.22.4.2" /> <id nullFlavor="NA& quot; /> <code codeSystem="local" code="GLUMON" displayName="GLUCOSE (POC)" /> <statusCode code=" completed" /> <effectiveTime value="376507962905" /> <value unit="mg/dL" xsi:type="PQ" value=& quot;140" /> <interpretationCode codeSystem="local&quot ; code="*" /> <referenceRange> < observationRange> <text>70-99</text> < /observationRange> </referenceRange> </observation& gt; </component> </organizer> </entry> <entry&gt ; <organizer moodCode="EVN" classCode="BATTERY"> <templateId root="2.16.840.1.377564.10.20.22.4.1" /> & lt;id nullFlavor="NA" /> <code codeSystem="local&quot ; code="CBCD" displayName="CBC W/DIFF" /> < statusCode code="completed" /> <component> < observation moodCode="EVN" classCode="OBS"> < templateId root="2.16.840.1.293373.10.20.22.4.2" /> < id nullFlavor="NA" /> <code codeSystem="local&quot ; code="BA#" displayName="BASOPHIL #" /> < statusCode code="completed" /> <effectiveTime value=& quot;233962884027" /> <value unit="k/cumm" xsi:type=" PQ" value="0.0" /> <referenceRange> <observationRange> <text>0.0-0.2</text> </observationRange> </referenceRange> </ observation> </component> <component> < observation moodCode="EVN" classCode="OBS"> < templateId root="2.16.840.1.376078.10.20.22.4.2" /> <id nullFlavor="NA" /> <code codeSystem="local" code="BA%" displayName="BASOPHIL %" /> <statusCode code="completed" /> < effectiveTime value="461027195870" /> <value unit=&quot ;%" xsi:type="PQ" value="0.3" /> & lt;referenceRange> <observationRange> <text& gt;0-1</text> </observationRange> </referenceRange& gt; </observation> </component> <component> <observation moodCode="EVN" classCode="OBS"> <templateId root="2.16.840.1.127142.10.20.22.4.2" /> & lt;id nullFlavor="NA" /> <code codeSystem="local& quot; code="EO#" displayName="EOSINOPHIL #" /> & lt;statusCode code="completed" /> <effectiveTime value= "857322449113" /> <value unit="k/cumm" xsi: type="PQ" value="0.2" /> <referenceRange> <observationRange> <text>0.1-0.5</text> </observationRange> </referenceRange> < /observation> </component> <component> < observation moodCode="EVN" classCode="OBS"> < templateId root="2.16.840.1.498072.10.20.22.4.2" /> < id nullFlavor="NA" /> <code codeSystem="local&quot ; code="EO%" displayName="EOSINOPHIL %" /&gt ; <statusCode code="completed" /> < effectiveTime value="963102661740" /> <value unit=&quot ;%" xsi:type="PQ" value="2.6" /> & lt;referenceRange> <observationRange> <text>2 -4</text> </observationRange> </ referenceRange> </observation> </component>< component> <observation moodCode="EVN" classCode=" OBS"> <templateId root="2.16.840.1.289212.10.20.22.4.2" /> <id nullFlavor="NA" /> <code codeSystem="local" code="GR#" displayName="GRANULOCYTE #" /> <statusCode code="completed" /> <effectiveTime value="802710983005" /> <value unit=& quot;k/cumm" xsi:type="PQ" value="4.6" /> & lt;referenceRange> <observationRange> <text& gt;2.0-9.0</text> </observationRange> </ referenceRange> </observation> </component> < component> <observation moodCode="EVN" classCode=" OBS"> <templateId root="2.16.840.1.219551.10.20.22.4.2& quot; /> <id nullFlavor="NA" /> <code codeSystem="local" code="GR%" displayName=" GRANULOCYTE %" /> <statusCode code="completed& quot; /> <effectiveTime value="469027180845" /> <value unit="%" xsi:type="PQ" value=" 61.5" /> <referenceRange> <observationRange > <text>50-75</text> </ observationRange> </referenceRange> </observation> </component> <component> <observation moodCode=& quot;EVN" classCode="OBS"> <templateId root=" 2.16.840.1.356156.10.20.22.4.2" /> <id nullFlavor="NA& quot; /> <code codeSystem="local" code="LY#" displayName="LYMPHOCYTE#" /> <statusCode code=" completed" /> <effectiveTime value="328125088128" /> <value unit="k/cumm" xsi:type="PQ"value=& quot;2.0" /> <referenceRange> < observationRange> <text>1.0-4.0</text> </ observationRange> </referenceRange> </observation&gt ; </component> <component> <observation moodCode ="EVN" classCode="OBS"> <templateId root=& quot;2.16.840.1.940563.10.20.22.4.2" /> <id nullFlavor=&quot ;NA" /> <code codeSystem="local" code="LY&amp ;#37;" displayName="LYMPHOCYTE %" /> < statusCode code="completed" /> <effectiveTime value=& quot;287840978917" /> <value unit="%" xsi: type="PQ" value="26.8" /> <referenceRange&gt ; <observationRange> <text>20-30</text> </observationRange> </referenceRange> < /observation> </component> <component> < observation moodCode="EVN" classCode="OBS"> < templateId root="2.16.840.1.375970.10..22.4.2" /> < id nullFlavor="NA" /> <code codeSystem="local&quot ; code="MCH" displayName="MEAN CELL HGB" /> < statusCode code="completed" /> <effectiveTime value=& quot;922369412248" /> <value unit="pg" xsi:type=& quot;PQ" value="26.5" /> <interpretationCode codeSystem="local" code="*" /> <referenceRange> <observationRange> <text>27.0-33.0</text& gt; </observationRange> </referenceRange> </observation> </component> <component> &lt ;observation moodCode="EVN" classCode="OBS"> &lt ;templateId root="2.16.840.1.692947.10.20.22.4.2"/> < id nullFlavor="NA" /> <code codeSystem="local&quot ;code="MCHC" displayName="MEAN CELL HGB CONCENTRATION" /&gt ; <statusCode code="completed" /> < effectiveTime value="854900018383" /> <value unit="g /dL" xsi:type="PQ" value="32.7" /> < referenceRange> <observationRange> <text> 32.0-37.0</text> </observationRange> </ referenceRange> </observation> </component> < component> <observation moodCode="EVN" classCode=" OBS"> <templateId root="[id number]& quot; /> <id nullFlavor="NA" /> <code codeSystem="local" code="MCV" displayName="MEAN CELL VOLUME" /> <statusCode code="completed" /> <effectiveTime value="[id number]" /> <value unit="fl" xsi:type="PQ" value="81.1" /> <referenceRange> <observationRange> < text>80.0-100.0</text> </observationRange> </ referenceRange> </observation> </component> < component> <observation moodCode="EVN" classCode=" OBS"> <templateId root="[id number]& quot; /><id nullFlavor="NA" /> <code codeSystem=& quot;local" code="MO#" displayName="MONOCYTE #" /> <statusCode code="completed" /> < effectiveTime value="[id number]" /> <value unit=&quot ;k/cumm" xsi:type="PQ" value="0.6" /> < referenceRange> <observationRange> <text>0.1-1.0& lt;/text> </observationRange> </referenceRange& gt; </observation> </component> <component> <observation moodCode="EVN" classCode="OBS"> <templateId root="2.16.840.1.296049.10.20.22.4.2" /> & lt;id nullFlavor="NA" /> <code codeSystem="local& quot; code="MO%" displayName="MONOCYTE %" /& gt; <statusCode code="completed" /> < effectiveTime value="422382662678" /> <value unit=&quot ;%" xsi:type="PQ" value="8.5" /> & lt;interpretationCode codeSystem="local" code="*" /> <referenceRange> <observationRange> & lt;text>4-6</text> </observationRange> </ referenceRange> </observation> </component> < component> <observation moodCode="EVN" classCode="OBS& quot;> <templateId root="2.16.840.1.137204.10.20.22.4.2&quot ; /> <id nullFlavor="NA" /> <code codeSystem="local" code="MPVT" displayName="MEAN PLATELET VOLUME" /> <statusCode code="completed" / > <effectiveTime value="254716705177" /> & lt;value unit="fl" xsi:type="PQ"value="10.8" /&gt ; <referenceRange> <observationRange> & lt;text>8.5-10.9</text> </observationRange> & lt;/referenceRange> </observation> </component> <component> <observation moodCode="EVN" classCode=& quot;OBS"> <templateId root=" 2.16.840.1.656561.10.20.22.4.2" /> <id nullFlavor="NA& quot; /> <code codeSystem="local" code="RBC" displayName="RED BLOOD CELL" /> <statusCode code=" completed" /> <effectiveTime value="373641157149" /> <value unit="m/cumm" xsi:type="PQ" value=& quot;4.71" /> <referenceRange> < observationRange> <text>4.00-6.00</text> </observationRange> </referenceRange> </observation > </component> <component> <observation moodCode="EVN" classCode="OBS"> <templateId root="2.16.840.1.289155.10.20.22.4.2" /> <id nullFlavor ="NA" /> <code codeSystem="local" code=" RDW" displayName="RED CELL DISTRIBUTION WIDTH" /> < statusCode code="completed" /> <effectiveTime value=& quot;784093845873" /> <value unit="%" xsi: type="PQ" value="13.8" /> <referenceRange&gt ; <observationRange> <text>11.0-15.6</ text> </observationRange> </referenceRange> </observation> </component> <component> <observation moodCode="EVN" classCode="OBS"> <templateId root="2.16.840.1.234573.10.20.22.4.2" /> <id nullFlavor="NA" /> <code codeSystem=" local" code="WBC" displayName="WHITE BLOOD CELL" /> <statusCode code="completed" /> <effectiveTime value ="464208633649" /> <value unit="k/cumm" xsi: type="PQ" value="7.4"/> <referenceRange> <observationRange> <text>5.0-10.0</text& gt; </observationRange> </referenceRange> </observation> </component> <component> &lt ;observation moodCode="EVN" classCode="OBS"> &lt ;templateId root="2.16.840.1.554035.10.20.22.4.2" /> < id nullFlavor="NA" /> <code codeSystem="local&quot ; code="HGBT" displayName="HEMOGLOBIN" /> < statusCode code="completed" /> <effectiveTime value=& quot;384406986534" /> <value unit="gm/dL" xsi:type=" PQ" value="12.5" /> <referenceRange> <observationRange> <text>12.0-16.0</text> </observationRange> </referenceRange> </ observation> </component> <component> < observation moodCode="EVN" classCode="OBS"> < templateId root="2.16.840.1.034643.10.20.22.4.2" /> < id nullFlavor="NA" /> <code codeSystem="local&quot ; code="HCTT" displayName="HEMATOCRIT" /> < statusCode code="completed" /> <effectiveTime value=& quot;278020180699" /> <value unit="%" xsi: type="PQ" value="38.2" /> <referenceRange&gt ; <observationRange> <text>37.0-47.0</ text> </observationRange> </referenceRange> </ observation> </component> <component> < observation moodCode="EVN" classCode="OBS"> < templateId root="2.16.840.1.069984.10.20.22.4.2" /> < id nullFlavor="NA" /> <code codeSystem="local&quot ; code="NRBC%" displayName="NRBC %" /> <statusCode code="completed" /> < effectiveTime value="342570229859" /> <value unit=&quot ;/100WBC" xsi:type="PQ" value="0.0" /> < referenceRange> <observationRange> <text> 0.0-0.0</text> </observationRange> </ referenceRange> </observation> </component> < component> <observation moodCode="EVN" classCode=" OBS"> <templateId root="2.16.840.1.709027.10.20.22.4.2& quot; /> <id nullFlavor="NA" /> <code codeSystem="local" code="PLTT" displayName="PLATELET COUNT" /> <statusCode code="completed" /> <effectiveTime value="295293840812" /> <value unit="k/cumm" xsi:type="PQ" value="127" /> <interpretationCode codeSystem="local" code="*" /& gt; <referenceRange> <observationRange> <text>150-400</text> </observationRange> < /referenceRange> </observation> </component> &lt ;component> <observation moodCode="EVN" classCode="OBS "> <templateIdroot="2.16.840.1.051605.10.20.22.4.2&quot ; /> <id nullFlavor="NA" /> <code codeSystem="local" code="IG%" displayName=" IMMATURE GRANULOCYTE %" /> <statusCode code=" completed" /> <effectiveTime value="264145092089" /> <value unit="%" xsi:type="PQ" value=&quot ;0.3" /> <referenceRange> <observationRange > <text>0.0-0.6</text> </ observationRange> </referenceRange> </observation&gt ; </component> <component> <observation moodCode ="EVN" classCode="OBS"> <templateId root=& quot;2.16.840.1.030351.10..22.4.2" /> <id nullFlavor=&quot ;NA" /> <code codeSystem="local" code="IG#& quot; displayName="IMMATURE GRANULOCYTE #" /> < statusCode code="completed" /> <effectiveTime value=& quot;095809562980" /> <value unit="k/cumm" xsi: type="PQ" value="0.02" /> <referenceRange&gt ; <observationRange> <text>0.00-0.09</ text> </observationRange> </referenceRange> </observation> </component> <component> & lt;observation moodCode="EVN" classCode="OBS"> & lt;templateId root="2.16.840.1.356873.10..22.4.2" /> &lt ;id nullFlavor="NA" /> <code codeSystem="local& quot; code="IPFT" displayName="IMMATURE PLATELET FRACTION" / > <statusCode code="completed" /> < effectiveTime value="784958547460" /> <value unit=&quot ;%" xsi:type="PQ" value="2.5" /> & lt;referenceRange> <observationRange> <text& gt;1.1-6.1</text> </observationRange> </ referenceRange> </observation> </component> </ organizer> </entry> <entry> <organizer moodCode="EVN " classCode="BATTERY"> <templateId root=" 2.16.840.1.114894.10.20.22.4.1" /> <id nullFlavor="NA&quot ; /> <code codeSystem="local" code="RENAL" displayName="RENAL FUNCTION PANEL" /> <statusCode code=& quot;completed" /><component> <observation moodCode=& quot;EVN" classCode="OBS"> <templateId root=" 2.16.840.1.134979.10.20.22.4.2" /> <id nullFlavor="NA& quot; /> <code codeSystem="local" code="K" displayName="POTASSIUM" /> <statusCode code=" completed" /> <effectiveTime value="576294294732" /> <value unit="mmol/L" xsi:type="PQ" value=& quot;3.9" /> <referenceRange> < observationRange> <text>3.5-5.3</text> & lt;/observationRange> </referenceRange> </ observation> </component> <component> <observation moodCode="EVN" classCode="OBS"> <templateId root="2.16.840.1.332116.10.20.22.4.2" /> <id nullFlavor ="NA" /> <code codeSystem="local" code="eGFR " displayName="EST GFR (MDRD)" /> <statusCode code ="completed" /> <effectiveTime value="771769497853 " /> <value unit="mL/min" xsi:type="PQ" value="> 60" /> <referenceRange> & lt;observationRange> <text>> 59</text> </observationRange> </referenceRange> </ observation> </component> <component> < observation moodCode="EVN" classCode="OBS"> < templateId root="2.16.840.1.861439.10.20.22.4.2" /> < id nullFlavor="NA" /> <code codeSystem="local" code= "GAP" displayName="ANION GAP" /> <statusCode code="completed" /> <effectiveTime value=" 604814460006" /> <value unit="mmol/L" xsi:type=& quot;PQ" value="13" /> <referenceRange> <observationRange> <text>5-15</text> </observationRange> </referenceRange></observation& gt; </component> <component> <observation moodCode="EVN" classCode="OBS"> <templateId root="2.16.840.1.959704.10.20.22.4.2" /> <id nullFlavor ="NA" /> <code codeSystem="local" code=" eCrCl" displayName="EST CrCl (CG)" /> <statusCode code="completed" /> <effectiveTime value=" 482932948303" /> <value unit="mL/min" xsi:type=& quot;PQ" value="> 60" /> <referenceRange&gt ; <observationRange> <text>> 59</ text> </observationRange> </referenceRange> </observation> </component> <component> <observation moodCode="EVN" classCode="OBS"> <templateId root="2.16.840.1.603998.10.20.22.4.2" /> <id nullFlavor="NA" /> <code codeSystem=" local" code="GLU" displayName="GLUCOSE" /> <statusCode code="completed" /> <effectiveTime value ="165565846645" /><value unit="mg/dL" xsi:type=" PQ" value="187" /> <interpretationCode codeSystem= "local" code="*" /> <referenceRange> <observationRange> <text>70-99</text> </observationRange> </referenceRange> </ observation> </component> <component> < observation moodCode="EVN" classCode="OBS"> < templateId root="2.16.840.1.242721.10.20.22.4.2" /> < id nullFlavor="NA" /> <code codeSystem="local&quot ; code="CA" displayName="CALCIUM" /> < statusCode code="completed" /> <effectiveTime value=& quot;743449138477" /> <value unit="mg/dL" xsi:type ="PQ" value="8.4" /> <interpretationCode codeSystem="local" code="*" /> < referenceRange> <observationRange> <text>8.5- 10.1</text> </observationRange> </ referenceRange> </observation> </component> < component> <observation moodCode="EVN" classCode=" OBS"> <templateId root="2.16.840.1.819232.10.20.22.4.2& quot; /> <id nullFlavor="NA" /> <code codeSystem="local" code="BUN" displayName="BLOOD UREA NITROGEN" /> <statusCode code="completed" /> <effectiveTime value="810303349902" /> < value unit="mg/dL" xsi:type="PQ" value="11" /> <referenceRange> <observationRange> <text>7-20</text> </observationRange> & lt;/referenceRange> </observation> </component> < component> <observation moodCode="EVN" classCode=" OBS"> <templateId root="2.16.840.1.568491.10.20.22.4.2& quot; /> <id nullFlavor="NA" /> <code codeSystem="local" code="CREAT" displayName="CREATININE " /> <statusCode code="completed" /> & lt;effectiveTime value="409610198956" /> <value unit=& quot;mg/dL" xsi:type="PQ" value="0.9" /> < referenceRange> <observationRange> <text> 0.6-1.0</text> </observationRange> </ referenceRange> </observation> </component> < component> <observation moodCode="EVN" classCode=" OBS"> <templateId root="2.16.840.1.020999.10.20.22.4.2& quot; /> <id nullFlavor="NA" /> <code codeSystem="local" code="NA" displayName="SODIUM" /> <statusCode code="completed" /> < effectiveTime value="242850384158" /> <value unit=&quot ;mmol/L" xsi:type="PQ" value="139" /> < referenceRange> <observationRange> <text> 135-148</text> </observationRange> </ referenceRange> </observation> </component> < component> <observation moodCode="EVN" classCode=" OBS"> <templateId root="2.16.840.1.147536.10.20.22.4.2& quot; /> <id nullFlavor="NA" /> <code codeSystem="local" code="CL" displayName="CHLORIDE&quot ; /> <statusCode code="completed" /> < effectiveTime value="433690977643" /> <value unit=&quot ;mmol/L" xsi:type="PQ" value="109" /> < referenceRange> <observationRange> <text> 98-110</text> </observationRange> </referenceRange& gt; </observation> </component> <component> <observation moodCode="EVN" classCode="OBS"> <templateId root="2.16.840.1.650969.10.20.22.4.2" /> <id nullFlavor="NA" /> <code codeSystem=&quot ;local" code="CO2" displayName="CARBON DIOXIDE" /> <statusCode code="completed" /> < effectiveTime value="808174036294" /> <value unit=&quot ;mmol/L" xsi:type="PQ" value="17" /> < interpretationCode codeSystem="local" code="*" /> <referenceRange> <observationRange> < text>21-32</text> </observationRange> </ referenceRange> </observation> </component> < component> <observation moodCode="EVN" classCode=" OBS"> <templateId root="2.16.840.1.684482.10.20.22.4.2& quot; /> <id nullFlavor="NA" /> <code codeSystem="local" code="ALB" displayName="ALBUMIN&quot ; /> <statusCode code="completed" /> < effectiveTime value="461222615148" /> <value unit="gm/dL " xsi:type="PQ" value="3.5" /> < referenceRange> <observationRange> <text> 3.4-5.0</text> </observationRange> </ referenceRange> </observation> </component> < component> <observation moodCode="EVN" classCode=" OBS"> <templateId root="2.16.840.1.888880.10..22.4.2& quot; /> <id nullFlavor="NA" /> <code codeSystem="local" code="PHOS" displayName="PHOSPHORUS& quot; /> <statusCode code="completed" /> & lt;effectiveTime value="839317992263" /> <value unit=& quot;mg/dL" xsi:type="PQ" value="3.2" /> & lt;referenceRange> <observationRange> <text& gt;2.5-4.9</text> </observationRange> </ referenceRange> </observation> </component> </ organizer> </entry> <entry> <organizer moodCode="EVN " classCode="BATTERY"> <templateId root=" 2.16.840.1.093536.10.20.22.4.1" /> <id nullFlavor="NA&quot ; /> <code codeSystem="local" code="MAG" displayName="MAGNESIUM" /> <statusCode code="completed " /> <component> <observation moodCode="EVN& quot; classCode="OBS"> <templateId root=" 2.16.840.1.078410.10.20.22.4.2" /> <id nullFlavor="NA& quot; /> <code codeSystem="local" code="MAG" displayName="MAGNESIUM" /> <statusCode code=" completed" /> <effectiveTime value="256562945664" /> <value unit="mg/dL" xsi:type="PQ" value=& quot;2.1" /> <referenceRange> < observationRange> <text>1.8-2.4</text> & lt;/observationRange> </referenceRange> </observation&gt ; </component> </organizer> </entry> <entry> <organizer moodCode="EVN" classCode="BATTERY"> <templateId root="2.16.840.1.244881.10.20.22.4.1" /> < id nullFlavor="NA" /> <code codeSystem="local" code="GLUMON" displayName="GLUCOSE (POC)" /> < statusCode code="completed" /> <component> < observation moodCode="EVN" classCode="OBS"> < templateId root="2.16.840.1.888306.10.20.22.4.2" /> < id nullFlavor="NA" /> <code codeSystem="local&quot ; code="GLUMON" displayName="GLUCOSE (POC)" /> & lt;statusCode code="completed" /> <effectiveTime value= "220143272257" /> <value unit="mg/dL" xsi: type="PQ" value="208" /> <interpretationCode codeSystem="local" code="*" /> < referenceRange> <observationRange> <text>70-99</ text> </observationRange> </referenceRange> </observation> </component> </organizer> </ entry> <entry> <organizer moodCode="EVN" classCode=& quot;BATTERY"> <templateId root=" 2.16.840.1.636059.10.20.22.4.1" /> <id nullFlavor="NA&quot ; /> <code codeSystem="local" code="GLUMON" displayName="GLUCOSE (POC)" /> <statusCode code=" completed" /> <component> <observation moodCode=& quot;EVN" classCode="OBS"> <templateId root=" 2.16.840.1.329123.10.20.22.4.2" /> <id nullFlavor="NA& quot; /> <code codeSystem="local" code="GLUMON& quot; displayName="GLUCOSE (POC)" /> <statusCode code=& quot;completed" /> <effectiveTime value="590581620316& quot; /> <value unit="mg/dL" xsi:type="PQ" value="295" /> <interpretationCode codeSystem=" local" code="*" /> <referenceRange> & lt;observationRange> <text>70-99</text> & lt;/observationRange> </referenceRange> </ observation> </component> </organizer> </entry> & lt;entry> <organizermoodCode="EVN" classCode="BATTERY& quot;> <templateId root="2.16.840.1.360192.10.20.22.4.1" /& gt; <id nullFlavor="NA" /> <code codeSystem=" local" code="GLUMON" displayName="GLUCOSE (POC)" /> <statusCode code="completed" /> <component> <observation moodCode="EVN" classCode="OBS"> <templateId root="2.16.840.1.341557.10.20.22.4.2" /> <id nullFlavor="NA" /> <code codeSystem=" local" code="GLUMON" displayName="GLUCOSE (POC)" /> <statusCodecode="completed" /> < effectiveTime value="548948262226" /> <value unit="mg/ dL" xsi:type="PQ" value="252" /> < interpretationCode codeSystem="local" code="*" /> <referenceRange> <observationRange> < text>70-99</text> </observationRange> </ referenceRange> </observation> </component> </ organizer> </entry> <entry> <organizer moodCode="EVN "classCode="BATTERY"> <templateId root=" 2.16.840.1.797615.10.20.22.4.1" /> <id nullFlavor="NA&quot ; /> <code codeSystem="local" code="GLUMON" displayName="GLUCOSE (POC)" /> <statusCode code=" completed" /> <component> <observation moodCode=& quot;EVN" classCode="OBS"> <templateId root=" 2.16.840.1.291886.10.20.22.4.2" /> <id nullFlavor="NA& quot; /> <code codeSystem="local" code="GLUMON& quot; displayName="GLUCOSE (POC)" /> <statusCode code=& quot;completed" /> <effectiveTime value="166795400274& quot; /> <value unit="mg/dL" xsi:type="PQ" value="173" /> <interpretationCode codeSystem=" local" code="*" /> <referenceRange> <observationRange> <text>70-99</text> </observationRange> </referenceRange> </observation& gt; </component> </organizer> </entry> <entry&gt ; <organizer moodCode="EVN" classCode="BATTERY"> <templateId root="2.16.840.1.518313.10.20.22.4.1" /> & lt;id nullFlavor="NA" /> <code codeSystem="local&quot ; code="GLUMON" displayName="GLUCOSE (POC)" /> < statusCode code="completed" /> <component> < observation moodCode="EVN" classCode="OBS"> < templateId root="2.16.840.1.228942.10.20.22.4.2" /> < id nullFlavor="NA" /> <code codeSystem="local&quot ; code="GLUMON" displayName="GLUCOSE (POC)" /> & lt;statusCode code="completed" /> <effectiveTime value= "773696134133" /> <value unit="mg/dL" xsi: type="PQ" value="188" /> <interpretationCode codeSystem="local"code="*" /> <referenceRange > <observationRange> <text>70-99</text> </observationRange> </referenceRange> </ observation> </component> </organizer> </entry> & lt;entry> <organizer moodCode="EVN" classCode="BATTERY& quot;> <templateId root="2.16.840.1.539906.10.20.22.4.1" /& gt; <id nullFlavor="NA" /> <code codeSystem=" local" code="GLUMON" displayName="GLUCOSE (POC)" /> <statusCode code="completed" /> <component> <observation moodCode="EVN" classCode="OBS"> <templateId root="2.16.840.1.032257.10.20.22.4.2" /> <id nullFlavor="NA" /> <code codeSystem=" local" code="GLUMON" displayName="GLUCOSE (POC)" /> <statusCode code="completed" /> < effectiveTime value="481483858862" /> <value unit=&quot ;mg/dL" xsi:type="PQ" value="131" /> < interpretationCode codeSystem="local" code="*" /> <referenceRange> <observationRange> < text>70-99</text> </observationRange> </ referenceRange> </observation> </component> </ organizer> </entry> <entry> <organizer moodCode="EVN " classCode="BATTERY"> <templateId root=" 2.16.840.1.847649.10.20.22.4.1" /> <id nullFlavor="NA&quot ; /> <code codeSystem="local" code="CBCD" displayName="CBC W/DIFF" /> <statusCode code=" completed" /> <component> <observation moodCode=& quot;EVN" classCode="OBS"> <templateId root=" 2.16.840.1.885249.10.20.22.4.2" /> <id nullFlavor="NA& quot; /> <code codeSystem="local" code="BA#" displayName="BASOPHIL #" /> <statusCode code=" completed" /> <effectiveTime value="795967217011" /> <value unit="k/cumm" xsi:type="PQ" value=& quot;0.0" /> <referenceRange> < observationRange> <text>0.0-0.2</text> </ observationRange> </referenceRange> </observation&gt ; </component> <component> <observation moodCode ="EVN" classCode="OBS"> <templateId root=& quot;2.16.840.1.278304.10.20.22.4.2" /><id nullFlavor="NA" /> <code codeSystem="local" code="BA%&quot ; displayName="BASOPHIL %" /> <statusCode code= "completed" /> <effectiveTime value="405158780489& quot; /> <value unit="%" xsi:type="PQ&quot ; value="0.4" /> <referenceRange> < observationRange> <text>0-1</text> </ observationRange> </referenceRange> </observation&gt ; </component> <component> <observation moodCode ="EVN" classCode="OBS"> <templateId root=& quot;2.16.840.1.845066.10.20.22.4.2" /> <id nullFlavor=&quot ;NA" /> <code codeSystem="local" code="EO#& quot; displayName="EOSINOPHIL #" /> <statusCode code=& quot;completed" /> <effectiveTime value="212678625990& quot; /> <value unit="k/cumm" xsi:type="PQ" value="0.3" /> <referenceRange><observationRange& gt; <text>0.1-0.5</text> </ observationRange> </referenceRange> </observation&gt ; </component> <component> <observation moodCode ="EVN" classCode="OBS"><templateId root=" 2.16.840.1.867414.10..22.4.2" /> <id nullFlavor="NA& quot; /> <code codeSystem="local" code="EO&#37 ;" displayName="EOSINOPHIL %" /> < statusCode code="completed" /> <effectiveTime value=" 741837176318" /> <value unit="%" xsi:type= "PQ" value="4.8" /> <interpretationCode codeSystem="local" code="*" /> < referenceRange> <observationRange> <text> 2-4</text> </observationRange> </ referenceRange> </observation> </component> < component> <observation moodCode="EVN" classCode="OBS& quot;> <templateId root="2.16.840.1.744091.10.20.22.4.2&quot ; /> <id nullFlavor="NA" /> <code codeSystem="local" code="GR#" displayName="GRANULOCYTE #" /> <statusCode code="completed" /> <effectiveTime value="567820383423" /> <value unit=& quot;k/cumm" xsi:type="PQ" value="4.5" /> & lt;referenceRange> <observationRange> <text>2.0-9.0& lt;/text> </observationRange> </referenceRange& gt; </observation> </component> <component> <observation moodCode="EVN" classCode="OBS"> <templateId root="2.16.840.1.298687.10.20.22.4.2" /> <id nullFlavor="NA" /> <code codeSystem=&quot ;local" code="GR%" displayName="GRANULOCYTE &#37 ;" /> <statusCode code="completed" /> <effectiveTime value="443720837671" /> <value unit=& quot;%" xsi:type="PQ" value="63.4" /> <referenceRange> <observationRange> <text> 50-75</text> </observationRange> </ referenceRange> </observation> </component> < component> <observation moodCode="EVN" classCode=" OBS"> <templateId root="2.16.840.1.766524.10..22.4.2& quot; /> <id nullFlavor="NA" /> < codecodeSystem="local" code="LY#" displayName=" LYMPHOCYTE #" /> <statusCode code="completed" /> <effectiveTime value="509579488028" /> <value unit="k/cumm" xsi:type="PQ" value="1.7"/> <referenceRange> <observationRange> &lt ;text>1.0-4.0</text> </observationRange> < /referenceRange> </observation> </component> &lt ;component> <observation moodCode="EVN" classCode=" OBS"> <templateId root="2.16.840.1.311934.10..22.4.2& quot; /> <id nullFlavor="NA" /> <code codeSystem="local" code="LY%" displayName=" LYMPHOCYTE %" /> <statusCode code="completed& quot; /> <effectiveTime value="187975826180" /> <value unit="%" xsi:type="PQ" value=" 24.0" /> <referenceRange> <observationRange > <text>20-30</text> </ observationRange> </referenceRange> </observation&gt ; </component> <component> <observation moodCode ="EVN" classCode="OBS"> <templateId root=& quot;2.16.840.1.430653.10.20.22.4.2" /> <id nullFlavor=&quot ;NA" /> <code codeSystem="local" code="MCH& quot; displayName="MEAN CELL HGB" /> <statusCode code=& quot;completed" /> <effectiveTime value="521428191762& quot; /> <value unit="pg" xsi:type="PQ" value=&quot ;25.8" /> <interpretationCode codeSystem="local" code="*" /> <referenceRange> < observationRange> <text>27.0-33.0</text> </observationRange> </referenceRange> </ observation> </component> <component> < observation moodCode="EVN" classCode="OBS"> < templateId root="2.16.840.1.291482.10.20.22.4.2" /> < idnullFlavor="NA" /> <code codeSystem="local&quot ; code="MCHC"displayName="MEAN CELL HGB CONCENTRATION" /&gt ; <statusCode code="completed" /> < effectiveTime value="042294652362" /> <value unit=&quot ;g/dL" xsi:type="PQ" value="31.6" /> < interpretationCode codeSystem="local" code="*" /> <referenceRange> <observationRange> < text>32.0-37.0</text> </observationRange> &lt ;/referenceRange> </observation> </component> & lt;component> <observation moodCode="EVN" classCode=&quot ;OBS"><templateId root="2.16.840.1.946768.10.20.22.4.2" /& gt; <id nullFlavor="NA" /> <code codeSystem ="local" code="MCV" displayName="MEAN CELL VOLUME&quot ; /> <statusCode code="completed" /> < effectiveTime value="285186272560" /> <value unit=&quot ;fl" xsi:type="PQ" value="81.7" /> < referenceRange> <observationRange> <text> 80.0-100.0</text> </observationRange> </ referenceRange> </observation> </component> < component> <observation moodCode="EVN" classCode="OBS "> <templateId root="[id number]& quot; /> <id nullFlavor="NA" /> <code codeSystem="local" code="MO#" displayName="MONOCYTE #& quot; /> <statusCode code="completed" /> & lt;effectiveTime value="[id number]" /> <value unit=& quot;k/cumm" xsi:type="PQ" value="0.5" /> & lt;referenceRange> <observationRange> <text>0.1-1.0 </text> </observationRange> </referenceRange& gt; </observation> </component> <component> <observation moodCode="EVN" classCode="OBS"> <templateId root="[id number]" /> <id nullFlavor="NA" /> <codecodeSystem=" local" code="MO%" displayName="MONOCYTE %& quot;/> <statusCode code="completed" /> &lt ;effectiveTime value="[id number]" /> <value unit=& quot;%" xsi:type="PQ" value="7.3" /> <interpretationCode codeSystem="local" code="*" /> <referenceRange> <observationRange> <text>4-6</text> </observationRange> & lt;/referenceRange> </observation> </component> <component> <observation moodCode="EVN" classCode=& quot;OBS"> <templateId root=" 2.16.840.1.809896.10.20.22.4.2" /> <id nullFlavor="NA& quot; /> <code codeSystem="local" code="MPVT&quot ; displayName="MEAN PLATELET VOLUME" /> <statusCode code="completed" /> <effectiveTime value=" 817027606837" /> <value unit="fl" xsi:type=" PQ" value="10.2" /> <referenceRange> < observationRange> <text>8.5-10.9</text> & lt;/observationRange> </referenceRange> </ observation> </component> <component> < observation moodCode="EVN" classCode="OBS"> < templateId root="2.16.840.1.769183.10.20.22.4.2" /> < id nullFlavor="NA" /> <code codeSystem="local&quot ; code="RBC" displayName="RED BLOOD CELL" /> &lt ;statusCode code="completed" /> <effectiveTime value=& quot;543302181831" /> <value unit="m/cumm" xsi: type="PQ" value="4.49" /> <referenceRange&gt ; <observationRange> <text>4.00-6.00</ text> </observationRange> </referenceRange> & lt;/observation> </component> <component> < observation moodCode="EVN" classCode="OBS"> < templateId root="2.16.840.1.336366.10.20.22.4.2" /><id nullFlavor="NA" /> <code codeSystem="local" code="RDW" displayName="RED CELL DISTRIBUTION WIDTH" /> <statusCode code="completed" /> < effectiveTime value="320769958417" /> <value unit=&quot ;%" xsi:type="PQ" value="13.9" /> & lt;referenceRange> <observationRange> <text& gt;11.0-15.6</text> </observationRange> </ referenceRange> </observation> </component> < component> <observation moodCode="EVN" classCode=" OBS"> <templateId root="2.16.840.1.415725.10.20.22.4.2& quot; /> <id nullFlavor="NA" /> <code codeSystem="local" code="WBC" displayName="WHITE BLOOD CELL" /> <statusCode code="completed" /> <effectiveTime value="796911840135" /> <value unit="k/cumm" xsi:type="PQ" value="7.0" /> <referenceRange> <observationRange> & lt;text>5.0-10.0</text> </observationRange> & lt;/referenceRange> </observation> </component> <component> <observation moodCode="EVN" classCode=& quot;OBS"> <templateId root=" 2.16.840.1.178871.10.20.22.4.2" /> <id nullFlavor="NA& quot; /> <code codeSystem="local" code="HGBT&quot ; displayName="HEMOGLOBIN" /> <statusCode code=" completed" /> <effectiveTime value="285075127900" /> <value unit="gm/dL" xsi:type="PQ" value=" 11.6" /> <interpretationCode codeSystem="local" code="*" /> <referenceRange> < observationRange> <text>12.0-16.0</text> </observationRange> </referenceRange> </ observation> </component> <component> <observation moodCode="EVN" classCode="OBS"> <templateId root="2.16.840.1.495765.10.20.22.4.2" /> <id nullFlavor ="NA" /> <code codeSystem="local" code="HCTT " displayName="HEMATOCRIT"/> <statusCode code=& quot;completed" /> <effectiveTime value="562632568739& quot; /> <value unit="%" xsi:type="PQ&quot ; value="36.7" /> <interpretationCode codeSystem=" local" code="*" /> <referenceRange> <observationRange> <text>37.0-47.0</text> </observationRange> </referenceRange></observation& gt; </component> <component> <observation moodCode="EVN" classCode="OBS"> <templateId root="2.16.840.1.660975.10.20.22.4.2" /> <id nullFlavor ="NA" /> <code codeSystem="local" code=" NRBC%" displayName="NRBC %" /><statusCode code="completed" /> <effectiveTime value=" 935454431251" /> <value unit="/100WBC" xsi:type=& quot;PQ" value="0.0"/> <referenceRange> <observationRange> <text>0.0-0.0</text> </observationRange> </referenceRange> </ observation> </component> <component> < observation moodCode="EVN" classCode="OBS"> < templateId root="2.16.840.1.613398.10.20.22.4.2" /> < id nullFlavor="NA" /> <code codeSystem="local&quot ; code="PLTT" displayName="PLATELET COUNT" /> & lt;statusCode code="completed" /> <effectiveTime value= "418583242752" /> <value unit="k/cumm" xsi:type=& quot;PQ" value="140" /><interpretationCode codeSystem=&quot ;local" code="*" /> <referenceRange> <observationRange> <text>150-400</text></ observationRange> </referenceRange> </observation&gt ; </component> <component> <observation moodCode ="EVN" classCode="OBS"> <templateId root=& quot;2.16.840.1.898848.10..22.4.2" /> <id nullFlavor=&quot ;NA" /> <code codeSystem="local" code="IG&amp ;#37;" displayName="IMMATURE GRANULOCYTE %" /> <statusCode code="completed" /> <effectiveTime value="754909802851" /> <value unit="%& quot; xsi:type="PQ" value="0.1" /> < referenceRange> <observationRange> <text> 0.0-0.6</text> </observationRange> </ referenceRange> </observation> </component> < component> <observation moodCode="EVN" classCode=" OBS"> <templateId root="2.16.840.1.961552.10.20.22.4.2& quot; /> <id nullFlavor="NA" /> <code codeSystem="local" code="IG#" displayName="IMMATURE GRANULOCYTE #" /> <statusCode code="completed" /& gt; <effectiveTime value="588617097463" /> &lt ;value unit="k/cumm" xsi:type="PQ" value="0.01" /& gt; <referenceRange> <observationRange> <text>0.00-0.09</text> </observationRange> </referenceRange> </observation> </component> <component> <observation moodCode="EVN" classCode= "OBS"> <templateId root=" 2.16.840.1.077081.10.20.22.4.2" /> <id nullFlavor="NA" /& gt; <code codeSystem="local" code="IPFT" displayName="IMMATURE PLATELET FRACTION" /> < statusCode code="completed" /> <effectiveTime value=& quot;886008406457" /> <value unit="%" xsi: type="PQ" value="1.9" /> <referenceRange> <observationRange> <text>1.1-6.1</text& gt; </observationRange> </referenceRange> </ observation> </component> </organizer> </entry> & lt;entry> <organizer moodCode="EVN" classCode="BATTERY& quot;> <templateId root="2.16.840.1.102967.10.20.22.4.1" /& gt; <id nullFlavor="NA" /> <code codeSystem=" local" code="METAB" displayName="METABOLIC PANEL, BASIC&quot ; /> <statusCode code="completed" /> <component& gt; <observation moodCode="EVN" classCode="OBS"&gt ; <templateId root="2.16.840.1.606309.10.20.22.4.2" /> <id nullFlavor="NA" /> <code codeSystem=& quot;local" code="K" displayName="POTASSIUM" /> <statusCode code="completed" /> < effectiveTime value="542218262622" /> <value unit=&quot ;mmol/L" xsi:type="PQ" value="4.1" /> < referenceRange> <observationRange> <text> 3.5-5.3</text> </observationRange> </ referenceRange> </observation> </component> < component> <observation moodCode="EVN" classCode=" OBS"> <templateId root="2.16.840.1.114363.10.20.22.4.2& quot; /> <id nullFlavor="NA" /> <code codeSystem="local" code="eGFR" displayName="EST GFR ( MDRD)" /> <statusCode code="completed" /> <effectiveTime value="038897528985" /> <value unit="mL/min" xsi:type="PQ" value="> 60" /& gt; <referenceRange> <observationRange> <text>> 59</text> </observationRange> </referenceRange> </observation> </component& gt; <component> <observation moodCode="EVN" classCode="OBS"> <templateId root=" 2.16.840.1.791816.10.20.22.4.2" /> <id nullFlavor="NA& quot; /> <code codeSystem="local" code="GAP" displayName="ANION GAP" /> <statusCode code=" completed" /> <effectiveTime value="442284474805" /> <value unit="mmol/L" xsi:type="PQ" value="8& quot; /> <referenceRange> <observationRange> <text>5-15</text> </observationRange&gt ; </referenceRange> </observation> </component&gt ; <component> <observation moodCode="EVN" classCode="OBS"> <templateId root=" 2.16.840.1.955460.10.20.22.4.2" /> <id nullFlavor="NA& quot; /> <code codeSystem="local" code="eCrCl&quot ; displayName="EST CrCl(CG)" /> <statusCode code=" completed" /> <effectiveTimevalue="437367911052" / > <value unit="mL/min" xsi:type="PQ" value=& quot;> 60" /> <referenceRange> < observationRange> <text>> 59</text> </observationRange> </referenceRange> </observation&gt ; </component> <component> <observation moodCode=& quot;EVN" classCode="OBS"> <templateIdroot=" 2.16.840.1.684051.10.20.22.4.2" /> <id nullFlavor="NA& quot; /> <code codeSystem="local" code="GLU" displayName="GLUCOSE"/> <statusCode code=" completed" /> <effectiveTime value="781803108515" /> <value unit="mg/dL" xsi:type="PQ" value=& quot;123" /> <interpretationCode codeSystem="local&quot ; code="*" /> <referenceRange> < observationRange> <text>70-99</text> < /observationRange> </referenceRange> </observation& gt; </component> <component> <observation moodCode="EVN" classCode="OBS"> <templateId root="2.16.840.1.857004.10.20.22.4.2" /> <id nullFlavor ="NA" /> <code codeSystem="local" code=" CA" displayName="CALCIUM" /> <statusCode code=& quot;completed" /> <effectiveTime value="644327348564& quot; /> <value unit="mg/dL" xsi:type="PQ" value="8.3" /> <interpretationCode codeSystem=" local" code="*" /> <referenceRange> < observationRange> <text>8.5-10.1</text> & lt;/observationRange> </referenceRange> </ observation> </component> <component> < observation moodCode="EVN" classCode="OBS"> < templateId root="2.16.840.1.869992.10.20.22.4.2" /> < id nullFlavor="NA" /> <code codeSystem="local&quot ; code="BUN" displayName="BLOOD UREA NITROGEN" /> <statusCode code="completed" /> <effectiveTime value=& quot;744675062792" /> <value unit="mg/dL"xsi:type= "PQ" value="10" /> <referenceRange> <observationRange> <text>7-20</text> </observationRange> </referenceRange> </ observation> </component> <component> < observation moodCode="EVN" classCode="OBS"> < templateId root="2.16.840.1.821068.10.20.22.4.2" /> < id nullFlavor="NA"/> <code codeSystem="local&quot ; code="CREAT" displayName="CREATININE" /> < statusCode code="completed" /> <effectiveTime value=& quot;769508519742" /> <value unit="mg/dL" xsi:type ="PQ" value="0.9" /> <referenceRange> <observationRange> <text>0.6-1.0</text> </observationRange> </referenceRange> </ observation> </component> <component> < observation moodCode="EVN" classCode="OBS"> < templateId root="2.16.840.1.078093.10.20.22.4.2" /> < id nullFlavor="NA" /> <code codeSystem="local&quot ; code="NA" displayName="SODIUM" /> < statusCode code="completed" /> <effectiveTime value=& quot;486026361353" /> <value unit="mmol/L" xsi: type="PQ" value="140" /> <referenceRange> <observationRange> <text>135-148</text& gt; </observationRange> </referenceRange> </observation> </component> <component> &lt ;observation moodCode="EVN" classCode="OBS"> &lt ;templateId root="2.16.840.1.286483.10.20.22.4.2" /> < id nullFlavor="NA" /> <code codeSystem="local&quot ; code="CL" displayName="CHLORIDE" /> < statusCode code="completed" /> <effectiveTime value=& quot;120051957861" /> <value unit="mmol/L" xsi: type="PQ" value="110" /> <referenceRange> <observationRange> <text>98-110</text&gt ; </observationRange> </referenceRange> </ observation> </component> <component> < observation moodCode="EVN" classCode="OBS"> < templateId root="2.16.840.1.760917.10.20.22.4.2" /><id nullFlavor="NA" /> <code codeSystem="local" code="CO2" displayName="CARBON DIOXIDE" /> < statusCode code="completed" /> <effectiveTime value=& quot;836842752884" /> <value unit="mmol/L" xsi: type="PQ" value="22" /> <referenceRange> <observationRange> <text>21-32</text> </observationRange> </referenceRange> </ observation> </component> </organizer> </entry> & lt;entry> <organizer moodCode="EVN" classCode="BATTERY& quot;> <templateId root="2.16.840.1.539803.10.20.22.4.1" /& gt; <id nullFlavor="NA" /> <code codeSystem="local& quot; code="GLUMON" displayName="GLUCOSE (POC)" /> & lt;statusCode code="completed" /> <component> &lt ;observation moodCode="EVN" classCode="OBS"> &lt ;templateId root="2.16.840.1.675150.10.20.22.4.2" /> < id nullFlavor="NA" /> <code codeSystem="local&quot ; code="GLUMON" displayName="GLUCOSE (POC)" /> & lt;statusCode code="completed" /> <effectiveTime value=& quot;879870394509" /> <value unit="mg/dL" xsi:type ="PQ" value="219" /> <interpretationCode codeSystem="local" code="*" /> < referenceRange> <observationRange> <text> 70-99</text> </observationRange> </ referenceRange> </observation> </component> </ organizer> </entry> <entry> <organizer moodCode="EVN " classCode="BATTERY"> <templateId root=" 2.16.840.1.612688.10.20.22.4.1" /> <id nullFlavor="NA&quot ; /> <code codeSystem="local" code="CBCM" displayName="CBC W/MANUAL DIFF" /> <statusCode code=" completed" /> <component> <observation moodCode=& quot;EVN" classCode="OBS"> <templateId root=" 2.16.840.1.357073.10.20.22.4.2" /> <id nullFlavor="NA& quot; /> <code codeSystem="local" code="MCH" displayName="MEAN CELL HGB" /> <statusCode code=" completed" /> <effectiveTime value="179700446837" /> <value unit="pg" xsi:type="PQ" value=&quot ;25.9" /> <interpretationCode codeSystem="local" code="*" /> <referenceRange> < observationRange> <text>27.0-33.0</text> </observationRange> </referenceRange> </observation&gt ; </component> <component> <observation moodCode ="EVN" classCode="OBS"> <templateId root=& quot;2.16.840.1.801675.10.20.22.4.2" /> <id nullFlavor=&quot ;NA" /> <code codeSystem="local" code="MCHC& quot; displayName="MEAN CELL HGB CONCENTRATION" /> < statusCode code="completed" /> <effectiveTime value=& quot;574383933127" /> <value unit="g/dL" xsi:type= "PQ" value="31.6" /> <interpretationCode codeSystem="local" code="*" /> <referenceRange> <observationRange> <text>32.0-37.0</text > </observationRange> </referenceRange> </observation> </component> <component> & lt;observation moodCode="EVN" classCode="OBS"> & lt;templateId root="2.16.840.1.209100.10.20.22.4.2" /> &lt ;id nullFlavor="NA" /> <code codeSystem="local& quot; code="MCV" displayName="MEAN CELL VOLUME" /> <statusCode code="completed" /> <effectiveTime value="417797303072" /> <value unit="fl" xsi: type="PQ" value="81.9" /> <referenceRange&gt ; <observationRange> <text>80.0-100.0</ text> </observationRange> </referenceRange> </observation> </component> <component> &lt ;observation moodCode="EVN" classCode="OBS"> &lt ;templateId root="2.16.840.1.089142.10.20.22.4.2" /> <id nullFlavor="NA" /> <code codeSystem="local" code="MPVT" displayName="MEAN PLATELET VOLUME" /> <statusCode code="completed" /> <effectiveTime value="948197401666" /> <value unit="fl" xsi: type="PQ" value="10.3" /> <referenceRange&gt ; <observationRange> <text>8.5-10.9</text > </observationRange> </referenceRange> </observation> </component> <component> & lt;observation moodCode="EVN" classCode="OBS"> & lt;templateId root="2.16.840.1.402925.10.20.22.4.2" /> &lt ;id nullFlavor="NA" /> <code codeSystem="local& quot; code="RBC" displayName="RED BLOOD CELL" /> <statusCode code="completed" /> <effectiveTime value ="368802861922" /> <value unit="m/cumm" xsi: type="PQ" value="4.52" /> <referenceRange> <observationRange> <text>4.00-6.00</text> </observationRange> </referenceRange> </ observation> </component> <component> < observation moodCode="EVN" classCode="OBS"> < templateId root="2.16.840.1.597668.10.20.22.4.2" /> < id nullFlavor="NA" /> <code codeSystem="local&quot ; code="RDW" displayName="RED CELL DISTRIBUTION WIDTH" /&gt ; <statusCode code="completed" /> < effectiveTime value="666998912231" /> <value unit=&quot ;%" xsi:type="PQ" value="13.7" /> & lt;referenceRange> <observationRange> <text>11.0- 15.6</text> </observationRange> </ referenceRange> </observation> </component> < component> <observation moodCode="EVN" classCode=" OBS"> <templateId root="2.16.840.1.692417.10.20.22.4.2&quot ; /> <id nullFlavor="NA" /> <code codeSystem="local" code="WBC" displayName="WHITE BLOOD CELL" /> <statusCode code="completed" />< effectiveTime value="427406616013" /> <value unit=&quot ;k/cumm" xsi:type="PQ" value="7.3" /> < referenceRange> <observationRange> <text> 5.0-10.0</text> </observationRange> </ referenceRange> </observation> </component> < component> <observation moodCode="EVN" classCode=" OBS"> <templateId root="2.16.840.1.696392.10.20.22.4.2& quot; /> <id nullFlavor="NA" /> <code codeSystem="local" code="HGBT" displayName="HEMOGLOBIN& quot; /> <statusCode code="completed" /> & lt;effectiveTimevalue="964860995529" /> <value unit=& quot;gm/dL" xsi:type="PQ" value="11.7" /> & lt;interpretationCode codeSystem="local" code="*" /> <referenceRange> <observationRange> & lt;text>12.0-16.0</text> </observationRange> </referenceRange> </observation> </component> <component> <observation moodCode="EVN" classCode=& quot;OBS"> <templateId root=" 2.16.840.1.371804.10.20.22.4.2" /> <id nullFlavor="NA& quot; /> <code codeSystem="local" code="HCTT&quot ; displayName="HEMATOCRIT" /> <statusCode code=" completed" /> <effectiveTime value="670103087340" /> <value unit="%" xsi:type="PQ" value="37.0" /> <referenceRange> < observationRange> <text>37.0-47.0</text> </observationRange> </referenceRange> </ observation> </component> <component> < observation moodCode="EVN" classCode="OBS"> < templateId root="2.16.840.1.676027.10.20.22.4.2" /> < id nullFlavor="NA" /> <code codeSystem="local&quot ; code="NRBC%" displayName="NRBC %" /> <statusCode code="completed" /> < effectiveTime value="923204174788" /> <value unit=&quot ;/100WBC" xsi:type="PQ" value="0.0" /> < referenceRange> <observationRange> <text> 0.0-0.0</text> </observationRange> </ referenceRange> </observation> </component> < component> <observation moodCode="EVN" classCode=" OBS"> <templateId root="2.16.840.1.416268.10.20.22.4.2& quot; /> <id nullFlavor="NA" /> <code codeSystem="local" code="PLTT" displayName="PLATELET COUNT" /> <statusCode code="completed" /> <effectiveTime value="324780599363" /><value unit=" k/cumm" xsi:type="PQ" value="202" /> < referenceRange> <observationRange> <text> 150-400</text> </observationRange> </ referenceRange> </observation></component> < component> <observation moodCode="EVN" classCode=" OBS"> <templateId root="2.16.840.1.919111.10..22.4.2& quot; /> <id nullFlavor="NA" /> <code codeSystem="local" code="IG%" displayName=" IMMATURE GRANULOCYTE %" /> <statusCode code=" completed" /> <effectiveTime value="049564277296" /> <value unit="%" xsi:type="PQ" value= "0.1" /> <referenceRange> <observationRange > <text>0.0-0.6</text> </ observationRange> </referenceRange> </observation&gt ; </component> <component> <observation moodCode ="EVN"classCode="OBS"> <templateId root=&quot ;2.16.840.1.495364.10.20.22.4.2" /> <id nullFlavor="NA& quot; /> <code codeSystem="local" code="IG#" displayName="IMMATURE GRANULOCYTE #" /> <statusCode code="completed" /> <effectiveTime value=" 455094925012" /> <value unit="k/cumm" xsi:type="PQ& quot; value="0.01" /> <referenceRange> & lt;observationRange> <text>0.00-0.09</text> </observationRange> </referenceRange> </ observation> </component> </organizer> </entry> & lt;entry> <organizer moodCode="EVN" classCode="BATTERY& quot;> <templateId root="2.16.840.1.587495.10.20.22.4.1" /& gt; <id nullFlavor="NA" /> <code codeSystem=" local" code="DIFFMORD" displayName="MANUAL DIFF(O)" /& gt; <statusCode code="completed" /> <component> <observation moodCode="EVN" classCode="OBS"> <templateId root="2.16.840.1.693105.10.20.22.4.2" /> <id nullFlavor="NA" /> <code codeSystem=& quot;local" code="BA#" displayName="BASOPHIL #" /> <statusCode code="completed" /> < effectiveTime value="099853808337" /> <value unit=&quot ;k/cumm" xsi:type="PQ" value="0.1" /> < referenceRange> <observationRange> <text> 0.0-0.2</text> </observationRange> </referenceRange& gt; </observation> </component> <component> <observation moodCode="EVN" classCode="OBS"> <templateId root="2.16.840.1.879962.10.20.22.4.2" /> &lt ;id nullFlavor="NA" /> <code codeSystem="local& quot; code="BA%" displayName="BASOPHIL %" /& gt; <statusCode code="completed" /> < effectiveTime value="647460430519" /> <value unit=&quot ;%" xsi:type="PQ" value="1.0" /> & lt;referenceRange> <observationRange> <text& gt;0-1</text></observationRange> </referenceRange> </observation> </component> <component> <observation moodCode="EVN" classCode="OBS"> <templateId root="2.16.840.1.795613.10..22.4.2" /> <id nullFlavor="NA" /> <code codeSystem=" local" code="EO#" displayName="EOSINOPHIL #" /> <statusCode code="completed" /> < effectiveTime value="628143156316" /> <value unit=&quot ;k/cumm" xsi:type="PQ" value="0.1" /> < referenceRange> <observationRange> <text>0.1-0.5< /text> </observationRange> </referenceRange> </observation> </component> <component> <observation moodCode="EVN" classCode="OBS"> < templateId root="2.16.840.1.931468.10..22.4.2" /> < id nullFlavor="NA" /> <code codeSystem="local&quot ; code="EO%" displayName="EOSINOPHIL %" /&gt ; <statusCode code="completed" /> < effectiveTime value="780081198469" /> <value unit=&quot ;%" xsi:type="PQ" value="1.0" /> & lt;interpretationCode codeSystem="local" code="*" /> <referenceRange> <observationRange> & lt;text>2-4</text> </observationRange> </ referenceRange> </observation> </component> < component> <observation moodCode="EVN" classCode="OBS& quot;> <templateId root="2.16.840.1.311599.10.20.22.4.2&quot ; /> <id nullFlavor="NA" /> <code codeSystem="local" code="GR#" displayName="GRANULOCYTE #" /> <statusCode code="completed" /> <effectiveTime value="257471463470" /> <value unit=& quot;k/cumm" xsi:type="PQ" value="5.1" /> & lt;referenceRange> <observationRange> <text>2.0-9.0 </text> </observationRange> </referenceRange& gt; </observation> </component> <component> <observation moodCode="EVN" classCode="OBS"> <templateId root="2.16.840.1.365684.10..22.4.2" /> <id nullFlavor="NA" /> <codecodeSystem=" local" code="LY#" displayName="LYMPHOCYTE #" /> < statusCode code="completed" /> <effectiveTime value=& quot;954684470919" /> <value unit="k/cumm" xsi: type="PQ" value="1.8"/> <referenceRange> <observationRange> <text>1.0-4.0</text&gt ; </observationRange> </referenceRange> & lt;/observation> </component> <component> < observation moodCode="EVN" classCode="OBS"> < templateId root="2.16.840.1.609800.10.20.22.4.2" /> < id nullFlavor="NA" /> <code codeSystem="local&quot ; code="LY%" displayName="LYMPHOCYTE %" /&gt ; <statusCode code="completed" /> < effectiveTime value="563624185787" /> <value unit=&quot ;%" xsi:type="PQ" value="25.0" /> & lt;referenceRange> <observationRange> <text& gt;20-30</text> </observationRange> </ referenceRange> </observation> </component> < component> <observation moodCode="EVN" classCode=" OBS"> <templateId root="2.16.840.1.860484.10.20.22.4.2& quot; /> <id nullFlavor="NA" /> <code codeSystem="local" code="MANDIFF" displayName=" DIFFERENTIAL" /> <statusCode code="completed" /&gt ; <effectiveTime value="008553485594" /> < value unit="" xsi:type="PQ" value="MANUAL" /> <referenceRange> <observationRange> <text /> </observationRange> </ referenceRange> </observation> </component> < component> <observation moodCode="EVN" classCode=" OBS"> <templateId root="2.16.840.1.855034.10.20.22.4.2& quot; /> <id nullFlavor="NA" /> <code codeSystem="local" code="MO#" displayName="MONOCYTE #& quot; /> <statusCode code="completed" /> < effectiveTime value="568446475602" /> <value unit=&quot ;k/cumm"xsi:type="PQ" value="0.2" /> < referenceRange> <observationRange> <text> 0.1-1.0</text> </observationRange> </ referenceRange> </observation> </component> < component> <observation moodCode="EVN" classCode=" OBS"> <templateId root="2.16.840.1.103011.10.20.22.4.2& quot; /> <id nullFlavor="NA" /> <code codeSystem="local" code="MO%" displayName=" MONOCYTE %" /> <statusCode code="completed&quot ; /> <effectiveTime value="774675486638" /> <value unit="%" xsi:type="PQ" value="3.0& quot; /> <interpretationCode codeSystem="local" code=& quot;*" /> <referenceRange> < observationRange> <text>4-6</text> </ observationRange> </referenceRange> </observation&gt ; </component> <component> <observation moodCode ="EVN" classCode="OBS"> <templateId root=& quot;[id number]" /> <id nullFlavor=&quot ;NA" /> <code codeSystem="local" code="RMORPH " displayName="RBC MORPH" /> <statusCode code=&quot ;completed" /> <effectiveTime value="[id number]&quot ; /> <value unit="" xsi:type="PQ" value=&quot ;NOTED" /> <referenceRange> < observationRange> <text /> </ observationRange> </referenceRange> </observation&gt ; </component> <component> <observation moodCode ="EVN" classCode="OBS"> <templateId root=& quot;[id number]" /> <id nullFlavor=&quot ;NA" /> <code codeSystem="local" code="SEG& amp;#37;" displayName="SEGMENTED NEUTROPHIL %" /> <statusCode code="completed" /> < effectiveTime value="[id number]" /> <value unit=&quot ;%" xsi:type="PQ" value="70" /> &lt ;referenceRange> <observationRange> <text&gt ;50-70</text> </observationRange> </ referenceRange> </observation> </component> < component> <observation moodCode="EVN" classCode=" OBS"> <templateId root="2.16.840.1.339721.10.20.22.4.2& quot; /> <id nullFlavor="NA" /> <code codeSystem="local" code="REACTIVELYMPH" displayName=" REACTIVE LYMPH" /> <statusCode code="completed" /& gt; <effectiveTime value="688510711320" /> &lt ;value unit="" xsi:type="PQ" value="NOTED" />& lt;referenceRange> <observationRange> <text /> </observationRange> </referenceRange> </observation> </component> </organizer> </ entry> <entry> <organizer moodCode="EVN" classCode=& quot;BATTERY"> <templateId root=" 2.16.840.1.297681.10.20.22.4.1" /> <id nullFlavor="NA&quot ; /> <code codeSystem="local" code="METAB" displayName="METABOLIC PANEL, BASIC" /> <statusCode code=& quot;completed" /> <component> <observation moodCode="EVN" classCode="OBS"> <templateId root="2.16.840.1.333855.10.20.22.4.2" /> <id nullFlavor=& quot;NA" /> <code codeSystem="local" code="K& quot; displayName="POTASSIUM" /> <statusCode code=&quot ;completed" /> <effectiveTime value="001776634215&quot ; /> <value unit="mmol/L" xsi:type="PQ" value ="4.0" /> <referenceRange> < observationRange> <text>3.5-5.3</text> & lt;/observationRange> </referenceRange> </ observation> </component> <component> < observation moodCode="EVN" classCode="OBS"> < templateId root="2.16.840.1.356966.10.20.22.4.2" /> < id nullFlavor="NA" /> <code codeSystem="local&quot ; code="eGFR" displayName="EST GFR (MDRD)" /> & lt;statusCode code="completed" /> <effectiveTime value=" 721615922757" /> <value unit="mL/min" xsi:type=& quot;PQ" value="55" /> <interpretationCode codeSystem="local" code="*" /> < referenceRange> <observationRange> <text> > 59</text> </observationRange> </ referenceRange> </observation> </component> < component> <observation moodCode="EVN" classCode="OBS&quot ;> <templateId root="2.16.840.1.937407.10.20.22.4.2" /& gt; <id nullFlavor="NA" /> <code codeSystem=& quot;local" code="GAP" displayName="ANION GAP" /> <statusCode code="completed" /> < effectiveTime value="433924176870" /> <value unit=&quot ;mmol/L" xsi:type="PQ" value="7" /> < referenceRange> <observationRange> <text> 5-15</text> </observationRange> </ referenceRange> </observation> </component> < component> <observation moodCode="EVN" classCode=" OBS"> <templateId root="2.16.840.1.718281.10.20.22.4.2& quot; /> <id nullFlavor="NA" /> <code codeSystem="local" code="eCrCl" displayName="EST CrCl ( CG)" /> <statusCode code="completed" /> <effectiveTime value="006948247862" /> <value unit="mL/min" xsi:type="PQ" value="59" /> <interpretationCode codeSystem="local" code="*" /> <referenceRange> <observationRange> & lt;text>> 59</text> </observationRange> </referenceRange> </observation> </component> < component> <observation moodCode="EVN" classCode=" OBS"> <templateId root="2..840.1.162795.10..22.4.2& quot; /> <id nullFlavor="NA" /> <code codeSystem="local" code="GLU" displayName="GLUCOSE&quot ; /> <statusCode code="completed"/> < effectiveTime value="264646024532" /> <value unit=&quot ;mg/dL" xsi:type="PQ" value="234" /> < interpretationCode codeSystem="local" code="*" /> <referenceRange> <observationRange> < text>70-99</text> </observationRange> </ referenceRange> </observation> </component> < component> <observation moodCode="EVN" classCode=" OBS"> <templateId root="2.16.840.1.819200.10.20.22.4.2& quot; /> <id nullFlavor="NA" /> <code codeSystem="local" code="CA" displayName="CALCIUM&quot ; /> <statusCode code="completed" /> < effectiveTime value="785929504511" /> <value unit=&quot ;mg/dL" xsi:type="PQ" value="9.0" /> < referenceRange> <observationRange> <text>8.5-10.1</ text> </observationRange> </referenceRange> </observation> </component> <component> <observation moodCode="EVN" classCode="OBS"> <templateId root="2.16.840.1.148916.10.20.22.4.2" /> <id nullFlavor="NA" /> <code codeSystem=" local" code="BUN" displayName="BLOOD UREA NITROGEN" /& gt; <statusCode code="completed" /> < effectiveTime value="330475303709" /> <value unit=&quot ;mg/dL" xsi:type="PQ" value="15" /> < referenceRange> <observationRange> <text> 7-20</text> </observationRange> </ referenceRange> </observation> </component> < component> <observation moodCode="EVN" classCode=" OBS"> <templateId root="2.16.840.1.906344.10.20.22.4.2& quot; /> <id nullFlavor="NA" /> <code codeSystem="local" code="CREAT" displayName="CREATININE " /> <statusCode code="completed" /> & lt;effectiveTime value="506185930981" /> <value unit="mg/ dL" xsi:type="PQ" value="1.0" /> < referenceRange> <observationRange> <text> 0.6-1.0</text> </observationRange> </ referenceRange> </observation> </component> < component> <observation moodCode="EVN" classCode=" OBS"> <templateId root="2.16.840.1.837157.10.20.22.4.2& quot; /> <id nullFlavor="NA" /> <code codeSystem="local" code="NA" displayName="SODIUM" /> <statusCode code="completed" /> < effectiveTime value="444533697727" /> <value unit=&quot ;mmol/L" xsi:type="PQ" value="139" /> < referenceRange> <observationRange> <text>135-148 </text> </observationRange> </referenceRange& gt; </observation> </component> <component> <observation moodCode="EVN" classCode="OBS"> &lt ;templateId root="2.16.840.1.303967.10.20.22.4.2" /> < id nullFlavor="NA" /> <code codeSystem="local&quot ; code="CL" displayName="CHLORIDE" /> < statusCode code="completed" /> <effectiveTime value=& quot;185288742524" /> <value unit="mmol/L" xsi: type="PQ" value="106" /> <referenceRange> <observationRange> <text>98-110</text&gt ; </observationRange> </referenceRange> & lt;/observation> </component> <component> < observation moodCode="EVN" classCode="OBS"> < templateId root="2.16.840.1.031964.10.20.22.4.2" /> < id nullFlavor="NA" /> <code codeSystem="local" code="CO2" displayName="CARBON DIOXIDE" /> < statusCode code="completed" /> <effectiveTime value=& quot;207372420734" /> <value unit="mmol/L" xsi: type="PQ" value="26" /> <referenceRange> <observationRange> <text>21-32</text> & lt;/observationRange> </referenceRange> </ observation> </component> </organizer> </entry> & lt;entry> <organizer moodCode="EVN" classCode="BATTERY& quot;> <templateId root="2.16.840.1.782050.10.20.22.4.1" /& gt; <id nullFlavor="NA" /> <code codeSystem=" local" code="METAB" displayName="METABOLIC PANEL, BASIC&quot ; /> <statusCode code="completed" /> <component& gt; <observation moodCode="EVN" classCode="OBS"&gt ; <templateId root="2.16.840.1.623697.10.20.22.4.2" /> <id nullFlavor="NA" /> <code codeSystem=" local" code="K" displayName="POTASSIUM" /> &lt ;statusCode code="completed" /> <effectiveTime value=& quot;833830456836" /> <value unit="mmol/L" xsi: type="PQ" value="4.5" /> <referenceRange> <observationRange> <text>3.5-5.3</text& gt; </observationRange> </referenceRange> </ observation> </component> <component> < observation moodCode="EVN" classCode="OBS"> < templateId root="2.16.840.1.492472.10.20.22.4.2" /> < id nullFlavor="NA" /> <code codeSystem="local&quot ; code="eGFR" displayName="EST GFR (MDRD)" /> & lt;statusCode code="completed" /> <effectiveTime value= "149786039975" /> <value unit="mL/min" xsi: type="PQ" value="40" /> <interpretationCode codeSystem="local" code="*" /> < referenceRange> <observationRange> <text> > 59</text> </observationRange> </ referenceRange> </observation></component> < component> <observation moodCode="EVN" classCode=" OBS"> <templateId root="2.16.840.1.507277.10.20.22.4.2& quot; /> <id nullFlavor="NA" /> <code codeSystem="local" code="GAP" displayName="ANION GAP& quot; /> <statusCode code="completed" /> & lt;effectiveTime value="827650551334" /> <value unit=& quot;mmol/L" xsi:type="PQ" value="7" /> &lt ;referenceRange> <observationRange> <text>5-15& lt;/text> </observationRange> </referenceRange& gt; </observation> </component> <component> <observation moodCode="EVN" classCode="OBS"> & lt;templateId root="2.16.840.1.781325.10..22.4.2" /> &lt ;id nullFlavor="NA" /> <code codeSystem="local& quot; code="eCrCl" displayName="EST CrCl (CG)" /> <statusCode code="completed" /> <effectiveTime value="200170028222" /> <value unit="mL/min" xsi:type="PQ" value="46" /> < interpretationCode codeSystem="local" code="*" /> <referenceRange> <observationRange> <text& gt;> 59</text> </observationRange> </ referenceRange> </observation> </component> < component> <observation moodCode="EVN" classCode=" OBS"> <templateId root="2.16.840.1.046317.10.20.22.4.2& quot; /> <id nullFlavor="NA" /><code codeSystem=& quot;local" code="GLU" displayName="GLUCOSE" /> <statusCode code="completed" /> <effectiveTime value ="797898674291" /> <value unit="mg/dL" xsi: type="PQ" value="213" /> <interpretationCode codeSystem="local" code="*" /> <referenceRange> <observationRange> <text>70-99</text> </observationRange> </referenceRange> & lt;/observation> </component> <component> < observation moodCode="EVN" classCode="OBS"> < templateId root="2.16.840.1.566448.10.20.22.4.2" /> < id nullFlavor="NA" /> <code codeSystem="local&quot ; code="CA" displayName="CALCIUM" /> < statusCode code="completed" /> <effectiveTime value=& quot;331586464505" /> <value unit="mg/dL" xsi:type ="PQ" value="8.9" /> <referenceRange> <observationRange> <text>8.5-10.1</text> </observationRange> </referenceRange> < /observation> </component> <component> < observation moodCode="EVN" classCode="OBS"> < templateId root="2.16.840.1.370679.10.20.22.4.2" /> < id nullFlavor="NA" /> <code codeSystem="local&quot ; code="BUN" displayName="BLOOD UREA NITROGEN" /> <statusCode code="completed" /> <effectiveTime value="502605759739" /> <value unit="mg/dL" xsi:type="PQ" value="19" /> <referenceRange& gt; <observationRange> <text>7-20</text& gt; </observationRange> </referenceRange> </observation> </component> <component> &lt ;observation moodCode="EVN" classCode="OBS"> &lt ;templateId root="2.16.840.1.116971.10.20.22.4.2" /> < id nullFlavor="NA" /> <code codeSystem="local&quot ; code="CREAT" displayName="CREATININE" /> < statusCode code="completed" /> <effectiveTime value=& quot;958141856220" /> <value unit="mg/dL" xsi:type ="PQ" value="1.3" /> <interpretationCode codeSystem="local" code="*" /> < referenceRange> <observationRange> <text> 0.6-1.0</text> </observationRange> </ referenceRange> </observation> </component> < component> <observation moodCode="EVN" classCode=" OBS"> <templateId root="2.16.840.1.746817.10.20.22.4.2& quot; /> <id nullFlavor="NA" /> <code codeSystem="local" code="NA" displayName="SODIUM" /> <statusCode code="completed" /> < effectiveTime value="933988870775" /> <value unit=" mmol/L" xsi:type="PQ" value="137" /> < referenceRange> <observationRange> <text> 135-148</text> </observationRange> </ referenceRange> </observation> </component> < component> <observation moodCode="EVN" classCode=" OBS"> <templateId root="2.16.840.1.441203.10.20.22.4.2& quot; /> <id nullFlavor="NA" /> <code codeSystem="local" code="CL" displayName="CHLORIDE&quot ; /> <statusCode code="completed" /> < effectiveTime value="307113816961" /> <value unit=&quot ;mmol/L" xsi:type="PQ" value="105" /> < referenceRange> <observationRange> <text> 98-110</text> </observationRange> </ referenceRange> </observation> </component> < component> <observation moodCode="EVN" classCode=" OBS"> <templateId root="2.16.840.1.474242.10.20.22.4.2& quot; /> <id nullFlavor="NA" /> <code codeSystem="local" code="CO2" displayName="CARBON DIOXIDE" /> <statusCode code="completed" /> <effectiveTime value="747631050318" /> <value unit="mmol/L" xsi:type="PQ" value="25" /> <referenceRange> <observationRange> &lt ;text>21-32</text> </observationRange> </ referenceRange> </observation> </component> </ organizer> </entry> <entry> <organizer moodCode="EVN " classCode="BATTERY"> <templateId root=" 2.16.840.1.000961.10.20.22.4.1" /> <id nullFlavor="NA&quot ; /> <code codeSystem="local" code="CBC" displayName="CBC" /> <statusCode code="completed&quot ; /> <component> <observation moodCode="EVN" classCode="OBS"> <templateId root=" 2.16.840.1.824853.10.20.22.4.2" /> <id nullFlavor="NA& quot; /> <code codeSystem="local" code="MCH" displayName="MEAN CELL HGB" /> <statusCode code=" completed" /> <effectiveTime value="827802703038" /> <value unit="pg" xsi:type="PQ" value=&quot ;26.0" /> <interpretationCode codeSystem="local" code="*" /> <referenceRange> < observationRange> <text>27.0-33.0</text> </observationRange> </referenceRange> </observation&gt ; </component> <component> <observation moodCode ="EVN" classCode="OBS"> <templateId root=& quot;2.16.840.1.183190.10..22.4.2" /> <id nullFlavor=&quot ;NA" /> <code codeSystem="local" code="MCHC& quot; displayName="MEAN CELL HGB CONCENTRATION" /> < statusCode code="completed" /> <effectiveTime value=& quot;992652680050" /> <value unit="g/dL" xsi:type= "PQ" value="30.3" /> <interpretationCode codeSystem="local" code="*" /> <referenceRange> <observationRange> <text>32.0-37.0</text > </observationRange> </referenceRange> </observation> </component> <component> & lt;observation moodCode="EVN" classCode="OBS"> & lt;templateId root="2.16.840.1.216800.10.22.4.2" /> &lt ;id nullFlavor="NA" /> <code codeSystem="local& quot; code="MCV" displayName="MEAN CELL VOLUME" /> <statusCode code="completed" /> <effectiveTime value="000748471815" /> <value unit="fl" xsi: type="PQ" value="85.6" /> <referenceRange&gt ; <observationRange> <text>80.0-100.0</ text> </observationRange> </referenceRange> </observation> </component> <component> &lt ;observation moodCode="EVN" classCode="OBS"> &lt ;templateId root="2.16.840.1.828535.10.20.22.4.2" /> <id nullFlavor="NA" /> <code codeSystem="local" code="MPVT" displayName="MEAN PLATELET VOLUME" /> <statusCode code="completed" /> <effectiveTime value="623935455290" /> <value unit="fl" xsi: type="PQ" value="10.7" /> <referenceRange&gt ; <observationRange> <text>8.5-10.9</text > </observationRange> </referenceRange> </observation> </component> <component> & lt;observation moodCode="EVN" classCode="OBS"> & lt;templateId root="2.16.840.1.605074.10..22.4.2" /> &lt ;id nullFlavor="NA" /> <code codeSystem="local& quot; code="RBC" displayName="RED BLOOD CELL" /> <statusCode code="completed" /> <effectiveTime value ="622036630594" /> <value unit="m/cumm" xsi: type="PQ" value="4.43" /> <referenceRange> <observationRange> <text>4.00-6.00</text> </observationRange> </referenceRange> </ observation> </component> <component> < observation moodCode="EVN" classCode="OBS"> < templateId root="2.16.840.1.302254.10.20.22.4.2" /> < id nullFlavor="NA" /> <code codeSystem="local&quot ; code="RDW" displayName="RED CELL DISTRIBUTION WIDTH" /&gt ; <statusCode code="completed" /> < effectiveTime value="338441868429" /> <value unit=&quot ;%" xsi:type="PQ" value="14.0" /> & lt;referenceRange> <observationRange> <text>11.0- 15.6</text> </observationRange> </ referenceRange> </observation> </component> < component> <observation moodCode="EVN" classCode=" OBS"> <templateId root="2.16.840.1.851865.10.20.22.4.2&quot ; /> <id nullFlavor="NA" /> <code codeSystem="local" code="WBC" displayName="WHITE BLOOD CELL" /> <statusCode code="completed" />< effectiveTime value="202808351509" /> <value unit=&quot ;k/cumm" xsi:type="PQ" value="9.8" /> < referenceRange> <observationRange> <text> 5.0-10.0</text> </observationRange> </ referenceRange> </observation> </component> < component> <observation moodCode="EVN" classCode=" OBS"> <templateId root="2.16.840.1.080087.10.20.22.4.2& quot; /> <id nullFlavor="NA" /> <code codeSystem="local" code="HGBT" displayName="HEMOGLOBIN& quot; /> <statusCode code="completed" /> & lt;effectiveTimevalue="262018985359" /> <value unit=& quot;gm/dL" xsi:type="PQ" value="11.5" /> & lt;interpretationCode codeSystem="local" code="*" /> <referenceRange> <observationRange> & lt;text>12.0-16.0</text> </observationRange> </referenceRange> </observation> </component> <component> <observation moodCode="EVN" classCode=& quot;OBS"> <templateId root=" 2.16.840.1.690840.10.20.22.4.2" /> <id nullFlavor="NA& quot; /> <code codeSystem="local" code="HCTT&quot ; displayName="HEMATOCRIT" /> <statusCode code=" completed" /> <effectiveTime value="134408704696" /> <value unit="%" xsi:type="PQ" value="37.9" /> <referenceRange> < observationRange> <text>37.0-47.0</text> </observationRange> </referenceRange> </ observation> </component> <component> < observation moodCode="EVN" classCode="OBS"> < templateId root="2.16.840.1.084378.10.20.22.4.2" /> < id nullFlavor="NA" /> <code codeSystem="local&quot ; code="NRBC%" displayName="NRBC %" /> <statusCode code="completed" /> < effectiveTime value="002170077677" /> <value unit=&quot ;/100WBC" xsi:type="PQ" value="0.0" /> < referenceRange> <observationRange> <text> 0.0-0.0</text> </observationRange> </ referenceRange> </observation> </component> < component> <observation moodCode="EVN" classCode=" OBS"> <templateId root="2.16.840.1.124291.10.20.22.4.2& quot; /> <id nullFlavor="NA" /> <code codeSystem="local" code="PLTT" displayName="PLATELET COUNT" /> <statusCode code="completed" /> <effectiveTime value="092430371190" /><value unit=" k/cumm" xsi:type="PQ" value="186" /> < referenceRange> <observationRange> <text> 150-400</text> </observationRange> </ referenceRange> </observation></component> </ organizer> </entry> <entry> <organizer moodCode="EVN " classCode="BATTERY"> <templateId root=" 2.16.840.1.888236.10.20.22.4.1" /> <id nullFlavor="NA&quot ; /> <code codeSystem="local" code="UC" displayName="URINE CULTURE" /> <statusCode code=" completed" /> <component> <observation moodCode=& quot;EVN" classCode="OBS"> <templateId root=" 2.16.840.1.374254.10.20.22.4.2" /> <id nullFlavor="NA& quot; /> <code codeSystem="local" code="MB" displayName="Microbiology" /> <statusCode code=" completed" /> <effectiveTime value="039372310507" /> <value xsi:type="ST" value="<pre><b&gt ;URINE CULTURE</b> See BelowHold order until specimen collected? NoIndication for Culture: OtherOther: RECHECKDoes patient have a Lua? NoComment: RECHECK POST ANTIBIOTICSURINE CULTURE(F) Rishi Date/ Time: 09/16/2017 11:24 Radha Date/Time: 09/18/2017 11: 52SOURCE: URINESPEC DESC: CLEAN [id number] [facility] [place] [address]</pre>" /> < referenceRange> <observationRange> <text /& gt; </observationRange> </referenceRange> </ observation> </component> </organizer> </entry> & lt;entry> <organizer moodCode="EVN" classCode="BATTERY& quot;> <templateId root="2.16.840.1.944415.10.20.22.4.1" /& gt; <id nullFlavor="NA" /> <code codeSystem=" local" code="UA" displayName="URINALYSIS, ROUTINE" /&gt ; <statusCode code="completed" /> <component> <observation moodCode="EVN" classCode="OBS"> <templateId root="2.16.840.1.488038.10.20.22.4.2" /> <id nullFlavor="NA" /> <code codeSystem=" local" code="LEUESU" displayName="UA LEUKOCYTE ESTERASE DIPSTICK" /> <statusCodecode="completed" /> <effectiveTime value="981702564792" /> <value unit ="" xsi:type="PQ" value="NEGATIVE" /> <referenceRange> <observationRange> <text >NEGATIVE</text> </observationRange> </ referenceRange> </observation> </component> < component> <observation moodCode="EVN" classCode=" OBS"> <templateId root="2.16.840.1.130708.10.20.22.4.2& quot; /> <id nullFlavor="NA" /> <code codeSystem="local" code="NITRIU" displayName="UA NITRITE DIPSTICK" /> <statusCode code="completed" /> <effectiveTime value="448185995861" /> & lt;value unit="" xsi:type="PQ" value="NEGATIVE" /& gt; <referenceRange> <observationRange> <text>NEGATIVE</text> </observationRange> </referenceRange> </observation> </component> <component> <observation moodCode="EVN" classCode=& quot;OBS"> <templateId root=" 2.16.840.1.735867.10.20.22.4.2" /> <id nullFlavor="NA" /& gt; <code codeSystem="local" code="PROTEIU" displayName="UA PROTEIN DIPSTICK" /> <statusCode code=& quot;completed" /> <effectiveTime value="677729512407& quot; /> <valueunit="" xsi:type="PQ" value=& quot;NEGATIVE" /> <referenceRange> < observationRange> <text>NEGATIVE</text> & lt;/observationRange> </referenceRange> </ observation> </component> <component> < observation moodCode="EVN" classCode="OBS"> < templateId root="2.16.840.1.166614.10.20.22.4.2" /> < id nullFlavor="NA" /> <code codeSystem="local&quot ; code="DGLUU" displayName="UA GLUCOSE DIPSTICK" /> <statusCode code="completed" /> <effectiveTime value="399988157531" /> <value unit="" xsi: type="PQ" value="2+" /> <interpretationCode codeSystem="local" code="*" /> < referenceRange> <observationRange> <text> NEGATIVE</text> </observationRange> </ referenceRange> </observation> </component> < component> <observation moodCode="EVN" classCode=" OBS"> <templateId root="2.16.840.1.285912.10.20.22.4.2& quot; /> <id nullFlavor="NA" /> <code codeSystem="local" code="KETONU" displayName="UA KETONE DIPSTICK" /> <statusCode code="completed" / > <effectiveTime value="931635274917" /> & lt;value unit="" xsi:type="PQ" value="NEGATIVE" /& gt; <referenceRange> <observationRange> <text>NEGATIVE</text> </observationRange> </referenceRange> </observation> </component& gt; <component><observation moodCode="EVN" classCode=& quot;OBS"> <templateId root=" 2.16.840.1.627855.10.20.22.4.2" /> <id nullFlavor="NA& quot; /> <code codeSystem="local" code="UROBILU" displayName="UA UROBILINOGENDIPSTICK" /> <statusCode code="completed" /> <effectiveTime value=" 877993995747" /> <value unit="" xsi:type="PQ& quot; value="NORMAL" /> <referenceRange> <observationRange> <text>NORMAL</text> & lt;/observationRange> </referenceRange> </ observation> </component> <component> < observation moodCode="EVN" classCode="OBS"> < templateId root="2.16.840.1.122070.10..22.4.2" /> < id nullFlavor="NA" /> <code codeSystem="local&quot ; code="BILU" displayName="UA BILIRUBIN DIPSTICK" /> <statusCode code="completed" /> < effectiveTime value="624446255790" /> <value unit=&quot ;" xsi:type="PQ" value="NEGATIVE" /> < referenceRange> <observationRange> <text>NEGATIVE< /text> </observationRange> </referenceRange> </observation> </component> <component> <observation moodCode="EVN" classCode="OBS"> <templateId root="2.16.840.1.118867.10.20.22.4.2" /> <id nullFlavor="NA" /> <code codeSystem=" local" code="ZHANNA" displayName="UA BLOOD DIPSTICK" /&gt ; <statusCode code="completed" /> < effectiveTime value="002665414808" /> <value unit=&quot ;" xsi:type="PQ" value="NEGATIVE" /> < referenceRange> <observationRange> <text> NEGATIVE</text> </observationRange> </ referenceRange> </observation> </component> < component> <observation moodCode="EVN" classCode=" OBS"> <templateId root="2.16.840.1.748802.10.20.22.4.2& quot; /> <id nullFlavor="NA" /> <code codeSystem="local" code="SPGRU" displayName="UA SPECIFIC GRAVITY" /> <statusCode code="completed" /> <effectiveTime value="057100410154" /> & lt;value unit="" xsi:type="PQ" value="1.022" /&gt ; <referenceRange> <observationRange> & lt;text>1.015-1.025</text> </observationRange> </referenceRange> </observation> </component> <component> <observation moodCode="EVN" classCode ="OBS"> <templateId root=" 2.16.840.1.935920.10.20.22.4.2" /> <id nullFlavor="NA& quot; /> <code codeSystem="local" code="JUAN M" displayName="UR PH" /> <statusCode code="completed " /> <effectiveTime value="535463941861" /> <value unit="" xsi:type="PQ" value="6.0&quot ; /> <referenceRange> <observationRange> <text>5.0-7.0</text> </observationRange> </referenceRange> </observation> </ component> </organizer> </entry> <entry> < organizer moodCode="EVN" classCode="BATTERY"> < templateId root="[id number]" /> <id nullFlavor="NA" /> <code codeSystem="local" code= "879972" displayName="URINALYSIS, COMPLETE W/REFLEX TO CULTURE& quot; /> <statusCode code="completed" /> < component> <observation moodCode="EVN" classCode=" OBS"> <templateId root="[id number]& quot; /> <id nullFlavor="NA" /> <code codeSystem="local" code="" displayName="COLOR& quot; /> <statusCode code="completed" /> & lt;effectiveTime value="[id number]" /> <value unit=& quot;" xsi:type="PQ" value="YELLOW" /> < referenceRange> <observationRange> <text> YELLOW</text> </observationRange> </referenceRange> </observation> </component> <component> <observation moodCode="EVN" classCode="OBS"> <templateId root="2.16.840.1.650166.10..22.4.2" /> <id nullFlavor="NA" /> <code codeSystem=" local" code="704099" displayName="APPEARANCE" /> <statusCode code="completed" /> < effectiveTime value="224293735272" /> <value unit=&quot ;" xsi:type="PQ" value="CLEAR" /> < referenceRange><observationRange> <text>CLEAR</ text> </observationRange> </referenceRange> </observation> </component> <component> <observation moodCode="EVN" classCode="OBS"> <templateId root="2.16.840.1.479892.10.20.22.4.2" /> <id nullFlavor="NA" /> <code codeSystem=" local" code="040742" displayName="SPECIFIC GRAVITY" /& gt; <statusCode code="completed" /> < effectiveTime value="326550091683" /> <value unit=&quot ;" xsi:type="PQ" value="1.026" /> < referenceRange> <observationRange> <text> 1.001-1.035</text> </observationRange> </ referenceRange> </observation> </component> < component> <observation moodCode="EVN" classCode=" OBS"> <templateId root="2.16.840.1.981362.10.20.22.4.2& quot; /> <id nullFlavor="NA" /> <code codeSystem="local" code="463479" displayName="PH"/ > <statusCode code="completed" /> < effectiveTime value="679681067049" /> <value unit=&quot ;" xsi:type="PQ" value="5.5" /> < referenceRange> <observationRange> <text> 5.0-8.0</text> </observationRange> </ referenceRange> </observation> </component> < component> <observation moodCode="EVN" classCode=" OBS"> <templateId root="2.16.840.1.304591.10.20.22.4.2& quot; /> <id nullFlavor="NA" /> <code codeSystem="local" code="178838" displayName="GLUCOSE& quot; /> <statusCode code="completed" /> & lt;effectiveTime value="996615308477" /> <value unit=& quot;" xsi:type="PQ" value="3+" /> < interpretationCode codeSystem="local" code="*" /> <referenceRange> <observationRange> < text>NEGATIVE</text> </observationRange> < /referenceRange> </observation> </component> &lt ;component> <observation moodCode="EVN" classCode=" OBS"> <templateId root="2.16.840.1.624203.10..22.4.2& quot; /> <idnullFlavor="NA" /> <code codeSystem="local" code="865832" displayName="BILIRUBIN " /> <statusCode code="completed" /> < effectiveTime value="252252982698" /> <value unit=&quot ;" xsi:type="PQ" value="NEGATIVE" /> < referenceRange> <observationRange> <text> NEGATIVE</text> </observationRange> </ referenceRange> </observation> </component> < component> <observation moodCode="EVN" classCode=" OBS"> <templateId root="2.16.840.1.285567.10.20.22.4.2& quot; /> <id nullFlavor="NA" /> <code codeSystem="local" code="847781" displayName="KETONES& quot; /> <statusCode code="completed" /> & lt;effectiveTime value="218505649138" /> <value unit=& quot;" xsi:type="PQ" value="NEGATIVE" /> & lt;referenceRange> <observationRange> <text& gt;NEGATIVE</text> </observationRange> </ referenceRange> </observation> </component> < component> <observation moodCode="EVN" classCode=" OBS"> <templateId root="2.16.840.1.984283.10.20.22.4.2& quot; /> <id nullFlavor="NA" /> <code codeSystem="local" code="494486" displayName="OCCULT BLOOD" /> <statusCode code="completed" /> <effectiveTime value="255336339815" /> <value unit="" xsi:type="PQ" value="NEGATIVE" /> <referenceRange> <observationRange><text> NEGATIVE</text> </observationRange> </ referenceRange> </observation> </component> < component> <observationmoodCode="EVN" classCode="OBS "> <templateId root="2.16.840.1.361153.10.20.22.4.2& quot; /> <id nullFlavor="NA" /> <code codeSystem="local" code="997819" displayName="PROTEIN& quot; /> <statusCode code="completed" /> & lt;effectiveTime value="295502435698" /> <value unit=& quot;" xsi:type="PQ" value="TRACE" /> < interpretationCode codeSystem="local" code="*" /> <referenceRange> <observationRange> < text>NEGATIVE</text> </observationRange> </ referenceRange> </observation> </component> < component> <observation moodCode="EVN" classCode=" OBS"> <templateId root="2.16.840.1.028331.10.20.22.4.2& quot; /> <id nullFlavor="NA" /> <code codeSystem="local" code="322765" displayName="NITRITE& quot; /> <statusCode code="completed"/> &lt ;effectiveTime value="223222756638" /> <value unit=& quot;" xsi:type="PQ" value="NEGATIVE" /> & lt;referenceRange> <observationRange> <text> NEGATIVE</text> </observationRange> </ referenceRange> </observation> </component> < component> <observation moodCode="EVN" classCode=" OBS"> <templateId root="2.16.840.1.705571.10.20.22.4.2&quot ; /> <id nullFlavor="NA" /> <code codeSystem="local" code="192970" displayName=" LEUKOCYTE ESTERASE" /> <statusCode code="completed&quot ; /> <effectiveTime value="037748127184" /> &lt ;value unit="" xsi:type="PQ" value="NEGATIVE" /&gt ; <referenceRange> <observationRange> <text>NEGATIVE</text> </observationRange> </referenceRange> </observation> </component&gt ; <component> <observation moodCode="EVN" classCode="OBS"> <templateId root=" 2.16.840.1.977368.10.20.22.4.2" /> <id nullFlavor="NA& quot; /> <code codeSystem="local" code="739748& quot; displayName="WBC" /> <statusCode code=" completed" /> <effectiveTimevalue="933450383982" / > <value unit="/HPF" xsi:type="PQ" value=& quot;0-5" /> <referenceRange> < observationRange> <text>< OR=5</text> & lt;/observationRange> </referenceRange> </ observation> </component> <component> < observation moodCode="EVN" classCode="OBS"> < templateId root="2.16.840.1.155770.10.20.22.4.2" /> < id nullFlavor="NA" /> <code codeSystem="local" code=& quot;522628" displayName="RBC" /> <statusCode code=& quot;completed" /> <effectiveTime value="553715569263& quot; /> <value unit="/HPF" xsi:type="PQ" value="0-2" /> <referenceRange> < observationRange> <text>< OR=2</text> </observationRange> </referenceRange> </ observation> </component> <component> < observation moodCode="EVN" classCode="OBS"> < templateId root="2.16.840.1.690440.10.20.22.4.2" /> < id nullFlavor="NA" /> <code codeSystem="local&quot ; code="378510" displayName="SQUAMOUS EPITHELIAL CELLS" /&gt ; <statusCode code="completed" /> < effectiveTime value="472758978036" /> <value unit=&quot ;/HPF" xsi:type="PQ" value="6-10" /> < interpretationCode codeSystem="local" code="*" /> & lt;referenceRange> <observationRange> <text& gt;< OR=5</text> </observationRange> < /referenceRange> </observation> </component> &lt ;component> <observation moodCode="EVN" classCode=" OBS"> <templateId root="2.16.840.1.520010.10.20.22.4.2& quot; /> <id nullFlavor="NA" /> <code codeSystem="local" code="244690" displayName="BACTERIA& quot; /> <statusCode code="completed" /> & lt;effectiveTime value="906967647591" /> <value unit=& quot;/HPF" xsi:type="PQ" value="NONE SEEN" /> <referenceRange> <observationRange> < text>NONE SEEN</text> </observationRange> &lt ;/referenceRange> </observation> </component> &lt ;component> <observation moodCode="EVN" classCode=" OBS"> <templateId root="2.16.840.1.933004.10.20.22.4.2& quot; /> <id nullFlavor="NA" /> <code codeSystem="local" code="887907" displayName="HYALINE CAST" /> <statusCode code="completed" /> <effectiveTime value="353231876375" /> < valueunit="/LPF" xsi:type="PQ" value="NONE SEEN" / > <referenceRange> <observationRange> <text>NONE SEEN</text> </observationRange> </referenceRange> </observation> </component> <component> <observation moodCode="EVN" classCode= "OBS"> <templateId root=" 2.16.840.1.696281.10.20.22.4.2" /> <id nullFlavor="NA" /&gt ; <code codeSystem="local" code="422831" displayName="Misc. Result, see notes for description" /> & lt;statusCode code="completed" /> <effectiveTime value= "308534950937" /> <value unit="" xsi:type=&quot ;PQ" value="NO CULTURE INDICATED" /> < referenceRange> <observationRange> <text> NRG</text> </observationRange> </ referenceRange> </observation> </component> </ organizer> </entry></section> Encounters ACCT No. Visit Discharge Status Pt. Type Provider Facility Loc./Unit Complaint Date/Time [id number] 02/02/2015 02/02/2015 C[facility] Outpatie Karen, 15:30:00 23:59:59 nt Hamzah [id number] 10/03/2017 10/03/2017 CLS Outpatie ARELY CURTIS, 07:50:02 23:59:59 nt JHON Spangler [id number] 03/28/2017 03/29/2017 DIS Inpatien TRENT ESTRADA <PV2.3. 48 17:45:00 15:32:17 t L 2>HYPER GLYCEMIA&l t;/PV2.3.2 ><PV 2.3.2>S UICIDAL&lt ;/PV2.3.2& gt; [id number] 09/04/2017 09/16/2017 DIS Porsche Baldwin MD, Paul HickeyINF 872 12:57:00 13:00:00 nt [facility] [id number] 08/31/2017 09/03/2017 DIS Kartik Meléndez MD, Paul Hickey10TN 019 13:14:00 16:52:00 t [facility] [id number] 2017 2017 DIS Emergenc Emi Miller W.EDW 865 16:57:00 18:15:00 y MD [facility] [id number] 08/14/2017 08/14/2017 DIS Emergenc Paul Morfin DOEDW 043 11:45:00 12:58:00 y [facility] [id number] 07/13/2017 07/13/2017 DIS Emergenc Paul Underwood DO, W.EDW 832 22:20:00 23:19:00 y [facility] [id number] 02/23/2017 02/23/2017 DIS Emergenc Jg HickeyEDW 795 20:07:00 22:19:00 y Sandy CURTIS [facility] [id number] 02/12/2017 02/12/2017 DIS Emergenc Paul Leahy MDJUSTIN 555 14:35:00 16:14:00 y [facility] [id number] 01/24/2017 01/24/2017 DIS Emergenc Paul Scales MDEDW 585 18:05:00 20:45:00 y [facility] [id number] 01/22/2017 01/22/2017 DIS Emergenc Paul Kent MD, W.EDW 993 19:12:00 21:21:00 y [facility] [id number] 01/19/2017 01/19/2017 DIS Emergenc Secrist Paul FRANCOISEDW 451 18:27:00 [id number] 07/22/2014 07/25/2014 DIS Inpatien Paul Tovar DO10TS 158 15:57:00 14:13:00 t Kasi Boss [facility]
[2017-10-25 21:40] VITALS: BMI 27.8
[2017-10-25] MEDS ORDERED: HALOPERIDOL 0.5 MG TABLET PO PRN (22:12)
[2017-10-25] MEDS ORDERED: HALOPERIDOL 5 MG/ML INJECTION IM PRN (22:12)
[2017-10-25] MEDS ORDERED: IBUPROFEN 400 MG TABLET PO PRN (22:21)
[2017-10-25] MEDS: TRAZODONE 50 MG TABLET PO SCH (23:22)
[2017-10-25] MEDS: INSULIN GLARGINE 100unit/ml INJECTION SQ SCH (23:26)
[2017-10-26] MEDS ORDERED: GLUCOSE ORAL GEL 40% 37.5gm PO PRN (08:25)
--- NOTE | 2017-10-26 08:30 | History & Physical Report ---
History of Present Illness Date: 10/26/17 Chief complaint: Depression, suicidal ideation, diabetes HPI: Cristina De La Cruz is a 72-year-old female patient of Dr. Js Jones who was recently admitted to [facility] on 10/25/17 due to depression and suicidal ideation. She reports that she has had significant stress due to financial constraints which have resulted in her loosing her house and having to move to an apartment. She admits to struggling to make ends meet with her social security money each month and has no money to pay past bills with multiple outstanding loans. She has become more depressed and admits to suicidal ideation with a plan of overdosing on her home insulin. She was previously on Zoloft but was recently changed to Prozac on 10/23/17 by her primary doctor. She also reports a history of chronic back pain and fibromyalgia which she was previously treated with norco but states that her primary doctor will not refill her pain medications any longer. Because of that , she admits to recently taking one of her friend's methadone pills to see if it helped with her pain. Due to her depression with suicidal ideation, she was briefly admitted to [facility] and then transferred to [facility] unit for further psychiatric evaluation and treatment. Labs were obtained at [facility] which revealed mild hyponatremia (Na 134) and were otherwise unremarkable. Cholesterol was noted to be elevated (Chol 205). TSH was borderline low at 0.73 and A1c was 5.7%. She has a history of insulin dependent diabetes and takes NovoLog 10 units with meals and Lantus 33 units at night. She also has a history of hypertension, insomnia, osteopenia and chronic kidney disease for which the hospitalist service was consulted for medical management. Review of Systems All systems PM: 10-point ROS was reviewed, no additional remarkable complaints except - Constitutional Constitutional: Present: headache(s) (chronic). Absent: chills, fever(s), weakness - EENMT Eyes: Absent: blurry vision, diplopia, photophobia Ears: Absent: ear pain Balance: Absent: vertigo, falling to one side Nose: Absent: nosebleeds Mouth/Throat: Present: dry mouth. Absent: sore throat, changes in swallowing - Cardiovascular Cardiovascular: Absent: chest pain, palpitations, syncope, dyspnea on exertion, orthopnea, edema Rhythm: Present: regular rhythm Vascular: Absent: pallor of an extermity, pedal edema - Respiratory Respiratory: Absent: cough, dyspnea, hemoptysis, dyspnea on exertion, wheezing, pain on inspiration, chest congestion - Gastrointestinal Gastrointestinal: Present: constipation. Absent: abdominal pain, diarrhea, melena, nausea, vomiting - Genitourinary Genitourinary: Absent: dysuria, flank pain, hematuria Menstruation: post hysterectomy - Musculoskeletal Musculoskeletal: Present: back pain (chronic), myalgias. Absent: abnormal gait , deformity, muscle weakness - Integumentary/Breasts Integumentary: Absent: rash - Neurological Neurological: Absent: confusion, convulsions, dizziness, focal weakness, tremor( s), weakness - Psychiatric Psychiatric: Present: abnormal sleep pattern, anxiety, depression, hopelessness - Endocrine Endocrine: Absent: flushing, palpitations - Hematologic/Lymphatic Hematologic/Lymphatic: Absent: easy bruising - Allergic/Immunologic Allergic/Immunologic: Absent: seasonal rhinorrhea Past Medical History Patient Stated Medical History Depression with anxiety. Insulin dependent diabetes - A1c 5.7 on 10/25/17. Hypertension. Hyperlipidemia. Chronic kidney disease, stage III - GFR 46. Chronic pain. Fibromyalgia. Chronic headaches - migraine and tension. Gastroparesis. Chronic insomnia. Osteopenia. History of ESBL. Surgical History: ORIF left ankle - Dr. Jones, 10/2014. Hysterectomy. Appendectomy. Total knee replacement. Cholestectomy. Adrenalectomy. Family History Updates: Mother - , lung cancer. Father - , alcohol abuse. - Social History Smoking status: Never smoker Substance use type: does not use, other (history of narcotic use for chronic pain, recently discontinued per PCP - tried a friends methadone.) Alcohol intake frequency: does not drink Housing: apartment Household members: significant other Current occupational status: unemployed, disabled Does patient use chewing tobacco?: No Current residence: Apartment/Private Home Social history: PCP - Dr. Js Jones. Medications Home Medications Medication Instructions Recorded Confirmed Type Acetaminophen [Tylenol] 650 - 975 mg PO QID 10/25/17 10/25/17 History FLUoxetine 40 mg PO DAILY 10/25/17 10/25/17 History Ibuprofen 400 mg PO QID 10/25/17 10/25/17 History Insulin Detemir [Levemir] 33 units SQ HS 10/25/17 10/25/17 History LORazepam [Ativan] 1 mg PO Q4H 10/25/17 10/25/17 History Lantus 33 unit SQ HS 10/25/17 10/25/17 History NovoLOG 10 unit SQ AC 10/25/17 10/25/17 History Ondansetron HCl [Zofran] 4 mg PO Q30MIN MDD 12 mg. 10/25/17 10/25/17 History Allergies Allergy/AdvReac Type Severity Reaction Status Date / Time nitrofurantoin Allergy Severe Muscle Verified 10/25/17 21:37 [From Macrodantin] Cramping Penicillins Allergy Intermediate Hives Verified 10/25/17 21:37 Exam Vital Signs: Temperature 97.2 F 10/25/17 21:28 Pulse Rate 82 10/26/17 07:12 Respiratory Rate 20 10/26/17 07:12 Blood Pressure 142/71 H 10/25/17 21:28 Pulse Oximetry 96 10/26/17 07:12 Height/Weight/BMI: Height 5 ft 8 in Weight 182 lb 15.739 oz Body Mass Index 27.8 Comments: Patient initially seen while sleeping and later seen while eating lunch in the day room. - Constitutional Present: no acute distress, well nourished, well developed, cooperative - Routine HEENT Exam Head: Present: normocephalic Eye: Present: PERRL. Absent: conjunctival icterus ENT: Present: mucous membranes moist, oropharynx clear Comments: dentures. - Routine Neck Exam Present: supple, full ROM, trachea midline. Absent: meningismus - Routine Chest/Breast/Axilla Exam Chest wall: Absent: pacemaker - Routine Respiratory Exam Present: CTA bilaterally. Absent: rales, respiratory distress, rhonchi, stridor , wheezes, crackles - Routine Cardiovascular Exam Present: RRR, S1, S2 - Routine Abdominal Exam Present: soft, normoactive bowel sounds, non distended, non tender - Routine Extremities Exam Present: no edema, non tender, full ROM, pulses intact - Routine Back/Spine/Pelvis Exam Back/Spine: Present: full ROM. Absent: vertebral tenderness Comments: generalized tenderness across lower back, bilaterally - similar to chronic pain without radiation; no saddle anesthesia or groin numbness. - Routine Skin Exam Present: intact, dry, warm. Absent: jaundice - Routine Neurological Exam Present: alert, oriented X3, CN II-XII intact, moving all extremities, hearing grossly intact, normal speech - Routine Psychiatric Exam Present: normal affect, cooperative, depressed Results - Labs Labs: Lab results from [facility] on 10/25/17: WBC 6.9. HGB 12.2. Plt 166. Na 134 - hyponatremia. K 4.5. BUN 24 SCr 1.15. GFR 46. Chol 205 - elevated. Tri 280 - elevated. A1c 5.7. TSH 0.73. UA 2+ glucose, 1+ protein. UDS + opiate, + methadone. Assessment and Plan (1) Depression Current visit: Yes Status: Acute (2) Suicidal ideation Current visit: Yes Status: Acute Assessment and Plan: Assessment: Suicidal ideation. Depression with anxiety. Hypernatremia - prior to admission. Insulin dependent diabetes - A1c 5.7 on 10/25/17. Hypertension. Hyperlipidemia. Chronic kidney disease, stage III - GFR 46. Chronic pain. Fibromyalgia. Chronic headaches - migraine and tension. Gastroparesis. Chronic insomnia. Osteopenia. History of ESBL. Plan - 10/26/17: [facility] with [facility] to [facility] for further psychiatric evaluation and treatment. Hospitalist service consulted for medical management. Extensive review of prior medical records provided from [facility] completed. Labs obtained at [facility] - revealed hyponatremia (Na 134) and elevated cholesterol. Initiate Lipitor 40mg QHS for hyperlipidemia as well as ASA 81mg daily for heart protection. Blood pressure slightly elevated on admission. Monitor trends. Consider initiation of Lisinopril if persistent hypertension. Monitor blood sugars closely. Continue home novolog 10 units with meals and lantus 33 units at night. Given CKD and history of DM, avoid NSAIDS (ibuprofen). Tylenol PRN pain. History of prior opiate pain control which PCP recently discontinued. Concern for possible opiate withdrawal. Monitor closely for symptoms of withdrawal. Patient admitted taking friends methadone. Concern for medication abuse potential. Recommend avoid narcotics and benzos as able due to abuse potential. Will initiate gabapentin 100mg po TID for assistance with pain control. Will titrate up as tolerated. [place] Q6 PRN break through pain. Will check labs in AM including CBC, CMP, B12 to monitor blood counts, electrolytes and renal function. Upon discharge, patient's care will be returned to her PCP. Resuscitation Status: Full Code - Time spent with patient Time with patient PN: 50 minutes - Physician Narrative Physician: Elaina Burnett MD Narrative: Date: 10/26/17 Time: 1400 The pt was interviewed and examined by me. She is very depressed and tearful. Her back is hurting quite a lot. She injured it as a child and has had problems ever since. In addition, she had an adrenalectomy done through the back and she thinks that made things worse. Her PCP took her off her [place] that she felt worked pretty well. She also has fibromyalgia with diffuse chronic pain. He told her she needed to go to one of the pain management clinics in [place] but she has never heard back as to when an appt might be. She has had a number of stressors recently. Her of 30+ years in 2005. He was diagnosed with brain cancer in 2000. 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 Since then she has struggled to make ends meet and she recently had to move out of her home into an appt. She is not sleeping at night as her mind will not shut off. She denies recent illness. No fevers, chills, cough or sputum. No lightheadedness, dizziness. She does get "migraines" when her pain is really bad. She denies SOA, ADAMS, Chest pain, pressure or tightness. No Palp. She denies N/V/D/C/M/H. No symptoms. On physical exam: Gen: alert and oriented. NAD, clearly depressed Skin: warm and dry HEENT: NC/AT PERRL, EOMI, Sclera, lids and conjunctiva wnl. MMM. OP clear. Neck: No JVD, Carotids 2+ without bruits Lungs: clear. No rales, rhonchi or wheezes CV: regular. No murmur, rub or gallop Abd: soft. +BS. NT/ND MS: No edema. Good strength and ROM Neuro: No focal deficits Psy: Appropriate mood and affect Medical history includes DM, CAD with h/o OH and stents x2 3-4 years ago in [place], HLP, depression, chronic pain, fibromyalgia, anxiety, frequent UTIs (E coli twice in the last year). Surgeries: L cataract, R TKA, HC with stents, Heidi, Appy, hyst. adrenalectomy, ORIF left ankle Family history: Mom at 48 of a stroke, Dad at 86 of "old age". Social history: pt is a , never smoked, No ETOH or illegal drug use. Does all her ADLs. Assessment and Plan: 1. Chronic pain -Pt may benefit from PT for her back and other pain issues -Start gabapentin and norco -When she is discharged, we need to arrange an appt with pain management and give her enough [place] to get her through until that appt can be kept and she can get on a good regimen with them 2. Depression -Pt started on effexor, prozac dc's. -she would benefit from chronic counseling. 3. CAD -Agree with starting ASA and statin 4. DM -SSI -ASA, Statin -A1C at [facility] 5.7 on 10/25/17 5. HTN -Pt denies h/o HTN but she is a bit high here -Would start low dose CORRINA I for this as well as for her as her DM -Watch creatinine while starting it 6. Insomnia -Trazodone 50mg q hs 7. Prophylaxis -Ambulate TID Pt was discussed at length with Elaine WYLIE. Plan was formed together. I agree with her assessment and plan and have provided my own information as well. Hospital Course Summary Disclaimer: The visit summary below is not to be considered part of the above Progress Note. Hospital Course: Plan - 10/26/17: Agree with admission to [facility] for further psychiatric evaluation and treatment. Hospitalist service consulted for medical management. Extensive review of prior medical records provided from [facility] completed. Labs obtained at [facility] - revealed hyponatremia (Na 134) and elevated cholesterol. Initiate Lipitor 40mg QHS for hyperlipidemia as well as ASA 81mg daily for heart protection. Blood pressure slightly elevated on admission. Monitor trends. Consider initiation of Lisinopril if persistent hypertension. Monitor blood sugars closely. Continue home novolog 10 units with meals and lantus 33 units at night. Given CKD and history of DM, avoid NSAIDS (ibuprofen). Tylenol PRN pain. History of prior opiate pain control which PCP recently discontinued. Concern for possible opiate withdrawal. Monitor closely for symptoms of withdrawal. Patient admitted taking friends methadone. Concern for medication abuse potential. Recommend avoid narcotics and benzos as able due to abuse potential. Will initiate gabapentin 100mg po TID for assistance with pain control. Will titrate up as tolerated. [place] Q6 PRN break through pain. Will check labs in AM including CBC, CMP, B12 to monitor blood counts, electrolytes and renal function. Upon discharge, patient's care will be returned to her PCP.
[2017-10-26] MEDS: ASPIRIN 81 MG CHEWABLE TABLET PO SCH (09:19)
[2017-10-26] MEDS: ACETAMINOPHEN 325 MG TABLET PO PRN ×2 (09:22→18:43)
[2017-10-26] MEDS: INSULIN ASPART 100unit/ml INJECTION SQ SCH ×3 (09:44→17:23)
[2017-10-26] MEDS: LORazepam 0.5 MG TABLET PO PRN ×2 (12:31→18:46)
--- NOTE | 2017-10-26 12:34 | 24 Hour Neuropsychiatic Eval ---
Date of Admission: 10/25/17 20:29 Chief complaint: "I wish I was " History of Present Illness: HPI: 72 Y/O CF with a hx of depression, anxiety and chronic pain sent from [place] ED for S/I. Pt's home health nurse became concerned as pt made a suicidal statement to her and called the police. On face to face the pt is pleasant and she is fairly cognitively intact. She states she has been dealing with numerous stressors over the last two weeks and had thoughts of ending her life. She denies S/I at this time. STRESSORS: Pt states she ran out of savings and now only has her SSI. Due to this she lost her home and had to move to an apartment 2 weeks ago. It appears she may have been abusing her opiates and her PCP stopped them several days ago. She also takes Ativan 1mg PO Q6PRN and it is unclear if she has been abusing this as well. She also has chronic back pain issues. PSYCH ROS: Pt reports feeling depressed with low interest, low energy, low motivation, anhedonia and difficulty falling asleep. She reports morbid thoughts much of the time. She states these all have worsened over the last two weeks. She reports high anxiety and panic type symptoms at times. She denies amadeo or psychosis. PAST PSYCH: Pt's depression started in 2000 when her was diagnosed with cancer. He in 2005. Pt had been on Zoloft for years and was recently changed to Prozac by her PCP. She is also taking Ativan PRN. She has been on Xanax in the past. She denies ever trying to harm herself and has never been in a psych hospital. Never seen a psychiatrist SUBSTANCE ABUSE: Denies SOCIAL HX: Born in [place]. Denies hx of abuse. Has 3 children but only the daughter in [place] is supportive. HS grad. [employer] Patient Stated Medical History Migraine Yes: chronic tension headaches Multiple Sclerosis Yes Dental Problems Yes: wears dentures Myocardial Infarction Yes: per pt. report "about 3 years ago" - not found on H&P Diabetes Mellitus Type 1 Yes Other GI Yes: gastroparesis d/t DM Other Yes: hx. of acute kidney injury Other Musculoskeletal Yes: osteopenia; lumbar strain Other Infectious Yes: ESBL; antimicrobial resistant organism Depression Yes Surgical History: ORIF left ankle - Dr. Jones, 10/2014. Hysterectomy. Appendectomy. Total knee replacement. Cholestectomy. Adrenalectomy. Family History Updates: Mother - , lung cancer. Father - , alcohol abuse. - Social History Smoking status: Never smoker Substance use type: does not use, other (history of narcotic use for chronic pain, recently discontinued per PCP - tried a friends methadone.) Alcohol intake frequency: does not drink Housing: apartment Household members: significant other Current occupational status: unemployed, disabled Does patient use chewing tobacco?: No Current residence: Apartment/Private Home Review of Systems - Musculoskeletal Musculoskeletal: Present: back pain - Psychiatric Psychiatric: Present: abnormal sleep pattern, anxiety, depression, hopelessness , panic attacks, suicidal ideation Mental Status Exam Vitals: Last Vital Signs Temp 97.4 F 10/26/17 09:30 Pulse 79 10/26/17 09:30 Resp 18 10/26/17 09:30 BP 152/81 H 10/26/17 09:30 Pulse Ox 95 10/26/17 09:30 Height: 1.73 m Weight: 83 kg - Mental Status Exam Muscle Strength/Tone: Normal Dressing: Casual Grooming: Good Attitude: Cooperative Motor Activity: Retardation Eye Contact: Fair Speech: Slowed Volume: Soft Rhythm: Appropriate Rhythm Orientation: Oriented X4 Mood: Depressed Affect: Sad, Anxious Rate of Thoughts: Appropriate Rate Thought Organization: Organized Associations: Intact Abstract Reasoning: Intact, able to abstract Thought Content: Hopelessness, Helplessness, Worthlessness Perception/Psychotic: Perception Normal Language: Naming Intact Fund of Knowledge: Appropriate Memory: Grossly Intact Suicidal Ideation: Intermittent Homicidal Ideation: None Insight: Poor Judgement: Poor Impulse Control: Poor - Laboratory Laboratory Results - last 24 hr 10/25/17 10/26/17 22:29 06:08 Glucometer 122 172 Assessment and Plan (1) Major depressive disorder with current active episode Qualifiers: Major depression recurrence: recurrent Major depression episode severity: severe Psychotic features: without psychotic features Qualified Code(s): F33.2 - Major depressive disorder, recurrent severe without psychotic features Problem details: with anxious distress Current visit: Yes Status: Acute Discussed medication options. Discussed Cymbalta for help with depression and pain but pt feels she could not afford it. Discussed using Effexor instead and pt is in agreement. Will start Effexor XR 37.5mg daily. Will D/C Prozac. Will start Trazodone 50mg PO QHS to target sleep. Discussed with medical team about use of Gabapentin which I agree could help with anxiety and pain. Would try to minimize use of benzo's and opiates.
[2017-10-26] MEDS ORDERED: HYDROCODONE/APAP 7.5 MG/325 MG TABLET PO ONE (14:43)
[2017-10-26] MEDS: GABAPENTIN 100 MG CAPSULE PO SCH ×3 (15:35→21:04)
[2017-10-26] MEDS: LISINOPRIL 2.5 MG TABLET PO SCH (15:38)
[2017-10-26] MEDS: TRAZODONE 50 MG TABLET PO SCH ×2 (19:38→21:04)
[2017-10-26] MEDS: ATORVASTATIN 40 MG TABLET PO SCH ×2 (19:38→21:06)
[2017-10-26] MEDS: INSULIN GLARGINE 100unit/ml INJECTION SQ SCH ×2 (19:39→21:04)
[2017-10-26] MEDS: INSULIN ASPART 100unit/ml INJECTION SQ PRN (20:19)
[2017-10-26] MEDS ORDERED: INSULIN GLARGINE SQ SCH (21:00)
[2017-10-26] MEDS: HYDROCODONE/APAP 7.5 MG/325 MG TABLET PO PRN (21:09)
[2017-10-27] MEDS: GABAPENTIN 100 MG CAPSULE PO SCH ×3 (10:19→20:59)
[2017-10-27] MEDS: ASPIRIN 81 MG CHEWABLE TABLET PO SCH (10:20)
[2017-10-27] MEDS: LISINOPRIL 2.5 MG TABLET PO SCH (10:20)
[2017-10-27] MEDS: Venlafaxine XR 37.5 MG CAPSULE (24hr) PO SCH (10:20)
[2017-10-27] MEDS: INSULIN ASPART 100unit/ml INJECTION SQ SCH ×3 (10:26→17:16)
[2017-10-27] MEDS: HYDROCODONE/APAP 7.5 MG/325 MG TABLET PO PRN ×3 (10:27→23:00)
[2017-10-27] MEDS: ACETAMINOPHEN 325 MG TABLET PO PRN (14:37)
--- NOTE | 2017-10-27 16:55 | Neuropsych Progress Note ---
[facility] Subjective Date: 10/27/17 - Sujective/Severity of Illness Medications: Acetaminophen (Tylenol) 325 - 650 mg PO Q5H PRN PRN Reason: Discomfort Last Admin: 10/27/17 14:37 Dose: 650 mg Hydrocodone Bitart/Acetaminophen ([place] 7.5/325) 1 tab PO Q6H PRN PRN Reason: Pain Last Admin: 10/27/17 10:27 Dose: 1 tab Aspirin (Asa) 81 mg PO DAILY [facility] Last Admin: 10/27/17 10:20 Dose: 81 mg Atorvastatin Calcium (Lipitor) 40 mg PO HS [facility] Last Admin: 10/26/17 21:06 Dose: Not Given Gabapentin (Neurontin) 100 mg PO TID [facility] Last Admin: 10/27/17 15:31 Dose: 100 mg Glucose (Glutose 15) 37.5 gm PO PRN PRN PRN Reason: Hypoglycemia Haloperidol (Haldol) 0.5 mg PO Q6H PRN PRN Reason: Extreme agitation Haloperidol Lactate (Haldol) 0.5 mg IM Q6H PRN PRN Reason: Extreme agitation Insulin Aspart (Novolog) 10 unit SQ AC15 [facility] Last Admin: 10/27/17 12:45 Dose: 10 unit Insulin Aspart (Novolog) 1 - 5 unit SQ SS PRN; Protocol PRN Reason: Hyperglycemia Last Admin: 10/26/17 20:19 Dose: 3 unit Insulin Glargine (Lantus) 33 unit SQ HS [facility] Last Admin: 10/26/17 21:04 Dose: Not Given Lisinopril (Prinivil) 2.5 mg PO DAILY [facility] Last Admin: 10/27/17 10:20 Dose: 2.5 mg Lorazepam (Ativan) 0.5 mg PO Q6H PRN PRN Reason: Extreme agitation Last Admin: 10/26/17 18:46 Dose: 0.5 mg Lorazepam (Ativan Inj) 0.5 mg IM Q6H PRN PRN Reason: Extreme agitation Trazodone HCl (Desyrel) 50 mg PO HS [facility] Last Admin: 10/26/17 21:04 Dose: Not Given Venlafaxine HCl (Effexor Xr) 37.5 mg PO WB [facility] Last Admin: 10/27/17 10:20 Dose: 37.5 mg Subjective: Patient seen and chart reviewed. Case discussed with treatment team. On interview, patient is pleasant and engaging. She states that she needs financial help because she is still responsible for a $300 utility bill from her apartment that she can't pay, and she doesn't know if she can provide her Rx. She reports continued sadness over losing her home but denies further SI. She also reports needing pain medications and needing assistance securing an appointment with pain mgmt. since her PCP will no longer prescribe narcotics. Patient denies any SI, HI or AVH. Patient denies any adverse side effects related to psychotropic medications. Nursing staff report patient has not had any significant behavioral difficulties on the unit though was tearful at times. Patient has been adherent with medications. Patient slept 6.5 hours overnight. VSS. Patient is eating well. Psychotropic PRNs required in the past 24 hours: Ativan 0.5mg PO x2 yesterday. Start Time: 10:40 Stop Time: 11:00 Mental Status Exam Vitals: Last Vital Signs Temp 99.0 F 10/27/17 15:56 Pulse 77 10/27/17 15:56 Resp 16 10/27/17 15:56 BP 123/65 10/27/17 15:56 Pulse Ox 96 10/27/17 15:56 Height: 1.73 m Weight: 83 kg - Mental Status Exam Muscle Strength/Tone: Normal Dressing: Casual Grooming: Good Attitude: Cooperative Motor Activity: Retardation Eye Contact: Fair Speech: Slowed Volume: Soft Rhythm: Appropriate Rhythm Orientation: Oriented X4 Mood: Depressed Affect: Sad Rate of Thoughts: Appropriate Rate Thought Organization: Organized Associations: Intact Abstract Reasoning: Intact, able to abstract Thought Content: Ruminations, Hopelessness, Helplessness, Worthlessness, Somatic Concerns Perception/Psychotic: Perception Normal Language: Naming Intact Fund of Knowledge: Appropriate Memory: Grossly Intact Suicidal Ideation: Intermittent Homicidal Ideation: Denies Insight: Poor Judgement: Poor Impulse Control: Poor - Laboratory Result Diagrams: 10/27/17 07:05 10/27/17 07:05 Laboratory Results - last 24 hr 10/26/17 10/27/17 10/27/17 20:16 07:05 07:05 WBC 7.6 RBC 4.38 Hgb 11.6 L Hct 36.5 MCV 83.3 MCH 26.5 MCHC 31.8 RDW Std Deviation 44.2 Plt Count 173 MPV 10.6 Immature Gran % (Auto) 0.1 Neut % (Auto) 56.5 Lymph % (Auto) 32.5 Day % (Auto) 6.4 Eos % (Auto) 4.1 H Baso % (Auto) 0.4 Neut # (Auto) 4.3 Lymph # (Auto) 2.5 Day # (Auto) 0.5 Eos # (Auto) 0.3 Baso # (Auto) 0.0 Abs Immat Gran (auto) 0.01 Turbidity < 20 Sodium 138 Potassium 4.6 Chloride 107 Carbon Dioxide 20 L Anion Gap 11 BUN 28.0 H Creatinine 1.3 H GFR Calculation 40 BUN/Creatinine Ratio 22 Glucose 225 H Glucometer 275 Calculated Osmolality 279 Calcium 9.5 Total Bilirubin 0.70 Icterus Index < 2 AST 13 L ALT 24 Alkaline Phosphatase 79 Total Protein 6.6 Albumin 3.8 Globulin 2.8 Albumin/Globulin Ratio 1.4 Specimen Hemolysis < 15 Assessment and Plan (1) Major depressive disorder with current active episode Qualifiers: Major depression recurrence: recurrent Major depression episode severity: severe Psychotic features: without psychotic features Qualified Code(s): F33.2 - Major depressive disorder, recurrent severe without psychotic features Problem details: with anxious distress Other medical problems: Chronic pain, CAD, DMII, HTN Current visit: Yes Status: Acute Continue current care and monitor response to Effexor, will discuss any additional social media strategist in regards to financial concerns with CM/SW. Hospital Course Summary Disclaimer: The visit summary below is not to be considered part of the above Progress Note. Hospital Course: Plan - 10/26/17: Agree with admission to [facility] for further psychiatric evaluation and treatment. Hospitalist service consulted for medical management. Extensive review of prior medical records provided from [facility] completed. Labs obtained at [facility] - revealed hyponatremia (Na 134) and elevated cholesterol. Initiate Lipitor 40mg QHS for hyperlipidemia as well as ASA 81mg daily for heart protection. Blood pressure slightly elevated on admission. Monitor trends. Consider initiation of Lisinopril if persistent hypertension. Monitor blood sugars closely. Continue home novolog 10 units with meals and lantus 33 units at night. Given CKD and history of DM, avoid NSAIDS (ibuprofen). Tylenol PRN pain. History of prior opiate pain control which PCP recently discontinued. Concern for possible opiate withdrawal. Monitor closely for symptoms of withdrawal. Patient admitted taking friends methadone. Concern for medication abuse potential. Recommend avoid narcotics and benzos as able due to abuse potential. Will initiate gabapentin 100mg po TID for assistance with pain control. Will titrate up as tolerated. [place] Q6 PRN break through pain. Will check labs in AM including CBC, CMP, B12 to monitor blood counts, electrolytes and renal function. Upon discharge, patient's care will be returned to her PCP. 10/26/17 Psych: Prozac discontinued, start Effexor XR 37.5mg PO daily. 10/27/17 Psych: Continue current care and monitor response to Effexor, will discuss any additional social media strategist in regards to financial concerns with CM/ SW.
[2017-10-27] MEDS: INSULIN ASPART 100unit/ml INJECTION SQ PRN (20:24)
[2017-10-27] MEDS: INSULIN GLARGINE 100unit/ml INJECTION SQ SCH (20:59)
[2017-10-27] MEDS: TRAZODONE 50 MG TABLET PO SCH (20:59)
[2017-10-27] MEDS: ATORVASTATIN 40 MG TABLET PO SCH (20:59)
[2017-10-27] MEDS: LORazepam 0.5 MG TABLET PO PRN (22:32)
[2017-10-28] MEDS: ACETAMINOPHEN 325 MG TABLET PO PRN ×3 (02:59→21:35)
[2017-10-28] MEDS: HYDROCODONE/APAP 7.5 MG/325 MG TABLET PO PRN ×4 (04:53→22:28)
[2017-10-28] MEDS: INSULIN ASPART 100unit/ml INJECTION SQ SCH ×3 (09:25→17:09)
[2017-10-28] MEDS: ASPIRIN 81 MG CHEWABLE TABLET PO SCH (09:26)
[2017-10-28] MEDS: LISINOPRIL 2.5 MG TABLET PO SCH (09:26)
[2017-10-28] MEDS: GABAPENTIN 100 MG CAPSULE PO SCH ×3 (09:27→21:36)
[2017-10-28] MEDS: Venlafaxine XR 37.5 MG CAPSULE (24hr) PO SCH (09:27)
[2017-10-28] MEDS: LORazepam 0.5 MG TABLET PO PRN (12:45)
--- NOTE | 2017-10-28 14:42 | Neuropsych Progress Note ---
[facility] Subjective Date: 10/29/17 - Sujective/Severity of Illness Medications: Acetaminophen (Tylenol) 325 - 650 mg PO Q5H PRN PRN Reason: Discomfort Last Admin: 10/28/17 02:59 Dose: 650 mg Hydrocodone Bitart/Acetaminophen ([place] 7.5/325) 1 tab PO Q6H PRN PRN Reason: Pain Last Admin: 10/28/17 11:30 Dose: 1 tab Aspirin (Asa) 81 mg PO DAILY [facility] Last Admin: 10/28/17 09:26 Dose: 81 mg Atorvastatin Calcium (Lipitor) 40 mg PO HS [facility] Last Admin: 10/27/17 20:59 Dose: 40 mg Gabapentin (Neurontin) 100 mg PO TID [facility] Last Admin: 10/28/17 09:27 Dose: 100 mg Glucose (Glutose 15) 37.5 gm PO PRN PRN PRN Reason: Hypoglycemia Haloperidol (Haldol) 0.5 mg PO Q6H PRN PRN Reason: Extreme agitation Haloperidol Lactate (Haldol) 0.5 mg IM Q6H PRN PRN Reason: Extreme agitation Insulin Aspart (Novolog) 10 unit SQ AC15 [facility] Last Admin: 10/28/17 11:41 Dose: 10 unit Insulin Aspart (Novolog) 1 - 5 unit SQ SS PRN; Protocol PRN Reason: Hyperglycemia Last Admin: 10/27/17 20:24 Dose: 3 unit Insulin Glargine (Lantus) 33 unit SQ HS [facility] Last Admin: 10/27/17 20:59 Dose: 33 unit Lisinopril (Prinivil) 2.5 mg PO DAILY [facility] Last Admin: 10/28/17 09:26 Dose: 2.5 mg Lorazepam (Ativan) 0.5 mg PO Q6H PRN PRN Reason: Extreme agitation Last Admin: 10/28/17 12:45 Dose: 0.5 mg Lorazepam (Ativan Inj) 0.5 mg IM Q6H PRN PRN Reason: Extreme agitation Trazodone HCl (Desyrel) 50 mg PO HS [facility] Last Admin: 10/27/17 20:59 Dose: 50 mg Venlafaxine HCl (Effexor Xr) 37.5 mg PO WB [facility] Last Admin: 10/28/17 09:27 Dose: 37.5 mg Subjective: Patient seen and chart reviewed. Case discussed with treatment team. On interview, patient is pleasant and engaging. She focuses on need with financial help to relieve stress but she feels that she is ready to go home otherwise. She reports tolerating medication well. She feels her mood has improved and denies any SI, HI or AVH. She attributes much of this to being able to have [place] again. Patient denies any adverse side effects related to psychotropic medications. Nursing staff report patient has not had any significant behavioral difficulties on the unit though was tearful at times. She reportedly requests PRN Ativan, [place] often. Patient has been adherent with medications. Patient slept ~8 hours overnight. VSS. Patient is eating well. Psychotropic PRNs required in the past 24 hours: Ativan 0.5mg PO x1 yesterday. Start Time: 08:00 Stop Time: 08:20 Mental Status Exam Vitals: Last Vital Signs Temp 97.6 F 10/28/17 08:00 Pulse 73 10/28/17 08:00 Resp 16 10/28/17 08:00 BP 129/72 10/28/17 08:00 Pulse Ox 100 10/28/17 08:00 Height: 1.73 m Weight: 83 kg - Mental Status Exam Muscle Strength/Tone: Normal Dressing: Casual Grooming: Good Attitude: Cooperative Motor Activity: Retardation Eye Contact: Fair Speech: Slowed Volume: Soft Rhythm: Appropriate Rhythm Orientation: Oriented X4 Mood: Neutral Affect: Tearful (at times though appears brighter others) Rate of Thoughts: Appropriate Rate Thought Organization: Organized Associations: Intact Abstract Reasoning: Intact, able to abstract Thought Content: Ruminations, Helplessness, Somatic Concerns Perception/Psychotic: Perception Normal Language: Naming Intact Fund of Knowledge: Appropriate Memory: Grossly Intact Suicidal Ideation: Denies Homicidal Ideation: Denies Insight: Limited Judgement: Limited Impulse Control: Other (Limited) - Laboratory Result Diagrams: 10/27/17 07:05 10/27/17 07:05 Laboratory Results - last 24 hr 10/27/17 10/27/17 10/27/17 10:12 17:02 20:17 Glucometer 198 195 285 10/27/17 10/28/17 21:27 10:00 Glucometer 241 177 Assessment and Plan (1) Major depressive disorder with current active episode Qualifiers: Major depression recurrence: recurrent Major depression episode severity: severe Psychotic features: without psychotic features Qualified Code(s): F33.2 - Major depressive disorder, recurrent severe without psychotic features Problem details: with anxious distress Other medical problems: Chronic pain, CAD, DMII, HTN Current visit: Yes Status: Acute May consider increasing Effexor soon, decreasing dose of [place] as she is using it frequently (QID) at this point. SW/CM working on lining up additional services to assist patient financially, which she says is biggest stressor. Also working to set patient up with pain mgmt. by time of discharge. Hospital Course Summary Disclaimer: The visit summary below is not to be considered part of the above Progress Note. Hospital Course: Plan - 10/26/17: Agree with admission to [facility] for further psychiatric evaluation and treatment. Hospitalist service consulted for medical management. Extensive review of prior medical records provided from [facility] completed. Labs obtained at [facility] - revealed hyponatremia (Na 134) and elevated cholesterol. Initiate Lipitor 40mg QHS for hyperlipidemia as well as ASA 81mg daily for heart protection. Blood pressure slightly elevated on admission. Monitor trends. Consider initiation of Lisinopril if persistent hypertension. Monitor blood sugars closely. Continue home novolog 10 units with meals and lantus 33 units at night. Given CKD and history of DM, avoid NSAIDS (ibuprofen). Tylenol PRN pain. History of prior opiate pain control which PCP recently discontinued. Concern for possible opiate withdrawal. Monitor closely for symptoms of withdrawal. Patient admitted taking friends methadone. Concern for medication abuse potential. Recommend avoid narcotics and benzos as able due to abuse potential. Will initiate gabapentin 100mg po TID for assistance with pain control. Will titrate up as tolerated. [place] Q6 PRN break through pain. Will check labs in AM including CBC, CMP, B12 to monitor blood counts, electrolytes and renal function. Upon discharge, patient's care will be returned to her PCP. 10/26/17 Psych: Prozac discontinued, start Effexor XR 37.5mg PO daily. 10/27/17 Psych: Continue current care and monitor response to Effexor, will discuss any additional manager social work in regards to financial concerns with CM/ SW. 10/28/17 Psych: May consider increasing Effexor soon, decreasing dose of [place] as she is using it frequently (QID) at this point. SW/CM working on lining up additional services to assist patient financially, which she says is biggest stressor. Also working to set patient up with pain mgmt. by time of discharge.
[2017-10-28] MEDS: INSULIN ASPART 100unit/ml INJECTION SQ PRN (14:52)
--- NOTE | 2017-10-28 15:16 | Progress Note ---
Progress Note: F/U: Chart Review, hyperglycemia. Chart thoroughly reviewed. Vital signs stable. Labs from 10/27/17 relatively unremarkable. Mild anemia (Hgb 11.6). Elevated SCr at 1.3 with GFR. Baseline SCr unknown though suspect close to baseline. Suspected CKD, stage III. Persistent hyperglycemia despite home Lantus 33 units QHS and Novolog 10 units before meals. Blood sugars >200 requiring up to 3 units sliding scale insulin regularly. Will increase Novolog to 12 units before meals and increase Lantus to 35 units QHS. Monitor closely for hypoglycemia.
[2017-10-28] MEDS: INSULIN GLARGINE 100unit/ml INJECTION SQ SCH ×2 (15:26→21:36)
[2017-10-28] MEDS: ATORVASTATIN 40 MG TABLET PO SCH (21:36)
[2017-10-28] MEDS: TRAZODONE 50 MG TABLET PO SCH (21:37)
[2017-10-29] MEDS: ACETAMINOPHEN 325 MG TABLET PO PRN ×3 (02:46→21:47)
[2017-10-29] MEDS: HYDROCODONE/APAP 7.5 MG/325 MG TABLET PO PRN ×3 (06:39→18:04)
[2017-10-29] MEDS: INSULIN ASPART 100unit/ml INJECTION SQ SCH ×3 (08:05→17:35)
[2017-10-29] MEDS: Venlafaxine XR 37.5 MG CAPSULE (24hr) PO SCH (08:36)
[2017-10-29] MEDS: ASPIRIN 81 MG CHEWABLE TABLET PO SCH (08:36)
[2017-10-29] MEDS: GABAPENTIN 100 MG CAPSULE PO SCH ×3 (08:37→21:01)
[2017-10-29] MEDS: LISINOPRIL 2.5 MG TABLET PO SCH (08:37)
--- NOTE | 2017-10-29 09:55 | Neuropsych Progress Note ---
[facility] Subjective Date: 10/29/17 - Sujective/Severity of Illness Medications: Acetaminophen (Tylenol) 325 - 650 mg PO Q5H PRN PRN Reason: Discomfort Last Admin: 10/29/17 08:39 Dose: 650 mg Hydrocodone Bitart/Acetaminophen ([place] 7.5/325) 1 tab PO Q6H PRN PRN Reason: Pain Last Admin: 10/29/17 06:39 Dose: 1 tab Aspirin (Asa) 81 mg PO DAILY [facility] Last Admin: 10/29/17 08:36 Dose: 81 mg Atorvastatin Calcium (Lipitor) 40 mg PO HS [facility] Last Admin: 10/28/17 21:36 Dose: 40 mg Gabapentin (Neurontin) 100 mg PO TID [facility] Last Admin: 10/29/17 08:37 Dose: 100 mg Glucose (Glutose 15) 37.5 gm PO PRN PRN PRN Reason: Hypoglycemia Haloperidol (Haldol) 0.5 mg PO Q6H PRN PRN Reason: Extreme agitation Haloperidol Lactate (Haldol) 0.5 mg IM Q6H PRN PRN Reason: Extreme agitation Insulin Aspart (Novolog) 1 - 5 unit SQ SS PRN; Protocol PRN Reason: Hyperglycemia Last Admin: 10/28/17 14:52 Dose: 1 unit Insulin Aspart (Novolog) 12 unit SQ AC15 [facility] Last Admin: 10/29/17 08:05 Dose: 12 unit Insulin Glargine (Lantus) 35 unit SQ HS [facility] Last Admin: 10/28/17 21:36 Dose: 35 unit Lisinopril (Prinivil) 2.5 mg PO DAILY [facility] Last Admin: 10/29/17 08:37 Dose: 2.5 mg Lorazepam (Ativan) 0.5 mg PO Q6H PRN PRN Reason: Extreme agitation Last Admin: 10/28/17 12:45 Dose: 0.5 mg Lorazepam (Ativan Inj) 0.5 mg IM Q6H PRN PRN Reason: Extreme agitation Trazodone HCl (Desyrel) 50 mg PO HS [facility] Last Admin: 10/28/17 21:37 Dose: 50 mg Venlafaxine HCl (Effexor Xr) 37.5 mg PO WB [facility] Last Admin: 10/29/17 08:36 Dose: 37.5 mg Subjective: Patient seen and chart reviewed. Case discussed with treatment team. On interview, patient is pleasant and engaging. She focuses on need with financial help to relieve stress and wanting more [place], but she feels that she is ready to go home otherwise. She reports tolerating medication well and feeling Effexor has been helpful thus far. She feels her mood has improved and denies any SI, HI or AVH. She attributes much of this to being able to have [place] again. Patient denies any adverse side effects related to psychotropic medications. Nursing staff report patient has not had any significant behavioral difficulties on the unit though was tearful at times. She reportedly requests PRN Ativan, [place] often. Patient has been adherent with medications. Patient slept 7.25 hours overnight. VSS. Patient is eating well. Psychotropic PRNs required in the past 24 hours: Ativan 0.5mg PO x1 yesterday. SW helped patient arrange payment plans with various [employer] yesterday. Patient would like to declare bankruptcy and find a biological inspector to assist her in this. Today we discussed avoidance and how this can be problematic, she is in agreement and willing to f/u for therapy after discharge. We are also attempting to find pain mgmt. clinic for her as her PCP reported they had not done so. Patient gives permission to discuss all of the above with her daughter. Start Time: 11:20 Stop Time: 11:40 Mental Status Exam Vitals: Last Vital Signs Temp 97.4 F 10/29/17 08:00 Pulse 71 10/29/17 08:00 Resp 20 10/29/17 08:00 BP 144/70 H 10/29/17 08:00 Pulse Ox 99 10/29/17 08:00 Height: 1.73 m Weight: 83 kg - Mental Status Exam Muscle Strength/Tone: Normal Dressing: Casual Grooming: Good Attitude: Cooperative Motor Activity: Retardation Eye Contact: Fair Speech: Slowed Volume: Soft Rhythm: Appropriate Rhythm Orientation: Oriented X4 Mood: Neutral Affect: Relaxed Rate of Thoughts: Appropriate Rate Thought Organization: Organized Associations: Intact Abstract Reasoning: Intact, able to abstract Thought Content: Ruminations (improving), Helplessness, Somatic Concerns Perception/Psychotic: Perception Normal Language: Naming Intact Fund of Knowledge: Appropriate Memory: Grossly Intact Suicidal Ideation: Denies Homicidal Ideation: Denies Insight: Limited Judgement: Limited Impulse Control: Fair - Laboratory Result Diagrams: 10/27/17 07:05 10/27/17 07:05 Laboratory Results - last 24 hr 10/27/17 10/28/17 10/28/17 07:05 10:00 14:34 Glucometer 177 190 Vitamin B12 374 10/28/17 20:18 Glucometer 81 Vitamin B12 Assessment and Plan (1) Major depressive disorder with current active episode Qualifiers: Major depression recurrence: recurrent Major depression episode severity: severe Psychotic features: without psychotic features Qualified Code(s): F33.2 - Major depressive disorder, recurrent severe without psychotic features Problem details: with anxious distress Other medical problems: Chronic pain, CAD, DMII, HTN Current visit: Yes Status: Acute Plan to increase Effexor to 75mg PO tomorrow. Attempting to help patient with social sciences professor to assist with financial stress, medications, etc. as she feels she cannot afford them. She is willing to f/u for therapy after discharge as well. Hospital Course Summary Disclaimer: The visit summary below is not to be considered part of the above Progress Note. Hospital Course: Plan - 10/26/17: Agree with admission to [facility] unit for further psychiatric evaluation and treatment. Hospitalist service consulted for medical management. Extensive review of prior medical records provided from [facility] completed. Labs obtained at [facility] - revealed hyponatremia (Na 134) and elevated cholesterol. Initiate Lipitor 40mg QHS for hyperlipidemia as well as ASA 81mg daily for heart protection. Blood pressure slightly elevated on admission. Monitor trends. Consider initiation of Lisinopril if persistent hypertension. Monitor blood sugars closely. Continue home novolog 10 units with meals and lantus 33 units at night. Given CKD and history of DM, avoid NSAIDS (ibuprofen). Tylenol PRN pain. History of prior opiate pain control which PCP recently discontinued. Concern for possible opiate withdrawal. Monitor closely for symptoms of withdrawal. Patient admitted taking friends methadone. Concern for medication abuse potential. Recommend avoid narcotics and benzos as able due to abuse potential. Will initiate gabapentin 100mg po TID for assistance with pain control. Will titrate up as tolerated. [place] Q6 PRN break through pain. Will check labs in AM including CBC, CMP, B12 to monitor blood counts, electrolytes and renal function. Upon discharge, patient's care will be returned to her PCP. 10/26/17 Psych: Prozac discontinued, start Effexor XR 37.5mg PO daily. 10/27/17 Psych: Continue current care and monitor response to Effexor, will discuss any additional social sciences professor in regards to financial concerns with CM/ SW. 10/28/17 Psych: May consider increasing Effexor soon, decreasing dose of [place] as she is using it frequently (QID) at this point. SW/CM working on lining up additional services to assist patient financially, which she says is biggest stressor. Also working to set patient up with pain mgmt. by time of discharge. 10/29/17 Psych: Plan to increase Effexor to 75mg PO tomorrow. Attempting to help patient with social sciences professor to assist with financial stress, medications, etc. as she feels she cannot afford them. She is willing to f/u for therapy after discharge as well. Patient is asking about increasing [place] and while I told her I would not do this, I will leave the dose as it is at this time.
[2017-10-29] MEDS: LORazepam 0.5 MG TABLET PO PRN (19:44)
[2017-10-29] MEDS ORDERED: INSULIN GLARGINE 100unit/ml INJECTION SQ ONE (20:54)
[2017-10-29] MEDS: ATORVASTATIN 40 MG TABLET PO SCH (21:01)
[2017-10-29] MEDS: TRAZODONE 50 MG TABLET PO SCH (21:02)
[2017-10-30] MEDS: HYDROCODONE/APAP 7.5 MG/325 MG TABLET PO PRN ×4 (00:31→18:16)
[2017-10-30] MEDS: INSULIN GLARGINE 100unit/ml INJECTION SQ SCH ×2 (02:41→20:33)
[2017-10-30] MEDS: INSULIN ASPART 100unit/ml INJECTION SQ SCH ×3 (07:51→17:13)
[2017-10-30] MEDS: Venlaflaxine XR 75 MG CAPSULE (24hr) PO SCH (08:04)
[2017-10-30] MEDS: GABAPENTIN 100 MG CAPSULE PO SCH ×4 (08:04→20:32)
[2017-10-30] MEDS: LISINOPRIL 2.5 MG TABLET PO SCH (08:04)
[2017-10-30] MEDS: ASPIRIN 81 MG CHEWABLE TABLET PO SCH (08:04)
--- NOTE | 2017-10-30 12:07 | Progress Note ---
- Date 10/30/17 Subjective: Patient is seen lying in her room. Reports she's having some back pain and fibromyalgia pain. She is currently resting on a heating pad. States she usually sleeps well last night did not sleep very well. Reports her pain pills since run out after about 5 hours and she gets one every 6 hours. Objective Vital signs: Temperature 98.2 F 10/30/17 08:00 Pulse Rate 65 10/30/17 08:00 Respiratory Rate 16 10/30/17 08:00 Blood Pressure 158/73 H 10/30/17 08:00 Pulse Oximetry 99 10/30/17 08:00 Height/Weight/BMI: Height 1.73 m Weight 83 kg Body Mass Index 27.8 - Constitutional Present: no acute distress, well nourished, well developed - Routine HEENT Exam Head: Present: normocephalic, atraumatic - Routine Respiratory Exam Present: CTA bilaterally. Absent: wheezes - Routine Cardiovascular Exam Present: RRR, no murmur - Routine Abdominal Exam Present: soft, non distended, non tender - Routine Extremities Exam Present: no edema, normal capillary refill - Routine Skin Exam Present: dry, warm - Routine Neurological Exam Present: alert - Routine Lymphatic Exam Lymphatic: Absent: adenopathy - Routine Psychiatric Exam Present: normal affect, cooperative Results - Labs CBC & Chem 7: 10/27/17 07:05 10/27/17 07:05 Assessment and Plan (1) Depression Current visit: Yes Status: Acute (2) Suicidal ideation Current visit: Yes Status: Acute Assessment and Plan: Assessment: Suicidal ideation. Depression with anxiety. Hypernatremia - prior to admission. Insulin dependent diabetes - A1c 5.7 on 10/25/17. Hypertension. Hyperlipidemia. Chronic kidney disease, stage III - GFR 46. Chronic pain. Fibromyalgia. Chronic headaches - migraine and tension. Gastroparesis. Chronic insomnia. Osteopenia. History of ESBL. Plan Vital signs, laboratory including blood sugars, nurses notes, psychiatric notes reviewed. Currently on Neurontin for her pain 100 mg 3 times a day and White every 6 hours PRN. Continue use of heating pad. Medically stable at this time. No concerns. - Physician Narrative Narrative: Date: 10/30/17 Time: 1202 Hospital Course Summary Disclaimer: The visit summary below is not to be considered part of the above Progress Note. Hospital Course: Plan - 10/26/17: Agree with admission to [facility] unit for further psychiatric evaluation and treatment. Hospitalist service consulted for medical management. Extensive review of prior medical records provided from [facility] completed. Labs obtained at [facility] - revealed hyponatremia (Na 134) and elevated cholesterol. Initiate Lipitor 40mg QHS for hyperlipidemia as well as ASA 81mg daily for heart protection. Blood pressure slightly elevated on admission. Monitor trends. Consider initiation of Lisinopril if persistent hypertension. Monitor blood sugars closely. Continue home novolog 10 units with meals and lantus 33 units at night. Given CKD and history of DM, avoid NSAIDS (ibuprofen). Tylenol PRN pain. History of prior opiate pain control which PCP recently discontinued. Concern for possible opiate withdrawal. Monitor closely for symptoms of withdrawal. Patient admitted taking friends methadone. Concern for medication abuse potential. Recommend avoid narcotics and benzos as able due to abuse potential. Will initiate gabapentin 100mg po TID for assistance with pain control. Will titrate up as tolerated. [place] Q6 PRN break through pain. Will check labs in AM including CBC, CMP, B12 to monitor blood counts, electrolytes and renal function. Upon discharge, patient's care will be returned to her PCP. 10/26/17 Psych: Prozac discontinued, start Effexor XR 37.5mg PO daily. 10/27/17 Psych: Continue current care and monitor response to Effexor, will discuss any additional social studies teacher in regards to financial concerns with CM/ SW. 10/28/17 Psych: May consider increasing Effexor soon, decreasing dose of [place] as she is using it frequently (QID) at this point. SW/CM working on lining up additional services to assist patient financially, which she says is biggest stressor. Also working to set patient up with pain mgmt. by time of discharge. 10/29/17 Psych: Plan to increase Effexor to 75mg PO tomorrow. Attempting to help patient with social studies teacher to assist with financial stress, medications, etc. as she feels she cannot afford them. She is willing to f/u for therapy after discharge as well. Patient is asking about increasing [place] and while I told her I would not do this, I will leave the dose as it is at this time. 10/30/17 hospitalist: Vital signs, laboratory including blood sugars, nurses notes, psychiatric notes reviewed. Currently on Neurontin for her pain 100 mg 3 times a day and White every 6 hours PRN. Continue use of heating pad. Medically stable at this time. No concerns. Addendum entered and electronically signed by INESSA Mccullough 10/30/17 15:33 : Dr. Vergara called to discuss pain meds post-dismissal as pt is likely being discharged tomorrow and her PCP will no longer Rx narcs. A pain management appt cannot be made until after they review her information. Dr. Burnett had told pt we could supply norco until she got in with pain management. At this time, will give pt 1 month of White, but will be given in 4 separate Rx's to be filled weekly. WIll not extend or replace the Rx's. She needs to f-u with PCP or establish w/ new PCP to adjust dosing of gabapentin, etc.
[2017-10-30] MEDS: ACETAMINOPHEN 325 MG TABLET PO PRN (13:50)
--- NOTE | 2017-10-30 14:35 | Neuropsych Progress Note ---
[facility] Subjective Date: 10/31/17 - Sujective/Severity of Illness Medications: Acetaminophen (Tylenol) 325 - 650 mg PO Q5H PRN PRN Reason: Discomfort Last Admin: 10/30/17 13:50 Dose: 650 mg Hydrocodone Bitart/Acetaminophen ([place] 7.5/325) 1 tab PO Q6H PRN PRN Reason: Pain Last Admin: 10/30/17 12:17 Dose: 1 tab Aspirin (Asa) 81 mg PO DAILY [facility] Last Admin: 10/30/17 08:04 Dose: 81 mg Atorvastatin Calcium (Lipitor) 40 mg PO HS [facility] Last Admin: 10/29/17 21:01 Dose: 40 mg Gabapentin (Neurontin) 100 mg PO TID [facility] Last Admin: 10/30/17 13:51 Dose: 100 mg Glucose (Glutose 15) 37.5 gm PO PRN PRN PRN Reason: Hypoglycemia Haloperidol (Haldol) 0.5 mg PO Q6H PRN PRN Reason: Extreme agitation Haloperidol Lactate (Haldol) 0.5 mg IM Q6H PRN PRN Reason: Extreme agitation Insulin Aspart (Novolog) 1 - 5 unit SQ SS PRN; Protocol PRN Reason: Hyperglycemia Last Admin: 10/28/17 14:52 Dose: 1 unit Insulin Aspart (Novolog) 12 unit SQ AC15 [facility] Last Admin: 10/30/17 11:54 Dose: 12 unit Insulin Glargine (Lantus) 35 unit SQ HS [facility] Last Admin: 10/30/17 02:41 Dose: Not Given Lisinopril (Prinivil) 2.5 mg PO DAILY [facility] Last Admin: 10/30/17 08:04 Dose: 2.5 mg Lorazepam (Ativan) 0.5 mg PO Q6H PRN PRN Reason: Extreme agitation Last Admin: 10/29/17 19:44 Dose: 0.5 mg Lorazepam (Ativan Inj) 0.5 mg IM Q6H PRN PRN Reason: Extreme agitation Trazodone HCl (Desyrel) 50 mg PO [facility] Last Admin: 10/29/17 21:02 Dose: 50 mg Venlafaxine HCl (Effexor Xr) 75 mg PO [facility] Last Admin: 10/30/17 08:04 Dose: 75 mg Subjective: Patient seen and chart reviewed. Case discussed with treatment team. On interview, patient is pleasant and engaging. She focuses on need with financial help to relieve stress and wanting more [place], but she feels that she is ready to go home otherwise. She reports tolerating medication well and feeling Effexor has been helpful thus far. She feels her mood has improved and denies any SI, HI or AVH. She attributes much of this to being able to have [place] again. Patient denies any adverse side effects related to psychotropic medications. Nursing staff report patient has not had any significant behavioral difficulties on the unit. She reportedly requests Pelzer often. Patient has been adherent with medications. Patient slept well overnight. VSS. Patient is eating well. Psychotropic PRNs required in the past 24 hours: None. Multiple referrals were sent to pain management clinics but we will not have a response by the time of discharge as they need to review information. Discussed with hospitalist who stated they can provide a total of 1 month Rx for Pelzer, supplied in 1-week Rxs. That should give patient time to hear back from pain management clinic. Also discussed all of the above with patient's daughter who lives in [place]. She would like to be updated of the plan and also all that patient has done with so she can attempt to assist from [facility]mi. Start Time: 13:20 Stop Time: 13:40 Mental Status Exam Vitals: Last Vital Signs Temp 98.2 F 10/30/17 08:00 Pulse 65 10/30/17 08:00 Resp 16 10/30/17 08:00 BP 158/73 H 10/30/17 08:00 Pulse Ox 99 10/30/17 08:00 Height: 1.73 m Weight: 83 kg - Mental Status Exam Muscle Strength/Tone: Normal Dressing: Casual Grooming: Good Attitude: Cooperative Motor Activity: Normal Eye Contact: Good Speech: Normal Volume: Normal Rhythm: Appropriate Rhythm Orientation: Oriented X4 Mood: Neutral Affect: Relaxed Rate of Thoughts: Appropriate Rate Thought Organization: Organized Associations: Intact Abstract Reasoning: Intact, able to abstract Thought Content: Helplessness, Somatic Concerns, Other (perseverates on Pelzer) Perception/Psychotic: Perception Normal Language: Naming Intact Fund of Knowledge: Appropriate Memory: Grossly Intact Suicidal Ideation: Denies Homicidal Ideation: Denies Insight: Fair Judgement: Fair Impulse Control: Fair - Laboratory Result Diagrams: 10/27/17 07:05 10/27/17 07:05 Laboratory Results - last 24 hr 10/29/17 10/30/17 15:11 10:12 Glucometer 176 127 Assessment and Plan (1) Major depressive disorder with current active episode Qualifiers: Major depression recurrence: recurrent Major depression episode severity: severe Psychotic features: without psychotic features Qualified Code(s): F33.2 - Major depressive disorder, recurrent severe without psychotic features Problem details: with anxious distress Other medical problems: Chronic pain, CAD, DMII, HTN Current visit: Yes Status: Acute Patient feels she is ready for discharge. She continues to perseverate on Pelzer. Discussed with her that she is not using more benign PRNs such as Tylenol and suggested she do that first. Also agreed to increase gabapentin to 200mg PO TID and discussed that it could be further increased later. Multiple referrals sent to pain mgmt. clinics in [place]; awaiting response. Plan to discharge back to home tomorrow with f/u through [facility]. Hospital Course Summary Disclaimer: The visit summary below is not to be considered part of the above Progress Note. Hospital Course: Plan - 10/26/17: Agree with admission to [facility] for further psychiatric evaluation and treatment. Hospitalist service consulted for medical management. Extensive review of prior medical records provided from [facility] completed. Labs obtained at [facility] - revealed hyponatremia (Na 134) and elevated cholesterol. Initiate Lipitor 40mg QHS for hyperlipidemia as well as ASA 81mg daily for heart protection. Blood pressure slightly elevated on admission. Monitor trends. Consider initiation of Lisinopril if persistent hypertension. Monitor blood sugars closely. Continue home novolog 10 units with meals and lantus 33 units at night. Given CKD and history of DM, avoid NSAIDS (ibuprofen). Tylenol PRN pain. History of prior opiate pain control which PCP recently discontinued. Concern for possible opiate withdrawal. Monitor closely for symptoms of withdrawal. Patient admitted taking friends methadone. Concern for medication abuse potential. Recommend avoid narcotics and benzos as able due to abuse potential. Will initiate gabapentin 100mg po TID for assistance with pain control. Will titrate up as tolerated. [place] Q6 PRN break through pain. Will check labs in AM including CBC, CMP, B12 to monitor blood counts, electrolytes and renal function. Upon discharge, patient's care will be returned to her PCP. 10/26/17 Psych: Prozac discontinued, start Effexor XR 37.5mg PO daily. 10/27/17 Psych: Continue current care and monitor response to Effexor, will discuss any additional psychotherapist social worker in regards to financial concerns with CM/ SW. 10/28/17 Psych: May consider increasing Effexor soon, decreasing dose of [place] as she is using it frequently (QID) at this point. SW/CM working on lining up additional services to assist patient financially, which she says is biggest stressor. Also working to set patient up with pain mgmt. by time of discharge. 10/29/17 Psych: Plan to increase Effexor to 75mg PO tomorrow. Attempting to help patient with psychotherapist social worker to assist with financial stress, medications, etc. as she feels she cannot afford them. She is willing to f/u for therapy after discharge as well. Patient is asking about increasing [place] and while I told her I would not do this, I will leave the dose as it is at this time. 10/30/17 hospitalist: Vital signs, laboratory including blood sugars, nurses notes, psychiatric notes reviewed. Currently on Neurontin for her pain 100 mg 3 times a day and [place] every 6 hours PRN. Continue use of heating pad. Medically stable at this time. No concerns. 10/31/17 Psych: Patient feels she is ready for discharge. She continues to perseverate on Pelzer. Discussed with her that she is not using more benign PRNs such as Tylenol and suggested she do that first. Also agreed to increase gabapentin to 200mg PO TID and discussed that it could be further increased later. Multiple referrals sent to pain mgmt. clinics in [place]; awaiting response. Plan to discharge back to home tomorrow with f/u through [facility].
[2017-10-30 16:26] VITALS: O2SAT 97
[2017-10-30] MEDS: INSULIN ASPART 100unit/ml INJECTION SQ PRN (17:15)
[2017-10-30] MEDS: ATORVASTATIN 40 MG TABLET PO SCH (20:33)
[2017-10-30] MEDS: TRAZODONE 50 MG TABLET PO SCH (20:33)
[2017-10-31] MEDS: HYDROCODONE/APAP 7.5 MG/325 MG TABLET PO PRN ×2 (02:49→09:35)
[2017-10-31] MEDS: INSULIN ASPART 100unit/ml INJECTION SQ SCH ×2 (09:33→11:40)
[2017-10-31] MEDS: Venlaflaxine XR 75 MG CAPSULE (24hr) PO SCH (09:34)
[2017-10-31] MEDS: ASPIRIN 81 MG CHEWABLE TABLET PO SCH (09:34)
[2017-10-31] MEDS: GABAPENTIN 100 MG CAPSULE PO SCH (09:34)
[2017-10-31] MEDS: LISINOPRIL 2.5 MG TABLET PO SCH (09:35)
[2017-10-31 10:58] VITALS: BP 141/78; PULSE 73; RESP 18; TEMP 97.8
[2017-10-31] MEDS: ACETAMINOPHEN 325 MG TABLET PO PRN (11:29)
[2017-10-31] MEDS: INSULIN ASPART 100unit/ml INJECTION SQ PRN (11:38)
== END 2017-10-31 13:00 | disposition home health service (06) | DRG 885 ==
LOC: GEN 20:29
PROVIDERS: ADMIT Psychiatry & Neurology Psychiatry; ATTEND Psychiatry & Neurology Psychiatry

== ENCOUNTER 2018-02-16 13:58 | Inpatient (IN) ==
--- OUTSIDE RECORDS SUMMARY | 2018-02-16 15:08 | External Medical Summary | Referral Summary ---
:1945 Author Organization [address] [facility] Address [address] [place] [address] Care Team Providers Name Role Phone Ze Canas Eloy Primary Care Physician Encounter VC Date(s): 02/06/17 - 02/06/[address] [facility] [address] [place] [address] [place] Discharge Disposition: 01-Home or Self Care Attending Physician: Marce Hicks MD Admitting Physician: Guzman Vega MD Vital Signs Most recent to oldest [Reference Range]: 1 Temperature Oral [35.8-37.3 degC] 36.7 degC (02/06/17 3:47 PM) Peripheral Pulse Rate [60-100 bpm] 90 bpm (02/06/17 3:47 PM) Respiratory Rate [14-20 br/min] 16 br/min (02/06/17 3:47 PM) Blood Pressure [90-140/60-90 mmHg] 124/80 mmHg (02/06/17 3:47 PM) Problem List Condition Effective Dates Status Health Status Informant Acute pain(Confirmed) < 01/29/14 Resolved Antimicrobial resistant Active organism(Confirmed)1 Anxiety(Confirmed) Active At risk for activity < 11/01/14 Resolved intolerance(Confirmed)2 At risk for falls(Confirmed)3 < 07/15/15 Resolved At risk for infection(Confirmed)4 < 11/01/14 Resolved At risk for injury(Confirmed)5 < 11/01/14 Resolved At risk for unstable blood glucose < 01/08/15 Resolved level(Confirmed)6 At risk of pressure sore(Confirmed) < 01/08/15 Resolved Bowel dysfunction(Confirmed)7 < 09/12/15 Resolved Chronic back pain(Confirmed) Active Back pain, chronic(Confirmed) Active Chronic tension headaches(Confirmed) Active Coronary disease(Confirmed) < 01/08/15 Resolved Diabetes(Confirmed) < 01/27/14 Resolved patient Gastroparesis due to DM(Confirmed) Active ESBL(Confirmed)8 Active Fluid imbalance(Confirmed)9 < 09/12/15 Resolved H/O osteopenia(Confirmed) Active Heart disease(Confirmed) Active patient Hypercholesteremia(Confirmed) Active patient Hypertension(Confirmed) Active patient Acute kidney injury(Confirmed) Active Insomnia(Confirmed) Active Knowledge deficit(Confirmed)10 < 01/11/15 Resolved LBP (low back pain)(Confirmed) Active Lumbar strain(Confirmed) Active Chronic migraine(Confirmed) Active Depression with anxiety(Confirmed) Active Chronic insomnia(Confirmed) Active Depression(Confirmed) Active Tissue perfusion < 01/29/14 Resolved alteration(Confirmed)11 Diabetes mellitus, insulin dependent Active (IDDM), uncontrolled(Confirmed) Diabetes mellitus type 2, Resolved uncontrolled, with complications(Confirmed) 1Urine from NOT FOUND collected 04/13/16 12:36:00 [id number] added automatically by system based on initiation of At Risk for Activity Intolerance Plan of Wado2Usmb problem was added by Discern Expert.4Problem added automatically by system based on initiation of At Risk for Infection in Nutrition Planof Ilqb7Pznodby added automatically by system based on initiation of Risk for Injury Plan of Hsky6Cfrjuve added automatically by system based on initiation of At Risk for Unstable Blood Glucose Planof Yisg4Vwghtbs added automatically by system based on initiation of Bowel Dysfunction Plan of Mmdr1Tiuft from NOT FOUND collected 09/07/15 17:48:00 ZTB1Lfsuzku added automatically by system based on initiation of Fluid Volume Imbalance Plan of Wgwe03Epnjjel added automatically by system based on initiation of Knowledge Deficit Plan of Ktkv79Jukbnsc added automatically by system based on initiation [...] other reason (Rx) Start Date: 06/14/14 Status: OrderedBactrim DS 800 mg-160 mg oral tablet 1 tabs, Oral, BID, for infection, X 5 days, # 10 tabs, 0 Refill(s) Start Date: 02/06/17 Stop Date: 02/11/17 Status: OrderedFinished Med-Cephalexin 500mg Finished Med-Cephalexin 500mg, 1 caps, Oral, BID, x7 days start day 6-9 stop day 6-16, 0 Refill(s) Start Date: 02/06/17 Status: OrderedLantus Solostar Pen 100 units/mL subcutaneous solution 30 units, SubCutaneous, Bedtime (once a day), 0 Refill(s) Start Date: 09/13/16 Status: Orderedlisinopril 10 mg oral tablet 10 mg 1 tabs, Oral, Daily, 0 Refill(s) Start Date: 01/03/16 Status: OrderedNovoLOG 100 units/mL subcutaneous solution 10 units, SubCutaneous, TIDAC, 0 Refill(s) Start Date: 02/06/17 Status: Orderedsertraline 100 mg oral tablet 200 mg 2 tabs, Oral, Daily, # 60 tabs, 3 Refill(s), called to pharmacy (Rx) Start Date: 10/02/16 Status: Ordered Results No data available for this section Immunizations Given and Recorded Vaccine Date Status Refusal Reason influenza virus vaccine, inactivated 05/09/16 Given influenza virus vaccine, inactivated1 05/24/15 Given influenza virus vaccine, inactivated2 05/24/15 Given influenza virus vaccine, inactivated 06/14/14 Given pneumococcal 23-polyvalent vaccine3 01/28/14 Given 1Early/Late Reason: Other : DID NOT CROSS [id number] Comment: did not cross [id number]/Late Reason: Other : STATUS Procedures Procedure Date Related Diagnosis Body Site Open Reduction Internal Fixation Ankle (Left)1 11/01/14 Adrenalectomy Appendectomy Cholecystectomy Hysterectomy Provision of stents or bite blocks Total knee arthroplasty 1auto-populated from documented surgical case Social History Social History Type Response Smoking Status Never smoker Assessment and Plan No data available for this section
--- OUTSIDE RECORDS SUMMARY | 2018-02-16 15:08 | External Medical Summary | Referral Summary ---
:1945 [address] [facility] Address [address] [place] [address] Care Team Providers Name Role Phone Ze Canas Primary Care Physician Encounter VC Date(s): 02/06/17 - 02/06/[address] [facility] [address] [place], [place] [address] Discharge Diagnosis: Anxiety Discharge Diagnosis: Acute UTI Discharge Diagnosis: Depression Discharge Disposition: 01-Home or Self Care Attending Physician: Cooper Alegre DO Admitting Physician: Cooper Alegre DO Vital Signs Most recent to oldest [Reference Range]: 1 Temperature Oral [35.8-37.3 degC] 36.8 degC (02/06/17 5:07 PM) Peripheral Pulse Rate [60-100 bpm] 89 bpm (02/06/17 9:09 PM) Heart Rate Monitored [60-100 bpm] 76 bpm (02/06/17 9:08 PM) Respiratory Rate [14-20 br/min] 14 br/min (02/06/17 9:09 PM) Blood Pressure [90-140/60-90 mmHg] 132/72 mmHg (02/06/17 9:09 PM) Mean Arterial Pressure, Cuff 98 mmHg (02/06/17 9:08 PM) SpO2 98 % (02/06/17 9:09 PM) Problem List Condition Effective Dates Status [...] 1Urine from NOT FOUND collected 04/13/16 12:36:00 [id number] added automatically by system based on initiation of At Risk for Activity Intolerance Plan of Xrrr1Anaa problem was added by Discern Expert.4Problem added automatically by system based on initiation of At Risk for Infection in Nutrition Planof Fkko9Zdsbncw added automatically by system based on initiation of Risk for Injury Plan of Mzlk1Mykiztw added automatically by system based on initiation of At Risk for Unstable Blood Glucose Planof Bnzu7Bmjwivo added automatically by system based on initiation of Bowel Dysfunction Plan of Fqup9Tjcaw from NOT FOUND collected 09/07/15 17:48:00 SEV3Phuicck added automatically by system based on initiation of Fluid Volume Imbalance Plan of Womv10Otuhtvh added automatically by system based on initiation of Knowledge Deficit Plan of Yocn72Qnurtnj added automatically by system based on initiation [...] (Rx) Start Date: 10/02/16 Status: Ordered Results Hematology Most recent to oldest [Reference Range]: 1 2 WBC [4.8-10.8 10*3/uL] 9.4 10*3/uL (02/06/17 8:28 PM) RBC [4.00-5.20] 4.69 (02/06/17 8:28 PM) Hgb [12.0-16.0 gm/dL] 12.6 gm/dL (02/06/17 8:28 PM) Hct [37.0-47.0 %] 38.3 % (02/06/17 8:28 PM) MCV [82.0-99.0 fL] 81.7 fL *LOW* (02/06/17 8:28 PM) MCH [27.0-32.0 pg] 26.9 pg *LOW* (02/06/17 8:28 PM) MCHC [32.0-36.0 gm/dL] 32.9 gm/dL (02/06/17 8:28 PM) RDW [11.5-14.5 %] 14.4 % (02/06/17 8:28 PM) Platelet [150-400 10*3/uL] 173 10*3/uL (02/06/17 8:28 PM) MPV [9.4-12.4 fL] 10.0 fL (02/06/17 8:28 PM) Immature Granulocytes [0.0-1.0 %] 0.2 % (02/06/17 8:28 PM) Neutrophils [51-75 %] 69 % (02/06/17 8:28 PM) Lymphocytes [20-46 %] 25 % (02/06/17 8:28 PM) Monocytes [4-11 %] 5 % (02/06/17 8:28 PM) Eosinophils [0-4 %] 1 % (02/06/17 8:28 PM) Basophils [0-2 %] 0 % (02/06/17 8:28 PM) Neutro Absolute [1.90-7.00] 6.47 (02/06/17 8:28 PM) Lymph Absolute [0.80-3.30] 2.35 (02/06/17 8:28 PM) Jack Absolute [0.30-1.00] 0.42 (02/06/17 8:28 PM) Eos Absolute [0.00-0.50] 0.12 (02/06/17 8:28 PM) Baso Absolute [0.00-0.20] 0.02 (02/06/17 8:28 PM) Nucleated RBC Automated [0 /100 WBC] 0.0 /100 WBC (02/06/17 8:28 PM) Chemistry Most recent to oldest [Reference Range]: 1 2 Sodium Lvl [136-144 mEq/L] 134 mEq/L *LOW* (02/06/17 8:30 PM) Potassium Lvl [3.6-5.1 mEq/L] 4.9 mEq/L (02/06/17 8:30 PM) Chloride [99-109 mEq/L] 108 mEq/L (02/06/17 8:30 PM) CO2 [22-32 mEq/L] 19 mEq/L *LOW* (02/06/17 8:30 PM) AGAP [3-20 mEq/L] 7 mEq/L (02/06/17 8:30 PM) BUN [4-20 mg/dL] 20 mg/dL (02/06/17 8:30 PM) Glucose Lvl [70-100 mg/dL] 180 mg/dL *HI* (02/06/17 8:30 PM) Creatinine Lvl [0.44-1.03 mg/dL] 1.24 mg/dL *HI* (02/06/17 8:30 PM) eGFR [>60 mL/min] 43 mL/min 1 *ABN* (02/06/17 8:30 PM) Calcium Lvl [8.6-10.0 mg/dL] 9.2 mg/dL (02/06/17 8:30 PM) 1Result Comment: Multiply eGFR results by 1.21 for race.Urinalysis Most recent to oldest [Reference Range]: 1 2 UA Color Yellow (02/06/17 8:31 PM) UA Appear Cloudy *ABN* (02/06/17 8:31 PM) UA pH [5.0-8.0] 5.0 (02/06/17 8:31 PM) UA Leuk Est [Negative] Pos 3+ *ABN* (02/06/17 8:31 PM) UA Nitrite [Negative] Negative (02/06/17 8:31 PM) UA Protein [Negative] Negative (02/06/17 8:31 PM) UA Glucose [Negative] Negative (02/06/17 8:31 PM) UA Ketones [Negative] Negative (02/06/17 8:31 PM) UA Urobilinogen [<1.0] Negative (02/06/17 8:31 PM) UA Bili [Negative] Negative (02/06/17 8:31 PM) UA Blood [Negative] Negative (02/06/17 8:31 PM) UA Spec Grav [1.003-1.030] 1.015 (02/06/17 8:31 PM) Type Clean Catch Venous (02/06/17 8:31 PM) (02/06/17 8:31 PM) UA WBC [0-4 /HPF] >50 /HPF *ABN* (02/06/17 8:31 PM) UA RBC [0-2] 5-10 *ABN* (02/06/17 8:31 PM) Epithelial Cells 10-20 (02/06/17 8:31 PM) UA Bacteria Occasional *ABN* (02/06/17 8:31 PM) UA Mucous Present (02/06/17 8:31 PM) Immunizations Given and Recorded Vaccine Date Status Refusal Reason influenza virus vaccine, inactivated 05/09/16 Given influenza virus vaccine, inactivated1 05/24/15 Given influenza virus vaccine, inactivated2 05/24/15 Given influenza virus vaccine, inactivated 06/14/14 Given pneumococcal 23-polyvalent vaccine3 01/28/14 Given 1Early/Late Reason: Other : DID NOT CROSS [id number] Comment: did not cross [id number]/Late Reason: Other : STATUS Procedures Procedure Date Related Diagnosis Body Site Open Reduction Internal Fixation Ankle (Left)1 11/01/14 Adrenalectomy Appendectomy Cholecystectomy Hysterectomy Provision of stents or bite blocks Total knee arthroplasty 1auto-populated from documented surgical case Social History Social History Type Response Smoking Status Never smoker Assessment and Plan No data available for this section
--- OUTSIDE RECORDS SUMMARY | 2018-02-16 15:08 | External Medical Summary | Referral Summary ---
:1945 Author Organization [facility] Address [address] [place] [address] Care Team Providers Name Role Phone Josh barnett Primary Care Physician Encounter VC Date(s): 12/13/16 - 12/13/16 [facility] [address] [place] [address] [place] Discharge Disposition: 01-Home or Self Care Attending Physician: Rosaura Chong MD Admitting Physician: Ze Guevara MD Vital Signs Most recent to oldest [Reference Range]: 1 Temperature Oral [35.8-37.3 degC] 36.8 degC (12/13/16 1:37 PM) Peripheral Pulse Rate [60-100 bpm] 80 bpm (12/13/16 1:37 PM) Respiratory Rate [14-20 br/min] 12 br/min *LOW* (12/13/16 1:37 PM) Blood Pressure [90-140/60-90 mmHg] 122/80 mmHg (12/13/16 1:37 PM) Problem List Condition Effective Dates Status [...] 1Urine from NOT FOUND collected 04/13/16 12:36:00 COD7Bloubje added automatically by system based on initiation of At Risk for Activity Intolerance Plan of Vbxf6Fgcp problem was added by Discern Expert.4Problem added automatically by system based on initiation of At Risk for Infection in Nutrition Planof Guli2Hutlpgx added automatically by system based on initiation of Risk for Injury Plan of Drik8Konocry added automatically by system based on initiation of At Risk for Unstable Blood Glucose Planof Qsmz4Lrbwsdv added automatically by system based on initiation of Bowel Dysfunction Plan of Qclr8Fztzm from NOT FOUND collected 09/07/15 17:48:00 ERT3Fesevrd added automatically by system based on initiation of Fluid Volume Imbalance Plan of Zluj23Lcdlcep added automatically by system based on initiation of Knowledge Deficit Plan of Kfzw83Czeqtcs added automatically by system based on initiation [...] oral tablet 10 mg 1 tabs, Oral, Bedtime (once a day), as needed for spasm, X 14 days, # 14 tabs, 0 Refill(s) Start Date: 12/12/16 Stop Date: 12/26/16 Status: OrderedGlucometer (DME) DME Item Glucometer (1) Lancets ( 1 box) Test Strips ( 1 box) 6 refills each on Test Strips , Lancets INSURANCE WILL COVER ON EACH Test FBS, 2 Hours after each Meal Daily Diag:E11.65 Length: 99months HgbA1C: 9.1 11/01/2015, See Instructions,... Start Date: 11/22/15 Status: OrderedhydrOXYzine hydrochloride 50 mg oral tablet 50 mg 1 tabs, Oral, QID, as needed for anxiety, X 30 days, # 90 tabs, 0 Refill(s ), Pharmacy: [id number], 1 tabs Oral QID,x30 days,PRN:as needed for anxiety Start Date: 12/13/16 Stop Date: 01/12/17 Status: OrderedKeflex 500 mg oral capsule 500 mg 1 caps, Oral, q8hr, # 15 caps, 0 Refill(s), Pharmacy: [id number] Start Date: 10/23/16 Status: OrderedLantus [...] BEFORE MEAL(S) , # 10 unknown unit,eRx: [id number] Start Date: 07/30/16 Status: OrderedPercocet 7.5/325 oral tablet 1 tabs, Oral, q6hr, as needed for pain, X 2 days, # 10 tabs, 0 Refill(s) Start Date: 12/12/16 Stop Date: 12/14/16 Status: Orderedsertraline 100 mg oral tablet 200 mg 2 tabs, Oral, Daily, # 60 tabs, 3 Refill(s), called to pharmacy (Rx) Start Date: 10/02/16 Status: OrderedZofran ODT 4 mg oral tablet, disintegrating 4 mg 1 tabs, Oral, q4hr, Nausea or Vomiting | as needed for nausea/vomiting, # 9 tabs, 0 Refill(s) Start Date: 10/26/16 Stop Date: 10/29/16 Status: Ordered Results No data available for this section Immunizations Given and Recorded Vaccine Date Status Refusal Reason influenza virus vaccine, inactivated 05/09/16 Given influenza virus vaccine, inactivated1 05/24/15 Given influenza virus vaccine, inactivated2 05/24/15 Given influenza virus vaccine, inactivated 06/14/14 Given pneumococcal 23-polyvalent vaccine3 01/28/14 Given 1Early/Late Reason: Other : DID NOT CROSS [id number] Comment: did not cross [id number]/Late Reason: Other : STATUS Procedures Procedure Date Related Diagnosis Body Site Open Reduction Internal Fixation Ankle (Left)1 11/01/14 Adrenalectomy Appendectomy Cholecystectomy Hysterectomy Provision of stents or bite blocks Total knee arthroplasty 1auto-populated from documented surgical case Social History Social History Type Response Smoking Status Never smoker Assessment and Plan No data available for this section"
--- OUTSIDE RECORDS SUMMARY | 2018-02-16 15:09 | External Medical Summary | Referral Summary ---
:1945 [address] [facility] Address [address] [place] [address] Care Team Providers Name Role Phone RobertJs alberto Karel Primary Care Physician Encounter VC Date(s): 09/07/17 - 09/07/[address] [facility] [address] [place], [place] [address] Discharge Disposition: 07-Left Without Being Seen Problem List Condition Effective Dates Status Health [...] Resolved patient Gastroparesis due to DM(Confirmed) Active ESBL(Confirmed)8, 9 Active Fluid imbalance(Confirmed)10 < 09/12/15 Resolved H/O osteopenia(Confirmed) Active Heart disease(Confirmed) Active patient Hypercholesteremia(Confirmed) Active patient Hypertension(Confirmed) Active patient Acute kidney injury(Confirmed) Active Insomnia(Confirmed) Active Knowledge deficit(Confirmed)11, 12 Active LBP (low back pain)(Confirmed) Active Lumbar strain(Confirmed) Active Chronic migraine(Confirmed) Active Depression with anxiety(Confirmed) Active Chronic insomnia(Confirmed) Active Depression(Confirmed) Active Tissue perfusion < 01/29/14 Resolved alteration(Confirmed)13 Diabetes mellitus, insulin dependent Active (IDDM), uncontrolled(Confirmed) Diabetes mellitus type 2, Resolved uncontrolled, with complications(Confirmed) 1Urine from NOT FOUND collected 04/13/16 12:36:00 DBL2Dhuuryv added automatically by system based on initiation of At Risk for Activity Intolerance Plan of Ciba9Grkk problem was added by Discern Expert.4Problem added automatically by system based on initiation of At Risk for Infection in Nutrition Planof Ilmk6Wiuwfzp added automatically by system based on initiation of Risk for Injury Plan of Odif9Dydtjtc added automatically by system based on initiation of At Risk for Unstable Blood Glucose Planof Yvtn0Htbniym added automatically by system based on initiation of Bowel Dysfunction Plan of Feas1Lytxj from NOT FOUND collected 02/06/17 20:31:00 PAY5Rphjw from NOT FOUND collected 09/07/15 17:48:00 [id number] added automatically by system based on initiation of Fluid Volume Imbalance Plan of Imcf63Szozykt updated automatically by system based on initiation of Knowledge Deficit Plan of Yvuu53Iocduuk added automatically by system based on initiation of Knowledge Deficit Plan of Jqis28Ptccudc added automatically by system based on initiation of Tissue Perfusion Cerebral Plan of Care Allergies, Adverse Reactions, Alerts Substance Reaction Severity Status penicillin Hives Medium Active Macrodantin Convulsion Severe Active Medications gabapentin 300 mg oral capsule 300 mg 1 caps, Oral, TID, 0 Refill(s) Start Date: 05/20/17 Status: OrderedLevemir 100 units/mL subcutaneous solution 30 units, SubCutaneous, Bedtime (once a day), 0 Refill(s) Start Date: 05/20/17 Status: OrderedNovoLOG 100 units/mL subcutaneous solution 10 units, SubCutaneous, TIDAC, 0 Refill(s) Start Date: 05/20/17 Status: Orderedsertraline 100 mg oral tablet 200 mg 2 tabs, Oral, Daily, 0 Refill(s) Start Date: 05/20/17 Status: Ordered Results Chemistry Most recent to oldest [Reference Range]: 1 Blood Glucose, Capillary [70-100 mg/dL] 340 mg/dL *HI* (09/07/17 2:12 PM) Immunizations Given and Recorded Vaccine Date Status Refusal Reason influenza virus vaccine, inactivated 05/09/16 Given influenza virus vaccine, inactivated1 05/24/15 Given influenza virus vaccine, inactivated2 05/24/15 Given influenza virus vaccine, inactivated 06/14/14 Given pneumococcal 23-polyvalent vaccine3 01/28/14 Given 1Early/Late Reason: Other : DID NOT CROSS [id number] Comment: did not cross [id number]/Late Reason: Other : STATUS Procedures Procedure Date Related Diagnosis Body Site Open Reduction Internal Fixation Ankle (Left)1 11/01/14 Adrenalectomy Appendectomy Cholecystectomy Hysterectomy Provision of stents or bite blocks Total knee arthroplasty 1auto-populated from documented surgical case Social History Social History Type Response Smoking Status Never smoker entered on: 01/27/14
--- OUTSIDE RECORDS SUMMARY | 2018-02-16 15:09 | External Medical Summary | Referral Summary ---
:1945 Author Organization [facility] Address [address] [place] [address] Care Team Providers Name Role Phone No PCP, States Primary Care Physician Encounter VC Date(s): 05/19/17 - 05/20/[address] [id number] Discharge Diagnosis: Opioid intoxication Discharge Disposition: -Home with Home Health Care Attending Physician: Rosaura Hooper MD Admitting Physician: Ortega Albarado MD Vital Signs Most recent to oldest [Reference Range]: 1 Temperature Oral [35.8-37.3 degC] 37.0 degC (05/20/17 12:13 PM) Peripheral Pulse Rate [60-100 bpm] 81 bpm (05/20/17 8:16 AM) Heart Rate Monitored [60-100 bpm] 100 bpm (05/19/17 11:06 PM) Respiratory Rate [14-20 br/min] 18 br/min (05/20/17 8:16 AM) Blood Pressure [90-140/60-90 mmHg] 95/53 mmHg (05/20/17 8:16 AM) Mean Arterial Pressure, Cuff 79 mmHg (05/19/17 10:30 PM) SpO2 97 % (05/20/17 12:13 PM) Remote Telemetry Initiated 1 (05/19/17 11:06 PM) 1Result Comment: Pack 1412 Problem List Condition Effective Dates Status Health [...] 1Urine from NOT FOUND collected 04/13/16 12:36:00 [id number] added automatically by system based on initiation of At Risk for Activity Intolerance Plan of Gtdg1Zpyy problem was added by Discern Expert.4Problem added automatically by system based on initiation of At Risk for Infection in Nutrition Planof Nltj0Azvmmyo added automatically by system based on initiation of Risk for Injury Plan of Auba8Yptqosg added automatically by system based on initiation of At Risk for Unstable Blood Glucose Planof Gbdj1Tjhangs added automatically by system based on initiation of Bowel Dysfunction Plan of Iyfr0Htnkm from NOT FOUND collected 02/06/17 20:31:00 ASQ3Dwull from NOT FOUND collected 09/07/15 17:48:00 [id number] added automatically by system based on initiation of Fluid Volume Imbalance Plan of Lnft86Lvnfcbr updated automatically by system based on initiation of Knowledge Deficit Plan of Gjrr78Fnubbsg added automatically by system based on initiation of Knowledge Deficit Plan of Izmt46Hwrshiu added automatically by system based on initiation of Tissue Perfusion Cerebral Plan of Care Allergies, Adverse Reactions, Alerts Substance Reaction Severity Status penicillin Hives Medium Active Macrodantin Convulsion Severe Active Medications gabapentin 300 mg oral capsule 300 mg 1 caps, Oral, TID, 0 Refill(s) Start Date: 05/20/17 Status: OrderedHYDROcodone-acetaminophen 5 mg-325 mg oral tablet 1 tabs, Oral, q6hr, as needed for pain, # 12 tabs, 0 Refill(s) Start Date: 05/20/17 Stop Date: 05/27/17 Status: OrderedLevemir 100 units/mL subcutaneous solution 30 units, SubCutaneous, Bedtime (once a day), 0 Refill(s) Start Date: 05/20/17 Status: OrderedNovoLOG 100 units/mL subcutaneous solution 10 units, SubCutaneous, TIDAC, 0 Refill(s) Start Date: 05/20/17 Status: Orderedsertraline 100 mg oral tablet 200 mg 2 tabs, Oral, Daily, 0 Refill(s) Start Date: 05/20/17 Status: Ordered Results Blood Gases Most recent to oldest [Reference Range]: 1 pH [7.35-7.45] 7.27 *LOW* (05/20/17 12:23 AM) pCO2 Art [35-45 mmHg] 51 mmHg *HI* (05/20/17 12:23 AM) Bicarbonate [22-26 mEq/L] 23 mEq/L (05/20/17 12:23 AM) Base Excess Art [0-2] -4 *LOW* (05/20/17 12:23 AM) O2 Sat Art [90.0-97.0 %] 92.5 % (05/20/17 12:23 AM) pO2 Art [80-100 mmHg] 76 mmHg *LOW* (05/20/17 12:23 AM) LPM Art 2.0 L/min (05/20/17 12:23 AM) O2 Panel 2L NC (05/20/17 12:23 AM) Spec Site A. radialis r. (05/20/17 12:23 AM) Hematology Most recent to oldest [Reference Range]: 1 WBC [4.8-10.8 10*3/uL] 9.0 10*3/uL (05/19/17 7:23 PM) RBC [4.00-5.20] 4.35 (05/19/17 7:23 PM) Hgb [12.0-16.0 gm/dL] 11.7 gm/dL *LOW* (05/19/17 7:23 PM) Hct [37.0-47.0 %] 37.4 % (05/19/17 7:23 PM) MCV [82.0-99.0 fL] 86.0 fL (05/19/17 7:23 PM) MCH [27.0-32.0 pg] 26.9 pg *LOW* (05/19/17 7:23 PM) MCHC [32.0-36.0 gm/dL] 31.3 gm/dL *LOW* (05/19/17 7:23 PM) RDW [11.5-14.5 %] 14.7 % *HI* (05/19/17 7:23 PM) Platelet [150-400 10*3/uL] 182 10*3/uL (05/19/17 7:23 PM) MPV [9.4-12.4 fL] 11.2 fL (05/19/17 7:23 PM) Immature Granulocytes [0.0-1.0 %] 0.2 % (05/19/17 7:23 PM) Neutrophils [51-75 %] 68 % (05/19/17 7:23 PM) Lymphocytes [20-46 %] 23 % (05/19/17 7:23 PM) Monocytes [4-11 %] 7 % (05/19/17 7:23 PM) Eosinophils [0-4 %] 2 % (05/19/17 7:23 PM) Basophils [0-2 %] 0 % (05/19/17 7:23 PM) Neutro Absolute [1.90-7.00] 6.11 (05/19/17 7:23 PM) Lymph Absolute [0.80-3.30] 2.04 (05/19/17 7:23 PM) [place] Absolute [0.30-1.00] 0.60 (05/19/17 7:23 PM) Eos Absolute [0.00-0.50] 0.21 (05/19/17 7:23 PM) Baso Absolute [0.00-0.20] 0.04 (05/19/17 7:23 PM) Nucleated RBC Automated [0 /100 WBC] 0.0 /100 WBC (05/19/17 7:23 PM) Coagulation Most recent to oldest [Reference Range]: 1 INR [0.9-1.2] 1.0 (05/19/17 7:23 PM) PTT [25.0-35.0 seconds] 28.9 seconds (05/19/17 7:23 PM) Chemistry Most recent to oldest [Reference Range]: 1 Sodium Lvl [136-144 mEq/L] 135 mEq/L *LOW* (05/20/17 8:51 AM) Potassium Lvl [3.6-5.1 mEq/L] 4.7 mEq/L (05/20/17 8:51 AM) Chloride [99-109 mEq/L] 108 mEq/L (05/20/17 8:51 AM) CO2 [22-32 mEq/L] 22 mEq/L (05/20/17 8:51 AM) AGAP [3-20 mEq/L] 5 mEq/L (05/20/17 8:51 AM) BUN [4-20 mg/dL] 30 mg/dL *HI* (05/20/17 8:51 AM) Glucose Lvl [70-100 mg/dL] 204 mg/dL *HI* (05/20/17 8:51 AM) Creatinine Lvl [0.44-1.03 mg/dL] 1.34 mg/dL *HI* (05/20/17 8:51 AM) eGFR [>60 mL/min] 39 mL/min 1 *ABN* (05/20/17 8:51 AM) Calcium Lvl [8.6-10.0 mg/dL] 8.5 mg/dL *LOW* (05/20/17 8:51 AM) Albumin Lvl [3.5-4.8 gm/dL] 3.2 gm/dL *LOW* (05/20/17 8:51 AM) Total Protein [6.1-7.9 gm/dL] 6.4 gm/dL (05/19/17 7:23 PM) Globulin [1.9-4.3 gm/dL] 2.6 gm/dL (05/19/17 7:23 PM) ALT [14-54 U/L] 26 U/L (05/19/17:23 PM) AST [15-41 U/L] 48 U/L *HI* (05/19/17 7:23 PM) Alk Phos [26-104 U/L] 82 U/L (05/19/17:23 PM) Bili Total [0.2-1.2 mg/dL] 1.2 mg/dL 2 (05/19/17 7:23 PM) Magnesium Lvl [1.8-2.5 mg/dL] 1.3 mg/dL *LOW* (05/20/17 8:51 AM) Phosphorus [2.4-4.7 mg/dL] 3.1 mg/dL 3 (05/20/17 8:51 AM) Troponin [<0.06 ng/mL] 0.05 ng/mL (05/19/17: PM) Lactic Acid Lvl [0.5-2.0 mEq/L] 1.2 mEq/L (05/19/17: PM) Sodium Venous [136-144 mEq/L] 134 mEq/L *LOW* (05/19/17 8:11 PM) Potassium Venous [3.6-5.1 mEq/L] 6.4 mEq/L 4 *HHI* (05/19/17 8:11 PM) Calcium Ionized Venous [1.19-1.41 mmol/L] 1.17 mmol/L *LOW* (05/19/17 8:11 PM) Total CO2 Venous [25-29 mEq/L] 25 mEq/L (05/19/17 8:11 PM) HGB Venous NPT [12.0-16.0 gm/dL] 11.9 gm/dL *LOW* (05/19/17 8:11 PM) HCT Venous [37.0-47.0 %] 35.0 % *LOW* (05/19/17 8:11 PM) Glucose Venous [70-100 mg/dL] 253 mg/dL *HI* (05/19/17 8:11 PM) BUN Venous [4-20] 49 *HI* (05/19/17 8:11 PM) Creatinine Venous [0.4-1.0 mg/dL] 1.6 mg/dL *HI* (05/19/17 8:11 PM) Venous CL [99-109 mEq/L] 105 mEq/L (05/19/17 8:11 PM) Anion Gap, Les [3-20 mEq/L] 4 mEq/L (05/19/17 8:11 PM) Blood Glucose, Capillary [74-106 mg/dL] 152 mg/dL *HI* (05/20/17 2:43 PM) Blood Glucose, Capillary Out of Range High (05/20/17 8:14 AM) 1Result Comment: Multiply eGFR results by 1.21 for race.2Result Comment: Naproxen, specifically the metabolite O-desmethylnaproxen, may cause spurious elevation in Total Bilirubin levels.3Result Comment: High dosages of liposomal Amphotericin B (AmBisome) therapy or other drug preparations that use a liposomal envelope to facilitate drug delivery may cause falsely elevated results for phosphorus.4Result Comment: This test was performed on a whole blood specimen. The presence or absence of hemolysis cannot be assessed. Hemolysis can falsely elevate potassium levels. Normals are for venous specimens only.Therapeutic Drug Monitoring Most recent to oldest [Reference Range]: 1 Acetaminophen Lvl [10-30 ug/mL] <10 ug/mL (05/19/17 8:13 PM) Toxicology Most recent to oldest [Reference Range]: 1 U Amphetamine Scrn Negative (05/19/17 8:25 PM) U Cocaine Scrn Negative (05/19/17 8:25 PM) U Cannab Scrn Negative (05/19/17 8:25 PM) U Opiate Scrn Positive *ABN* (05/19/17 8:25 PM) U PCP Scrn Negative (05/19/17 8:25 PM) U Benzodiazepine Scrn Negative (05/19/17 8:25 PM) U Barbiturate Scrn Negative (05/19/17 8:25 PM) Methadone Lvl Negative (05/19/17 8:25 PM) Tricyclics Negative 1 (05/19/17 8:25 PM) 1Result Comment: Cut-off concentrations: Amphetamines: 1000 [...] oldest [Reference Range]: 1 UA Color Yellow (05/19/17 8:25 PM) UA Appear Sl Cloudy (05/19/17 8:25 PM) UA pH [5.0-8.0] 5.0 (05/19/17 8:25 PM) UA Leuk Est [Negative] Pos 1+ *ABN* (05/19/17 8:25 PM) UA Nitrite [Negative] Negative (05/19/17 8:25 PM) UA Protein [Negative] Negative (05/19/17 8:25 PM) UA Glucose [Negative] Pos 1+ *ABN* (05/19/17 8:25 PM) UA Ketones [Negative] Negative (05/19/17 8:25 PM) UA Urobilinogen [<1.0] Negative (05/19/17 8:25 PM) UA Bili [Negative] Negative (05/19/17 8:25 PM) UA Blood [Negative] Negative (05/19/17 8:25 PM) UA Spec Grav [1.003-1.030] 1.020 (05/19/17 8:25 PM) Type Clean Catch (05/19/17 8:25 PM) UA WBC [0-4] 5-10 *ABN* (05/19/17 8:25 PM) UA RBC [0-2] 0-2 (05/19/17 8:25 PM) Epithelial Cells 2-5 (05/19/17 8:25 PM) UA Bacteria Rare (05/19/17 8:25 PM) UA Mucous Present (05/19/17 8:25 PM) Microbiology Reports TEST:Blood Culture STATUS:Order in Progress BODY SITE: SOURCE:Blood COLLECTED DATE/TIME:05/19/17 7:23 PMBlood CultureNo growth after 12 hours incubation. Nursing unit/client will be called if growth is detected. -TEST:Blood Culture STATUS:Order in Progress BODY SITE: SOURCE:Blood COLLECTED DATE/TIME:05/19/17 7:23 PMBlood CultureNo growth after 12 hours incubation. Nursing unit/client will be called if growth is detected. - Immunizations Given and Recorded Vaccine Date Status Refusal Reason influenza virus vaccine, inactivated 05/09/16 Given influenza virus vaccine, inactivated1 05/24/15 Given influenza virus vaccine, inactivated2 05/24/15 Given influenza virus vaccine, inactivated 06/14/14 Given pneumococcal 23-polyvalent vaccine3 01/28/14 Given 1Early/Late Reason: Other : DID NOT CROSS [id number] Comment: did not cross [id number]/Late Reason: Other : STATUS Procedures Procedure Date Related Diagnosis Body Site Arterial puncture, withdrawal of blood for 05/20/17 diagnosis Arterial puncture, withdrawal of blood for 05/19/17 diagnosis Open Reduction Internal Fixation Ankle (Left)1 11/01/14 Adrenalectomy Appendectomy Cholecystectomy Hysterectomy Provision of stents or bite blocks Total knee arthroplasty 1auto-populated from documented surgical case Social History Social History Type Response Smoking Status Never smoker entered on: 01/27/14
--- OUTSIDE RECORDS SUMMARY | 2018-02-16 15:09 | External Medical Summary | Referral Summary ---
:[address] [facility] Address [address] [place] [address] Care Team Providers Name Role Phone Js Jones Primary Care Physician Encounter VC Date(s): 02/12/18 - 02/12/[address] [facility] [address], [place] [address] Encounter Diagnosis Migraine headache (Discharge Diagnosis) - 02/12/18 Discharge Disposition: 01-Home or Self Care Attending Physician: Tavo Palomares DO Admitting Physician: Tavo Palomares DO Vital Signs Most recent to oldest [Reference Range]: 1 Temperature Oral [35.8-37.3 degC] 37.0 degC (02/12/18 5:53 PM) Peripheral Pulse Rate [60-100 bpm] 80 bpm (02/12/18 7:28 PM) Respiratory Rate [14-20 br/min] 16 br/min (02/12/18 7:28 PM) Blood Pressure [90-140/60-90 mmHg] 154/80 mmHg *HI* (02/12/18 7:28 PM) SpO2 97 % (02/12/18 5:53 PM) Problem List Condition Effective Dates Status Health Status Informant Acute pain(Confirmed) Active Antimicrobial resistant Active organism(Confirmed)1 Anxiety(Confirmed) Active At risk for activity < 11/01/14 Resolved intolerance(Confirmed)2 At risk for falls(Confirmed)3 < 07/15/15 Resolved At risk for falls(Confirmed)4 Active At risk for infection(Confirmed)5 < 11/01/14 Resolved At risk for injury(Confirmed)6 < 11/01/14 Resolved At risk for unstable blood glucose < 01/08/15 Resolved level(Confirmed)7 At risk of pressure sore(Confirmed) < 01/08/15 Resolved Bowel dysfunction(Confirmed)8 < 09/12/15 Resolved Chronic back pain(Confirmed) Active Back pain, chronic(Confirmed) Active Chronic tension headaches(Confirmed) Active Coronary disease(Confirmed) < 01/08/15 Resolved Diabetes(Confirmed) < 01/27/14 Resolved patient Gastroparesis due to DM(Confirmed) Active ESBL(Confirmed)9, 10 Active Fluid imbalance(Confirmed)11 < 09/12/15 Resolved H/O osteopenia(Confirmed) Active Heart disease(Confirmed) Active patient Hypercholesteremia(Confirmed) Active patient Hypertension(Confirmed) Active patient Acute kidney injury(Confirmed) Active Insomnia(Confirmed) Active Knowledge deficit(Confirmed)12, 13 Active LBP (low back pain)(Confirmed) Active Lumbar strain(Confirmed) Active Chronic migraine(Confirmed) Active Depression with anxiety(Confirmed) Active Chronic insomnia(Confirmed) Active Depression(Confirmed) Active Tissue perfusion < 01/29/14 Resolved alteration(Confirmed)14 Diabetes mellitus, insulin dependent Active (IDDM), uncontrolled(Confirmed) Diabetes mellitus type 2, Resolved uncontrolled, with complications(Confirmed) 1Urine from NOT FOUND collected 04/13/16 12:36:00 [id number] added automatically by system based on initiation of At Risk for Activity Intolerance Plan of Vdix3Lagz problem was added by Discern Expert.4This problem was added by Discern Expert.5Problem added automatically by system based on initiation of At Risk for Infection in Nutrition Planof Kzok0Dqgdsqk added automatically by system based on initiation of Risk for Injury Plan of Rxpx5Rjedcrd added automatically by system based on initiation of At Risk for Unstable Blood Glucose Planof Kgmc1Uftjspl added automatically by system based on initiation of Bowel Dysfunction Plan of Kusw3Wkfmm from NOT FOUND collected 02/06/17 20:31: 00 [id number] from NOT FOUND collected 09/07/15 17:48:00 [id number] added automatically by system based on initiation of Fluid Volume Imbalance Plan of Logg53Fsgpkdt updated automatically by system based on initiation of Knowledge Deficit Plan of Qsre88Dssbuho added automatically by system based on initiation of Knowledge Deficit Plan of Uvmf78Fxuqbkc added automatically by system based on initiation of Tissue Perfusion Cerebral Plan of Care Allergies, Adverse Reactions, Alerts Substance Reaction Severity Status penicillin Hives Medium Active Macrodantin Convulsion Severe Active Medications Dexilant 60 mg, Oral, Daily, 0 Refill(s) Start Date: 01/21/18 Status: OrderedLantus Solostar Pen 100 units/mL subcutaneous solution 34 units, SubCutaneous, Bedtime (once a day), 0 Refill(s) Start Date: 01/21/18 Status: OrderedLORazepam 1 mg oral tablet 1 mg 1 tabs, Oral, BID, 0 Refill(s) Start Date: 02/12/18 Status: OrderedLyrica 150 mg, Oral, BID, 0 Refill(s) Start Date: 01/21/18 Status: OrderedNorco 5 mg-325 mg oral tablet 1 tabs, Oral, q6hr, as needed for pain, 0 Refill(s) Start Date: 02/12/18 Status: OrderedNovoLOG FlexPen 100 units/mL injectable solution 12 units, SubCutaneous, TIDAC, 0 Refill(s) Start Date: 01/21/18 Status: OrderedtraZODone 50 mg, Oral, Bedtime (once a day), 0 Refill(s) Start Date: 01/21/18 Status: Orderedvenlafaxine 150 mg oral tablet, extended release 150 mg 1 tabs, Oral, Daily, # 30 tabs, 0 Refill(s) Start Date: 01/21/18 Status: OrderedZofran 4 mg, Oral, q8hr, as needed for nausea/vomiting, x 10 days, filled on 11/25, 0 Refill(s) Start Date: 01/21/18 Status: Ordered Results Urinalysis Most recent to oldest [Reference Range]: 1 UA Color Yellow (02/12/18 7:02 PM) UA Appear Sl Cloudy (02/12/18 7:02 PM) UA pH [5.0-8.0] 5.0 (02/12/18 7:02 PM) UA Leuk Est [Negative] Negative (02/12/18 7:02 PM) UA Nitrite [Negative] Negative (02/12/18 7:02 PM) UA Protein [Negative] Negative (02/12/18 7:02 PM) UA Glucose [Negative] Pos 3+ *ABN* (02/12/18 7:02 PM) UA Ketones [Negative] Trace *ABN* (02/12/18 7:02 PM) UA Urobilinogen [<1.0] Negative (02/12/18 7:02 PM) UA Bili [Negative] Negative (02/12/18 7:02 PM) UA Blood [Negative] Negative (02/12/18 7:02 PM) UA Spec Grav [1.003-1.030] 1.025 (02/12/18 7:02 PM) Type Clean Catch (02/12/18 7:02 PM) Immunizations Given and Recorded Vaccine Date Status Refusal Reason influenza virus vaccine, inactivated 05/09/16 Given influenza virus vaccine, inactivated1 05/24/15 Given influenza virus vaccine, inactivated2 05/24/15 Given influenza virus vaccine, inactivated 06/14/14 Given pneumococcal 23-polyvalent vaccine3 01/28/14 Given 1Early/Late Reason: Other : DID NOT CROSS [id number] Comment: did not cross [id number]/Late Reason: Other : STATUS Procedures Procedure Date Related Diagnosis Body Site Status Open Reduction Internal Fixation Ankle 11/01/14 Completed (Left)1 Adrenalectomy Completed Appendectomy Completed Cholecystectomy Completed Hysterectomy Completed Provision of stents or bite blocks Completed Total knee arthroplasty Completed 1auto-populated from documented surgical case Social History Social History Type Response Smoking Status Never smoker entered on: 01/27/14
--- OUTSIDE RECORDS SUMMARY | 2018-02-16 15:11 | External Medical Summary | Referral Summary ---
:1945 Author Organization [facility] Address [address] [place] [address] Care Team Providers Name Role Phone Josh Canas Primary Care Physician Encounter VC Date(s): 01/13/17 - 01/13/17 [facility] [address], [place] [address] Discharge Diagnosis: Chronic low back pain Discharge Diagnosis: Chronic headaches Discharge Disposition: 01-Home or Self Care Attending Physician: Joseluis Daniel JR, MD Admitting Physician: Joseluis Daniel JR, MD Referring Physician: Self Referred, X Vital Signs Most recent to oldest [Reference Range]: 1 Temperature Oral [35.8-37.3 degC] 37.2 degC (01/13/17 7:25 PM) Peripheral Pulse Rate [60-100 bpm] 82 bpm (01/13/17 9:54 PM) Heart Rate Monitored [60-100 bpm] 71 bpm (01/13/17 8:49 PM) Respiratory Rate [14-20 br/min] 16 br/min (01/13/17 9:54 PM) Blood Pressure [90-140/60-90 mmHg] 152/78 mmHg *HI* (01/13/17 9:54 PM) Mean Arterial Pressure, Cuff 130 mmHg (01/13/17 8:49 PM) SpO2 98 % (01/13/17 9:54 PM) Problem List Condition Effective Dates Status [...] 1Urine from NOT FOUND collected 04/13/16 12:36:00 [id number] added automatically by system based on initiation of At Risk for Activity Intolerance Plan of Orlh5Deoo problem was added by Discern Expert.4Problem added automatically by system based on initiation of At Risk for Infection in Nutrition Planof Yuuh3Nnwycin added automatically by system based on initiation of Risk for Injury Plan of Jfqk9Pghsduj added automatically by system based on initiation of At Risk for Unstable Blood Glucose Planof Xvqi1Awflqli added automatically by system based on initiation of Bowel Dysfunction Plan of Yevg8Yipvc from NOT FOUND collected 09/07/15 17:48:00 TKU9Bjyuqwj added automatically by system based on initiation of Fluid Volume Imbalance Plan of Skrg16Takbdpf added automatically by system based on initiation of Knowledge Deficit Plan of Vwzy04Axeofsc added automatically by system based on initiation [...] BEFORE MEAL(S) , # 10 unknown unit,eRx: [id number] Start Date: 07/30/16 Status: Orderedsertraline [...] 1Early/Late Reason: Other : DID NOT CROSS [id number] Comment: did not cross [id number]/Late Reason: Other : STATUS Procedures Procedure Date Related Diagnosis Body Site Open Reduction Internal Fixation Ankle (Left)1 11/01/14 Adrenalectomy Appendectomy Cholecystectomy Hysterectomy Provision of stents or bite blocks Total knee arthroplasty 1auto-populated from documented surgical case Social History Social History Type Response Smoking Status Never smoker Assessment and Plan No data available for this section"
--- OUTSIDE RECORDS SUMMARY | 2018-02-16 15:11 | External Medical Summary | Referral Summary ---
:1945 Author Organization [facility] Address [address] [place] [address] Care Team Providers Name Role Phone Js Jones Primary Care Physician No PCP, [facility] Primary Care Physician Guzman Vega Primary Care Physician Ze Canas Primary Care Physician Josh Canas Primary Care Physician Guzman Vega Primary Care Physician Josh Canas Primary Care Physician FriendYue Primary Care Physician Other Doctor, [facility] Primary Care Physician Unavailable Encounter [facility] [id number] Date(s): 10/24/17 - 10/25/17 [facility] [address], [place] [address] Discharge Disposition: -Psychiatric Facility Attending Physician: Tavo Palomares DO Admitting Physician: Tavo Palomares DO Vital Signs Most recent to oldest [Reference Range]: 1 Temperature Oral [35.8-37.3 degC] 37.0 degC (10/25/17 4:00 PM) Peripheral Pulse Rate [60-100 bpm] 81 bpm (10/25/17 4:00 PM) Respiratory Rate [14-20 br/min] 20 br/min (10/25/17 4:00 PM) Blood Pressure [90-140/60-90 mmHg] 124/81 mmHg (10/25/17 4:00 PM) SpO2 98 % (10/25/17 4:00 PM) Problem List Condition Effective Dates Status [...] 1Urine from NOT FOUND collected 04/13/16 12:36:00 [id number] added automatically by system based on initiation of At Risk for Activity Intolerance Plan of Ymud7Aljc problem was added by Discern Expert.4Problem added automatically by system based on initiation of At Risk for Infection in Nutrition Planof Kxkx9Dkzjvgh added automatically by system based on initiation of Risk for Injury Plan of Wmvu1Tfsinha added automatically by system based on initiation of At Risk for Unstable Blood Glucose Planof Amag8Hsqvckv added automatically by system based on initiation of Bowel Dysfunction Plan of Vbol2Uwbjm from NOT FOUND collected 02/06/17 20:31:00 MFM7Prbys from NOT FOUND collected 09/07/15 17:48:00 [id number] added automatically by system based on initiation of Fluid Volume Imbalance Plan of Zzry88Kxgtaql updated automatically by system based on initiation of Knowledge Deficit Plan of Xqfo44Eywrmwi added automatically by system based on initiation of Knowledge Deficit Plan of Pmuf79Fsscqny added automatically by system based on initiation of Tissue Perfusion Cerebral Plan of Care Allergies, Adverse Reactions, Alerts Substance Reaction Severity Status penicillin Hives Medium Active Macrodantin Convulsion Severe Active Medications NOT PRESCRIBED Methadone NOT PRESCRIBED Methadone, See Instructions, 0.5 tab oral once as needed for pain/withdrawal, 0 Refill(s) Start Date: 10/24/17 Status: Orderedacetaminophen Oral, QID, as needed for pain, 2-3 tabs, 0 Refill(s) Start Date: 10/24/17 Status: Orderedibuprofen 400 mg, Oral, QID, as needed for pain, 0 Refill(s) Start Date: 10/24/17 Status: OrderedLantus 33 units, SubCutaneous, Bedtime (once a day), 0 Refill(s) Start Date: 10/24/17 Status: OrderedNovoLOG 10 units, SubCutaneous, TIDAC, 0 Refill(s) Start Date: 10/24/17 Status: OrderedPROzac 40 mg oral capsule 40 mg 1 caps, Oral, Daily, 0 Refill(s) Start Date: 10/24/17 Status: Ordered Results Hematology Most recent to oldest [Reference Range]: 1 WBC [4.8-10.8 10*3/uL] 6.9 10*3/uL (10/24/17 5:47 PM) RBC [4.00-5.20] 4.60 (10/24/17 5:47 PM) Hgb [12.0-16.0 gm/dL] 12.2 gm/dL (10/24/17 5:47 PM) Hct [37.0-47.0 %] 38.2 % (10/24/17 5:47 PM) MCV [82.0-99.0 fL] 83.0 fL (10/24/17 5:47 PM) MCH [27.0-32.0 pg] 26.5 pg *LOW* (10/24/17 5:47 PM) MCHC [32.0-36.0 gm/dL] 31.9 gm/dL *LOW* (10/24/17 5:47 PM) RDW [11.5-14.5 %] 15.0 % *HI* (10/24/17 5:47 PM) Platelet [150-400 10*3/uL] 166 10*3/uL (10/24/17 5:47 PM) MPV [9.4-12.4 fL] 10.5 fL (10/24/17 5:47 PM) Immature Granulocytes [0.0-1.0 %] 0.0 % (10/24/17 5:47 PM) Neutrophils [51-75 %] 55 % (10/24/17 5:47 PM) Lymphocytes [20-46 %] 34 % (10/24/17 5:47 PM) Monocytes [4-11 %] 7 % (10/24/17 5:47 PM) Eosinophils [0-4 %] 4 % (10/24/17 5:47 PM) Basophils [0-2 %] 0 % (10/24/17 5:47 PM) Neutro Absolute [1.90-7.00] 3.79 (10/24/17 5:47 PM) Lymph Absolute [0.80-3.30] 2.33 (10/24/17 5:47 PM) [place] Absolute [0.30-1.00] 0.50 (10/24/17 5:47 PM) Eos Absolute [0.00-0.50] 0.27 (10/24/17 5:47 PM) Baso Absolute [0.00-0.20] 0.02 (10/24/17 5:47 PM) Nucleated RBC Automated [0 /100 WBC] 0.0 /100 WBC (10/24/17 5:47 PM) Chemistry Most recent to oldest [Reference Range]: 1 Sodium Lvl [136-144 mEq/L] 134 mEq/L *LOW* (10/24/17 5:47 PM) Potassium Lvl [3.6-5.1 mEq/L] 4.5 mEq/L (10/24/17 5:47 PM) Chloride [99-109 mEq/L] 107 mEq/L (10/24/17 5:47 PM) CO2 [22-32 mEq/L] 19 mEq/L *LOW* (10/24/17 5:47 PM) AGAP [3-20 mEq/L] 8 mEq/L (10/24/17 5:47 PM) BUN [4-20 mg/dL] 24 mg/dL *HI* (10/24/17 5:47 PM) Glucose Lvl [70-100 mg/dL] 207 mg/dL *HI* (10/24/17 5:47 PM) Creatinine Lvl [0.44-1.03 mg/dL] 1.15 mg/dL *HI* (10/24/17 5:47 PM) eGFR [>60 mL/min] 46 mL/min 1 *ABN* (10/24/17 5:47 PM) Calcium Lvl [8.6-10.0 mg/dL] 8.8 mg/dL (10/24/17 5:47 PM) Albumin Lvl [3.5-4.8 gm/dL] 3.8 gm/dL (10/24/17 5:47 PM) Total Protein [6.1-7.9 gm/dL] 6.3 gm/dL (10/24/17 5:47 PM) Globulin [1.9-4.3 gm/dL] 2.5 gm/dL (10/24/17 5:47 PM) ALT [14-54 U/L] 14 U/L (10/24/17 5:47 PM) AST [15-41 U/L] 15 U/L (10/24/17 5:47 PM) Alk Phos [26-104 U/L] 74 U/L (10/24/17 5:47 PM) Bili Total [0.2-1.2 mg/dL] 0.6 mg/dL 2 (10/24/17 5:47 PM) Blood Glucose, Capillary [74-106 mg/dL] 333 mg/dL *HI* (10/25/17 7:56 PM) Chol [0-199 mg/dL] 205 mg/dL *HI* (10/24/17 5:47 PM) Trig [0-149 mg/dL] 280 mg/dL *HI* (10/24/17 5:47 PM) HDL [40-84 mg/dL] 44 mg/dL (10/24/17 5:47 PM) LDL [0-130 mg/dL] 105 mg/dL (10/24/17 5:47 PM) VLDL Cholesterol [0-28 mg/dL] 56 mg/dL *HI* (10/24/17 5:47 PM) Cardiac Risk [0.0-5.0] 4.7 (10/24/17 5:47 PM) TSH with Reflex Free T4 [0.35-5.50 mcIU/mL] 0.73 mcIU/mL (10/24/17 5:47 PM) Hgb A1c [4.1-5.6 %] 5.7 % *HI* (10/24/17 5:47 PM) eAvg Glucose 116.9 mg/dL (10/24/17 5:47 PM) 1Result Comment: Multiply eGFR results by 1.21 for race.2Result Comment: Naproxen, specifically the metabolite O-desmethylnaproxen, may cause spurious elevation in Total Bilirubin levels.Toxicology Most recent to oldest [Reference Range]: 1 U Amphetamine Scrn Negative (10/24/17 4:49 PM) U Cocaine Scrn Negative (10/24/17 4:49 PM) U Cannab Scrn Negative (10/24/17 4:49 PM) U Opiate Scrn Positive *ABN* (10/24/17 4:49 PM) U PCP Scrn Negative (10/24/17 4:49 PM) U Benzodiazepine Scrn Negative (10/24/17 4:49 PM) U Barbiturate Scrn Negative (10/24/17 4:49 PM) Methadone Lvl Positive *ABN* (10/24/17 4:49 PM) Tricyclics Negative 1 (10/24/17 4:49 PM) 1Result Comment: Cut-off concentrations: Amphetamines: 1000 [...] oldest [Reference Range]: 1 UA Color Yellow (10/24/17 4:49 PM) UA Appear Sl Cloudy (10/24/17 4:49 PM) UA pH [5.0-8.0] 5.0 (10/24/17 4:49 PM) UA Leuk Est [Negative] Negative (10/24/17 4:49 PM) UA Nitrite [Negative] Negative (10/24/17 4:49 PM) UA Protein [Negative] Pos 1+ *ABN* (10/24/17 4:49 PM) UA Glucose [Negative] Pos 2+ *ABN* (10/24/17 4:49 PM) UA Ketones [Negative] Negative (10/24/17 4:49 PM) UA Urobilinogen [<1.0] Negative (10/24/17 4:49 PM) UA Bili [Negative] Negative (10/24/17 4:49 PM) UA Blood [Negative] Negative (10/24/17 4:49 PM) UA Spec Grav [1.003-1.030] 1.025 (10/24/17 4:49 PM) Type Clean Catch (10/24/17 4:49 PM) UA WBC [0-4] 0-2 (10/24/17 4:49 PM) UA RBC [0-2] 0-2 (10/24/17 4:49 PM) Epithelial Cells 5-10 (10/24/17 4:49 PM) UA Bacteria None Seen (10/24/17 4:49 PM) Immunizations Given and Recorded Vaccine Date Status Refusal Reason influenza virus vaccine, inactivated 05/09/16 Given influenza virus vaccine, inactivated1 05/24/15 Given influenza virus vaccine, inactivated2 05/24/15 Given influenza virus vaccine, inactivated 06/14/14 Given pneumococcal 23-polyvalent vaccine3 01/28/14 Given 1Early/Late Reason: Other : DID NOT CROSS [id number] Comment: did not cross [id number]/Late Reason: Other : STATUS Procedures Procedure Date [...]
--- OUTSIDE RECORDS SUMMARY | 2018-02-16 15:11 | External Medical Summary | Referral Summary ---
:1945 Author Organization [facility] Address [address] [place] [address] Care Team Providers Name Role Phone Robert Js Karel Primary Care Physician Encounter [facility] Date(s): 01/20/18 - 01/23/18 [facility] [address], [place] [address] Discharge Disposition: 01-Home or Self Care Attending Physician: Marvin Yen MD Admitting Physician: Marvin Yen MD Vital Signs Most recent to oldest [Reference Range]: 1 Temperature Oral [35.8-37.3 degC] 36.6 degC (01/21/18 3:00 AM) Temperature Temporal Artery [36.3-37.8 degC] 36.3 degC (01/23/18 8:00 AM) Apical Heart Rate [60-100 bpm] 85 bpm (01/21/18 1:03 AM) Peripheral Pulse Rate [60-100 bpm] 87 bpm (01/23/18 8:00 AM) Heart Rate Monitored [60-100 bpm] 62 bpm (01/22/18 11:45 AM) Respiratory Rate [14-20 br/min] 17 br/min (01/23/18 8:00 AM) Blood Pressure [90-140/60-90 mmHg] 166/78 mmHg *HI* (01/23/18 8:00 AM) Mean Arterial Pressure, Cuff 18 mmHg (01/21/18 8:19 AM) SpO2 100 % (01/23/18 8:00 AM) Problem List Condition Effective Dates Status [...] 1Urine from NOT FOUND collected 04/13/16 12:36:00 [id number] added automatically by system based on initiation of At Risk for Activity Intolerance Plan of Qjxv4Mlqw problem was added by Discern Expert.4This problem was added by Discern Expert.5Problem added automatically by system based on initiation of At Risk for Infection in Nutrition Planof Atbl8Fpbuwpl added automatically by system based on initiation of Risk for Injury Plan of Hbne6Fwjlhvn added automatically by system based on initiation of At Risk for Unstable Blood Glucose Planof Oeqv1Filvtea added automatically by system based on initiation of Bowel Dysfunction Plan of Axmj4Arbja from NOT FOUND collected 02/06/17 20:31: 00 [id number] from NOT FOUND collected 09/07/15 17:48:00 [id number] added automatically by system based on initiation of Fluid Volume Imbalance Plan of Dxyo78Hxnxdnl updated automatically by system based on initiation of Knowledge Deficit Plan of Xjmg44Dkjzbpd added automatically by system based on initiation of Knowledge Deficit Plan of Ijte16Jndfkph added automatically by system based on initiation of Tissue Perfusion Cerebral Plan of Care Allergies, Adverse Reactions, Alerts Substance Reaction Severity Status penicillin Hives Medium Active Macrodantin Convulsion Severe Active Medications Dexilant 60 mg, Oral, Daily, 0 Refill(s) Start Date: 01/21/18 Status: OrderedLantus Solostar Pen 100 units/mL subcutaneous solution 34 units, SubCutaneous, Bedtime (once a day), 0 Refill(s) Start Date: 01/21/18 Status: OrderedLipitor 40 mg, Oral, Bedtime (once a day), 0 Refill(s) Start Date: 01/21/18 Status: Orderedlisinopril 2.5 mg, Oral, Daily, 0 Refill(s) Start Date: 01/21/18 Status: OrderedLyrica 150 mg, Oral, BID, 0 Refill(s) Start Date: 01/21/18 Status: OrderedNovoLOG FlexPen 100 units/mL injectable solution [...] Refill(s) Start Date: 01/21/18 Status: Ordered Results Hematology Most recent to oldest [Reference Range]: 1 WBC [4.8-10.8 10*3/uL] 8.6 10*3/uL (01/22/18 6:22 AM) RBC [4.00-5.20] 4.46 (01/22/18 6:22 AM) Hgb [12.0-16.0 gm/dL] 11.8 gm/dL *LOW* (01/22/18 6:22 AM) Hct [37.0-47.0 %] 36.9 % *LOW* (01/22/18 6:22 AM) MCV [82.0-99.0 fL] 82.7 fL (01/22/18 6:22 AM) MCH [27.0-32.0 pg] 26.5 pg *LOW* (01/22/18 6:22 AM) MCHC [32.0-36.0 gm/dL] 32.0 gm/dL (01/22/18 6:22 AM) RDW [11.5-14.5 %] 14.6 % *HI* (01/22/18 6:22 AM) Platelet [150-400 10*3/uL] 167 10*3/uL (01/22/18 6:22 AM) MPV [9.4-12.4 fL] 10.6 fL (01/22/18 6:22 AM) Immature Granulocytes [0.0-1.0 %] 0.2 % (01/20/18 10:36 PM) Neutrophils [51-75 %] 62 % (01/20/18 10:36 PM) Lymphocytes [20-46 %] 28 % (01/20/18 10:36 PM) Monocytes [4-11 %] 7 % (01/20/18 10:36 PM) Eosinophils [0-4 %] 2 % (01/20/18 10:36 PM) Basophils [0-2 %] 0 % (01/20/18 10:36 PM) Neutro Absolute [1.90-7.00] 5.81 (01/20/18 10:36 PM) Lymph Absolute [0.80-3.30] 2.66 (01/20/18 10:36 PM) [place] Absolute [0.30-1.00] 0.69 (01/20/18 10:36 PM) Eos Absolute [0.00-0.50] 0.17 (01/20/18 10:36 PM) Baso Absolute [0.00-0.20] 0.04 (01/20/18 10:36 PM) Chemistry Most recent to oldest [Reference Range]: 1 Sodium Lvl [136-144 mEq/L] 139 mEq/L (01/22/18 6:22 AM) Potassium Lvl [3.6-5.1 mEq/L] 3.9 mEq/L (01/22/18 6:22 AM) Chloride [99-109 mEq/L] 112 mEq/L *HI* (01/22/18 6:22 AM) CO2 [22-32 mEq/L] 19 mEq/L *LOW* (01/22/18 6:22 AM) AGAP [3-20 mEq/L] 8 mEq/L (01/22/18 6:22 AM) BUN [4-20 mg/dL] 22 mg/dL *HI* (01/22/18 6:22 AM) Glucose Lvl [70-100 mg/dL] 141 mg/dL *HI* (01/22/18 6:22 AM) Creatinine Lvl [0.44-1.03 mg/dL] 1.54 mg/dL *HI* (01/22/18 6:22 AM) eGFR [>60 mL/min] 33 mL/min 1 *ABN* (01/22/18 6:22 AM) Calcium Lvl [8.6-10.0 mg/dL] 9.3 mg/dL (01/22/18 6:22 AM) Albumin Lvl [3.5-4.8 gm/dL] 3.5 gm/dL (01/22/18 6:22 AM) Total Protein [6.1-7.9 gm/dL] 7.3 gm/dL (01/20/18 10:36 PM) Globulin [1.9-4.3 gm/dL] 2.9 gm/dL (01/20/18 10:36 PM) ALT [14-54 U/L] 19 U/L (01/20/18 10:36 PM) AST [15-41 U/L] 23 U/L (01/20/18 10:36 PM) Alk Phos [26-104 U/L] 91 U/L (01/20/18 10:36 PM) Bili Total [0.2-1.2 mg/dL] 1.0 mg/dL 2 (01/20/18 10:36 PM) Magnesium Lvl [1.8-2.5 mg/dL] 1.7 mg/dL *LOW* (01/22/18 6:22 AM) Phosphorus [2.4-4.7 mg/dL] 3.9 mg/dL 3 (01/22/18 6:22 AM) Troponin [<0.06 ng/mL] <0.05 ng/mL (01/20/18 10:36 PM) Ammonia [9-35 mcmol/L] 20 mcmol/L (01/21/18 3:46 AM) Blood Glucose, Capillary [74-106 mg/dL] 359 mg/dL *HI* (01/23/18 8:15 AM) Lactic Acid-POC [0.5-2.0 mEq/L] 1.1 mEq/L (01/20/18 10:47 PM) 1Result Comment: Multiply eGFR results by 1.21 for race.2Result Comment: Naproxen, specifically the metabolite O-desmethylnaproxen, may cause spurious elevation in Total Bilirubin levels.3Result Comment: High dosages of liposomal Amphotericin B (AmBisome) therapy or other drug preparations that use a liposomal envelope to facilitate drug delivery may cause falsely elevated results for phosphorus.Therapeutic Drug Monitoring Most recent to [Reference Range]: 1 Acetaminophen Lvl [10-30 ug/mL] <10 ug/mL (01/20/18 10:36 PM) Salicylate Lvl [0-30 mg/dL] <4 mg/dL 1 (01/20/18 10:36 PM) 1Result Comment: Sulfasalazine may cause false high salicylate levels and Sulfapyridine may cause false low salicylate levels.Toxicology Most recent to [Reference Range]: 1 Ethanol Lvl Not Detected (01/20/18 10:36 PM) U Amphetamine Scrn Negative (01/20/18 10:36 PM) U Cocaine Scrn Negative (01/20/18 10:36 PM) U Cannab Scrn Negative (01/20/18 10:36 PM) U Opiate Scrn Negative (01/20/18 10:36 PM) U PCP Scrn Negative (01/20/18 10:36 PM) U Benzodiazepine Scrn Positive *ABN* (01/20/18 10:36 PM) U Barbiturate Scrn Negative (01/20/18 10:36 PM) Methadone Lvl Negative (01/20/18 10:36 PM) Tricyclics Negative 1 (01/20/18 10:36 PM) 1Result Comment: Cut-off concentrations: Amphetamines: 1000 [...] oldest [Reference Range]: 1 UA Color Straw (01/20/18 10:36 PM) UA Appear Clear (01/20/18 10:36 PM) UA pH [5.0-8.0] 5.0 (01/20/18 10:36 PM) UA Leuk Est [Negative] Negative (01/20/18 10:36 PM) UA Nitrite [Negative] Negative (01/20/18 10:36 PM) UA Protein [Negative] Negative (01/20/18 10:36 PM) UA Glucose [Negative] Pos 2+ *ABN* (01/20/18 10:36 PM) UA Ketones [Negative] Negative (01/20/18 10:36 PM) UA Urobilinogen [<1.0] Negative (01/20/18 10:36 PM) UA Bili [Negative] Negative (01/20/18 10:36 PM) UA Blood [Negative] Negative (01/20/18 10:36 PM) UA Spec Grav [1.003-1.030] 1.015 (01/20/18 10:36 PM) Type Clean Catch (01/20/18 10:36 PM) Immunizations Given and Recorded Vaccine Date Status Refusal Reason influenza virus vaccine, inactivated 05/09/16 Given influenza virus vaccine, inactivated1 05/24/15 Given influenza virus vaccine, inactivated2 05/24/15 Given influenza virus vaccine, inactivated 06/14/14 Given pneumococcal 23-polyvalent vaccine3 01/28/14 Given 1Early/Late Reason: Other : DID NOT CROSS [id number] Comment: did not cross [id number]/Late Reason: Other : STATUS Procedures Procedure Date [...]
--- OUTSIDE RECORDS SUMMARY | 2018-02-16 15:11 | External Medical Summary | Referral Summary ---
:1945 Author Organization [facility] Address [address] [place] [address] Care Team Providers Name Role Phone Guzman Vega Primary Care Physician Encounter [facility] Date(s): 02/19/17 - 02/20/17 [facility] [address], [place] [address] Discharge Diagnosis: Dysuria Discharge Diagnosis: Drug-seeking behavior Discharge Diagnosis: Chronic generalized pain Discharge Disposition: 01-Home or Self Care Attending Physician: Tavo Palomares DO Admitting Physician: Tavo Palomares DO Vital Signs Most recent to oldest [Reference Range]: 1 Temperature Oral [35.8-37.3 degC] 36.9 degC (02/19/17 9:43 PM) Peripheral Pulse Rate [60-100 bpm] 83 bpm (02/20/17 12:02 AM) Heart Rate Monitored [60-100 bpm] 83 bpm (02/19/17 11:56 PM) Respiratory Rate [14-20 br/min] 18 br/min (02/20/17 12:02 AM) Blood Pressure [90-140/60-90 mmHg] 144/96 mmHg *HI* (02/20/17 12:02 AM) Mean Arterial Pressure, Cuff 114 mmHg (02/19/17 11:56 PM) SpO2 98 % (02/20/17 12:02 AM) Problem List Condition Effective Dates Status [...] Acute kidney injury(Confirmed) Active Insomnia(Confirmed) Active Knowledge deficit(Confirmed)11 < 01/11/15 Resolved LBP (low back pain)(Confirmed) Active Lumbar strain(Confirmed) Active Chronic migraine(Confirmed) Active Depression with anxiety(Confirmed) Active Chronic insomnia(Confirmed) Active Depression(Confirmed) Active Tissue perfusion < 01/29/14 Resolved alteration(Confirmed)12 Diabetes mellitus, insulin dependent Active (IDDM), uncontrolled(Confirmed) Diabetes mellitus type 2, Resolved uncontrolled, with complications(Confirmed) 1Urine from NOT FOUND collected 04/13/16 12:36:00 [id number] added automatically by system based on initiation of At Risk for Activity Intolerance Plan of Vyar7Gbdn problem was added by Discern Expert.4Problem added automatically by system based on initiation of At Risk for Infection in Nutrition Planof Iwlm6Xkjmqqz added automatically by system based on initiation of Risk for Injury Plan of Dfva9Okthdjr added automatically by system based on initiation of At Risk for Unstable Blood Glucose Planof Evjv8Crfmnrs added automatically by system based on initiation of Bowel Dysfunction Plan of Mroe1Vqpgt from NOT FOUND collected 02/06/17 20:31:00 FQY5Kwstc from NOT FOUND collected 09/07/15 17:48:00 HIH94Fvordhj added automatically by system based on initiation of Fluid Volume Imbalance Plan of Ijdg11Tprasmm added automatically by system based on initiation of Knowledge Deficit Plan of Ulzz86Ytcdkze added automatically by system based on initiation [...] other reason (Rx) Start Date: 06/14/14 Status: OrderedFinished Med-Cephalexin 500mg Finished Med-Cephalexin 500mg, [...] (Rx) Start Date: 10/02/16 Status: Ordered Results Toxicology Most recent to oldest [Reference Range]: 1 U Amphetamine Scrn Negative (02/19/17 11:06 PM) U Cocaine Scrn Negative (02/19/17 11:06 PM) U Cannab Scrn Negative (02/19/17 11:06 PM) U Opiate Scrn Positive *ABN* (02/19/17 11:06 PM) U PCP Scrn Negative (02/19/17 11:06 PM) U Benzodiazepine Scrn Positive *ABN* (02/19/17 11:06 PM) U Barbiturate Scrn Negative (02/19/17 11:06 PM) Methadone Lvl Negative (02/19/17 11:06 PM) Tricyclics Negative 1 (02/19/17 11:06 PM) 1Result Comment: Cut-off concentrations: Amphetamines: 1000 [...] oldest [Reference Range]: 1 UA Color Yellow (02/19/17 11:06 PM) UA Appear Sl Cloudy (02/19/17 11:06 PM) UA pH [5.0-8.0] 5.0 (02/19/17 11:06 PM) UA Leuk Est [Negative] Trace *ABN* (02/19/17 11:06 PM) UA Nitrite [Negative] Negative (02/19/17 11:06 PM) UA Protein [Negative] Negative (02/19/17 11:06 PM) UA Glucose [Negative] Pos 2+ *ABN* (02/19/17 11:06 PM) UA Ketones [Negative] Negative (02/19/17 11:06 PM) UA Urobilinogen [<1.0] Negative (02/19/17 11:06 PM) UA Bili [Negative] Negative (02/19/17 11:06 PM) UA Blood [Negative] Negative (02/19/17 11:06 PM) UA Spec Grav [1.003-1.030] 1.025 (02/19/17 11:06 PM) Type Clean Catch (02/19/17 11:06 PM) UA WBC [0-4] 2-5 (02/19/17 11:06 PM) UA RBC [0-2] 0-2 (02/19/17 11:06 PM) Epithelial Cells 2-5 (02/19/17 11:06 PM) UA Bacteria Rare (02/19/17 11:06 PM) Immunizations Given and Recorded Vaccine Date Status Refusal Reason influenza virus vaccine, inactivated 05/09/16 Given influenza virus vaccine, inactivated1 05/24/15 Given influenza virus vaccine, inactivated2 05/24/15 Given influenza virus vaccine, inactivated 06/14/14 Given pneumococcal 23-polyvalent vaccine3 01/28/14 Given 1Early/Late Reason: Other : DID NOT CROSS [id number] Comment: did not cross [id number]/Late Reason: Other : STATUS Procedures Procedure Date Related Diagnosis Body Site Open Reduction Internal Fixation Ankle (Left)1 11/01/14 Adrenalectomy Appendectomy Cholecystectomy Hysterectomy Provision of stents or bite blocks Total knee arthroplasty 1auto-populated from documented surgical case Social History Social History Type Response Smoking Status Never smoker Assessment and Plan No data available for this section
--- OUTSIDE RECORDS SUMMARY | 2018-02-16 15:11 | External Medical Summary | Referral Summary ---
:1945 Author Organization [facility] Address [address] [place] [address] Care Team Providers Name Role Phone Js Jones Primary Care Physician Encounter VC Date(s): 01/20/18 - 01/20/18 [facility] [address], [place] [address] Encounter Diagnosis Drug-seeking behavior (Discharge Diagnosis) - 01/20/18 Suicidal ideation (Discharge Diagnosis) - 01/20/18 Hyperglycemia (Discharge Diagnosis) - 01/20/18 Discharge Disposition: 01-Home or Self Care Attending Physician: Tavo Palomares DO Admitting Physician: Tavo Palomares DO Vital Signs Most recent to oldest [Reference Range]: 1 Temperature Oral [35.8-37.3 degC] 36.2 degC (01/20/18 5:38 PM) Peripheral Pulse Rate [60-100 bpm] 96 bpm (01/20/18 5:38 PM) Respiratory Rate [14-20 br/min] 16 br/min (01/20/18 5:38 PM) Blood Pressure [90-140/60-90 mmHg] 156/91 mmHg *HI* (01/20/18 5:38 PM) SpO2 98 % (01/20/18 5:38 PM) Problem List Condition Effective Dates Status [...] 1Urine from NOT FOUND collected 04/13/16 12:36:00 [id number] added automatically by system based on initiation of At Risk for Activity Intolerance Plan of [id number] problem was added by Discern Expert.4This problem was added by Discern Expert.5Problem added automatically by system based on initiation of At Risk for Infection in Nutrition Planof [id number] added automatically by system based on initiation of Risk for Injury Plan of [id number] added automatically by system based on initiation of At Risk for Unstable Blood Glucose Planof [id number] added automatically by system based on initiation of Bowel Dysfunction Plan of [id number] from NOT FOUND collected 02/06/17 20:31: 00 [id number] from NOT FOUND collected 09/07/15 17:48:00 [id number] added automatically by system based on initiation of Fluid Volume Imbalance Plan of [id number] updated automatically by system based on initiation of Knowledge Deficit Plan of [id number] added automatically by system based on initiation of Knowledge Deficit Plan of [id number] added automatically by system based on initiation of Tissue Perfusion Cerebral Plan of Care Allergies, Adverse Reactions, Alerts Substance Reaction Severity Status penicillin Hives Medium Active Macrodantin Convulsion Severe Active Medications atorvastatin 40 mg oral tablet 40 mg 1 tabs, Oral, Daily, 0 Refill(s) Start Date: 01/21/18 Status: OrderedDexilant 60 mg oral delayed release capsule 60 mg 1 caps, Oral, Daily, 0 Refill(s) Start Date: 01/21/18 Status: OrderedFLUoxetine 40 mg oral capsule 40 mg 1 caps, Oral, Daily, 0 Refill(s) Start Date: 01/21/18 Status: Orderedgabapentin 100 mg oral capsule 100 mg 1 caps, Oral, TID, 0 Refill(s) Start Date: 01/21/18 Status: OrderedHYDROcodone-acetaminophen 5 mg-325 mg oral tablet range dose 1 tabs, Oral, q4hr, as needed for pain, every 4-6 hours as needed, 0 Refill(s) Start Date: 01/21/18 Status: OrderedLantus Solostar Pen 100 units/mL subcutaneous solution 0 Refill(s) Start Date: 01/21/18 Status: Orderedlisinopril 2.5 mg oral tablet 2.5 mg 1 tabs, Oral, Daily, 0 Refill(s) Start Date: 01/21/18 Status: OrderedLORazepam 1 mg oral tablet 0 Refill(s) Start Date: 01/21/18 Status: OrderedLyrica 150 mg oral capsule 150 mg 1 caps, Oral, BID, 0 Refill(s) Start Date: 01/21/18 Status: OrderedMisc Medication See Instructions, Not a complete or verified home medication list. Pharmacy to verify, 0 Refill(s) Start Date: 01/21/18 Status: OrderedNovoLOG FlexPen 100 units/mL injectable solution 0 Refill(s) Start Date: 01/21/18 Status: Orderedondansetron 4 mg oral tablet 0 Refill(s) Start Date: 01/21/18 Status: OrderedtraZODone 50 mg oral tablet 50 mg 1 tabs, Oral, Bedtime (once a day), 0 Refill(s) Start Date: 01/21/18 Status: Orderedvenlafaxine 150 mg oral tablet, extended release 150 mg 1 tabs, Oral, Daily, # 30 tabs, 0 Refill(s) Start Date: 01/21/18 Status: Ordered Results Hematology Most recent to oldest [Reference Range]: 1 WBC [4.8-10.8 10*3/uL] 9.4 10*3/uL (01/20/18 3:46 PM) RBC [4.00-5.20] 4.80 (01/20/18 3:46 PM) Hgb [12.0-16.0 gm/dL] 13.2 gm/dL (01/20/18 3:46 PM) Hct [37.0-47.0 %] 40.0 % (01/20/18 3:46 PM) MCV [82.0-99.0 fL] 83.3 fL (01/20/18 3:46 PM) MCH [27.0-32.0 pg] 27.5 pg (01/20/18 3:46 PM) MCHC [32.0-36.0 gm/dL] 33.0 gm/dL (01/20/18 3:46 PM) RDW [11.5-14.5 %] 14.4 % (01/20/18 3:46 PM) Platelet [150-400 10*3/uL] 182 10*3/uL (01/20/18 3:46 PM) MPV [9.4-12.4 fL] 10.9 fL (01/20/18 3:46 PM) Immature Granulocytes [0.0-1.0 %] 0.3 % (01/20/18 3:46 PM) Neutrophils [51-75 %] 70 % (01/20/18 3:46 PM) Lymphocytes [20-46 %] 22 % (01/20/18 3:46 PM) Monocytes [4-11 %] 6 % (01/20/18 3:46 PM) Eosinophils [0-4 %] 2 % (01/20/18 3:46 PM) Basophils [0-2 %] 0 % (01/20/18 3:46 PM) Neutro Absolute [1.90-7.00] 6.53 (01/20/18 3:46 PM) Lymph Absolute [0.80-3.30] 2.09 (01/20/18 3:46 PM) King Absolute [0.30-1.00] 0.55 (01/20/18 3:46 PM) Eos Absolute [0.00-0.50] 0.14 (01/20/18 3:46 PM) Baso Absolute [0.00-0.20] 0.02 (01/20/18 3:46 PM) Nucleated RBC Automated [0 /100 WBC] 0.0 /100 WBC (01/20/18 3:46 PM) Chemistry Most recent to oldest [Reference Range]: 1 Sodium Lvl [136-144 mEq/L] 135 mEq/L *LOW* (01/20/18 3:46 PM) Potassium Lvl [3.6-5.1 mEq/L] 4.5 mEq/L (01/20/18 3:46 PM) Chloride [99-109 mEq/L] 109 mEq/L (01/20/18 3:46 PM) CO2 [22-32 mEq/L] 15 mEq/L *LOW* (01/20/18 3:46 PM) AGAP [3-20 mEq/L] 11 mEq/L (01/20/18 3:46 PM) BUN [4-20 mg/dL] 26 mg/dL *HI* (01/20/18 3:46 PM) Glucose Lvl [70-100 mg/dL] 310 mg/dL *HI* (01/20/18 3:46 PM) Creatinine Lvl [0.44-1.03 mg/dL] 1.38 mg/dL *HI* (01/20/18 3:46 PM) eGFR [>60 mL/min] 38 mL/min 1 *ABN* (01/20/18 3:46 PM) Calcium Lvl [8.6-10.0 mg/dL] 9.5 mg/dL (01/20/18 3:46 PM) Albumin Lvl [3.5-4.8 gm/dL] 4.1 gm/dL (01/20/18 3:46 PM) Total Protein [6.1-7.9 gm/dL] 6.8 gm/dL (01/20/18 3:46 PM) Globulin [1.9-4.3 gm/dL] 2.7 gm/dL (01/20/18 3:46 PM) ALT [14-54 U/L] 19 U/L (01/20/18 3:46 PM) AST [15-41 U/L] 22 U/L (01/20/18 3:46 PM) Alk Phos [26-104 U/L] 88 U/L (01/20/18 3:46 PM) Bili Total [0.2-1.2 mg/dL] 1.0 mg/dL 2 (01/20/18 3:46 PM) Blood Glucose, Capillary [70-100 mg/dL] 262 mg/dL *HI* (01/20/18 5:19 PM) 1Result Comment: Multiply eGFR results by 1.21 for race.2Result Comment: Naproxen, specifically the metabolite O-desmethylnaproxen, may cause spurious elevation in Total Bilirubin levels.Toxicology Most recent to oldest [Reference Range]: 1 U Amphetamine Scrn Negative (01/20/18 3:46 PM) U Cocaine Scrn Negative (01/20/18 3:46 PM) U Cannab Scrn Negative (01/20/18 3:46 PM) U Opiate Scrn Negative (01/20/18 3:46 PM) U PCP Scrn Negative (01/20/18 3:46 PM) U Benzodiazepine Scrn Positive *ABN* (01/20/18 3:46 PM) U Barbiturate Scrn Negative (01/20/18 3:46 PM) Methadone Lvl Negative (01/20/18 3:46 PM) Tricyclics Negative 1 (01/20/18 3:46 PM) 1Result Comment: Cut-off concentrations: Amphetamines: 1000 [...] oldest [Reference Range]: 1 UA Color Yellow (01/20/18 3:46 PM) UA Appear Cloudy *ABN* (01/20/18 3:46 PM) UA pH [5.0-8.0] 5.0 (01/20/18 3:46 PM) UA Leuk Est [Negative] Negative (01/20/18 3:46 PM) UA Nitrite [Negative] Negative (01/20/18 3:46 PM) UA Protein [Negative] Negative (01/20/18 3:46 PM) UA Glucose [Negative] Pos 3+ *ABN* (01/20/18 3:46 PM) UA Ketones [Negative] Trace *ABN* (01/20/18 3:46 PM) UA Urobilinogen [<1.0] Negative (01/20/18 3:46 PM) UA Bili [Negative] Negative (01/20/18 3:46 PM) UA Blood [Negative] Negative (01/20/18 3:46 PM) UA Spec Grav [1.003-1.030] 1.020 (01/20/18 3:46 PM) Type Clean Catch (01/20/18 3:46 PM) Immunizations Given and Recorded Vaccine Date Status Refusal Reason influenza virus vaccine, inactivated 05/09/16 Given influenza virus vaccine, inactivated1 05/24/15 Given influenza virus vaccine, inactivated2 05/24/15 Given influenza virus vaccine, inactivated 06/14/14 Given pneumococcal 23-polyvalent vaccine3 01/28/14 Given 1Early/Late Reason: Other : DID NOT CROSS [id number] Comment: did not cross [email or web address]/Late Reason: Other : STATUS Procedures Procedure Date [...]
--- OUTSIDE RECORDS SUMMARY | 2018-02-16 15:12 | External Medical Summary | Referral Summary ---
:1945 Author Care Team Providers Name Role Phone Friend, Yue Christina Primary Care Physician Encounter VC Date(s): 10/17/14 - 10/17/14 [facility] [address] [id number] [place] [address] Discharge Diagnosis: Back pain Discharge Diagnosis: Acute diarrhea Discharge Disposition: Home or Self Care Attending Physician: Jaymie West MD Admitting Physician: Josh Canas DO Vital Signs Most recent to oldest [Reference Range]: 1 Temperature Oral [35.8-37.3 degC] 36.1 degC (10/17/14 3:21 PM) Peripheral Pulse Rate [60-100 bpm] 86 bpm (10/17/14 3:21 PM) Respiratory Rate [14-20 br/min] 16 br/min (10/17/14 3:21 PM) Blood Pressure [90-140/60-90 mmHg] 118/80 mmHg (10/17/14 3:21 PM) Problem List Condition Effective Dates Status Health Status Informant Acute pain(Confirmed) Active Anxiety(Confirmed) Active Chronic back pain(Confirmed) Active Depression(Confirmed) Active Diabetes(Confirmed) Active patient Heart disease(Confirmed) Active patient LBP (low back pain)(Confirmed) Active Chronic insomnia(Confirmed) Active Tissue perfusion Active alteration(Confirmed)1 1Problem added automatically by system based on initiation of Tissue Perfusion Cerebral Plan of Care Allergies, Adverse Reactions, Alerts Substance Reaction Severity Status Macrodantin Convulsion Severe Active penicillin Adverse Reaction Active Medications Aleve Caplet 220 mg, Oral, Daily, as needed for pain, 3 tabs, 0 Refill(s) Special Instructions: 3 tabs Start Date: 01/28/14 Status: Orderedaspirin 81 mg oral tablet 1 tabs, Oral, Daily, # 30 tabs, 0 Refill(s), other reason (Rx) Start Date: 06/14/14 Status: Orderedatorvastatin 40 mg oral tablet 1 tabs, Oral, Bedtime (once a day), # 30 tabs, 11 Refill(s), Pharmacy: [id number], 1 tabs Oral Bedtime (once a day) Start Date: 07/28/14 Status: OrderedBrilinta 90 mg oral tablet 1 tabs, Oral, BID, 0 Refill(s) Start Date: 01/31/14 Status: OrderedbusPIRone 7.5 mg oral tablet 1 tabs, Oral, BID, # 60 tabs, 3 Refill(s), Pharmacy: [id number], 1 tabs Oral BID Start Date: 08/30/14 Status: OrderedglipiZIDE 10 mg oral tablet 1 tabs, Oral, Daily, # 30 tabs, 11 Refill(s), Pharmacy: [id number], 1 tabs Oral Daily,x30 days Start Date: 08/30/14 Stop Date: 08/25/15 Status: OrderedmetFORMIN 1000 mg oral tablet 1 tabs, Oral, BID, # 60 tabs, 2 Refill(s), Pharmacy: [id number], 1 tabs Oral BID Start Date: 08/19/14 Status: Orderedmetoclopramide 10 mg, Oral, TID, 0 Refill(s) Start Date: 01/28/14 Status: Orderedmetoprolol tartrate 25 mg oral tablet 1 tabs, Oral, BID, 0 Refill(s) Start Date: 01/31/14 Status: OrderedNorco 7.5 mg-325 mg oral tablet 1 tabs, Oral, q6hr, as needed for pain, # 70 tabs, 0 Refill(s) Start Date: 09/20/14 Status: Orderedsertraline 100 mg oral tablet 1.5 tabs, Oral, Daily, # 135 tabs, 3 Refill(s), Pharmacy: [id number] , 1.5 tabs Oral Daily Start Date: 06/14/14 Status: OrderedtraZODone 50 mg oral tablet 1 tabs, Oral, Bedtime (once a day), Half to a full tablet before bed., # 30 tabs , 0 Refill(s), 1 tabs Oral Bedtime (once a day),Instr:Half to a full tablet before bed. Special Instructions: Half to a full tablet before bed. Start Date: 10/17/14 Status: Ordered Results No data available for this section Immunizations Vaccine Date Refusal Reason influenza virus vaccine, inactivated 06/14/14 pneumococcal 23-polyvalent vaccine1 01/28/14 1Early/Late Reason: Other : STATUS Procedures Procedure Date Related Diagnosis Body Site Adrenalectomy Appendectomy Cholecystectomy Hysterectomy Total knee arthroplasty Social History Social History Type Response Smoking Status Never smoker Assessment and Plan No data available for this section
[2018-02-16 16:26] VITALS: BMI 28.2
[2018-02-16] MEDS ORDERED: HALOPERIDOL 0.5 MG TABLET PO PRN ×2 (17:21→17:59)
[2018-02-16] MEDS ORDERED: HALOPERIDOL 5 MG/ML INJECTION IM PRN ×2 (17:21→17:59)
[2018-02-16] MEDS ORDERED: LORazepam 0.5 MG TABLET PO PRN ×2 (17:21→17:59)
[2018-02-16] MEDS ORDERED: ACETAMINOPHEN 500 MG TABLET PO PRN (17:45)
[2018-02-16] MEDS: INSULIN GLARGINE 100unit/ml INJECTION SQ SCH ×2 (19:57→20:53)
[2018-02-16] MEDS: TRAZODONE 50 MG TABLET PO SCH ×2 (19:58→20:53)
[2018-02-16] MEDS: PREGABALIN 150 MG CAPSULE PO SCH ×2 (19:58→20:53)
[2018-02-16] MEDS: TRAMADOL 50 MG TABLET PO PRN (20:00)
--- NOTE | 2018-02-16 21:05 | 24 Hour Neuropsychiatic Eval ---
Date of Admission: 02/16/18 15:00 Chief complaint: s/p suicide attempt History of Present Illness: Patient is a 72-year-old female who was admitted to [facility] on 02/16/[address] [facility] in [place] s/p suicide attempt by insulin overdose. Patient was recently hospitalized on this unit from 10/25-10/31/17. She has a history of abusing narcotics and at that time, patient was set up with pain management. She now states that she was sick and slept through this appointment, so had been getting narcotics from her PCP. When she ran out early and he refused to fill them, she attempted suicide by overdosing on insulin on 02/12/18. Patient lives with a friend/cable worker helper named Guzman. From her report, Guzman looked at her and said "You did it, didn't you?" and called 911. Patient now states she is very thankful to be alive and does not want to harm herself again, but has also said that she doesn't want to live if she can't have narcotics. Patient's daughter is DPOA and is now helping with finances, but she does not live locally. [facility] Patient Stated Medical History Migraine Yes: chronic tension headaches Multiple Sclerosis Yes Dental Problems Yes: wears dentures Myocardial Infarction Yes: per pt. report "about 3 years ago" - not found on H&P Diabetes Mellitus Type 1 Yes Other GI Yes: gastroparesis d/t DM Other Yes: hx. of acute kidney injury Other Musculoskeletal Yes: osteopenia; lumbar strain Other Infectious Yes: ESBL; antimicrobial resistant organism Depression Yes Surgical History: ORIF left ankle - Dr. Jones, 10/2014. Hysterectomy. Appendectomy. Total knee replacement. Cholestectomy. Adrenalectomy. Family History Updates: Mother - , lung cancer. Father - , alcohol abuse. - Social History Smoking status: Never smoker Substance use type: does not use, other (history of narcotic use for chronic pain, recently discontinued per PCP - tried a friends methadone.) Alcohol intake frequency: does not drink Housing: apartment Household members: significant other Current occupational status: unemployed, disabled Does patient use chewing tobacco?: No Current residence: Apartment/Private Home Social history: Lives with friend/cable worker helper Guzman Daughter is DPOA Strengths: ambulatory, can communicate verbally Review of Systems All systems: reviewed and no additional remarkable complaints except as stated - Musculoskeletal Musculoskeletal: Present: other (endorses chronic pain in back, knee) - Psychiatric Psychiatric: Present: as per HPI Mental Status Exam Vitals: Last Vital Signs Temp 97.2 F 02/16/18 20:36 Pulse 73 02/16/18 20:36 Resp 16 02/16/18 20:36 BP 153/69 H 02/16/18 20:36 Pulse Ox 100 02/16/18 20:36 Height: 1.73 m Weight: 82.2 kg - Mental Status Exam Muscle Strength/Tone: Normal Dressing: Casual Grooming: Fair Attitude: Manipulative Motor Activity: Normal Eye Contact: Good Speech: Normal Volume: Normal Rhythm: Appropriate Rhythm Sensory: Alert Orientation: Oriented X4 Mood: Other (Sad) Affect: Sad Rate of Thoughts: Appropriate Rate Thought Organization: Organized Associations: Intact Abstract Reasoning: Poor abstract reasoning Thought Content: Ruminations, Hopelessness, Helplessness, Somatic Concerns Perception/Psychotic: Perception Normal Language: Naming Intact Fund of Knowledge: Katelyn aware current events Memory: Grossly Intact Suicidal Ideation: Other (s/p suicide attempt by insulin overdose) Homicidal Ideation: Denies Insight: Limited Judgement: Limited Impulse Control: Fair Assessment and Plan (1) Suicide attempt Problem details: History of MDD Status: Acute (2) Opiate dependence Status: Acute (3) Substance induced mood disorder Status: Chronic Agree with admission to [facility] for psychiatric evaluation and stabilization. Continue home psych meds upon admission. Stated to patient that we would not be continuing narcotics at this time as patient has hx of problematic overuse/dependence. Patient's PCP has refused to prescribe them any longer and she was tapered/ weaned off of them at recent hospitalization at [facility]. She is willing to try PRN tramadol tonight. Have consulted hospitalist for optimization of medical comorbidities. Will obtain further collateral from support/family. Monitor mood, behavior, response to treatment.
[2018-02-17] MEDS: TRAMADOL 50 MG TABLET PO PRN ×3 (06:15→20:37)
[2018-02-17] MEDS: PANTOPRAZOLE 40 MG TABLET PO SCH (06:25)
[2018-02-17] MEDS: PREGABALIN 150 MG CAPSULE PO SCH ×2 (08:10→20:37)
[2018-02-17] MEDS: INSULIN ASPART 100unit/ml INJECTION SQ SCH ×3 (08:10→16:46)
--- NOTE | 2018-02-17 08:52 | History & Physical Report ---
History of Present Illness Date: 02/17/18 Chief complaint: Suicide attempt HPI: Cristina is a 72-year-old female who was evaluated at [facility] emergency room on 02/12 for migraine headache. She received an injection of pain medication and was discharged home. When she got home she reports that the pain got worse and she intentionally overdosed on meal time 100 units. She then called someone who activated EMS. She returned to the hospital where initially blood sugar was over 200 however dropped to 40. She was admitted acutely until medically stable and then was accepted to [facility] for ongoing psychiatric. All specific history is obtained from old records/chart. She has had a previous suicide attempt in october of 2017 and was on the [facility] unit at that time. She has a long standing history of chronic pain and used Jefferson. She states that her PCP Dr Js Jones was no longer filling RX. Reviewing external medication hx she is continues to receive monthly Jefferson prescriptions- 02/09/18- #30, 01/27/18- #30, 01/07/18- #60, 12/15/17- #60, 11/25/17 #60, 11/06/28- #90. Review of Systems All systems PM: 10-point ROS was reviewed, no additional remarkable complaints except - Musculoskeletal Musculoskeletal: Present: back pain (Lumbar back pain), neck pain Past Medical History Medical History Updates: Hypertension. Diabetes. Chronic Migraines. Depression. Anxiety. Chronic back pain. CAD. Fibromyalgia. CKD- baseline 1- 1.2 Surgical History: Heart cath with [facility]- 2013. ORIF left ankle - Dr. Jones, . Hysterectomy. Appendectomy. Total knee replacement. Cholestectomy. Adrenalectomy. 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) Social history: PCP Dr Js Jones Resides in [place] with a significant other- Guzman Previous committed suicide approximately 12 years ago Medications Home Medications Medication Instructions Recorded Confirmed Type Trazodone [Desyrel] 50 mg PO HS #30 tab 10/30/17 02/16/18 Rx Dexlansoprazole [Dexilant] 60 mg PO DAILY 02/16/18 02/16/18 History Insulin Aspart [NovoLOG] 12 unit SQ TIDWM 02/16/18 02/16/18 History Insulin Glargine,Hum.rec.anlog 34 unit SQ HS 02/16/18 02/16/18 History [Lantus] Pregabalin Cap [Lyrica] 150 mg PO BID 02/16/18 02/16/18 History Venlaflaxine XR [Effexor Xr] 150 mg PO WB 02/16/18 02/16/18 History Allergies Allergy/AdvReac Type Severity Reaction Status Date / Time nitrofurantoin Allergy Severe Muscle Verified 10/25/17 21:37 [From Macrodantin] Cramping Penicillins Allergy Intermediate Hives Verified 10/25/17 21:37 Exam Vital Signs: Temperature 97.2 F 02/17/18 08:00 Pulse Rate 94 02/17/18 08:00 Respiratory Rate 18 02/17/18 08:00 Blood Pressure 162/80 H 02/17/18 08:00 Pulse Oximetry 99 02/17/18 08:00 Height/Weight/BMI: Height 1.73 m Weight 84.3 kg Body Mass Index 28.2 - Constitutional Present: no acute distress, well nourished, well developed - Routine HEENT Exam Eye: Present: EOMI ENT: Present: mucous membranes moist, dentition normal - Routine Respiratory Exam Present: CTA bilaterally. Absent: wheezes - Routine Cardiovascular Exam Present: RRR, S1, S2. Absent: murmur - Routine Abdominal Exam Present: soft, normoactive bowel sounds, non distended. Absent: tenderness - Routine Extremities Exam Present: full ROM - Routine Back/Spine/Pelvis Exam Back/Spine: Present: paraspinal tenderness (lumbar) - Routine Skin Exam Present: intact, dry, warm - Routine Neurological Exam Present: alert, oriented X3, CN II-XII intact - Routine Psychiatric Exam Present: normal affect, normal thought process, cooperative Assessment and Plan (1) Suicidal ideation Current visit: No Status: Acute Assessment and Plan: Impression Suicide attempt-intentional overdose of insulin Chronic pain- Fibromyalgia Type II diabetes Hypertension CKD Depression/anxiety Chronic narcotic use Plan Agree with admission to [facility] under the care of Dr Vergara Monitor blood sugars- continue on NovoLog 12 units with meals and Lantus 34 units at HS Agree with minimal narcotics. Recommend scheduled Tylenol, Topical Lidoderm patch Monitor blood pressure Encourage patient to participate in unit activities and provide a safe environment Services will continue to follow patient medically manage existing comorbidities during her stay on the [facility] unit. At time of discharge medical care will return to her primary care provider, Dr. Js Jones - Physician Narrative Physician: Puma Cordova MD Narrative: Date: 02/17/18 Time: 2036 Have independently interviewed & examined pt. Chart reviewed. Case discussed with my CHEMICAL PROCESSING SUPERVISOR. Above care plan developed with my supervision; agree with above. Admitted to [facility] after suicide attempt secondary to overdosing on insulin. Having increasing pain; sounds as if her Jefferson was stopped. ER evaluation was not helpful in getting pain medications. Patient became despondent and overdoses with insulin. Pain is primary concern-diffuse pain from FM. Hard to be active due to pain. Breathing stable. No chest pressure or pain. Eating well. Lungs: clear bilaterally CV: regular AB: soft nt/nd +BS MSE: awake alert appropriate Plan: Agree with admission to [facility] for psychiatric care and medication adjustment secondary to suicide attempt. Psychiatry will manage and adjust psychoactive medications. Continue mediation therapy as prior to admission. Monitor blood sugars in light of DM and medication use. Provide safe, supportive environment. Medically stable for [facility] floor activities. Hospital Course Summary Disclaimer: The visit summary below is not to be considered part of the above Progress Note. Hospital Course: Impression Suicide attempt-intentional overdose of insulin Chronic pain- Fibromyalgia Type II diabetes Hypertension CKD Depression/anxiety Chronic narcotic use Plan Agree with admission to [facility] unit under the care of Dr Vergara Monitor blood sugars- continue on NovoLog 12 units with meals and Lantus 34 units at HS Agree with minimal narcotics. Recommend scheduled Tylenol, Topical Lidoderm patch Monitor blood pressure Encourage patient to participate in unit activities and provide a safe environment Services will continue to follow patient medically manage existing comorbidities during her stay on the [facility] unit. At time of discharge medical care will return to her primary care provider, Dr. Js Jones
[2018-02-17] MEDS ORDERED: NON-FORMULARY MEDICATION 1 EACH EACH (Dexlansoprazole [Dexilant] 60 MG) PO SCH (09:00)
[2018-02-17] MEDS: ACETAMINOPHEN 500 MG TABLET PO SCH ×3 (11:13→20:38)
[2018-02-17] MEDS: LIDOCAINE 5% PATCH TOP SCH (11:49)
[2018-02-17] MEDS: LIDOCAINE PATCH REMOVAL TOP SCH (20:30)
[2018-02-17] MEDS: TRAZODONE 50 MG TABLET PO SCH (20:37)
[2018-02-17] MEDS: INSULIN GLARGINE 100unit/ml INJECTION SQ SCH (20:38)
--- NOTE | 2018-02-17 22:32 | Neuropsych Progress Note ---
[facility] Subjective Date: 02/18/18 - Sujective/Severity of Illness Medications: Acetaminophen (Tylenol) 500 mg PO Q6H [facility] Last Admin: 02/17/18 20:38 Dose: 500 mg Haloperidol (Haldol) 0.5 mg PO Q6H PRN PRN Reason: Extreme agitation Haloperidol (Haldol) 0.5 mg PO Q6H PRN PRN Reason: Extreme agitation Haloperidol Lactate (Haldol) 0.5 mg IM Q6H PRN PRN Reason: Extreme agitation Haloperidol Lactate (Haldol) 0.5 mg IM Q6H PRN PRN Reason: Extreme agitation Insulin Aspart (Novolog) 12 unit SQ TIDWM [facility] Last Admin: 02/17/18 16:46 Dose: 12 unit Insulin Glargine (Lantus) 34 unit SQ HS [facility] Last Admin: 02/17/18 20:38 Dose: 34 unit Lidocaine (Lidoderm) 1 patch TOP DAILY [facility] Last Admin: 02/17/18 11:49 Dose: 1 patch Lidocaine HCl/Dextrose (Lidoderm Patch Removal) 1 removal TOP 2100 [facility] Last Admin: 02/17/18 20:30 Dose: 1 removal Lorazepam (Ativan) 0.5 mg PO Q6H PRN PRN Reason: Extreme agitation Lorazepam (Ativan Inj) 0.5 mg IM Q6H PRN PRN Reason: Extreme agitation Pantoprazole Sodium (Protonix Tab) 40 mg PO ACB [facility] Last Admin: 02/17/18 06:25 Dose: 40 mg Pregabalin (Lyrica) 150 mg PO BID [facility] Last Admin: 02/17/18 20:37 Dose: 150 mg Tramadol HCl (Ultram) 50 mg PO Q6H [facility]N Last Admin: 02/17/18 20:37 Dose: 50 mg Trazodone HCl (Desyrel) 50 mg PO HS [facility] Last Admin: 02/17/18 20:37 Dose: 50 mg Venlafaxine HCl (Effexor Xr) 150 mg PO WB [facility] Last Admin: 02/17/18 08:10 Dose: 150 mg Subjective: Patient seen and chart reviewed. Case discussed with treatment team. On interview, patient is redirectable but anxious and perseverative about discharge. She minimizes opiate use and doesn't feel it was problematic. She does not have insight into seriousness of recent suicide attempt. 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 Patient maintained composure when told that we would not be continuing narcotics. We have been able to set up pain mgmt. appt. for 03/18. Patient denies any SI, HI or AVH. Patient denies any adverse side effects related to psychotropic medications. Discussed options for med mgmt. and she agrees to trial of Cymbalta. Nursing staff report patient has been focused on pain meds but otherwise has not had any significant behaviors on our unit. Patient has been adherent with medications. Patient slept 6.25 hours overnight. VSS. Patient is eating well. Psychotropic PRNs required in the past 24 hours: none. Start Time: 13:20 Stop Time: 13:40 Mental Status Exam Vitals: Last Vital Signs Temp 96.6 F L 02/17/18 20:39 Pulse 75 02/17/18 20:39 Resp 18 02/17/18 20:39 BP 148/74 H 02/17/18 20:39 Pulse Ox 100 02/17/18 20:39 Height: 1.73 m Weight: 82.2 kg - Mental Status Exam Muscle Strength/Tone: Normal Dressing: Casual Grooming: Fair Attitude: Manipulative Motor Activity: Normal Eye Contact: Good Speech: Normal Volume: Normal Rhythm: Appropriate Rhythm Sensory: Alert Orientation: Oriented X4 Mood: Depressed Affect: Anxious Rate of Thoughts: Appropriate Rate Thought Organization: Organized Associations: Intact Abstract Reasoning: Intact, able to abstract Thought Content: Ruminations, Helplessness, Somatic Concerns Perception/Psychotic: Perception Normal Language: Naming Intact Fund of Knowledge: Appropriate Memory: Grossly Intact Suicidal Ideation: Other (s/p suicide attempt by insulin OD) Homicidal Ideation: Denies Insight: Limited Judgement: Limited Impulse Control: Fair - Laboratory Laboratory Results - last 24 hr 02/16/18 02/17/18 02/17/18 19:33 06:14 10:12 Glucometer 295 266 267 02/17/18 14:14 Glucometer 162 Assessment and Plan (1) Suicide attempt Problem details: r/o Depressive disorder Current visit: Yes Status: Acute (2) Opiate dependence Current visit: Yes Status: Acute Start Cymbalta 30mg PO daily to target depression, pain. Hospital Course Summary Disclaimer: The visit summary below is not to be considered part of the above Progress Note. Hospital Course: Impression Suicide attempt-intentional overdose of insulin Chronic pain- Fibromyalgia Type II diabetes Hypertension CKD Depression/anxiety Chronic narcotic use Plan Agree with admission to [facility] unit under the care of Dr Vergara Monitor blood sugars- continue on NovoLog 12 units with meals and Lantus 34 units at HS Agree with minimal narcotics. Recommend scheduled Tylenol, Topical Lidoderm patch Monitor blood pressure Encourage patient to participate in unit activities and provide a safe environment Services will continue to follow patient medically manage existing comorbidities during her stay on the [facility] unit. At time of discharge medical care will return to her primary care provider, Dr. Js Jones Psych 02/16/18: Admit to [facility] for psychiatric evaluation and stabilization. Maintain safety and elopement precautions. Continue home psych meds upon admission. Stated to patient that we would not be continuing narcotics at this time as patient has hx of problematic overuse/dependence. Patient's PCP has refused to prescribe them any longer and she was tapered/ weaned off of them at recent hospitalization at [facility]. She is willing to try PRN tramadol tonight. Have consulted hospitalist for optimization of medical comorbidities. Will obtain further collateral from support/family. Monitor mood, behavior, response to treatment. Psych 02/17/18: Start Cymbalta 30mg PO daily to target depression, pain.
[2018-02-18] MEDS: ACETAMINOPHEN 500 MG TABLET PO SCH ×7 (03:24→21:00)
[2018-02-18] MEDS: TRAMADOL 50 MG TABLET PO PRN ×3 (04:42→18:29)
[2018-02-18] MEDS: INSULIN ASPART 100unit/ml INJECTION SQ SCH ×3 (08:03→17:09)
[2018-02-18] MEDS: PREGABALIN 150 MG CAPSULE PO SCH ×2 (08:03→20:34)
[2018-02-18] MEDS: PANTOPRAZOLE 40 MG TABLET PO SCH (08:03)
[2018-02-18] MEDS: LIDOCAINE 5% PATCH TOP SCH (09:03)
[2018-02-18] MEDS: DULOXETINE 30 MG CAPSULE PO SCH (09:03)
--- NOTE | 2018-02-18 10:28 | Neuropsych Progress Note ---
[facility] Subjective Date: 02/18/18 - Sujective/Severity of Illness Medications: Acetaminophen (Tylenol) 500 mg PO Q6H [facility] Last Admin: 02/18/18 09:04 Dose: Not Given Duloxetine HCl (Cymbalta) 30 mg PO DAILY [facility] Last Admin: 02/18/18 09:03 Dose: 30 mg Haloperidol (Haldol) 0.5 mg PO Q6H PRN PRN Reason: Extreme agitation Haloperidol (Haldol) 0.5 mg PO Q6H PRN PRN Reason: Extreme agitation Haloperidol Lactate (Haldol) 0.5 mg IM Q6H PRN PRN Reason: Extreme agitation Haloperidol Lactate (Haldol) 0.5 mg IM Q6H PRN PRN Reason: Extreme agitation Insulin Aspart (Novolog) 12 unit SQ TIDWM [facility] Last Admin: 02/18/18 08:03 Dose: 12 unit Insulin Glargine (Lantus) 34 unit SQ [facility] Last Admin: 02/17/18 20:38 Dose: 34 unit Lidocaine (Lidoderm) 1 patch TOP DAILY [facility] Last Admin: 02/18/18 09:03 Dose: 1 patch Lidocaine HCl/Dextrose (Lidoderm Patch Removal) 1 removal TOP 2100 [facility] Last Admin: 02/17/18 20:30 Dose: 1 removal Lorazepam (Ativan) 0.5 mg PO Q6H PRN PRN Reason: Extreme agitation Lorazepam (Ativan Inj) 0.5 mg IM Q6H PRN PRN Reason: Extreme agitation Pantoprazole Sodium (Protonix Tab) 40 mg PO ACB [facility] Last Admin: 02/18/18 08:03 Dose: 40 mg Pregabalin (Lyrica) 150 mg PO BID [facility] Last Admin: 02/18/18 08:03 Dose: 150 mg Tramadol HCl (Ultram) 50 mg PO Q6H [facility] Last Admin: 02/18/18 09:56 Dose: 50 mg Trazodone HCl (Desyrel) 50 mg PO [facility] Last Admin: 02/17/18 20:37 Dose: 50 mg Venlafaxine HCl (Effexor Xr) 150 mg PO WB [facility] Last Admin: 02/18/18 08:03 Dose: 150 mg Subjective: Patient seen and chart reviewed. Case discussed with treatment team. On interview, patient states that she "feels much better" and would like to go home. Reminded her of seriousness of suicide attempt and recent hospitalization prior, where she had reported SI but not yet acted on it. Asked her to make list of how she would help mood despite not having access to narcotics and develop safety plan for self. She agreed. Will contact support for collateral. Patient denies any SI, HI or AVH. Patient denies any adverse side effects related to psychotropic medications. First dose of Cymbalta was this AM. Nursing staff report patient has been focused on pain meds but otherwise has not had any significant behaviors on our unit. Patient has been adherent with medications. Patient slept 7.5 hours overnight. VSS. Patient is eating well. Psychotropic PRNs required in the past 24 hours: none though did receive PRN Ultram 50mg x1. Start Time: 08:40 Stop Time: 09:00 Mental Status Exam Vitals: Last Vital Signs Temp 97.1 F 02/18/18 08:00 Pulse 74 02/18/18 08:00 Resp 16 02/18/18 08:00 BP 149/83 H 02/18/18 08:00 Pulse Ox 99 02/18/18 08:00 Height: 1.73 m Weight: 82.2 kg - Mental Status Exam Muscle Strength/Tone: Normal Dressing: Casual Grooming: Fair Attitude: Manipulative Motor Activity: Normal Eye Contact: Good Speech: Normal Volume: Normal Rhythm: Appropriate Rhythm Orientation: Oriented X4 Mood: Neutral Affect: Relaxed Rate of Thoughts: Appropriate Rate Thought Organization: Organized Associations: Intact Abstract Reasoning: Intact, able to abstract Thought Content: Other (Minimizes symptoms, wants to go home) Perception/Psychotic: Perception Normal Language: Naming Intact Fund of Knowledge: Appropriate Memory: Grossly Intact Suicidal Ideation: Other (s/p suicide attempt by insulin OD) Homicidal Ideation: Denies Insight: Limited Judgement: Limited Impulse Control: Fair - Laboratory Laboratory Results - last 24 hr 02/17/18 02/17/18 02/17/18 10:12 14:14 20:31 Glucometer 267 162 120 02/18/18 06:14 Glucometer 133 Assessment and Plan (1) Suicide attempt Problem details: r/o Depressive disorder Current visit: Yes Status: Acute (2) Opiate dependence Current visit: Yes Status: Acute Will contact support Guzman in regards to safety planning. Hospital Course Summary Disclaimer: The visit summary below is not to be considered part of the above Progress Note. Hospital Course: Impression Suicide attempt-intentional overdose of insulin Chronic pain- Fibromyalgia Type II diabetes Hypertension CKD Depression/anxiety Chronic narcotic use Plan Agree with admission to [facility] unit under the care of Dr Vergara Monitor blood sugars- continue on NovoLog 12 units with meals and Lantus 34 units at HS Agree with minimal narcotics. Recommend scheduled Tylenol, Topical Lidoderm patch Monitor blood pressure Encourage patient to participate in unit activities and provide a safe environment Services will continue to follow patient medically manage existing comorbidities during her stay on the [facility] unit. At time of discharge medical care will return to her primary care provider, Dr. Js Jones Psych 02/16/18: Admit to [facility] for psychiatric evaluation and stabilization. Maintain safety and elopement precautions. Continue home psych meds upon admission. Stated to patient that we would not be continuing narcotics at this time as patient has hx of problematic overuse/dependence. Patient's PCP has refused to prescribe them any longer and she was tapered/ weaned off of them at recent hospitalization at [facility]. She is willing to try PRN tramadol tonight. Have consulted hospitalist for optimization of medical comorbidities. Will obtain further collateral from support/family. Monitor mood, behavior, response to treatment. Psych 02/17/18: Start Cymbalta 30mg PO daily to target depression, pain. Psych 02/18/18: Will contact kyle Hinds in regards to safety planning.
[2018-02-18] MEDS: TRAZODONE 50 MG TABLET PO SCH (20:35)
[2018-02-18] MEDS: INSULIN GLARGINE 100unit/ml INJECTION SQ SCH (20:37)
[2018-02-18] MEDS: LIDOCAINE PATCH REMOVAL TOP SCH (21:38)
[2018-02-19] MEDS: TRAMADOL 50 MG TABLET PO PRN ×2 (01:05→10:46)
[2018-02-19 01:06] VITALS: RESP 16
[2018-02-19] MEDS: ACETAMINOPHEN 500 MG TABLET PO SCH ×2 (04:00→10:03)
[2018-02-19] MEDS: PANTOPRAZOLE 40 MG TABLET PO SCH (05:58)
[2018-02-19] MEDS: INSULIN ASPART 100unit/ml INJECTION SQ SCH ×2 (08:24→13:16)
[2018-02-19] MEDS: PREGABALIN 150 MG CAPSULE PO SCH (08:27)
[2018-02-19] MEDS: DULOXETINE 30 MG CAPSULE PO SCH (08:28)
[2018-02-19] MEDS: LIDOCAINE 5% PATCH TOP SCH (08:30)
[2018-02-19 09:11] VITALS: BP 145/72; PULSE 104; TEMP 97.2; O2SAT 97
--- NOTE | 2018-02-19 15:04 | Neuropsych Progress Note ---
[facility] Subjective Date: 02/19/18 - Sujective/Severity of Illness Medications: Acetaminophen (Tylenol) 500 mg PO Q6H [facility] Last Admin: 02/19/18 10:03 Dose: 500 mg Duloxetine HCl (Cymbalta) 30 mg PO DAILY [facility] Last Admin: 02/19/18 08:28 Dose: 30 mg Haloperidol (Haldol) 0.5 mg PO Q6H PRN PRN Reason: Extreme agitation Haloperidol (Haldol) 0.5 mg PO Q6H PRN PRN Reason: Extreme agitation Haloperidol Lactate (Haldol) 0.5 mg IM Q6H PRN PRN Reason: Extreme agitation Haloperidol Lactate (Haldol) 0.5 mg IM Q6H PRN PRN Reason: Extreme agitation Insulin Aspart (Novolog) 12 unit SQ TIDWM [facility] Last Admin: 02/19/18 13:16 Dose: 12 unit Insulin Glargine (Lantus) 34 unit SQ [facility] Last Admin: 02/18/18 20:37 Dose: 34 unit Lidocaine (Lidoderm) 1 patch TOP DAILY [facility] Last Admin: 02/19/18 08:30 Dose: 1 patch Lidocaine HCl/Dextrose (Lidoderm Patch Removal) 1 removal TOP 2100 [facility] Last Admin: 02/18/18 21:38 Dose: 1 removal Lorazepam (Ativan) 0.5 mg PO Q6H PRN PRN Reason: Extreme agitation Lorazepam (Ativan Inj) 0.5 mg IM Q6H PRN PRN Reason: Extreme agitation Pantoprazole Sodium (Protonix Tab) 40 mg PO ACB [facility] Last Admin: 02/19/18 05:58 Dose: 40 mg Pregabalin (Lyrica) 150 mg PO BID [facility] Last Admin: 02/19/18 08:27 Dose: 150 mg Tramadol HCl (Ultram) 50 mg PO Q6H [facility] Last Admin: 02/19/18 10:46 Dose: 50 mg Trazodone HCl (Desyrel) 50 mg PO [facility] Last Admin: 02/18/18 20:35 Dose: 50 mg Venlafaxine HCl (Effexor Xr) 150 mg PO WB [facility] Last Admin: 02/19/18 08:28 Dose: 150 mg Subjective: Patient seen and chart reviewed. Case discussed with treatment team. On interview, patient reports that she feels much better. She denies feeling depressed and is future-oriented. She completed tasks I asked of her of how to combat depression and enjoy life despite not being able to have narcotics. She is open to going to next pain mgmt. appt. on 03/18 and understands importance of keeping this appt. SW has talked with support in regards to safety. He denies that there are any weapons in the home and has removed any extra pills. He also feels that patient is safe to discharge to home. Patient denies any SI, HI or AVH. Patient denies any adverse side effects related to psychotropic medications. Nursing staff report patient has not had any significant behaviors on our unit. 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 Patient has been adherent with medications. Patient slept 6.5 hours overnight. VSS. Patient is eating well. Psychotropic PRNs required in the past 24 hours: none though did receive PRN Ultram 50mg x1. Will provide 1 week of tramadol 50mg tablets, #14 (up to BID PRN pain) with 3 refills available (a week a time) until pain mgmt appt 03/18. Start Time: 12:20 Stop Time: 12:40 Mental Status Exam Vitals: Last Vital Signs Temp 97.2 F 02/19/18 08:00 Pulse 104 H 02/19/18 08:00 Resp 16 02/19/18 08:00 BP 145/72 H 02/19/18 08:00 Pulse Ox 97 02/19/18 08:00 Height: 1.73 m Weight: 82.2 kg - Mental Status Exam Muscle Strength/Tone: Normal Dressing: Casual Grooming: Fair Attitude: Cooperative Motor Activity: Normal Eye Contact: Good Speech: Normal Volume: Normal Rhythm: Appropriate Rhythm Sensory: Alert Orientation: Oriented X4 Mood: Neutral Affect: Relaxed Rate of Thoughts: Appropriate Rate Thought Organization: Organized Associations: Intact Abstract Reasoning: Intact, able to abstract Thought Content: Normal Perception/Psychotic: Perception Normal Language: Naming Intact Fund of Knowledge: Appropriate Memory: Grossly Intact Suicidal Ideation: Denies Homicidal Ideation: Denies Insight: Fair Judgement: Fair Impulse Control: Good - Laboratory Laboratory Results - last 24 hr 02/18/18 02/18/18 02/18/18 09:56 13:56 20:02 Glucometer 275 189 98 02/19/18 06:02 Glucometer 96 Assessment and Plan (1) Suicide attempt Problem details: History of MDD Current visit: Yes Status: Acute (2) Opiate dependence Current visit: Yes Status: Acute Discharge to home with support. We have set up resources that patient agreed to , including pain mgmt. She will not have access to weapons or surplus of pills at home. Support will be with her at all times to supervise for safety initially. Hospital Course Summary Disclaimer: The visit summary below is not to be considered part of the above Progress Note. Hospital Course: Impression Suicide attempt-intentional overdose of insulin Chronic pain- Fibromyalgia Type II diabetes Hypertension CKD Depression/anxiety Chronic narcotic use Plan Agree with admission to [facility] unit under the care of Dr Vergara Monitor blood sugars- continue on NovoLog 12 units with meals and Lantus 34 units at Agree with minimal narcotics. Recommend scheduled Tylenol, Topical Lidoderm patch Monitor blood pressure Encourage patient to participate in unit activities and provide a safe environment Services will continue to follow patient medically manage existing comorbidities during her stay on the [facility] unit. At time of discharge medical care will return to her primary care provider, Dr. Js Jones Psych 02/16/18: Admit to [facility] for psychiatric evaluation and stabilization. Maintain safety and elopement precautions. Continue home psych meds upon admission. Stated to patient that we would not be continuing narcotics at this time as patient has hx of problematic overuse/dependence. Patient's PCP has refused to prescribe them any longer and she was tapered/ weaned off of them at recent hospitalization at [facility]. She is willing to try PRN tramadol tonight. Have consulted hospitalist for optimization of medical comorbidities. Will obtain further collateral from support/family. Monitor mood, behavior, response to treatment. Psych 02/17/18: Start Cymbalta 30mg PO daily to target depression, pain. Psych 02/18/18: Will contact kyle Hinds in regards to safety planning.
--- NOTE | 2018-02-19 15:05 | Neuropsychiatric Disch Summary ---
Discharge Information Date of admission: 02/16/18 15:00 Anticipated date of discharge: 02/16/18 Attending Physician: Huong Vergara MD Consults: 02/16/18 17:21 Case Management Consult [CONS] Routine Reason For Exam: medical managment and H&P Physician Consult [CONS] Routine Consulting Provider: Puma Cordova Reason For Exam: medical managment and H&P Ordering Provider has Notified Switchboard Operator: Yes - Discharge Diagnosis (1) Suicide attempt Status: Resolved (2) Opiate dependence Status: Acute (3) Substance induced mood disorder Status: Chronic Date of Admission: 02/16/18 15:00 History of Present Illness: Patient is a 72-year-old female who was admitted to [facility] on 02/16/18 from [facility] in [place] s/p suicide attempt by insulin overdose. Patient was recently hospitalized on this unit from 10/25-10/31/17. She has a history of abusing narcotics and at that time, patient was set up with pain management. She now states that she was sick and slept through this appointment, so had been getting narcotics from her PCP. When she ran out early and he refused to fill them, she attempted suicide by overdosing on insulin on 02/12/18. Patient lives with a friend/animal caretaker named Guzman. From her report, Guzman looked at her and said "You did it, didn't you?" and called 911. Patient now states she is very thankful to be alive and does not want to harm herself again, but has also said that she doesn't want to live if she can't have narcotics. Patient's daughter is DPOA and is now helping with finances, but she does not live locally. Hospital Course This is a general summary of the patient's hospital course. For more details refer to the complete medical record. Hospital course: Impression Suicide attempt-intentional overdose of insulin Chronic pain- Fibromyalgia Type II diabetes Hypertension CKD Depression/anxiety Chronic narcotic use Plan Agree with [facility] to [facility] under the care of Dr Vergara Monitor blood sugars- continue on NovoLog 12 units with meals and Lantus 34 units at HS Agree with minimal narcotics. Recommend scheduled Tylenol, Topical Lidoderm patch Monitor blood pressure Encourage patient to participate in unit activities and provide a safe environment Services will continue to follow patient medically manage existing comorbidities during her stay on the [facility] unit. At time of discharge medical care will return to her primary care provider, Dr. Js Jones Psych 02/16/18: Admit to [facility] for psychiatric evaluation and stabilization. Maintain safety and elopement precautions. Continue home psych meds upon admission. Stated to patient that we would not be continuing narcotics at this time as patient has hx of problematic overuse/dependence. Patient's PCP has refused to prescribe them any longer and she was tapered/ weaned off of them at recent hospitalization at [facility]. She is willing to try PRN tramadol tonight. Have consulted hospitalist for optimization of medical comorbidities. Will obtain further collateral from support/family. Monitor mood, behavior, response to treatment. Psych 02/17/18: Start Cymbalta 30mg PO daily to target depression, pain. Patient may choose to continue cross-taper of Cymbalta and Effexor as an outpatient. Psych 02/18/18: Will contact kyle Hinds in regards to safety planning. Resuscitation Status: Do Not Resuscitate Discharge Plan - Med Rec/Dispo Referrals/Follow Up: [facility] [Other] (03/18/18 at 2:20 pm for new patient referral. Bring your new patient packet with you that was mailed to you. If you are not able to make appt., call and reschedule [facility] [id number] [place] [address]) Js Jnoes MD [Physician] - (Dr. Alexia Jones on 02/23/18 at 1:30 pm for Hosp. follow-up. [facility]/Angela [address] [place] [address] [place] [id number]) Additional Instructions: Discharge Diagnosis: Opiate dependence History of major depressive disorder, recurrent, severe, without psychotic features Reasons for Admission: Overdose on insulin IN CASE OF PSYCHIATRIC EMERGENCY, CONTACT [facility] STAFF AT [phone] ( available 24 hrs daily) Prescriptions: New Duloxetine [Cymbalta] 30 mg PO DAILY 30 Days #30 cap Lidocaine Patch Removal [Lidoderm Patch Removal] 1 removal TOP 2100 patch Tramadol [Ultram] 50 mg PO Q6H PRN 7 Days #14 tab PRN Reason: Pain Acetaminophen [Tylenol] 500 mg PO Q6H tab Lidocaine 5% Patch [Lidoderm] 1 patch TOP DAILY #1 box Continue Insulin Glargine,Hum.rec.anlog [Lantus] 34 unit SQ HS Insulin Aspart [NovoLOG] 12 unit SQ TIDWM Venlaflaxine XR [Effexor Xr] 150 mg PO WB Trazodone [Desyrel] 50 mg PO HS #30 tab Pregabalin Cap [Lyrica] 150 mg PO BID Dexlansoprazole [Dexilant] 60 mg PO DAILY - Disposition 01 Discharged Home, Self-Care - Dismissal Complete Discharge Instructions are:: Complete
== END 2018-02-19 15:30 | disposition home or self-care (01) | DRG 918 ==
LOC: GEN 15:00
PROVIDERS: ADMIT Psychiatry & Neurology Psychiatry; ATTEND Psychiatry & Neurology Psychiatry